=== PATIENT | female | born 1985 | race Caucasian/White ===

== ENCOUNTER 2017-08-20 22:30 | Emergency (ER) | payer OTHER, SELFPAY ==
[2017-08-21] MEDS: diphenhydrAMINE 50 MG CAP PO ×2
[2017-08-21] MEDS: FAMOTIDINE 20 MG TAB PO ×2
[2017-08-21] MEDS: ALBUTEROL 90 MCG/ACT 8GM HFA INHALER INH ×2 (00:32)
[2017-08-21] MEDS: ALBUTEROL SULFATE 2.5 MG/0.5 ML INH NEB SOLN NEB ×2 (00:33)
== END 2017-08-21 00:49 | disposition left against medical advice (07) ==
LOC: M ED 22:30
DX: O99.512 Diseases of the respiratory system complicating pregnancy, second trimester (principal); J45.909 Unspecified asthma, uncomplicated; Z3A.21 21 weeks gestation of pregnancy; Z79.899 Other long term (current) drug therapy
CPT/HCPCS: 99281

== ENCOUNTER → 2017-09-19 | Outpatient (CLI) | payer OTHER ==
[2017-09-19 20:05] LABS: HEMATOCRIT 39.3 % (36.0-47.0); HEMOGLOBIN 12.8 g/dl (12.0-15.5); MEAN CORPUSCULAR HEMOGLOBIN 31.2 pg (27.0-33.0); MEAN CORPUSCULAR HGB CONC 32.6 g/dl (32.0-36.5); MEAN CORPUSCULAR VOLUME 95.9 fl (80.0-96.0); PLATELET COUNT, AUTOMATED 323 10^3/uL (150-450); RED CELL DISTRIBUTION WIDTH 13.2 % (11.5-14.5); WHITE BLOOD COUNT 12.8 10^3/uL (4.0-10.0)
== END ==
LOC: M SMT 13:15
DX: Z34.82 Encounter for supervision of other normal pregnancy, second trimester (principal)

== ENCOUNTER → 2017-09-25 | Outpatient (CLI) | payer OTHER ==
[2017-09-25 19:50] LABS: GLUCOSE CHALLENGE TEST 1 HOUR 135 MG/DL (LESS THAN 140)
== END ==
LOC: M SMT 13:39
DX: Z36.89 Encounter for other specified antenatal screening (principal)
CPT/HCPCS: 82950

== ENCOUNTER → 2017-10-06 | Outpatient (CLI) | payer OTHER ==
[2017-10-07 09:07] LABS: RH ONLY RHOGAM 1 1
== END ==
LOC: M SMT 11:21
DX: Z36.89 Encounter for other specified antenatal screening (principal); Z3A.00 Weeks of gestation of pregnancy not specified
CPT/HCPCS: 36415

== ENCOUNTER → 2017-10-07 | Outpatient (CLI) | payer OTHER ==
[2017-10-07 07:25] LABS: GLUCOSE, FASTING 86 MG/DL (LESS THAN 95)
[2017-10-07 08:47] LABS: 1 HR GLUCOSE 144 MG/DL (LESS THAN 180)
[2017-10-07 09:52] LABS: 2 HR GLUCOSE 107 MG/DL (LESS THAN 155)
[2017-10-07 10:46] LABS: 3 HR GLUCOSE 83 MG/DL (LESS THAN 140)
== END ==
LOC: M LAB 06:55
DX: Z34.82 Encounter for supervision of other normal pregnancy, second trimester (principal); Z36.89 Encounter for other specified antenatal screening

== ENCOUNTER → 2017-11-18 | Outpatient (CLI) | payer OTHER ==
[2017-11-19 11:45] LABS: HEPATITIS C VIRUS ABY INDEX 0.2 INDEX (<0.8)
== END ==
LOC: M SMT 10:39
DX: Z34.83 Encounter for supervision of other normal pregnancy, third trimester (principal)

== ENCOUNTER → 2017-12-03 | Outpatient (REF) | payer OTHER | LOC: M SMT 13:09 | DX: Z34.83 Encounter for supervision of other normal pregnancy, third trimester (principal) ==

== ENCOUNTER 2017-12-13 18:19 | Outpatient (CLI) | payer OTHER ==
[2017-12-13] MEDS: LR 1,000 ML IV (20:24)
[2017-12-13] MEDS: LACTATED RINGER'S 1000 ML IV (20:45)
[2017-12-14] MEDS: LR 1,000 ML IV (01:19)
== END 2017-12-14 07:40 | disposition home or self-care (01) ==
LOC: M LDO 18:19
DX: O47.1 False labor at or after 37 completed weeks of gestation (principal); Z3A.37 37 weeks gestation of pregnancy
CPT/HCPCS: 59025

== ENCOUNTER 2017-12-20 16:15 | Outpatient (CLI) | payer OTHER | END 2017-12-20 20:00 | disposition home or self-care (01) | LOC: M LDO 16:15 | DX: O47.1 False labor at or after 37 completed weeks of gestation (principal); Z3A.38 38 weeks gestation of pregnancy | CPT/HCPCS: 59025 ==

== ENCOUNTER → 2017-12-22 | Outpatient (CLI) | payer OTHER ==
[2017-12-22 13:43] LABS: BASO # 0.1 10^3/uL (0.0-0.2); BASO % 0.4 % (0.0-1.0); EOS # 0.8 10^3/uL (0.0-0.50); EOS % 4.8 % (0.0-3.0); HEMOGLOBIN 12.7 g/dl (12.0-15.5); IMMATURE GRANULOCYTE % 0.4 % (0-3.0); LYMPH # 3.1 10^3/uL (1.5-4.5); LYMPH % 19.5 % (24.0-44.0); MEAN CORPUSCULAR HEMOGLOBIN 30.6 pg (27.0-33.0); MEAN CORPUSCULAR HGB CONC 33.4 g/dl (32.0-36.5); MEAN CORPUSCULAR VOLUME 91.6 fl (80.0-96.0); MONO # 1.1 10^3/uL (0.0-0.8); MONO % 6.8 % (0.0-5.0); NEUTROPHILS # 10.7 10^3/uL (1.8-7.7); NEUTROPHILS % 68.1 % (36.0-66.0); PLATELET COUNT, AUTOMATED 436 10^3/uL (150-450); RED BLOOD COUNT 4.15 10^6/uL (4.00-5.40); WHITE BLOOD COUNT 15.7 10^3/uL (4.0-10.0)
[2017-12-22 13:59] LABS: ALBUMIN 2.7 GM/DL (3.2-5.2); ALBUMIN/GLOBULIN RATIO 0.75 (1.00-1.93); ALKALINE PHOSPHATASE 97 U/L (45-117); ALT/SGPT 14 U/L (12-78); ANION GAP 9 MEQ/L (8-16); AST/SGOT 18 U/L (7-37); BILIRUBIN,DIRECT < 0.1 MG/DL (0.0-0.2); BILIRUBIN,TOTAL 0.3 MG/DL (0.2-1.0); BLOOD UREA NITROGEN 6 MG/DL (7-18); CALCIUM LEVEL 8.4 MG/DL (8.5-10.1); CARBON DIOXIDE LEVEL 23 MEQ/L (21-32); CHLORIDE LEVEL 105 MEQ/L (98-107); CREATININE FOR GFR 0.57 MG/DL (0.55-1.30); GLOMERULAR FILTRATION RATE > 60.0 (>60); GLUCOSE, FASTING 93 MG/DL (70-100); PHOSPHORUS LEVEL 3.6 MG/DL (2.5-4.9); POTASSIUM SERUM 4.1 MEQ/L (3.5-5.1); SODIUM LEVEL 137 MEQ/L (136-145); TOTAL PROTEIN 6.3 GM/DL (6.4-8.2)
== END ==
LOC: M SMT 11:12
DX: Z51.81 Encounter for therapeutic drug level monitoring (principal); Z79.899 Other long term (current) drug therapy; L40.0 Psoriasis vulgaris
CPT/HCPCS: 80076

== ENCOUNTER 2017-12-23 05:56 | Outpatient (CLI) | payer OTHER ==
[2017-12-23 07:43] LABS: HEMATOCRIT 38.1 % (36.0-47.0); HEMOGLOBIN 12.3 g/dl (12.0-15.5); MEAN CORPUSCULAR HEMOGLOBIN 30.1 pg (27.0-33.0); MEAN CORPUSCULAR HGB CONC 32.3 g/dl (32.0-36.5); MEAN CORPUSCULAR VOLUME 93.2 fl (80.0-96.0); PLATELET COUNT, AUTOMATED 417 10^3/uL (150-450); RED BLOOD COUNT 4.09 10^6/uL (4.00-5.40); RED CELL DISTRIBUTION WIDTH 13.1 % (11.5-14.5); WHITE BLOOD COUNT 14.7 10^3/uL (4.0-10.0)
[2017-12-23 08:10] LABS: ALT/SGPT 14 U/L (12-78); AMYLASE 92 U/L (25-115); AST/SGOT 14 U/L (7-37); BILIRUBIN,TOTAL 0.2 MG/DL (0.2-1.0); CREATININE FOR GFR 0.59 MG/DL (0.55-1.30); GLOMERULAR FILTRATION RATE > 60.0 (>60); LDH LACTATE DEHYDROGENASE 149 U/L (84-246); LIPASE 179 U/L (73-393)
[2017-12-23 08:20] LABS: TOTAL PROTEIN,RANDOM URINE 11.4 MG/DL (0.0-12.0)
[2017-12-23 08:20] LABS: CREATININE,RANDOM URINE 43.8 MG/DL
== END 2017-12-23 11:03 | disposition home or self-care (01) ==
LOC: M LDO 05:56
DX: O26.893 Other specified pregnancy related conditions, third trimester (principal); R10.30 Lower abdominal pain, unspecified; O47.1 False labor at or after 37 completed weeks of gestation; Z3A.38 38 weeks gestation of pregnancy
CPT/HCPCS: 76705

== ENCOUNTER → 2017-12-24 | Outpatient (CLI) | payer OTHER | LOC: M LDO 09:53 | DX: O47.1 False labor at or after 37 completed weeks of gestation (principal); Z3A.39 39 weeks gestation of pregnancy | CPT/HCPCS: 59025 ==

== ENCOUNTER 2017-12-26 07:22 | Inpatient (IN) | payer OTHER ==
[2017-12-26 10:08] LABS: HEMATOCRIT 39.4 % (36.0-47.0); MEAN CORPUSCULAR HEMOGLOBIN 30.4 pg (27.0-33.0); MEAN CORPUSCULAR VOLUME 92.3 fl (80.0-96.0); PLATELET COUNT, AUTOMATED 406 10^3/uL (150-450); RED BLOOD COUNT 4.27 10^6/uL (4.00-5.40); RED CELL DISTRIBUTION WIDTH 13.2 % (11.5-14.5); WHITE BLOOD COUNT 15.5 10^3/uL (4.0-10.0)
[2017-12-26] MEDS: PENICILLIN G POTASSIUM IV 5 MU in D5W MINI-BAG PLUS 100 ML IV (10:18)
[2017-12-26] MEDS: miSOPROStol 50 MCG 1/2 TAB (S0191) PO ×3 (10:28→19:44)
[2017-12-26 11:17] LABS: AMPHETAMINES URINE REFLEX NEGATIVE (NEGATIVE); BARBITURATES URINE REFLEX NEGATIVE (NEGATIVE); BENZODIAZEPINES URINE REFLEX NEGATIVE (NEGATIVE); CANNABINOIDS URINE REFLEX NEGATIVE (NEGATIVE); COCAINE METABOLITE URINE REFLE NEGATIVE (NEGATIVE); METHADONE URINE REFLEX NEGATIVE (NEGATIVE); OPIATES URINE REFLEX NEGATIVE (NEGATIVE); PHENCYCLIDINE URINE REFLEX NEGATIVE (NEGATIVE)
[2017-12-26] MEDS: PENICILLIN G POTASSIUM IV 2.5 MU in APPROPRIATE DILUENT 1 EA IV ×2 (14:59→18:58)
[2017-12-27] MEDS ORDERED: OXYTOCIN DRIP 30 UNITS in APPROPRIATE DILUENT 1 EA IV (00:15)
[2017-12-27] MEDS: PENICILLIN G POTASSIUM IV 2.5 MU in APPROPRIATE DILUENT 1 EA IV ×2 (00:32→03:36)
[2017-12-27] MEDS: LR 1,000 ML IV (00:33)
[2017-12-27] MEDS ORDERED: FENTANYL 2MCG/ML ROPIVACAINE 0.2% IN 0.9% NACL 200ML IVBAG As Ordered (03:07)
[2017-12-27 04:31] LABS: HBSAG L&D NEGATIVE (NEGATIVE)
[2017-12-27] MEDS ORDERED: REFRIGERATOR IV KEYS XX (05:15)
[2017-12-27] MEDS ORDERED: EPIDURAL COMMENT XX (05:15)
[2017-12-27] MEDS ORDERED: NALOXONE INJ 0.4 MG/1 ML VIAL (J2310) IV (05:15)
[2017-12-27] MEDS ORDERED: FENTANYL/ROPIVACAINE/NACL BAG 200 ML EPIDURAL (05:15)
[2017-12-27] MEDS ORDERED: ePHEDrine SULFATE 25 MG/5 ML(5MG/ML) SYRINGE IV (05:15)
[2017-12-27] MEDS ORDERED: EPIDURAL/PCA KEYS XX (05:15)
[2017-12-27] MEDS ORDERED: ONDANSETRON 4MG/2ML VIAL (J2405) IV (05:15)
[2017-12-27] MEDS ORDERED: LACTATED RINGER'S 1000 ML IV (05:15)
[2017-12-27] MEDS: OXYTOCIN DRIP 30 UNITS in APPROPRIATE DILUENT 1 EA IV (05:42)
[2017-12-27] MEDS ORDERED: DIBUCAINE 1% OINTMENT 30GM TOP (05:45)
[2017-12-27] MEDS ORDERED: DOCUSATE SODIUM 100 MG CAP PO (05:45)
[2017-12-27] MEDS ORDERED: METHYLERGONOVINE MALEATE 0.2 MG TAB PO (05:45)
[2017-12-27] MEDS ORDERED: MEASLES,MUMPS,RUBELLA VACCINE INJ (MMR-II) (90707) SC (05:45)
[2017-12-27] MEDS: PRENATAL VITAMINS CHEWABLE TABLET PO (09:58)
[2017-12-27] MEDS: ACETAMINOPHEN 500 MG TAB PO ×2 (11:13→17:23)
[2017-12-27 11:35] LABS: FETAL SCREEN PROF. 1 1
[2017-12-27] MEDS: RHOGAM 300 MCG (1500 IU) INJ (J2790) IM (12:17)
[2017-12-27] MEDS: IBUPROFEN 800 MG TAB PO (15:25)
[2017-12-27] MEDS: diphenhydrAMINE INJ 50MG/ML VIAL (J1200) IV (18:59)
[2017-12-27] MEDS: CitaloPRAM (CeleXA) 20 MG TAB PO (22:48)
[2017-12-28] MEDS: ACETAMINOPHEN 500 MG TAB PO (01:37)
[2017-12-28] MEDS: IBUPROFEN 800 MG TAB PO (01:37)
[2017-12-28] MEDS: PRENATAL VITAMINS CHEWABLE TABLET PO (09:04)
== END 2017-12-28 12:00 | disposition home or self-care (01) | DRG 775 ==
LOC: M LDI 07:22 → M OBS 12-27 10:26
PROVIDERS: Advanced Practice Midwife
PROC: 3E0P7GC Introduction of Other Therapeutic Substance into Female Reproductive, Via Natural or Artificial Opening (ICD-10-PCS; 2017-12-26)
PROC: 10E0XZZ Delivery of Products of Conception, External Approach (ICD-10-PCS; principal; 2017-12-27)
DX: O99.344 Other mental disorders complicating childbirth (principal); F33.9 Major depressive disorder, recurrent, unspecified; Z3A.39 39 weeks gestation of pregnancy; F43.10 Post-traumatic stress disorder, unspecified; O99.824 Streptococcus B carrier state complicating childbirth; O99.52 Diseases of the respiratory system complicating childbirth; J45.909 Unspecified asthma, uncomplicated; O69.81X0 Labor and delivery complicated by cord around neck, without compression, not applicable or unspecified; Z37.0 Single live birth

== ENCOUNTER → 2018-01-07 | Outpatient (CLI) | payer OTHER ==
[2018-01-07 17:43] LABS: ALBUMIN 3.7 GM/DL (3.2-5.2); ALBUMIN/GLOBULIN RATIO 1.09 (1.00-1.93); ALKALINE PHOSPHATASE 118 U/L (45-117); ALT/SGPT 26 U/L (12-78); ANION GAP 10 MEQ/L (8-16); AST/SGOT 16 U/L (7-37); BILIRUBIN,DIRECT < 0.1 MG/DL (0.0-0.2); BILIRUBIN,TOTAL 0.5 MG/DL (0.2-1.0); BLOOD UREA NITROGEN 12 MG/DL (7-18); CARBON DIOXIDE LEVEL 25 MEQ/L (21-32); CHLORIDE LEVEL 105 MEQ/L (98-107); CREATININE FOR GFR 0.87 MG/DL (0.55-1.30); GLOMERULAR FILTRATION RATE > 60.0 (>60); GLUCOSE, FASTING 90 MG/DL (70-100); PHOSPHORUS LEVEL 3.8 MG/DL (2.5-4.9); POTASSIUM SERUM 4.5 MEQ/L (3.5-5.1); SODIUM LEVEL 140 MEQ/L (136-145); TOTAL PROTEIN 7.1 GM/DL (6.4-8.2)
== END ==
LOC: M LRY 10:45
DX: Z51.81 Encounter for therapeutic drug level monitoring (principal); Z79.899 Other long term (current) drug therapy; L40.0 Psoriasis vulgaris
CPT/HCPCS: 80076

== ENCOUNTER → 2018-01-19 | Outpatient (CLI) | payer OTHER ==
[2018-01-23 14:35] LABS: QuantiFERON-TB Gold Plus Negative (Negative)
== END ==
LOC: M SMT 15:45
DX: L40.0 Psoriasis vulgaris (principal); Z51.81 Encounter for therapeutic drug level monitoring; Z79.899 Other long term (current) drug therapy
CPT/HCPCS: 36415

== ENCOUNTER → 2018-03-03 | Outpatient (REF) | payer OTHER ==
[~2018-03-03] MED LIST: CELE10TA PO; IBUP-1114 PO; MAPA500T17 PO; OMEP40CA2 PO; PRENTAB16 PO
== END ==
LOC: M LAB REF 12:59
PROVIDERS: ATTEND Advanced Practice Midwife
DX: F32.1 Major depressive disorder, single episode, moderate (principal)

== ENCOUNTER → 2018-04-01 | Outpatient (CLI) | payer OTHER ==
[~2018-04-01] MED LIST changes: -MAPA500T17 PO; +MAPA500T2 PO
[2018-04-01 17:01] LABS: BASO # 0.1 10^3/uL (0.0-0.2); BASO % 0.8 % (0.0-1.0); EOS # 0.6 10^3/uL (0.0-0.50); EOS % 6.1 % (0.0-3.0); HEMATOCRIT 44.7 % (36.0-47.0); HEMOGLOBIN 14.5 g/dl (12.0-15.5); LYMPH # 3.4 10^3/uL (1.5-4.5); LYMPH % 35.3 % (24.0-44.0); MEAN CORPUSCULAR HEMOGLOBIN 29.9 pg (27.0-33.0); MEAN CORPUSCULAR HGB CONC 32.4 g/dl (32.0-36.5); MEAN CORPUSCULAR VOLUME 92.2 fl (80.0-96.0); MONO # 0.7 10^3/uL (0.0-0.8); MONO % 7.4 % (0.0-5.0); NEUTROPHILS # 4.8 10^3/uL (1.8-7.7); NEUTROPHILS % 50.2 % (36.0-66.0); PLATELET COUNT, AUTOMATED 354 10^3/uL (150-450); RED BLOOD COUNT 4.85 10^6/uL (4.00-5.40); WHITE BLOOD COUNT 9.5 10^3/uL (4.0-10.0)
[2018-04-01 17:08] LABS: ALBUMIN 3.8 GM/DL (3.2-5.2); ALT/SGPT 33 U/L (12-78); BILIRUBIN,TOTAL 0.4 MG/DL (0.2-1.0); BLOOD UREA NITROGEN 12 MG/DL (7-18); CALCIUM LEVEL 8.9 MG/DL (8.5-10.1); CARBON DIOXIDE LEVEL 25 MEQ/L (21-32); CHLORIDE LEVEL 106 MEQ/L (98-107); CHOLESTEROL LEVEL 242 MG/DL (<200); CREATININE FOR GFR 0.79 MG/DL (0.55-1.30); ETHYL ALCOHOL (ETHANOL) < 0.003 % (0.000-0.010); FREE T4 0.96 NG/DL (0.76-1.46); GLOMERULAR FILTRATION RATE > 60.0 (>60); GLUCOSE, FASTING 81 MG/DL (70-100); HDL CHOLESTEROL 40 MG/DL (>40); LDL CHOLESTEROL 133 MG/DL (<100); NON-HDL-C 202 MG/DL; POTASSIUM SERUM 4.3 MEQ/L (3.5-5.1); SODIUM LEVEL 140 MEQ/L (136-145); TOTAL PROTEIN 7.3 GM/DL (6.4-8.2); TRIGLYCERIDES LEVEL 343 MG/DL (<150)
[2018-04-01 17:28] LABS: HEMOGLOBIN A1c 5.3 %
== END ==
LOC: M LRY 11:37
PROVIDERS: ATTEND Physician Assistant
DX: Z13.29 Encounter for screening for other suspected endocrine disorder (principal)
CPT/HCPCS: 36415; 80053; 80061; 82652; 83036; 84439; 84443; 85025; G0480

== ENCOUNTER → 2018-07-17 | Outpatient (REF) | payer OTHER | LOC: M LAB REF 13:33 | PROVIDERS: ATTEND Advanced Practice Midwife | DX: Z12.4 Encounter for screening for malignant neoplasm of cervix (principal) | CPT/HCPCS: 87624; G0123 ==

== ENCOUNTER → 2018-08-13 | Outpatient (CLI) | payer OTHER ==
[2018-08-13 20:25] LABS: BASO # 0.1 10^3/uL (0.0-0.2); BASO % 0.7 % (0.0-1.0); EOS # 0.7 10^3/uL (0.0-0.50); EOS % 7.3 % (0.0-3.0); HEMATOCRIT 44.5 % (36.0-47.0); HEMOGLOBIN 14.6 g/dl (12.0-15.5); LYMPH # 2.6 10^3/uL (1.5-4.5); LYMPH % 27.7 % (24.0-44.0); MEAN CORPUSCULAR HEMOGLOBIN 29.9 pg (27.0-33.0); MEAN CORPUSCULAR HGB CONC 32.8 g/dl (32.0-36.5); MEAN CORPUSCULAR VOLUME 91.2 fl (80.0-96.0); MONO # 1.1 10^3/uL (0.0-0.8); MONO % 11.9 % (0.0-5.0); NEUTROPHILS % 52.2 % (36.0-66.0); PLATELET COUNT, AUTOMATED 396 10^3/uL (150-450); RED BLOOD COUNT 4.88 10^6/uL (4.00-5.40); WHITE BLOOD COUNT 9.5 10^3/uL (4.0-10.0)
[2018-08-13 20:34] LABS: ALBUMIN 4.1 GM/DL (3.2-5.2); ALT/SGPT 124 U/L (12-78); BILIRUBIN,DIRECT < 0.1 MG/DL (0.0-0.2); BILIRUBIN,TOTAL 0.2 MG/DL (0.2-1.0); BLOOD UREA NITROGEN 12 MG/DL (7-18); CALCIUM LEVEL 9.3 MG/DL (8.5-10.1); CARBON DIOXIDE LEVEL 27 MEQ/L (21-32); CHLORIDE LEVEL 106 MEQ/L (98-107); CREATININE FOR GFR 0.76 MG/DL (0.55-1.30); GLOMERULAR FILTRATION RATE > 60.0 (>60); GLUCOSE, FASTING 84 MG/DL (70-100); PHOSPHORUS LEVEL 4.9 MG/DL (2.5-4.9); POTASSIUM SERUM 4.4 MEQ/L (3.5-5.1); SODIUM LEVEL 141 MEQ/L (136-145); TOTAL PROTEIN 7.7 GM/DL (6.4-8.2)
[2018-08-14 12:08] LABS: HEPATITIS B SURFACE ANTIGEN NEGATIVE (NEGATIVE)
[2018-08-14 12:35] LABS: HEPATITIS B CORE ANTIBODY IGM NEGATIVE (NEGATIVE)
[2018-08-14 12:37] LABS: HEPATITIS A ANTIBODY IGM NEGATIVE (NEGATIVE)
== END ==
LOC: M LRY 16:36
PROVIDERS: ATTEND Nurse Practitioner Family
DX: Z51.81 Encounter for therapeutic drug level monitoring (principal); Z79.899 Other long term (current) drug therapy; L40.0 Psoriasis vulgaris

== ENCOUNTER → 2019-02-18 | Outpatient (REF) | payer OTHER ==
[~2019-02-18] MED LIST changes: -OMEP40CA2 PO; +OMEP40CA97 PO
== END ==
LOC: M SFHCLERA 16:01
PROVIDERS: ATTEND Nurse Practitioner Family
DX: J02.9 Acute pharyngitis, unspecified (principal)

== ENCOUNTER → 2019-02-18 | Outpatient (CLI) | payer OTHER ==
[~2019-02-18] MED LIST changes: +FLUO40CA; +KEFL500C17 PO
--- NOTE | 2019-02-18 11:16 | REP ---
Clinical: Cough . Comparison: 01/07/2018 . Technique: PA and lateral. Findings: The mediastinum and cardiac silhouette are normal. The lung marion are clear and without acute consolidation, effusion, or pneumothorax. The skeletal structures are intact and normal. Impression: 1. No acute cardiopulmonary process. Electronically Signed by Daniel Santana MD 02/18/2019 11:07 A
== END ==
LOC: M LRY 10:27
PROVIDERS: ATTEND Nurse Practitioner Family
DX: J02.9 Acute pharyngitis, unspecified (principal)
CPT/HCPCS: 71046; 87880; 94640; G0463

== ENCOUNTER 2019-03-03 16:36 | Emergency (ER) | payer OTHER ==
[~2019-03-03] VITALS: Ht 167.6 cm; Wt 72.0 kg
[~2019-03-03 16:36] MED LIST changes: -FLUO40CA; -KEFL500C17 PO
[2019-03-03] MEDS ORDERED: FLUO40CA (16:53)
[2019-03-03 17:41] LABS: BASO # 0.1 10^3/uL (0.0-0.2); BASO % 0.9 % (0.0-1.0); EOS # 0.6 10^3/uL (0.0-0.5); EOS % 5.5 % (0.0-3.0); HEMATOCRIT 42.7 % (36.0-47.0); HEMOGLOBIN 13.8 g/dl (12.0-15.5); LYMPH # 2.6 10^3/uL (1.5-5.0); LYMPH % 24.7 % (24.0-44.0); MEAN CORPUSCULAR HEMOGLOBIN 29.6 pg (27.0-33.0); MEAN CORPUSCULAR HGB CONC 32.3 g/dl (32.0-36.5); MEAN CORPUSCULAR VOLUME 91.4 fl (80.0-96.0); MONO # 0.9 10^3/uL (0.0-0.8); MONO % 8.2 % (0.0-5.0); NEUTROPHILS # 6.2 10^3/uL (1.5-8.5); NEUTROPHILS % 60.4 % (36.0-66.0); PLATELET COUNT, AUTOMATED 401 10^3/uL (150-450); RED BLOOD COUNT 4.67 10^6/uL (4.00-5.40); WHITE BLOOD COUNT 10.3 10^3/uL (4.0-10.0)
--- NOTE | 2019-03-03 19:31 | REPVR ---
PROCEDURE INFORMATION: Exam: US First Trimester, Transabdominal and US , Transvaginal Exam date and time: 03/03/2019 6:39 PM Age: 33 years old Clinical indication: Lmp or gestational age (in weeks): 5wks; Antepartum complications; Bleeding; ; Additional info: Vag bleeding/pos test TECHNIQUE: Imaging protocol: Real-time transabdominal obstetrical ultrasound of the maternal pelvis and a first trimester , less than 14 weeks 0 days, with image documentation. Transvaginal imaging was used for better evaluation of the fetus and adnexa. COMPARISON: Obs. Limited, [facility] US 12/23/2017 8:04 AM FINDINGS: GESTATION: Gestation: Intrauterine gestational sac with yolk sac. Gestational sac measures 7.6 mm. No pole is identified. BIOMETRY: Estimated gestational age: Estimated gestational age is 5 weeks and 4 days. Estimated due date: Estimated date of delivery is 10/30/2019. MATERNAL: Uterus: Uterus measures 9.4 x 4.7 x 5.9 cm. Cervix: Unremarkable. Right adnexa: Right ovary measures 3.1 x 1.7 x 1.7 cm. Right ovary appears within normal limits. Left adnexa: Left ovary measures 3.7 x 1.9 x 2.2 cm. Left ovarian probable corpus acute cyst measures 2.1 cm. Intraperitoneal: No intraperitoneal free fluid. IMPRESSION: Intrauterine gestational sac and yolk sac with estimated gestational age of 5 weeks and 4 days. No pole is identified. Electronically signed by: Shane Mayberry On 03/03/2019 19:30:58 PM
[2019-03-03] MEDS ORDERED: RHOGAM 300 MCG (1500 IU) INJ (J2790) IM ONE (20:00)
[2019-03-03 20:27] VITALS: BP 132/78
[2019-03-03 20:55] LABS: CHLAMYDIA DNA AMPLIFICATION NEGATIVE (NEGATIVE); GC DNA AMPLIFICATION NEGATIVE (NEGATIVE)
== END 2019-03-03 20:29 | disposition home or self-care (01) ==
LOC: M ED 16:36
DX: O20.0 Threatened abortion (principal); Z3A.01 Less than 8 weeks gestation of pregnancy; O99.511 Diseases of the respiratory system complicating pregnancy, first trimester; J45.909 Unspecified asthma, uncomplicated; O99.341 Other mental disorders complicating pregnancy, first trimester; F31.9 Bipolar disorder, unspecified; O99.611 Diseases of the digestive system complicating pregnancy, first trimester; K21.9 Gastro-esophageal reflux disease without esophagitis; Z79.899 Other long term (current) drug therapy
CPT/HCPCS: 36415; 76801; 76817; 81001; 84702; 85025; 86850; 86900; 86901; 87210; 87491; 87591; 93976; 96372; 99283; J2790

== ENCOUNTER → 2019-03-04 | Outpatient (REF) | payer OTHER ==
[~2019-03-04] MED LIST changes: +FLUO40CA; +KEFL500C17 PO
== END ==
LOC: M PLALAB 10:56
PROVIDERS: ATTEND Obstetrics & Gynecology
DX: Z53.9 Procedure and treatment not carried out, unspecified reason (principal)

== ENCOUNTER → 2019-03-05 | Outpatient (CLI) | payer OTHER | LOC: M PLALAB 13:07 | PROVIDERS: ATTEND Obstetrics & Gynecology | DX: O20.0 Threatened abortion (principal); Z3A.00 Weeks of gestation of pregnancy not specified ==

== ENCOUNTER 2019-03-07 10:54 | Emergency (ER) | payer OTHER ==
[~2019-03-07] VITALS: Ht 165.1 cm; Wt 71.6 kg
[~2019-03-07 10:54] MED LIST changes: -KEFL500C17 PO
[2019-03-07 13:25] VITALS: BP 114/73
[2019-03-07] MEDS ORDERED: KEFL500C17 PO (13:32)
--- NOTE | 2019-03-08 07:50 | REP ---
REASON: Pelvic pain and vaginal bleeding. Within the uterus, there is an anechoic structure with increased echoes surrounding it consistent with a decidual reaction. Within the gestational sac, there is echogenic material consistent with a pole with a mean crown-rump length the measurement of which is consistent with a 0-kerc-5-day gestational age. Based on that the estimated date of delivery is 10/31/2019. Doppler interrogation of the heart shows the heart rate of 89 beats per minute. No chorionic or subchorionic abnormality was noted. Evaluation of the maternal adnexal spaces show no gross abnormalities. A well-defined yolk sac was seen within the gestational sac. IMPRESSION: Early OB ultrasound as described above. Electronically Signed by Boby Prieto DO 03/12/2019 04:13 P
== END 2019-03-07 13:51 | disposition home or self-care (01) ==
LOC: M ED 10:54
DX: O20.0 Threatened abortion (principal); O99.511 Diseases of the respiratory system complicating pregnancy, first trimester; J45.909 Unspecified asthma, uncomplicated; O99.611 Diseases of the digestive system complicating pregnancy, first trimester; K21.9 Gastro-esophageal reflux disease without esophagitis; Z3A.01 Less than 8 weeks gestation of pregnancy; Z79.899 Other long term (current) drug therapy

== ENCOUNTER → 2019-03-07 | Outpatient (CLI) | payer OTHER | LOC: M LAB 10:35 | PROVIDERS: ATTEND Advanced Practice Midwife | DX: O20.0 Threatened abortion (principal) ==

== ENCOUNTER → 2019-03-29 | Outpatient (CLI) | payer OTHER ==
[~2019-03-29] MED LIST changes: +KEFL500C17 PO
[2019-03-29 16:23] LABS: BASO # 0.1 10^3/uL (0.0-0.2); BASO % 0.6 % (0.0-1.0); EOS # 0.4 10^3/uL (0.0-0.5); EOS % 4.1 % (0.0-3.0); HEMATOCRIT 44.5 % (36.0-47.0); HEMOGLOBIN 14.1 g/dl (12.0-15.5); LYMPH # 2.1 10^3/uL (1.5-5.0); LYMPH % 20.1 % (24.0-44.0); MEAN CORPUSCULAR HEMOGLOBIN 29.7 pg (27.0-33.0); MEAN CORPUSCULAR HGB CONC 31.7 g/dl (32.0-36.5); MEAN CORPUSCULAR VOLUME 93.7 fl (80.0-96.0); MONO # 0.9 10^3/uL (0.0-0.8); MONO % 8.2 % (0.0-5.0); NEUTROPHILS % 66.5 % (36.0-66.0); PLATELET COUNT, AUTOMATED 406 10^3/uL (150-450); RED BLOOD COUNT 4.75 10^6/uL (4.00-5.40); WHITE BLOOD COUNT 10.5 10^3/uL (4.0-10.0)
[2019-03-29 17:25] LABS: HIV 1&2 SCREEN CENTAUR NEGATIVE (NEGATIVE); RUBELLA IgG QUALITATIVE IMMUNE (IMMUNE)
[2019-03-29 18:11] LABS: CHLAMYDIA DNA AMPLIFICATION NEGATIVE (NEGATIVE); GC DNA AMPLIFICATION NEGATIVE (NEGATIVE)
== END ==
LOC: M PLALAB 13:26
PROVIDERS: ATTEND Specialist
DX: Z34.81 Encounter for supervision of other normal pregnancy, first trimester (principal)

== ENCOUNTER → 2019-04-08 | Outpatient (CLI) | payer OTHER | LOC: M PLALAB 10:46 | PROVIDERS: ATTEND Specialist | DX: Z13.79 Encounter for other screening for genetic and chromosomal anomalies (principal) ==

== ENCOUNTER → 2019-06-14 | Outpatient (CLI) | payer OTHER ==
--- NOTE | 2019-06-14 14:20 | REP ---
REASON FOR EXAM: anatomy. Multiple ultrasonographic images of the gravid uterus show a single living intrauterine gestation in the breech presentation. Doppler interrogation of the heart shows a heart rate of 140 beats per minute. The placenta is anterior and appears to be low lying approximately 2.3 cm away from the internal os. The subjective amniotic fluid volume is within normal limits. The cervix measured 3.2 cm in length and is closed. Evaluation of the maternal adnexal spaces shows no abnormalities. BPD 4.6 cm = 19 weeks 5 days HC 17.2 cm = 19 weeks 5 days AC 13.9 cm = 19 weeks 2 days FL 3.1 cm = 19 weeks 5 days The estimated weight is 296 grams which is at the 40th percentile for a 19 week 5 day gestational age. The structures visualized are unremarkable are as follows: Thalami, cavum septum pellucidum, cerebellum, cisterna magna, cerebral ventricles, spine, kidneys, stomach, cord insertion, three vessel umbilical cord, urinary bladder, upper and lower extremities, facial features, and right and left ventricular outflow tracts. Evaluation of the four chamber heart showed an intracardiac echogenic focus. Four chambers were identified. IMPRESSION: Single living intrauterine gestation as described above with an estimated gestational age of 19 weeks 5 days via a composite criteria and an estimated date of delivery of 11/03/2019 by today's exam. Note is made of an intracardiac echogenic focus suggesting chordae tendineae, however, a 2 week followup examination is recommended.
== END ==
LOC: M WHC 10:47
PROVIDERS: ATTEND Advanced Practice Midwife
DX: Z34.82 Encounter for supervision of other normal pregnancy, second trimester (principal)

== ENCOUNTER → 2019-07-09 | Outpatient (CLI) | payer OTHER ==
--- NOTE | 2019-07-10 09:15 | REP ---
REASON FOR EXAM: Followup. Multiple ultrasonographic images of the gravid uterus show a single living intrauterine gestation in the cephalic presentation. Doppler interrogation of the heart shows a heart rate of 163 beats per minute. Placenta is anterior and not low lying. The subjective amniotic fluid volume is within normal limits. The cervix measures 3.7 cm in length and is closed. Evaluation of the maternal adnexal spaces show no abnormalities. Once again, there is an intracardiac echogenic focus within the left ventricle. IMPRESSION: Persistent echogenic focus in the left ventricle likely cordae tendinea, however, followup is recommended.
== END ==
LOC: M WHC 14:28
PROVIDERS: ATTEND Nurse Practitioner Women's Health
DX: Z3A.23 23 weeks gestation of pregnancy (principal); Z34.92 Encounter for supervision of normal pregnancy, unspecified, second trimester

== ENCOUNTER → 2019-07-27 | Outpatient (REF) | payer OTHER ==
[2019-07-27 12:55] LABS: HEMATOCRIT 38.7 % (36.0-47.0); HEMOGLOBIN 12.8 g/dl (12.0-15.5); MEAN CORPUSCULAR HEMOGLOBIN 31.4 pg (27.0-33.0); MEAN CORPUSCULAR HGB CONC 33.1 g/dl (32.0-36.5); MEAN CORPUSCULAR VOLUME 94.9 fl (80.0-96.0); PLATELET COUNT, AUTOMATED 315 10^3/uL (150-450); RED BLOOD COUNT 4.08 10^6/uL (4.00-5.40)
== END ==
LOC: M PLALAB 09:27
PROVIDERS: ATTEND Nurse Practitioner Women's Health
DX: Z36.89 Encounter for other specified antenatal screening (principal); Z3A.23 23 weeks gestation of pregnancy
CPT/HCPCS: 36415; 82950; 85027; 86850; 86900; 86901; J2790

== ENCOUNTER → 2019-07-30 | Outpatient (CLI) | payer OTHER ==
[2019-07-30 09:14] LABS: BASO # 0.1 10^3/uL (0.0-0.2); BASO % 0.5 % (0.0-1.0); EOS # 0.6 10^3/uL (0.0-0.5); EOS % 6.3 % (0.0-3.0); HEMOGLOBIN 11.9 g/dl (12.0-15.5); LYMPH # 2.1 10^3/uL (1.5-5.0); LYMPH % 20.4 % (24.0-44.0); MEAN CORPUSCULAR HEMOGLOBIN 30.1 pg (27.0-33.0); MEAN CORPUSCULAR HGB CONC 32.2 g/dl (32.0-36.5); MEAN CORPUSCULAR VOLUME 93.4 fl (80.0-96.0); MONO # 0.7 10^3/uL (0.0-0.8); MONO % 7.2 % (0.0-5.0); NEUTROPHILS # 6.6 10^3/uL (1.5-8.5); NEUTROPHILS % 64.9 % (36.0-66.0); PLATELET COUNT, AUTOMATED 301 10^3/uL (150-450); RED BLOOD COUNT 3.96 10^6/uL (4.00-5.40); WHITE BLOOD COUNT 10.2 10^3/uL (4.0-10.0)
[2019-07-30 09:28] LABS: ALBUMIN 2.7 GM/DL (3.2-5.2); ALT/SGPT 13 U/L (12-78); BILIRUBIN,DIRECT < 0.1 MG/DL (0.0-0.2); BILIRUBIN,TOTAL 0.2 MG/DL (0.2-1.0); BLOOD UREA NITROGEN 4 MG/DL (7-18); CARBON DIOXIDE LEVEL 25 MEQ/L (21-32); CHLORIDE LEVEL 107 MEQ/L (98-107); CREATININE FOR GFR 0.51 MG/DL (0.55-1.30); GLOMERULAR FILTRATION RATE > 60.0 (>60); GLUCOSE, FASTING 84 MG/DL (70-100); PHOSPHORUS LEVEL 2.9 MG/DL (2.5-4.9); SODIUM LEVEL 140 MEQ/L (136-145); TOTAL PROTEIN 6.3 GM/DL (6.4-8.2)
== END ==
LOC: M LAB 08:11
PROVIDERS: ATTEND Nurse Practitioner Family
DX: L40.0 Psoriasis vulgaris (principal); Z51.81 Encounter for therapeutic drug level monitoring; Z79.899 Other long term (current) drug therapy; O99.810 Abnormal glucose complicating pregnancy; Z3A.25 25 weeks gestation of pregnancy

== ENCOUNTER → 2019-07-30 | Outpatient (CLI) | payer OTHER | LOC: M LAB 08:08 | PROVIDERS: ATTEND Obstetrics & Gynecology | DX: O99.810 Abnormal glucose complicating pregnancy (principal); Z3A.25 25 weeks gestation of pregnancy ==

== ENCOUNTER 2019-08-12 16:47 | Emergency (ER) | payer OTHER ==
[~2019-08-12] VITALS: Ht 165.1 cm; Wt 77.3 kg
[2019-08-12] MEDS ORDERED: SERT25TA21 (16:54)
[2019-08-12] MEDS ORDERED: MONT10TA4 (16:54)
[2019-08-12] MEDS ORDERED: COSE1INJ (16:54)
[2019-08-12] MEDS ORDERED: PANT40TA3 (16:54)
[2019-08-12] MEDS ORDERED: BUSP5TA (16:54)
[2019-08-12] MEDS ORDERED: HYDR25OI TOP (19:03)
[2019-08-12 19:12] VITALS: BP 130/84
== END 2019-08-12 19:13 | disposition home or self-care (01) ==
LOC: M ED 16:47
DX: L30.9 Dermatitis, unspecified (principal); J45.909 Unspecified asthma, uncomplicated; K21.9 Gastro-esophageal reflux disease without esophagitis; F41.9 Anxiety disorder, unspecified; F32.9 Major depressive disorder, single episode, unspecified; Z3A.29 29 weeks gestation of pregnancy; Z79.899 Other long term (current) drug therapy

== ENCOUNTER 2019-09-25 06:13 | Outpatient (CLI) | payer OTHER ==
[~2019-09-25] VITALS: Ht 167.6 cm; Wt 77.0 kg
[~2019-09-25 06:13] MED LIST changes: +BUSP5TA; +COSE1INJ; +HYDR25OI TOP; +MONT10TA4; +PANT40TA29; +SERT25TA21
[2019-09-25] MEDS ORDERED: PRENTAB9 PO (07:15)
--- NOTE | 2019-09-25 08:03 | IPNPDOC ---
Text Note Date of Service The patient was seen on 09/25/19. NOTE Outpatient 34 yo NIRMALA 10/31/2019. Presents @ 34w5d with complaint of sporadic lower abdominal pain. Denies LOF, bleeding or timeable UC. Home life has been increasingly stressful this week. Partner is deployed and has told her he wants a divorce. Crying. Abdomen soft, gravid, appropriate for gestation. Cat I tracing No UC on monitor Bedside sono confirms vertex presentation, was breech earlier in the week. SVE parous, LTC. Offered pt support measures for coping. Declined at this time Reviewed self care, after hours access, PTL precautions, daily FKC, Discharged home. Keep next appt Angelique Rodriguez CNM Sep 25, 2019 08:03
== END 2019-09-25 07:49 | disposition home or self-care (01) ==
LOC: M LDO 06:13
PROVIDERS: ATTEND Advanced Practice Midwife
DX: O26.893 Other specified pregnancy related conditions, third trimester (principal); Z3A.34 34 weeks gestation of pregnancy
CPT/HCPCS: 59025; G0378; G0463

== ENCOUNTER 2019-10-24 01:18 | Inpatient (IN) | payer OTHER ==
[~2019-10-24 01:18] MED LIST changes: +PRENTAB9 PO
[2019-10-24] MEDS ORDERED: PENICILLIN G POTASSIUM 5 MU VIAL As Ordered ONE (03:24)
[2019-10-24] MEDS ORDERED: miSOPROStol 50 MCG 1/2 TAB (S0191) ONE ×2 (03:24→07:28)
[2019-10-24] MEDS ORDERED: miSOPROStol 50 MCG 1/2 TAB (S0191) As Ordered ONE ×2 (03:24→07:28)
[2019-10-24] MEDS ORDERED: PENICILLIN G POTASSIUM 5 MU VIAL ONE (03:24)
[2019-10-24] MEDS ORDERED: PENICILLIN 100,000 U/ML SYRINGE 2.5MU ONE ×2 (07:28→11:03)
[2019-10-24] MEDS ORDERED: PENICILLIN 100,000 U/ML SYRINGE 2.5MU As Ordered ONE ×2 (07:29→11:07)
[2019-10-24] MEDS ORDERED: ONDANSETRON 4MG/2ML VIAL ONE (11:03)
[2019-10-24] MEDS ORDERED: OXYTOCIN 30 UNITS IN 0.9% NaCl 500ML IV BAG (J2590) ONE (11:03)
[2019-10-24] MEDS ORDERED: FENTANYL 2MCG/ML ROPIVACAINE 0.2% IN 0.9% NACL 100ML IVBAG ONE (11:03)
[2019-10-24] MEDS ORDERED: FENTANYL 2MCG/ML ROPIVACAINE 0.2% IN 0.9% NACL 100ML IVBAG As Ordered ONE (11:03)
[2019-10-24] MEDS ORDERED: ONDANSETRON 4MG/2ML VIAL As Ordered ONE (12:03)
[2019-10-24] MEDS ORDERED: OXYTOCIN 30 UNITS IN 0.9% NaCl 500ML IV BAG (J2590) As Ordered ONE (12:40)
[2019-10-24] MEDS ORDERED: IBUPROFEN 800 MG TAB ONE (17:55)
[2019-10-24] MEDS ORDERED: IBUPROFEN 800 MG TAB As Ordered ONE (17:55)
[2019-10-24] MEDS ORDERED: DOCUSATE SODIUM 100 MG CAP As Ordered ONE (17:55)
[2019-10-24] MEDS ORDERED: DOCUSATE SODIUM 100 MG CAP ONE (17:55)
[2019-10-24] MEDS ORDERED: ACETAMINOPHEN 500 MG TAB As Ordered ONE (19:49)
[2019-10-24] MEDS ORDERED: ACETAMINOPHEN 500 MG TAB ONE (19:49)
[2019-10-24] MEDS ORDERED: PANTOPRAZOLE 40MG TAB (PROTONIX) ONE (19:49)
[2019-10-24] MEDS ORDERED: PANTOPRAZOLE 40MG TAB (PROTONIX) As Ordered ONE (20:53)
[2019-10-25] MEDS ORDERED: IBUPROFEN 800 MG TAB As Ordered ONE ×2 (02:17→12:31)
[2019-10-25] MEDS ORDERED: IBUPROFEN 800 MG TAB ONE ×2 (02:17→12:31)
[2019-10-25] MEDS ORDERED: MONTELUKAST 10 MG TAB ONE (09:00)
[2019-10-25] MEDS ORDERED: SERTRALINE HCL 25 MG TABLET ONE (09:00)
[2019-10-25] MEDS ORDERED: DOCUSATE SODIUM 100 MG CAP ONE (10:10)
[2019-10-25] MEDS ORDERED: DOCUSATE SODIUM 100 MG CAP As Ordered ONE (10:10)
[2019-10-25] MEDS ORDERED: ACETAMINOPHEN 500 MG TAB As Ordered ONE (18:38)
[2019-10-25] MEDS ORDERED: ACETAMINOPHEN 500 MG TAB ONE (18:38)
[2019-10-25] MEDS ORDERED: PANTOPRAZOLE 40MG TAB (PROTONIX) As Ordered ONE (21:03)
[2019-10-25] MEDS ORDERED: PANTOPRAZOLE 40MG TAB (PROTONIX) ONE (21:03)
[2019-10-26] MEDS ORDERED: IBUPROFEN 800 MG TAB As Ordered ONE (05:25)
[2019-10-26] MEDS ORDERED: IBUPROFEN 800 MG TAB ONE (05:25)
[2019-12-10 18:42] LABS: HEMATOCRIT 38.2 % (36.0-47.0); HEMOGLOBIN 12.3 g/dl (12.0-15.5); MEAN CORPUSCULAR HEMOGLOBIN 29.9 pg (27.0-33.0); MEAN CORPUSCULAR HGB CONC 32.2 g/dl (32.0-36.5); MEAN CORPUSCULAR VOLUME 92.9 fl (80.0-96.0); PLATELET COUNT, AUTOMATED 245 10^3/uL (150-450); RED BLOOD COUNT 4.11 10^6/uL (4.00-5.40); WHITE BLOOD COUNT 14.3 10^3/uL (4.0-10.0)
--- NOTE | 2019-12-23 17:31 | DN ---
DATE OF DELIVERY: 10/24/2019 GENDER: Female APGARS: 7 and 9 PREDELIVERY DIAGNOSIS: 39 weeks labor induction. POSTDELIVERY DIAGNOSIS: Delivered. PROCEDURE: Spontaneous vaginal delivery. ASSEMBLER CONVERTIBLE TOP: Prasanna Pierre MD ANESTHESIA: Epidural. ESTIMATED BLOOD LOSS: 300 mL. FINDINGS: A 7 pound 8 ounce female with Apgars 7 and 9. DESCRIPTION OF DELIVERY: After 3-4 minutes second stage of labor, patient had spontaneous delivery of a 7 pound 8 ounce female with Apgars 7 and 9 under epidural anesthesia. Nuchal cord x1 was delivered through. Shoulders delivered with ease. The baby was handed to the mother. The cord was doubly clamped and cut. The placenta delivered spontaneously and appeared to be intact. The patient received intravenous (IV) Pitocin and immediately after delivered the placenta. There were no vaginal lacerations present. Sponge counts were correct. MTDD
== END 2019-10-26 11:19 | disposition home or self-care (01) | DRG 807 ==
LOC: M LDI 01:18
PROVIDERS: ADMIT Specialist; ATTEND Specialist
PROC: 10E0XZZ Delivery of Products of Conception, External Approach (ICD-10-PCS; principal; 2019-10-24)
PROC: 3E0DXGC Introduction of Other Therapeutic Substance into Mouth and Pharynx, External Approach (ICD-10-PCS; 2019-10-24)
DX: O69.81X0 Labor and delivery complicated by cord around neck, without compression, not applicable or unspecified (principal); Z37.0 Single live birth; Z3A.39 39 weeks gestation of pregnancy

== ENCOUNTER → 2020-04-12 | Outpatient (REF) | payer OTHER ==
[~2020-04-12] MED LIST changes: +BACT800T5 PO; +HYDR-3713 PO; -MONT10TA4; +MONT5TAB2
== END ==
LOC: M LAB REF 18:45 → EEVIPCON 18:45
PROVIDERS: ATTEND Physician Assistant
DX: N61.1 Abscess of the breast and nipple (principal)

== ENCOUNTER 2020-04-16 18:58 | Emergency (ER) | payer OTHER ==
[~2020-04-16] VITALS: Ht 167.6 cm; Wt 74.7 kg
[~2020-04-16 18:58] MED LIST changes: -BACT800T5 PO; -HYDR-3713 PO
--- OUTSIDE RECORDS SUMMARY | 2020-04-16 19:04 | CCD | Continuity of Care Document ---
Author Author Staci DAWKINS PA Organization Unknown [place] [address] Phone [phone] Care Team Providers Care Engine Cowling Installer Name Role Phone Annelise Thomas D.O. AUTM Camron Ndiaye M.D. AUTM [phone] Manfred Barrera M.D. AUTM [phone] Austyn Byrne LCSW AUTM [phone] Steph Jordan DO AUTM [phone] Problems Active Problems Provider Date Mild recurrent major depression MICHAEL Rubalcava Onset: 0 03/31/2018 Generalized anxiety disorder MICHAEL Rubalcava Onset: 03/17 Migraine without aura, not refractory MICHAEL Rubalcava On set: 03/31/2018 Psoriasis MICHAEL Rubalcava Onset: 12/30/2019 Gastro-esophageal reflux disease with esophagitis MICHAEL Pino Onset: 12/30/2019 Uncomplicated moderate persistent asthma MICHAEL Rubalcava Onset: 12/30/2019 Attention deficit hyperactivity disorder, predominantl y inattentive type Annelise Thomas D.O. Onset: 10/27/2018 Social History Type Date Description Comments Sex Unknown ETOH Use Currently consumes alcohol Tobacco Use Start: Unknown Patient has never smoked Recreational Drug Use Denies Drug Use Smoking Status Reviewed: 10/27/18 Patient has never smoked Exercise Type/Frequency Does not exercise Sun Exposure Does not use sunscreen Seat Belt/Car Seat Never uses seat belt Allergies, Adverse Reactions, Alerts Description No Known Drug Allergies Medications Active Medications SIG Qnty Indications Ordering Provide r Date Bactrim DS 800-160mg Tablets take one tablet by mouth every 12 hours for ten days 20tabs N61.1 Annelise Thomas D.O. 04/12/[address] 1 by mouth every day on an empty stomach. 90tabs K21.00 Raul TinajeroO. 12/30/2019 Carafate 1GM/10ML Suspension 10 milliliters by mouth every 12 hours 840ml K21.00 Annelise Johnson D.O. 12/30/2019 Adderall XR 20mg Caps ER 24HR 1 by mouth every day istop reference # [id number] 30caps F90.0 Raul Doyle.O. 12/30/2019 Singulair 10mg Tablets 1 by mouth every night 90tabs J45.40 Raul Tinajero.O. 08/31 Proair HFA 108(90Base) mcg/Act Aer osol 2 puffs inhaled every 4 hours as needed 8.500gm Raul Doyle.O. Cosentyx 300 Dose 15 0mg/ml Soln Prefill Syringe Unknown History Medications Bupropion Hydrochloride ER (XL) 150mg Tablets ER 24HR take one tablet by mouth each day. 90tabs F33.0 Raul Tinajero.O. 02/18/2020 - 04/12/2020 Effexor XR 37.5mg Caps ER 24HR 1 by mouth every day 90caps Annelise Thomas D.O. 01/30 - 02/18/2020 Immunizations CPT Code Status Date Vaccine Lot # [id number] Given 01/31/2020 Influenza Virus Vaccine, Quadrivalent, Split, Preservative Free [id number] Vital Signs Date Vital Result Comment 04/12/2020 3:42pm BP Systolic 138 mmHg BP Diastolic 87 mmHg Height 66 inches 5'6" Weight 163.00 lb BMI (Body Mass Index) 26.3 kg/m2 Heart Rate 99 /min Respiratory Rate 18 /min Body Temperature 99.8 F O2 % BldC Oximetry 121 % [place] Body Weight 130 lb 02/18/2020 1:40pm BP Systolic 122 mmHg BP Diastolic 64 mmHg Height 66 inches 5'6" Weight 164.00 lb BMI (Body Mass Index) 26.5 kg/m2 Heart Rate 103 /min Respiratory Rate 18 /min Body Temperature 98.9 F O2 % BldC Oximetry 96 % [place]ach Body Weight 130 lb Results Test Acquired Date Facility Test Result H/L Range Note Laboratory test finding 04/12/[address] [address] [phone] Wound Culture FULL REPORT IN L <SEE NOTE> Normal 1 1 FULL REPORT IN LAB NOTES (eC W and [facility]). ORGANISM 1: STAPH.AUREUS METHICILLIN RESIS QUANTITY OF GROWTH MODERATE ORGANISM 1: STAPH.AUREUS METHICILLIN RESIS STAPH.AUREUS METHICILLIN RESIS: REACTION ICR (INDUCIBLE CC RESISTANCE) IV ICR TEST RESULT TETRACYCLINE PO 250 mg qid <=1 S PENICILLIN G IV 1 mu q6H >=0.5 R PENICILLIN G IV 1 mu q6h >=0.5 R PENICILLIN G PO 250mg q6h fasting >=0.5 R TRIMETHOPRIM/SULFAMETHOXAZOLE IV 160mg TMP & 800mg SMXq6h <=10 S TRIMETHOPRIM/SULFAMETHOXAZOLE PO Bactrim DS Bid <=10 S ERYTHROMYCIN IV 500mg q6h >=8 R ERYTHROMYCIN PO 500mg q6h >=8 R GENTAMICIN IV 80mg q8h <=0.5 S CLINDAMYCIN IV 600mg q6h 0.25 S CLINDAMYCIN PO 150mg q6h 0.25 S OXACILLIN IV 500mg q6h >=4 R VANCOMYCIN IV 500mg q8h 1 S LINEZOLID (ZYVOX) IV 600MG Q12HR 2 S LINEZOLID (ZYVOX) PO 600MG Q12HR 2 S An isolate with a (+) POSITIVE ICR test is considered CLINDAMYCIN RESISTANT; however, clindamycin may still be effective in some patients. An isolate with a (-) NEGATIVE ICR test is considered CLIDAMYCIN SENSITIVE. Procedures Description No Information Available Medical Devices Description No Information Available Encounters Type Date Location Provider Dx Diagnosis Office Visit 04/12/2020 3:30p [facility] MICHAEL Edouard N61.1 Abscess of the breast and ni pple Office Visit 02/18/2020 1:40p [facility] MICHAEL Rubalcava 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, predom inattentive type F41.1 Generalized anxiety disorder F33.0 Major depressive disorder, r ecurrent, mild Office Visit 01/31/2020 1:30p [facility] MICHAEL Rubalcava 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, predom inattentive type K21.00 Gastro-esophageal reflux dis with esophagitis, without bleed J45.40 Moderate persistent asthma, uncomplicated L40.9 Psoriasis, unspecified Z79.899 Other shelter (current) dr eason therapy 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, right ear Z23 Encounter for immunization F41.1 Generalized anxiety disorder Office Visit 12/30/2019 1:00p [facility] MICHAEL Rubalcava 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, predom inattentive type F33.0 Major depressive disorder, r ecurrent, mild K21.00 Gastro-esophageal reflux dis with esophagitis, without bleed J45.40 Moderate persistent asthma, uncomplicated Z79.899 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 (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) dr eason therapy 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, right ear L40.9 Psoriasis, unspecified Assessments Date Code Description Provider 04/12/2020 N61.1 Abscess of the breast and nipple MICHAEL Rubalcava 02/18/2020 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, predominantly inattentive type MICHAEL Rubalcava 02/18/2020 F41.1 Generalized anxiety disorder Babak MICHAEL Hernandez 02/18/2020 F33.0 Major depressive disorder, recur rent, mild MICHAEL Rubalcava 01/31/2020 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, predominantly inattentive type MICHAEL Rubalcava 01/31/2020 K21.00 Gastro-esophageal re flux disease with esophagitis, without bleeding MICHAEL Rubalcava 01/31/2020 J45.40 Moderate persistent asthma, unco mplicated MICHAEL Rubalcava 01/31/2020 L40.9 Psoriasis MICHAEL Rubalcava 01/31/2020 Z79.899 Other shelter (current) drug t herapy MICHAEL Rubalcava 01/31/2020 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, right ear MICHAEL Rubalcava 01/31/2020 Z23 Encounter for immunization Ben MICHAEL Tapia 01/31/2020 F41.1 Generalized anxiety disorder MICHAEL Lira 12/30/2019 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, predominantly inattentive type MICHAEL Rubalcava 12/30/2019 F33.0 Major depressive disorder, recur rent, mild MICHAEL Rubalcava 12/30/2019 K21.00 Gastro-esophageal re flux disease with esophagitis, without bleeding MICHAEL Rubalcava 12/30/2019 J45.40 Moderate persistent asthma, unco mplicated MICHAEL Rubalcava 12/30/2019 Z79.899 Other shelter (current) drug t herapy MICHAEL Rubalcava 12/30/2019 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, right ear MICHAEL Rubalcava 12/30/2019 L40.9 Psoriasis MICHAEL Rubalcava Plan of Treatment 04/12/2020 - MICHAEL Rubalcava* N61.1 Abscess of the breast and nipple* New Medication:* Bactrim DS 800-160 mg - take one tablet by mouth every 12 hours for ten days * Comments:* Continue to apply warm compresses over each breast. We will change antibiotic to Bactrim. We will do an ultrasound to evaluate for abscess. Functional Status Description No Information Available Mental Status Description No Information Available Referrals Refer to Reason for Referral Status Appt Date Steph JordanMesfin Staci had a bilateral emilia st piercing last year and is currently 5 months post . She has been having a discharge from the left nipple piercing for the past several days. She also has a large palpable lump without erythema to the soft tissue of the right breast and clinically suspect abscess without drainage. She has been on Keflex and not switched to Bactrim. Ultrasound of each breast done at [facility] on 04/12/20 and showed a 1 cm x 1 cm superficiale abscess of left nipple and a larger collection of the right breast at the 6 o'clock margin. please evaluate for drainage of suspected abscess. Sent [address] [place] [address] [phone] Austyn Byrne LCSW Staci is a dependen t and having marital issues and problems potentially with custody of her children. She is interested in counseling to help with depression and anxiety Sent [address] [facility] [address] [place] [address] [phone] Camron Ndiaye M.D. Staci has chronic reflux and has required high dose PPI for several years with recently having problems with swallowing with a sensation of food getting stuck in her throat. Closed [address] [facility] [address] [place] [address] [phone] Manfred Barrera M.D. Staci has a right TM perfora tion since child otero and would like to have it repaired Closed 01/18/2020 [facility] [address] [facility] [address], [address] [place] [address] [phone]
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
--- OUTSIDE RECORDS SUMMARY | 2020-04-16 19:04 | CCD | Continuity of Care Document ---
Author Author Staci DAWKINS PA Organization [place] [address] Phone [phone] Care Team Providers Care Internal Security Manager Name Role Phone Annelise Thomas D.O. AUTM [phone] Camron Ndiaye M.D. AUTM [phone] Manfred Barrera M.D. AUTM [phone] Austyn Byrne LCSW AUTM [phone] Problems Active Problems Provider Date Mild recurrent [...] SIG Qnty Indications Ordering Provide r Date Bupropion Hydrochloride ER (XL) 150mg Tablets ER 24HR take one tablet by mouth each day. 90tabs F33.0 Isidro TinajeroOMesfin 02/18/[address] 1 by mouth every day on an empty stomach. 90tabs K21.00 Raul TinajeroOMesfin 12/30/2019 Carafate 1GM/10ML Suspension 10 milliliters by mouth every 12 hours 840ml K21.00 Isidro AlvaradoOMesfin 12/30/2019 Adderall XR 20mg Caps ER 24HR 1 by mouth every day istop reference # [id number] 30caps F90.0 Isidro DoyleOMesfin 12/30/2019 Singulair 10mg Tablets 1 by mouth every night 90tabs J45.40 Isidro TinajeroO. 08/31 Advair HFA 115-21mcg/Act Aerosol 2 puffs inhaled twice a day rinse mouth with water after use 8gm J45.40 Isidro BarakatO. 05/29/2018 Proair HFA 108(90Base) mcg/Act Aer osol 2 puffs inhaled every 4 hours as needed 8.500gm Isidro DoyleO. Cosentyx 300 Dose 15 0mg/ml Soln Prefill Syringe Unknown History Medications Effexor XR 37.5mg Caps ER 24HR 1 by mouth every day 90caps Isidro TinajeroO. 01/30 - 02/18/2020 Immunizations CPT Code Status Date Vaccine Lot # [id number] Given 01/31/2020 Influenza Virus Vaccine, Quadrivalent, Split, Preservative Free [id number] Vital Signs Date Vital Result Comment 02/18/2020 1:40pm BP Systolic 122 mmHg BP Diastolic 64 mmHg Height 66 inches 5'6" Weight 164.00 lb BMI (Body Mass Index) 26.5 kg/m2 Heart Rate 103 /min Respiratory Rate 18 /min Body Temperature 98.9 F O2 % BldC Oximetry 96 % [place] Body Weight 130 lb 01/31/2020 1:30pm BP Systolic 112 mmHg BP Diastolic 70 mmHg Height 66 inches 5'6" Weight 166.38 lb BMI (Body Mass Index) 26.9 kg/m2 Heart Rate 99 /min Respiratory Rate 18 /min Body Temperature 99.0 F O2 % BldC Oximetry 99 % [place] Body Weight 130 lb Results Description No Information Available Procedures Description No Information Available Medical Devices Description No Information Available Encounters Type Date Location Provider Dx Diagnosis Office Visit 02/18/2020 1:40p [facility] MICHAEL Rubalcava 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, predom inattentive type F41.1 Generalized anxiety disorder F33.0 Major depressive disorder, r ecurrent, mild Office Visit 01/31/2020 1:30p [facility] MICHAEL Rubalcava 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, predom inattentive type K21.00 Gastro-esophageal reflux dis with esophagitis, without bleed J45.40 Moderate persistent asthma, uncomplicated L40.9 Psoriasis, unspecified Z79.899 Other half-way (current) dr eason therapy 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, right ear Z23 Encounter for immunization F41.1 Generalized anxiety disorder Office Visit 12/30/2019 1:00p [facility] MICHAEL Rubalcava 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, predom inattentive type F33.0 Major depressive disorder, r ecurrent, mild K21.00 Gastro-esophageal reflux dis with esophagitis, without bleed J45.40 Moderate persistent asthma, uncomplicated Z79.899 Other half-way (current) dr eason therapy 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, right ear L40.9 Psoriasis, unspecified Assessments Date Code Description Provider 02/18/2020 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899 Other half-way (current) drug t herapy MICHAEL Rubalcava 01/31/2020 [...] unco mplicated MICHAEL Rubalcava 12/30/2019 Z79.899 Other half-way (current) drug t herapy MICHAEL Rubalcava 12/30/2019 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 * F41.1 Generalized anxiety disorder* Comments:* Previously tried and failed Prozac, Celexa, Effexor, and Zoloft but not tolerated or effective * F33.0 Major depressive disorder, recurrent, mild* New Medication:* Bupropion Hydrochloride ER (XL) 150 mg - take one tablet by mouth each day. * Comments:* Referral placed for Austyn Byrne to establish a counselor. We will prescribe Wellbutrin to help with your current symptoms and stressors. * Referral:* Austyn Byrne LCSW, Functional Status Description No Information Available Mental Status Description No Information Available Referrals Refer to Reason for Referral Status Appt Date Austyn Byrne LCSW Staci is a dependen t and having marital issues and problems potentially with custody of her children. She is interested in counseling to help with depression and anxiety Sent [address] [place] [address] [phone] Camron Ndiaye M.D. Staci has chronic reflux and has required high dose PPI for several years with recently having problems with swallowing with a sensation of food getting stuck in her throat. Closed [address] [place] [address] [phone] Manfred Barrera M.D. Staci has a right TM perfora tion since child o[age]o and would like to have it repaired Closed 01/18/2020 [facility] [address], [address] [place] [address] [phone]
--- OUTSIDE RECORDS SUMMARY | 2020-04-16 19:04 | CCD | Continuity of Care Document ---
Author Author Staci DAWKINS PA Organization [place] [address] Phone [phone] Care Team Providers Care Java Jsf Developer Name Role Phone Annelise Thomas D.O. AUTM [phone] Camron Ndiaye M.D. AUTM [phone] Manfred Barrera M.D. AUTM [phone] Problems Active Problems Provider Date Mild recurrent [...] SIG Qnty Indications Ordering Provide r Date Effexor XR 37.5mg Caps ER 24HR 1 by mouth every day 90caps Annelise Thomas D.OMesfin 01/[address] 1 by mouth every day on an empty stomach. 90tabs K21.00 Raul Tinajero 12/30/2019 Carafate 1GM/10ML Suspension 10 milliliters by mouth every 12 hours 840ml K21.00 Isidro AlvaradoOMesfin 12/30/2019 Adderall XR 20mg Caps ER 24HR 1 by mouth every day istop reference # [id number] 30caps F90.0 Isidro DoyleOMesfin 12/30/2019 Singulair 10mg Tablets 1 by mouth every night 90tabs J45.40 Isidro TinajeroOMesfin 08/31 Advair HFA 115-21mcg/Act Aerosol 2 puffs inhaled twice a day rinse mouth with water after use 8gm J45.40 Isidro BarakatOMesfin 05/29/2018 Proair HFA 108(90Base) mcg/Act Aer osol 2 puffs inhaled every 4 hours as needed 8.500gm Isidro DoyleOMesfin Cosentyx 300 Dose 15 0mg/ml Soln Prefill Syringe Unknown Immunizations CPT Code Status Date Vaccine Lot # [id number] Given 01/31/2020 Influenza Virus Vaccine, Quadrivalent, Split, Preservative Free [id number] Vital Signs Date Vital Result Comment 01/31/2020 1:30pm BP Systolic 112 mmHg BP Diastolic 70 mmHg Height 66 inches 5'6" Weight 166.38 lb BMI (Body Mass Index) 26.9 kg/m2 Heart Rate 99 /min Respiratory Rate 18 /min Body Temperature 99.0 F O2 % BldC Oximetry 99 % [place] Body Weight 130 lb 12/30/2019 1:00pm BP Systolic 114 mmHg BP Diastolic 68 mmHg Height 66 inches 5'6" Weight 158.38 lb BMI (Body Mass Index) 25.6 kg/m2 Heart Rate 66 /min Respiratory Rate 18 /min Body Temperature 99.1 F O2 % BldC Oximetry 97 % [place] Body Weight 130 lb Results Description No Information Available Procedures Description No Information Available Medical Devices Description No Information Available Encounters Type Date Location Provider Dx Diagnosis Office Visit 12/30/2019 1:00p [facility] MICHAEL Rubalcava 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, predom inattentive type F33.0 Major depressive disorder, r ecurrent, mild K21.00 Gastro-esophageal reflux dis with esophagitis, without bleed J45.40 Moderate persistent asthma, uncomplicated Z79.899 Other intermodal dispatcher (current) dr jenaro ding 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, right ear L40.9 Psoriasis, unspecified Assessments Date Code Description Provider 01/31/2020 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, predominantly inattentive type MICHAEL Rubalcava 01/31/2020 F33.0 Major depressive disorder, recur rent, mild MICHAEL Rubalcava 01/31/2020 K21.00 Gastro-esophageal re flux disease with esophagitis, without bleeding MICHAEL Rubalcava 01/31/2020 J45.40 Moderate persistent asthma, unco mplicated MICHAEL Rubalcava 01/31/2020 L40.9 Psoriasis MICHAEL Rubalcava 01/31/2020 Z79.899 Other intermodal dispatcher (current) drug t herapy MICHAEL Rubalcava 01/31/2020 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, right ear MICHAEL Rubalcava 01/31/2020 Z23 Encounter for immunization MICHAEL Maza 12/30/2019 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, predominantly inattentive type MICHAEL Rubalcava 12/30/2019 F33.0 Major depressive disorder, recur rent, mild MICHAEL Rubalcava 12/30/2019 K21.00 Gastro-esophageal re flux disease with esophagitis, without bleeding MICHAEL Rubalcava 12/30/2019 J45.40 Moderate persistent asthma, unco mplicated MICHAEL Rubalcava 12/30/2019 Z79.899 Other long-term (current) drug t herapy MICHAEL Rubalcava 12/30/2019 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 * J45.40 Moderate persistent asthma, uncomplicated * L40.9 Psoriasis* Comments:* Controlled well with Cosentyx. * Z79.899 Other long-term (current) drug therapy * 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, right ear * Z23 Encounter for immunization Functional Status Description No Information Available Mental Status Description No Information Available Referrals Refer to Reason for Referral Status Appt Date Manfred Barrera M.DMesfin Small has a right TM perfora tion since child otero and would like to have it repaired Patient Notified 01/18/2020 [facility] [address], [address] [place], [place] [address] [phone] Camron Ndiaye M.DMesfin Small has chronic reflux and has required high dose PPI for several years with recently having problems with swallowing with a sensation of food getting stuck in her throat. Closed [address] [place] [address] [phone]
--- OUTSIDE RECORDS SUMMARY | 2020-04-16 19:04 | CCD | Continuity of Care Document ---
Author Author Staci DAWKINS PA Organization [place] [address] Phone [phone] Care Team Providers Care Administration Specialist Name Role Phone Annelise Thomas D.O. AUTM [phone] Camron Ndiaye M.D. AUTM [phone] Manfred Barrera M.D. AUTM [phone] Problems Active Problems Provider Date Mild recurrent major depression MICHAEL Rubalcava Onset: 0 03/31/2018 Generalized anxiety disorder MICHAEL Rubalcava Onset: 03/17 Migraine without aura, not refractory MICHAEL Rubalcaav On set: 03/31/2018 Psoriasis MICHAEL Rubalcava Onset: [...] by mouth each day. 90tabs F33.0 Isidro TinajeroO. 02/18/[address] 1 by mouth every day on an empty stomach. 90tabs K21.00 Raul TinajeroO. 12/30/2019 Carafate 1GM/10ML Suspension 10 milliliters by mouth every 12 hours 840ml K21.00 Isidro AlvaradoOMesfin 12/30/2019 Adderall XR 20mg Caps ER 24HR 1 by mouth every day istop reference # [id number] 30caps F90.0 Raul Doyle.O. 12/30/2019 Singulair 10mg Tablets 1 by mouth every night 90tabs J45.40 Raul Tinajero.O. 08/31 Advair HFA 115-21mcg/Act Aerosol 2 puffs [...] CPT Code Status Date Vaccine Lot # [id number] Given 01/31/2020 Influenza Virus Vaccine, Quadrivalent, Split, Preservative Free [id number] Vital Signs Date Vital Result Comment 02/18/2020 1:40pm BP Systolic 122 mmHg BP Diastolic 64 mmHg Height 66 inches 5'6" Weight 164.00 lb BMI (Body Mass Index) 26.5 kg/m2 Heart Rate 103 /min Respiratory Rate 18 /min Body Temperature 98.9 F O2 % BldC Oximetry 96 % [place] Body Weight 130 lb 01/31/2020 1:30pm BP Systolic 112 mmHg BP Diastolic 70 mmHg Height 66 inches 5'6" Weight 166.38 lb BMI (Body Mass Index) 26.9 kg/m2 Heart Rate 99 /min Respiratory Rate 18 /min Body Temperature 99.0 F O2 % BldC Oximetry 99 % [place] Body Weight 130 lb Results Description No Information Available Procedures Description No Information Available Medical Devices Description No Information Available Encounters Type Date Location Provider Dx Diagnosis Office Visit 01/31/2020 1:30p [facility] MICHAEL Rubalcava 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, predom inattentive type K21.00 Gastro-esophageal reflux dis with esophagitis, without bleed J45.40 Moderate persistent asthma, uncomplicated L40.9 Psoriasis, unspecified Z79.899 Other custodial (current) dr eason therapy 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, right ear Z23 Encounter for immunization F41.1 Generalized anxiety disorder Office Visit 12/30/2019 1:00p [facility] MICHAEL Rubalcava 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, predom inattentive type F33.0 Major depressive disorder, r ecurrent, mild K21.00 Gastro-esophageal reflux dis with esophagitis, without bleed J45.40 Moderate persistent asthma, uncomplicated Z79.899 Other vermin exterminator (current) dr eason therapy H72.01 Central perforation [...] L40.9 Psoriasis MICHAEL Rubalcava 01/31/2020 Z79.899 Other vermin exterminator (current) drug t herapy MICHAEL Rubalcava 01/31/2020 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, right ear MICHAEL Rubalcava 01/31/2020 Z23 Encounter for immunization eBn MICHAEL Tapia 01/31/2020 F41.1 Generalized anxiety disorder [facility] MICHAEL Hernandez 12/30/2019 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, predominantly inattentive type MICHAEL Rubalcava 12/30/2019 F33.0 Major depressive disorder, recur rent, mild MICHAEL Rubalcava 12/30/2019 K21.00 Gastro-esophageal re flux disease with esophagitis, without bleeding MICHAEL Rubalcava 12/30/2019 J45.40 Moderate persistent asthma, unco mplicated MICHAEL Rubalcava 12/30/2019 Z79.899 Other vermin exterminator (current) drug t herapy MICHAEL Rubalcava 12/30/2019 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 Staci has chronic reflux and has required high dose PPI for several years with recently having problems with swallowing with a sensation of food getting stuck in her throat. Closed [address] [facility] [address] [place] [address] [phone] Manfred Barrera M.D. Staci has a right TM perfora tion since child otero and would like to have it repaired Closed 01/18/2020 [facility] [address], [address] [place], [place] [id number] [phone]
--- OUTSIDE RECORDS SUMMARY | 2020-04-16 19:04 | CCD ---
Author Author [facility] Organization [facility] Address Unknown Phone Unavailable Care Team Providers Care Circulation Clerk Name Role Phone DwayneZev andersonlette Unavailable PROBLEMS Type Condition ICD9-CM Code BZA21-MN Code Onset Dates Condition S tatus SNOMED Code Notes Problem Allergic rhinitis J30.9 Active 00600354 Problem Anxiety F41.9 Active 81034488 Problem Exacerbation of asthma, unsp ecified asthma severity, unspecified whether persistent J45.901 Active 820278048 Problem Supervision of other normal Z34.80 Ac tive 226248246 ALLERGIES Allergen (clinical drug ingredient) Drug/Non Drug Allergy do cumented on EMR Reaction Allergy Type Onset Date Status aspirin Aspirin([facility] Code:[address]-05) Unknown Drug Allergy Active ENCOUNTERS from 1987 to 2020-02-26 Encounter Location Date Provider Diagnosis [facility] [address] [place] [id number] Feb, Angelique Rodriguez Encounter for Dep o-Provera contraception Z30.42 IMMUNIZATIONS Vaccine Route Administration Date Status RHo (D) Immune Globulin 300mcg/1.5mL (RhoGAM) IM Intramuscular J 2019 Administered Depo-Provera 150mg/1mL (Medroxy-Progestrone Acetate) IM Intr amuscular Feb 25, 2020 Administered SOCIAL HISTORY Tobacco Use: Social History Observation Description Date Details (start date - stop date) Never Smoker Sex Assigned At : Social History Observation Description Sex Assigned At Unknown Language: Question Answer Notes Languages spoken: Romansh Domestic Violence: Question Answer Notes Status: History [...] for 90 day s Mar, Active PROCEDURES from 1987 to 2020-02-26 Procedure Date Ordered Result Body Site Medication: Depo-Provera 150mg/1mL IM (Medroxyprogesterone A cetate) 2020-02-25 N/A RESULTS No Results REASON FOR VISIT DEPO SHOT MEDICAL (GENERAL) HISTORY Type Description Date Medical History psoriasis Medical History PTSD Medical History manic depression Medical History seasonal allergies Surgical History D&C Surgical History T & A Hospitalization History childbirth Goals Section No Information Health Concerns No Information MEDICAL EQUIPMENT No Information MENTAL STATUS No Information FUNCTIONAL STATUS No Information ASSESSMENTS Encounter Date Diagnosis Assessment Notes Treatment Notes Treatm ent Clinical Notes Feb, Encounter for Depo-Provera contraception (ICD-10 - Z30.42) PLAN OF TREATMENT Next Appt Details Depo Provera 05/12/20-05/26/20 Reason: Provider Name:Angelique Arteaganisa, 2020-05-12 10:00:00 AM, [address] [place], [address], Insurance Providers Payer Name Payer Address Payer Phone Insured Name Patient Relati onship to Insured Coverage Start Date Coverage End Date [facility] [employer] [address] [place] [id number] [employer] [place]
--- OUTSIDE RECORDS SUMMARY | 2020-04-16 19:04 | CCD | Continuity of Care Document ---
Author Author Staci DAWKINS PA Organization [place] [address] Phone [phone] Care Team Providers Care Social Media Job Titles Name Role Phone Annelise Thomsa D.O. AUTM [phone] Camron Ndiaye M.D. AUTM [phone] Manfred Barrera M.D. AUTM [phone] Austyn Byrne LCSW AUTM [phone] Problems Active Problems Provider Date Mild recurrent [...] 12 hours for ten days 20tabs N61.1 Raul Tinajero.O. 04/12/[address] 1 by mouth every day on an empty stomach. 90tabs K21.00 Raul TinajeroO. 12/30/2019 Carafate 1GM/10ML Suspension 10 milliliters by mouth every 12 hours 840ml K21.00 Isdiro AlvaradoOMesfin 12/30/2019 Adderall XR 20mg Caps ER 24HR 1 by mouth every day istop reference # [id number] 30caps F90.0 Isidro DoyleO. 12/30/2019 Singulair 10mg Tablets 1 by mouth [...] CPT Code Status Date Vaccine Lot # [id number] Given 01/31/2020 Influenza Virus Vaccine, Quadrivalent, Split, Preservative Free [id number] Vital Signs Date Vital Result Comment 04/12/2020 3:42pm BP Systolic 138 mmHg BP Diastolic 87 mmHg Height 66 inches 5'6" Weight 163.00 lb BMI (Body Mass Index) 26.3 kg/m2 Heart Rate 99 /min Respiratory Rate 18 /min Body Temperature 99.8 F O2 % BldC Oximetry 121 % [place] Body Weight 130 lb 02/18/2020 1:40pm BP Systolic 122 mmHg BP Diastolic 64 mmHg Height 66 inches 5'6" Weight 164.00 lb BMI (Body Mass Index) 26.5 kg/m2 Heart Rate 103 /min Respiratory Rate 18 /min Body Temperature 98.9 F O2 % BldC Oximetry 96 % [place] Body Weight 130 lb Results Description No Information Available Procedures Description No Information Available Medical Devices Description No Information Available Encounters Type Date Location Provider Dx Diagnosis Office Visit 02/18/2020 1:40p [facility] MICHAEL Rubalcava 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, predom inattentive type F41.1 Generalized anxiety disorder F33.0 Major depressive disorder, r ecurrent, mild Office Visit 01/31/2020 1:30p [facility] MICHAEL Rubalcava 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, predom inattentive type K21.00 Gastro-esophageal reflux dis with esophagitis, without bleed J45.40 Moderate persistent asthma, uncomplicated L40.9 Psoriasis, unspecified 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.899 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, right ear Z23 Encounter for immunization F41.1 Generalized anxiety disorder Office Visit 12/30/2019 1:00p [facility] MICHAEL Rubalcava 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, predom inattentive type F33.0 Major depressive disorder, r ecurrent, mild K21.00 Gastro-esophageal reflux dis with esophagitis, without bleed J45.40 Moderate persistent asthma, uncomplicated Z79.899 Other retirement (current) dr jenaro ding H72.01 Central perforation [...] L40.9 Psoriasis MICHAEL Rubalcava 01/31/2020 Z79.899 Other retirement (current) drug t herapy MICHAEL Rubalcava 01/31/2020 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, right ear MICHAEL Rubalcava 01/31/2020 Z23 Encounter for immunization MICHAEL Maza 01/31/2020 F41.1 Generalized anxiety disorder MICHAEL Lira 12/30/2019 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, predominantly inattentive type MICHAEL Rubalcava 12/30/2019 F33.0 Major depressive disorder, recur rent, mild MICHAEL Rubalcava 12/30/2019 K21.00 Gastro-esophageal re flux disease with esophagitis, without bleeding MICHAEL Rubalcava 12/30/2019 J45.40 Moderate persistent asthma, unco mplicated MICHAEL Rubalcava 12/30/2019 Z79.899 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 MICHAEL Rubalcava 12/30/2019 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, right ear MICHAEL Rubalcava 12/30/2019 L40.9 Psoriasis MICHAEL Rubalcava Plan of Treatment 04/12/2020 - MICHAEL Rubalcava* N61.1 Abscess of the breast and nipple* New Medication:* Bactrim DS 800-160 mg - take one tablet by mouth every 12 hours for ten days * New Xrays:* Ultrasound Breast Bilateral, Ordered: 04/12/20 Functional Status Description No Information Available Mental Status Description No Information Available Referrals Refer to Reason for Referral Status Appt Date Austyn Byrne LCSW Staci is a dependen t and having marital issues and problems potentially with custody of her children. She is interested in counseling to help with depression and anxiety Sent [address] [place] [address] [phone] Camron Ndiaye M.D. Staci has chronic reflux and has required high dose PPI for several years with recently having problems with swallowing with a sensation of food getting stuck in her throat. Closed [address] [place] [address] [phone] Manfred Barrera M.D. Staci has a right TM perfora tion since child o[age]o and would like to have it repaired Closed 01/18/2020 [facility] [address], [address] [place], [place] [address] [phone]
--- OUTSIDE RECORDS SUMMARY | 2020-04-16 19:04 | CCD | Continuity of Care Document ---
Author Author Staci DAWKINS PA Organization Unknown [place] [address] Phone [phone] Care Team Providers Care Research Associate Molecular Biology Name Role Phone Annelise Thomas D.O. AUTM Camron Ndiaye M.D. AUTM [phone] Manfred Barrera M.D. AUTM [phone] Problems Active Problems Provider Date Mild recurrent major depression MICHAEL Ruablcava Onset: 0 03/31/2018 Generalized anxiety disorder MICHAEL [...] by mouth every day istop reference # [id number] 30caps F90.0 Isidro DoyleOMesfin 12/30/2019 Singulair 10mg [...] CPT Code Status Date Vaccine Lot # [id number] Given 01/31/2020 Influenza Virus Vaccine, Quadrivalent, Split, Preservative Free [id number] Vital Signs Date Vital Result Comment 01/31/2020 1:30pm BP Systolic 112 mmHg BP Diastolic 70 mmHg Height 66 inches 5'6" Weight 166.38 lb BMI (Body Mass Index) 26.9 kg/m2 Heart Rate 99 /min Respiratory Rate 18 /min Body Temperature 99.0 F O2 % BldC Oximetry 99 % [place] Body Weight 130 lb 12/30/2019 1:00pm BP Systolic 114 mmHg BP Diastolic 68 mmHg Height 66 inches 5'6" Weight 158.38 lb BMI (Body Mass Index) 25.6 kg/m2 Heart Rate 66 /min Respiratory Rate 18 /min Body Temperature 99.1 F O2 % BldC Oximetry 97 % [place] Body Weight 130 lb Results Description No Information Available Procedures Description No Information Available Medical Devices Description No Information Available Encounters Type Date Location Provider Dx Diagnosis Office Visit 01/31/2020 1:30p [facility] MICHAEL Rubalcava 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, predom inattentive type K21.00 Gastro-esophageal reflux dis with esophagitis, without bleed J45.40 Moderate persistent asthma, uncomplicated L40.9 Psoriasis, unspecified Z79.899 Other watermaster (current) dr eason therapy 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, right ear Z23 Encounter for immunization F41.1 Generalized anxiety disorder Office Visit 12/30/2019 1:00p [facility] MICHAEL Rubalcava 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, predom inattentive type F33.0 Major depressive disorder, r ecurrent, mild K21.00 Gastro-esophageal reflux dis with esophagitis, without bleed J45.40 Moderate persistent asthma, uncomplicated Z79.899 Other watermaster (current) dr eason therapy 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, right ear L40.9 Psoriasis, unspecified Assessments Date Code Description Provider 01/31/2020 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, predominantly inattentive type MICHAEL Rubalcava 01/31/2020 K21.00 Gastro-esophageal re flux disease with esophagitis, without bleeding MICHAEL Rubalcava 01/31/2020 J45.40 Moderate persistent asthma, unco mplicated MICHAEL Rubalcava 01/31/2020 L40.9 Psoriasis MICHAEL Rubalcava 01/31/2020 Z79.899 Other watermaster (current) drug t herapy MICHAEL Rubalcava 01/31/2020 [...] unco mplicated MICHAEL Rubalcava 12/30/2019 Z79.899 [facility] drug [facility] MICHAEL Rubalcava 12/30/2019 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, right ear MICHAEL Rubalcava 12/30/2019 L40.9 Psoriasis MICHAEL Rubalcava Plan of Treatment Future Appointment(s):* 04/03/2020 1:15 pm - MICHAEL Rubalcava at [facility] Functional Status Description No Information Available Mental Status Description No Information Available Referrals Refer to Dr Reason for Referral Status Appt Date Manfred Barrera M.DMesfin Small has a right TM perfora tion since child o[age]o and would like to have it repaired Patient Notified 01/18/2020 [facility] [address], [address] [place], [place] [id number] [phone] Camron Ndiaye M.DMesfin Small has chronic reflux and has required high dose PPI for several years with recently having problems with swallowing with a sensation of food getting stuck in her throat. Closed [address] [place], [place] [id number] [phone]
--- OUTSIDE RECORDS SUMMARY | 2020-04-16 19:05 | CCD ---
Author Author [facility] Organization [facility] Address Unknown Phone Unavailable Care Team Providers Care Charter Driver Name Role Phone NON-STAFF, PHYSICIAN Unavailable Unavailable [place], [place] Unavailable Unavailable O'denice, A [place] PA Unavailable Unavailable O'denice, A [place] PA Unavailable Unavailable O'denice, A [place] PA Unavailable Unavailable O'denice, A [place] PA Unavailable Unavailable O'denice, A [place] PA Unavailable Unavailable O'denice, A [place] PA Unavailable Unavailable O'denice, A [place] PA Unavailable Unavailable O'denice, A [place] PA Unavailable Unavailable O'denice, A [place] PA Unavailable Unavailable O'denice, A [place] PA Unavailable Unavailable O'denice, A [place] PA Unavailable Unavailable O'denice, A [place] PA Unavailable Unavailable O'denice, A [place] PA Unavailable Unavailable O'denice, A [place] PA Unavailable Unavailable O'denice, A [place] PA Unavailable Unavailable O'denice, A [place] PA Unavailable Unavailable O'denice, A [place] PA Unavailable Unavailable O'denice, A [place] PA Unavailable Unavailable O'denice, A [place] PA Unavailable Unavailable O'denice, A [place] PA Unavailable Unavailable O'denice, A [place] PA Unavailable Unavailable O'denice, A [place] PA Unavailable Unavailable O'denice, A [place] PA Unavailable Unavailable O'denice, A [place] PA Unavailable Unavailable O'denice, A [place] PA Unavailable Unavailable O'denice, A [place] PA Unavailable Unavailable O'denice, A [place] PA Unavailable Unavailable O'denice, A [place] PA Unavailable Unavailable O'denice, A Yk PA Unavailable Unavailable O'denice, A [place] PA Unavailable Unavailable O'denice, A [place] PA Unavailable Unavailable O'denice, A [place] PA Unavailable Unavailable Re-disclosure Warning The records that you are about to access may contain information from federally-assisted alcohol or drug abuse programs. If such information is present, then the following federally mandated warning applies: This information has been disclosed to you from records protected by federal confidentiality rules (42 CFR part 2). The federal rules prohibit you from making any further disclosure of this information unless further disclosure is expressly permitted by the written consent of the person to whom it pertains or as otherwise permitted by 42 CFR part 2. A general authorization for the release of medical or other information is NOT sufficient for this purpose. The Federal rules restrict any use of the information to criminally investigate or prosecute any alcohol or drug abuse patient.The records that you are about to access may contain highly sensitive health information, the redisclosure of which is protected by Article 27-F of the [place] Public Health law. If you continue you may have access to information: Regarding HIV / AIDS; Provided by facilities licensed or operated by the [place] Office of Mental Health; or Provided by the [place] Office for People With Developmental Disabilities. If such information is present, then the following [place] mandated warning applies: This information has been disclosed to you from confidential records which are protected by state law. State law prohibits you from making any further disclosure of this information without the specific written consent of the person to whom it pertains, or as otherwise permitted by law. Any unauthorized further disclosure in violation of state law may result in a fine or long-term sentence or both. A general authorization for the release of medical or other information is NOT sufficient authorization for further disc losure. Allergies and Adverse Reactions Type Description Substance Reaction Status Data Source(s ) aspirin Aspirin Aspirin Unknown Active eCW1 ([facility]) Family History Family Member Name Family Member Gender Family Member Status Date o f Status Description Data Source(s) Unknown Female Problem MEDENT ([facility]) Unknown Male Problem MEDENT ([facility]) Unknown Unknown Problem MEDENT [facility] Encounters Encounter Providers Location Date Indications Data Source(s ) Unknown [address] [facility] [address] 04/13/2020 12:00:00 AM EST eCW1 ([facility]) Outpatient Attender: [place] Taylorant: PHYSICIAN NO N-STAFF 04/12/2020 04:52:00 PM EST - 04/12/2020 05:52:00 PM EST [facility] Outpatient Attender: yK RODRIGUEZ [facility] 04/12/2020 02:30:00 PM EST MEDENT ([facility]) ( [place]) [facility] Nurse Visit [address] [place] [address] 02/25/2020 12:00:00 AM EST eCW1 ([facility]) Outpatient Attender: Ky RODRIGUEZ [facility] 02/18/2020 12:40:00 PM EST MEDENT ([facility]) Outpatient Attender: Ky RODRIGUEZ [facility] 01/31/2020 12:30:00 PM EST MEDENT ([facility]) Outpatient Attender: Ky RODRIGUEZ [facility] 12/30/2019 01:00:00 PM EDT MEDENT ([facility]) ( ESTOB) [facility] Est OB [address] [place] [address] 10/01/2019 12:00:00 AM EDT eCW1 ([facility]) Unknown [address] [facility] [address] 09/30/2019 12:00:00 AM EDT eCW1 ([facility]) ( ESTOB) [facility] [address] [place] [address] 09/23/2019 12:00:00 AM EDT eCW1 ([facility]) ( ESTOB) [facility] [address] [place] [address] 09/08/2019 12:00:00 AM EDT eCW1 ([facility]) [facility] [address] [place] [address] 08/26/2019 12:00:00 AM EDT eCW1 ([facility]) (WC ESTOB) [facility] Est OB [address] [place] [address] 08/25/2019 12:00:00 AM EDT eCW1 ([facility]) Outpatient 08/16/2019 10:35:00 AM EDT [facility] [address] [place] [address] 08/11/2019 12:00:00 AM EDT eCW1 ([facility]) (WC ESTOB) [facility] [address] [place] [address] 08/04/2019 12:00:00 AM EDT eCW1 ([facility]) [facility] [address] [place] [address] 07/27/2019 12:00:00 AM EDT eCW1 ([facility]) [facility] [address] [place] [address] 07/27/2019 12:00:00 AM EDT eCW1 ([facility]) [facility] [address] [place] [address] 07/07/2019 12:00:00 AM EDT eCW1 ([facility]) [facility] [address] [place] [address] 07/02/2019 12:00:00 AM EDT eCW1 ([facility]) [facility] [address] [place] [address] 06/29/2019 12:00:00 AM EDT eCW1 ([facility]) [facility] [address] [place] [address] 06/21/2019 12:00:00 AM EDT eCW1 ([facility]) [facility] [address] [place] [address] 06/04/2019 12:00:00 AM EDT eCW1 ([facility]) [facility] [address] [place] [address] 06/04/2019 12:00:00 AM EDT eCW1 ([facility]) Outpatient 05/24/2019 12:17:00 PM EDT [facility]patient 05/19/2019 09:26:00 AM EST [facility] 05/17/2019 04:38:00 PM EST [facility] 05/17/2019 04:37:00 PM EST [facility] [address] [place] [address] 05/10/2019 12:00:00 AM EST eCW1 ([facility]) [facility] [address] [place] [address] 05/07/2019 12:00:00 AM EST eCW1 ([facility]) [facility] [address] [place] [address] 04/12/2019 12:00:00 AM EST eCW1 ([facility]) [facility] [address] [place] [address] 04/08/2019 12:00:00 AM EST eCW1 ([facility]) [facility] [address] [place] [address] 04/04/2019 12:00:00 AM EST eCW1 ([facility]) Outpatient 03/25/2019 02:48:00 PM EST [facility] 03/24/2019 02:48:00 PM EST [facility] [address] [place] [address] 03/22/2019 12:00:00 AM EST eCW1 ([facility]) [facility] [address] [place] [address] 03/15/2019 12:00:00 AM EST eCW1 ([facility]) [facility] [address] [place] [address] 03/15/2019 12:00:00 AM EST eCW1 ([facility]) [facility] [address] [place] [address] 03/05/2019 12:00:00 AM EST eCW1 ([facility]) [facility] [address] [place] [address] 03/05/2019 12:00:00 AM EST eCW1 ([facility]) [facility] [address] [place] [address] 03/04/2019 12:00:00 AM EST eCW1 ([facility]) [facility] [address] [place] [address] 03/03/2019 12:00:00 AM EST eCW1 ([facility]) Outpatient 03/01/2019 08:36:00 PM EST [facility] [address] [place] [address] 02/18/2019 12:00:00 AM EST eCW1 ([facility]) Immunizations Vaccine Date Status Description Data Source(s) Depo-Provera 150mg/1mL (Medroxy-Progestrone Acetate) 10:37:00 AM EST completed eCW1 ([facility]) Depo-Provera 150mg/1mL (Medroxy-Progestrone Acetate) 10:37:00 AM EST completed eCW1 ([facility]) New in 2011. IIV4 01/31/2020 01:00:00 PM EST completed MEDENT ([facility]) RHo (D) Immune Globulin 300mcg/1.5mL (RhoGAM) 08/25/2019 09: 25:00 AM EDT completed eCW1 ([facility]) RHo (D) Immune Globulin 300mcg/1.5mL (RhoGAM) 08/25/2019 09: 25:00 AM EDT completed eCW1 ([facility]) RHo (D) Immune Globulin 300mcg/1.5mL (RhoGAM) 08/25/2019 09: 25:00 AM EDT completed eCW1 ([facility]) RHo (D) Immune Globulin 300mcg/1.5mL (RhoGAM) 08/25/2019 09: 25:00 AM EDT completed eCW1 ([facility]) RHo (D) Immune Globulin 300mcg/1.5mL (RhoGAM) 08/25/2019 09: 25:00 AM EDT completed eCW1 ([facility]) RHo (D) Immune Globulin 300mcg/1.5mL (RhoGAM) 08/25/2019 09: 25:00 AM EDT completed eCW1 ([facility]) Medications Medication Brand Name Start Date Product Form Dose Route Admi nistrative Instructions Pharmacy Instructions Status Indications Reaction Description Data Source(s) Sulfamethoxazole 800 MG / Trimethoprim 160 MG Oral Tablet [B actrim] Bactrim DS 04/12/2020 12:00:00 AM EST ORAL active MEDENT ([facility]) 24 HR Bupropion Hydrochloride 150 MG Extended Release Oral Tablet Bupropion Hydrochloride ER (XL) 02/18/2020 12:00:00 AM EST ORAL c ompleted MEDENT ([facility]) 24 HR venlafaxine 37.5 MG Extended Release Oral Capsule [Eff exor] Effexor XR 01/31/2020 12:00:00 AM EST ORAL completed MEDENT ([facility]) pantoprazole 40 MG Delayed Release Oral Tablet [Protonix] Pr otonix 12/30/2019 12:00:00 AM EDT ORAL active M EDENT ([facility]) Sucralfate 100 MG/ML Oral Suspension [Carafate] Carafate 12/30/2019 12:00:00 AM EDT ORAL active MEDENT ([facility]) 24 HR Amphetamine aspartate 5 MG / Amphe tamine Sulfate 5 MG / Dextroamphetamine saccharate 5 MG / Dextroamphetamine Sulfate 5 MG Extended Release Oral Capsule [Adderall] Adderall XR 12/30/2019 12:00:00 AM EDT ORAL active MEDENT ([facility]) Sertraline 25 MG Oral Tablet [Zoloft] Zoloft 25 MG Zoloft 25 MG 06/29/2019 12:00:00 AM EDT active 1 tablet eCW1 ([facility]) buspirone hydrochloride 5 MG Oral Tablet BusPIRone HCl 5 MG BusPIRone HCl 5 MG 06/29/2019 12:00:00 AM EDT 1.0 {tablet} active BusPIRone HCl 5 MG eCW1 ([facility]) Sertraline 25 MG Oral Tablet [Zoloft] Zoloft 25 MG Zoloft 25 MG 06/29/2019 12:00:00 AM EDT 1.0 {tablet} active Zo loft 25 MG eCW1 ([facility]) Sertraline 25 MG Oral Tablet [Zoloft] Zoloft 25 MG Zoloft 25 MG 06/29/2019 12:00:00 AM EDT 1.0 {tablet} active Zo loft 25 MG eCW1 ([facility]) Sertraline 25 MG Oral Tablet [Zoloft] Zoloft 25 MG Zoloft 25 MG 06/29/2019 12:00:00 AM EDT 1.0 {tablet} active Zo loft 25 MG eCW1 ([facility]) Sertraline 25 MG Oral Tablet [Zoloft] Zoloft 25 MG Zoloft 25 MG 06/29/2019 12:00:00 AM EDT 1.0 {tablet} active Zo loft 25 MG eCW1 ([facility]) buspirone hydrochloride 5 MG Oral Tablet BusPIRone HCl 5 MG BusPIRone HCl 5 MG 06/29/2019 12:00:00 AM EDT 1.0 {tablet} active BusPIRone HCl 5 MG eCW1 ([facility]) buspirone hydrochloride 5 MG Oral Tablet BusPIRone HCl 5 MG BusPIRone HCl 5 MG 06/29/2019 12:00:00 AM EDT 1.0 {tablet} active BusPIRone HCl 5 MG eCW1 ([facility]) buspirone hydrochloride 5 MG Oral Tablet BusPIRone HCl 5 MG BusPIRone HCl 5 MG 06/29/2019 12:00:00 AM EDT 1.0 {tablet} active BusPIRone HCl 5 MG eCW1 ([facility]) Sertraline 25 MG Oral Tablet [Zoloft] Zoloft 25 MG Zoloft 25 MG 06/29/2019 12:00:00 AM EDT 1.0 {tablet} active Zo loft 25 MG eCW1 ([facility]) buspirone hydrochloride 5 MG Oral Tablet BusPIRone HCl 5 MG BusPIRone HCl 5 MG 06/29/2019 12:00:00 AM EDT 1.0 {tablet} active BusPIRone HCl 5 MG eCW1 ([facility]) buspirone hydrochloride 5 MG Oral Tablet BusPIRone HCl 5 MG BusPIRone HCl 5 MG 06/29/2019 12:00:00 AM EDT 1.0 {tablet} active BusPIRone HCl 5 MG eCW1 ([facility]) buspirone hydrochloride 5 MG Oral Tablet BusPIRone HCl 5 MG BusPIRone HCl 5 MG 06/29/2019 12:00:00 AM EDT active 1 tablet eCW1 ([facility]) Sertraline 25 MG Oral Tablet [Zoloft] Zoloft 25 MG Zoloft 25 MG 06/29/2019 12:00:00 AM EDT 1.0 {tablet} active Zo loft 25 MG eCW1 ([facility]) Sertraline 25 MG Oral Tablet [Zoloft] Zoloft 25 MG Zoloft 25 MG 06/29/2019 12:00:00 AM EDT active 1 tablet eCW1 ([facility]) buspirone hydrochloride 5 MG Oral Tablet BusPIRone HCl 5 MG BusPIRone HCl 5 MG 06/29/2019 12:00:00 AM EDT active 1 tablet eCW1 ([facility]) Sertraline 25 MG Oral Tablet [Zoloft] Zoloft 25 MG Zoloft 25 MG 06/29/2019 12:00:00 AM EDT 1.0 {tablet} active Zo loft 25 MG eCW1 ([facility]) buspirone hydrochloride 5 MG Oral Tablet BusPIRone HCl 5 MG BusPIRone HCl 5 MG 06/29/2019 12:00:00 AM EDT 1.0 {tablet} active BusPIRone HCl 5 MG eCW1 ([facility]) Sertraline 25 MG Oral Tablet [Zoloft] Zoloft 25 MG Zoloft 25 MG 06/29/2019 12:00:00 AM EDT active 1 tablet eCW1 ([facility]) Sertraline 25 MG Oral Tablet [Zoloft] Zoloft 25 MG Zoloft 25 MG 06/29/2019 12:00:00 AM EDT 1.0 {tablet} active Zo loft 25 MG eCW1 ([facility]) buspirone hydrochloride 5 MG Oral Tablet BusPIRone HCl 5 MG BusPIRone HCl 5 MG 06/29/2019 12:00:00 AM EDT active 1 tablet eCW1 ([facility]) buspirone hydrochloride 5 MG Oral Tablet BusPIRone HCl 5 MG BusPIRone HCl 5 MG 06/29/2019 12:00:00 AM EDT 1.0 {tablet} active BusPIRone HCl 5 MG eCW1 ([facility]) Amoxicillin 875 MG / Clavulanate 125 MG Oral Tablet Amoxicillin-Pot Clavulanate 875-125 MG Amoxicillin-Pot Clavulanate 875-125 MG 04/12/2019 12:00:00 AM ES T active 1 tablet eCW1 ([facility]) Amoxicillin 875 MG / Clavulanate 125 MG Oral Tablet Amoxicillin-Pot Clavulanate 875-125 MG Amoxicillin-Pot Clavulanate 875-125 MG 04/12/2019 12:00:00 AM ES T suspended 1 tablet eCW1 ([facility]) Amoxicillin 875 MG / Clavulanate 125 MG Oral Tablet Amoxicillin-Pot Clavulanate 875-125 MG Amoxicillin-Pot Clavulanate 875-125 MG 04/12/2019 12:00:00 AM ES T suspended 1 tablet eCW1 ([facility]) Vitamin 27-0.8 MG Vitamin 27-0.8 MG 2019 12:00:00 AM EST 1.0 {tablet} active Vi tamin 27-0.8 MG eCW1 ([facility]) Vitamin 27-0.8 MG Vitamin 27-0.8 MG 2019 12:00:00 AM EST active 1 tablet eCW1 ([facility]) Vitamin 27-0.8 MG Vitamin 27-0.8 MG 2019 12:00:00 AM EST 1.0 {tablet} active Vi tamin 27-0.8 MG eCW1 ([facility]) Vitamin 27-0.8 MG Vitamin 27-0.8 MG 2019 12:00:00 AM EST active 1 tablet eCW1 ([facility]) Vitamin 27-0.8 MG Vitamin 27-0.8 MG 2019 12:00:00 AM EST active 1 tablet eCW1 ([facility]) Fluoxetine 20 MG Oral Capsule [Prozac] PROzac 20 MG PROzac 2 0 MG 03/23/2019 12:00:00 AM EST suspended 1 cap divya eCW1 ([facility]) Vitamin 27-0.8 MG Vitamin 27-0.8 MG 2019 12:00:00 AM EST 1.0 {tablet} active Vi tamin 27-0.8 MG eCW1 ([facility]) Fluoxetine 20 MG Oral Capsule [Prozac] PROzac 20 MG PROzac 2 0 MG 03/23/2019 12:00:00 AM EST active 1 capsul e eCW1 ([facility]) Vitamin 27-0.8 MG Vitamin 27-0.8 MG 2019 12:00:00 AM EST 1.0 {tablet} active Vi tamin 27-0.8 MG eCW1 ([facility]) Vitamin 27-0.8 MG Vitamin 27-0.8 MG 2019 12:00:00 AM EST active 1 tablet eCW1 ([facility]) Fluoxetine 20 MG Oral Capsule [Prozac] PROzac 20 MG PROzac 2 0 MG 03/23/2019 12:00:00 AM EST suspended 1 cap divya eCW1 ([facility]) Vitamin 27-0.8 MG Vitamin 27-0.8 MG 2019 12:00:00 AM EST active 1 tablet eCW1 ([facility]) Fluoxetine 20 MG Oral Capsule [Prozac] PROzac 20 MG PROzac 2 0 MG 03/23/2019 12:00:00 AM EST suspended 1 cap divya eCW1 ([facility]) Vitamin 27-0.8 MG Vitamin 27-0.8 MG 2019 12:00:00 AM EST 1.0 {tablet} active Vi tamin 27-0.8 MG eCW1 ([facility]) Vitamin 27-0.8 MG Vitamin 27-0.8 MG 2019 12:00:00 AM EST active 1 tablet eCW1 ([facility]) Fluoxetine 20 MG Oral Capsule [Prozac] PROzac 20 MG PROzac 2 0 MG 03/23/2019 12:00:00 AM EST active 1 capsul e eCW1 ([facility]) Vitamin 27-0.8 MG Vitamin 27-0.8 MG 2019 12:00:00 AM EST active 1 tablet eCW1 ([facility]) Vitamin 27-0.8 MG Vitamin 27-0.8 MG 2019 12:00:00 AM EST active 1 tablet eCW1 ([facility]) Fluoxetine 20 MG Oral Capsule [Prozac] PROzac 20 MG PROzac 2 0 MG 03/23/2019 12:00:00 AM EST active 1 capsul e eCW1 ([facility]) Vitamin 27-0.8 MG Vitamin 27-0.8 MG 2019 12:00:00 AM EST 1.0 {tablet} active Vi tamin 27-0.8 MG eCW1 ([facility]) Vitamin 27-0.8 MG Vitamin 27-0.8 MG 2019 12:00:00 AM EST 1.0 {tablet} active Vi tamin 27-0.8 MG eCW1 ([facility]) Vitamin 27-0.8 MG Vitamin 27-0.8 MG 2019 12:00:00 AM EST 1.0 {tablet} active Vi tamin 27-0.8 MG eCW1 ([facility]) Vitamin 27-0.8 MG Vitamin 27-0.8 MG 2019 12:00:00 AM EST active 1 tablet eCW1 ([facility]) Albuterol 0.83 MG/ML Inhalant Solution Albuterol Sulfa te (2.5 MG/3ML) 0.083% Albuterol Sulfate (2.5 MG/3ML) 0.083% 02/18/2019 12:00:00 AM EST active 3 ml eCW1 ([facility]) Albuterol Sulfate HFA 108 (90 Base) MCG/ACT Albuterol Sulfate HFA 108 (90 Base) MCG/ACT 02/18/2019 12:00:00 AM EST suspended 2 puffs as needed eCW1 ([facility]) Albuterol 0.83 MG/ML Inhalant Solution Albuterol Sulfa te (2.5 MG/3ML) 0.083% Albuterol Sulfate (2.5 MG/3ML) 0.083% 02/18/2019 12:00:00 AM EST active 3 ml eCW1 ([facility]) Ondansetron 4 MG Disintegrating Oral Tablet Ondansetron 4 MG 02/18/2019 12:00:00 AM EST active 1 tablet (ODT) o n the tongue and allow to dissolve eCW1 ([facility]) Albuterol Sulfate HFA 108 (90 Base) MCG/ACT Albuterol Sulfate HFA 108 (90 Base) MCG/ACT 02/18/2019 12:00:00 AM EST active 2 puffs as needed eCW1 ([facility]) Albuterol Sulfate HFA 108 (90 Base) MCG/ACT Albuterol Sulfate HFA 108 (90 Base) MCG/ACT 02/18/2019 12:00:00 AM EST suspended 2 puffs as needed eCW1 ([facility]) Albuterol 0.83 MG/ML Inhalant Solution Albuterol Sulfa te (2.5 MG/3ML) 0.083% Albuterol Sulfate (2.5 MG/3ML) 0.083% 02/18/2019 12:00:00 AM EST active 3 ml eCW1 ([facility]) Albuterol Sulfate HFA 108 (90 Base) MCG/ACT Albuterol Sulfate HFA 108 (90 Base) MCG/ACT 02/18/2019 12:00:00 AM EST active 2 puffs as needed eCW1 ([facility]) 12 HR dextromethorphan polistirex 6 MG/M L Extended Release Suspension [Delsym] Delsym 30 MG/5ML Delsym 30 MG/5ML 02/18/2019 12:00:00 AM EST active 10 ml as needed eCW1 ([facility]) Ondansetron 4 MG Disintegrating Oral Tablet Ondansetron 4 MG 02/18/2019 12:00:00 AM EST active 1 tablet (ODT) o n the tongue and allow to dissolve eCW1 ([facility]) Prednisone 20 MG Oral Tablet PredniSONE 20 MG PredniSONE 20 MG 02/18/2019 12:00:00 AM EST active 1 tablet eCW1 ([facility]) Albuterol Sulfate HFA 108 (90 Base) MCG/ACT Albuterol Sulfate HFA 108 (90 Base) MCG/ACT 02/18/2019 12:00:00 AM EST suspended 2 puffs as needed eCW1 ([facility]) Albuterol Sulfate HFA 108 (90 Base) MCG/ACT Albuterol Sulfate HFA 108 (90 Base) MCG/ACT 02/18/2019 12:00:00 AM EST suspended 2 puffs as needed eCW1 ([facility]) Ondansetron 4 MG Disintegrating Oral Tablet Ondansetron 4 MG 02/18/2019 12:00:00 AM EST active 1 tablet (ODT) o n the tongue and allow to dissolve eCW1 ([facility]) Sudafed 30 MG Sudafed 30 MG 02/18/2019 12:00:00 AM EST active 1 tablet as needed eCW1 ([facility]) Flonase 50 MCG/ACT Flonase 50 MCG/ACT 02/18/2019 12:00:00 AM EST active 1 spray in each nostril eCW1 ([facility]) Albuterol Sulfate HFA 108 (90 Base) MCG/ACT Albuterol Sulfate HFA 108 (90 Base) MCG/ACT 02/18/2019 12:00:00 AM EST active 2 puffs as needed eCW1 ([facility]) Flonase 50 MCG/ACT Flonase 50 MCG/ACT 02/18/2019 12:00:00 AM EST active 1 spray in each nostril eCW1 ([facility]) Flonase 50 MCG/ACT Flonase 50 MCG/ACT 02/18/2019 12:00:00 AM EST active 1 spray in each nostril eCW1 ([facility]) Albuterol Sulfate HFA 108 (90 Base) MCG/ACT Albuterol Sulfate HFA 108 (90 Base) MCG/ACT 02/18/2019 12:00:00 AM EST suspended 2 puffs as needed eCW1 ([facility]) Insurance Providers Payer name Policy type / Coverage type Policy ID Covered republican ID Covered republican's relationship to kan Policy Kan Plan Information [facility] [id number] [facility] HUMAN - O/P [id number] 01 [id number] O UNAVAILABLE UNAVAILA BLE HUMANA [facility] REG O [id number] S [id number] [place] [address] Commercial [id number] Family Dependent [id number] [place] [address] Commercial [id number] Family Dependent [id number] [facility] [id number] 2 [id number] [facility] (2018) Health Maintenance Organization (HMO) [id number] Family Dependent [id number] [place] [address] Commercial [id number] Family Dependent [id number] [facility] (2018) Health Maintenance Organization (HMO) [id number] Family Dependent [id number] SELF PAY O UNAVAILABLE S UNAVAILA BLE SELF PAY ONLY [id number] SP [id number] [facility] [id number] [id number] [facility] Commercial [id number] Family Dependent [id number] Problems, Conditions, and Diagnoses Code Display Name Description Problem Type Effective Dates Data Source(s) 032991081 Uncomplicated moderate persistent asthma Uncomplicated moderate persistent asthma Problem 12/30/2019 12:00:00 AM EDT MEDENT ([facility]) [id number] Gastro-esophageal reflux disease with es ophagitis Gastro-esophageal reflux disease with esophagitis Problem 12/30/2019 12:00:00 AM EDT M EDENT ([facility]) [id number] Psoriasis Psoriasis Problem 12/30/2019 12:00:00 AM ED T MEDENT ([facility]) F41.9 Anxiety Anxiety Problem 06/29/2019 12:00:00 AM ED T eCW1 ([facility]) F41.9 Anxiety Anxiety Problem 06/29/2019 12:00:00 AM ED T eCW1 ([facility]) J30.9 Allergic rhinitis Allergic rhinitis Problem 05/11/2019 12:00:00 AM EST eCW1 ([facility]) J30.9 Allergic rhinitis Allergic rhinitis Problem 05/11/2019 12:00:00 AM EST eCW1 ([facility]) Z34.80 care Supervision of other normal P roblem 03/15/2019 12:00:00 AM EST eCW1 ([facility]) Z34.80 care Supervision of other normal P roblem 03/15/2019 12:00:00 AM EST eCW1 ([facility]) J45.901 [id number] Exacerbation of asth ma, unspecified asthma severity, unspecified whether persistent Problem 02/18/2019 12:00:00 AM EST eC W1 ([facility]) J45.901 [id number] Exacerbation of asth ma, unspecified asthma severity, unspecified whether persistent Problem 02/18/2019 12:00:00 AM EST eC W1 ([facility]) Surgeries/Procedures Procedure Description Date Indications Data Source(s) Injection, medroxyprogesterone acetate for contraceptive use , 150 mg 02/25/2020 12:00:00 AM EST eCW1 ([facility]) URINE-NO MICRO 10/01/2019 12:00:00 AM EDT eCW1 ([facility]) Immunization: Boostrix 0.5mL IM (TDAP) 09/08/2019 12:0 0:00 AM EDT eCW1 ([facility]) Injection: RhoGAM 300mcg/1.5mL IM (Rho [D] Immune Globulin H uman) 08/25/2019 12:00:00 AM EDT eCW1 ([facility]) OB Visit 07/07/2019 12:00:00 AM EDT e CW1 ([facility]) Office Visit, Est Pt., Level 3 PC 03/23/2019 12:00:00 AM EST eCW1 ([facility]) STREP A ASSAY W/OPTIC 02/18/2019 12:00:00 AM EST eCW1 ([facility]) Albuterol, inhalation solution, fda-appr ronnie final product, non-compounded, administered through dme, unit dose, 1 mg 02/18/2019 12:00:00 AM EST eCW1 ([facility]) NEB/MDI RX INITIAL 02/18/2019 12:00:00 AM EST eCW1 ([facility]) Results ID Date Data Source [id number] 04/14/2020 11:16:00 [place] [address] PHONE: [phone] FAX: [phone] Name .................. : DIMPLE Massey Acct Number.................. : [id number] ROOM. ................. : Number ................... : [id number] Stay type ............. : O/P Discharge Date......... ... : 04/12/20 Admit Date ......... : 04/12/20 Admit Phys .................... : [facility] Date of ....... : 1985 Family Phys ................... : NONSTAFF Phone .................. : [phone] Age ................................ : 34 Film# .................. .:[id number] Sex ................................. : F Unsigned transcriptions are preliminary reports and do not represent a medical or legal document BREAST RIGHT [id number] COMPLETE:04/12/20 20:00 ADB 3090 (TEST REASON: PAIN AT 6 O'CLOCK MARGIN RIGHT BREAST ULTRASOUND: INDICATION: Pain at the 6 o'clock margin. FINDINGS: Focused camejo scale ultrasound of the entire right breast was performed. There is an indistinct heterogeneous appearance of the breast tissue in the 6 o'clock position of the right breast. I see no evidence of cyst, abscess or mass. There appears to be edema in the soft tissues. No other abnormality is visualiz ed in the right breast. IMPRESSION: BI-RADS category 3. Heterogeneous appearance of the area of concern in the right breast at the 6 o'clock position. Recommend short term follow up ultrasound and mammogram after a course of treatment. Electronically Reviewed and Signed By Silver Hawk M.D. , 04/14/20 11:16, [facility] Transcribe Initials: ROSEMARIE , Transcribe Date: 04/12/20 22:13, Dictation Date: Copy for: FAITH MCPHERSON via fax Copy for: [address] [place] [address] Page 1 of 1 Name Value Range Interpretation Code Description Data Agnieszka rce(s) Supporting Document(s) ID Date Data Source [id number] 04/14/2020 11:16:00 AM [facility] [address] [place] [address] PHONE: [phone] FAX: [phone] Name .................. : DIMPLE Massey Acct Number.................. : [id number] ROOM. ................. : MR Number ................... : [id number] Stay type ............. : O/P Discharge Date......... ... : 04/12/20 Admit Date ......... : 04/12/20 Admit Phys .................... : [facility] Date of ....... : 1985 Family Phys ................... : NONSTAFF Phone .................. : [phone] Age ................................ : 34 Film# .................. .:[id number] Sex ................................. : F Unsigned transcriptions are preliminary reports and do not represent a medical or legal document BREAST LEFT [id number] COMPLETE:04/12/20 20:00 ADB 3089 (TEST REASON: DRAINAGE OF PUS FROM LEFT NIPPLE AT PIERCING SITE LEFT BREAST ULTRASOUND: INDICATION: Drainage of pus from piercing site. FINDINGS: There is a 0.9 x 1.1 x 0.4 cm heterogeneous focus adjacent to the nipple with no significant color Doppler flow. The findings could represent phlegmonous change. Other etiology is not excluded. BI-RADS category 3. One centimeter heterogeneous focus near the nipple. Recommend short term follow up ultrasound after a course of treatment. Electronically Reviewed and Signed By Silver Hawk M.D. , 04/14/20 11:16, [facility] Transcribe Initials: Dawit [place] anscribe Date: 04/12/20 22:11, Dictation Date: Copy for: FAITH MCPHERSON via fax Copy for: 710 MED REC Page 1 of 1 Name Value Range Interpretation Code Description Data Agnieszka rce(s) Supporting Document(s) ID Date Data Source [id number] 04/12/2020 04:02:00 PM EST [facility] ([facility]) Name Value Range Interpretation Code Description Data Agnieszka rce(s) Supporting Document(s) Bacteria identified in Wound shallow by Aerobe culture Laborator y test result Normal (applies to non-numeric results) [facility] ([facility]) <content>FULL REPORT IN LAB NOTES (eCW a nd [facility]).</content>
<content></content>
<content>ORGANISM 1: STAPH.AUREUS METHICILLIN RESIS</content>
<content></content>
<content>QUANTITY OF GROWTH MODERATE</content>
<content></content>
<content></content>
<content> </content>
<content>ORGANISM 1: STAPH.AUREUS METHICILLIN RESIS</content>
<content></content>
<content>STAPH.AUREUS METHICILLIN RESIS: REACTION</content>
<content>ICR (INDUCIBLE CC RESISTANCE) IV ICR TEST RESULT</content>
<content>TETRACYCLINE PO 250 mg qid <=1 S</content>
<content>PENICILLIN G IV 1 mu q6H >=0.5 R</content>
<content>PENICILLIN G IV 1 mu q6h >=0.5 R</content>
<content>PENICILLIN G PO 250mg q6h fasting >=0.5 R</content>
<content> TRIMETHOPRIM/SULFAMETHOXAZOLE IV 160mg TMP & 800mg SMXq6h <=10 S</content>
<content>TRIMETHOPRIM/SULFAMETHOXAZOLE PO Bactrim DS Bid <=10 S</content>
<content>ERYTHROMYCIN IV 500mg q6h >=8 R</content>
<content>ERYTHROMYCIN PO 500mg q6h >=8 R</content>
<content>GENTAMICIN IV 80mg q8h <=0.5 S</content>
<content>CLINDAMYCIN IV 600mg q6h 0.25 S</content>
<content>CLINDAMYCIN PO 150mg q6h 0.25 S</content>
<content>OXACILLIN IV 500mg q6h >=4 R</content>
<content>VANCOMYCIN IV 500mg q8h 1 S</content>
<content>LINEZOLID (ZYVOX) IV 600MG Q12HR 2 S</content>
<content> LINEZOLID (ZYVOX) PO 600MG Q12HR 2 S</content>
<content>An isolate with a (+) POSITIVE ICR test is considered</content>
<content>CLINDAMYCIN RESISTANT; however, clindamycin may still</content>
<content>be effective in some patients.</content>
<content>An isolate with a (-) NEGATIVE ICR test is considered</content>
<content>CLIDAMYCIN SENSITIVE.</content>
<content></content> ID Date Data Source GROUP B STREP CULTURE 10/06/2019 05:44:43 AM EDT eCW1 ([facility]) Name Value Range Interpretation Code Description Data Agnieszka rce(s) Supporting Document(s) GROUP B STREP CULTURE eCW1 ([facility]) ID Date Data Source [id number] 07/30/2019 11:28:00 AM EDT [facility] ([facility], ) Name Value Range Interpretation Code Description Data Agnieszka rce(s) Supporting Document(s) Glucose tolerance 3 hours gestational panel - Serum or Plasma Laboratory test result [facility] ([facility]) <content>GTT3 GESTATIONA 3HR GLU 3 HR GL U from 0515:[id number].</content>
<content>note:<nlbl:demographic_changed></content><b GESTATIONA 3HR GLU 3 HR GLU from 0515:[id number].</content>
<content></content> Laboratory test finding (navigational concept) 57 mg/dL Normal (applies to non-numeric results) [facility] ([facility], ) ID Date Data Source [id number] 07/30/2019 11:28:00 AM EDT [facility]) Name Value Range Interpretation Code Description Data Agnieszka rce(s) Supporting Document(s) Laboratory test finding (navigational concept) 57 mg/dL Normal (applies to non-numeric results) [facility] ([facility]) ID Date Data Source [id number] 07/30/2019 10:26:00 AM EDT [facility]) Name Value Range Interpretation Code Description Data Agnieszka rce(s) Supporting Document(s) Glucose [Moles/volume] in Serum or Plasma --[address] XXX challenge Laboratory test result [facility] ([facility]) <content>GTT3 GESTATIONA 2HR GLU 2 HR GL U from 0515:[id number].</content>
<content>note:<nlbl:demographic_changed></content><b GESTATIONA 2HR GLU 2 HR GLU from 0515:[id number].</content>
<content></content> 2 HR Glucose 114 mg/dL Normal (applies to non-numeric res ults) [facility]) ID Date Data Source [id number] 07/30/2019 10:26:00 AM EDT [facility] ([facility]) Name Value Range Interpretation Code Description Data Agnieszka rce(s) Supporting Document(s) Glucose [Moles/volume] in Serum or Plasma --[address] XXX challenge 114 mg/dL Normal (applies to non-numeric results) [facility] ([facility]) <content>GTT3 GESTATIONA 2HR GLU 2 HR GL U from 0515:[id number].</content>
<content>note:<nlbl:demographic_changed></content><b GESTATIONA 2HR GLU 2 HR GLU from 0515:[id number].</content>
<content></content> ID Date Data Source [id number] 07/30/2019 09:27:00 AM EDT [facility] ([facility]) Name Value Range Interpretation Code Description Data Agnieszka rce(s) Supporting Document(s) Glucose [Mass/volume] in Serum or Plasma --1 hour post 50 g glucose PO Laboratory test result [facility] ([facility]) <content>GTT3 GESTATIONA 1HR GLU 1 HR GL UCOSE from 514:[id number].</content>
<content>note:<nlbl:demographic_changed></content><b GESTATIONA 1HR GLU 1 HR GLUCOSE from 514:[id number].</content>
<content></content> 1 HR Glucose 167 mg/dL Normal (applies to non-numeric res ults) [facility] ([facility]) ID Date Data Source [id number] 07/30/2019 09:27:00 AM EDT [facility]) Name Value Range Interpretation Code Description Data Agnieszka rce(s) Supporting Document(s) 1 HR Glucose 167 mg/dL Normal (applies to non-numeric res ults) [facility] ([facility]) ID Date Data Source [id number] 07/30/2019 08:25:00 AM EDT [facility] ([facility]) Name Value Range Interpretation Code Description Data Agnieszka rce(s) Supporting Document(s) Glucose [Mass/volume] in Serum or Plasma --pre 75 g glucose PO 8 5 mg/dL Normal (applies to non-numeric results) [facility] ([facility]) <content>GTT3 GESTATIONA FASTING FAST GL U from 05:[id number].</content>
<content>note:<nlbl:demographic_changed></content><b GESTATIONA FASTING FAST GLU from 514:[id number].</content>
<content></content> ID Date Data Source [id number] 07/30/2019 08:25:00 AM EDT [facility]) Name Value Range Interpretation Code Description Data Agnieszka rce(s) Supporting Document(s) Glucose, Fasting 85 mg/dL Normal (applies to non-numeric results) [facility]) ID Date Data Source [id number] 07/30/2019 08:20:00 AM EDT [facility]) Name Value Range Interpretation Code Description Data Agnieszka rce(s) Supporting Document(s) QuantiFERON TB1 Ag Value 0.02 IU/ml Normal (applies to non -numeric results) [facility] ([facility]) QuantiFERON Criteria Laboratory test result Norm al (applies to non-numeric results) [facility]) . The QuantiFERON-TB Gold Plus result is determined by subtracting the Nil value from either TB antigen (Ag) tube. The mitogen tube serves as a control for the test. QuantiFERON TB2 Ag Value 0.01 IU/ml Normal (applies to non -numeric results) [facility] ([facility]) QuantiFERON-TB Gold Plus Laboratory test result Normal (applies to non-numeric results) [facility]) . The specimen received for QuantiFERON testing was incubated by the ordering institution. Specific procedures outlined in our Directory of Services and in the package insert for the QuantiFERON Gold (In Tube) test must be followed to enable for proper stimulation of cells for the production of interferon gamma. Performed at: RN - [facility] [address] [id number] Multimedia Teacher: Lalitha Almendarez MD, Phone: [phone] QuantiFERON Nil Value 0.02 IU/ml Normal (applies to non-nu meric results) [facility] ([facility]) QuantiFERON Mitogen Value Laboratory test result Normal (applies to non- numeric results) [facility]) ID Date Data Source [id number] 07/30/2019 08:20:00 AM EDT [facility]) Name Value Range Interpretation Code Description Data [facility] rce(s) Supporting Document(s) Creatinine For GFR 0.51 mg/dL 0.55-1.30 Below low normal [facility] ([facility]) Blood Urea Nitrogen 4 mg/dL 7-18 Below low normal [facility] ([facility]) Glucose, Fasting 84 mg/dL 70-100 Normal (applies to non-numeric results) [facility] ([facility]) Sodium Level 140 meq/L 136-145 Normal (applies to non-numeric res ults) [facility]) Glomerular Filtration Rate Laboratory test result Normal (applies to non- numeric results) [facility] ([facility]) <content>Units are mL/min/1.73 m2</content>
<content></content>
<content>Chronic Kidney Disease Staging per NKF:</content>
<content></content>
<content>Stage I & II GFR >=60 Normal to Mildly Decreased</content>
<content>Stage III GFR 30- 59 Moderately Decreased</content>
<content>Stage IV GFR 15-29 Severely Decreased</content>
<content>Stage V GFR <15 Very Little GFR Left</content>
<content>ESRD GFR <15 on PAINTER SPRAY</content>
<content></content> Potassium Serum 4.0 meq/L 3.5-5.1 Normal (applies to non-numeric results) [facility] ([facility]) Anion Gap 8 meq/L 8-16 Normal (applies to non-numeric resul ts) [facility] ([facility]) Carbon Dioxide Level 25 meq/L 21-32 Normal (applies to non-num roxie results) [facility] ([facility]) Chloride Level 107 meq/L 98-107 Normal (applies to non-numeric r esults) [facility] ([facility]) Phosphorus Level 2.9 mg/dL 2.5-4.9 Normal (applies to non-numeric results) [facility] ([facility]) Calcium Level 8.0 mg/dL 8.5-10.1 Below low normal [facility] ([facility]) ID Date Data Source [id number] 07/30/2019 08:20:00 AM EDT [facility] ([facility]) Name Value Range Interpretation Code Description Data Agnieszka rce(s) Supporting Document(s) Alkaline Phosphatase 63 U/L 45-117 Normal (applies to non-num roxie results) [facility] ([facility]) Ast/Sgot 10 U/L 7-37 Normal (applies to non-numeric resul ts) [facility] ([facility]) Alt/SGPT 13 U/L 12-78 Normal (applies to non-numeric resul ts) [facility] ([facility]) Total Protein 6.3 GM/DL 6.4-8.2 Below low normal [facility] ([facility]) Albumin 2.7 GM/DL 3.2-5.2 Below low normal [facility] ( [facility]) Bilirubin,Total 0.2 mg/dL 0.2-1.0 Normal (applies to non-numeric results) [facility] ([facility]) Bilirubin,Direct Laboratory test result 0.0-0.2 Normal ( applies to non-numeric results) [facility] ([facility]) Albumin/Globulin Ratio 0.8 1.2-2.2 Below low normal [facility] ([facility]) ID Date Data Source [id number] 07/30/2019 08:20:00 AM EDT [facility] ([facility]) Name Value Range Interpretation Code Description Data Agnieszka rce(s) Supporting Document(s) Red Blood Count 3.96 10 4.00-5.40 Below low normal [facility] ([facility]) White Blood Count 10.2 10 4.0-10.0 Above high normal [facility] ([facility]) Hemoglobin 11.9 g/dL 12.0-15.5 Below low normal [facility] ( [facility]) Hematocrit 37.0 % 36.0-47.0 Normal (applies to non-numeric resul ts) [facility] ([facility]) Mean Corpuscular Volume 93.4 fl 80.0-96.0 Normal ( applies to non-numeric results) [facility]) Mean Corpuscular Hemoglobin 30.1 pg 27.0-33.0 Norm al (applies to non-numeric results) [facility] ([facility]) Red Cell Distribution Width 13.1 % 11.5-14.5 Norm al (applies to non-numeric results) [facility] ([facility]) Mean Corpuscular HGB Conc 32.2 g/dL 32.0-36.5 Normal (applies to non-numeric results) [facility] ([facility]) Platelet Count, Automated 301 10 150-450 Normal (applies to non-numeric results) [facility] ([facility]) Neutrophils % 64.9 % 36.0-66.0 Normal (applies to non-numeric re sults) [facility] ([facility]) Lymph % 20.4 % 24.0-44.0 Below low normal [facility] ( [facility]) Elbert % 7.2 % 0.0-5.0 Above high normal [facility] ([facility]) Eos % 6.3 % 0.0-3.0 Above high normal [facility] ([facility]) Baso % 0.5 % 0.0-1.0 Normal (applies to non-numeric resul ts) [facility] ([facility]) Immature Granulocyte % 0.7 % 0-3.0 Normal (applies to non-n umeric results) [facility] ([facility]) Neutrophils # 6.6 10 1.5-8.5 Normal (applies to non-numeric re sults) [facility] ([facility]) Elbert # 0.7 10 0.0-0.8 Normal (applies to non-numeric resul ts) [facility] ([facility]) Nucleated Red Blood Cell % 0.0 % 0-0 Normal (applies to n on-numeric results) [facility] ([facility]) Lymph # 2.1 10 1.5-5.0 Normal (applies to non-numeric resul ts) [facility] ([facility]) Baso # 0.1 10 0.0-0.2 Normal (applies to non-numeric resul ts) [facility] ([facility]) Eos # 0.6 10 0.0-0.5 Above high normal [facility] ([facility]) ID Date Data Source [id number] 07/30/2019 08:15:00 AM EDT [facility] ([facility], ) Name Value Range Interpretation Code Description Data Agnieszka rce(s) Supporting Document(s) Glucose, Fasting 85 mg/dL Normal (applies to non-numeric results) [facility] ([facility], ) 1 HR Glucose 167 mg/dL Normal (applies to non-numeric res ults) [facility] ([facility]) Laboratory test finding (navigational concept) 57 mg/dL Normal (applies to non-numeric results) [facility] ([facility]) 2 HR Glucose 114 mg/dL Normal (applies to non-numeric res ults) [facility] ([facility]) ID Date Data Source [id number] 07/30/2019 08:15:00 AM EDT [facility]) Name Value Range Interpretation Code Description Data Agnieszka rce(s) Supporting Document(s) Glucose, Fasting 85 mg/dL Normal (applies to non-numeric results) [facility]) 1 HR Glucose 167 mg/dL Normal (applies to non-numeric res ults) [facility] ([facility]) Laboratory test finding (navigational concept) 57 mg/dL Normal (applies to non-numeric results) [facility]) 2 HR Glucose 114 mg/dL Normal (applies to non-numeric res ults) [facility]) ID Date Data Source RUBELLA IMMUNE STATUS IgG 03/29/2019 12:00:00 AM EST eCW1 ([facility]) Name Value Range Interpretation Code Description Data Agnieszka rce(s) Supporting Document(s) IMMUNE IMMUNE RUBELLA IgG QUALITATIVE eCW1 ( [facility]) ID Date Data Source SYPHILIS ANTIBODY (RPR SCREEN) 03/29/2019 12:00:00 AM EST eC W1 ([facility]) Name Value Range Interpretation Code Description Data Agnieszka rce(s) Supporting Document(s) NONREACTIVE NONREACTIVE SYPHILIS eCW1 ([facility]) ID Date Data Source HEPATITIS C ANTIBODY INDEX 03/29/2019 12:00:00 AM EST eCW1 ( [facility]) Name Value Range Interpretation Code Description Data Agnieszka rce(s) Supporting Document(s) 0.0 <0.8 HEPATITIS C VIRUS PRAVIN INDEX eC W1 ([facility]) ID Date Data Source CHLAMYDIA & GC DNA AMPLIFICAT 03/29/2019 12:00:00 AM EST eCW 1 ([facility]) Name Value Range Interpretation Code Description Data Agnieszka rce(s) Supporting Document(s) Chlamydia trachomatis rRNA [Presence] in Unspecified specimen by Probe and target amplification method NEGATIVE NEGATIVE CHLAMYDIA DNA AMPLIFICATION eCW1 ([facility]) ID Date Data Source Type and Screen Prenatal1 03/29/2019 12:00:00 AM EST eCW1 ([facility]) Name Value Range Interpretation Code Description Data Agnieszka rce(s) Supporting Document(s) POSITIVE AB SCREEN PNP1 GEL (VIS) eCW1 ([facility]) ID Date Data Source [id number] 03/07/2019 11:45:00 AM EST [facility] ([facility]) Name Value Range Interpretation Code Description Data Agnieszka rce(s) Supporting Document(s) Reflex Urine Culture Laboratory test result Norm al (applies to non-numeric results) [facility] ([facility]) FULL REPORT IN LAB NOTES (eCW and [facility] ). NO GROWTH ID Date Data Source [id number] 03/07/2019 11:45:00 AM EST [facility] ([facility]) Name Value Range Interpretation Code Description Data Agnieszka rce(s) Supporting Document(s) Color, Urine RFX Laboratory test result Normal ( applies to non-numeric results) [facility] ([facility]) Appearance, Urine RFX Laboratory test result Nor mal (applies to non-numeric results) [facility] ([facility]) Specific Marshall Ur Auto RFX 1.005 1.002-1.035 Nor mal (applies to non-numeric results) [facility] ([facility]) Protein, Urine Auto RFX Laboratory test result N ormal (applies to non-numeric results) [facility] ([facility]) PH,Urine RFX 7.0 units 5.0-9.0 Normal (applies to non-numeric res ults) [facility] ([facility]) Ketone, Urine Auto RFX Laboratory test result No rmal (applies to non-numeric results) [facility] ([facility]) Glucose, Urine (Ua) Auto RFX Laboratory test result Normal (applies to non- numeric results) [facility] ([facility]) Urobilinogen, Urine Auto RFX 0.2 mg/dL 0.0-2.0 Nor mal (applies to non-numeric results) [facility] ([facility]) Bilirubin, Urine Auto RFX Laboratory test result Normal (applies to non- numeric results) [facility] ([facility]) Nitrite, Urine Auto RFX Laboratory test result N ormal (applies to non-numeric results) [facility] ([facility]) Leukocyte Esterase Ur Auto RFX Laboratory test result Abov e high normal [facility]) Blood, Urine Blood RFX Laboratory test result Above high n ormal [facility] ([facility]) RBC, Urine Auto RFX 34 /HPF 0-3 Above high normal [facility] ([facility]) WBC, Urine Auto RFX 5 /HPF 0-3 Above high normal [facility] ([facility]) Hyaline Cast, Urine Auto RFX 0 /LPF 0-1 Normal (appl ies to non-numeric results) [facility] ([facility]) Squam Epithelial Cell Ur Aurfx 10 /HPF 0-6 N ormal (applies to non-numeric results) [facility] ([facility]) Bacteria, Urine Auto RFX Laboratory test result Above high normal [facility] ([facility]) ID Date Data Source [id number] 03/07/2019 10:51:00 AM EST [facility]) Name Value Range Interpretation Code Description Data Agnieszka rce(s) Supporting Document(s) Choriogonadotropin.beta subunit [Moles/volume] in Serum or P lasma 77342 MIU/ML Normal (applies to non-numeric results) [facility] ([facility]) GESTATIONAL AGE APPROXIMATE HCG RANGE (MIU/ML) - 0.2-1 WEEK 5-50 1-2 WEEKS 50-500 2-3 WEEKS 100-5,000 3-4 WEEKS 500-10,000 4-5 WEEKS 1,000-50,000 5-6 WEEKS 10,000-100,000 6-8 WEEKS 15,000-200,000 2-3 MONTHS 10,000-100,00 0 NON FEMALES LESS THAN 3.0 Patient samples may contain human heterophilic antibodies that could react with immunoassays to give falsely elevated or depressed results. This assay has been designed to minimize interference from heterophilic antibodies. Elevated hCG levels have also been associated with trophoblastic disease and nontrophoblastic neoplasms. The possibility of having these diseases should be considered before a diagnosis of is made. This test is not intended for use as a surrogate marker for aiding in the diagnosis or monitoring the treatment of cancer patients. [employer] [place] methodology. ID Date Data Source [id number] 03/03/2019 07:47:00 PM EST [facility] ([facility]) Name Value Range Interpretation Code Description Data Agnieszka rce(s) Supporting Document(s) Rh immune globulin screen [interpretation] Laboratory test result [facility] ([facility]) TRANSFUSED PRODUCT: RHOGAM COUNT: 1 ID Date Data Source [id number] 03/03/2019 07:15:00 PM EST [facility] ([facility]) Name Value Range Interpretation Code Description Data Agnieszka rce(s) Supporting Document(s) Wet Prep Laboratory test result Normal (applies to non-n umeric results) [facility] ([facility]) FEW EPITHELIAL CELLS PRESENT FEW WBC FEW LONG RODS PRESENT ID Date Data Source [id number] 03/03/2019 06:50:00 PM EST [facility] ([facility]) Name Value Range Interpretation Code Description Data Agnieszka rce(s) Supporting Document(s) Chlamydia Dna Amplification Laboratory test result Normal (applies to non- numeric results) [facility] ([facility]) A negative test result does not exclude the possibility of infection because test results may be affected by improper specimen collection, technical error, specimen mix-up, concurrent antibiotic therapy, or the number of organisms in the specimen which may be below the sensitivity of the test. GC Dna Amplification Laboratory test result Norm al (applies to non-numeric results) [facility] ([facility]) A negative test result does not exclude the possibility of infection because test results may be affected by improper specimen collection, technical error, specimen mix-up, concurrent antibiotic therapy, or the number of organisms in the specimen which may be below the sensitivity of the test. ID Date Data Source [id number] 03/03/2019 05:25:00 PM EST [facility] ([facility]) Name Value Range Interpretation Code Description Data Agnieszka rce(s) Supporting Document(s) Blood Type Laboratory test result Normal (applies to non-n umeric results) [facility] ([facility]) AB Screen (Indirect Mekhi)Vis Laboratory test result Normal (applies to non- numeric results) [facility] ([facility]) ID Date Data Source [id number] 03/03/2019 05:24:00 PM EST [facility] ([facility]) Name Value Range Interpretation Code Description Data Agnieszka rce(s) Supporting Document(s) Choriogonadotropin.beta subunit [Moles/volume] in Serum or Plasm a 4765 MIU/ML Normal (applies to non-numeric results) [facility] ([facility]) GESTATIONAL AGE APPROXIMATE HCG RANGE (MIU/ML) - 0.2-1 WEEK 5-50 1-2 WEEKS 50-500 2-3 WEEKS 100-5,000 3-4 WEEKS 500-10,000 4-5 WEEKS 1,000-50,000 5-6 WEEKS 10,000-100,000 6-8 WEEKS 15,000-200,000 2-3 MONTHS 10,000-100,00 0 NON FEMALES LESS THAN 3.0 Patient samples may contain human heterophilic antibodies that could react with immunoassays to give falsely elevated or depressed results. This assay has been designed to minimize interference from heterophilic antibodies. Elevated hCG levels have also been associated with trophoblastic disease and nontrophoblastic neoplasms. The possibility of having these diseases should be considered before a diagnosis of is made. This test is not intended for use as a surrogate marker for aiding in the diagnosis or monitoring the treatment of cancer patients. [employer] [place] methodology. ID Date Data Source [id number] 03/03/2019 05:24:00 PM EST [facility] ([facility]) Name Value Range Interpretation Code Description Data Agnieszka rce(s) Supporting Document(s) Appearance, Urine RFX Laboratory test result Nor mal (applies to non-numeric results) [facility] ([facility]) Color, Urine RFX Laboratory test result Normal ( applies to non-numeric results) [facility] ([facility]) Protein, Urine Auto RFX Laboratory test result N ormal (applies to non-numeric results) [facility] ([facility]) PH,Urine RFX 6.0 units 5.0-9.0 Normal (applies to non-numeric res ults) [facility] ([facility]) Specific [place] Ur Auto RFX 1.006 1.002-1.035 Nor mal (applies to non-numeric results) [facility] ([facility]) Urobilinogen, Urine Auto RFX 0.2 mg/dL 0.0-2.0 Nor mal (applies to non-numeric results) [facility] ([facility]) Ketone, Urine Auto RFX Laboratory test result No rmal (applies to non-numeric results) [facility] ([facility]) Glucose, Urine (Ua) Auto RFX Laboratory test result Normal (applies to non- numeric results) [facility] ([facility]) Leukocyte Esterase Ur Auto RFX Laboratory test result Normal (applies to non- numeric results) [facility] ([facility]) Nitrite, Urine Auto RFX Laboratory test result N ormal (applies to non-numeric results) [facility] ([facility]) Bilirubin, Urine Auto RFX Laboratory test result Normal (applies to non- numeric results) [facility] ([facility]) WBC, Urine Auto RFX 3 /HPF 0-3 Normal (applies to non-nume hailey results) [facility] ([facility]) RBC, Urine Auto RFX 2 /HPF 0-3 Normal (applies to non-nume hailey results) [facility] ([facility]) Blood, Urine Blood RFX Laboratory test result Above high n ormal [facility] ([facility]) Bacteria, Urine Auto RFX Laboratory test result Above high normal [facility] ([facility]) Transitional Epithelial AU RFX Laboratory test result Normal (applies to non- numeric results) [facility] ([facility]) Squam Epithelial Cell Ur Aurfx 7 /HPF 0-6 N ormal (applies to non-numeric results) [facility] ([facility]) Hyaline Cast, Urine Auto RFX 0 /LPF 0-1 Normal (appl ies to non-numeric results) [facility] ([facility]) ID Date Data Source [id number] 03/03/2019 05:24:00 PM EST [facility] ([facility]) Name Value Range Interpretation Code Description Data Agnieszka rce(s) Supporting Document(s) Hemoglobin 13.8 g/dL 12.0-15.5 Normal (applies to non-numeric resul ts) [facility] ([facility]) Red Blood Count 4.67 10 4.00-5.40 Normal (applies to non-numeric results) [facility] ([facility]) White Blood Count 10.3 10 4.0-10.0 Above high normal [facility] ([facility]) Hematocrit 42.7 % 36.0-47.0 Normal (applies to non-numeric resul ts) [facility] ([facility]) Mean Corpuscular Hemoglobin 29.6 pg 27.0-33.0 Norm al (applies to non-numeric results) [facility] ([facility]) Mean Corpuscular Volume 91.4 fl 80.0-96.0 Normal ( applies to non-numeric results) [facility] ([facility]) Mean Corpuscular HGB Conc 32.3 g/dL 32.0-36.5 Normal (applies to non-numeric results) [facility] ([facility]) Red Cell Distribution Width 12.3 % 11.5-14.5 Norm al (applies to non-numeric results) [facility] ([facility]) Platelet Count, Automated 401 10 150-450 Normal (applies to non-numeric results) [facility] ([facility]) Lymph % 24.7 % 24.0-44.0 Normal (applies to non-numeric resul ts) [facility] ([facility]) Elbert % 8.2 % 0.0-5.0 Above high normal [facility] ([facility]) Neutrophils % 60.4 % 36.0-66.0 Normal (applies to non-numeric re sults) [facility] ([facility]) Baso % 0.9 % 0.0-1.0 Normal (applies to non-numeric resul ts) [facility] ([facility]) Eos % 5.5 % 0.0-3.0 Above high normal [facility] ([facility]) Immature Granulocyte % 0.3 % 0-3.0 Normal (applies to non-n umeric results) [facility] ([facility]) Lymph # 2.6 10 1.5-5.0 Normal (applies to non-numeric resul ts) [facility] ([facility]) Nucleated Red Blood Cell % 0.0 % 0-0 Normal (applies to n on-numeric results) [facility] ([facility]) Neutrophils # 6.2 10 1.5-8.5 Normal (applies to non-numeric re sults) [facility] ([facility]) Baso # 0.1 10 0.0-0.2 Normal (applies to non-numeric resul ts) [facility] ([facility]) Elbert # 0.9 10 0.0-0.8 Above high normal [facility] ([facility]) Eos # 0.6 10 0.0-0.5 Above high normal [facility] ([facility]) ID Date Data Source GATS (NEGATIVE STREP SCREEN) 02/18/2019 12:00:00 AM EST eCW1 ([facility]) Name Value Range Interpretation Code Description Data Agnieszka rce(s) Supporting Document(s) FULL REPORT IN LAB NOTES ([facility] and [facility]). GATS CULTURE (NEG STREP SCR) eCW1 ([facility]) Procedure Social History Code Duration Value Status Description Data Source(s ) Smoking 10/08/2019 12:00:00 AM EDT Never Smoker completed Never S moker eCW1 ([facility]) Smoking 10/08/2019 12:00:00 AM EDT Never Smoker completed Never S moker eCW1 ([facility]) Smoking 10/08/2019 12:00:00 AM EDT Never Smoker completed Never S moker eCW1 ([facility]) Smoking 10/08/2019 12:00:00 AM EDT Never Smoker completed Never S moker eCW1 ([facility]) Smoking 10/08/2019 12:00:00 AM EDT Never Smoker completed Never S moker eCW1 ([facility]) Smoking 10/01/2019 12:00:00 AM EDT Never Smoker completed Never S moker eCW1 ([facility]) Smoking 08/31/2019 12:00:00 AM EDT Never Smoker completed Never S karen eCW1 ([facility]) Smoking 08/11/2019 12:00:00 AM EDT Never Smoker completed Never James jones eCW1 ([facility]) Vital Signs ID Date Data Source UNK Name Value Range Interpretation Code Description Data Source(s) [place] body weight 130 [lb_av] 130 [lb_av] [facility] ([facility]) Oxygen saturation in Arterial blood by Pulse oximetry 121 % 121 % [facility]) Body temperature 99.8 [degF] 99.8 [degF] [facility] ([facility]) Respiratory rate 18 /min 18 /min [facility] ( [facility]) Heart rate 99 /min 99 /min [facility] ([facility]) Body mass index (BMI) [Ratio] 26.3 kg/m2 26.3 k g/m2 [facility] ([facility]) Body weight 163.00 [lb_av] 163.00 [lb_av] [facility] ([facility]) Body height 66 [in_i] 66 [in_i] [facility] ([facility]) 5'6" Diastolic blood pressure 87 mm[Hg] 87 mm[Hg] [facility] ([facility]) Systolic blood pressure 138 mm[Hg] 138 mm[Hg] [facility] [place] body weight 130 [lb_av] 130 [lb_av] [facility] ([facility]) Oxygen saturation in Arterial blood by Pulse oximetry 96 % 96 % [facility]) Body temperature 98.9 [degF] 98.9 [degF] [facility] ([facility]) Respiratory rate 18 /min 18 /min [facility] ( [facility]) Heart rate 103 /min 103 /min [facility] ([facility]) Body mass index (BMI) [Ratio] 26.5 kg/m2 26.5 k g/m2 [facility] ([facility]) Body weight 164.00 [lb_av] 164.00 [lb_av] [facility] ([facility]) Body height 66 [in_i] 66 [in_i] [facility] ([facility]) 5'6" Diastolic blood pressure 64 mm[Hg] 64 mm[Hg] [facility] ([facility]) Systolic blood pressure 122 mm[Hg] 122 mm[Hg] M [facility] ([facility]) [place] body weight 130 [lb_av] 130 [lb_av] [facility] ([facility]) Oxygen saturation in Arterial blood by Pulse oximetry 99 % 99 % [facility] ([facility]) Body temperature 99.0 [degF] 99.0 [degF] [facility] ([facility]) Respiratory rate 18 /min 18 /min [facility] ( [facility]) Heart rate 99 /min 99 /min [facility] ([facility]) Body mass index (BMI) [Ratio] 26.9 kg/m2 26.9 k g/m2 [facility] ([facility]) Body weight 166.38 [lb_av] 166.38 [lb_av] [facility] ([facility]) Body height 66 [in_i] 66 [in_i] [facility] ([facility]) 5'6" Diastolic blood pressure 70 mm[Hg] 70 mm[Hg] [facility] ([facility]) Systolic blood pressure 112 mm[Hg] 112 mm[Hg] [facility] ([facility]) Body weight 73.483 kg 73.483 kg [facility], ) [place] body weight 130 [lb_av] 130 [lb_av] [facility] ([facility], ) Body mass index (BMI) [Ratio] 26.1 kg/m2 26.1 k g/m2 [facility] ([facility], ) Body weight 162.00 [lb_av] 162.00 [lb_av] [facility] ([facility], ) Body height 66 [in_i] 66 [in_i] [facility] ([facility], ) 5'6" Diastolic blood pressure 60 mm[Hg] 60 mm[Hg] [facility] ([facility], ) Systolic blood pressure 120 mm[Hg] 120 mm[Hg] [facility] ([facility], ) [place] body weight 130 [lb_av] 130 [lb_av] [facility] ([facility]) Oxygen saturation in Arterial blood by Pulse oximetry 97 % 97 % [facility] ([facility]) Body temperature 99.1 [degF] 99.1 [degF] [facility] ([facility]) Respiratory rate 18 /min 18 /min [facility] ( [facility]) Heart rate 66 /min 66 /min [facility] ([facility]) Body mass index (BMI) [Ratio] 25.6 kg/m2 25.6 k g/m2 [facility]) Body weight 158.38 [lb_av] 158.38 [lb_av] [facility] ([facility]) Body height 66 [in_i] 66 [in_i] [facility] 5'6" Diastolic blood pressure 68 mm[Hg] 68 mm[Hg] [facility]) Systolic blood pressure 114 mm[Hg] 114 mm[Hg] M [facility] ([facility]) Diastolic blood pressure 70 mm[Hg] 70 mm[Hg] eCW1 ([facility]) Systolic blood pressure 108 mm[Hg] 108 mm[Hg] e CW1 ([facility]) Body mass index (BMI) [Ratio] 28.356 kg/m2 28.3 56 kg/m2 W1 ([facility]) Body height 65 [in_i] 65 [in_i] eCW1 ([facility]) Body weight 170.4 [lb_av] 170.4 [lb_av] eCW1 ([facility]) Diastolic blood pressure 62 mm[Hg] 62 mm[Hg] eCW1 ([facility]) Systolic blood pressure 118 mm[Hg] 118 mm[Hg] e CW1 ([facility]) Body mass index (BMI) [Ratio] 29.122 kg/m2 29.1 22 kg/m2 [facility] ([facility]) Body height 65 [in_i] 65 [in_i] eCW1 ([facility]) Body weight 175 [lb_av] 175 [lb_av] eCW1 ([facility]) Diastolic blood pressure 72 mm[Hg] 72 mm[Hg] eCW1 ([facility]) Systolic blood pressure 110 mm[Hg] 110 mm[Hg] e CW1 ([facility]) Body mass index (BMI) [Ratio] 29.587 kg/m2 29.5 87 kg/m2 eCW1 ([facility]) Body height 65 [in_i] 65 [in_i] eCW1 ([facility]) Body weight 177.8 [lb_av] 177.8 [lb_av] eCW1 ([facility]) Diastolic blood pressure 64 mm[Hg] 64 mm[Hg] eCW1 ([facility]) Systolic blood pressure 116 mm[Hg] 116 mm[Hg] e CW1 ([facility]) Body mass index (BMI) [Ratio] 28.955 kg/m2 28.9 55 kg/m2 eCW1 ([facility]) Body height 65 [in_i] 65 [in_i] eCW1 ([facility]) Body weight 174 [lb_av] 174 [lb_av] eCW1 ([facility]) Diastolic blood pressure 72 mm[Hg] 72 mm[Hg] eCW1 ([facility]) Systolic blood pressure 106 mm[Hg] 106 mm[Hg] e CW1 ([facility]) Body temperature 98.8 [degF] 98.8 [degF] eCW1 ( [facility]) Respiratory rate 18 /min 18 /min eCW1 ([facility]) Heart rate 104 /min 104 /min eCW1 ([facility]) Body mass index (BMI) [Ratio] 28.29 kg/m2 28.29 kg/m2 eCW1 ([facility]) Body height 65 [in_us] 65 [in_us] eCW1 ([facility]) Body weight Measured 170 [lb_av] 170 [lb_av] eC W1 ([facility]) Diastolic blood pressure 78 mm[Hg] 78 mm[Hg] eCW1 ([facility]) Systolic blood pressure 112 mm[Hg] 112 mm[Hg] e CW1 ([facility]) Body mass index (BMI) [Ratio] 28.456 kg/m2 28.4 56 kg/m2 eCW1 ([facility]) Body height 65 [in_i] 65 [in_i] eCW1 ([facility]) Body weight 171 [lb_av] 171 [lb_av] eCW1 ([facility]) Diastolic blood pressure 68 mm[Hg] 68 mm[Hg] eCW1 ([facility]) Systolic blood pressure 118 mm[Hg] 118 mm[Hg] e CW1 ([facility]) Body mass index (BMI) [Ratio] 28.19 kg/m2 28.19 kg/m2 eCW1 ([facility]) Body height 65 [in_us] 65 [in_us] eCW1 ([facility]) Body weight Measured 169.4 [lb_av] 169.4 [lb_av ] eCW1 ([facility]) Diastolic blood pressure 78 mm[Hg] 78 mm[Hg] eCW1 ([facility]) Systolic blood pressure 122 mm[Hg] 122 mm[Hg] e CW1 ([facility]) Body mass index (BMI) [Ratio] 26.759 kg/m2 26.7 59 kg/m2 eCW1 ([facility]) Body height 65 [in_us] 65 [in_us] eCW1 ([facility]) Body weight Measured 160.8 [lb_av] 160.8 [lb_av ] eCW1 ([facility]) Diastolic blood pressure 80 mm[Hg] 80 mm[Hg] eCW1 ([facility]) Systolic blood pressure 119 mm[Hg] 119 mm[Hg] e CW1 ([facility]) Body temperature 97.8 [degF] 97.8 [degF] eCW1 ( [facility]) Respiratory rate 18 /min 18 /min eCW1 ([facility]) Heart rate 103 /min 103 /min eCW1 ([facility]) Body mass index (BMI) [Ratio] 27.45 kg/m2 27.45 kg/m2 eCW1 ([facility]) Body height 65 [in_us] 65 [in_us] eCW1 ([facility]) Body weight Measured 165 [lb_av] 165 [lb_av] eC W1 ([facility]) Body height 65 [in_us] 65 [in_us] eCW1 ([facility]) Body weight Measured 158.4 [lb_av] 158.4 [lb_av ] eCW1 ([facility]) Diastolic blood pressure 74 mm[Hg] 74 mm[Hg] eCW1 ([facility]) Systolic blood pressure 112 mm[Hg] 112 mm[Hg] e CW1 ([facility]) Body mass index (BMI) [Ratio] 26.359 kg/m2 26.3 59 kg/m2 eCW1 ([facility]) Diastolic blood pressure 79 mm[Hg] 79 mm[Hg] eCW1 ([facility]) Systolic blood pressure 113 mm[Hg] 113 mm[Hg] e CW1 ([facility]) Body temperature [degF] eCW1 ([facility]) Respiratory rate 16 /min 16 /min eCW1 ([facility]) Heart rate 99 /min 99 /min eCW1 ([facility]) Body mass index (BMI) [Ratio] 26.46 kg/m2 26.46 kg/m2 eCW1 ([facility]) Body height 65 [in_us] 65 [in_us] eCW1 ([facility]) Body weight Measured 159 [lb_av] 159 [lb_av] eC W1 ([facility]) Diastolic blood pressure 70 mm[Hg] 70 mm[Hg] eCW1 ([facility]) Systolic blood pressure 120 mm[Hg] 120 mm[Hg] e CW1 ([facility]) Body mass index (BMI) [Ratio] 26.22 kg/m2 26.22 kg/m2 eCW1 ([facility]) Body height 65 [in_us] 65 [in_us] eCW1 ([facility]) Body weight Measured 157.6 [lb_av] 157.6 [lb_av ] eCW1 ([facility]) Diastolic blood pressure 76 mm[Hg] 76 mm[Hg] eCW1 ([facility]) Systolic blood pressure 126 mm[Hg] 126 mm[Hg] e CW1 ([facility]) Body mass index (BMI) [Ratio] 26.46 kg/m2 26.46 kg/m2 eCW1 ([facility]) Body height 65 [in_us] 65 [in_us] eCW1 ([facility]) Body weight Measured 159 [lb_av] 159 [lb_av] eC W1 ([facility]) Diastolic blood pressure 85 mm[Hg] 85 mm[Hg] eCW1 ([facility]) Systolic blood pressure 121 mm[Hg] 121 mm[Hg] e CW1 ([facility]) Body temperature 98.7 [degF] 98.7 [degF] eCW1 ( [facility]) Respiratory rate 18 /min 18 /min eCW1 ([facility]) Heart rate 98 /min 98 /min eCW1 ([facility]) Body mass index (BMI) [Ratio] 26.12 kg/m2 26.12 kg/m2 eCW1 ([facility]) Body height 65 [in_us] 65 [in_us] eCW1 ([facility]) Body weight Measured 157 [lb_av] 157 [lb_av] eC W1 ([facility]) Patient Treatment Plan of Care Planned Activity Planned Date Details Description Data Source (s) buspirone hydrochloride 5 MG Oral Tablet 06/29/2019 12:00:00 AM EDT eCW1 ([facility]) Sertraline 25 MG Oral Tablet [Zoloft] 06/29/2019 12:00:00 AM EDT eCW1 ([facility]) Amoxicillin 875 MG / Clavulanate 125 MG Oral Tablet 01/27/20 20 12:00:00 AM EST eCW1 ([facility]) Vitamin 27-0.8 MG 03/23/2019 12:00:00 AM EST eCW1 ([facility]) Vitamin 27-0.8 MG 03/23/2019 12:00:00 AM EST eCW1 ([facility]) Fluoxetine 20 MG Oral Capsule [Prozac] 03/23/2019 12:00:00 AM EST eCW1 ([facility]) Vitamin 27-0.8 MG 03/23/2019 12:00:00 AM EST eCW1 ([facility]) Albuterol Sulfate HFA 108 (90 Base) MCG/ACT 02/18/2019 12:00:00 AM EST eCW1 ([facility]) Ondansetron 4 MG Disintegrating Oral Tablet 02/18/2019 12:00:00 AM EST eCW1 ([facility]) 12 HR dextromethorphan polistirex 6 MG/ML Extended Rel ease Suspension [Delsym] 02/18/2019 12:00:00 AM EST eCW1 ([facility]) Sudafed 30 MG 02/18/2019 12:00:00 AM EST eCW1 ([facility]) Flonase 50 MCG/ACT 02/18/2019 12:00:00 AM EST eCW1 ([facility]) Prednisone 20 MG Oral Tablet 02/18/2019 12:00:00 AM EST eCW1 ([facility]) Albuterol 0.83 MG/ML Inhalant Solution 02/18/2019 12:00:00 AM EST eCW1 ([facility])
[2020-04-16] MEDS ORDERED: BACT800T5 PO (19:07)
--- OUTSIDE RECORDS SUMMARY | 2020-04-16 20:59 | CCD ---
Author Author [facility] Organization [facility] Address Unknown Phone Unavailable Care Team Providers Care Toe Laster Name Role Phone NON-STAFF, PHYSICIAN Unavailable Unavailable [...] is protected by Article 27-F of the [place] [facility] Public Health law. If you continue you may have access to information: Regarding HIV / AIDS; Provided by facilities licensed or operated by the [facility] Office of Mental Health; or Provided by the [facility] Office for People With Developmental Disabilities. If such information is present, then the following [facility] mandated warning applies: This information has been [...] law may result in a fine or senior living sentence or both. A general authorization for the release of medical or other information is NOT sufficient authorization for further disc losure. Allergies and Adverse Reactions Type Description Substance Reaction Status Data Source(s ) aspirin Aspirin Aspirin Unknown Active eCW1 ([facility]) Family History Family Member Name Family Member Gender Family Member Status Date o f Status Description Data Source(s) Unknown Female Problem MEDENT ([facility]) Unknown Male Problem MEDENT ([facility]) Unknown Unknown Problem [facility] Encounters Encounter Providers Location Date Indications Data Source(s ) Unknown [address] [facility] [address] 04/13/2020 12:00:00 AM EST eCW1 ([facility]) Outpatient Attender: [place] Taylorant: PHYSICIAN NO N-STAFF 04/12/2020 04:52:00 PM EST - 04/12/2020 05:52:00 PM EST [facility] Outpatient Attender: Ky RODRIGUEZ [facility] 04/12/2020 02:30:00 PM EST MEDENT ([facility]) ( [place]) [facility] Nurse Visit [address] [place] [address] 02/25/2020 12:00:00 AM EST eCW1 ([facility]) Outpatient Attender: Ky RODRIGUEZ [facility] 02/18/2020 12:40:00 PM EST MEDENT ([facility]) Outpatient Attender: Ky RODRIGUEZ [facility] 01/31/2020 12:30:00 PM EST MEDENT ([facility]) Outpatient Attender: yK RODRIGUEZ [facility] 12/30/2019 01:00:00 PM EDT MEDENT ([facility]) ( ESTOB) WCenter Est OB [address] [place] [address] 10/01/2019 12:00:00 AM EDT eCW1 ([facility]) Unknown [address] [facility] [address] 09/30/2019 12:00:00 AM EDT eCW1 ([facility]) ( ESTOB) [facility] Est OB [address] [place] [address] 09/23/2019 12:00:00 AM EDT eCW1 ([facility]) ( ESTOB) WCenter Est OB [address] [place] [address] 09/08/2019 12:00:00 AM EDT eCW1 ([facility]) [facility] [address] [place] [address] 08/26/2019 12:00:00 AM EDT eCW1 (On license of [facility]) (WC ESTOB) WCenter Est OB [address] [place] [address] 08/25/2019 12:00:00 AM EDT eCW1 ([facility]) Outpatient 08/16/2019 10:35:00 AM EDT [facility] [address] [place] [address] 08/11/2019 12:00:00 AM EDT eCW1 ([facility]) (WC ESTOB) WCenter Est OB [address] [place] [address] 08/04/2019 12:00:00 AM EDT eCW1 ([facility]) [facility] [address] [place] [address] 07/27/2019 12:00:00 AM EDT eCW1 (On license of [facility]) [facility] [address] [place] [address] 07/27/2019 12:00:00 AM EDT eCW1 (On license of [facility]) [facility] [address] [place] [address] 07/07/2019 12:00:00 AM EDT eCW1 (On license of [facility]) [facility] [address] [place] [address] 07/02/2019 12:00:00 AM EDT eCW1 (On license of [facility]) [facility] [address] [place] [address] 06/29/2019 12:00:00 AM EDT eCW1 (On license of [facility]) [facility] [address] [place] [address] 06/21/2019 12:00:00 AM EDT eCW1 (On license of [facility]) [facility] [address] [place] [address] 06/04/2019 12:00:00 AM EDT eCW1 (On license of [facility]) [facility] [address] [place] [address] 06/04/2019 12:00:00 AM EDT eCW1 ([facility]) Outpatient 05/24/2019 12:17:00 PM EDT [facility]patient 05/19/2019 09:26:00 AM EST [facility]patient 05/17/2019 04:38:00 PM EST [facility]patient 05/17/2019 04:37:00 PM EST [facility] [address] [place] [address] 05/10/2019 12:00:00 AM EST eCW1 (On license of [facility]) [facility] [address] [place] [address] 05/07/2019 12:00:00 AM EST eCW1 (On license of [facility]) [facility] [address] [place] [address] 04/12/2019 12:00:00 AM EST eCW1 ([facility]) [facility] [address] [place] [address] 04/08/2019 12:00:00 AM EST eCW1 (On license of [facility]) [facility] [address] [place] [address] 04/04/2019 12:00:00 AM EST eCW1 ([facility]) Outpatient 03/25/2019 02:48:00 PM EST [facility] 03/24/2019 02:48:00 PM EST [facility] [address] [place] [address] 03/22/2019 12:00:00 AM EST eCW1 (On license of [facility]) [facility] [address] [place] [address] 03/15/2019 12:00:00 AM EST eCW1 (On license of [facility]) [facility] [address] [place] [address] 03/15/2019 12:00:00 AM EST eCW1 (On license of [facility]) [facility] [address] [place] [address] 03/05/2019 12:00:00 AM EST eCW1 (On license of [facility]) [facility] [address] [place] [address] 03/05/2019 12:00:00 AM EST eCW1 (On license of [facility]) [facility] [address] [place] [address] 03/04/2019 12:00:00 AM EST eCW1 (On license of [facility]) [facility] [address] [place] [address] 03/03/2019 12:00:00 AM EST eCW1 (On license of [facility]) Outpatient 03/01/2019 08:36:00 PM EST [facility] [address] [place] [address] 02/18/2019 12:00:00 AM EST eCW1 ([facility]) Immunizations Vaccine Date Status Description Data Source(s) Depo-Provera 150mg/1mL (Medroxy-Progestrone Acetate) 10:37:00 AM EST completed eCW1 ([facility]) Depo-Provera 150mg/1mL (Medroxy-Progestrone Acetate) 10:37:00 AM EST completed eCW1 ([facility]) New in 2011. IIV4 01/31/2020 01:00:00 PM EST completed MEDENT ([facility]) RHo (D) Immune Globulin 300mcg/1.5mL (RhoGAM) 08/25/2019 09: 25:00 AM EDT completed eCW1 ([facility]) RHo (D) Immune Globulin 300mcg/1.5mL (RhoGAM) 08/25/2019 09: 25:00 AM EDT completed eCW1 ([facility]) RHo (D) Immune Globulin 300mcg/1.5mL (RhoGAM) 08/25/2019 09: 25:00 AM EDT completed eCW1 ([facility]) RHo (D) Immune Globulin 300mcg/1.5mL (RhoGAM) 08/25/2019 09: 25:00 AM EDT completed eCW1 ([facility]) RHo (D) Immune Globulin 300mcg/1.5mL (RhoGAM) 08/25/2019 09: 25:00 AM EDT completed eCW1 ([facility]) RHo (D) Immune Globulin 300mcg/1.5mL (RhoGAM) 08/25/2019 09: 25:00 AM EDT completed eCW1 ([facility]) Medications Medication Brand Name Start Date Product Form Dose Route Admi nistrative Instructions Pharmacy Instructions Status Indications Reaction Description Data Source(s) Sulfamethoxazole 800 MG / Trimethoprim 160 MG Oral Tablet [B actrim] Bactrim DS 04/12/2020 12:00:00 AM EST ORAL active MEDENT ([facility]) 24 HR Bupropion Hydrochloride 150 MG Extended Release Oral Tablet Bupropion Hydrochloride ER (XL) 02/18/2020 12:00:00 AM EST ORAL c ompleted MEDENT ([facility]) 24 HR venlafaxine 37.5 MG Extended Release Oral Capsule [Eff exor] Effexor XR 01/31/2020 12:00:00 AM EST ORAL completed MEDENT ([facility]) pantoprazole 40 MG Delayed Release Oral Tablet [Protonix] Pr otonix 12/30/2019 12:00:00 AM EDT ORAL active M EDENT ([facility]) Sucralfate 100 MG/ML Oral Suspension [Carafate] Carafate 12/30/2019 12:00:00 AM EDT ORAL active MEDENT ([facility]) 24 HR Amphetamine aspartate 5 MG / Amphe tamine Sulfate 5 MG / Dextroamphetamine saccharate 5 MG / Dextroamphetamine Sulfate 5 MG Extended Release Oral Capsule [Adderall] Adderall XR 12/30/2019 12:00:00 AM EDT ORAL active MEDENT ([facility]) Sertraline 25 MG Oral Tablet [Zoloft] Zoloft 25 MG Zoloft 25 MG 06/29/2019 12:00:00 AM EDT active 1 tablet eCW1 ([facility]) buspirone hydrochloride 5 MG Oral Tablet BusPIRone HCl 5 MG BusPIRone HCl 5 MG 06/29/2019 12:00:00 AM EDT 1.0 {tablet} active BusPIRone HCl 5 MG eCW1 ([facility]) Sertraline 25 MG Oral Tablet [Zoloft] Zoloft 25 MG Zoloft 25 MG 06/29/2019 12:00:00 AM EDT 1.0 {tablet} active Zo loft 25 MG eCW1 ([facility]) Sertraline 25 MG Oral Tablet [Zoloft] Zoloft 25 MG Zoloft 25 MG 06/29/2019 12:00:00 AM EDT 1.0 {tablet} active Zo loft 25 MG eCW1 ([facility]) Sertraline 25 MG Oral Tablet [Zoloft] Zoloft 25 MG Zoloft 25 MG 06/29/2019 12:00:00 AM EDT 1.0 {tablet} active Zo loft 25 MG eCW1 ([facility]) Sertraline 25 MG Oral Tablet [Zoloft] Zoloft 25 MG Zoloft 25 MG 06/29/2019 12:00:00 AM EDT 1.0 {tablet} active Zo loft 25 MG eCW1 ([facility]) buspirone hydrochloride 5 MG Oral Tablet BusPIRone HCl 5 MG BusPIRone HCl 5 MG 06/29/2019 12:00:00 AM EDT 1.0 {tablet} active BusPIRone HCl 5 MG eCW1 ([facility]) buspirone hydrochloride 5 MG Oral Tablet BusPIRone HCl 5 MG BusPIRone HCl 5 MG 06/29/2019 12:00:00 AM EDT 1.0 {tablet} active BusPIRone HCl 5 MG eCW1 ([facility]) buspirone hydrochloride 5 MG Oral Tablet BusPIRone HCl 5 MG BusPIRone HCl 5 MG 06/29/2019 12:00:00 AM EDT 1.0 {tablet} active BusPIRone HCl 5 MG eCW1 ([facility]) Sertraline 25 MG Oral Tablet [Zoloft] Zoloft 25 MG Zoloft 25 MG 06/29/2019 12:00:00 AM EDT 1.0 {tablet} active Zo loft 25 MG eCW1 ([facility]) buspirone hydrochloride 5 MG Oral Tablet BusPIRone HCl 5 MG BusPIRone HCl 5 MG 06/29/2019 12:00:00 AM EDT 1.0 {tablet} active BusPIRone HCl 5 MG eCW1 ([facility]) buspirone hydrochloride 5 MG Oral Tablet BusPIRone HCl 5 MG BusPIRone HCl 5 MG 06/29/2019 12:00:00 AM EDT 1.0 {tablet} active BusPIRone HCl 5 MG eCW1 ([facility]) buspirone hydrochloride 5 MG Oral Tablet BusPIRone HCl 5 MG BusPIRone HCl 5 MG 06/29/2019 12:00:00 AM EDT active 1 tablet eCW1 ([facility]) Sertraline 25 MG Oral Tablet [Zoloft] Zoloft 25 MG Zoloft 25 MG 06/29/2019 12:00:00 AM EDT 1.0 {tablet} active Zo loft 25 MG eCW1 ([facility]) Sertraline 25 MG Oral Tablet [Zoloft] Zoloft 25 MG Zoloft 25 MG 06/29/2019 12:00:00 AM EDT active 1 tablet eCW1 ([facility]) buspirone hydrochloride 5 MG Oral Tablet BusPIRone HCl 5 MG BusPIRone HCl 5 MG 06/29/2019 12:00:00 AM EDT active 1 tablet eCW1 ([facility]) Sertraline 25 MG Oral Tablet [Zoloft] Zoloft 25 MG Zoloft 25 MG 06/29/2019 12:00:00 AM EDT 1.0 {tablet} active Zo loft 25 MG eCW1 ([facility]) buspirone hydrochloride 5 MG Oral Tablet BusPIRone HCl 5 MG BusPIRone HCl 5 MG 06/29/2019 12:00:00 AM EDT 1.0 {tablet} active BusPIRone HCl 5 MG eCW1 ([facility]) Sertraline 25 MG Oral Tablet [Zoloft] Zoloft 25 MG Zoloft 25 MG 06/29/2019 12:00:00 AM EDT active 1 tablet eCW1 ([facility]) Sertraline 25 MG Oral Tablet [Zoloft] Zoloft 25 MG Zoloft 25 MG 06/29/2019 12:00:00 AM EDT 1.0 {tablet} active Zo loft 25 MG eCW1 ([facility]) buspirone hydrochloride 5 MG Oral Tablet BusPIRone HCl 5 MG BusPIRone HCl 5 MG 06/29/2019 12:00:00 AM EDT active 1 tablet eCW1 ([facility]) buspirone hydrochloride 5 MG Oral Tablet BusPIRone HCl 5 MG BusPIRone HCl 5 MG 06/29/2019 12:00:00 AM EDT 1.0 {tablet} active BusPIRone HCl 5 MG eCW1 ([facility]) Amoxicillin 875 MG / Clavulanate 125 MG Oral Tablet Amoxicillin-Pot Clavulanate 875-125 MG Amoxicillin-Pot Clavulanate 875-125 MG 04/12/2019 12:00:00 AM ES T active 1 tablet eCW1 ([facility]) Amoxicillin 875 MG / Clavulanate 125 MG Oral Tablet Amoxicillin-Pot Clavulanate 875-125 MG Amoxicillin-Pot Clavulanate 875-125 MG 04/12/2019 12:00:00 AM ES T suspended 1 tablet eCW1 (On license of [facility]) Amoxicillin 875 MG / Clavulanate 125 MG Oral Tablet Amoxicillin-Pot Clavulanate 875-125 MG Amoxicillin-Pot Clavulanate 875-125 MG 04/12/2019 12:00:00 AM ES T suspended 1 tablet eCW1 (On license of [facility]) Vitamin 27-0.8 MG Vitamin 27-0.8 MG 2019 12:00:00 AM EST 1.0 {tablet} active Vi tamin 27-0.8 MG eCW1 ([facility]) Vitamin 27-0.8 MG Vitamin 27-0.8 MG 2019 12:00:00 AM EST active 1 tablet eCW1 ([facility]) Vitamin 27-0.8 MG Vitamin 27-0.8 MG 2019 12:00:00 AM EST 1.0 {tablet} active Vi tamin 27-0.8 MG eCW1 ([facility]) Vitamin 27-0.8 MG Vitamin 27-0.8 MG 2019 12:00:00 AM EST active 1 tablet eCW1 ([facility]) Vitamin 27-0.8 MG Vitamin 27-0.8 MG 2019 12:00:00 AM EST active 1 tablet eCW1 ([facility]) Fluoxetine 20 MG Oral Capsule [Prozac] PROzac 20 MG PROzac 2 0 MG 03/23/2019 12:00:00 AM EST suspended 1 cap divya eCW1 ([facility]) Vitamin 27-0.8 MG Vitamin 27-0.8 MG 2019 12:00:00 AM EST 1.0 {tablet} active Vi tamin 27-0.8 MG eCW1 ([facility]) Fluoxetine 20 MG Oral Capsule [Prozac] PROzac 20 MG PROzac 2 0 MG 03/23/2019 12:00:00 AM EST active 1 capsul e eCW1 ([facility]) Vitamin 27-0.8 MG Vitamin 27-0.8 MG 2019 12:00:00 AM EST 1.0 {tablet} active Vi tamin 27-0.8 MG eCW1 ([facility]) Vitamin 27-0.8 MG Vitamin 27-0.8 MG 2019 12:00:00 AM EST active 1 tablet eCW1 ([facility]) Fluoxetine 20 MG Oral Capsule [Prozac] PROzac 20 MG PROzac 2 0 MG 03/23/2019 12:00:00 AM EST suspended 1 cap divya eCW1 ([facility]) Vitamin 27-0.8 MG Vitamin 27-0.8 MG 2019 12:00:00 AM EST active 1 tablet eCW1 ([facility]) Fluoxetine 20 MG Oral Capsule [Prozac] PROzac 20 MG PROzac 2 0 MG 03/23/2019 12:00:00 AM EST suspended 1 cap divya eCW1 ([facility]) Vitamin 27-0.8 MG Vitamin 27-0.8 MG 2019 12:00:00 AM EST 1.0 {tablet} active Vi tamin 27-0.8 MG eCW1 ([facility]) Vitamin 27-0.8 MG Vitamin 27-0.8 MG 2019 12:00:00 AM EST active 1 tablet eCW1 ([facility]) Fluoxetine 20 MG Oral Capsule [Prozac] PROzac 20 MG PROzac 2 0 MG 03/23/2019 12:00:00 AM EST active 1 capsul e eCW1 ([facility]) Vitamin 27-0.8 MG Vitamin 27-0.8 MG 2019 12:00:00 AM EST active 1 tablet eCW1 ([facility]) Vitamin 27-0.8 MG Vitamin 27-0.8 MG 2019 12:00:00 AM EST active 1 tablet eCW1 ([facility]) Fluoxetine 20 MG Oral Capsule [Prozac] PROzac 20 MG PROzac 2 0 MG 03/23/2019 12:00:00 AM EST active 1 capsul e eCW1 ([facility]) Vitamin 27-0.8 MG Vitamin 27-0.8 MG 2019 12:00:00 AM EST 1.0 {tablet} active Vi tamin 27-0.8 MG eCW1 ([facility]) Vitamin 27-0.8 MG Vitamin 27-0.8 MG 2019 12:00:00 AM EST 1.0 {tablet} active Vi tamin 27-0.8 MG eCW1 ([facility]) Vitamin 27-0.8 MG Vitamin 27-0.8 MG 2019 12:00:00 AM EST 1.0 {tablet} active Vi tamin 27-0.8 MG eCW1 ([facility]) Vitamin 27-0.8 MG Vitamin 27-0.8 MG 2019 12:00:00 AM EST active 1 tablet eCW1 ([facility]) Albuterol 0.83 MG/ML Inhalant Solution Albuterol Sulfa te (2.5 MG/3ML) 0.083% Albuterol Sulfate (2.5 MG/3ML) 0.083% 02/18/2019 12:00:00 AM EST active 3 ml eCW1 ([facility]) Albuterol Sulfate HFA 108 (90 Base) MCG/ACT Albuterol Sulfate HFA 108 (90 Base) MCG/ACT 02/18/2019 12:00:00 AM EST suspended 2 puffs as needed eCW1 ([facility]) Albuterol 0.83 MG/ML Inhalant Solution Albuterol Sulfa te (2.5 MG/3ML) 0.083% Albuterol Sulfate (2.5 MG/3ML) 0.083% 02/18/2019 12:00:00 AM EST active 3 ml eCW1 ([facility]) Ondansetron 4 MG Disintegrating Oral Tablet Ondansetron 4 MG 02/18/2019 12:00:00 AM EST active 1 tablet (ODT) o n the tongue and allow to dissolve eCW1 ([facility]) Albuterol Sulfate HFA 108 (90 Base) MCG/ACT Albuterol Sulfate HFA 108 (90 Base) MCG/ACT 02/18/2019 12:00:00 AM EST active 2 puffs as needed eCW1 ([facility]) Albuterol Sulfate HFA 108 (90 Base) MCG/ACT Albuterol Sulfate HFA 108 (90 Base) MCG/ACT 02/18/2019 12:00:00 AM EST suspended 2 puffs as needed eCW1 ([facility]) Albuterol 0.83 MG/ML Inhalant Solution Albuterol Sulfa te (2.5 MG/3ML) 0.083% Albuterol Sulfate (2.5 MG/3ML) 0.083% 02/18/2019 12:00:00 AM EST active 3 ml eCW1 ([facility]) Albuterol Sulfate HFA 108 (90 Base) MCG/ACT Albuterol Sulfate HFA 108 (90 Base) MCG/ACT 02/18/2019 12:00:00 AM EST active 2 puffs as needed eCW1 ([facility]) 12 HR dextromethorphan polistirex 6 MG/M L Extended Release Suspension [Delsym] Delsym 30 MG/5ML Delsym 30 MG/5ML 02/18/2019 12:00:00 AM EST active 10 ml as needed eCW1 ([facility]) Ondansetron 4 MG Disintegrating Oral Tablet Ondansetron 4 MG 02/18/2019 12:00:00 AM EST active 1 tablet (ODT) o n the tongue and allow to dissolve eCW1 ([facility]) Prednisone 20 MG Oral Tablet PredniSONE 20 MG PredniSONE 20 MG 02/18/2019 12:00:00 AM EST active 1 tablet eCW1 ([facility]) Albuterol Sulfate HFA 108 (90 Base) MCG/ACT Albuterol Sulfate HFA 108 (90 Base) MCG/ACT 02/18/2019 12:00:00 AM EST suspended 2 puffs as needed eCW1 ([facility]) Albuterol Sulfate HFA 108 (90 Base) MCG/ACT Albuterol Sulfate HFA 108 (90 Base) MCG/ACT 02/18/2019 12:00:00 AM EST suspended 2 puffs as needed eCW1 ([facility]) Ondansetron 4 MG Disintegrating Oral Tablet Ondansetron 4 MG 02/18/2019 12:00:00 AM EST active 1 tablet (ODT) o n the tongue and allow to dissolve eCW1 ([facility]) Sudafed 30 MG Sudafed 30 MG 02/18/2019 12:00:00 AM EST active 1 tablet as needed eCW1 ([facility]) Flonase 50 MCG/ACT Flonase 50 MCG/ACT 02/18/2019 12:00:00 AM EST active 1 spray in each nostril eCW1 ([facility]) Albuterol Sulfate HFA 108 (90 Base) MCG/ACT Albuterol Sulfate HFA 108 (90 Base) MCG/ACT 02/18/2019 12:00:00 AM EST active 2 puffs as needed eCW1 ([facility]) Flonase 50 MCG/ACT Flonase 50 MCG/ACT 02/18/2019 12:00:00 AM EST active 1 spray in each nostril eCW1 ([facility]) Flonase 50 MCG/ACT Flonase 50 MCG/ACT 02/18/2019 12:00:00 AM EST active 1 spray in each nostril eCW1 ([facility]) Albuterol Sulfate HFA 108 (90 Base) MCG/ACT Albuterol Sulfate HFA 108 (90 Base) MCG/ACT 02/18/2019 12:00:00 AM EST suspended 2 puffs as needed eCW1 ([facility]) Insurance Providers Payer name Policy type / Coverage type Policy ID Covered alliance party ID Covered alliance party's relationship to kan Policy Kan Plan Information [facility] [id number] HU2 [id number] [facility] HUMAN - O/P [id number] 01 [id number] O UNAVAILABLE UNAVAILA BLE HUMANA [facility] REG O [id number] S [id number] [place] [id number] Commercial [id number] Family Dependent [id number] [place] [address] Commercial [id number] Family Dependent [id number] [facility] [id number] [facility] (2018) Health Maintenance Organization (HMO) [id number] Family Dependent [id number] [place] [address] Commercial [id number] Family Dependent [id number] [facility] (2018) Health Maintenance Organization (HMO) [id number] Family Dependent [id number] SELF PAY O UNAVAILABLE S UNAVAILA BLE SELF PAY ONLY [id number] SP [id number] [facility] [id number] HU2 [id number] [facility] Commercial [id number] Family Dependent [id number] Problems, Conditions, and Diagnoses Code Display Name Description Problem Type Effective Dates Data Source(s) 848380311 Uncomplicated moderate persistent asthma Uncomplicated moderate persistent asthma Problem 12/30/2019 12:00:00 AM EDT MEDENT ([facility]) [id number] Gastro-esophageal reflux disease with es ophagitis Gastro-esophageal reflux disease with esophagitis Problem 12/30/2019 12:00:00 AM EDT M EDENT ([facility]) [id number] Psoriasis Psoriasis Problem 12/30/2019 12:00:00 AM ED T MEDENT ([facility]) F41.9 Anxiety Anxiety Problem 06/29/2019 12:00:00 AM ED T eCW1 ([facility]) F41.9 Anxiety Anxiety Problem 06/29/2019 12:00:00 AM ED T eCW1 ([facility]) J30.9 Allergic rhinitis Allergic rhinitis Problem 05/11/2019 12:00:00 AM EST eCW1 ([facility]) J30.9 Allergic rhinitis Allergic rhinitis Problem 05/11/2019 12:00:00 AM EST eCW1 ([facility]) Z34.80 care Supervision of other normal P roblem 03/15/2019 12:00:00 AM EST eCW1 ([facility]) Z34.80 care Supervision of other normal P roblem 03/15/2019 12:00:00 AM EST eCW1 ([facility]) J45.901 [id number] Exacerbation of asth ma, unspecified asthma severity, unspecified whether persistent Problem 02/18/2019 12:00:00 AM EST eC W1 ([facility]) J45.901 [id number] Exacerbation of asth ma, unspecified asthma severity, unspecified whether persistent Problem 02/18/2019 12:00:00 AM EST eC W1 ([facility]) Surgeries/Procedures Procedure Description Date Indications Data Source(s) Injection, medroxyprogesterone acetate for contraceptive use , 150 mg 02/25/2020 12:00:00 AM EST eCW1 ([facility]) URINE-NO MICRO 10/01/2019 12:00:00 AM EDT eCW1 ([facility]) Immunization: Boostrix 0.5mL IM (TDAP) 09/08/2019 12:0 0:00 AM EDT eCW1 ([facility]) Injection: RhoGAM 300mcg/1.5mL IM (Rho [D] Immune Globulin H uman) 08/25/2019 12:00:00 AM EDT eCW1 ([facility]) OB Visit 07/07/2019 12:00:00 AM EDT e CW1 ([facility]) Office Visit, Est Pt., Level 3 PC 03/23/2019 12:00:00 AM EST eCW1 ([facility]) STREP A ASSAY W/OPTIC 02/18/2019 12:00:00 AM EST eCW1 ([facility]) Albuterol, inhalation solution, fda-appr ronnie final product, non-compounded, administered through dme, unit dose, 1 mg 02/18/2019 12:00:00 AM EST eCW1 ([facility]) NEB/MDI RX INITIAL 02/18/2019 12:00:00 AM EST eCW1 ([facility]) Results ID Date Data Source [id number] 04/14/2020 11:16:00 [place] [address] PHONE: [phone] FAX: [phone] Name .................. : DIMPLE Massey Acct Number.................. : [id number] ROOM. ................. : Number ................... : [id number] Stay type ............. : O/P Discharge Date......... ... : 04/12/20 Admit Date ......... : 04/12/20 Admit Phys .................... : [facility] Date of ....... : 1985 Family Phys ................... : NONSTAFF Phone .................. : [phone] Age ................................ : 34 Film# .................. .:[id number] Sex ................................. : F Unsigned transcriptions are preliminary reports and do not represent a medical or legal document BREAST RIGHT [id number] COMPLETE:04/12/20 20:00 ADB 3090 (TEST REASON: PAIN [...] By Silver Hawk M.D. , 04/14/20 11:16, [facility] Transcribe Initials: ROSEMARIE , Transcribe Date: 04/12/20 22:13, Dictation Date: Copy for: FAITH MCPHERSON via fax Copy for: [address] [place] [address] Page 1 of 1 Name Value Range Interpretation Code Description Data Agnieszka rce(s) Supporting Document(s) ID Date Data Source [id number] 04/14/2020 11:16:00 AM [facility] [address] [place] [address] PHONE: [phone] FAX: [phone] Name .................. : DIMPLE Massey Acct Number.................. : [id number] ROOM. ................. : MR Number ................... : [id number] Stay type ............. : O/P Discharge Date......... ... : 04/12/20 Admit Date ......... : 04/12/20 Admit Phys .................... : [facility] Date of ....... : 1985 Family Phys ................... : NONSTAFF Phone .................. : [phone] Age ................................ : 34 Film# .................. .:[id number] Sex ................................. : F Unsigned transcriptions are preliminary reports and do not represent a medical or legal document BREAST LEFT [id number] COMPLETE:04/12/20 20:00 ADB 3089 (TEST REASON: DRAINAGE [...] By Silver Hawk M.D. , 04/14/20 11:16, [facility] Transcribe Initials: Dawit [place] anscribe Date: 04/12/20 22:11, Dictation Date: Copy for: FAITH MCPHERSON via fax Copy for: 710 MED REC Page 1 of 1 Name Value Range Interpretation Code Description Data Agnieszka rce(s) Supporting Document(s) ID Date Data Source [id number] 04/12/2020 04:02:00 PM EST [facility] ([facility]) Name Value Range Interpretation Code Description Data Agnieszka rce(s) Supporting Document(s) Bacteria identified in Wound shallow by Aerobe culture Laborator y test result Normal (applies to non-numeric results) [facility] ([facility]) <content>FULL REPORT IN LAB NOTES (eCW a [...] STREP CULTURE 10/06/2019 05:44:43 AM EDT eCW1 ([facility]) Name Value Range Interpretation Code Description Data Agnieszka rce(s) Supporting Document(s) GROUP B STREP CULTURE eCW1 ([facility]) ID Date Data Source [id number] 07/30/2019 11:28:00 AM EDT [facility] ([facility], ) Name Value Range Interpretation Code Description Data Agnieszka rce(s) Supporting Document(s) Glucose tolerance 3 hours gestational panel - Serum or Plasma Laboratory test result [facility] ([facility]) <content>GTT3 GESTATIONA 3HR GLU 3 HR GL U from 0515:[id number].</content>
<content>note:<nlbl:demographic_changed></content><b GESTATIONA 3HR GLU 3 HR GLU from 0515:[id number].</content>
<content></content> Laboratory test finding (navigational concept) 57 mg/dL Normal (applies to non-numeric results) [facility] ([facility], ) ID Date Data Source [id number] 07/30/2019 11:28:00 AM EDT [facility]) Name Value Range Interpretation Code Description Data Agnieszka rce(s) Supporting Document(s) Laboratory test finding (navigational concept) 57 mg/dL Normal (applies to non-numeric results) [facility] ([facility]) ID Date Data Source [id number] 07/30/2019 10:26:00 AM EDT [facility]) Name Value Range Interpretation Code Description Data Agnieszka rce(s) Supporting Document(s) Glucose [Moles/volume] in Serum or Plasma --[address] XXX challenge Laboratory test result [facility] ([facility]) <content>GTT3 GESTATIONA 2HR GLU 2 HR GL U from 0515:[id number].</content>
<content>note:<nlbl:demographic_changed></content><b GESTATIONA 2HR GLU 2 HR GLU from 0515:[id number].</content>
<content></content> 2 HR Glucose 114 mg/dL Normal (applies to non-numeric res ults) [facility]) ID Date Data Source [id number] 07/30/2019 10:26:00 AM EDT [facility] ([facility]) Name Value Range Interpretation Code Description Data Agnieszka rce(s) Supporting Document(s) Glucose [Moles/volume] in Serum or Plasma --[address] XXX challenge 114 mg/dL Normal (applies to non-numeric results) [facility] ([facility]) <content>GTT3 GESTATIONA 2HR GLU 2 HR GL U from 0515:[id number].</content>
<content>note:<nlbl:demographic_changed></content><b GESTATIONA 2HR GLU 2 HR GLU from 0515:[id number].</content>
<content></content> ID Date Data Source [id number] 07/30/2019 09:27:00 AM EDT [facility] ([facility]) Name Value Range Interpretation Code Description Data Agnieszka rce(s) Supporting Document(s) Glucose [Mass/volume] in Serum or Plasma --1 hour post 50 g glucose PO Laboratory test result [facility] ([facility]) <content>GTT3 GESTATIONA 1HR GLU 1 HR GL UCOSE from 514:[id number].</content>
<content>note:<nlbl:demographic_changed></content><b GESTATIONA 1HR GLU 1 HR GLUCOSE from 514:[id number].</content>
<content></content> 1 HR Glucose 167 mg/dL Normal (applies to non-numeric res ults) [facility] ([facility]) ID Date Data Source [id number] 07/30/2019 09:27:00 AM EDT [facility]) Name Value Range Interpretation Code Description Data Agnieszka rce(s) Supporting Document(s) 1 HR Glucose 167 mg/dL Normal (applies to non-numeric res ults) [facility] ([facility]) ID Date Data Source [id number] 07/30/2019 08:25:00 AM EDT [facility] ([facility]) Name Value Range Interpretation Code Description Data Agnieszka rce(s) Supporting Document(s) Glucose [Mass/volume] in Serum or Plasma --pre 75 g glucose PO 8 5 mg/dL Normal (applies to non-numeric results) [facility] ([facility]) <content>GTT3 GESTATIONA FASTING FAST GL U from 05:[id number].</content>
<content>note:<nlbl:demographic_changed></content><b GESTATIONA FASTING FAST GLU from 514:[id number].</content>
<content></content> ID Date Data Source [id number] 07/30/2019 08:25:00 AM EDT [facility]) Name Value Range Interpretation Code Description Data Agnieszka rce(s) Supporting Document(s) Glucose, Fasting 85 mg/dL Normal (applies to non-numeric results) [facility]) ID Date Data Source [id number] 07/30/2019 08:20:00 AM EDT [facility]) Name Value Range Interpretation Code Description Data Agnieszka rce(s) Supporting Document(s) QuantiFERON TB1 Ag Value 0.02 IU/ml Normal (applies to non -numeric results) [facility] ([facility]) QuantiFERON Criteria Laboratory test result Norm al (applies to non-numeric results) [facility]) . The QuantiFERON-TB Gold Plus result is determined by subtracting the Nil value from either TB antigen (Ag) tube. The mitogen tube serves as a control for the test. QuantiFERON TB2 Ag Value 0.01 IU/ml Normal (applies to non -numeric results) [facility] ([facility]) QuantiFERON-TB Gold Plus Laboratory test result Normal (applies to non-numeric results) [facility]) . The specimen received for QuantiFERON testing was incubated by the ordering institution. Specific procedures outlined in our Directory of Services and in the package insert for the QuantiFERON Gold (In Tube) test must be followed to enable for proper stimulation of cells for the production of interferon gamma. Performed at: RN - [facility] [address] [id number] Oil Analyst: Lalitha Almendarez MD, Phone: [phone] QuantiFERON Nil Value 0.02 IU/ml Normal (applies to non-nu meric results) [facility] ([facility]) QuantiFERON Mitogen Value Laboratory test result Normal (applies to non- numeric results) [facility]) ID Date Data Source [id number] 07/30/2019 08:20:00 AM EDT [facility]) Name Value Range Interpretation Code Description Data [facility] rce(s) Supporting Document(s) Creatinine For GFR 0.51 mg/dL 0.55-1.30 Below low normal [facility] ([facility]) Blood Urea Nitrogen 4 mg/dL 7-18 Below low normal [facility] ([facility]) Glucose, Fasting 84 mg/dL 70-100 Normal (applies to non-numeric results) [facility] ([facility]) Sodium Level 140 meq/L 136-145 Normal (applies to non-numeric res ults) [facility] ([facility]) Glomerular Filtration Rate Laboratory test result Normal (applies to non- numeric results) [facility] ([facility]) <content>Units are mL/min/1.73 m2</content>
<content></content>
<content>Chronic Kidney Disease Staging per NKF:</content>
<content></content>
<content>Stage I & II GFR >=60 Normal to Mildly Decreased</content>
<content>Stage III GFR 30- 59 Moderately Decreased</content>
<content>Stage IV GFR 15-29 Severely Decreased</content>
<content>Stage V GFR <15 Very Little GFR Left</content>
<content>ESRD GFR <15 on PUBLICATIONS EDITOR</content>
<content></content> Potassium Serum 4.0 meq/L 3.5-5.1 Normal (applies to non-numeric results) [facility] ([facility]) Anion Gap 8 meq/L 8-16 Normal (applies to non-numeric resul ts) [facility] ([facility]) Carbon Dioxide Level 25 meq/L 21-32 Normal (applies to non-num roxie results) [facility] ([facility]) Chloride Level 107 meq/L 98-107 Normal (applies to non-numeric r esults) [facility] ([facility]) Phosphorus Level 2.9 mg/dL 2.5-4.9 Normal (applies to non-numeric results) [facility] ([facility]) Calcium Level 8.0 mg/dL 8.5-10.1 Below low normal [facility] T ([facility]) ID Date Data Source [id number] 07/30/2019 08:20:00 AM EDT [facility] ([facility]) Name Value Range Interpretation Code Description Data Agnieszka rce(s) Supporting Document(s) Alkaline Phosphatase 63 U/L 45-117 Normal (applies to non-num roxie results) [facility] ([facility]) Ast/Sgot 10 U/L 7-37 Normal (applies to non-numeric resul ts) [facility] ([facility]) Alt/SGPT 13 U/L 12-78 Normal (applies to non-numeric resul ts) [facility] ([facility]) Total Protein 6.3 GM/DL 6.4-8.2 Below low normal [facility] T ([facility]) Albumin 2.7 GM/DL 3.2-5.2 Below low normal [facility] ( [facility]) Bilirubin,Total 0.2 mg/dL 0.2-1.0 Normal (applies to non-numeric results) [facility] ([facility]) Bilirubin,Direct Laboratory test result 0.0-0.2 Normal ( applies to non-numeric results) [facility] ([facility]) Albumin/Globulin Ratio 0.8 1.2-2.2 Below low normal [facility] ([facility]) ID Date Data Source [id number] 07/30/2019 08:20:00 AM EDT [facility] ([facility]) Name Value Range Interpretation Code Description Data Agnieszka rce(s) Supporting Document(s) Red Blood Count 3.96 10 4.00-5.40 Below low normal [facility] ([facility]) White Blood Count 10.2 10 4.0-10.0 Above high normal [facility] ([facility]) Hemoglobin 11.9 g/dL 12.0-15.5 Below low normal [facility] ( [facility]) Hematocrit 37.0 % 36.0-47.0 Normal (applies to non-numeric resul ts) [facility] ([facility]) Mean Corpuscular Volume 93.4 fl 80.0-96.0 Normal ( applies to non-numeric results) [facility] ([facility]) Mean Corpuscular Hemoglobin 30.1 pg 27.0-33.0 Norm al (applies to non-numeric results) [facility] ([facility]) Red Cell Distribution Width 13.1 % 11.5-14.5 Norm al (applies to non-numeric results) [facility] ([facility]) Mean Corpuscular HGB Conc 32.2 g/dL 32.0-36.5 Normal (applies to non-numeric results) [facility] ([facility]) Platelet Count, Automated 301 10 150-450 Normal (applies to non-numeric results) [facility] ([facility]) Neutrophils % 64.9 % 36.0-66.0 Normal (applies to non-numeric re sults) [facility] ([facility]) Lymph % 20.4 % 24.0-44.0 Below low normal [facility] ( [facility]) [place] % 7.2 % 0.0-5.0 Above high normal [facility] ([facility]) Eos % 6.3 % 0.0-3.0 Above high normal [facility] ([facility]) Baso % 0.5 % 0.0-1.0 Normal (applies to non-numeric resul ts) [facility] ([facility]) Immature Granulocyte % 0.7 % 0-3.0 Normal (applies to non-n umeric results) [facility] ([facility]) Neutrophils # 6.6 10 1.5-8.5 Normal (applies to non-numeric re sults) [facility] ([facility]) [place] # 0.7 10 0.0-0.8 Normal (applies to non-numeric resul ts) [facility] ([facility]) Nucleated Red Blood Cell % 0.0 % 0-0 Normal (applies to n on-numeric results) [facility] ([facility]) Lymph # 2.1 10 1.5-5.0 Normal (applies to non-numeric resul ts) [facility] ([facility]) Baso # 0.1 10 0.0-0.2 Normal (applies to non-numeric resul ts) [facility] ([facility]) Eos # 0.6 10 0.0-0.5 Above high normal [facility] ([facility]) ID Date Data Source [id number] 07/30/2019 08:15:00 AM EDT [facility] ([facility] ) Name Value Range Interpretation Code Description Data Agnieszka rce(s) Supporting Document(s) Glucose, Fasting 85 mg/dL Normal (applies to non-numeric results) [facility] ([facility], ) 1 HR Glucose 167 mg/dL Normal (applies to non-numeric res ults) [facility] ([facility]) Laboratory test finding (navigational concept) 57 mg/dL Normal (applies to non-numeric results) [facility] ([facility]) 2 HR Glucose 114 mg/dL Normal (applies to non-numeric res ults) [facility] ([facility]) ID Date Data Source [id number] 07/30/2019 08:15:00 AM EDT [facility]) Name Value Range Interpretation Code Description Data Agnieszka rce(s) Supporting Document(s) Glucose, Fasting 85 mg/dL Normal (applies to non-numeric results) [facility]) 1 HR Glucose 167 mg/dL Normal (applies to non-numeric res ults) [facility] ([facility]) Laboratory test finding (navigational concept) 57 mg/dL Normal (applies to non-numeric results) [facility]) 2 HR Glucose 114 mg/dL Normal (applies to non-numeric res ults) [facility]) ID Date Data Source RUBELLA IMMUNE STATUS IgG 03/29/2019 12:00:00 AM EST eCW1 ([facility]) Name Value Range Interpretation Code Description Data Agnieszka rce(s) Supporting Document(s) IMMUNE IMMUNE RUBELLA IgG QUALITATIVE eCW1 ( [facility]) ID Date Data Source SYPHILIS ANTIBODY (RPR SCREEN) 03/29/2019 12:00:00 AM EST eC W1 ([facility]) Name Value Range Interpretation Code Description Data Agnieszka rce(s) Supporting Document(s) NONREACTIVE NONREACTIVE SYPHILIS eCW1 ([facility]) ID Date Data Source HEPATITIS C ANTIBODY INDEX 03/29/2019 12:00:00 AM EST eCW1 ( [facility]) Name Value Range Interpretation Code Description Data Agnieszka rce(s) Supporting Document(s) 0.0 <0.8 HEPATITIS C VIRUS PRAVIN INDEX eC W1 ([facility]) ID Date Data Source CHLAMYDIA & GC DNA AMPLIFICAT 03/29/2019 12:00:00 AM EST eCW 1 ([facility]) Name Value Range Interpretation Code Description Data Agnieszka rce(s) Supporting Document(s) Chlamydia trachomatis rRNA [Presence] in Unspecified specimen by Probe and target amplification method NEGATIVE NEGATIVE CHLAMYDIA DNA AMPLIFICATION eCW1 ([facility]) ID Date Data Source Type and Screen Prenatal1 03/29/2019 12:00:00 AM EST eCW1 ([facility]) Name Value Range Interpretation Code Description Data Agnieszka rce(s) Supporting Document(s) POSITIVE AB SCREEN PNP1 GEL (VIS) eCW1 ([facility]) ID Date Data Source [id number] 03/07/2019 11:45:00 AM EST [facility] ([facility]) Name Value Range Interpretation Code Description Data Agnieszka rce(s) Supporting Document(s) Reflex Urine Culture Laboratory test result Norm al (applies to non-numeric results) [facility] ([facility]) FULL REPORT IN LAB NOTES (eCW and [facility] ). NO GROWTH ID Date Data Source [id number] 03/07/2019 11:45:00 AM EST [facility] ([facility]) Name Value Range Interpretation Code Description Data Agnieszka rce(s) Supporting Document(s) Color, Urine RFX Laboratory test result Normal ( applies to non-numeric results) [facility] ([facility]) Appearance, Urine RFX Laboratory test result Nor mal (applies to non-numeric results) [facility] ([facility]) Specific [place] Ur Auto RFX 1.005 1.002-1.035 Nor mal (applies to non-numeric results) [facility] ([facility]) Protein, Urine Auto RFX Laboratory test result N ormal (applies to non-numeric results) [facility] ([facility]) PH,Urine RFX 7.0 units 5.0-9.0 Normal (applies to non-numeric res ults) [facility] ([facility]) Ketone, Urine Auto RFX Laboratory test result No rmal (applies to non-numeric results) [facility] ([facility]) Glucose, Urine (Ua) Auto RFX Laboratory test result Normal (applies to non- numeric results) [facility] ([facility]) Urobilinogen, Urine Auto RFX 0.2 mg/dL 0.0-2.0 Nor mal (applies to non-numeric results) [facility] ([facility]) Bilirubin, Urine Auto RFX Laboratory test result Normal (applies to non- numeric results) [facility] ([facility]) Nitrite, Urine Auto RFX Laboratory test result N ormal (applies to non-numeric results) [facility] ([facility]) Leukocyte Esterase Ur Auto RFX Laboratory test result Abov e high normal [facility] ([facility]) Blood, Urine Blood RFX Laboratory test result Above high n ormal [facility] ([facility]) RBC, Urine Auto RFX 34 /HPF 0-3 Above high normal [facility] ([facility]) WBC, Urine Auto RFX 5 /HPF 0-3 Above high normal [facility] ([facility]) Hyaline Cast, Urine Auto RFX 0 /LPF 0-1 Normal (appl ies to non-numeric results) [facility] ([facility]) Squam Epithelial Cell Ur Aurfx 10 /HPF 0-6 N ormal (applies to non-numeric results) [facility] ([facility]) Bacteria, Urine Auto RFX Laboratory test result Above high normal [facility] ([facility]) ID Date Data Source [id number] 03/07/2019 10:51:00 AM EST [facility] ([facility]) Name Value Range Interpretation Code Description Data Agnieszka rce(s) Supporting Document(s) Choriogonadotropin.beta subunit [Moles/volume] in Serum or P lasma 84211 MIU/ML Normal (applies to non-numeric results) [facility] ([facility]) GESTATIONAL AGE APPROXIMATE HCG RANGE (MIU/ML) - [...] monitoring the treatment of cancer patients. [employer] methodology. ID Date Data Source [id number] 03/03/2019 07:47:00 PM EST [facility] ([facility]) Name Value Range Interpretation Code Description Data Agnieszka rce(s) Supporting Document(s) Rh immune globulin screen [interpretation] Laboratory test result [facility] ([facility]) TRANSFUSED PRODUCT: RHOGAM COUNT: 1 ID Date Data Source [id number] 03/03/2019 07:15:00 PM EST [facility] ([facility]) Name Value Range Interpretation Code Description Data Agnieszka rce(s) Supporting Document(s) Wet Prep Laboratory test result Normal (applies to non-n umeric results) [facility] ([facility]) FEW EPITHELIAL CELLS PRESENT FEW WBC FEW LONG RODS PRESENT ID Date Data Source [id number] 03/03/2019 06:50:00 PM EST [facility] ([facility]) Name Value Range Interpretation Code Description Data Agnieszka rce(s) Supporting Document(s) Chlamydia Dna Amplification Laboratory test result Normal (applies to non- numeric results) [facility] ([facility]) A negative test result does not exclude the possibility of infection because test results may be affected by improper specimen collection, technical error, specimen mix-up, concurrent antibiotic therapy, or the number of organisms in the specimen which may be below the sensitivity of the test. GC Dna Amplification Laboratory test result Norm al (applies to non-numeric results) [facility] ([facility]) A negative test result does not exclude the possibility of infection because test results may be affected by improper specimen collection, technical error, specimen mix-up, concurrent antibiotic therapy, or the number of organisms in the specimen which may be below the sensitivity of the test. ID Date Data Source [id number] 03/03/2019 05:25:00 PM EST [facility] ([facility]) Name Value Range Interpretation Code Description Data Agnieszka rce(s) Supporting Document(s) Blood Type Laboratory test result Normal (applies to non-n umeric results) [facility] ([facility]) AB Screen (Indirect Mekhi)Vis Laboratory test result Normal (applies to non- numeric results) [facility] ([facility]) ID Date Data Source [id number] 03/03/2019 05:24:00 PM EST [facility] ([facility]) Name Value Range Interpretation Code Description Data Agnieszka rce(s) Supporting Document(s) Choriogonadotropin.beta subunit [Moles/volume] in Serum or Plasm a 4765 MIU/ML Normal (applies to non-numeric results) [facility] [facility] GESTATIONAL AGE APPROXIMATE HCG RANGE (MIU/ML) - [...] monitoring the treatment of cancer patients. Siemens [employer]onne methodology. ID Date Data Source [id number] 03/03/2019 05:24:00 PM EST [facility] ([facility]) Name Value Range Interpretation Code Description Data Agnieszka rce(s) Supporting Document(s) Appearance, Urine RFX Laboratory test result Nor mal (applies to non-numeric results) [facility] ([facility]) Color, Urine RFX Laboratory test result Normal ( applies to non-numeric results) [facility] ([facility]) Protein, Urine Auto RFX Laboratory test result N ormal (applies to non-numeric results) [facility] ([facility]) PH,Urine RFX 6.0 units 5.0-9.0 Normal (applies to non-numeric res ults) [facility] ([facility]) Specific [place] Ur Auto RFX 1.006 1.002-1.035 Nor mal (applies to non-numeric results) [facility] ([facility]) Urobilinogen, Urine Auto RFX 0.2 mg/dL 0.0-2.0 Nor mal (applies to non-numeric results) [facility] ([facility]) Ketone, Urine Auto RFX Laboratory test result No rmal (applies to non-numeric results) [facility] ([facility]) Glucose, Urine (Ua) Auto RFX Laboratory test result Normal (applies to non- numeric results) [facility] ([facility]) Leukocyte Esterase Ur Auto RFX Laboratory test result Normal (applies to non- numeric results) [facility] ([facility]) Nitrite, Urine Auto RFX Laboratory test result N ormal (applies to non-numeric results) [facility] ([facility]) Bilirubin, Urine Auto RFX Laboratory test result Normal (applies to non- numeric results) [facility] ([facility]) WBC, Urine Auto RFX 3 /HPF 0-3 Normal (applies to non-nume hailey results) [facility] ([facility]) RBC, Urine Auto RFX 2 /HPF 0-3 Normal (applies to non-nume hailey results) [facility] ([facility]) Blood, Urine Blood RFX Laboratory test result Above high n ormal [facility] ([facility]) Bacteria, Urine Auto RFX Laboratory test result Above high normal [facility] ([facility]) Transitional Epithelial AU RFX Laboratory test result Normal (applies to non- numeric results) [facility] ([facility]) Squam Epithelial Cell Ur Aurfx 7 /HPF 0-6 N ormal (applies to non-numeric results) [facility] ([facility]) Hyaline Cast, Urine Auto RFX 0 /LPF 0-1 Normal (appl ies to non-numeric results) [facility] ([facility]) ID Date Data Source [id number] 03/03/2019 05:24:00 PM EST [facility] ([facility]) Name Value Range Interpretation Code Description Data Agnieszka rce(s) Supporting Document(s) Hemoglobin 13.8 g/dL 12.0-15.5 Normal (applies to non-numeric resul ts) [facility] ([facility]) Red Blood Count 4.67 10 4.00-5.40 Normal (applies to non-numeric results) [facility] ([facility]) White Blood Count 10.3 10 4.0-10.0 Above high normal [facility] ([facility]) Hematocrit 42.7 % 36.0-47.0 Normal (applies to non-numeric resul ts) [facility] ([facility]) Mean Corpuscular Hemoglobin 29.6 pg 27.0-33.0 Norm al (applies to non-numeric results) [facility] ([facility]) Mean Corpuscular Volume 91.4 fl 80.0-96.0 Normal ( applies to non-numeric results) [facility] ([facility]) Mean Corpuscular HGB Conc 32.3 g/dL 32.0-36.5 Normal (applies to non-numeric results) [facility] ([facility]) Red Cell Distribution Width 12.3 % 11.5-14.5 Norm al (applies to non-numeric results) [facility] ([facility]) Platelet Count, Automated 401 10 150-450 Normal (applies to non-numeric results) [facility] ([facility]) Lymph % 24.7 % 24.0-44.0 Normal (applies to non-numeric resul ts) [facility] ([facility]) [place] % 8.2 % 0.0-5.0 Above high normal [facility] ([facility]) Neutrophils % 60.4 % 36.0-66.0 Normal (applies to non-numeric re sults) [facility] ([facility]) Baso % 0.9 % 0.0-1.0 Normal (applies to non-numeric resul ts) [facility] ([facility]) Eos % 5.5 % 0.0-3.0 Above high normal [facility] ([facility]) Immature Granulocyte % 0.3 % 0-3.0 Normal (applies to non-n umeric results) [facility] ([facility]) Lymph # 2.6 10 1.5-5.0 Normal (applies to non-numeric resul ts) [facility] ([facility]) Nucleated Red Blood Cell % 0.0 % 0-0 Normal (applies to n on-numeric results) [facility] ([facility]) Neutrophils # 6.2 10 1.5-8.5 Normal (applies to non-numeric re sults) [facility] ([facility]) Baso # 0.1 10 0.0-0.2 Normal (applies to non-numeric resul ts) [facility] ([facility]) [place] # 0.9 10 0.0-0.8 Above high normal [facility] ([facility]) Eos # 0.6 10 0.0-0.5 Above high normal [facility] ([facility]) ID Date Data Source GATS (NEGATIVE STREP SCREEN) 02/18/2019 12:00:00 AM EST eCW1 ([facility]) Name Value Range Interpretation Code Description Data Agnieszka rce(s) Supporting Document(s) FULL REPORT IN LAB NOTES ([facility]CW and [facility]). GATS CULTURE (NEG STREP SCR) eCW1 ([facility]) Procedure Social History Code Duration Value Status Description Data Source(s ) Smoking 10/08/2019 12:00:00 AM EDT Never Smoker completed Never S moker eCW1 ([facility]) Smoking 10/08/2019 12:00:00 AM EDT Never Smoker completed Never S moker eCW1 ([facility]) Smoking 10/08/2019 12:00:00 AM EDT Never Smoker completed Never S moker eCW1 ([facility]) Smoking 10/08/2019 12:00:00 AM EDT Never Smoker completed Never S moker eCW1 ([facility]) Smoking 10/08/2019 12:00:00 AM EDT Never Smoker completed Never S moker eCW1 ([facility]) Smoking 10/01/2019 12:00:00 AM EDT Never Smoker completed Never S moker eCW1 ([facility]) Smoking 08/31/2019 12:00:00 AM EDT Never Smoker completed Never S karen eCW1 ([facility]) Smoking 08/11/2019 12:00:00 AM EDT Never Smoker completed Never James jones eCW1 ([facility]) Vital Signs ID Date Data Source UNK Name Value Range Interpretation Code Description Data Source(s) [place] body weight 130 [lb_av] 130 [lb_av] [facility] ([facility]) Oxygen saturation in Arterial blood by Pulse oximetry 121 % 121 % [facility] ([facility]) Body temperature 99.8 [degF] 99.8 [degF] [facility] ([facility]) Respiratory rate 18 /min 18 /min [facility] ( [facility]) Heart rate 99 /min 99 /min [facility] ([facility]) Body mass index (BMI) [Ratio] 26.3 kg/m2 26.3 k g/m2 [facility] ([facility]) Body weight 163.00 [lb_av] 163.00 [lb_av] [facility] ([facility]) Body height 66 [in_i] 66 [in_i] [facility] ([facility]) 5'6" Diastolic blood pressure 87 mm[Hg] 87 mm[Hg] [facility] ([facility]) Systolic blood pressure 138 mm[Hg] 138 mm[Hg] [facility] [place] body weight 130 [lb_av] 130 [lb_av] [facility] ([facility]) Oxygen saturation in Arterial blood by Pulse oximetry 96 % 96 % [facility] ([facility]) Body temperature 98.9 [degF] 98.9 [degF] [facility] ([facility]) Respiratory rate 18 /min 18 /min [facility] ( [facility]) Heart rate 103 /min 103 /min [facility] ([facility]) Body mass index (BMI) [Ratio] 26.5 kg/m2 26.5 k g/m2 [facility] ([facility]) Body weight 164.00 [lb_av] 164.00 [lb_av] [facility] ([facility]) Body height 66 [in_i] 66 [in_i] [facility] ([facility]) 5'6" Diastolic blood pressure 64 mm[Hg] 64 mm[Hg] [facility] ([facility]) Systolic blood pressure 122 mm[Hg] 122 mm[Hg] M [facility] ([facility]) [place] body weight 130 [lb_av] 130 [lb_av] [facility] ([facility]) Oxygen saturation in Arterial blood by Pulse oximetry 99 % 99 % [facility] ([facility]) Body temperature 99.0 [degF] 99.0 [degF] [facility] ([facility]) Respiratory rate 18 /min 18 /min [facility] ( [facility]) Heart rate 99 /min 99 /min [facility] ([facility]) Body mass index (BMI) [Ratio] 26.9 kg/m2 26.9 k g/m2 [facility] ([facility]) Body weight 166.38 [lb_av] 166.38 [lb_av] [facility] ([facility]) Body height 66 [in_i] 66 [in_i] [facility] ([facility]) 5'6" Diastolic blood pressure 70 mm[Hg] 70 mm[Hg] [facility] ([facility]) Systolic blood pressure 112 mm[Hg] 112 mm[Hg] [facility] ([facility]) Body weight 73.483 kg 73.483 kg [facility] ([facility], ) [place] body weight 130 [lb_av] 130 [lb_av] [facility] ([facility], ) Body mass index (BMI) [Ratio] 26.1 kg/m2 26.1 k g/m2 [facility] ([facility], ) Body weight 162.00 [lb_av] 162.00 [lb_av] [facility] ([facility], ) Body height 66 [in_i] 66 [in_i] [facility] ([facility], ) 5'6" Diastolic blood pressure 60 mm[Hg] 60 mm[Hg] [facility] ([facility], ) Systolic blood pressure 120 mm[Hg] 120 mm[Hg] [facility] ([facility], ) [place] body weight 130 [lb_av] 130 [lb_av] [facility] ([facility]) Oxygen saturation in Arterial blood by Pulse oximetry 97 % 97 % [facility] ([facility]) Body temperature 99.1 [degF] 99.1 [degF] [facility] ([facility]) Respiratory rate 18 /min 18 /min [facility] ( [facility]) Heart rate 66 /min 66 /min [facility] ([facility]) Body mass index (BMI) [Ratio] 25.6 kg/m2 25.6 k g/m2 [facility] ([facility]) Body weight 158.38 [lb_av] 158.38 [lb_av] [facility] ([facility]) Body height 66 [in_i] 66 [in_i] [facility] 5'6" Diastolic blood pressure 68 mm[Hg] 68 mm[Hg] [facility] ([facility]) Systolic blood pressure 114 mm[Hg] 114 mm[Hg] M [facility] ([facility]) Diastolic blood pressure 70 mm[Hg] 70 mm[Hg] eCW1 ([facility]) Systolic blood pressure 108 mm[Hg] 108 mm[Hg] e CW1 ([facility]) Body mass index (BMI) [Ratio] 28.356 kg/m2 28.3 56 kg/m2 W1 ([facility]) Body height 65 [in_i] 65 [in_i] eCW1 (On license of [facility]) Body weight 170.4 [lb_av] 170.4 [lb_av] eCW1 ([facility]) Diastolic blood pressure 62 mm[Hg] 62 mm[Hg] eCW1 ([facility]) Systolic blood pressure 118 mm[Hg] 118 mm[Hg] e CW1 ([facility]) Body mass index (BMI) [Ratio] 29.122 kg/m2 29.1 22 kg/m2 [facility] ([facility]) Body height 65 [in_i] 65 [in_i] eCW1 (On license of [facility]) Body weight 175 [lb_av] 175 [lb_av] eCW1 ([facility]) Diastolic blood pressure 72 mm[Hg] 72 mm[Hg] eCW1 ([facility]) Systolic blood pressure 110 mm[Hg] 110 mm[Hg] e CW1 ([facility]) Body mass index (BMI) [Ratio] 29.587 kg/m2 29.5 87 kg/m2 eCW1 ([facility]) Body height 65 [in_i] 65 [in_i] eCW1 (On license of [facility]) Body weight 177.8 [lb_av] 177.8 [lb_av] eCW1 ([facility]) Diastolic blood pressure 64 mm[Hg] 64 mm[Hg] eCW1 ([facility]) Systolic blood pressure 116 mm[Hg] 116 mm[Hg] e CW1 ([facility]) Body mass index (BMI) [Ratio] 28.955 kg/m2 28.9 55 kg/m2 eCW1 ([facility]) Body height 65 [in_i] 65 [in_i] eCW1 (On license of [facility]) Body weight 174 [lb_av] 174 [lb_av] eCW1 ([facility]) Diastolic blood pressure 72 mm[Hg] 72 mm[Hg] eCW1 ([facility]) Systolic blood pressure 106 mm[Hg] 106 mm[Hg] e CW1 ([facility]) Body temperature 98.8 [degF] 98.8 [degF] eCW1 ( [facility]) Respiratory rate 18 /min 18 /min eCW1 ([facility]) Heart rate 104 /min 104 /min eCW1 ([facility]) Body mass index (BMI) [Ratio] 28.29 kg/m2 28.29 kg/m2 eCW1 ([facility]) Body height 65 [in_us] 65 [in_us] eCW1 (On license of [facility]) Body weight Measured 170 [lb_av] 170 [lb_av] eC W1 ([facility]) Diastolic blood pressure 78 mm[Hg] 78 mm[Hg] eCW1 ([facility]) Systolic blood pressure 112 mm[Hg] 112 mm[Hg] e CW1 ([facility]) Body mass index (BMI) [Ratio] 28.456 kg/m2 28.4 56 kg/m2 eCW1 ([facility]) Body height 65 [in_i] 65 [in_i] eCW1 (On license of [facility]) Body weight 171 [lb_av] 171 [lb_av] eCW1 ([facility]) Diastolic blood pressure 68 mm[Hg] 68 mm[Hg] eCW1 ([facility]) Systolic blood pressure 118 mm[Hg] 118 mm[Hg] e CW1 ([facility]) Body mass index (BMI) [Ratio] 28.19 kg/m2 28.19 kg/m2 eCW1 ([facility]) Body height 65 [in_us] 65 [in_us] eCW1 (On license of [facility]) Body weight Measured 169.4 [lb_av] 169.4 [lb_av ] eCW1 ([facility]) Diastolic blood pressure 78 mm[Hg] 78 mm[Hg] eCW1 ([facility]) Systolic blood pressure 122 mm[Hg] 122 mm[Hg] e CW1 ([facility]) Body mass index (BMI) [Ratio] 26.759 kg/m2 26.7 59 kg/m2 eCW1 ([facility]) Body height 65 [in_us] 65 [in_us] eCW1 (On license of [facility]) Body weight Measured 160.8 [lb_av] 160.8 [lb_av ] eCW1 ([facility]) Diastolic blood pressure 80 mm[Hg] 80 mm[Hg] eCW1 ([facility]) Systolic blood pressure 119 mm[Hg] 119 mm[Hg] e CW1 ([facility]) Body temperature 97.8 [degF] 97.8 [degF] eCW1 ( [facility]) Respiratory rate 18 /min 18 /min eCW1 ([facility]) Heart rate 103 /min 103 /min eCW1 ([facility]) Body mass index (BMI) [Ratio] 27.45 kg/m2 27.45 kg/m2 eCW1 ([facility]) Body height 65 [in_us] 65 [in_us] eCW1 (On license of [facility]) Body weight Measured 165 [lb_av] 165 [lb_av] eC W1 ([facility]) Body height 65 [in_us] 65 [in_us] eCW1 (On license of [facility]) Body weight Measured 158.4 [lb_av] 158.4 [lb_av ] eCW1 ([facility]) Diastolic blood pressure 74 mm[Hg] 74 mm[Hg] eCW1 ([facility]) Systolic blood pressure 112 mm[Hg] 112 mm[Hg] e CW1 ([facility]) Body mass index (BMI) [Ratio] 26.359 kg/m2 26.3 59 kg/m2 eCW1 ([facility]) Diastolic blood pressure 79 mm[Hg] 79 mm[Hg] eCW1 ([facility]) Systolic blood pressure 113 mm[Hg] 113 mm[Hg] e CW1 ([facility]) Body temperature [degF] eCW1 ([facility]) Respiratory rate 16 /min 16 /min eCW1 ([facility]) Heart rate 99 /min 99 /min eCW1 ([facility]) Body mass index (BMI) [Ratio] 26.46 kg/m2 26.46 kg/m2 eCW1 ([facility]) Body height 65 [in_us] 65 [in_us] eCW1 (On license of [facility]) Body weight Measured 159 [lb_av] 159 [lb_av] eC W1 ([facility]) Diastolic blood pressure 70 mm[Hg] 70 mm[Hg] eCW1 ([facility]) Systolic blood pressure 120 mm[Hg] 120 mm[Hg] e CW1 ([facility]) Body mass index (BMI) [Ratio] 26.22 kg/m2 26.22 kg/m2 eCW1 ([facility]) Body height 65 [in_us] 65 [in_us] eCW1 (On license of [facility]) Body weight Measured 157.6 [lb_av] 157.6 [lb_av ] eCW1 ([facility]) Diastolic blood pressure 76 mm[Hg] 76 mm[Hg] eCW1 ([facility]) Systolic blood pressure 126 mm[Hg] 126 mm[Hg] e CW1 ([facility]) Body mass index (BMI) [Ratio] 26.46 kg/m2 26.46 kg/m2 eCW1 ([facility]) Body height 65 [in_us] 65 [in_us] eCW1 (On license of [facility]) Body weight Measured 159 [lb_av] 159 [lb_av] eC W1 ([facility]) Diastolic blood pressure 85 mm[Hg] 85 mm[Hg] eCW1 ([facility]) Systolic blood pressure 121 mm[Hg] 121 mm[Hg] e CW1 ([facility]) Body temperature 98.7 [degF] 98.7 [degF] eCW1 ( [facility]) Respiratory rate 18 /min 18 /min eCW1 ([facility]) Heart rate 98 /min 98 /min eCW1 ([facility]) Body mass index (BMI) [Ratio] 26.12 kg/m2 26.12 kg/m2 eCW1 ([facility]) Body height 65 [in_us] 65 [in_us] eCW1 (On license of [facility]) Body weight Measured 157 [lb_av] 157 [lb_av] eC W1 ([facility]) Patient Treatment Plan of Care Planned Activity Planned Date Details Description Data Source (s) buspirone hydrochloride 5 MG Oral Tablet 06/29/2019 12:00:00 AM EDT eCW1 ([facility]) Sertraline 25 MG Oral Tablet [Zoloft] 06/29/2019 12:00:00 AM EDT eCW1 ([facility]) Amoxicillin 875 MG / Clavulanate 125 MG Oral Tablet 01/27/20 20 12:00:00 AM EST eCW1 ([facility]) Vitamin 27-0.8 MG 03/23/2019 12:00:00 AM EST eCW1 ([facility]) Vitamin 27-0.8 MG 03/23/2019 12:00:00 AM EST eCW1 ([facility]) Fluoxetine 20 MG Oral Capsule [Prozac] 03/23/2019 12:00:00 AM EST eCW1 ([facility]) Vitamin 27-0.8 MG 03/23/2019 12:00:00 AM EST eCW1 ([facility]) Albuterol Sulfate HFA 108 (90 Base) MCG/ACT 02/18/2019 12:00:00 AM EST eCW1 ([facility]) Ondansetron 4 MG Disintegrating Oral Tablet 02/18/2019 12:00:00 AM EST eCW1 ([facility]) 12 HR dextromethorphan polistirex 6 MG/ML Extended Rel ease Suspension [Delsym] 02/18/2019 12:00:00 AM EST eCW1 (On license of [facility]) Sudafed 30 MG 02/18/2019 12:00:00 AM EST eCW1 ([facility]) Flonase 50 MCG/ACT 02/18/2019 12:00:00 AM EST eCW1 ([facility]) Prednisone 20 MG Oral Tablet 02/18/2019 12:00:00 AM EST eCW1 ([facility]) Albuterol 0.83 MG/ML Inhalant Solution 02/18/2019 12:00:00 AM EST eCW1 ([facility])
[2020-04-16] MEDS ORDERED: HYDR-3713 PO (22:00)
[2020-04-16] MEDS ORDERED: NORCO 5/325MG TABLET (BULK FOR ED) PO ONE (22:00)
[2020-04-16 22:13] VITALS: BP 141/71
== END 2020-04-16 22:14 | disposition home or self-care (01) ==
LOC: M ED 18:58
DX: N64.4 Mastodynia (principal); S20.159A Superficial foreign body of breast, unspecified breast, initial encounter; X58.XXXA Exposure to other specified factors, initial encounter; Y92.9 Unspecified place or not applicable; Y93.9 Activity, unspecified; Y99.9 Unspecified external cause status; J45.909 Unspecified asthma, uncomplicated; Z86.14 Personal history of Methicillin resistant Staphylococcus aureus infection; Z79.899 Other long term (current) drug therapy

== ENCOUNTER 2020-04-19 15:28 | Observation (INO) | payer OTHER ==
[~2020-04-19] VITALS: Ht 167.6 cm; Wt 73.2 kg
[~2020-04-19 15:28] MED LIST changes: +BACT800T5 PO; +CLINDAMYCIN 900 MG in IV 1 EA IV ONE; +HEPARIN SOD (PORCINE) 5000UNITS/ML 1ML VIAL/SYRINGE SQ ONE; +HYDR-3713 PO; +LIDOCAINE 1% MDV 20ML VIAL SQ PRN; +MONT10TA10; -MONT5TAB2; +NS 1,000 ML IV SCH; +VANCOMYCIN HCL 1,000 MG, VIAL MATE ADAPTER 1 EACH in D5W 250 ML IV SCH
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
--- OUTSIDE RECORDS SUMMARY | 2020-04-19 15:33 | CCD ---
Demographics Address [address] [place] [address] Preferred Language Cymraes Marital Status Protestant Affiliation NONE Race White Ethnic Group Not or Author Author [facility] Organization [facility] Address Unknown Phone Unavailable Care Team Providers Care [place] Utility Worker Name Role Phone NON-STAFF, PHYSICIAN Unavailable Unavailable [...] is protected by Article 27-F of the [facility] Public Health law. If you continue you may have access to information: Regarding HIV / AIDS; Provided by facilities licensed or operated by the [facility] Office of Mental Health; or Provided by the [facility] Office for People With Developmental Disabilities. If such information is present, then the following [facility] mandated warning applies: This information has been [...] law may result in a fine or group home sentence or both. A general authorization for the release of medical or other information is NOT sufficient authorization for further disc losure. Allergies and Adverse Reactions Type Description Substance Reaction Status Data Source(s ) aspirin Aspirin Aspirin Unknown Active eCW1 ([facility]) Family History Family Member Name Family Member Gender Family Member Status Date o f Status Description Data Source(s) Unknown Female Problem MEDENT ([facility]) Unknown Male Problem MEDENT ([facility]) Unknown Unknown Problem MEDENT ([facility] Encounters Encounter Providers Location Date Indications Data Source(s ) [place] [address] [facility] [address] 04/17/2020 12:00:00 AM EST eCW1 ([facility]) [place] [address] [facility] [address] 04/13/2020 12:00:00 AM EST eCW1 ([facility]) Outpatient Attender: [place] Chavessuant: PHYSICIAN ALEJANDRO N-STAFF 04/12/2020 04:52:00 PM EST - 04/12/2020 05:52:00 PM EST [facility] Outpatient Attender: Ky RODRIGUEZ [facility] 04/12/2020 02:30:00 PM EST MEDENT ([facility]) ( [place]) enter Nurse Visit [address] [place] [address] 02/25/2020 12:00:00 AM EST eCW1 ([facility]) Outpatient Attender: Ky RODRIGUEZ [facility] 02/18/2020 12:40:00 PM EST MEDENT ([facility]) Outpatient Attender: Ky RODRIGUEZ [facility] 01/31/2020 12:30:00 PM EST MEDENT ([facility]) Outpatient Attender: Ky RODRIGUEZ [facility] 12/30/2019 01:00:00 PM EDT MEDENT ([facility]) ( ESTOB) WCenter Est OB [address] [place] [address] 10/01/2019 12:00:00 AM EDT eCW1 ([facility]) Unknown [address] [facility] [address] 09/30/2019 12:00:00 AM EDT eCW1 ([facility]) ( ESTOB) WCenter Est OB [address] [place] [address] 09/23/2019 12:00:00 AM EDT eCW1 ([facility]) (WC ESTOB) WCenter Est OB [address] [place] [address] 09/08/2019 12:00:00 AM EDT eCW1 ([facility]) [facility] [address] [place] [address] 08/26/2019 12:00:00 AM EDT eCW1 ([facility]) (WC ESTOB) WCenter Est OB [address] [place] [address] 08/25/2019 12:00:00 AM EDT eCW1 ([facility]) Outpatient 08/16/2019 10:35:00 AM EDT [facility] [address] [place] [address] 08/11/2019 12:00:00 AM EDT eCW1 ([facility]) (WC ESTOB) WCenter Est OB [address] [place] [address] 08/04/2019 12:00:00 AM EDT eCW1 ([facility]) [facility] [address] [place] [address] 07/27/2019 12:00:00 AM EDT eCW1 ([facility]) [facility] [address] [place] [address] 07/27/2019 12:00:00 AM EDT eCW1 ([facility]) [facility] [address] [place] [address] 07/07/2019 12:00:00 AM EDT eCW1 ([facility]) [facility] [address] [place] [address] 07/02/2019 12:00:00 AM EDT eCW1 ([facility]) [facility] [address] [place] [address] 06/29/2019 12:00:00 AM EDT eCW1 ([facility]) [facility] [address] [place] [address] 06/21/2019 12:00:00 AM EDT eCW1 ([facility]) [facility] [address] [place] [address] 06/04/2019 12:00:00 AM EDT eCW1 ([facility]) [facility] Women Center [address] [place] [address] 06/04/2019 12:00:00 AM EDT eCW1 ([facility]) Outpatient 05/24/2019 12:17:00 PM EDT [facility] Outpatient 05/19/2019 09:26:00 AM EST [facility] Outpatient 05/17/2019 04:38:00 PM EST [facility] Outpatient 05/17/2019 04:37:00 PM EST [facility] [address] [place] [address] 05/10/2019 12:00:00 AM EST eCW1 ([facility]) [facility] [address] [place] [address] 05/07/2019 12:00:00 AM EST eCW1 ([facility]) [facility] [address] [place] [address] 04/12/2019 12:00:00 AM EST eCW1 ([facility]) [facility] [address] [place] [address] 04/08/2019 12:00:00 AM EST eCW1 ([facility]) [facility] [address] [place] [address] 04/04/2019 12:00:00 AM EST eCW1 ([facility]) Outpatient 03/25/2019 02:48:00 PM EST [facility] Outpatient 03/24/2019 02:48:00 PM EST [facility] [address] [place] [address] 03/22/2019 12:00:00 AM EST eCW1 ([facility]) [facility] [address] [place] [address] 03/15/2019 12:00:00 AM EST eCW1 ([facility]) [facility] [address] [place] [address] 03/15/2019 12:00:00 AM EST eCW1 ([facility]) [facility] [address] [place] [address] 03/05/2019 12:00:00 AM EST eCW1 ([facility]) [facility] [address] [place] [address] 03/05/2019 12:00:00 AM EST eCW1 ([facility]) [facility] [address] [place] [address] 03/04/2019 12:00:00 AM EST eCW1 ([facility]) [facility] [address] [place] [address] 03/03/2019 12:00:00 AM EST eCW1 ([facility]) Outpatient 03/01/2019 08:36:00 PM EST [facility] Immunizations Vaccine Date Status Description Data Source(s) Depo-Provera 150mg/1mL (Medroxy-Progestrone Acetate) 10:37:00 AM EST completed eCW1 ([facility]) Depo-Provera 150mg/1mL (Medroxy-Progestrone Acetate) 10:37:00 AM EST completed eCW1 ([facility]) Depo-Provera 150mg/1mL (Medroxy-Progestrone Acetate) 10:37:00 AM EST completed eCW1 ([facility]) New in 2011. IIV4 01/31/2020 01:00:00 PM EST completed MEDENT ([facility]) RHo (D) Immune Globulin 300mcg/1.5mL (RhoGAM) 08/25/2019 09: 25:00 AM EDT completed eCW1 ([facility]) RHo (D) Immune Globulin 300mcg/1.5mL (RhoGAM) 08/25/2019 09: 25:00 AM EDT completed eCW1 ([facility]) RHo (D) Immune Globulin 300mcg/1.5mL (RhoGAM) 08/25/2019 09: 25:00 AM EDT completed eCW1 ([facility]) RHo (D) Immune Globulin 300mcg/1.5mL (RhoGAM) 08/25/2019 09: 25:00 AM EDT completed eCW1 ([facility]) RHo (D) Immune Globulin 300mcg/1.5mL (RhoGAM) 08/25/2019 09: 25:00 AM EDT completed eCW1 ([facility]) RHo (D) Immune Globulin 300mcg/1.5mL (RhoGAM) 08/25/2019 09: 25:00 AM EDT completed eCW1 ([facility]) RHo (D) Immune Globulin 300mcg/1.5mL (RhoGAM) 08/25/2019 09: 25:00 AM EDT completed eCW1 ([facility]) Medications Medication Brand Name Start Date Product Form Dose Route Admi nistrative Instructions Pharmacy Instructions Status Indications Reaction Description Data Source(s) Sulfamethoxazole 800 MG / Trimethoprim 160 MG Oral Tablet [B actrim] Bactrim DS 04/12/2020 12:00:00 AM EST ORAL active MEDENT ([facility]) 24 HR Bupropion Hydrochloride 150 MG Extended Release Oral Tablet Bupropion Hydrochloride ER (XL) 02/18/2020 12:00:00 AM EST ORAL c ompleted MEDENT ([facility]) 24 HR venlafaxine 37.5 MG Extended Release Oral Capsule [Eff exor] Effexor XR 01/31/2020 12:00:00 AM EST ORAL completed MEDENT ([facility]) pantoprazole 40 MG Delayed Release Oral Tablet [Protonix] Pr otonix 12/30/2019 12:00:00 AM EDT ORAL active M EDENT ([facility]) Sucralfate 100 MG/ML Oral Suspension [Carafate] Carafate 12/30/2019 12:00:00 AM EDT ORAL active [facility]) 24 HR Amphetamine aspartate 5 MG / Amphe tamine Sulfate 5 MG / Dextroamphetamine saccharate 5 MG / Dextroamphetamine Sulfate 5 MG Extended Release Oral Capsule [Adderall] Adderall XR 12/30/2019 12:00:00 AM EDT ORAL active MEDENT ([facility]) Sertraline 25 MG Oral Tablet [Zoloft] Zoloft 25 MG Zoloft 25 MG 06/29/2019 12:00:00 AM EDT active 1 tablet eCW1 ([facility]) buspirone hydrochloride 5 MG Oral Tablet BusPIRone HCl 5 MG BusPIRone HCl 5 MG 06/29/2019 12:00:00 AM EDT 1.0 {tablet} active BusPIRone HCl 5 MG eCW1 ([facility]) Sertraline 25 MG Oral Tablet [Zoloft] Zoloft 25 MG Zoloft 25 MG 06/29/2019 12:00:00 AM EDT 1.0 {tablet} active Zo loft 25 MG eCW1 ([facility]) Sertraline 25 MG Oral Tablet [Zoloft] Zoloft 25 MG Zoloft 25 MG 06/29/2019 12:00:00 AM EDT 1.0 {tablet} active Zo loft 25 MG eCW1 ([facility]) Sertraline 25 MG Oral Tablet [Zoloft] Zoloft 25 MG Zoloft 25 MG 06/29/2019 12:00:00 AM EDT 1.0 {tablet} active Zo loft 25 MG eCW1 ([facility]) Sertraline 25 MG Oral Tablet [Zoloft] Zoloft 25 MG Zoloft 25 MG 06/29/2019 12:00:00 AM EDT 1.0 {tablet} active Zo loft 25 MG eCW1 ([facility]) buspirone hydrochloride 5 MG Oral Tablet BusPIRone HCl 5 MG BusPIRone HCl 5 MG 06/29/2019 12:00:00 AM EDT 1.0 {tablet} active BusPIRone HCl 5 MG eCW1 ([facility]) buspirone hydrochloride 5 MG Oral Tablet BusPIRone HCl 5 MG BusPIRone HCl 5 MG 06/29/2019 12:00:00 AM EDT 1.0 {tablet} active BusPIRone HCl 5 MG eCW1 ([facility]) buspirone hydrochloride 5 MG Oral Tablet BusPIRone HCl 5 MG BusPIRone HCl 5 MG 06/29/2019 12:00:00 AM EDT 1.0 {tablet} active BusPIRone HCl 5 MG eCW1 ([facility]) Sertraline 25 MG Oral Tablet [Zoloft] Zoloft 25 MG Zoloft 25 MG 06/29/2019 12:00:00 AM EDT 1.0 {tablet} active Zo loft 25 MG eCW1 ([facility]) buspirone hydrochloride 5 MG Oral Tablet BusPIRone HCl 5 MG BusPIRone HCl 5 MG 06/29/2019 12:00:00 AM EDT 1.0 {tablet} active BusPIRone HCl 5 MG eCW1 ([facility]) buspirone hydrochloride 5 MG Oral Tablet BusPIRone HCl 5 MG BusPIRone HCl 5 MG 06/29/2019 12:00:00 AM EDT 1.0 {tablet} active BusPIRone HCl 5 MG eCW1 ([facility]) Sertraline 25 MG Oral Tablet [Zoloft] Zoloft 25 MG Zoloft 25 MG 06/29/2019 12:00:00 AM EDT 1.0 {tablet} active Zo loft 25 MG eCW1 ([facility]) buspirone hydrochloride 5 MG Oral Tablet BusPIRone HCl 5 MG BusPIRone HCl 5 MG 06/29/2019 12:00:00 AM EDT 1.0 {tablet} active BusPIRone HCl 5 MG eCW1 ([facility]) buspirone hydrochloride 5 MG Oral Tablet BusPIRone HCl 5 MG BusPIRone HCl 5 MG 06/29/2019 12:00:00 AM EDT active 1 tablet eCW1 ([facility]) Sertraline 25 MG Oral Tablet [Zoloft] Zoloft 25 MG Zoloft 25 MG 06/29/2019 12:00:00 AM EDT 1.0 {tablet} active Zo loft 25 MG eCW1 ([facility]) Sertraline 25 MG Oral Tablet [Zoloft] Zoloft 25 MG Zoloft 25 MG 06/29/2019 12:00:00 AM EDT active 1 tablet eCW1 ([facility]) buspirone hydrochloride 5 MG Oral Tablet BusPIRone HCl 5 MG BusPIRone HCl 5 MG 06/29/2019 12:00:00 AM EDT active 1 tablet eCW1 ([facility]) Sertraline 25 MG Oral Tablet [Zoloft] Zoloft 25 MG Zoloft 25 MG 06/29/2019 12:00:00 AM EDT 1.0 {tablet} active Zo loft 25 MG eCW1 ([facility]) buspirone hydrochloride 5 MG Oral Tablet BusPIRone HCl 5 MG BusPIRone HCl 5 MG 06/29/2019 12:00:00 AM EDT 1.0 {tablet} active BusPIRone HCl 5 MG eCW1 ([facility]) Sertraline 25 MG Oral Tablet [Zoloft] Zoloft 25 MG Zoloft 25 MG 06/29/2019 12:00:00 AM EDT active 1 tablet eCW1 ([facility]) Sertraline 25 MG Oral Tablet [Zoloft] Zoloft 25 MG Zoloft 25 MG 06/29/2019 12:00:00 AM EDT 1.0 {tablet} active Zo loft 25 MG eCW1 ([facility]) buspirone hydrochloride 5 MG Oral Tablet BusPIRone HCl 5 MG BusPIRone HCl 5 MG 06/29/2019 12:00:00 AM EDT active 1 tablet eCW1 ([facility]) buspirone hydrochloride 5 MG Oral Tablet BusPIRone HCl 5 MG BusPIRone HCl 5 MG 06/29/2019 12:00:00 AM EDT 1.0 {tablet} active BusPIRone HCl 5 MG eCW1 ([facility]) Amoxicillin 875 MG / Clavulanate 125 MG Oral Tablet Amoxicillin-Pot Clavulanate 875-125 MG Amoxicillin-Pot Clavulanate 875-125 MG 04/12/2019 12:00:00 AM ES T active 1 tablet eCW1 ([facility]) Amoxicillin 875 MG / Clavulanate 125 MG Oral Tablet Amoxicillin-Pot Clavulanate 875-125 MG Amoxicillin-Pot Clavulanate 875-125 MG 04/12/2019 12:00:00 AM ES T suspended 1 tablet eCW1 ([facility]) Amoxicillin 875 MG / Clavulanate 125 MG Oral Tablet Amoxicillin-Pot Clavulanate 875-125 MG Amoxicillin-Pot Clavulanate 875-125 MG 04/12/2019 12:00:00 AM ES T suspended 1 tablet eCW1 ([facility]) Vitamin 27-0.8 MG Vitamin 27-0.8 MG 2019 12:00:00 AM EST 1.0 {tablet} active Vi tamin 27-0.8 MG eCW1 ([facility]) Vitamin 27-0.8 MG Vitamin 27-0.8 MG 2019 12:00:00 AM EST active 1 tablet eCW1 ([facility]) Vitamin 27-0.8 MG Vitamin 27-0.8 MG 2019 12:00:00 AM EST 1.0 {tablet} active Vi tamin 27-0.8 MG eCW1 ([facility]) Vitamin 27-0.8 MG Vitamin 27-0.8 MG 2019 12:00:00 AM EST active 1 tablet eCW1 ([facility]) Vitamin 27-0.8 MG Vitamin 27-0.8 MG 2019 12:00:00 AM EST active 1 tablet eCW1 ([facility]) Fluoxetine 20 MG Oral Capsule [Prozac] PROzac 20 MG PROzac 2 0 MG 03/23/2019 12:00:00 AM EST suspended 1 cap divya eCW1 ([facility]) Vitamin 27-0.8 MG Vitamin 27-0.8 MG 2019 12:00:00 AM EST 1.0 {tablet} active Vi tamin 27-0.8 MG eCW1 ([facility]) Fluoxetine 20 MG Oral Capsule [Prozac] PROzac 20 MG PROzac 2 0 MG 03/23/2019 12:00:00 AM EST active 1 capsul e eCW1 ([facility]) Vitamin 27-0.8 MG Vitamin 27-0.8 MG 2019 12:00:00 AM EST 1.0 {tablet} active Vi tamin 27-0.8 MG eCW1 ([facility]) Vitamin 27-0.8 MG Vitamin 27-0.8 MG 2019 12:00:00 AM EST 1.0 {tablet} active Vi tamin 27-0.8 MG eCW1 ([facility]) Vitamin 27-0.8 MG Vitamin 27-0.8 MG 2019 12:00:00 AM EST active 1 tablet eCW1 ([facility]) Fluoxetine 20 MG Oral Capsule [Prozac] PROzac 20 MG PROzac 2 0 MG 03/23/2019 12:00:00 AM EST suspended 1 cap divya eCW1 ([facility]) Vitamin 27-0.8 MG Vitamin 27-0.8 MG 2019 12:00:00 AM EST active 1 tablet eCW1 ([facility]) Fluoxetine 20 MG Oral Capsule [Prozac] PROzac 20 MG PROzac 2 0 MG 03/23/2019 12:00:00 AM EST suspended 1 cap divya eCW1 ([facility]) Vitamin 27-0.8 MG Vitamin 27-0.8 MG 2019 12:00:00 AM EST 1.0 {tablet} active Vi tamin 27-0.8 MG eCW1 ([facility]) Vitamin 27-0.8 MG Vitamin 27-0.8 MG 2019 12:00:00 AM EST active 1 tablet eCW1 ([facility]) Fluoxetine 20 MG Oral Capsule [Prozac] PROzac 20 MG PROzac 2 0 MG 03/23/2019 12:00:00 AM EST active 1 capsul e eCW1 ([facility]) Vitamin 27-0.8 MG Vitamin 27-0.8 MG 2019 12:00:00 AM EST active 1 tablet eCW1 ([facility]) Vitamin 27-0.8 MG Vitamin 27-0.8 MG 2019 12:00:00 AM EST active 1 tablet eCW1 ([facility]) Fluoxetine 20 MG Oral Capsule [Prozac] PROzac 20 MG PROzac 2 0 MG 03/23/2019 12:00:00 AM EST active 1 capsul e eCW1 ([facility]) Vitamin 27-0.8 MG Vitamin 27-0.8 MG 2019 12:00:00 AM EST 1.0 {tablet} active Vi tamin 27-0.8 MG eCW1 ([facility]) Vitamin 27-0.8 MG Vitamin 27-0.8 MG 2019 12:00:00 AM EST 1.0 {tablet} active Vi tamin 27-0.8 MG eCW1 ([facility]) Vitamin 27-0.8 MG Vitamin 27-0.8 MG 2019 12:00:00 AM EST 1.0 {tablet} active Vi tamin 27-0.8 MG eCW1 ([facility]) Vitamin 27-0.8 MG Vitamin 27-0.8 MG 2019 12:00:00 AM EST active 1 tablet eCW1 ([facility]) Insurance Providers Payer name Policy type / Coverage type Policy ID Covered libertarian ID Covered libertarian's relationship to kan Policy Kan Plan Information [facility] [id number] [facility] [id number] [facility] HUMANA - O/P [id number] 01 [id number] O UNAVAILABLE UNAVAILA BLE HUMANA [facility] [id number] S [id number] [facility] 2017 Commercial [id number] Family Dependent [id number] [facility] 2017 Commercial [id number] Family Dependent [id number] [facility] [id number] [employer] (2018) Health Maintenance Organization (HMO) [id number] Family Dependent [id number] [facility] 2018 Commercial [id number] Family Dependent [id number] [employer] (2018) Health Maintenance Organization (HMO) [id number] Family Dependent [id number] SELF PAY O UNAVAILABLE S UNAVAILA BLE SELF PAY ONLY [id number] SP [id number] [facility] [id number] [facility] [id number] [facility] [id number] Family Dependent [id number] Problems, Conditions, and Diagnoses Code Display Name Description Problem Type Effective Dates Data Source(s) 864349296 Uncomplicated moderate persistent asthma Uncomplicated moderate persistent asthma Problem 12/30/2019 12:00:00 AM EDT MEDENT ([facility]) 517682775 Gastro-esophageal reflux disease with es ophagitis Gastro-esophageal reflux disease with esophagitis Problem 12/30/2019 12:00:00 AM EDT M EDENT ([facility]) 7122237 Psoriasis Psoriasis Problem 12/30/2019 12:00:00 AM ED T MEDENT ([facility]) F41.9 Anxiety Anxiety Problem 06/29/2019 12:00:00 AM ED T eCW1 ([facility]) F41.9 Anxiety Anxiety Problem 06/29/2019 12:00:00 AM ED T eCW1 ([facility]) J30.9 Allergic rhinitis Allergic rhinitis Problem 05/11/2019 12:00:00 AM EST eCW1 ([facility]) J30.9 Allergic rhinitis Allergic rhinitis Problem 05/11/2019 12:00:00 AM EST eCW1 ([facility]) Z34.80 care Supervision of other normal P roblem 03/15/2019 12:00:00 AM EST eCW1 ([facility]) Z34.80 care Supervision of other normal P roblem 03/15/2019 12:00:00 AM EST eCW1 ([facility]) R928 Other abnormal and inconclusive findings on diagnostic imaging of breast Other abnormal and inconclusive findings on diagnostic imaging of breast Diagnosis 04/12/2020 04:52:00 PM [facility] N611 Abscess of the breast and nipple Abscess of the breast and nipple Diagnosis 04/12/2020 04:52:00 PM [facility] Surgeries/Procedures Procedure Description Date Indications Data Source(s) Injection, medroxyprogesterone acetate for contraceptive use , 150 mg 02/25/2020 12:00:00 AM EST eCW1 ([facility]) URINE-NO MICRO 10/01/2019 12:00:00 AM EDT eCW1 ([facility]) Immunization: Boostrix 0.5mL IM (TDAP) 09/08/2019 12:0 0:00 AM EDT eCW1 ([facility]) Injection: RhoGAM 300mcg/1.5mL IM (Rho [D] Immune Globulin H uman) 08/25/2019 12:00:00 AM EDT eCW1 ([facility]) OB Visit 07/07/2019 12:00:00 AM EDT e CW1 ([facility]) Office Visit, Est Pt., Level 3 PC 03/23/2019 12:00:00 AM EST eCW1 ([facility]) Results ID Date Data Source [id number] 04/14/2020 11:16:00 [place] [address] PHONE: [phone] FAX: [phone] Name .................. : DIMPLE Massey Acct Number.................. : [id number] ROOM. ................. : Number ................... : [id number] Stay type ............. : O/P Discharge Date......... ... : 04/12/20 Admit Date ......... : 04/12/20 Admit Phys .................... : [facility] Date of ....... : 1985 Family Phys ................... : NONSTAFF Phone .................. : [phone] Age ................................ : 34 Film# .................. .:[id number] Sex ................................. : F Unsigned transcriptions are preliminary reports and do not represent a medical or legal document BREAST RIGHT [id number] COMPLETE:04/12/20 20:00 ADB 3090 (TEST REASON: PAIN [...] By Silver Hawk M.D. , 04/14/20 11:16, SCY Transcribe Initials: ROSEMARIE , Transcribe Date: 04/12/20 22:13, Dictation Date: Copy for: FAITH MCPHERSON via fax Copy for: [address] [place] [address] Page 1 of 1 Name Value Range Interpretation Code Description Data Agnieszka rce(s) Supporting Document(s) ID Date Data Source [id number] 04/14/2020 11:16:00 AM [facility] [address] [place] [address] PHONE: [phone] FAX: [phone] Name .................. : DIMPLE Massey Acct Number.................. : [id number] ROOM. ................. : MR Number ................... : [id number] Stay type ............. : O/P Discharge Date......... ... : 04/12/20 Admit Date ......... : 04/12/20 Admit Phys .................... : [facility] Date of ....... : 1985 Family Phys ................... : NONSTAFF Phone .................. : [phone] Age ................................ : 34 Film# .................. .:[id number] Sex ................................. : F Unsigned transcriptions are preliminary reports and do not represent a medical or legal document BREAST LEFT [id number] COMPLETE:04/12/20 20:00 ADB 3089 (TEST REASON: DRAINAGE [...] By Silver Hawk M.D. , 04/14/20 11:16, [place] Transcribe Initials: Dawit [place] anscribe Date: 04/12/20 22:11, Dictation Date: Copy for: BELLALUISITO MCPHERSON via fax Copy for: [address] [place] [address] REC Page 1 of 1 Name Value Range Interpretation Code Description Data Agnieszka rce(s) Supporting Document(s) ID Date Data Source [id number] 04/12/2020 04:02:00 PM EST MEDENT ([facility]) Name Value Range Interpretation Code Description Data Agnieszka rce(s) Supporting Document(s) Bacteria identified in Wound shallow by Aerobe culture Laborator y test result Normal (applies to non-numeric results) MEDENT ([facility]) <content>FULL REPORT IN LAB NOTES (eCW [...] STREP CULTURE 10/06/2019 05:44:43 AM EDT eCW1 ([facility]) Name Value Range Interpretation Code Description Data Agnieszka rce(s) Supporting Document(s) GROUP B STREP CULTURE eCW1 ([facility]) ID Date Data Source [id number] 07/30/2019 11:28:00 AM EDT [facility] ([facility], ) Name Value Range Interpretation Code Description Data Agnieszka rce(s) Supporting Document(s) Glucose tolerance 3 hours gestational panel - Serum or Plasma Laboratory test result [facility] ([facility], ) <content>GTT3 GESTATIONA 3HR GLU 3 HR GL U from 0515:[id number].</content>
<content>note:<nlbl:demographic_changed></content><b GESTATIONA 3HR GLU 3 HR GLU from 0515:[id number].</content>
<content></content> Laboratory test finding (navigational concept) 57 mg/dL Normal (applies to non-numeric results) [facility]) ID Date Data Source [id number] 07/30/2019 11:28:00 AM EDT [facility]) Name Value Range Interpretation Code Description Data Agnieszka rce(s) Supporting Document(s) Laboratory test finding (navigational concept) 57 mg/dL Normal (applies to non-numeric results) [facility]) ID Date Data Source [id number] 07/30/2019 10:26:00 AM EDT [facility]) Name Value Range Interpretation Code Description Data Agnieszka rce(s) Supporting Document(s) Glucose [Moles/volume] in Serum or Plasma --[address] XXX challenge Laboratory test result [facility]) <content>GTT3 GESTATIONA 2HR GLU 2 HR GL U from 0515:[id number].</content>
<content>note:<nlbl:demographic_changed></content><b GESTATIONA 2HR GLU 2 HR GLU from 0515:[id number].</content>
<content></content> 2 HR Glucose 114 mg/dL Normal (applies to non-numeric res ults) [facility]) ID Date Data Source [id number] 07/30/2019 10:26:00 AM EDT [facility]) Name Value Range Interpretation Code Description Data Agnieszka rce(s) Supporting Document(s) Glucose [Moles/volume] in Serum or Plasma --[address] XXX challenge 114 mg/dL Normal (applies to non-numeric results) [facility] ([facility]) <content>GTT3 GESTATIONA 2HR GLU 2 HR GL U from 0515:[id number].</content>
<content>note:<nlbl:demographic_changed></content><b GESTATIONA 2HR GLU 2 HR GLU from 0515:[id number].</content>
<content></content> ID Date Data Source [id number] 07/30/2019 09:27:00 AM EDT [facility] ([facility]) Name Value Range Interpretation Code Description Data Agnieszka rce(s) Supporting Document(s) Glucose [Mass/volume] in Serum or Plasma --1 hour post 50 g glucose PO Laboratory test result [facility] ([facility]) <content>GTT3 GESTATIONA 1HR GLU 1 HR GL UCOSE from 514:[id number].</content>
<content>note:<nlbl:demographic_changed></content><b GESTATIONA 1HR GLU 1 HR GLUCOSE from 514:[id number].</content>
<content></content> 1 HR Glucose 167 mg/dL Normal (applies to non-numeric res ults) [facility] ([facility]) ID Date Data Source [id number] 07/30/2019 09:27:00 AM EDT [facility] ([facility]) Name Value Range Interpretation Code Description Data Agnieszka rce(s) Supporting Document(s) 1 HR Glucose 167 mg/dL Normal (applies to non-numeric res ults) [facility] ([facility]) ID Date Data Source [id number] 07/30/2019 08:25:00 AM EDT [facility] ([facility]) Name Value Range Interpretation Code Description Data Agnieszka rce(s) Supporting Document(s) Glucose [Mass/volume] in Serum or Plasma --pre 75 g glucose PO 8 5 mg/dL Normal (applies to non-numeric results) [facility] ([facility]) <content>GTT3 GESTATIONA FASTING FAST GL U from 514:[id number].</content>
<content>note:<nlbl:demographic_changed></content><b GESTATIONA FASTING FAST GLU from 514:[id number].</content>
<content></content> ID Date Data Source [id number] 07/30/2019 08:25:00 AM EDT [facility]) Name Value Range Interpretation Code Description Data Agnieszka rce(s) Supporting Document(s) Glucose, Fasting 85 mg/dL Normal (applies to non-numeric results) [facility]) ID Date Data Source [id number] 07/30/2019 08:20:00 AM EDT [facility]) Name Value Range Interpretation Code Description Data Agnieszka rce(s) Supporting Document(s) QuantiFERON TB1 Ag Value 0.02 IU/ml Normal (applies to non -numeric results) [facility]) QuantiFERON Criteria Laboratory test result Norm al (applies to non-numeric results) [facility]) . The QuantiFERON-TB Gold Plus result is determined by subtracting the Nil value from either TB antigen (Ag) tube. The mitogen tube serves as a control for the test. QuantiFERON TB2 Ag Value 0.01 IU/ml Normal (applies to non -numeric results) [facility] ([facility]) QuantiFERON-TB Gold Plus Laboratory test result Normal (applies to non-numeric results) [facility]) . The specimen received for QuantiFERON testing was incubated by the ordering institution. Specific procedures outlined in our Directory of Services and in the package insert for the QuantiFERON Gold (In Tube) test must be followed to enable for proper stimulation of cells for the production of interferon gamma. Performed at: RN - [facility] [address] [id number] [employer] Emission [employer]er: Lalitha Almendarez MD, Phone: [phone] QuantiFERON Nil Value 0.02 IU/ml Normal (applies to non-nu meric results) [facility] ([facility]) QuantiFERON Mitogen Value Laboratory test result Normal (applies to non- numeric results) [facility]) ID Date Data Source [id number] 07/30/2019 08:20:00 AM EDT [facility]) Name Value Range Interpretation Code Description Data Agnieszka rce(s) Supporting Document(s) Creatinine For GFR 0.51 mg/dL 0.55-1.30 Below low normal [facility] ([facility]) Blood Urea Nitrogen 4 mg/dL 7-18 Below low normal [facility] ([facility]) Glucose, Fasting 84 mg/dL 70-100 Normal (applies to non-numeric results) [facility] ([facility]) Sodium Level 140 meq/L 136-145 Normal (applies to non-numeric res ults) [facility] ([facility]) Glomerular Filtration Rate Laboratory test result Normal (applies to non- numeric results) [facility] ([facility]) <content>Units are mL/min/1.73 m2</content>
<content></content>
<content>Chronic Kidney Disease Staging per NKF:</content>
<content></content>
<content>Stage I & II GFR >=60 Normal to Mildly Decreased</content>
<content>Stage III GFR 30- 59 Moderately Decreased</content>
<content>Stage IV GFR 15-29 Severely Decreased</content>
<content>Stage V GFR <15 Very Little GFR Left</content>
<content>ESRD GFR <15 on HOSPITALIST PROGRAM DIRECTOR</content>
<content></content> Potassium Serum 4.0 meq/L 3.5-5.1 Normal (applies to non-numeric results) [facility] ([facility]) Anion Gap 8 meq/L 8-16 Normal (applies to non-numeric resul ts) [facility] ([facility]) Carbon Dioxide Level 25 meq/L 21-32 Normal (applies to non-num roxie results) [facility] ([facility]) Chloride Level 107 meq/L 98-107 Normal (applies to non-numeric r esults) [facility] ([facility]) Phosphorus Level 2.9 mg/dL 2.5-4.9 Normal (applies to non-numeric results) [facility] ([facility]) Calcium Level 8.0 mg/dL 8.5-10.1 Below low normal [facility] ([facility]) ID Date Data Source [id number] 07/30/2019 08:20:00 AM EDT [facility] ([facility]) Name Value Range Interpretation Code Description Data Agnieszka rce(s) Supporting Document(s) Alkaline Phosphatase 63 U/L 45-117 Normal (applies to non-num roxie results) [facility] ([facility]) Ast/Sgot 10 U/L 7-37 Normal (applies to non-numeric resul ts) [facility] ([facility]) Alt/SGPT 13 U/L 12-78 Normal (applies to non-numeric resul ts) [facility] ([facility]) Total Protein 6.3 GM/DL 6.4-8.2 Below low normal [facility] ([facility]) Albumin 2.7 GM/DL 3.2-5.2 Below low normal [facility] ( [facility]) Bilirubin,Total 0.2 mg/dL 0.2-1.0 Normal (applies to non-numeric results) [facility] ([facility]) Bilirubin,Direct Laboratory test result 0.0-0.2 Normal ( applies to non-numeric results) [facility] ([facility]) Albumin/Globulin Ratio 0.8 1.2-2.2 Below low normal [facility] ([facility]) ID Date Data Source [id number] 07/30/2019 08:20:00 AM EDT [facility] ([facility]) Name Value Range Interpretation Code Description Data Agnieszka rce(s) Supporting Document(s) Red Blood Count 3.96 10 4.00-5.40 Below low normal [facility] ([facility]) White Blood Count 10.2 10 4.0-10.0 Above high normal [facility] ([facility]) Hemoglobin 11.9 g/dL 12.0-15.5 Below low normal [facility] ( [facility]) Hematocrit 37.0 % 36.0-47.0 Normal (applies to non-numeric resul ts) [facility] ([facility]) Mean Corpuscular Volume 93.4 fl 80.0-96.0 Normal ( applies to non-numeric results) [facility] ([facility]) Mean Corpuscular Hemoglobin 30.1 pg 27.0-33.0 Norm al (applies to non-numeric results) [facility] ([facility]) Red Cell Distribution Width 13.1 % 11.5-14.5 Norm al (applies to non-numeric results) [facility] ([facility]) Mean Corpuscular HGB Conc 32.2 g/dL 32.0-36.5 Normal (applies to non-numeric results) [facility] ([facility]) Platelet Count, Automated 301 10 150-450 Normal (applies to non-numeric results) [facility] ([facility]) Neutrophils % 64.9 % 36.0-66.0 Normal (applies to non-numeric re sults) [facility] ([facility]) Lymph % 20.4 % 24.0-44.0 Below low normal [facility] ( [facility]) [place] % 7.2 % 0.0-5.0 Above high normal [facility] ([facility]) Eos % 6.3 % 0.0-3.0 Above high normal [facility] ([facility]) Baso % 0.5 % 0.0-1.0 Normal (applies to non-numeric resul ts) [facility] ([facility]) Immature Granulocyte % 0.7 % 0-3.0 Normal (applies to non-n umeric results) [facility] ([facility]) Neutrophils # 6.6 10 1.5-8.5 Normal (applies to non-numeric re sults) [facility] ([facility]) [place] # 0.7 10 0.0-0.8 Normal (applies to non-numeric resul ts) [facility] ([facility]) Nucleated Red Blood Cell % 0.0 % 0-0 Normal (applies to n on-numeric results) [facility] ([facility]) Lymph # 2.1 10 1.5-5.0 Normal (applies to non-numeric resul ts) [facility] ([facility]) Baso # 0.1 10 0.0-0.2 Normal (applies to non-numeric resul ts) [facility] ([facility]) Eos # 0.6 10 0.0-0.5 Above high normal [facility] ([facility]) ID Date Data Source [id number] 07/30/2019 08:15:00 AM EDT [facility] ([facility], ) Name Value Range Interpretation Code Description Data Agnieszka rce(s) Supporting Document(s) Glucose, Fasting 85 mg/dL Normal (applies to non-numeric results) [facility]) 1 HR Glucose 167 mg/dL Normal (applies to non-numeric res ults) [facility] ([facility]) Laboratory test finding (navigational concept) 57 mg/dL Normal (applies to non-numeric results) [facility]) 2 HR Glucose 114 mg/dL Normal (applies to non-numeric res ults) [facility]) ID Date Data Source [id number] 07/30/2019 08:15:00 AM EDT [facility]) Name Value Range Interpretation Code Description Data Agnieszka rce(s) Supporting Document(s) Glucose, Fasting 85 mg/dL Normal (applies to non-numeric results) [facility]) 1 HR Glucose 167 mg/dL Normal (applies to non-numeric res ults) [facility] ([facility]) Laboratory test finding (navigational concept) 57 mg/dL Normal (applies to non-numeric results) [facility]) 2 HR Glucose 114 mg/dL Normal (applies to non-numeric res ults) [facility]) ID Date Data Source RUBELLA IMMUNE STATUS IgG 03/29/2019 12:00:00 AM EST eCW1 ([facility]) Name Value Range Interpretation Code Description Data Agnieszka rce(s) Supporting Document(s) IMMUNE IMMUNE RUBELLA IgG QUALITATIVE eCW1 ( [facility]) ID Date Data Source SYPHILIS ANTIBODY (RPR SCREEN) 03/29/2019 12:00:00 AM EST eC W1 ([facility]) Name Value Range Interpretation Code Description Data Agnieszka rce(s) Supporting Document(s) NONREACTIVE NONREACTIVE SYPHILIS eCW1 ([facility]) ID Date Data Source HEPATITIS C ANTIBODY INDEX 03/29/2019 12:00:00 AM EST eCW1 ( [facility]) Name Value Range Interpretation Code Description Data Agnieszka rce(s) Supporting Document(s) 0.0 <0.8 HEPATITIS C VIRUS PRAVIN INDEX eC W1 ([facility]) ID Date Data Source CHLAMYDIA & GC DNA AMPLIFICAT 03/29/2019 12:00:00 AM EST eCW 1 ([facility]) Name Value Range Interpretation Code Description Data Agnieszka rce(s) Supporting Document(s) Chlamydia trachomatis rRNA [Presence] in Unspecified specimen by Probe and target amplification method NEGATIVE NEGATIVE CHLAMYDIA DNA AMPLIFICATION eCW1 ([facility]) ID Date Data Source Type and Screen Prenatal1 03/29/2019 12:00:00 AM EST eCW1 ([facility]) Name Value Range Interpretation Code Description Data Agnieszka rce(s) Supporting Document(s) POSITIVE AB SCREEN PNP1 GEL (VIS) eCW1 ([facility]) ID Date Data Source [id number] 03/07/2019 11:45:00 AM EST [facility] ([facility]) Name Value Range Interpretation Code Description Data Agnieszka rce(s) Supporting Document(s) Reflex Urine Culture Laboratory test result Norm al (applies to non-numeric results) [facility] ([facility]) FULL REPORT IN LAB NOTES (eCW and [facility] ). NO GROWTH ID Date Data Source [id number] 03/07/2019 11:45:00 AM EST [facility] ([facility]) Name Value Range Interpretation Code Description Data Agnieszka rce(s) Supporting Document(s) Color, Urine RFX Laboratory test result Normal ( applies to non-numeric results) [facility] ([facility]) Appearance, Urine RFX Laboratory test result Nor mal (applies to non-numeric results) [facility] ([facility]) Specific Zachary Ur Auto RFX 1.005 1.002-1.035 Nor mal (applies to non-numeric results) [facility] ([facility]) Protein, Urine Auto RFX Laboratory test result N ormal (applies to non-numeric results) [facility] ([facility]) PH,Urine RFX 7.0 units 5.0-9.0 Normal (applies to non-numeric res ults) [facility] ([facility]) Ketone, Urine Auto RFX Laboratory test result No rmal (applies to non-numeric results) [facility] ([facility]) Glucose, Urine (Ua) Auto RFX Laboratory test result Normal (applies to non- numeric results) [facility] ([facility]) Urobilinogen, Urine Auto RFX 0.2 mg/dL 0.0-2.0 Nor mal (applies to non-numeric results) [facility] ([facility]) Bilirubin, Urine Auto RFX Laboratory test result Normal (applies to non- numeric results) [facility] ([facility]) Nitrite, Urine Auto RFX Laboratory test result N ormal (applies to non-numeric results) [facility] ([facility]) Leukocyte Esterase Ur Auto RFX Laboratory test result Abov e high normal [facility] ([facility]) Blood, Urine Blood RFX Laboratory test result Above high n ormal [facility] ([facility]) RBC, Urine Auto RFX 34 /HPF 0-3 Above high normal [facility] ([facility]) WBC, Urine Auto RFX 5 /HPF 0-3 Above high normal [facility] ([facility]) Hyaline Cast, Urine Auto RFX 0 /LPF 0-1 Normal (appl ies to non-numeric results) [facility] ([facility]) Squam Epithelial Cell Ur Aurfx 10 /HPF 0-6 N ormal (applies to non-numeric results) [facility] ([facility]) Bacteria, Urine Auto RFX Laboratory test result Above high normal [facility] ([facility]) ID Date Data Source [id number] 03/07/2019 10:51:00 AM EST [facility] ([facility]) Name Value Range Interpretation Code Description Data Agnieszka rce(s) Supporting Document(s) Choriogonadotropin.beta subunit [Moles/volume] in Serum or P lasma 64414 MIU/ML Normal (applies to non-numeric results) [facility] ([facility]) GESTATIONAL AGE APPROXIMATE HCG RANGE (MIU/ML) [...] monitoring the treatment of cancer patients. Siem[employer] methodology. ID Date Data Source [id number] 03/03/2019 07:47:00 PM EST [facility] ([facility]) Name Value Range Interpretation Code Description Data Agnieszka rce(s) Supporting Document(s) Rh immune globulin screen [interpretation] Laboratory test result [facility] ([facility]) TRANSFUSED PRODUCT: RHOGAM COUNT: 1 ID Date Data Source [id number] 03/03/2019 07:15:00 PM EST [facility] ([facility]) Name Value Range Interpretation Code Description Data Agnieszka rce(s) Supporting Document(s) Wet Prep Laboratory test result Normal (applies to non-n umeric results) [facility] ([facility]) FEW EPITHELIAL CELLS PRESENT FEW WBC FEW LONG RODS PRESENT ID Date Data Source [id number] 03/03/2019 06:50:00 PM EST [facility] ([facility]) Name Value Range Interpretation Code Description Data Agnieszka rce(s) Supporting Document(s) Chlamydia Dna Amplification Laboratory test result Normal (applies to non- numeric results) [facility] ([facility]) A negative test result does not exclude the possibility of infection because test results may be affected by improper specimen collection, technical error, specimen mix-up, concurrent antibiotic therapy, or the number of organisms in the specimen which may be below the sensitivity of the test. GC Dna Amplification Laboratory test result Norm al (applies to non-numeric results) [facility] ([facility]) A negative test result does not exclude the possibility of infection because test results may be affected by improper specimen collection, technical error, specimen mix-up, concurrent antibiotic therapy, or the number of organisms in the specimen which may be below the sensitivity of the test. ID Date Data Source [id number] 03/03/2019 05:25:00 PM EST [facility] ([facility]) Name Value Range Interpretation Code Description Data Agnieszka rce(s) Supporting Document(s) Blood Type Laboratory test result Normal (applies to non-n umeric results) [facility] ([facility]) AB Screen (Indirect Mekhi)Vis Laboratory test result Normal (applies to non- numeric results) [facility] ([facility]) ID Date Data Source [id number] 03/03/2019 05:24:00 PM EST [facility] ([facility]) Name Value Range Interpretation Code Description Data Agnieszka rce(s) Supporting Document(s) Choriogonadotropin.beta subunit [Moles/volume] in Serum or Plasm a 4765 MIU/ML Normal (applies to non-numeric results) [facility] ([facility]) GESTATIONAL AGE APPROXIMATE HCG RANGE (MIU/ML) [...] monitoring the treatment of cancer patients. [employer] methodology. ID Date Data Source [id number] 03/03/2019 05:24:00 PM EST [facility] ([facility]) Name Value Range Interpretation Code Description Data Agnieszka rce(s) Supporting Document(s) Appearance, Urine RFX Laboratory test result Nor mal (applies to non-numeric results) [facility] ([facility]) Color, Urine RFX Laboratory test result Normal ( applies to non-numeric results) [facility] ([facility]) Protein, Urine Auto RFX Laboratory test result N ormal (applies to non-numeric results) [facility] ([facility]) PH,Urine RFX 6.0 units 5.0-9.0 Normal (applies to non-numeric res ults) [facility] ([facility]) Specific Zachary Ur Auto RFX 1.006 1.002-1.035 Nor mal (applies to non-numeric results) [facility] ([facility]) Urobilinogen, Urine Auto RFX 0.2 mg/dL 0.0-2.0 Nor mal (applies to non-numeric results) [facility] ([facility]) Ketone, Urine Auto RFX Laboratory test result No rmal (applies to non-numeric results) [facility] ([facility]) Glucose, Urine (Ua) Auto RFX Laboratory test result Normal (applies to non- numeric results) [facility] ([facility]) Leukocyte Esterase Ur Auto RFX Laboratory test result Normal (applies to non- numeric results) [facility] ([facility]) Nitrite, Urine Auto RFX Laboratory test result N ormal (applies to non-numeric results) [facility] ([facility]) Bilirubin, Urine Auto RFX Laboratory test result Normal (applies to non- numeric results) [facility] ([facility]) WBC, Urine Auto RFX 3 /HPF 0-3 Normal (applies to non-nume hailey results) [facility] ([facility]) RBC, Urine Auto RFX 2 /HPF 0-3 Normal (applies to non-nume hailey results) [facility] ([facility]) Blood, Urine Blood RFX Laboratory test result Above high n ormal [facility] ([facility]) Bacteria, Urine Auto RFX Laboratory test result Above high normal [facility] ([facility]) Transitional Epithelial AU RFX Laboratory test result Normal (applies to non- numeric results) [facility] ([facility]) Squam Epithelial Cell Ur Aurfx 7 /HPF 0-6 N ormal (applies to non-numeric results) [facility] ([facility]) Hyaline Cast, Urine Auto RFX 0 /LPF 0-1 Normal (appl ies to non-numeric results) [facility] ([facility]) ID Date Data Source [id number] 03/03/2019 05:24:00 PM EST [facility] ([facility]) Name Value Range Interpretation Code Description Data Agnieszka rce(s) Supporting Document(s) Hemoglobin 13.8 g/dL 12.0-15.5 Normal (applies to non-numeric resul ts) [facility] ([facility]) Red Blood Count 4.67 10 4.00-5.40 Normal (applies to non-numeric results) [facility] ([facility]) White Blood Count 10.3 10 4.0-10.0 Above high normal [facility] ([facility]) Hematocrit 42.7 % 36.0-47.0 Normal (applies to non-numeric resul ts) [facility] ([facility]) Mean Corpuscular Hemoglobin 29.6 pg 27.0-33.0 Norm al (applies to non-numeric results) [facility] ([facility]) Mean Corpuscular Volume 91.4 fl 80.0-96.0 Normal ( applies to non-numeric results) [facility] ([facility]) Mean Corpuscular HGB Conc 32.3 g/dL 32.0-36.5 Normal (applies to non-numeric results) [facility] ([facility]) Red Cell Distribution Width 12.3 % 11.5-14.5 Norm al (applies to non-numeric results) [facility] ([facility]) Platelet Count, Automated 401 10 150-450 Normal (applies to non-numeric results) [facility] ([facility]) Lymph % 24.7 % 24.0-44.0 Normal (applies to non-numeric resul ts) [facility] ([facility]) [place] % 8.2 % 0.0-5.0 Above high normal [facility] ([facility]) Neutrophils % 60.4 % 36.0-66.0 Normal (applies to non-numeric re sults) [facility] ([facility]) Baso % 0.9 % 0.0-1.0 Normal (applies to non-numeric resul ts) [facility] ([facility]) Eos % 5.5 % 0.0-3.0 Above high normal [facility] ([facility]) Immature Granulocyte % 0.3 % 0-3.0 Normal (applies to non-n umeric results) [facility] ([facility]) Lymph # 2.6 10 1.5-5.0 Normal (applies to non-numeric resul ts) [facility] ([facility]) Nucleated Red Blood Cell % 0.0 % 0-0 Normal (applies to n on-numeric results) [facility] ([facility]) Neutrophils # 6.2 10 1.5-8.5 Normal (applies to non-numeric re sults) [facility] ([facility]) Baso # 0.1 10 0.0-0.2 Normal (applies to non-numeric resul ts) [facility] ([facility]) [place] # 0.9 10 0.0-0.8 Above high normal [facility] ([facility]) Eos # 0.6 10 0.0-0.5 Above high normal [facility] ([facility]) Procedure Social History Code Duration Value Status Description Data Source(s ) Smoking 10/08/2019 12:00:00 AM EDT Never Smoker completed Never S moker eCW1 ([facility]) Smoking 10/08/2019 12:00:00 AM EDT Never Smoker completed Never S moker eCW1 ([facility]) Smoking 10/08/2019 12:00:00 AM EDT Never Smoker completed Never S moker eCW1 ([facility]) Smoking 10/08/2019 12:00:00 AM EDT Never Smoker completed Never S moker eCW1 ([facility]) Smoking 10/08/2019 12:00:00 AM EDT Never Smoker completed Never S moker eCW1 ([facility]) Smoking 10/08/2019 12:00:00 AM EDT Never Smoker completed Never S moker eCW1 ([facility]) Smoking 10/01/2019 12:00:00 AM EDT Never Smoker completed Never S moker eCW1 ([facility]) Smoking 08/31/2019 12:00:00 AM EDT Never Smoker completed Never S moker eCW1 ([facility]) Smoking 08/11/2019 12:00:00 AM EDT Never Smoker completed Never S karen eCW1 ([facility]) Vital Signs ID Date Data Source UNK Name Value Range Interpretation Code Description Data Source(s) [place] body weight 130 [lb_av] 130 [lb_av] MEDEN T ([facility]) Oxygen saturation in Arterial blood by Pulse oximetry 121 % 121 % [facility] ([facility]) Body temperature 99.8 [degF] 99.8 [degF] [facility] ([facility]) Respiratory rate 18 /min 18 /min [facility] ( [facility]) Heart rate 99 /min 99 /min [facility] ([facility]) Body mass index (BMI) [Ratio] 26.3 kg/m2 26.3 k g/m2 [facility] ([facility]) Body weight 163.00 [lb_av] 163.00 [lb_av] MEDEN T ([facility]) Body height 66 [in_i] 66 [in_i] [facility] ([facility]) 5'6" Diastolic blood pressure 87 mm[Hg] 87 mm[Hg] [facility] ([facility]) Systolic blood pressure 138 mm[Hg] 138 mm[Hg] M EDENT ([facility]) [place] body weight 130 [lb_av] 130 [lb_av] MEDEN T ([facility]) Oxygen saturation in Arterial blood by Pulse oximetry 96 % 96 % [facility] ([facility]) Body temperature 98.9 [degF] 98.9 [degF] [facility] ([facility]) Respiratory rate 18 /min 18 /min [facility] ( [facility]) Heart rate 103 /min 103 /min [facility] ([facility]) Body mass index (BMI) [Ratio] 26.5 kg/m2 26.5 k g/m2 [facility] ([facility]) Body weight 164.00 [lb_av] 164.00 [lb_av] MEDEN T ([facility]) Body height 66 [in_i] 66 [in_i] [facility] ([facility]) 5'6" Diastolic blood pressure 64 mm[Hg] 64 mm[Hg] [facility] ([facility]) Systolic blood pressure 122 mm[Hg] 122 mm[Hg] [facility]) [place] body weight 130 [lb_av] 130 [lb_av] MEDEN T ([facility]) Oxygen saturation in Arterial blood by Pulse oximetry 99 % 99 % [facility] ([facility]) Body temperature 99.0 [degF] 99.0 [degF] [facility] ([facility]) Respiratory rate 18 /min 18 /min [facility] ( [facility]) Heart rate 99 /min 99 /min [facility] ([facility]) Body mass index (BMI) [Ratio] 26.9 kg/m2 26.9 k g/m2 [facility] ([facility]) Body weight 166.38 [lb_av] 166.38 [lb_av] MED[facility] T ([facility]) Body height 66 [in_i] 66 [in_i] [facility] ([facility]) 5'6" Diastolic blood pressure 70 mm[Hg] 70 mm[Hg] [facility] ([facility]) Systolic blood pressure 112 mm[Hg] 112 mm[Hg] [facility]) Body weight 73.483 kg 73.[address] [facility] ([facility], ) [place] body weight 130 [lb_av] 130 [lb_av] MEDEN T ([facility], ) Body mass index (BMI) [Ratio] 26.1 kg/m2 26.1 k g/m2 [facility] ([facility], ) Body weight 162.00 [lb_av] 162.00 [lb_av] [facility] Body height 66 [in_i] 66 [in_i] [facility] ([facility], ) 5'6" Diastolic blood pressure 60 mm[Hg] 60 mm[Hg] [facility] ([facility], ) Systolic blood pressure 120 mm[Hg] 120 mm[Hg] [facility], ) [place] body weight 130 [lb_av] 130 [lb_av] MED[facility] T ([facility]) Oxygen saturation in Arterial blood by Pulse oximetry 97 % 97 % [facility] ([facility]) Body temperature 99.1 [degF] 99.1 [degF] [facility] ([facility]) Respiratory rate 18 /min 18 /min [facility] ( [facility]) Heart rate 66 /min 66 /min [facility] ([facility]) Body mass index (BMI) [Ratio] 25.6 kg/m2 25.6 k g/m2 [facility] ([facility]) Body weight 158.38 [lb_av] 158.38 [lb_av] MED[facility] T ([facility]) Body height 66 [in_i] 66 [in_i] [facility] ([facility]) 5'6" Diastolic blood pressure 68 mm[Hg] 68 mm[Hg] [facility] ([facility]) Systolic blood pressure 114 mm[Hg] 114 mm[Hg] M EDENT ([facility]) Diastolic blood pressure 70 mm[Hg] 70 mm[Hg] eCW1 ([facility]) Systolic blood pressure 108 mm[Hg] 108 mm[Hg] e CW1 ([facility]) Body mass index (BMI) [Ratio] 28.356 kg/m2 28.3 56 kg/m2 [facility] ([facility]) Body height 65 [in_i] 65 [in_i] eCW1 ([facility]) Body weight 170.4 [lb_av] 170.4 [lb_av] W1 ([facility]) Diastolic blood pressure 62 mm[Hg] 62 mm[Hg] eCW1 ([facility]) Systolic blood pressure 118 mm[Hg] 118 mm[Hg] e CW1 ([facility]) Body mass index (BMI) [Ratio] 29.122 kg/m2 29.1 22 kg/m2 [facility] ([facility]) Body height 65 [in_i] 65 [in_i] eCW1 ([facility]) Body weight 175 [lb_av] 175 [lb_av] eCW1 ([facility]) Diastolic blood pressure 72 mm[Hg] 72 mm[Hg] eCW1 ([facility]) Systolic blood pressure 110 mm[Hg] 110 mm[Hg] e CW1 ([facility]) Body mass index (BMI) [Ratio] 29.587 kg/m2 29.5 87 kg/m2 eCW1 ([facility]) Body height 65 [in_i] 65 [in_i] eCW1 ([facility]) Body weight 177.8 [lb_av] 177.8 [lb_av] eCW1 ([facility]) Diastolic blood pressure 64 mm[Hg] 64 mm[Hg] eCW1 ([facility]) Systolic blood pressure 116 mm[Hg] 116 mm[Hg] e CW1 ([facility]) Body mass index (BMI) [Ratio] 28.955 kg/m2 28.9 55 kg/m2 eCW1 ([facility]) Body height 65 [in_i] 65 [in_i] eCW1 ([facility]) Body weight 174 [lb_av] 174 [lb_av] eCW1 ([facility]) Diastolic blood pressure 72 mm[Hg] 72 mm[Hg] eCW1 ([facility]) Systolic blood pressure 106 mm[Hg] 106 mm[Hg] e CW1 ([facility]) Body temperature 98.8 [degF] 98.8 [degF] eCW1 ( [facility]) Respiratory rate 18 /min 18 /min eCW1 ([facility]) Heart rate 104 /min 104 /min eCW1 ([facility]) Body mass index (BMI) [Ratio] 28.29 kg/m2 28.29 kg/m2 eCW1 ([facility]) Body height 65 [in_us] 65 [in_us] eCW1 ([facility]) Body weight Measured 170 [lb_av] 170 [lb_av] eC W1 ([facility]) Diastolic blood pressure 78 mm[Hg] 78 mm[Hg] eCW1 ([facility]) Systolic blood pressure 112 mm[Hg] 112 mm[Hg] e CW1 ([facility]) Body mass index (BMI) [Ratio] 28.456 kg/m2 28.4 56 kg/m2 eCW1 ([facility]) Body height 65 [in_i] 65 [in_i] eCW1 ([facility]) Body weight 171 [lb_av] 171 [lb_av] eCW1 ([facility]) Diastolic blood pressure 68 mm[Hg] 68 mm[Hg] eCW1 ([facility]) Systolic blood pressure 118 mm[Hg] 118 mm[Hg] e CW1 ([facility]) Body mass index (BMI) [Ratio] 28.19 kg/m2 28.19 kg/m2 eCW1 ([facility]) Body height 65 [in_us] 65 [in_us] eCW1 ([facility]) Body weight Measured 169.4 [lb_av] 169.4 [lb_av ] eCW1 ([facility]) Diastolic blood pressure 78 mm[Hg] 78 mm[Hg] eCW1 ([facility]) Systolic blood pressure 122 mm[Hg] 122 mm[Hg] e CW1 ([facility]) Body mass index (BMI) [Ratio] 26.759 kg/m2 26.7 59 kg/m2 eCW1 ([facility]) Body height 65 [in_us] 65 [in_us] eCW1 ([facility]) Body weight Measured 160.8 [lb_av] 160.8 [lb_av ] eCW1 ([facility]) Diastolic blood pressure 80 mm[Hg] 80 mm[Hg] eCW1 ([facility]) Systolic blood pressure 119 mm[Hg] 119 mm[Hg] e CW1 ([facility]) Body temperature 97.8 [degF] 97.8 [degF] eCW1 ( [facility]) Respiratory rate 18 /min 18 /min eCW1 ([facility]) Heart rate 103 /min 103 /min eCW1 ([facility]) Body mass index (BMI) [Ratio] 27.45 kg/m2 27.45 kg/m2 eCW1 ([facility]) Body height 65 [in_us] 65 [in_us] eCW1 ([facility]) Body weight Measured 165 [lb_av] 165 [lb_av] eC W1 ([facility]) Body height 65 [in_us] 65 [in_us] eCW1 ([facility]) Body weight Measured 158.4 [lb_av] 158.4 [lb_av ] eCW1 ([facility]) Diastolic blood pressure 74 mm[Hg] 74 mm[Hg] eCW1 ([facility]) Systolic blood pressure 112 mm[Hg] 112 mm[Hg] e CW1 ([facility]) Body mass index (BMI) [Ratio] 26.359 kg/m2 26.3 59 kg/m2 eCW1 ([facility]) Diastolic blood pressure 79 mm[Hg] 79 mm[Hg] eCW1 ([facility]) Systolic blood pressure 113 mm[Hg] 113 mm[Hg] e CW1 ([facility]) Body temperature [degF] eCW1 ([facility]) Respiratory rate 16 /min 16 /min eCW1 ([facility]) Heart rate 99 /min 99 /min eCW1 ([facility]) Body mass index (BMI) [Ratio] 26.46 kg/m2 26.46 kg/m2 eCW1 ([facility]) Body height 65 [in_us] 65 [in_us] eCW1 ([facility]) Body weight Measured 159 [lb_av] 159 [lb_av] eC W1 ([facility]) Diastolic blood pressure 70 mm[Hg] 70 mm[Hg] eCW1 ([facility]) Systolic blood pressure 120 mm[Hg] 120 mm[Hg] e CW1 ([facility]) Body mass index (BMI) [Ratio] 26.22 kg/m2 26.22 kg/m2 eCW1 ([facility]) Body height 65 [in_us] 65 [in_us] eCW1 ([facility]) Body weight Measured 157.6 [lb_av] 157.6 [lb_av ] eCW1 ([facility]) Diastolic blood pressure 76 mm[Hg] 76 mm[Hg] eCW1 ([facility]) Systolic blood pressure 126 mm[Hg] 126 mm[Hg] e CW1 ([facility]) Body mass index (BMI) [Ratio] 26.46 kg/m2 26.46 kg/m2 eCW1 ([facility]) Body height 65 [in_us] 65 [in_us] eCW1 ([facility]) Body weight Measured 159 [lb_av] 159 [lb_av] eC W1 ([facility]) Patient Treatment Plan of Care Planned Activity Planned Date Details Description Data Source (s) buspirone hydrochloride 5 MG Oral Tablet 06/29/2019 12:00:00 AM EDT eCW1 ([facility]) Sertraline 25 MG Oral Tablet [Zoloft] 06/29/2019 12:00:00 AM EDT eCW1 ([facility]) Amoxicillin 875 MG / Clavulanate 125 MG Oral Tablet 04/12/19 12:00:00 AM EST eCW1 ([facility]) Vitamin 27-0.8 MG 03/23/2019 12:00:00 AM EST eCW1 ([facility]) Vitamin 27-0.8 MG 03/23/2019 12:00:00 AM EST eCW1 ([facility]) Fluoxetine 20 MG Oral Capsule [Prozac] 03/23/2019 12:00:00 AM EST eCW1 ([facility]) Vitamin 27-0.8 MG 03/23/2019 12:00:00 AM EST eCW1 ([facility])
[2020-04-19] MEDS ORDERED: LR 1,000 ML IV ONE (16:45)
[2020-04-19] MEDS ORDERED: LIDOCAINE 1% SDV 30ML VIAL As Ordered ONE (17:42)
[2020-04-19] MEDS ORDERED: BUPIVACAINE HCL 0.25% 30ML VIAL As Ordered ONE (17:42)
[2020-04-19] MEDS ORDERED: ROCURONIUM BROMIDE 50 MG/5 ML VIAL As Ordered ONE (17:56)
[2020-04-19] MEDS ORDERED: propofoL 200 MG/20 ML VIAL As Ordered ONE (17:56)
[2020-04-19] MEDS ORDERED: LIDOCAINE 2% 100MG/5ML SDV (FOR ANES.) As Ordered ONE (17:56)
[2020-04-19] MEDS ORDERED: MIDAZOLAM INJ 2MG/2ML VIAL (J2250 PER 1MG) As Ordered ONE (17:57)
[2020-04-19] MEDS ORDERED: fentaNYL 100 MCG/2 ML INJECTION (J3010) As Ordered ONE (17:57)
[2020-04-19] MEDS ORDERED: SUGAMMADEX SODIUM 500 MG/5 ML VIAL (BRIDION) As Ordered ONE (18:40)
[2020-04-19] MEDS ORDERED: KETOROLAC 60MG 2ML VIAL As Ordered ONE (18:40)
[2020-04-19] MEDS ORDERED: ONDANSETRON 4MG/2ML VIAL As Ordered ONE (18:54)
[2020-04-19] MEDS ORDERED: dexameTHASONE 4 MG/ML 1ML VIAL (J1100 PER 1MG) As Ordered ONE (18:57)
[2020-04-19] MEDS ORDERED: LR 1,000 ML IV SCH ×2 (19:22→19:30)
[2020-04-19] MEDS ORDERED: oxyCODONE 5MG TAB As Ordered ONE (19:26)
[2020-04-19] MEDS ORDERED: ONDANSETRON 4MG/2ML VIAL IV PRN ×2 (19:30)
[2020-04-19] MEDS ORDERED: CHLORASEPTIC SPRAY MT PRN (19:30)
[2020-04-19] MEDS ORDERED: MORPHINE 2 MG/ML 1ML VIAL (J2270) IV PRN (19:30)
[2020-04-19] MEDS ORDERED: oxyCODONE 5MG TAB PO PRN (19:30)
[2020-04-19] MEDS ORDERED: ACETAMINOPHEN TAB 650MG DOSE (2X325MG) PO PRN (19:30)
[2020-04-19] MEDS ORDERED: traMADol 50 MG TAB PO PRN (19:30)
[2020-04-19] MEDS ORDERED: fentaNYL 100 MCG/2 ML INJECTION (J3010) IV PRN (19:30)
[2020-04-19 20:25] VITALS: BP 123/87
--- OUTSIDE RECORDS SUMMARY | 2020-04-19 20:42 | CCD ---
Author Author [facility] Organization 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 If you continue you may have access to information: Regarding HIV / AIDS; Provided by facilities licensed or operated by the [facility] Office of Mental Health; or Provided by the [facility] Office for People With Developmental Disabilities. If such information is present, then the following [facility] mandated warning applies: This information has [...] law may result in a fine or correction sentence or both. A general authorization for the release of medical or other information is NOT sufficient authorization for further disc losure. Allergies and Adverse Reactions Type Description Substance Reaction Status Data Source(s ) aspirin Aspirin Aspirin Unknown Active eCW1 ([facility]) Family History Family Member Name Family Member Gender Family Member Status Date o f Status Description Data Source(s) Unknown Female Problem MEDENT ([facility]) Unknown Male Problem MEDENT ([facility]) Unknown Unknown Problem MEDENT ([facility] Encounters Encounter Providers Location Date Indications Data Source(s ) [place] [address] [facility] [address] 04/17/2020 12:00:00 AM EST eCW1 ([facility]) [place] [address] [facility] [address] 04/13/2020 12:00:00 AM EST eCW1 ([facility]) Outpatient Attender: [place] Chavessuant: PHYSICIAN ALEJANDRO N-STAFF 04/12/2020 04:52:00 PM EST - 04/12/2020 05:52:00 PM EST [facility] Outpatient Attender: Ky RODRIGUEZ [facility] 04/12/2020 02:30:00 PM EST MEDENT ([facility]) ( [place]) enter Nurse Visit [address] [place] [address] 02/25/2020 12:00:00 AM EST eCW1 ([facility]) Outpatient Attender: Ky RODRIGUEZ [facility] 02/18/2020 12:40:00 PM EST MEDENT ([facility]) Outpatient Attender: Ky RODRIGUEZ [facility] 01/31/2020 12:30:00 PM EST MEDENT ([facility]) Outpatient Attender: Ky RODRIGUEZ [facility] 12/30/2019 01:00:00 PM EDT MEDENT ([facility]) ( ESTOB) WCenter Est OB [address] [place] [address] 10/01/2019 12:00:00 AM EDT eCW1 ([facility]) [place] [address] [facility] [address] 09/30/2019 12:00:00 AM EDT eCW1 ([facility]) ( ESTOB) WCenter Est OB [address] [place] [address] 09/23/2019 12:00:00 AM EDT eCW1 ([facility]) (WC ESTOB) WCenter Est OB [address] [place] [address] 09/08/2019 12:00:00 AM EDT eCW1 ([facility]) [facility] [address] [place] [address] 08/26/2019 12:00:00 AM EDT eCW1 ([facility]) (WC ESTOB) WCenter Est OB [address] [place] [address] 08/25/2019 12:00:00 AM EDT eCW1 ([facility]) Outpatient 08/16/2019 10:35:00 AM EDT [facility] [address] [place] [address] 08/11/2019 12:00:00 AM EDT eCW1 ([facility]) (WC ESTOB) WCenter Est OB [address] [place] [address] 08/04/2019 12:00:00 AM EDT eCW1 ([facility]) [facility] [address] [place] [address] 07/27/2019 12:00:00 AM EDT eCW1 ([facility]) [facility] [address] [place] [address] 07/27/2019 12:00:00 AM EDT eCW1 ([facility]) [facility] [address] [place] [address] 07/07/2019 12:00:00 AM EDT eCW1 ([facility]) [facility] [address] [place] [address] 07/02/2019 12:00:00 AM EDT eCW1 ([facility]) [facility] [address] [place] [address] 06/29/2019 12:00:00 AM EDT eCW1 ([facility]) [facility] [address] [place] [address] 06/21/2019 12:00:00 AM EDT eCW1 ([facility]) [facility] [address] [place] [address] 06/04/2019 12:00:00 AM EDT eCW1 ([facility]) [facility] Women Center [address] [place] [address] 06/04/2019 12:00:00 AM EDT eCW1 ([facility]) Outpatient 05/24/2019 12:17:00 PM EDT [facility] Outpatient 05/19/2019 09:26:00 AM EST [facility] Outpatient 05/17/2019 04:38:00 PM EST [facility] Outpatient 05/17/2019 04:37:00 PM EST [facility] [address] [place] [address] 05/10/2019 12:00:00 AM EST eCW1 ([facility]) [facility] [address] [place] [address] 05/07/2019 12:00:00 AM EST eCW1 ([facility]) [facility] [address] [place] [address] 04/12/2019 12:00:00 AM EST eCW1 ([facility]) [facility] [address] [place] [address] 04/08/2019 12:00:00 AM EST eCW1 ([facility]) [facility] [address] [place] [address] 04/04/2019 12:00:00 AM EST eCW1 ([facility]) Outpatient 03/25/2019 02:48:00 PM EST [facility] Outpatient 03/24/2019 02:48:00 PM EST [facility] [address] [place] [address] 03/22/2019 12:00:00 AM EST eCW1 ([facility]) [facility] [address] [place] [address] 03/15/2019 12:00:00 AM EST eCW1 ([facility]) [facility] [address] [place] [address] 03/15/2019 12:00:00 AM EST eCW1 ([facility]) [facility] [address] [place] [address] 03/05/2019 12:00:00 AM EST eCW1 ([facility]) [facility] [address] [place] [address] 03/05/2019 12:00:00 AM EST eCW1 ([facility]) [facility] [address] [place] [address] 03/04/2019 12:00:00 AM EST eCW1 ([facility]) [facility] [address] [place] [address] 03/03/2019 12:00:00 AM EST eCW1 ([facility]) Outpatient 03/01/2019 08:36:00 PM EST [facility] Immunizations Vaccine Date Status Description Data Source(s) Depo-Provera 150mg/1mL (Medroxy-Progestrone Acetate) 10:37:00 AM EST completed eCW1 ([facility]) Depo-Provera 150mg/1mL (Medroxy-Progestrone Acetate) 10:37:00 AM EST completed eCW1 ([facility]) Depo-Provera 150mg/1mL (Medroxy-Progestrone Acetate) 10:37:00 AM EST completed eCW1 ([facility]) New in 2011. IIV4 01/31/2020 01:00:00 PM EST completed MEDENT ([facility]) RHo (D) Immune Globulin 300mcg/1.5mL (RhoGAM) 08/25/2019 09: 25:00 AM EDT completed eCW1 ([facility]) RHo (D) Immune Globulin 300mcg/1.5mL (RhoGAM) 08/25/2019 09: 25:00 AM EDT completed eCW1 ([facility]) RHo (D) Immune Globulin 300mcg/1.5mL (RhoGAM) 08/25/2019 09: 25:00 AM EDT completed eCW1 ([facility]) RHo (D) Immune Globulin 300mcg/1.5mL (RhoGAM) 08/25/2019 09: 25:00 AM EDT completed eCW1 ([facility]) RHo (D) Immune Globulin 300mcg/1.5mL (RhoGAM) 08/25/2019 09: 25:00 AM EDT completed eCW1 ([facility]) RHo (D) Immune Globulin 300mcg/1.5mL (RhoGAM) 08/25/2019 09: 25:00 AM EDT completed eCW1 ([facility]) RHo (D) Immune Globulin 300mcg/1.5mL (RhoGAM) 08/25/2019 09: 25:00 AM EDT completed eCW1 ([facility]) Medications Medication Brand Name Start Date Product Form Dose Route Admi nistrative Instructions Pharmacy Instructions Status Indications Reaction Description Data Source(s) Sulfamethoxazole 800 MG / Trimethoprim 160 MG Oral Tablet [B actrim] Bactrim DS 04/12/2020 12:00:00 AM EST ORAL active MEDENT ([facility]) 24 HR Bupropion Hydrochloride 150 MG Extended Release Oral Tablet Bupropion Hydrochloride ER (XL) 02/18/2020 12:00:00 AM EST ORAL c ompleted MEDENT ([facility]) 24 HR venlafaxine 37.5 MG Extended Release Oral Capsule [Eff exor] Effexor XR 01/31/2020 12:00:00 AM EST ORAL completed MEDENT ([facility]) pantoprazole 40 MG Delayed Release Oral Tablet [Protonix] Pr otonix 12/30/2019 12:00:00 AM EDT ORAL active M EDENT ([facility]) Sucralfate 100 MG/ML Oral Suspension [Carafate] Carafate 12/30/2019 12:00:00 AM EDT ORAL active MEDENT ([facility]) 24 HR Amphetamine aspartate 5 MG / Amphe tamine Sulfate 5 MG / Dextroamphetamine saccharate 5 MG / Dextroamphetamine Sulfate 5 MG Extended Release Oral Capsule [Adderall] Adderall XR 12/30/2019 12:00:00 AM EDT ORAL active MEDENT ([facility]) Sertraline 25 MG Oral Tablet [Zoloft] Zoloft 25 MG Zoloft 25 MG 06/29/2019 12:00:00 AM EDT active 1 tablet eCW1 ([facility]) buspirone hydrochloride 5 MG Oral Tablet BusPIRone HCl 5 MG BusPIRone HCl 5 MG 06/29/2019 12:00:00 AM EDT 1.0 {tablet} active BusPIRone HCl 5 MG eCW1 ([facility]) Sertraline 25 MG Oral Tablet [Zoloft] Zoloft 25 MG Zoloft 25 MG 06/29/2019 12:00:00 AM EDT 1.0 {tablet} active Zo loft 25 MG eCW1 ([facility]) Sertraline 25 MG Oral Tablet [Zoloft] Zoloft 25 MG Zoloft 25 MG 06/29/2019 12:00:00 AM EDT 1.0 {tablet} active Zo loft 25 MG eCW1 ([facility]) Sertraline 25 MG Oral Tablet [Zoloft] Zoloft 25 MG Zoloft 25 MG 06/29/2019 12:00:00 AM EDT 1.0 {tablet} active Zo loft 25 MG eCW1 ([facility]) Sertraline 25 MG Oral Tablet [Zoloft] Zoloft 25 MG Zoloft 25 MG 06/29/2019 12:00:00 AM EDT 1.0 {tablet} active Zo loft 25 MG eCW1 ([facility]) buspirone hydrochloride 5 MG Oral Tablet BusPIRone HCl 5 MG BusPIRone HCl 5 MG 06/29/2019 12:00:00 AM EDT 1.0 {tablet} active BusPIRone HCl 5 MG eCW1 ([facility]) buspirone hydrochloride 5 MG Oral Tablet BusPIRone HCl 5 MG BusPIRone HCl 5 MG 06/29/2019 12:00:00 AM EDT 1.0 {tablet} active BusPIRone HCl 5 MG eCW1 ([facility]) buspirone hydrochloride 5 MG Oral Tablet BusPIRone HCl 5 MG BusPIRone HCl 5 MG 06/29/2019 12:00:00 AM EDT 1.0 {tablet} active BusPIRone HCl 5 MG eCW1 ([facility]) Sertraline 25 MG Oral Tablet [Zoloft] Zoloft 25 MG Zoloft 25 MG 06/29/2019 12:00:00 AM EDT 1.0 {tablet} active Zo loft 25 MG eCW1 ([facility]) buspirone hydrochloride 5 MG Oral Tablet BusPIRone HCl 5 MG BusPIRone HCl 5 MG 06/29/2019 12:00:00 AM EDT 1.0 {tablet} active BusPIRone HCl 5 MG eCW1 ([facility]) buspirone hydrochloride 5 MG Oral Tablet BusPIRone HCl 5 MG BusPIRone HCl 5 MG 06/29/2019 12:00:00 AM EDT 1.0 {tablet} active BusPIRone HCl 5 MG eCW1 ([facility]) Sertraline 25 MG Oral Tablet [Zoloft] Zoloft 25 MG Zoloft 25 MG 06/29/2019 12:00:00 AM EDT 1.0 {tablet} active Zo loft 25 MG eCW1 ([facility]) buspirone hydrochloride 5 MG Oral Tablet BusPIRone HCl 5 MG BusPIRone HCl 5 MG 06/29/2019 12:00:00 AM EDT 1.0 {tablet} active BusPIRone HCl 5 MG eCW1 ([facility]) buspirone hydrochloride 5 MG Oral Tablet BusPIRone HCl 5 MG BusPIRone HCl 5 MG 06/29/2019 12:00:00 AM EDT active 1 tablet eCW1 ([facility]) Sertraline 25 MG Oral Tablet [Zoloft] Zoloft 25 MG Zoloft 25 MG 06/29/2019 12:00:00 AM EDT 1.0 {tablet} active Zo loft 25 MG eCW1 ([facility]) Sertraline 25 MG Oral Tablet [Zoloft] Zoloft 25 MG Zoloft 25 MG 06/29/2019 12:00:00 AM EDT active 1 tablet eCW1 ([facility]) buspirone hydrochloride 5 MG Oral Tablet BusPIRone HCl 5 MG BusPIRone HCl 5 MG 06/29/2019 12:00:00 AM EDT active 1 tablet eCW1 ([facility]) Sertraline 25 MG Oral Tablet [Zoloft] Zoloft 25 MG Zoloft 25 MG 06/29/2019 12:00:00 AM EDT 1.0 {tablet} active Zo loft 25 MG eCW1 ([facility]) buspirone hydrochloride 5 MG Oral Tablet BusPIRone HCl 5 MG BusPIRone HCl 5 MG 06/29/2019 12:00:00 AM EDT 1.0 {tablet} active BusPIRone HCl 5 MG eCW1 ([facility]) Sertraline 25 MG Oral Tablet [Zoloft] Zoloft 25 MG Zoloft 25 MG 06/29/2019 12:00:00 AM EDT active 1 tablet eCW1 ([facility]) Sertraline 25 MG Oral Tablet [Zoloft] Zoloft 25 MG Zoloft 25 MG 06/29/2019 12:00:00 AM EDT 1.0 {tablet} active Zo loft 25 MG eCW1 ([facility]) buspirone hydrochloride 5 MG Oral Tablet BusPIRone HCl 5 MG BusPIRone HCl 5 MG 06/29/2019 12:00:00 AM EDT active 1 tablet eCW1 ([facility]) buspirone hydrochloride 5 MG Oral Tablet BusPIRone HCl 5 MG BusPIRone HCl 5 MG 06/29/2019 12:00:00 AM EDT 1.0 {tablet} active BusPIRone HCl 5 MG eCW1 ([facility]) Amoxicillin 875 MG / Clavulanate 125 MG Oral Tablet Amoxicillin-Pot Clavulanate 875-125 MG Amoxicillin-Pot Clavulanate 875-125 MG 04/12/2019 12:00:00 AM ES T active 1 tablet eCW1 ([facility]) Amoxicillin 875 MG / Clavulanate 125 MG Oral Tablet Amoxicillin-Pot Clavulanate 875-125 MG Amoxicillin-Pot Clavulanate 875-125 MG 04/12/2019 12:00:00 AM ES T suspended 1 tablet eCW1 ([facility]) Amoxicillin 875 MG / Clavulanate 125 MG Oral Tablet Amoxicillin-Pot Clavulanate 875-125 MG Amoxicillin-Pot Clavulanate 875-125 MG 04/12/2019 12:00:00 AM ES T suspended 1 tablet eCW1 ([facility]) Vitamin 27-0.8 MG Vitamin 27-0.8 MG 2019 12:00:00 AM EST 1.0 {tablet} active Vi tamin 27-0.8 MG eCW1 ([facility]) Vitamin 27-0.8 MG Vitamin 27-0.8 MG 2019 12:00:00 AM EST active 1 tablet eCW1 ([facility]) Vitamin 27-0.8 MG Vitamin 27-0.8 MG 2019 12:00:00 AM EST 1.0 {tablet} active Vi tamin 27-0.8 MG eCW1 ([facility]) Vitamin 27-0.8 MG Vitamin 27-0.8 MG 2019 12:00:00 AM EST active 1 tablet eCW1 ([facility]) Vitamin 27-0.8 MG Vitamin 27-0.8 MG 2019 12:00:00 AM EST active 1 tablet eCW1 ([facility]) Fluoxetine 20 MG Oral Capsule [Prozac] PROzac 20 MG PROzac 2 0 MG 03/23/2019 12:00:00 AM EST suspended 1 cap divya eCW1 ([facility]) Vitamin 27-0.8 MG Vitamin 27-0.8 MG 2019 12:00:00 AM EST 1.0 {tablet} active Vi tamin 27-0.8 MG eCW1 ([facility]) Fluoxetine 20 MG Oral Capsule [Prozac] PROzac 20 MG PROzac 2 0 MG 03/23/2019 12:00:00 AM EST active 1 capsul e eCW1 ([facility]) Vitamin 27-0.8 MG Vitamin 27-0.8 MG 2019 12:00:00 AM EST 1.0 {tablet} active Vi tamin 27-0.8 MG eCW1 ([facility]) Vitamin 27-0.8 MG Vitamin 27-0.8 MG 2019 12:00:00 AM EST 1.0 {tablet} active Vi tamin 27-0.8 MG eCW1 ([facility]) Vitamin 27-0.8 MG Vitamin 27-0.8 MG 2019 12:00:00 AM EST active 1 tablet eCW1 ([facility]) Fluoxetine 20 MG Oral Capsule [Prozac] PROzac 20 MG PROzac 2 0 MG 03/23/2019 12:00:00 AM EST suspended 1 cap divya eCW1 ([facility]) Vitamin 27-0.8 MG Vitamin 27-0.8 MG 2019 12:00:00 AM EST active 1 tablet eCW1 ([facility]) Fluoxetine 20 MG Oral Capsule [Prozac] PROzac 20 MG PROzac 2 0 MG 03/23/2019 12:00:00 AM EST suspended 1 cap divya eCW1 ([facility]) Vitamin 27-0.8 MG Vitamin 27-0.8 MG 2019 12:00:00 AM EST 1.0 {tablet} active Vi tamin 27-0.8 MG eCW1 ([facility]) Vitamin 27-0.8 MG Vitamin 27-0.8 MG 2019 12:00:00 AM EST active 1 tablet eCW1 ([facility]) Fluoxetine 20 MG Oral Capsule [Prozac] PROzac 20 MG PROzac 2 0 MG 03/23/2019 12:00:00 AM EST active 1 capsul e eCW1 ([facility]) Vitamin 27-0.8 MG Vitamin 27-0.8 MG 2019 12:00:00 AM EST active 1 tablet eCW1 ([facility]) Vitamin 27-0.8 MG Vitamin 27-0.8 MG 2019 12:00:00 AM EST active 1 tablet eCW1 ([facility]) Fluoxetine 20 MG Oral Capsule [Prozac] PROzac 20 MG PROzac 2 0 MG 03/23/2019 12:00:00 AM EST active 1 capsul e eCW1 ([facility]) Vitamin 27-0.8 MG Vitamin 27-0.8 MG 2019 12:00:00 AM EST 1.0 {tablet} active Vi tamin 27-0.8 MG eCW1 ([facility]) Vitamin 27-0.8 MG Vitamin 27-0.8 MG 2019 12:00:00 AM EST 1.0 {tablet} active Vi tamin 27-0.8 MG eCW1 ([facility]) Vitamin 27-0.8 MG Vitamin 27-0.8 MG 2019 12:00:00 AM EST 1.0 {tablet} active Vi tamin 27-0.8 MG eCW1 ([facility]) Vitamin 27-0.8 MG Vitamin 27-0.8 MG 2019 12:00:00 AM EST active 1 tablet eCW1 ([facility]) Insurance Providers Payer name Policy type / Coverage type Policy ID Covered constitution party ID Covered constitution party's relationship to kan Policy Kan Plan Information [facility] [id number] [facility] [id number] [facility] HUMANA - O/P [id number] 01 [id number] O UNAVAILABLE UNAVAILA BLE HUMANA [facility] O [id number] S [id number] [facility] 2017 Commercial [id number] Family Dependent [id number] [facility] 2017 Commercial [id number] Family Dependent [id number] [facility] [id number] [employer] (2018) Health Maintenance Organization (HMO) [id number] Family Dependent [id number] [facility] 2018 Commercial [id number] Family Dependent [id number] [employer] (2018) Health Maintenance Organization (HMO) [id number] Family Dependent [id number] SELF PAY O UNAVAILABLE S UNAVAILA BLE SELF PAY ONLY [id number] SP [id number] [facility] [id number] [facility] [id number] [facility] [id number] Family Dependent [id number] Problems, Conditions, and Diagnoses Code Display Name Description Problem Type Effective Dates Data Source(s) 378359086 Uncomplicated moderate persistent asthma Uncomplicated moderate persistent asthma Problem 12/30/2019 12:00:00 AM EDT MEDENT ([facility]) [id number] Gastro-esophageal reflux disease with es ophagitis Gastro-esophageal reflux disease with esophagitis Problem 12/30/2019 12:00:00 AM EDT M EDENT ([facility]) [id number] Psoriasis Psoriasis Problem 12/30/2019 12:00:00 AM ED T MEDENT ([facility]) F41.9 Anxiety Anxiety Problem 06/29/2019 12:00:00 AM ED T eCW1 ([facility]) F41.9 Anxiety Anxiety Problem 06/29/2019 12:00:00 AM ED T eCW1 ([facility]) J30.9 Allergic rhinitis Allergic rhinitis Problem 05/11/2019 12:00:00 AM EST eCW1 ([facility]) J30.9 Allergic rhinitis Allergic rhinitis Problem 05/11/2019 12:00:00 AM EST eCW1 ([facility]) Z34.80 care Supervision of other normal P roblem 03/15/2019 12:00:00 AM EST eCW1 ([facility]) Z34.80 care Supervision of other normal P roblem 03/15/2019 12:00:00 AM EST eCW1 ([facility]) R928 Other abnormal and inconclusive findings on diagnostic imaging of breast Other abnormal and inconclusive findings on diagnostic imaging of breast Diagnosis 04/12/2020 04:52:00 PM [facility] N611 Abscess of the breast and nipple Abscess of the breast and nipple Diagnosis 04/12/2020 04:52:00 PM [facility] Surgeries/Procedures Procedure Description Date Indications Data Source(s) Injection, medroxyprogesterone acetate for contraceptive use , 150 mg 02/25/2020 12:00:00 AM EST eCW1 ([facility]) URINE-NO MICRO 10/01/2019 12:00:00 AM EDT eCW1 ([facility]) Immunization: Boostrix 0.5mL IM (TDAP) 09/08/2019 12:0 0:00 AM EDT eCW1 ([facility]) Injection: RhoGAM 300mcg/1.5mL IM (Rho [D] Immune Globulin H uman) 08/25/2019 12:00:00 AM EDT eCW1 ([facility]) OB Visit 07/07/2019 12:00:00 AM EDT e CW1 ([facility]) Office Visit, Est Pt., Level 3 PC 03/23/2019 12:00:00 AM EST eCW1 ([facility]) Results ID Date Data Source [id number] 04/14/2020 11:16:00 [place] [address] PHONE: [phone] FAX: [phone] Name .................. : DIMPLE Massey Acct Number.................. : [id number] ROOM. ................. : Number ................... : [id number] Stay type ............. : O/P Discharge Date......... ... : 04/12/20 Admit Date ......... : 04/12/20 Admit Phys .................... : [facility] Date of ....... : 1985 Family Phys ................... : NONSTAFF Phone .................. : [phone] Age ................................ : 34 Film# .................. .:[id number] Sex ................................. : F Unsigned transcriptions are preliminary reports and do not represent a medical or legal document BREAST RIGHT [id number] COMPLETE:04/12/20 20:00 ADB 3090 (TEST REASON: PAIN [...] for: FAITH MCPHERSON via fax Copy for: [address] [place] [address] Page 1 of 1 Name Value Range Interpretation Code Description Data Agnieszka rce(s) Supporting Document(s) ID Date Data Source [id number] 04/14/2020 11:16:00 AM [facility] [address] [place] [address] PHONE: [phone] FAX: [phone] Name .................. : DIMPLE Massey Acct Number.................. : [id number] ROOM. ................. : MR Number ................... : [id number] Stay type ............. : O/P Discharge Date......... ... : 04/12/20 Admit Date ......... : 04/12/20 Admit Phys .................... : [facility] Date of ....... : 1985 Family Phys ................... : NONSTAFF Phone .................. : [phone] Age ................................ : 34 Film# .................. .:[id number] Sex ................................. : F Unsigned transcriptions are preliminary reports and do not represent a medical or legal document BREAST LEFT [id number] COMPLETE:04/12/20 20:00 ADB 3089 (TEST REASON: DRAINAGE [...] for: BELLALUISITO MCPHERSON via fax Copy for: [address] [place] [address] REC Page 1 of 1 Name Value Range Interpretation Code Description Data Agnieszka rce(s) Supporting Document(s) ID Date Data Source [id number] 04/12/2020 04:02:00 PM EST [facility] ([facility]) Name Value Range Interpretation Code Description Data Agnieszka rce(s) Supporting Document(s) Bacteria identified in Wound shallow by Aerobe culture Laborator y test result Normal (applies to non-numeric results) [facility] ([facility]) <content>FULL REPORT IN LAB NOTES (eCW [...] STREP CULTURE 10/06/2019 05:44:43 AM EDT eCW1 ([facility]) Name Value Range Interpretation Code Description Data Agnieszka rce(s) Supporting Document(s) GROUP B STREP CULTURE eCW1 ([facility]) ID Date Data Source [id number] 07/30/2019 11:28:00 AM EDT [facility] ([facility], ) Name Value Range Interpretation Code Description Data Agnieszka rce(s) Supporting Document(s) Glucose tolerance 3 hours gestational panel - Serum or Plasma Laboratory test result [facility] ([facility], ) <content>GTT3 GESTATIONA 3HR GLU 3 HR GL U from 0515:[id number].</content>
<content>note:<nlbl:demographic_changed></content><b GESTATIONA 3HR GLU 3 HR GLU from 0515:[id number].</content>
<content></content> Laboratory test finding (navigational concept) 57 mg/dL Normal (applies to non-numeric results) [facility]) ID Date Data Source [id number] 07/30/2019 11:28:00 AM EDT [facility]) Name Value Range Interpretation Code Description Data Agnieszka rce(s) Supporting Document(s) Laboratory test finding (navigational concept) 57 mg/dL Normal (applies to non-numeric results) [facility]) ID Date Data Source [id number] 07/30/2019 10:26:00 AM EDT [facility]) Name Value Range Interpretation Code Description Data Agnieszka rce(s) Supporting Document(s) Glucose [Moles/volume] in Serum or Plasma --[address] XXX challenge Laboratory test result [facility]) <content>GTT3 GESTATIONA 2HR GLU 2 HR GL U from 0515:[id number].</content>
<content>note:<nlbl:demographic_changed></content><b GESTATIONA 2HR GLU 2 HR GLU from 0515:[id number].</content>
<content></content> 2 HR Glucose 114 mg/dL Normal (applies to non-numeric res ults) [facility]) ID Date Data Source [id number] 07/30/2019 10:26:00 AM EDT [facility]) Name Value Range Interpretation Code Description Data Agnieszka rce(s) Supporting Document(s) Glucose [Moles/volume] in Serum or Plasma --[address] XXX challenge 114 mg/dL Normal (applies to non-numeric results) [facility] ([facility]) <content>GTT3 GESTATIONA 2HR GLU 2 HR GL U from 0515:[id number].</content>
<content>note:<nlbl:demographic_changed></content><b GESTATIONA 2HR GLU 2 HR GLU from 0515:[id number].</content>
<content></content> ID Date Data Source [id number] 07/30/2019 09:27:00 AM EDT [facility] ([facility]) Name Value Range Interpretation Code Description Data Agnieszka rce(s) Supporting Document(s) Glucose [Mass/volume] in Serum or Plasma --1 hour post 50 g glucose PO Laboratory test result [facility] ([facility]) <content>GTT3 GESTATIONA 1HR GLU 1 HR GL UCOSE from 514:[id number].</content>
<content>note:<nlbl:demographic_changed></content><b GESTATIONA 1HR GLU 1 HR GLUCOSE from 514:[id number].</content>
<content></content> 1 HR Glucose 167 mg/dL Normal (applies to non-numeric res ults) [facility] ([facility]) ID Date Data Source [id number] 07/30/2019 09:27:00 AM EDT [facility] ([facility]) Name Value Range Interpretation Code Description Data Agnieszka rce(s) Supporting Document(s) 1 HR Glucose 167 mg/dL Normal (applies to non-numeric res ults) [facility] ([facility]) ID Date Data Source [id number] 07/30/2019 08:25:00 AM EDT [facility] ([facility]) Name Value Range Interpretation Code Description Data Agnieszka rce(s) Supporting Document(s) Glucose [Mass/volume] in Serum or Plasma --pre 75 g glucose PO 8 5 mg/dL Normal (applies to non-numeric results) [facility] ([facility]) <content>GTT3 GESTATIONA FASTING FAST GL U from 514:[id number].</content>
<content>note:<nlbl:demographic_changed></content><b GESTATIONA FASTING FAST GLU from 514:[id number].</content>
<content></content> ID Date Data Source [id number] 07/30/2019 08:25:00 AM EDT [facility]) Name Value Range Interpretation Code Description Data Agnieszka rce(s) Supporting Document(s) Glucose, Fasting 85 mg/dL Normal (applies to non-numeric results) [facility]) ID Date Data Source [id number] 07/30/2019 08:20:00 AM EDT [facility]) Name Value Range Interpretation Code Description Data Agnieszka rce(s) Supporting Document(s) QuantiFERON TB1 Ag Value 0.02 IU/ml Normal (applies to non -numeric results) [facility]) QuantiFERON Criteria Laboratory test result Norm al (applies to non-numeric results) [facility]) . The QuantiFERON-TB Gold Plus result is determined by subtracting the Nil value from either TB antigen (Ag) tube. The mitogen tube serves as a control for the test. QuantiFERON TB2 Ag Value 0.01 IU/ml Normal (applies to non -numeric results) [facility] ([facility]) QuantiFERON-TB Gold Plus Laboratory test result Normal (applies to non-numeric results) [facility]) . The specimen received for QuantiFERON testing was incubated by the ordering institution. Specific procedures outlined in our Directory of Services and in the package insert for the QuantiFERON Gold (In Tube) test must be followed to enable for proper stimulation of cells for the production of interferon gamma. Performed at: RN - [facility] [address] [id number] [employer]: Lalitha Almendarez MD, Phone: [phone] QuantiFERON Nil Value 0.02 IU/ml Normal (applies to non-nu meric results) [facility] ([facility]) QuantiFERON Mitogen Value Laboratory test result Normal (applies to non- numeric results) [facility]) ID Date Data Source [id number] 07/30/2019 08:20:00 AM EDT [facility] Name Value Range Interpretation Code Description Data Agnieszka rce(s) Supporting Document(s) Creatinine For GFR 0.51 mg/dL 0.55-1.30 Below low normal [facility] ([facility]) Blood Urea Nitrogen 4 mg/dL 7-18 Below low normal [facility] ([facility]) Glucose, Fasting 84 mg/dL 70-100 Normal (applies to non-numeric results) [facility] ([facility]) Sodium Level 140 meq/L 136-145 Normal (applies to non-numeric res ults) [facility] Glomerular Filtration Rate Laboratory test result Normal (applies to non- numeric results) [facility] ([facility]) <content>Units are mL/min/1.73 m2</content>
<content></content>
<content>Chronic Kidney Disease Staging per NKF:</content>
<content></content>
<content>Stage I & II GFR >=60 Normal to Mildly Decreased</content>
<content>Stage III GFR 30- 59 Moderately Decreased</content>
<content>Stage IV GFR 15-29 Severely Decreased</content>
<content>Stage V GFR <15 Very Little GFR Left</content>
<content>ESRD GFR <15 on VENDOR MANAGER</content>
<content></content> Potassium Serum 4.0 meq/L 3.5-5.1 Normal (applies to non-numeric results) [facility]) Anion Gap 8 meq/L 8-16 Normal (applies to non-numeric resul ts) [facility] ([facility]) Carbon Dioxide Level 25 meq/L 21-32 Normal (applies to non-num roxie results) [facility] ([facility]) Chloride Level 107 meq/L 98-107 Normal (applies to non-numeric r esults) [facility] ([facility]) Phosphorus Level 2.9 mg/dL 2.5-4.9 Normal (applies to non-numeric results) [facility] ([facility]) Calcium Level 8.0 mg/dL 8.5-10.1 Below low normal [facility] T ([facility]) ID Date Data Source [id number] 07/30/2019 08:20:00 AM EDT [facility] ([facility]) Name Value Range Interpretation Code Description Data Agnieszka rce(s) Supporting Document(s) Alkaline Phosphatase 63 U/L 45-117 Normal (applies to non-num roxie results) [facility] ([facility]) Ast/Sgot 10 U/L 7-37 Normal (applies to non-numeric resul ts) [facility] ([facility]) Alt/SGPT 13 U/L 12-78 Normal (applies to non-numeric resul ts) [facility] ([facility]) Total Protein 6.3 GM/DL 6.4-8.2 Below low normal [facility] T ([facility]) Albumin 2.7 GM/DL 3.2-5.2 Below low normal [facility] ( [facility]) Bilirubin,Total 0.2 mg/dL 0.2-1.0 Normal (applies to non-numeric results) [facility]) Bilirubin,Direct Laboratory test result 0.0-0.2 Normal ( applies to non-numeric results) [facility] ([facility]) Albumin/Globulin Ratio 0.8 1.2-2.2 Below low normal [facility] ([facility]) ID Date Data Source [id number] 07/30/2019 08:20:00 AM EDT [facility] ([facility]) Name Value Range Interpretation Code Description Data Agnieszka rce(s) Supporting Document(s) Red Blood Count 3.96 10 4.00-5.40 Below low normal [facility] ([facility]) White Blood Count 10.2 10 4.0-10.0 Above high normal [facility] ([facility]) Hemoglobin 11.9 g/dL 12.0-15.5 Below low normal [facility]) Hematocrit 37.0 % 36.0-47.0 Normal (applies to non-numeric resul ts) [facility] ([facility]) Mean Corpuscular Volume 93.4 fl 80.0-96.0 Normal ( applies to non-numeric results) [facility]) Mean Corpuscular Hemoglobin 30.1 pg 27.0-33.0 Norm al (applies to non-numeric results) [facility]) Red Cell Distribution Width 13.1 % 11.5-14.5 Norm al (applies to non-numeric results) [facility] ([facility]) Mean Corpuscular HGB Conc 32.2 g/dL 32.0-36.5 Normal (applies to non-numeric results) [facility] ([facility]) Platelet Count, Automated 301 10 150-450 Normal (applies to non-numeric results) [facility] ([facility]) Neutrophils % 64.9 % 36.0-66.0 Normal (applies to non-numeric re sults) [facility] ([facility]) Lymph % 20.4 % 24.0-44.0 Below low normal [facility] ( [facility]) Pine % 7.2 % 0.0-5.0 Above high normal [facility] ([facility]) Eos % 6.3 % 0.0-3.0 Above high normal [facility] ([facility]) Baso % 0.5 % 0.0-1.0 Normal (applies to non-numeric resul ts) [facility] ([facility]) Immature Granulocyte % 0.7 % 0-3.0 Normal (applies to non-n umeric results) [facility] ([facility]) Neutrophils # 6.6 10 1.5-8.5 Normal (applies to non-numeric re sults) [facility] ([facility]) Pine # 0.7 10 0.0-0.8 Normal (applies to non-numeric resul ts) [facility] ([facility]) Nucleated Red Blood Cell % 0.0 % 0-0 Normal (applies to n on-numeric results) [facility] ([facility]) Lymph # 2.1 10 1.5-5.0 Normal (applies to non-numeric resul ts) [facility] ([facility]) Baso # 0.1 10 0.0-0.2 Normal (applies to non-numeric resul ts) [facility] ([facility]) Eos # 0.6 10 0.0-0.5 Above high normal [facility] ([facility]) ID Date Data Source [id number] 07/30/2019 08:15:00 AM EDT [facility] ([facility], ) Name Value Range Interpretation Code Description Data Agnieszka rce(s) Supporting Document(s) Glucose, Fasting 85 mg/dL Normal (applies to non-numeric results) [facility]) 1 HR Glucose 167 mg/dL Normal (applies to non-numeric res ults) [facility] ([facility]) Laboratory test finding (navigational concept) 57 mg/dL Normal (applies to non-numeric results) [facility]) 2 HR Glucose 114 mg/dL Normal (applies to non-numeric res ults) [facility]) ID Date Data Source [id number] 07/30/2019 08:15:00 AM EDT [facility] Name Value Range Interpretation Code Description Data Agnieszka rce(s) Supporting Document(s) Glucose, Fasting 85 mg/dL Normal (applies to non-numeric results) [facility]) 1 HR Glucose 167 mg/dL Normal (applies to non-numeric res ults) [facility] ([facility]) Laboratory test finding (navigational concept) 57 mg/dL Normal (applies to non-numeric results) [facility]) 2 HR Glucose 114 mg/dL Normal (applies to non-numeric res ults) [facility]) ID Date Data Source RUBELLA IMMUNE STATUS IgG 03/29/2019 12:00:00 AM EST eCW1 ([facility]) Name Value Range Interpretation Code Description Data Agnieszka rce(s) Supporting Document(s) IMMUNE IMMUNE RUBELLA IgG QUALITATIVE eCW1 ( [facility]) ID Date Data Source SYPHILIS ANTIBODY (RPR SCREEN) 03/29/2019 12:00:00 AM EST eC W1 ([facility]) Name Value Range Interpretation Code Description Data Agnieszka rce(s) Supporting Document(s) NONREACTIVE NONREACTIVE SYPHILIS eCW1 ([facility]) ID Date Data Source HEPATITIS C ANTIBODY INDEX 03/29/2019 12:00:00 AM EST eCW1 ( [facility]) Name Value Range Interpretation Code Description Data Agnieszka rce(s) Supporting Document(s) 0.0 <0.8 HEPATITIS C VIRUS PRAVIN INDEX eC W1 ([facility]) ID Date Data Source CHLAMYDIA & GC DNA AMPLIFICAT 03/29/2019 12:00:00 AM EST eCW 1 ([facility]) Name Value Range Interpretation Code Description Data Agnieszka rce(s) Supporting Document(s) Chlamydia trachomatis rRNA [Presence] in Unspecified specimen by Probe and target amplification method NEGATIVE NEGATIVE CHLAMYDIA DNA AMPLIFICATION eCW1 ([facility]) ID Date Data Source Type and Screen Prenatal1 03/29/2019 12:00:00 AM EST eCW1 ([facility]) Name Value Range Interpretation Code Description Data Agnieszka rce(s) Supporting Document(s) POSITIVE AB SCREEN PNP1 GEL (VIS) eCW1 ([facility]) ID Date Data Source [id number] 03/07/2019 11:45:00 AM EST [facility] ([facility]) Name Value Range Interpretation Code Description Data Agnieszka rce(s) Supporting Document(s) Reflex Urine Culture Laboratory test result Norm al (applies to non-numeric results) [facility] ([facility]) FULL REPORT IN LAB NOTES (eCW and [facility] ). NO GROWTH ID Date Data Source [id number] 03/07/2019 11:45:00 AM EST [facility] ([facility]) Name Value Range Interpretation Code Description Data Agnieszka rce(s) Supporting Document(s) Color, Urine RFX Laboratory test result Normal ( applies to non-numeric results) [facility] ([facility]) Appearance, Urine RFX Laboratory test result Nor mal (applies to non-numeric results) [facility] ([facility]) Specific [place] Ur Auto RFX 1.005 1.002-1.035 Nor mal (applies to non-numeric results) [facility] ([facility]) Protein, Urine Auto RFX Laboratory test result N ormal (applies to non-numeric results) [facility] ([facility]) PH,Urine RFX 7.0 units 5.0-9.0 Normal (applies to non-numeric res ults) [facility] ([facility]) Ketone, Urine Auto RFX Laboratory test result No rmal (applies to non-numeric results) [facility] ([facility]) Glucose, Urine (Ua) Auto RFX Laboratory test result Normal (applies to non- numeric results) [facility] ([facility]) Urobilinogen, Urine Auto RFX 0.2 mg/dL 0.0-2.0 Nor mal (applies to non-numeric results) [facility] ([facility]) Bilirubin, Urine Auto RFX Laboratory test result Normal (applies to non- numeric results) [facility] ([facility]) Nitrite, Urine Auto RFX Laboratory test result N ormal (applies to non-numeric results) [facility] ([facility]) Leukocyte Esterase Ur Auto RFX Laboratory test result Abov e high normal [facility] ([facility]) Blood, Urine Blood RFX Laboratory test result Above high n ormal [facility] ([facility]) RBC, Urine Auto RFX 34 /HPF 0-3 Above high normal [facility] ([facility]) WBC, Urine Auto RFX 5 /HPF 0-3 Above high normal [facility] Hyaline Cast, Urine Auto RFX 0 /LPF 0-1 Normal (appl ies to non-numeric results) [facility] Squam Epithelial Cell Ur Aurfx 10 /HPF 0-6 N ormal (applies to non-numeric results) [facility] ([facility]) Bacteria, Urine Auto RFX Laboratory test result Above high normal [facility] ([facility]) ID Date Data Source [id number] 03/07/2019 10:51:00 AM EST [facility]) Name Value Range Interpretation Code Description Data Agnieszka rce(s) Supporting Document(s) Choriogonadotropin.beta subunit [Moles/volume] in Serum or P lasma 07882 MIU/ML Normal (applies to non-numeric results) [facility]) GESTATIONAL AGE APPROXIMATE HCG RANGE (MIU/ML) [...] monitoring the treatment of cancer patients. Siemens Ashby methodology. ID Date Data Source [id number] 03/03/2019 07:47:00 PM EST [facility] ([facility]) Name Value Range Interpretation Code Description Data Agnieszka rce(s) Supporting Document(s) Rh immune globulin screen [interpretation] Laboratory test result [facility] ([facility]) TRANSFUSED PRODUCT: RHOGAM COUNT: 1 ID Date Data Source [id number] 03/03/2019 07:15:00 PM EST [facility] ([facility]) Name Value Range Interpretation Code Description Data Agnieszka rce(s) Supporting Document(s) Wet Prep Laboratory test result Normal (applies to non-n umeric results) [facility] ([facility]) FEW EPITHELIAL CELLS PRESENT FEW WBC FEW LONG RODS PRESENT ID Date Data Source [id number] 03/03/2019 06:50:00 PM EST [facility] ([facility]) Name Value Range Interpretation Code Description Data Agnieszka rce(s) Supporting Document(s) Chlamydia Dna Amplification Laboratory test result Normal (applies to non- numeric results) [facility] ([facility]) A negative test result does not exclude the possibility of infection because test results may be affected by improper specimen collection, technical error, specimen mix-up, concurrent antibiotic therapy, or the number of organisms in the specimen which may be below the sensitivity of the test. GC Dna Amplification Laboratory test result Norm al (applies to non-numeric results) [facility] ([facility]) A negative test result does not exclude the possibility of infection because test results may be affected by improper specimen collection, technical error, specimen mix-up, concurrent antibiotic therapy, or the number of organisms in the specimen which may be below the sensitivity of the test. ID Date Data Source [id number] 03/03/2019 05:25:00 PM EST [facility] ([facility]) Name Value Range Interpretation Code Description Data Agnieszka rce(s) Supporting Document(s) Blood Type Laboratory test result Normal (applies to non-n umeric results) [facility] ([facility]) AB Screen (Indirect Mekhi)Vis Laboratory test result Normal (applies to non- numeric results) [facility] ([facility]) ID Date Data Source [id number] 03/03/2019 05:24:00 PM EST [facility] ([facility]) Name Value Range Interpretation Code Description Data Agnieszka rce(s) Supporting Document(s) Choriogonadotropin.beta subunit [Moles/volume] in Serum or Plasm a 4765 MIU/ML Normal (applies to non-numeric results) [facility] ([facility]) GESTATIONAL AGE APPROXIMATE HCG RANGE (MIU/ML) [...] monitoring the treatment of cancer patients. Siemens Ashby methodology. ID Date Data Source [id number] 03/03/2019 05:24:00 PM EST [facility] ([facility]) Name Value Range Interpretation Code Description Data Agnieszka rce(s) Supporting Document(s) Appearance, Urine RFX Laboratory test result Nor mal (applies to non-numeric results) [facility]) Color, Urine RFX Laboratory test result Normal ( applies to non-numeric results) [facility] ([facility]) Protein, Urine Auto RFX Laboratory test result N ormal (applies to non-numeric results) [facility] ([facility]) PH,Urine RFX 6.0 units 5.0-9.0 Normal (applies to non-numeric res ults) [facility] ([facility]) Specific [place] Ur Auto RFX 1.006 1.002-1.035 Nor mal (applies to non-numeric results) [facility] Urobilinogen, Urine Auto RFX 0.2 mg/dL 0.0-2.0 Nor mal (applies to non-numeric results) [facility]) Ketone, Urine Auto RFX Laboratory test result No rmal (applies to non-numeric results) [facility] ([facility]) Glucose, Urine (Ua) Auto RFX Laboratory test result Normal (applies to non- numeric results) [facility] ([facility]) Leukocyte Esterase Ur Auto RFX Laboratory test result Normal (applies to non- numeric results) [facility] ([facility]) Nitrite, Urine Auto RFX Laboratory test result N ormal (applies to non-numeric results) [facility] ([facility]) Bilirubin, Urine Auto RFX Laboratory test result Normal (applies to non- numeric results) [facility] ([facility]) WBC, Urine Auto RFX 3 /HPF 0-3 Normal (applies to non-nume hailey results) [facility] ([facility]) RBC, Urine Auto RFX 2 /HPF 0-3 Normal (applies to non-nume hailey results) [facility]) Blood, Urine Blood RFX Laboratory test result Above high n ormal [facility] ([facility]) Bacteria, Urine Auto RFX Laboratory test result Above high normal [facility] ([facility]) Transitional Epithelial AU RFX Laboratory test result Normal (applies to non- numeric results) [facility] ([facility]) Squam Epithelial Cell Ur Aurfx 7 /HPF 0-6 N ormal (applies to non-numeric results) [facility]) Hyaline Cast, Urine Auto RFX 0 /LPF 0-1 Normal (appl ies to non-numeric results) [facility] ([facility]) ID Date Data Source [id number] 03/03/2019 05:24:00 PM EST [facility] ([facility]) Name Value Range Interpretation Code Description Data Agnieszka rce(s) Supporting Document(s) Hemoglobin 13.8 g/dL 12.0-15.5 Normal (applies to non-numeric resul ts) [facility] ([facility]) Red Blood Count 4.67 10 4.00-5.40 Normal (applies to non-numeric results) [facility] ([facility]) White Blood Count 10.3 10 4.0-10.0 Above high normal [facility] ([facility]) Hematocrit 42.7 % 36.0-47.0 Normal (applies to non-numeric resul ts) [facility] ([facility]) Mean Corpuscular Hemoglobin 29.6 pg 27.0-33.0 Norm al (applies to non-numeric results) [facility] ([facility]) Mean Corpuscular Volume 91.4 fl 80.0-96.0 Normal ( applies to non-numeric results) [facility] ([facility]) Mean Corpuscular HGB Conc 32.3 g/dL 32.0-36.5 Normal (applies to non-numeric results) [facility] ([facility]) Red Cell Distribution Width 12.3 % 11.5-14.5 Norm al (applies to non-numeric results) [facility] ([facility]) Platelet Count, Automated 401 10 150-450 Normal (applies to non-numeric results) [facility] ([facility]) Lymph % 24.7 % 24.0-44.0 Normal (applies to non-numeric resul ts) [facility] ([facility]) Pine % 8.2 % 0.0-5.0 Above high normal [facility] ([facility]) Neutrophils % 60.4 % 36.0-66.0 Normal (applies to non-numeric re sults) [facility] ([facility]) Baso % 0.9 % 0.0-1.0 Normal (applies to non-numeric resul ts) [facility] ([facility]) Eos % 5.5 % 0.0-3.0 Above high normal [facility] ([facility]) Immature Granulocyte % 0.3 % 0-3.0 Normal (applies to non-n umeric results) [facility] ([facility]) Lymph # 2.6 10 1.5-5.0 Normal (applies to non-numeric resul ts) [facility] ([facility]) Nucleated Red Blood Cell % 0.0 % 0-0 Normal (applies to n on-numeric results) [facility] ([facility]) Neutrophils # 6.2 10 1.5-8.5 Normal (applies to non-numeric re sults) [facility] ([facility]) Baso # 0.1 10 0.0-0.2 Normal (applies to non-numeric resul ts) [facility] ([facility]) Pine # 0.9 10 0.0-0.8 Above high normal [facility] ([facility]) Eos # 0.6 10 0.0-0.5 Above high normal [facility] ([facility]) Procedure Social History Code Duration Value Status Description Data Source(s ) Smoking 10/08/2019 12:00:00 AM EDT Never Smoker completed Never S moker eCW1 ([facility]) Smoking 10/08/2019 12:00:00 AM EDT Never Smoker completed Never S moker eCW1 ([facility]) Smoking 10/08/2019 12:00:00 AM EDT Never Smoker completed Never S moker eCW1 ([facility]) Smoking 10/08/2019 12:00:00 AM EDT Never Smoker completed Never S moker eCW1 ([facility]) Smoking 10/08/2019 12:00:00 AM EDT Never Smoker completed Never S moker eCW1 ([facility]) Smoking 10/08/2019 12:00:00 AM EDT Never Smoker completed Never S moker eCW1 ([facility]) Smoking 10/01/2019 12:00:00 AM EDT Never Smoker completed Never S moker eCW1 ([facility]) Smoking 08/31/2019 12:00:00 AM EDT Never Smoker completed Never S moker eCW1 ([facility]) Smoking 08/11/2019 12:00:00 AM EDT Never Smoker completed Never S karen eCW1 ([facility]) Vital Signs ID Date Data Source UNK Name Value Range Interpretation Code Description Data Source(s) [place] body weight 130 [lb_av] 130 [lb_av] [facility] T ([facility]) Oxygen saturation in Arterial blood by Pulse oximetry 121 % 121 % [facility] ([facility]) Body temperature 99.8 [degF] 99.8 [degF] [facility] ([facility]) Respiratory rate 18 /min 18 /min [facility] ( [facility]) Heart rate 99 /min 99 /min [facility] ([facility]) Body mass index (BMI) [Ratio] 26.3 kg/m2 26.3 k g/m2 [facility] ([facility]) Body weight 163.00 [lb_av] 163.00 [lb_av] [facility] T ([facility]) Body height 66 [in_i] 66 [in_i] [facility] ([facility]) 5'6" Diastolic blood pressure 87 mm[Hg] 87 mm[Hg] [facility] ([facility]) Systolic blood pressure 138 mm[Hg] 138 mm[Hg] M EDENT ([facility]) [place] body weight 130 [lb_av] 130 [lb_av] [facility] T ([facility]) Oxygen saturation in Arterial blood by Pulse oximetry 96 % 96 % [facility] ([facility]) Body temperature 98.9 [degF] 98.9 [degF] [facility] ([facility]) Respiratory rate 18 /min 18 /min [facility] ( [facility]) Heart rate 103 /min 103 /min [facility] ([facility]) Body mass index (BMI) [Ratio] 26.5 kg/m2 26.5 k g/m2 [facility] ([facility]) Body weight 164.00 [lb_av] 164.00 [lb_av] [facility] T ([facility]) Body height 66 [in_i] 66 [in_i] [facility] ([facility]) 5'6" Diastolic blood pressure 64 mm[Hg] 64 mm[Hg] [facility] ([facility]) Systolic blood pressure 122 mm[Hg] 122 mm[Hg] [facility] ([facility]) [place] body weight 130 [lb_av] 130 [lb_av] [facility] T ([facility]) Oxygen saturation in Arterial blood by Pulse oximetry 99 % 99 % [facility] ([facility]) Body temperature 99.0 [degF] 99.0 [degF] [facility] ([facility]) Respiratory rate 18 /min 18 /min [facility] ( [facility]) Heart rate 99 /min 99 /min [facility] ([facility]) Body mass index (BMI) [Ratio] 26.9 kg/m2 26.9 k g/m2 [facility] ([facility]) Body weight 166.38 [lb_av] 166.38 [lb_av] [facility] T ([facility]) Body height 66 [in_i] 66 [in_i] [facility] ([facility]) 5'6" Diastolic blood pressure 70 mm[Hg] 70 mm[Hg] [facility] ([facility]) Systolic blood pressure 112 mm[Hg] 112 mm[Hg] [facility] ([facility]) Body weight 73.483 kg 73.483 kg [facility] ([facility], ) [place] body weight 130 [lb_av] 130 [lb_av] MED[facility] T ([facility], ) Body mass index (BMI) [Ratio] 26.1 kg/m2 26.1 k g/m2 [facility] ([facility], ) Body weight 162.00 [lb_av] 162.00 [lb_av] [facility], [facility] Body height 66 [in_i] 66 [in_i] [facility] ([facility], ) 5'6" Diastolic blood pressure 60 mm[Hg] 60 mm[Hg] [facility] ([facility], ) Systolic blood pressure 120 mm[Hg] 120 mm[Hg] [facility] ([facility], ) [place] body weight 130 [lb_av] 130 [lb_av] [facility] T ([facility]) Oxygen saturation in Arterial blood by Pulse oximetry 97 % 97 % [facility] ([facility]) Body temperature 99.1 [degF] 99.1 [degF] [facility] Respiratory rate 18 /min 18 /min [facility] ( [facility]) Heart rate 66 /min 66 /min [facility] ([facility]) Body mass index (BMI) [Ratio] 25.6 kg/m2 25.6 k g/m2 [facility] ([facility]) Body weight 158.38 [lb_av] 158.38 [lb_av] [facility] T ([facility]) Body height 66 [in_i] 66 [in_i] [facility] ([facility]) 5'6" Diastolic blood pressure 68 mm[Hg] 68 mm[Hg] [facility] ([facility]) Systolic blood pressure 114 mm[Hg] 114 mm[Hg] M EDENT ([facility]) Diastolic blood pressure 70 mm[Hg] 70 mm[Hg] eCW1 ([facility]) Systolic blood pressure 108 mm[Hg] 108 mm[Hg] e CW1 ([facility]) Body mass index (BMI) [Ratio] 28.356 kg/m2 28.3 56 kg/m2 [facility] ([facility]) Body height 65 [in_i] 65 [in_i] eCW1 ([facility]) Body weight 170.4 [lb_av] 170.4 [lb_av] W1 ([facility]) Diastolic blood pressure 62 mm[Hg] 62 mm[Hg] eCW1 ([facility]) Systolic blood pressure 118 mm[Hg] 118 mm[Hg] e CW1 ([facility]) Body mass index (BMI) [Ratio] 29.122 kg/m2 29.1 22 kg/m2 [facility] ([facility]) Body height 65 [in_i] 65 [in_i] eCW1 ([facility]) Body weight 175 [lb_av] 175 [lb_av] eCW1 ([facility]) Diastolic blood pressure 72 mm[Hg] 72 mm[Hg] eCW1 ([facility]) Systolic blood pressure 110 mm[Hg] 110 mm[Hg] e CW1 ([facility]) Body mass index (BMI) [Ratio] 29.587 kg/m2 29.5 87 kg/m2 eCW1 ([facility]) Body height 65 [in_i] 65 [in_i] eCW1 ([facility]) Body weight 177.8 [lb_av] 177.8 [lb_av] eCW1 ([facility]) Diastolic blood pressure 64 mm[Hg] 64 mm[Hg] eCW1 ([facility]) Systolic blood pressure 116 mm[Hg] 116 mm[Hg] e CW1 ([facility]) Body mass index (BMI) [Ratio] 28.955 kg/m2 28.9 55 kg/m2 eCW1 ([facility]) Body height 65 [in_i] 65 [in_i] eCW1 ([facility]) Body weight 174 [lb_av] 174 [lb_av] eCW1 ([facility]) Diastolic blood pressure 72 mm[Hg] 72 mm[Hg] eCW1 ([facility]) Systolic blood pressure 106 mm[Hg] 106 mm[Hg] e CW1 ([facility]) Body temperature 98.8 [degF] 98.8 [degF] eCW1 ( [facility]) Respiratory rate 18 /min 18 /min eCW1 ([facility]) Heart rate 104 /min 104 /min eCW1 ([facility]) Body mass index (BMI) [Ratio] 28.29 kg/m2 28.29 kg/m2 eCW1 ([facility]) Body height 65 [in_us] 65 [in_us] eCW1 ([facility]) Body weight Measured 170 [lb_av] 170 [lb_av] eC W1 ([facility]) Diastolic blood pressure 78 mm[Hg] 78 mm[Hg] eCW1 ([facility]) Systolic blood pressure 112 mm[Hg] 112 mm[Hg] e CW1 ([facility]) Body mass index (BMI) [Ratio] 28.456 kg/m2 28.4 56 kg/m2 eCW1 ([facility]) Body height 65 [in_i] 65 [in_i] eCW1 ([facility]) Body weight 171 [lb_av] 171 [lb_av] eCW1 ([facility]) Diastolic blood pressure 68 mm[Hg] 68 mm[Hg] eCW1 ([facility]) Systolic blood pressure 118 mm[Hg] 118 mm[Hg] e CW1 ([facility]) Body mass index (BMI) [Ratio] 28.19 kg/m2 28.19 kg/m2 eCW1 ([facility]) Body height 65 [in_us] 65 [in_us] eCW1 ([facility]) Body weight Measured 169.4 [lb_av] 169.4 [lb_av ] eCW1 ([facility]) Diastolic blood pressure 78 mm[Hg] 78 mm[Hg] eCW1 ([facility]) Systolic blood pressure 122 mm[Hg] 122 mm[Hg] e CW1 ([facility]) Body mass index (BMI) [Ratio] 26.759 kg/m2 26.7 59 kg/m2 eCW1 ([facility]) Body height 65 [in_us] 65 [in_us] eCW1 ([facility]) Body weight Measured 160.8 [lb_av] 160.8 [lb_av ] eCW1 ([facility]) Diastolic blood pressure 80 mm[Hg] 80 mm[Hg] eCW1 ([facility]) Systolic blood pressure 119 mm[Hg] 119 mm[Hg] e CW1 ([facility]) Body temperature 97.8 [degF] 97.8 [degF] eCW1 ( [facility]) Respiratory rate 18 /min 18 /min eCW1 ([facility]) Heart rate 103 /min 103 /min eCW1 ([facility]) Body mass index (BMI) [Ratio] 27.45 kg/m2 27.45 kg/m2 eCW1 ([facility]) Body height 65 [in_us] 65 [in_us] eCW1 ([facility]) Body weight Measured 165 [lb_av] 165 [lb_av] eC W1 ([facility]) Body height 65 [in_us] 65 [in_us] eCW1 ([facility]) Body weight Measured 158.4 [lb_av] 158.4 [lb_av ] eCW1 ([facility]) Diastolic blood pressure 74 mm[Hg] 74 mm[Hg] eCW1 ([facility]) Systolic blood pressure 112 mm[Hg] 112 mm[Hg] e CW1 ([facility]) Body mass index (BMI) [Ratio] 26.359 kg/m2 26.3 59 kg/m2 eCW1 ([facility]) Diastolic blood pressure 79 mm[Hg] 79 mm[Hg] eCW1 ([facility]) Systolic blood pressure 113 mm[Hg] 113 mm[Hg] e CW1 ([facility]) Body temperature [degF] eCW1 ([facility]) Respiratory rate 16 /min 16 /min eCW1 ([facility]) Heart rate 99 /min 99 /min eCW1 ([facility]) Body mass index (BMI) [Ratio] 26.46 kg/m2 26.46 kg/m2 eCW1 ([facility]) Body height 65 [in_us] 65 [in_us] eCW1 ([facility]) Body weight Measured 159 [lb_av] 159 [lb_av] eC W1 ([facility]) Diastolic blood pressure 70 mm[Hg] 70 mm[Hg] eCW1 ([facility]) Systolic blood pressure 120 mm[Hg] 120 mm[Hg] e CW1 ([facility]) Body mass index (BMI) [Ratio] 26.22 kg/m2 26.22 kg/m2 eCW1 ([facility]) Body height 65 [in_us] 65 [in_us] eCW1 ([facility]) Body weight Measured 157.6 [lb_av] 157.6 [lb_av ] eCW1 ([facility]) Diastolic blood pressure 76 mm[Hg] 76 mm[Hg] eCW1 ([facility]) Systolic blood pressure 126 mm[Hg] 126 mm[Hg] e CW1 ([facility]) Body mass index (BMI) [Ratio] 26.46 kg/m2 26.46 kg/m2 eCW1 ([facility]) Body height 65 [in_us] 65 [in_us] eCW1 ([facility]) Body weight Measured 159 [lb_av] 159 [lb_av] eC W1 ([facility]) Patient Treatment Plan of Care Planned Activity Planned Date Details Description Data Source (s) buspirone hydrochloride 5 MG Oral Tablet 06/29/2019 12:00:00 AM EDT eCW1 ([facility]) Sertraline 25 MG Oral Tablet [Zoloft] 06/29/2019 12:00:00 AM EDT eCW1 ([facility]) Amoxicillin 875 MG / Clavulanate 125 MG Oral Tablet 04/12/19 12:00:00 AM EST eCW1 ([facility]) Vitamin 27-0.8 MG 03/23/2019 12:00:00 AM EST eCW1 ([facility]) Vitamin 27-0.8 MG 03/23/2019 12:00:00 AM EST eCW1 ([facility]) Fluoxetine 20 MG Oral Capsule [Prozac] 03/23/2019 12:00:00 AM EST eCW1 ([facility]) Vitamin 27-0.8 MG 03/23/2019 12:00:00 AM EST eCW1 ([facility])
[2020-04-19] MEDS ORDERED: VANCOMYCIN HCL 750 MG, VIAL MATE ADAPTER 1 EACH in D5W 250 ML IV ONE ×2 (21:00→22:00)
--- NOTE | 2020-04-19 23:24 | HPEPDOC ---
[facility] Medical History & Physical Date of Admission Apr 19, 2020 Date of Service: Apr 19, 2020 History and Physical CHIEF COMPLAINT: R. breast pain HISTORY OF PRESENT ILLNESS: Patient is 34 year old female with PMH psoriasis is being admitted post R. breast abscess drainage with plastic surgery. Patient reported b/l breast pain for about 2 weeks and had her L. breast drained/treated with Bactrim last through her PCP. Culture reportedly +MRSA but did not improve with Bactrim. She saw Dr. Jordan today and underwent drainage of her R. breast. Hospitalist is ask to keep patient overnight and manage her antibiotics. Patient report soreness of the breast but otherwise no other acute physical complaints. PAST MEDICAL HISTORY: Refer to [facility] PAST SURGICAL HISTORY: Tonsillectomy and adenoidectomies R. breast abscess drainage SOCIAL HISTORY: Social alcohol use. Denies tobacco or illicit drug use. FAMILY HISTORY: Patient is a foster child and does not know ALLERGIES: Please see below. REVIEW OF SYSTEMS: 10 point review of system negative except as stated in HPI HOME MEDICATIONS: Please see below. PHYSICAL EXAMINATION: General: Alert, mild discomfort from surgical pain Eyes: Normal sclera, EOMI HENT: Atraumatic Cardiovascular: Normal rate, normal rhythm. Pulmonary: Clear to auscultation b/l, no wheezing GI: Soft, nontender, nondistended Skin: Warm and dry. Small suture site inferior to R. breast, no active discharge nor surrounding erythema. Site covered with dressing c/d/i. Neuro: CN grossly intact. No focal deficits. Strengths equal b/l. Psych: oriented x 3 LABORATORY DATA: See below. MICROBIOLOGY: Please see below. ASSESSMENT AND PLAN: 1. B/l breast abscess s/p R. breast drainage today - MRSA of L. breast last week, failed Bactrim outpatient therapy. - Culture pending for R. breast abscess. Will cover with IV Vancomycin for now. - If improve, transition to PO abx tomorrow and discharge to follow up with culture results. - Contact Dr. Jordan with there are questions about surgical site or management plans. - c/w pain control overnight. 2. Psoriasis - follow up with PCP outpatient. DVT ppx: HSQ and SCD Code status: Full code Vital Signs Vital Signs Date Time Temp Pulse Resp B/P (MAP) Pulse Ox O2 Delivery O2 Flow Rate FiO2 2/3/21 20:00 94 18 124/76 (92) 99 Room Air 04/19/20 19:50 97.5 Laboratory Data Labs 24H Laboratory Tests 2 04/19/20 10:15: Coronavirus (COVID-19)(PCR) NEGATIVE Microbiology Microbiology 04/19/20 Gram Stain, Received Pending 04/19/20 Wound Culture, Received Pending 04/19/20 Anaerobic Culture, Received Pending Home Medications Scheduled No.137/Iron/Folic Acd ( Vitamin Tablet) 1 Each Tablet, 1 TAB PO DAILY Sulfamethoxazole/Trimethoprim (Bactrim Ds Tablet) 1 Each Tablet, 1 TAB PO BID Scheduled PRN Hydrocodone/Acetaminophen (Hydrocodone-Acetamin 5-325 mg) 1 Each Tablet, 1 TAB PO Q6H PRN for PAIN Miscellaneous Medications Buspirone HCl (Buspirone HCl) 5 Mg Tablet Montelukast Sodium (Montelukast Sodium) 10 Mg Tablet Pantoprazole Sodium (Pantoprazole Sodium) 40 Mg Tablet. Secukiangelaumab (Cosentyx Pen (2 Pens)) 150 Mg/1 Ml Pen.injctr Allergies Coded Allergies: aspirin (Verified Allergy, Unknown, 04/19/20) A-FIB/CHADSVASC A-FIB History Current/History of A-Fib/PAF?: No BIANCA GALLO MD Apr 19, 2020 23:24
[2020-04-20] MEDS: VANCOMYCIN HCL 1,000 MG, VIAL MATE ADAPTER 1 EACH in D5W 250 ML IV SCH ×2 (05:02→12:27)
[2020-04-20 06:00] VITALS: BP 110/69
[2020-04-20] MEDS ORDERED: HEPARIN SOD (PORCINE) 5000UNITS/ML 1ML VIAL/SYRINGE SC SCH (06:00)
[2020-04-20 06:26] LABS: BASO % 0.1 % (0.0-1.0); HEMATOCRIT 39.7 % (36.0-47.0); HEMOGLOBIN 12.7 g/dl (12.0-15.5); LYMPH # 1.1 10^3/uL (1.5-5.0); LYMPH % 9.3 % (24.0-44.0); MEAN CORPUSCULAR HEMOGLOBIN 28.2 pg (27.0-33.0); MEAN CORPUSCULAR VOLUME 88.2 fl (80.0-96.0); MONO # 0.4 10^3/uL (0.0-0.8); NEUTROPHILS # 10.7 10^3/uL (1.5-8.5); PLATELET COUNT, AUTOMATED 386 10^3/uL (150-450); WHITE BLOOD COUNT 12.3 10^3/uL (4.0-10.0)
[2020-04-20 06:43] LABS: BLOOD UREA NITROGEN 15 MG/DL (7-18); CALCIUM LEVEL 9.1 MG/DL (8.5-10.1); CARBON DIOXIDE LEVEL 24 MEQ/L (21-32); CHLORIDE LEVEL 105 MEQ/L (98-107); CREATININE FOR GFR 1.01 MG/DL (0.55-1.30); GLOMERULAR FILTRATION RATE > 60.0 (>60); GLUCOSE, FASTING 227 MG/DL (70-100); SODIUM LEVEL 136 MEQ/L (136-145)
[2020-04-20] MEDS ORDERED: DOXY-350 PO (12:02)
--- NOTE | 2020-04-20 14:07 | IPNPDOC ---
Subjective Date Seen The patient was seen on 04/20/20. Subjective Chief Complaint/HPI 34-year-old lady with past medical history of GERD admitted yesterday for observation after right breast incision and drainage. Patient is doing well postop. Her pain markedly improved. Wound cultures and abscess cavity specimen were sent for evaluation. Patient has mild leukocytosis which is expected. She is on broad-spectrum antibiotics at this time for treatment of presumed MRSA. She was able to tolerate food yesterday. Other systems Alert and oriented 3 Breathing comfortably on room air Right breast is much softer comparing to yesterday. There is small incision at the right infra-areolar area with a Roxanna drain sticking out. There is very minimal serosanguineous drainage from the area. The left breast is unremarkable Abdomen is nondistended. Assessment /Plan Assessment 34 years old female admitted post R breast I&D done on 04/19/[address] or right breast deep abscess - IV abx per Med Team, transition to oral abx outpatient covering MRSA - please give 1 pm dose prior to discharge - please keep the roxanna drain in place - Clean gauze to the wound, keep the surgical bra on - f/u in clinic with me on Friday04/24/20 at 1 pm - plan discussed with Nursing staff Plan/VTE VTE Prophylaxis Ordered?: Yes VS, I&O, 24H, Fishbone Vital Signs/I&O Vital Signs Date Time Temp Pulse Resp B/P (MAP) Pulse Ox O2 Delivery O2 Flow Rate FiO2 04/20/20 06:00 97.9 75 17 110/69 (83) 96 Room Air I&O- Last 24 Hours up to 6 AM 04/20/20 06:00 Intake Total 2210 ml Output Total 5 ml Balance 2205 ml Laboratory Data 24H LABS Laboratory Tests 2 04/20/20 05:31: Immature Granulocyte % (Auto) 0.6, Neutrophils (%) (Auto) 87.0H, Lymphocytes (%) (Auto) 9.3L, Monocytes (%) (Auto) 3.0, Eosinophils (%) (Auto) 0.0, Basophils (%) (Auto) 0.1, Neutrophils # (Auto) 10.7H, Lymphocytes # (Auto) 1.1L, Monocytes # (Auto) 0.4, Eosinophils # (Auto) 0.0, Basophils # (Auto) 0.0, Nucleated Red Blood Cells % (auto) 0.0, Anion Gap 7L, Glomerular Filtration Rate > 60.0, Calcium Level 9.1 CBC/BMP Laboratory Tests 04/20/20 05:31 Microbiology Microbiology 04/19/20 Gram Stain - Final, Resulted 04/19/20 Wound Culture, Resulted Pending 04/19/20 Anaerobic Culture, Resulted Pending ADELAIDA HIGUERA DO Apr 20, 2020 14:07
--- NOTE | 2020-04-20 17:55 | DS.PDOC ---
Discharge Summary General Date of Admission Apr 19, 2020 at 15:29 Date of Discharge 04/20/20 Discharge Summary PROCEDURES PERFORMED DURING STAY: [None]. ADMITTING DIAGNOSES: B/l breast abscess s/p R. breast drainage DISCHARGE DIAGNOSES: B/l breast abscess s/p R. breast drainage COMPLICATIONS/CHIEF COMPLAINT: Right Breast Abscess. HISTORY OF PRESENT ILLNESS:Patient is 34 year old female with PMH psoriasis is being admitted post R. breast abscess drainage with plastic surgery. Patient reported b/l breast pain for about 2 weeks and had her L. breast drained/treated with Bactrim last through her PCP. Culture reportedly +MRSA but did not improve with Bactrim. She saw Dr. Jordan today and underwent drainage of her R. breast. Hospitalist is ask to keep patient overnight and manage her antibiotics. HOSPITAL COURSE: During hospital stay of the patient received treatment with vancomycin IV DISCHARGE MEDICATIONS: Please see below. ALLERGIES: Please see below. PHYSICAL EXAMINATION ON DISCHARGE: VITAL SIGNS: Please see below. General: Alert, mild discomfort from surgical pain Eyes: Normal sclera, EOMI HENT: Atraumatic Cardiovascular: Normal rate, normal rhythm. Pulmonary: Clear to auscultation b/l, no wheezing GI: Soft, nontender, nondistended Skin: Warm and dry. Small suture site inferior to R. breast, no active discharge nor surrounding erythema. Site covered with dressing c/d/i. Neuro: CN grossly intact. No focal deficits. Strengths equal b/l. Psych: oriented x 3 LABORATORY DATA: Please see below. PROGNOSIS: Fair ACTIVITY: [As tolerated]. DIET: Regular DISPOSITION: 01 Home, Self-Care. DISCHARGE INSTRUCTIONS: Follow surgical instruction ITEMS TO FOLLOWUP ON ON OUTPATIENT: Follow-up with PCP and surgical team DISCHARGE CONDITION: [Stable]. TIME SPENT ON DISCHARGE: Greater than 20minutes. Vital Signs/I&Os Vital Signs Date Time Temp Pulse Resp B/P (MAP) Pulse Ox O2 Delivery O2 Flow Rate FiO2 04/20/20 06:00 97.9 75 17 110/69 (83) 96 Room Air I&O- Last 24 Hours up to 6 AM 04/20/20 06:00 Intake Total 2210 ml Output Total 5 ml Balance 2205 ml Laboratory Data Labs 24H Laboratory Tests 2 04/20/20 05:31: Immature Granulocyte % (Auto) 0.6, Neutrophils (%) (Auto) 87.0H, Lymphocytes (%) (Auto) 9.3L, Monocytes (%) (Auto) 3.0, Eosinophils (%) (Auto) 0.0, Basophils (%) (Auto) 0.1, Neutrophils # (Auto) 10.7H, Lymphocytes # (Auto) 1.1L, Monocytes # (Auto) 0.4, Eosinophils # (Auto) 0.0, Basophils # (Auto) 0.0, Nucleated Red Blood Cells % (auto) 0.0, Anion Gap 7L, Glomerular Filtration Rate > 60.0, Calcium Level 9.1 CBC/BMP Laboratory Tests 04/20/20 05:31 Microbiology Microbiology 04/19/20 Gram Stain - Final, Resulted 04/19/20 Wound Culture, Resulted Pending 04/19/20 Anaerobic Culture, Resulted Pending Discharge Medications Scheduled Doxycycline Monohydrate (Doxycycline) 100 Mg Capsule, 100 MG PO BID No.137/Iron/Folic Acd ( Vitamin Tablet) 1 Each Tablet, 1 TAB PO DAILY, (Reported) Scheduled PRN Hydrocodone/Acetaminophen (Hydrocodone-Acetamin 5-325 mg) 1 Each Tablet, 1 TAB PO Q6H PRN for PAIN Miscellaneous Medications Buspirone HCl (Buspirone HCl) 5 Mg Tablet, (Reported) Montelukast Sodium (Montelukast Sodium) 10 Mg Tablet, (Reported) Pantoprazole Sodium (Pantoprazole Sodium) 40 Mg Tablet., (Reported) Secukinumab (Cosentyx Pen (2 Pens)) 150 Mg/1 Ml Pen.injctr, (Reported) Allergies Coded Allergies: aspirin (Verified Allergy, Unknown, 04/19/20) ELOINA STRICKLAND DO Apr 20, 2020 17:54
--- NOTE | 2020-04-21 20:30 | ROOPDOC ---
[facility] Report Of Operation Report of Operation DATE OF PROCEDURE: 04/19/20 PREPROCEDURE DIAGNOSES: Right breast abscess POSTPROCEDURE DIAGNOSES: Right breast abscess PROCEDURE: Incision and drainage of right breast abscess with intraop sonographic examination SURGEON: Adelaida Higuera ANESTHESIA: general ESTIMATED BLOOD LOSS: Approximately 5 mL. COMPLICATIONS: none REMARKS: moderate amount of purulent drainage, cultures x2 collected, abscess wall specimen collected DESCRIPTION OF PROCEDURE: INDICATIONS: Ms. Calero is a 34 -year-old woman who presented to the clinic on 04/19/19 with right breast deep abscess. She was offered surgical drainage of the abscess due to severe pain in the right breast and inability to tolerate in office drainage of the abscess. Risks and possible complications of surgical procedure including bleeding, infection and injury to surrounding structures were explained to the patient and she wished to proceed. Consent was signed. My initials were placed on the operative site. Subcutaneous injection of 5000 units of heparin was done in Preop. DETAILS: Patient was taken to the operating room and placed on the operating room table. A sign in was called stating patients name, date of and the procedure to be done. Preoperative antibiotics were infused. Smooth induction of general anesthesia was done. Patients hands were extended on arm rests. Care was taken not to over extend the arms. Sequential compression devices were placed and assured to function correctly. After induction of anesthesia, intraop sonographic examination was done and deep pocket of fluid was identified in the central breast with some extension toward the nipple. Patients right breast and axilla were prepped and draped in the usual fashion. Appropriate time out was done again prior second part of the procedure. Patients name, date of , and the procedure to be done were confirmed. Next, local anesthetic using 1% lidocaine and 0.25 % Marcaine 50/50 mix was injected at the site of planned lower periareolar incision which was at the site of breast fullness and toward the previously identified fluid pocket. The incision was made with the scalpel. Dissection was carrier down toward the chest wall until abscess cavity was reached. Moderate amount of purulent drainage was noted. Two sets of wound cultures were collected and sent to the lab. Abscess cavity was evacuated and irrigated with copious amount of fluid. A part of abscess was cut out and sent to pathology as a specimen. At this point a 0.25 inch Lorna drain was placed deep into abscess cavity and secured in place with 3-0 Nylon stitch at the incision site. Additional local anesthetic was injected into surrounding tissues. Incision was left open to allow drainage. Patient emerged from the anesthesia without any problems. Kerlix and ABD pads were placed over the incision and held in place with surgical bra. Sponge and instrument counts were done and were correct. Patient tolerated procedure well and was taken to recovery unit in stable condition. ADELAIDA HIGUERA DO Apr 21, 2020 20:30
== END 2020-04-20 14:10 | disposition home or self-care (01) ==
LOC: M SDC 15:28 → M MSPAV 15:29
PROVIDERS: ADMIT Student in an Organized Health Care Education/Training Program; ATTEND Internal Medicine
DX: N61.1 Abscess of the breast and nipple (principal); K21.9 Gastro-esophageal reflux disease without esophagitis; L40.9 Psoriasis, unspecified; Z79.899 Other long term (current) drug therapy; J45.909 Unspecified asthma, uncomplicated; F41.9 Anxiety disorder, unspecified; Z88.8 Allergy status to other drugs, medicaments and biological substances
CPT/HCPCS: 19020; 36415; 80048; 81025; 85025; 86850; 86900; 86901; 87070; 87075; 87077; 87186; 87205; 88304; 96365; 96366; J1100; J1644; J1885; J2250; J2405; J3010; J3370; U0002

== ENCOUNTER 2020-05-25 20:59 | Day surgery (SDC) | payer OTHER ==
[~2020-05-25] VITALS: Ht 167.6 cm; Wt 75.9 kg
[~2020-05-25 20:59] MED LIST changes: -CLINDAMYCIN 900 MG in IV 1 EA IV ONE; +DOXY-350 PO; -HEPARIN SOD (PORCINE) 5000UNITS/ML 1ML VIAL/SYRINGE SQ ONE; -LIDOCAINE 1% MDV 20ML VIAL SQ PRN; -NS 1,000 ML IV SCH; -VANCOMYCIN HCL 1,000 MG, VIAL MATE ADAPTER 1 EACH in D5W 250 ML IV SCH
[2020-05-25] MEDS ORDERED: GLUCAGON INJ 1MG VIAL IV STA (21:34)
[2020-05-25] MEDS ORDERED: ONDANSETRON 4MG/2ML VIAL IV ONE (21:35)
[2020-05-25 22:06] LABS: BASO # 0.1 10^3/uL (0.0-0.2); BASO % 0.7 % (0.0-1.0); EOS # 0.6 10^3/uL (0.0-0.5); EOS % 6.5 % (0.0-3.0); HEMATOCRIT 44.6 % (36.0-47.0); HEMOGLOBIN 14.3 g/dl (12.0-15.5); LYMPH % 33.4 % (24.0-44.0); MEAN CORPUSCULAR HEMOGLOBIN 28.8 pg (27.0-33.0); MEAN CORPUSCULAR HGB CONC 32.1 g/dl (32.0-36.5); MEAN CORPUSCULAR VOLUME 89.7 fl (80.0-96.0); MONO # 0.7 10^3/uL (0.0-0.8); MONO % 7.8 % (2.0-8.0); NEUTROPHILS # 4.6 10^3/uL (1.5-8.5); NEUTROPHILS % 51.3 % (36.0-66.0); PLATELET COUNT, AUTOMATED 358 10^3/uL (150-450); RED BLOOD COUNT 4.97 10^6/uL (4.00-5.40); WHITE BLOOD COUNT 8.9 10^3/uL (4.0-10.0)
[2020-05-25 23:03] LABS: BLOOD UREA NITROGEN 13 MG/DL (7-18); CALCIUM LEVEL 9.3 MG/DL (8.5-10.1); CARBON DIOXIDE LEVEL 27 MEQ/L (21-32); CHLORIDE LEVEL 110 MEQ/L (98-107); CREATININE FOR GFR 0.83 MG/DL (0.55-1.30); GLOMERULAR FILTRATION RATE > 60.0 (>60); GLUCOSE, FASTING 97 MG/DL (70-100); POTASSIUM SERUM 4.2 MEQ/L (3.5-5.1); SODIUM LEVEL 142 MEQ/L (136-145)
[2020-05-25] MEDS ORDERED: NS 1,000 ML IV SCH ×2 (23:12→23:15)
[2020-05-25] MEDS ORDERED: COSE1INJ SC (23:23)
[2020-05-26 00:03] LABS: RSV AMPLIFICATION NEGATIVE (NEGATIVE)
[2020-05-26] MEDS ORDERED: propofoL 200 MG/20 ML VIAL As Ordered ONE (00:47)
[2020-05-26] MEDS ORDERED: MIDAZOLAM INJ 2MG/2ML VIAL (J2250 PER 1MG) As Ordered ONE (00:47)
[2020-05-26] MEDS ORDERED: dexameTHASONE 4 MG/ML 1ML VIAL (J1100 PER 1MG) As Ordered ONE (00:57)
[2020-05-26] MEDS ORDERED: fentaNYL 100 MCG/2 ML INJECTION (J3010) As Ordered ONE (00:57)
[2020-05-26] MEDS ORDERED: ONDANSETRON 4MG/2ML VIAL As Ordered ONE (00:57)
[2020-05-26] MEDS ORDERED: LR 1,000 ML IV SCH (01:15)
[2020-05-26] MEDS ORDERED: ONDANSETRON 4MG/2ML VIAL IV PRN (01:15)
[2020-05-26] MEDS ORDERED: fentaNYL 100 MCG/2 ML INJECTION (J3010) IV PRN (01:15)
[2020-05-26] MEDS ORDERED: METOCLOPRAMIDE INJ 10MG/2ML VIAL (J2765 PER 1) IV PRN (01:15)
[2020-05-26 01:30] VITALS: BP 117/81
--- NOTE | 2020-05-26 09:22 | ROOR ---
Patient Name: Staci Calero Procedure Date: 05/25/2020 11:54 PM Date of : 1985 Age: 34 Room: Main OR Gender: Female Note Status: Certified Nuclear Medicine Technologist Override Procedure: Upper GI endoscopy Indications: Dysphagia, Foreign body in the esophagus Providers: Manpreet Bustos MD Referring MD: Benny Mccloud MD Requesting Provider: Medicines: Monitored Anesthesia Care Complications: No immediate complications. Procedure: Pre-Anesthesia Assessment: - Prior to the procedure, a History and Physical was performed, and patient medications and allergies were reviewed. The patient is competent. The risks and benefits of the procedure and the sedation options and risks were discussed with the patient. All questions were answered and informed consent was obtained. Patient identification and proposed procedure were verified by the physician, the nurse and the anesthesiologist in the procedure room. Mental Status Examination: alert and oriented. Airway Examination: normal oropharyngeal airway and neck mobility. Respiratory Examination: clear to auscultation. CV Examination: normal. Prophylactic Antibiotics: The patient does not require prophylactic antibiotics. Prior Anticoagulants: The patient has taken no previous anticoagulant or antiplatelet agents. ASA Grade Assessment: II - A patient with mild systemic disease. After reviewing the risks and benefits, the patient was deemed in satisfactory condition to undergo the procedure. The anesthesia plan was to use monitored anesthesia care (MAC). Immediately prior to administration of medications, the patient was re-assessed for adequacy to receive sedatives. The heart rate, respiratory rate, oxygen saturations, blood pressure, adequacy of pulmonary ventilation, and response to care were monitored throughout the procedure. The physical status of the patient was re-assessed after the procedure. The Endoscope was introduced through the mouth, and advanced to the second part of duodenum. The upper GI endoscopy was accomplished without difficulty. The patient tolerated the procedure well. Findings: Mucosal changes including longitudinal furrows, white plaques and crepe paper esophagus were found in the middle third of the esophagus and in the lower third of the esophagus. Biopsies were taken with a cold forceps for histology. Verification of patient identification for the specimen was done by the physician and nurse using the patient's name, date and medical record number. Estimated blood loss was minimal. Food was found in the distal esophagus. Removal was accomplished with a rat-toothed forceps and Manrique net. A large amount of food (residue) was found in the gastric fundus. The duodenal bulb and second portion of the duodenum were normal. Impression: - Esophageal mucosal changes suggestive of eosinophilic esophagitis. Biopsied. - Food was found in the esophagus. Removal was successful. - A large amount of food (residue) in the stomach. - Normal duodenal bulb and second portion of the duodenum. Recommendation: - Patient has a contact number available for emergencies. The signs and symptoms of potential delayed complications were discussed with the patient. Return to normal activities tomorrow. Written discharge instructions were provided to the patient. - Clear liquid diet for 1 day, then advance as tolerated to soft diet. - Avoid the food allergens. Follow Six Food Elimination Diet ( Avoid -- milk, soy, eggs, wheat, peanuts/tree nuts, and seafood), until allergy testing is done. - Use Prilosec (omeprazole) 20 mg PO twice daily - to be taken [facility] 1/2 hour before breakfast(on empty stomach) and again at bedtime ( atleast 3 hours after last meal) for 3 months. - Await pathology results. - Telephone GI clinic for pathology results in 2 weeks. - Return to GI clinic in [facility] (address [address], [address], [facility] [address]) in 4 -- 6 weeks. Please call GI clinic @ [phone] for apppointment date and time. - Return to primary care physician. Procedure Code(s): --- Professional --- 82984, Esophagogastroduodenoscopy, flexible, transoral; with removal of foreign body(s) 14056, Esophagogastroduodenoscopy, flexible, transoral; with biopsy, single or multiple Diagnosis Code(s): --- Professional --- K22.8, Other specified diseases of esophagus T18.128A, Food in esophagus causing other injury, initial encounter T18.2XXA, Foreign body in stomach, initial encounter R13.10, Dysphagia, unspecified T18.108A, Unspecified foreign body in esophagus causing other injury, initial encounter CPT copyright 2019 [employer]. All rights reserved. The codes documented in this report are preliminary and upon animal caregiver review may be revised to meet current compliance requirements. Attending Participation: I personally performed the entire procedure. Manpreet Bustos MD Manpreet Bustos MD 05/26/2020 1:12:28 AM Electronically signed by Manpreet Bustos MD Number of Addenda: 0 Note Initiated On: 05/25/2020 11:54 PM Estimated Blood Loss: Estimated blood loss: none.
== END 2020-05-26 01:50 | disposition home or self-care (01) ==
LOC: M ED 20:59 → M SDC 23:16
PROVIDERS: ATTEND Internal Medicine Gastroenterology
DX: T18.128A Food in esophagus causing other injury, initial encounter (principal); R13.10 Dysphagia, unspecified; Z88.8 Allergy status to other drugs, medicaments and biological substances; Y92.89 Other specified places as the place of occurrence of the external cause
CPT/HCPCS: 43239; 43247; 80047; 80048; 85025; 87631; 88305; 96374; 96375; 99284; J1100; J1610; J2250; J2405; J3010

== ENCOUNTER 2020-06-28 21:37 | Emergency (ER) | payer OTHER ==
[~2020-06-28] VITALS: Ht 167.6 cm; Wt 75.9 kg
[~2020-06-28 21:37] MED LIST changes: +COSE1INJ SC
[2020-06-28 21:38] VITALS: BP 132/75
[2020-06-28] MEDS ORDERED: PANT40TA29 PO (22:00)
[2020-06-28] MEDS ORDERED: SULF1TAB93 PO (22:00)
[2020-06-28] MEDS ORDERED: LIDOCAINE 1% MDV 20ML VIAL SC ONE (22:20)
[2020-06-28] MEDS ORDERED: CEPHALEXIN 500 MG CAP PO ONE (22:40)
[2020-06-28] MEDS ORDERED: CEPH500C PO (22:51)
== END 2020-06-28 23:04 | disposition home or self-care (01) ==
LOC: M ED 21:37
DX: L02.415 Cutaneous abscess of right lower limb (principal); J45.909 Unspecified asthma, uncomplicated; F33.9 Major depressive disorder, recurrent, unspecified; F41.9 Anxiety disorder, unspecified; F43.10 Post-traumatic stress disorder, unspecified; Z79.899 Other long term (current) drug therapy; Z88.8 Allergy status to other drugs, medicaments and biological substances

== ENCOUNTER → 2020-07-06 | Outpatient (CLI) | payer OTHER ==
[~2020-07-06] MED LIST changes: +CEPH500C PO; +PANT40TA29 PO; +SULF1TAB93 PO
--- NOTE | 2020-07-06 16:18 | REPMRS ---
Patient History Family history of unknown cancer at age 46 in mother. Took hormonal contraceptives for 14 years 6 months. Right breast Abcess drainage surgery April 19, 2020 Diagnostic Bilateral Mammo: July 06, 2020 - Exam #: [id number] Bilateral CC and MLO view(s) were taken. Technologist: Robyn Smith, RT No prior studies available for comparison. FINDINGS: The breast tissue is almost entirely fat. The Volpara volumetric breast density category is: A. There is no evidence of dominant mass, architectural distortion, or grouped microcalcification typical of malignancy. 3-D tomosynthesis shows no additional findings. Assessment: BI-RADS/ACR category 1 mammogram. Negative Mammogram. Recommendation Routine screening mammogram of both breasts in 1 year (for women over age 40). This patient's [facility] Lifetime Breast Cancer Risk is estimated at 11.8 %. This mammogram was interpreted with the aid of an FDA-approved computer-aided dectection system. Electronically Signed By: Martínez Echeverria MD 07/06/20 1585
--- NOTE | 2020-07-06 16:31 | REP ---
INDICATION: F/U CAT 3 MAMMO FROM [facility]. COMPARISON: Comparison bilateral sonography [facility] 12 April 2020.. Comparison sonography was performed because of a history of preliminary a draining from the left nipple at a nipple piercing site. TECHNIQUE: Bilateral whole breast sonography. FINDINGS: In the right breast there are mildly heterogeneous fibroglandular elements. No cyst, mass, acoustic shadowing or architectural distortion is seen. No significant abnormality is noted in the right breast on ultrasound. In the left breast there is mildly high heterogeneous fibroglandular background echotexture pattern. No cyst is seen. In the retroareolar region of the left breast, today's sonography demonstrates a hypoechoic retro areolar region measuring 0.8 x 0.4 x 0.9 cm in diameter. This is felt to be unchanged from the 12 April 2020 study. It is immediately beneath the dermis. No other sonographic finding on the left. IMPRESSION: BI-RADS category 1 findings and on the right. BI-RADS category 3 probably benign findings on the left. Stable 0.8 x 0.9 x 0.4 cm nodule just beneath the dermis in the subareolar region of the left breast. This is felt to correspond to a 1.1 cm nodule projecting in the infero medial retroareolar region on today's mammography. Sebaceous cyst versus inflammatory changes related to the recent piercing. Recommend follow-up sonography and left breast mammography in 6 months <Electronically signed by Martínez Echeverria > 07/06/20 1370
== END ==
LOC: M WHC 13:38
PROVIDERS: ATTEND Surgery
DX: Z12.31 Encounter for screening mammogram for malignant neoplasm of breast (principal)

== ENCOUNTER 2021-01-13 12:00 | Emergency (ER) | payer OTHER ==
[~2021-01-13] VITALS: Ht 167.6 cm; Wt 74.5 kg
[~2021-01-13 12:00] MED LIST changes: +BACTDSTA PO; +OMEP40CA4 PO; -OMEP40CA97 PO; -SULF1TAB93 PO
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
--- OUTSIDE RECORDS SUMMARY | 2021-01-13 12:06 | CCD | Continuity of Care Document ---
Author Author [facility] Organization Unknown Address [address], [address] [place] [address] Phone [phone] Care Team Providers Care Approver Name Role Phone No PCP (Not For Referring DR) Annelise Santana DO AUTM [phone] Problems Description No Information Available Social History Type Date Description Comments Sex Unknown ETOH Use Social Drinker Tobacco Use Start: Unknown Patient has never smoked Sun Exposure moderate amount of sun exposure Sun Exposure Tanning bed - Has used in past. No longer using. Sun Exposure Has never experienced blistering from sunburns Sun Exposure Use < 15 SPF Allergies, Adverse Reactions, Alerts Description No Known Drug Allergies Medications Active Medications SIG Qnty Indications Ordering Provide r Date Bactrim DS 800-160mg Tablets take 1 by mouth bid. 28tabs Julianna Ellis, F.N.P. 2020 Tretinoin 0.025% Cream apply topically to face at hour of sleep daily 45gm Julianna Ellis, F .N.P. 04/29/2020 Cosentyx Sensoready Pen 150mg/ml Solution Auto-Inject inject two auto-inject pens under the skin every 4 weeks 2units MATILDE Stroud 11/02/2019 Clobetasol Propionate 0.05% Cream apply to affected area sparingly twice a day x 2 weeks 30gm R21 Ph yl MATILDE Briggs 08/16/2019 Zoloft 25mg Tablets 1tabs MATILDE Stroud 07/20/2019 Cosentyx Sensoready (300 MG) 150mg/ml Solution Auto-Inject inject 300 mg (2 pens) every 4 weeks (maintenance) 2ml Phyl ALE Briggs-JADEN 07/20/2019 Unknown Protonix Unknown Singulair Unknown Immunizations Description No Information Available Vital Signs Date Vital Result Comment 10/09/2020 11:47am BP Systolic 122 mmHg BP Diastolic 72 mmHg Respiratory Rate 18 /min 08/23/2019 5:02pm BP Systolic 130 mmHg BP Diastolic 70 mmHg Results Test Acquired Date Facility Test Result H/L Range Note CBC With Differential/Platelet 10/09/2020 [facility] WBC 8.7 x10E3/uL 3.4-10.8 RBC 4.89 x10E6/uL 3.77-5.28 Hemoglobin 14.3 g/dL 11.1-15.9 Hematocrit 43.6 % 34.0-46.6 MCV 89 fL 79-97 MCH 29.2 pg 26.6-33.0 MCHC 32.8 g/dL 31.5-35.7 RDW 12.8 % 11.7-15.4 Platelets 416 x10E3/uL 150-450 Neutrophils 59 % Not Estab. Lymphs 28 % Not Estab. Monocytes 8 % Not Estab. Eos 4 % Not Estab. Basos 1 % Not Estab. Immature Cells TNP Neutrophils (Absolute) 5.2 x10E3/uL 1.4-7.0 Lymphs (Absolute) 2.4 x10E3/uL 0.7-3.1 Monocytes(Absolute) 0.7 x10E3/uL 0.1-0.9 Eos (Absolute) 0.3 x10E3/uL 0.0-0.4 Baso (Absolute) 0.1 x10E3/uL 0.0-0.2 Immature Granulocytes 0 % Not Estab. Immature Grans (Abs) 0.0 x10E3/uL 0.0-0.1 NRBC TNP Hematology Comments: TNP HAV/HBV Immune Status (Pro IV) 10/09/2020 [facility] Hep A Ab, IgM Negative Negative Hep A Ab, Total Positive Abnormal Negative Hep B Core Ab, Tot Negative Negative Hep B Surface Ab, Qual Non Reactive 1 Hepatic Function Panel (7) 10/09/2020 [facility] Protein, Total 7.4 g/dL 6.0-8.5 Bilirubin, Total 0.2 mg/dL 0.0-1.2 Bilirubin, Direct 0.08 mg/dL 0.00-0.40 Alkaline Phosphatase 82 IU/L 48-121 Ast (Sgot) 34 IU/L 0-40 Alt (SGPT) 57 IU/L High 0-32 Quantiferon-TB Gold Plus (Client Incub) 10/09/2020 [facility] QuantiFERON Criteria See Comment: 2 QuantiFERON TB1 Ag Value 0.00 IU/mL QuantiFERON TB2 Ag Value 0.00 IU/mL QuantiFERON Nil Value 0.00 IU/mL QuantiFERON Mitogen Value >10.00 IU/mL QuantiFERON-TB Gold Plus Negative Negative 3 HIV Antigen/Antibody Combo W/RFX Confirm 10/09/2020 [facility] HIV Screen 4th Generation wRfx Non Reactive Non React emily Renal Panel (10) 10/09/2020 [facility] Glucose 124 mg/dL High 65-99 BUN 10 mg/dL 6-20 Creatinine 0.63 mg/dL 0.57-1.00 eGFR If NonAfricn Am 118 mL/min/1.73 >59 eGFR If Africn Am 136 mL/min/1.73 >59 4 BUN/Creatinine Ratio 16 9-23 Sodium 139 mmol/L 134-144 Potassium 4.2 mmol/L 3.5-5.2 Chloride 105 mmol/L 96-106 Carbon Dioxide, Total 23 mmol/L 20-29 Calcium 9.6 mg/dL 8.7-10.2 Phosphorus 3.3 mg/dL 3.0-4.3 Albumin 4.9 g/dL High 3.8-4.8 Laboratory test finding 10/09/2020 [facility] PDF [id number] SEE IMAGE Aerobic Bacterial Culture 09/21/2020 [facility] Aerobic Bacterial Culture Final report Abnormal 5 Result 1 Klebsiella aerog <SEE NOTE> Abnormal 6 Result 2 Diphtheroids 7 Antimicrobial Susceptibility See Comment: 8 Laboratory test finding 09/21/2020 [facility] PDF [id number] SEE IMAGE Laboratory test finding 09/20/2020 [facility] Aerobic Bacterial Culture <pending> 1 Non Reactive: Inconsistent w ith immunity, less than 10 mIU/mL Reactive: Consistent with immunity, greater than 9.9 mIU/mL 2 The QuantiFERON-TB Gold Plus result is determined by subtracting the Nil value from either TB antigen (Ag) tube. The mitogen tube serves as a control for the test. 3 The specimen received for Qu antiFERON testing was incubated by the ordering institution. Specific procedures outlined in our Directory of Services and in the package insert for the QuantiFERON Gold (In Tube) test must be followed to enabl e for proper stimulation of cells for the production of interferon gamma. Chemiluminescence immunoassay methodology 4 [facility] currently reports eGFR in compliance with the current recommendations of the National Kidney Foundation. [facility] will update reporting as new guidelines are published from the NKF-ASN Task force. 5 Will treat for 14 days with Bactrim DS 6 Klebsiella aerogenes Heavy growth 7 Heavy growth Susceptibility not normally performed on this organism. 8 S = Susceptible; I = Inte rmediate; R = Resistant P = Positive; N = Negative MICS are expressed in micrograms per mL Antibiotic RSLT#1 RSLT#2 RSLT#3 RSLT#4 Amoxicillin/Clavulanic Acid R Cefazolin R Cefepime S Ceftriaxone S Cefuroxime R Ciprofloxacin S Ertapenem S Gentamicin S Imipenem S Levofloxacin S Meropenem S Tetracycline S Tobramycin S Trimethoprim/Sulfa S Procedures Date Code Description Status 10/09/2020 87690 Office/Outpatient Established Mo d MDM 30-39 Min Completed Medical Devices Description No Information Available Encounters Type Date Location Provider Dx Diagnosis Office Visit 10/09/2020 11:30a Main Office MATILDE Stroud D22. 5 Melanocytic nevi of trunk D22.71 Melanocytic nevi of right lo wer limb, including hip D22.72 Melanocytic nevi of left low er limb, including hip D22.62 Melanocytic nevi of left upp er limb, including shoulder D22.61 Melanocytic nevi of right up per limb, including shoulder L81.4 Other melanin hyperpigmentat ion L40.0 Psoriasis vulgaris Z51.[address] eason level monitoring Z79.899 Other jail (current) dr eason therapy Z12.83 Encounter for screening for malignant neoplasm of skin Assessments Date Code Description Provider 11/07/2020 L98.8 Other specified disorders of the skin and subcutaneous tissue Nichol 10/09/2020 D22.5 Melanocytic nevi of trunk MATILDE Waddell 10/09/2020 D22.71 Melanocytic nevi of right lower limb, including hip [facility]/09/2020 D22.72 Melanocytic nevi of left lower l imb, including hip ANNA MARIE StroudJADEN 10/09/2020 D22.62 Melanocytic nevi of left upper l imb, including shoulder ALE StroudJADEN 10/09/2020 D22.61 Melanocytic nevi of right upper limb, including shoulder ANNA MARIE StroudJADEN 10/09/2020 L81.4 Other melanin hyperpigmentation Radha Briggs [facility] 10/09/2020 L40.0 Psoriasis vulgaris Radha Briggs [facility] 10/09/2020 Z51.81 Encounter for therapeutic drug l evel monitoring Radha Briggs, [facility] 10/09/2020 Z79.899 Other technician terminal and repeater (current) drug t herapy Radha Briggs [facility] 10/09/2020 Z12.83 Encounter for screening for veena gnant neoplasm of skin Radha Briggs [facility] 09/25/2020 L98.8 Other specified disorders of the skin and subcutaneous tissue Chris Gutierrez 09/25/2020 L98.8 Other specified disorders of the skin and subcutaneous tissue Cosmetic Consultation Plan of Treatment Future Appointment(s):* 10/10/2021 8:00 am - TANA Nava at Main Office * 04/12/2021 8:00 am - TANA Nava at Main Office 10/09/2020 - Radha Ibrahimeryn [facility]* D22.5 Melanocytic nevi of trunk* Comments:* Nevi on trunk appear healthy. Monitor for changes. Sun protection and sunscreen use discussed. Discussed if any moles change in shape or color, itch, bleed or burn to contact the office for evaluation sooner than their interval appointment. * D22.71 Melanocytic nevi of right lower limb, including hip* Comments:* Nevi located on R leg appear healthy. Monitor for changes. * D22.72 Melanocytic nevi of left lower limb, including hip* Comments:* Nevi L leg appear healthy. Monitor for changes. * D22.62 Melanocytic nevi of left upper limb, including shoulder* Comments:* Nevi located on L arm appears healthy. Monitor for changes. * D22.61 Melanocytic nevi of right upper limb, including shoulder* Comments:* Nevi located on R arm appears healthy. Monitor for changes. * L81.4 Other melanin hyperpigmentation* Comments:* Solar lentigines - ReassuranceDiscussed that solar lentignes appear from the sun that was received years agoSunscreen use and sun protection discussed. * L40.0 Psoriasis vulgaris* Comments:* Stable. Continue Cosentyx Sensoready (300 mg dose) 150 mg 2 pens every 4 weeks. Continue Clobetasol 0.05% cream PRN for flares. Knows topical steroid safety. Knows not to over use. Labs drawn today for CBC w/ Diff, Liver Panel, Renal Panel, Hepatitis A,B,C Panel, HIV, and TB Gold. Staci tolerated procedure well. Chest x-ray not required due to Staci never having smoked. Call with problems. * Z51.81 Encounter for therapeutic drug level monitoring* Comments:* See above. * Z79.899 Other technician terminal and repeater (current) drug therapy* Comments:* See above. * Z12.83 Encounter for screening for malignant neoplasm of skin* Comments:* See above. * Follow up:* Yearly/PRN - FSC w/ET 6 month - psoriasis fu w/ ET Functional Status Description No Information Available Mental Status Description No Information Available Referrals Description No Information Available
--- OUTSIDE RECORDS SUMMARY | 2021-01-13 12:07 | CCD | Continuity of Care Document ---
Author Author Staci DAWKINS PA Organization Unknown [place] [address] Phone [phone] Care Team Providers Care Funeral Director And Embalmer Name Role Phone Annelise Thomas D.O. AUTM Camron Ndiaye M.D. AUTM [phone] Manfred Barrera M.D. AUTM [phone] Austyn Byrne LCSW AUTM [phone] Steph Jordan DO AUTM Usha Martinez DO AUTM [phone] Problems Active Problems Provider Date Mild recurrent [...] smoked Recreational Drug Use Denies Drug Use Exercise Type/Frequency Does not exercise Sun Exposure Does not use sunscreen Seat Belt/Car Seat Never uses seat belt Allergies, Adverse Reactions, Alerts Description No Known Drug Allergies Medications Active Medications SIG Qnty Indications Ordering Provide r Date Ibuprofen 800mg Tablets one tablet by mouth every 6 hours 360tabs Isidro TinajeroO. 0 04/21/[address] 1 by mouth every day on an empty stomach. 90tabs K21.00 Raul Tinajero .OMesfin 12/30/2019 Proair HFA 108(90Base) mcg/Act Aer osol 2 puffs inhaled every 4 hours as needed 8.500gm Isidro DoyleO. Cosentyx 300 Dose 15 0mg/ml Soln Prefill Syringe Unknown History Medications Bactrim DS 800-160mg Tablets take one tablet by mouth every 12 hours for seven days 20tabs L02.415 Isidro BarakatOMesfin 06/26/2020 - 10/31/2020 Immunizations CPT Code Status Date Vaccine Lot # [id number] Given 01/31/2020 Influenza Virus Vaccine, Quadrivalent, Split, Preservative Free [id number] Vital Signs Date Vital Result Comment 10/31/2020 1:09pm BP Systolic 128 mmHg BP Diastolic 72 mmHg Height 66 inches 5'6" Weight 166.38 lb BMI (Body Mass Index) 26.9 kg/m2 Heart Rate 97 /min Respiratory Rate 14 /min Body Temperature 98.5 F O2 % BldC Oximetry 99 % [place] Body Weight 130 lb 06/30/2020 1:14pm BP Systolic 130 mmHg BP Diastolic 80 mmHg Height 66 inches 5'6" Weight 168.00 lb BMI (Body Mass Index) 27.1 kg/m2 Heart Rate 87 /min Respiratory Rate 20 /min Body Temperature 99.9 F O2 % BldC Oximetry 98 % [place] Body Weight 130 lb Results Test Acquired Date Facility Test Result H/L Range Note Culture Wound And Gram Stain 06/28/2020 [facility] Outpati ent Testing (Registration) [address] [place], [place] [id number] [phone] Gram Stain (SEE NOTE) Normal 1 Wound Culture FULL REPORT IN L <SEE NOTE> Normal 2 Sars Flu A+B 05/25/2020 [facility] Outpatient Testi ng (Registration) [address] [place] [address] [phone] Influenza A Amplification NEGATIVE Normal Negati ve 3 Influenza B Amplification NEGATIVE Normal Negative 4 RSV Amplification NEGATIVE Normal Negative 5 Sars Covid-19 Amplification NEGATIVE Normal Negative 6 Istat Chem8+ Panel 05/25/2020 [facility] Outpatient Testi ng (Registration) [address] [place] [address] [phone] iSTAT HCT 45.0 % Normal 38.0-51.0 iSTAT Glucose 98 mg/dL Normal 70-105 iSTAT Sodium 143 mEq/L Normal 136-145 iSTAT Potassium 4.1 mEq/L Normal 3.5-5.1 iSTAT CA++ 5.0 mg/dL Normal 4.5-5.3 iSTAT Chloride 106 mEq/L Normal 98-109 iSTAT Co2 27.0 MM/L Normal 23.0-27.0 iSTAT BUN 13 mg/dL Normal 8-26 iSTAT Creatinine 0.7 mg/dL Normal 0.6-1.3 CBC With Differential 05/25/2020 [facility] Outpatient Anne ting (Registration) [address] [place] [address] [phone] White Blood Count 8.9 10 Normal 4.0-10.0 Red Blood Count 4.97 10 Normal 4.00-5.40 Hemoglobin 14.3 g/dL Normal 12.0-15.5 Hematocrit 44.6 % Normal 36.0-47.0 Mean Corpuscular Volume 89.7 fl Normal 80.0-96.0 Mean Corpuscular Hemoglobin 28.8 pg Normal 27.0-33.0 Mean Corpuscular HGB Conc 32.1 g/dL Normal 32.0-36.5 Red Cell Distribution Width 13.0 % Normal 11.5-14.5 Platelet Count, Automated 358 10 Normal 150-450 Neutrophils % 51.3 % Normal 36.0-66.0 Lymph % 33.4 % Normal 24.0-44.0 [place] % 7.8 % Normal 2.0-8.0 Eos % 6.5 % High 0.0-3.0 Baso % 0.7 % Normal 0.0-1.0 Immature Granulocyte % 0.3 % Normal 0-3.0 Nucleated Red Blood Cell % 0.0 % Normal 0-0 Neutrophils # 4.6 10 Normal 1.5-8.5 Lymph # 3.0 10 Normal 1.5-5.0 [place] # 0.7 10 Normal 0.0-0.8 Eos # 0.6 10 High 0.0-0.5 Baso # 0.1 10 Normal 0.0-0.2 Basic Metabolic Profile 05/25/2020 [facility] Outpatient T alexa (Registration) [address] [place] [address] [phone] Glucose, Fasting 97 mg/dL Normal 70-100 Blood Urea Nitrogen 13 mg/dL Normal 7-18 Creatinine For GFR 0.83 mg/dL Normal 0.55-1.30 Glomerular Filtration Rate > 60.0 Normal >60 7 Sodium Level 142 mEq/L Normal 136-145 Potassium Serum 4.2 mEq/L Normal 3.5-5.1 Chloride Level 110 mEq/L High 98-107 Carbon Dioxide Level 27 mEq/L Normal 21-32 Anion Gap 5 mEq/L Low 8-16 Calcium Level 9.3 mg/dL Normal 8.5-10.1 1 FEW WBCS MODERATE RBCS FEW GRAM POSITIVE COCCI IN CLUSTERS 2 FULL REPORT IN LAB NOTES (eC W and [facility]). ORGANISM 1: STAPH.AUREUS METHICILLIN RESIS QUANTITY OF GROWTH HEAVY ORGANISM 1: STAPH.AUREUS METHICILLIN RESIS STAPH.AUREUS METHICILLIN [...] S CLINDAMYCIN PO 150mg q6h 0.25 S NITROFURANTOIN PO 100mg BID 32 S OXACILLIN IV 500mg q6h >=4 R VANCOMYCIN IV 500mg q8h 1 S LINEZOLID (ZYVOX) IV 600MG Q12HR 2 S LINEZOLID (ZYVOX) PO 600MG Q12HR 2 S An isolate with a (+) POSITIVE ICR test is considered CLINDAMYCIN RESISTANT; however, clindamycin may still be effective in some patients. An isolate with a (-) NEGATIVE ICR test is considered CLIDAMYCIN SENSITIVE. 3 Negative results do not prec lude influenza or RSV virus infection and should not be used as the sole basis for treatment or other patient management decisions. 4 Negative results do not prec lude influenza or RSV virus infection and should not be used as the sole basis for treatment or other patient management decisions. 5 Negative results do not prec lude influenza or RSV virus infection and should not be used as the sole basis for treatment or other patient management decisions. 6 A false negative result may occur if a specimen is improperly collected, transported or handled. False negative results may also occur if inadequate numbers of organisms are present in the specimen. As with any molecular test, mutations within the target regions of Xpert Xpress SARS-CoV-2 could affect primer and/or probe binding resulting in failure to detect the presence of virus. This test cannot rule out diseases caused by other bacterial or viral pathogens. DISCLAIMER: Testing was performed using the [employer] SARS-CoV-2 test. This test was developed and its performance characteristics determined by [employer]. This test has not been FDA cleared or approved. This test has been authorized by FDA under an Emergency Use Authorization (EUA). This test is only authorized for the duration of time the declaration that circumstances exist justifying the authorization of the emergency use of in vitro diagnostic tests for detection of SARS-CoV-2 virus and/or diagnosis of COVID-19 infection under section 564(b)(1) of the Act, 21 U.S.C. 360bbb-3(b)(1), unless the authorization is terminated or revoked sooner. 7 Units are mL/min/1.73 m2 Chronic Kidney Disease Staging per NKF: Stage I & II GFR >=60 Normal to Mildly Decreased Stage III GFR 30-59 Moderately Decreased Stage IV GFR 15-29 Severely Decreased Stage V GFR <15 Very Little GFR Left ESRD GFR <15 on EMPLOYMENT [employer]STRU[employer] Procedures Date Code Description Status 10/31/2020 61993 Office/Outpatient Established [facility] 20-29 Min Completed 06/30/2020 20050 Office/Outpatient Established Lo w MDM 20-29 Min Completed 06/26/2020 96360 Office/Outpatient Established Lo w MDM 20-29 Min Completed 05/25/2020 68931 Office/Outpatient Established Lo w MDM 20-29 Min Completed Medical Devices Description No Information Available Encounters Type Date Location Provider Dx Diagnosis Office Visit 10/31/2020 1:00p [facility] MICHAEL Rubalcava L40.9 Psoriasis, unspecified 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, predom inattentive type F41.1 Generalized anxiety disorder Z71.89 Other specified counseling Office Visit 06/30/2020 1:10p [facility] MICHAEL Rubalcava L02.415 Cutaneous abscess of right l ower limb Office Visit 06/26/2020 11:00a [facility] MICHAEL Rubalcava L02.415 Cutaneous abscess of right l ower limb L03.115 Cellulitis of right lower li mb Office Visit 05/25/2020 2:40p [facility] MICHAEL Rubalcava F43.11 Post-traumatic stress disord er, acute Assessments Date Code Description Provider 10/31/2020 L40.9 Psoriasis MICHAEL Rubalcava 10/31/2020 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, predominantly inattentive type MICHAEL Rubalcava 10/31/2020 F41.1 Generalized anxiety disorder MICHAEL Lira 10/31/2020 Z71.89 Other specified counseling MICHAEL Maza 06/30/2020 L02.415 Cutaneous abscess of right lower limb MICHAEL Rubalcava 06/26/2020 L02.415 Cutaneous abscess of right lower limb MICHAEL Rubalcava 06/26/2020 L03.115 Cellulitis of right lower limb M MICHAEL Maya 05/25/2020 F43.11 Post-traumatic stress disorder, acute MICHAEL Rubalcava Plan of Treatment 10/31/2020 - MICHAEL Rubalcava* L40.9 Psoriasis* Comments:* Controlled well with Cosentyx which is controlling rash well. * 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 hyperactivity disorder, predominantly inattentive type * Comments:* Currently controlling symptoms without the use of medication. Continue with learned behavioral techniques. * F41.1 Generalized anxiety disorder* Comments:* Previously tried and failed Prozac, Celexa, Effexor, and Zoloft but not tolerated or effective. Consider re establishing with a counselor. * Z71.89 Other specified counseling* Comments:* Unfortunately you do not have a medical reason to be except from the COVID vaccine. 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 Functional Status Description No Information Available Mental Status Description No Information Available Referrals Description No Information Available
--- OUTSIDE RECORDS SUMMARY | 2021-01-13 12:07 | CCD | Continuity of Care Document ---
Author Author Staci DAWKINS PA Organization Unknown Address [place] [address] Phone [phone] Care Team Providers Care Principal Programmer Name Role Phone Annelise Thomas D.O. AUTM [phone] Camron Ndiaye M.D. AUTM [phone] Manfred Barrera M.D. AUTM [phone] Austyn Byrne LCSW AUTM [phone] Steph Jordan DO AUTM [phone] Usha Martinez DO AUTM [phone] Problems Active Problems Provider Date Mild recurrent [...] CPT Code Status Date Vaccine Lot # [id number] Given 01/31/2020 Influenza Virus Vaccine, Quadrivalent, Split, Preservative Free [id number] Vital Signs Date Vital Result Comment 10/31/2020 1:09pm BP Systolic 128 mmHg BP Diastolic 72 mmHg Height 66 inches 5'6" Weight 166.38 lb BMI (Body Mass Index) 26.9 kg/m2 Heart Rate 97 /min Respiratory Rate 14 /min Body Temperature 98.5 F O2 % BldC Oximetry 99 % [place] Body Weight 130 lb 06/30/2020 1:14pm BP Systolic 130 mmHg BP Diastolic 80 mmHg Height 66 inches 5'6" Weight 168.00 lb BMI (Body Mass Index) 27.1 kg/m2 Heart Rate 87 /min Respiratory Rate 20 /min Body Temperature 99.9 F O2 % BldC Oximetry 98 % [place] Body Weight 130 lb Results Test Acquired Date Facility Test Result H/L Range Note Culture Wound And Gram Stain 06/28/2020 [facility] Outpati ent Testing (Registration) [address] [place], [place] [id number] [phone] Gram Stain (SEE NOTE) Normal 1 Wound Culture FULL REPORT IN L <SEE NOTE> Normal 2 Sars Flu A+B 05/25/2020 [facility] Outpatient Testi ng (Registration) [address] [place] [address] [phone] Influenza A Amplification NEGATIVE Normal Negati ve 3 Influenza B Amplification NEGATIVE Normal Negative 4 RSV Amplification NEGATIVE Normal Negative 5 Sars Covid-19 Amplification NEGATIVE Normal Negative 6 Istat Chem8+ Panel 05/25/2020 [facility] Outpatient Testi ng (Registration) [address] [place] [address] [phone] iSTAT HCT 45.0 % Normal 38.0-51.0 iSTAT Glucose 98 mg/dL Normal 70-105 iSTAT Sodium 143 mEq/L Normal 136-145 iSTAT Potassium 4.1 mEq/L Normal 3.5-5.1 iSTAT CA++ 5.0 mg/dL Normal 4.5-5.3 iSTAT Chloride 106 mEq/L Normal 98-109 iSTAT Co2 27.0 MM/L Normal 23.0-27.0 iSTAT BUN 13 mg/dL Normal 8-26 iSTAT Creatinine 0.7 mg/dL Normal 0.6-1.3 CBC With Differential 05/25/2020 [facility] Outpatient Anne ting (Registration) [address] [place] [address] [phone] White Blood Count 8.9 10 Normal 4.0-10.0 [...] 36.0-66.0 Lymph % 33.4 % Normal 24.0-44.0 [place] % 7.8 % Normal 2.0-8.0 Eos % 6.5 % High 0.0-3.0 Baso % 0.7 % Normal 0.0-1.0 Immature Granulocyte % 0.3 % Normal 0-3.0 Nucleated Red Blood Cell % 0.0 % Normal 0-0 Neutrophils # 4.6 10 Normal 1.5-8.5 Lymph # 3.0 10 Normal 1.5-5.0 [place] # 0.7 10 Normal 0.0-0.8 Eos # 0.6 10 High 0.0-0.5 Baso # 0.1 10 Normal 0.0-0.2 Basic Metabolic Profile 05/25/2020 [facility] Outpatient T alexa (Registration) [address] [place] [address] [phone] Glucose, Fasting 97 mg/dL Normal 70-100 Blood [...] pathogens. DISCLAIMER: Testing was performed using the [employer] SARS-CoV-2 test. This test was developed and its performance characteristics determined by [employer]. 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 Procedures Date Code Description Status 10/31/2020 69253 Office/Outpatient Established [facility] 20-29 Min Completed 06/30/2020 50286 Office/Outpatient Established Lo w MDM 20-29 Min Completed 06/26/2020 23932 Office/Outpatient Established Lo w MDM 20-29 Min Completed 05/25/2020 29436 Office/Outpatient Established Lo w MDM 20-29 Min Completed Medical Devices Description No Information Available Encounters Type Date Location Provider Dx Diagnosis Office Visit 10/31/2020 1:00p [facility] MICHAEL Rubalcava L40.9 Psoriasis, unspecified 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, predom inattentive type F41.1 Generalized anxiety disorder Z71.89 Other specified counseling Office Visit 06/30/2020 1:10p [facility] MICHAEL Rubalcava L02.415 Cutaneous abscess of right l ower limb Office Visit 06/26/2020 11:00a [facility] MICHAEL Rubalcava L02.415 Cutaneous abscess of right l ower limb L03.115 Cellulitis of right lower li mb Office Visit 05/25/2020 2:40p [facility] MICHAEL Rubalcava F43.11 Post-traumatic stress disord er, [...]
--- OUTSIDE RECORDS SUMMARY | 2021-01-13 12:07 | CCD | Continuity of Care Document ---
Author Author Staci DAWKINS PA Organization Unknown Address [place] [address] Phone [phone] Care Team Providers Care Mononitrotoluene Operator Name Role Phone Annelise Thomas D.O. AUTM Camron Ndiaye M.D. AUTM [phone] Manfred Barrera M.D. AUTM [phone] Austyn Byrne LCSW AUTM [phone] Steph Jordan DO AUTM [phone] Usha Martinez DO AUTM [phone] Problems Active Problems Provider Date Mild recurrent [...] CPT Code Status Date Vaccine Lot # [id number] Given 01/31/2020 Influenza Virus Vaccine, Quadrivalent, Split, Preservative Free [id number] Vital Signs Date Vital Result Comment 10/31/2020 1:09pm BP Systolic 128 mmHg BP Diastolic 72 mmHg Height 66 inches 5'6" Weight 166.38 lb BMI (Body Mass Index) 26.9 kg/m2 Heart Rate 97 /min Respiratory Rate 14 /min Body Temperature 98.5 F O2 % BldC Oximetry 99 % [place] Body Weight 130 lb 06/30/2020 1:14pm BP Systolic 130 mmHg BP Diastolic 80 mmHg Height 66 inches 5'6" Weight 168.00 lb BMI (Body Mass Index) 27.1 kg/m2 Heart Rate 87 /min Respiratory Rate 20 /min Body Temperature 99.9 F O2 % BldC Oximetry 98 % [place] Body Weight 130 lb Results Test Acquired Date Facility Test Result H/L Range Note Culture Wound And Gram Stain 06/28/2020 [facility] Outpati ent Testing (Registration) 0 [place], [place] [id number] [phone] Gram Stain (SEE NOTE) Normal 1 Wound Culture FULL REPORT IN L <SEE NOTE> Normal 2 Sars Flu A+B 05/25/2020 [facility] Outpatient Testi ng (Registration) [address] [place] [address] [phone] Influenza A Amplification NEGATIVE Normal Negati ve 3 Influenza B Amplification NEGATIVE Normal Negative 4 RSV Amplification NEGATIVE Normal Negative 5 Sars Covid-19 Amplification NEGATIVE Normal Negative 6 Istat Chem8+ Panel 05/25/2020 [facility] Outpatient Testi ng (Registration) [address] [place] [address] [phone] iSTAT HCT 45.0 % Normal 38.0-51.0 iSTAT Glucose 98 mg/dL Normal 70-105 iSTAT Sodium 143 mEq/L Normal 136-145 iSTAT Potassium 4.1 mEq/L Normal 3.5-5.1 iSTAT CA++ 5.0 mg/dL Normal 4.5-5.3 iSTAT Chloride 106 mEq/L Normal 98-109 iSTAT Co2 27.0 MM/L Normal 23.0-27.0 iSTAT BUN 13 mg/dL Normal 8-26 iSTAT Creatinine 0.7 mg/dL Normal 0.6-1.3 CBC With Differential 05/25/2020 [facility] Outpatient Anne ting (Registration) [address] [place] [address] [phone] White Blood Count 8.9 10 Normal 4.0-10.0 [...] 36.0-66.0 Lymph % 33.4 % Normal 24.0-44.0 [place] % 7.8 % Normal 2.0-8.0 Eos % 6.5 % High 0.0-3.0 Baso % 0.7 % Normal 0.0-1.0 Immature Granulocyte % 0.3 % Normal 0-3.0 Nucleated Red Blood Cell % 0.0 % Normal 0-0 Neutrophils # 4.6 10 Normal 1.5-8.5 Lymph # 3.0 10 Normal 1.5-5.0 [place] # 0.7 10 Normal 0.0-0.8 Eos # 0.6 10 High 0.0-0.5 Baso # 0.1 10 Normal 0.0-0.2 Basic Metabolic Profile 05/25/2020 [facility] Outpatient T alexa (Registration) [address] [place] [address] [phone] Glucose, Fasting 97 mg/dL Normal 70-100 Blood [...] pathogens. DISCLAIMER: Testing was performed using the [employer] SARS-CoV-2 test. This test was developed and its performance characteristics determined by [employer]. This test has not been FDA cleared [...] Little GFR Left ESRD GFR <15 on [employer] Procedures Date Code Description Status 10/31/2020 96153 Office/Outpatient Established [facility] 20-29 Min Completed 06/30/2020 33202 Office/Outpatient Established Lo w MDM 20-29 Min Completed 06/26/2020 93645 Office/Outpatient Established Lo w MDM 20-29 Min Completed 05/25/2020 51464 Office/Outpatient Established Lo w MDM 20-29 Min Completed Medical Devices Description No Information Available Encounters Type Date Location Provider Dx Diagnosis Office Visit 10/31/2020 1:00p [facility] MICHAEL Rubalcava L40.9 Psoriasis, unspecified 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, predom inattentive type F41.1 Generalized anxiety disorder Z71.89 Other specified counseling Office Visit 06/30/2020 1:10p [facility] MICHAEL Rubalcava L02.415 Cutaneous abscess of right l ower limb Office Visit 06/26/2020 11:00a [facility] MICHAEL Rubalcava L02.415 Cutaneous abscess of right l ower limb L03.115 Cellulitis of right lower li mb Office Visit 05/25/2020 2:40p [facility] MICHAEL Rubalcava F43.11 Post-traumatic stress disord er, [...]
--- OUTSIDE RECORDS SUMMARY | 2021-01-13 12:07 | CCD | Continuity of Care Document ---
Author Author Staci BRIGGS [facility] Organization Unknown Address [address], [address] [place] [address] Phone [phone] Care Team Providers Care Information Management Manager Name Role Phone No PCP (Not For Referring DR) Joe Enriquez AUTAnnemarie [phone] Problems Description No Information Available Social History [...] under the skin every 4 weeks 2units Phyl Chester [facility] 11/02/2019 Clobetasol Propionate 0.05% Cream apply to affected area sparingly twice a day x 2 weeks 30gm R21 Ph yl [facility]2019 Zoloft 25mg Tablets 1tabs Radha Briggs [facility] 07/20/2019 Cosentyx Sensoready (300 MG) 150mg/ml Solution Auto-Inject inject 300 mg (2 pens) every 4 weeks (maintenance) 2ml ALE Stroud-JADEN 07/20/2019 Unknown Protonix Unknown Singulair Unknown Immunizations [...] 3.8-4.8 Laboratory test finding 10/09/2020 [facility] PDF [id number] SEE IMAGE Aerobic Bacterial Culture 09/21/2020 [facility] Aerobic Bacterial Culture Final report Abnormal 5 Result 1 Klebsiella aerog <SEE NOTE> Abnormal 6 Result 2 Diphtheroids 7 Antimicrobial Susceptibility See Comment: 8 Laboratory test finding 09/21/2020 [facility] PDF [id number] SEE IMAGE Laboratory test finding 09/20/2020 [facility] [...] S Procedures Date Code Description Status 10/09/2020 06974 Office/Outpatient Established Mo d MDM 30-39 Min [...] therapeutic dr eason level monitoring 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4 Other melanin hyperpigmentation Radha Briggs [facility] 10/09/2020 L40.0 Psoriasis vulgaris Radha Briggs [facility] 10/09/2020 Z51.81 Encounter for therapeutic drug l evel monitoring Radha Briggs [facility] 10/09/2020 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 * Z79.899 Other [facility] (current) drug therapy* Comments:* See above. * Z12.83 Encounter for screening for malignant neoplasm of skin* Comments:* See above. * Follow up:* Yearly/PRN - [facility] w/ET 6 month - psoriasis fu w/ ET Functional Status Description No Information Available Mental Status Description No Information Available Referrals Description No Information Available
--- OUTSIDE RECORDS SUMMARY | 2021-01-13 12:08 | CCD ---
Author Author [facility] Organization [facility] Address Unknown Phone Unavailable Care Team Providers Care Network Relay Tester Name Role Phone NON-STAFF, PHYSICIAN Unavailable Unavailable SonjaPamella ASSISTANT INVENTORY MANAGER Unavailable Unavailable Sonja, Pamella Ken ASSISTANT INVENTORY MANAGER Unavailable Unavailable Sonja, Pamella Jesus Manuel ASSISTANT INVENTORY MANAGER Unavailable Unavailable [place], Pamella Jesus Manuel ASSISTANT INVENTORY MANAGER Unavailable Unavailable Sonja, Pamella Jesus Manuel ASSISTANT INVENTORY MANAGER Unavailable Unavailable Sonja, Pamella Jesus Manuel ASSISTANT INVENTORY MANAGER Unavailable Unavailable Sonja, Pamella Jesus Manuel ASSISTANT INVENTORY MANAGER Unavailable Unavailable [place], Pamella Jesus Manuel ASSISTANT INVENTORY MANAGER Unavailable Unavailable Sonja, Pamella Jesus Manuel ASSISTANT INVENTORY MANAGER Unavailable Unavailable Sonja, Pamella Jesus Manuel ASSISTANT INVENTORY MANAGER Unavailable Unavailable [place], Pamella Jesus Manuel ASSISTANT INVENTORY MANAGER Unavailable Unavailable Sonja, Pamella Jesus Manuel ASSISTANT INVENTORY MANAGER Unavailable Unavailable [place], Pamella Jesus Manuel ASSISTANT INVENTORY MANAGER Unavailable Unavailable Sonja, Pamella Jesus Manuel ASSISTANT INVENTORY MANAGER Unavailable Unavailable Delaney LILLY Unavailable Unavailable Juju Lilly Unavailable Juju Lilly Unavailable Wilfred'denice, A [place] PA Unavailable Unavailable O'denice, A [...] Unavailable O'denice, A [place] PA Unavailable Unavailable [place], [place] Unavailable Unavailable ANN, E CHELSEA DO Unavailable Unavailable ANN, E CHELSEA DO Unavailable Unavailable ANN, E CHELSEA DO Unavailable Unavailable ANN, E CHELSEA DO Unavailable Unavailable ANN, E CHELSEA DO Unavailable Unavailable ANN, E CHELSEA DO Unavailable Unavailable ANN, E CHELSEA DO Unavailable Unavailable ANN, E CHELSEA DO Unavailable Unavailable ANN, E CHELSEA DO Unavailable Unavailable ANN, E CHELSEA DO Unavailable Unavailable ANN, E CHELSEA DO Unavailable Unavailable ANN, E CHELSEA DO Unavailable Unavailable ANN, E CHELSEA DO Unavailable Unavailable ANN, E CHELSEA DO Unavailable Unavailable ANN, E CHELSEA DO Unavailable Unavailable ANN, E CHELSEA DO Unavailable Unavailable ANN, E CHELSEA DO Unavailable Unavailable ANN, E CHELSEA DO Unavailable Unavailable ANN, E CHELSEA DO Unavailable Unavailable ANN, E CHELSEA DO Unavailable Unavailable ANN, E CHELSEA DO Unavailable Unavailable ANN, E CHELSEA DO Unavailable Unavailable Duvall, A Phyl ASSISTANT INVENTORY MANAGER-BC Unavailable Unavailable Duvall, A Phyl ASSISTANT INVENTORY MANAGER-BC Unavailable Unavailable Duvall, A Phyl ASSISTANT INVENTORY MANAGER-BC Unavailable Unavailable Duvall, A Phyl ASSISTANT INVENTORY MANAGER-BC Unavailable Unavailable Duvall, A Phyl ASSISTANT INVENTORY MANAGER-BC Unavailable Unavailable Duvall, A Phyl ASSISTANT INVENTORY MANAGER-BC Unavailable Unavailable Duvall, A Phyl ASSISTANT INVENTORY MANAGER-BC Unavailable Unavailable Duvall, A Phyl ASSISTANT INVENTORY MANAGER-BC Unavailable Unavailable Duvall, A Phyl ASSISTANT INVENTORY MANAGER-BC Unavailable Unavailable Duvall, A Phyl ASSISTANT INVENTORY MANAGER-BC Unavailable Unavailable Duvall, A Phyl ASSISTANT INVENTORY MANAGER-BC Unavailable Unavailable Duvall, A Phyl ASSISTANT INVENTORY MANAGER-BC Unavailable Unavailable Duvall, A Phyl ASSISTANT INVENTORY MANAGER-BC Unavailable Unavailable Duvall, A Phyl ASSISTANT INVENTORY MANAGER-BC Unavailable Unavailable Duvall, A Phyl ASSISTANT INVENTORY MANAGER-BC Unavailable Unavailable Duvall, A Phyl ASSISTANT INVENTORY MANAGER-BC Unavailable Unavailable Duvall, A Phyl ASSISTANT INVENTORY MANAGER-BC Unavailable Unavailable Duvall, A Phyl ASSISTANT INVENTORY MANAGER-BC Unavailable Unavailable Duvall, A Phyl ASSISTANT INVENTORY MANAGER-BC Unavailable Unavailable Duvall, A Phyl ASSISTANT INVENTORY MANAGER-BC Unavailable Unavailable Duvall, A Phyl ASSISTANT INVENTORY MANAGER-BC Unavailable Unavailable Duvall, A Phyl ASSISTANT INVENTORY MANAGER-BC Unavailable Unavailable Duvall, A Phyl ASSISTANT INVENTORY MANAGER-BC Unavailable Unavailable Duvall, A Phyl ASSISTANT INVENTORY MANAGER-BC Unavailable Unavailable Duvall, A Phyl ASSISTANT INVENTORY MANAGER-BC Unavailable Unavailable Duvall, A Phyl ASSISTANT INVENTORY MANAGER-BC Unavailable Unavailable Duvall, A Phyl ASSISTANT INVENTORY MANAGER-BC Unavailable Unavailable Duvall, A Phyl ASSISTANT INVENTORY MANAGER-BC Unavailable Unavailable Duvall, A Phyl ASSISTANT INVENTORY MANAGER-BC Unavailable Unavailable Duvall, A Phyl ASSISTANT INVENTORY MANAGER-BC Unavailable Unavailable Duvall, A Phyl ASSISTANT INVENTORY MANAGER-BC Unavailable Unavailable Duvall, A Phyl ASSISTANT INVENTORY MANAGER-BC Unavailable Unavailable Aminata, Savana Unavailable Unavailable Aminata, Savana Unavailable Unavailable Aminata, Savana Unavailable Unavailable PAULO, MICHELLE NERI PA-C Unavailable Unavailable PAULO, MICHELLE NERI PA-C Unavailable Unavailable PAULO, MICHELLE NERI PA-C Unavailable Unavailable PAULO, MICHELLE NERI PA-C Unavailable Unavailable PAULO, MICHELLE NERI PA-C Unavailable Unavailable PAULO, MICHELLE NERI PA-C Unavailable Unavailable PAULO, MICHELLE NERI PA-C Unavailable Unavailable PAULO, MICHELLE NERI PA-C Unavailable Unavailable PAULO, MICHELLE NERI PA-C Unavailable Unavailable PAULO, MICHELLE NERI PA-C Unavailable Unavailable EGORHO, F NAUN FPMHNP Unavailable Unavailable EGORHO, F NAUN FPMHNP Unavailable Unavailable EGORHO, F NAUN FPMHNP Unavailable Unavailable EGORHO, F NAUN FPMHNP Unavailable Unavailable EGORHO, F NAUN FPMHNP Unavailable Unavailable EGORHO, F NAUN FPMHNP Unavailable Unavailable EGORHO, F NAUN FPMHNP Unavailable Unavailable EGORHO, F NAUN FPMHNP Unavailable Unavailable Re-disclosure Warning The records that [...] is protected by Article 27-F of the [place] Public Health law. If you continue you may have access to information: Regarding HIV / AIDS; Provided by facilities licensed or operated by the [place] Office of Mental Health; or Provided by the [place] Office for People With Developmental Disabilities. If such information is present, then the following [place] mandated warning applies: This information has [...] law may result in a fine or assisted sentence or both. A general authorization for the release of medical or other information is NOT sufficient authorization for further disc losure. Family History Family Member Name Family Member Gender Family Member Status Date o f Status Description Data Source(s) Unknown Female Problem MEDENT ([facility]) Unknown Male Problem [facility] Unknown Unknown Problem [facility] ([facility] Encounters Encounter Providers Location Date Indications Data Source(s ) [place] [address] [address] 01/03/2021 12:00:00 AM EDT [facility] [place] [address] [address] 01/01/2021 12:00:00 AM EDT [facility]) Outpatient Attender: Ky RODRIGUEZ [facility] 10/31/2020 01:00:00 PM EDT MEDENT ([facility]) Outpatient Attender: Radha Duvall ASSISTANT INVENTORY MANAGER-BC Main Office 0 10/09/2020 11:30:00 AM EDT MEDENT ([facility]) Outpatient Attender: NERI BATES PA-C 08/30/2020 05:00:00 PM [facility] Outpatient Attender: NAUN ROLDAN 08/24/2020 01:00: 00 PM [facility] Outpatient Attender: Juju Lilly 08/24/2020 10:30:00 AM [facility] Outpatient Attender: Juju Lilly 08/16/2020 04:30:00 PM E [facility] Outpatient Attender: Juju Lilly 08/09/2020 04:29:00 PM E [facility] Admission cancelled. Disregard status an d admitted date. Outpatient Attender: NAUN ROLDAN 08/09/2020 03:30: 00 PM [facility] Outpatient Attender: Juju Lilly 08/07/2020 02:00:00 PM E [facility] Outpatient Attender: Juju Lilly 08/02/2020 04:00:00 PM E [facility] Outpatient Attender: Juju Lilly 07/31/2020 06:00:00 PM E [facility] Outpatient [address] [facility] [address] 07/31/2020 12:00:00 AM EDT [facility]) Outpatient Attender: NAUN ROLDAN 07/27/2020 03:00: 00 PM [facility] Outpatient Attender: Juju Lilly 07/26/2020 05:00:00 PM E [facility] Outpatient Attender: Juju Lilly 07/17/2020 09:59:00 AM E [facility] Outpatient Attender: NAUN ROLDAN 07/13/2020 04:47: 00 PM [facility] Outpatient Attender: Juju LillyAttender: JUJU LILLY 07/10/2020 10:49:00 AM [facility] Outpatient Attender: Ky RODRIGUEZ [facility] 06/30/2020 01:10:00 PM EDT MEDENT ([facility] Outpatient Attender: Savana Coates 06/27/2020 09:28:00 AM [facility] Outpatient Attender: Ky RODRIGUEZ [facility] 06/26/2020 11:00:00 AM EDT MEDENT ([facility]) Outpatient Attender: CHELSEA Kidd/Appling/Paulo/Reind l 06/12/2020 01:00:00 PM EDT MED[facility] ([facility] Unknown [address] [facility], [facility] [address] 06/09/2020 12:00:00 AM EDT [facility]) Outpatient Attender: Ky RODRIGUEZ [facility] 05/25/2020 01:40:00 PM EST MEDENT ([facility]) Outpatient Attender: CHELSEA Kidd/Appling/Paulo/Reind l 05/15/2020 01:15:00 PM EST MED[facility] ([facility]) ( [place]) [facility] Nurse Visit [address] [place] [address] 05/12/2020 12:00:00 AM EST eCW1 ([facility]) Outpatient [address] [facility], [facility] [address] 05/01/2020 12:00:00 AM EST [facility]1 ([facility]) Outpatient Attender: Ky RODRIGUEZ [facility] 04/27/2020 01:30:00 PM EST MEDENT (Family [facility]) ( [place]) [facility] Post Op [address] [place] [address] 04/24/2020 12:00:00 AM EST eCW1 ([facility]) [place] [address] [facility] [address] 04/19/2020 12:00:00 AM EST [facility] [place] [address] [facility] [address] 04/19/2020 12:00:00 AM EST [facility]) [place] [address] [address] 04/17/2020 12:00:00 AM EST [facility]) [place] [address] [facility] [address] 04/13/2020 12:00:00 AM EST [facility]) Outpatient Attender: [place] Chavessultant: PHYSICIAN NO N-STAFF 04/12/2020 04:52:00 PM EST - 04/12/2020 05:52:00 PM EST [facility] Outpatient Attender: Ky RODRIGUEZ [facility] 04/12/2020 02:30:00 PM EST MEDENT ([facility] ([facility] [address] [place] [address] 02/25/2020 12:00:00 AM EST eCW1 ([facility]) Outpatient Attender: Ky RODRIGUEZ [facility] 02/18/2020 12:40:00 PM EST MEDENT ([facility]) Outpatient Attender: Ky RODRIGUEZ [facility] 01/31/2020 12:30:00 PM EST MEDENT ([facility]) Outpatient Attender: Jesus Manuel Barrera/Ivette/Paulo/Daniel nddelaney 01/04/2020 03:30:00 PM EDT MEDENT ([facility]) Outpatient Attender: Ky RODRIGUEZ [facility] 12/30/2019 01:00:00 PM EDT MEDENT ([facility]) Immunizations Vaccine Date Status Description Data Source(s) COVID-19 VACCINE Moderna 11/16/2020 12:00:00 AM EDT completed [facility] Vaccine Series Complete: NOThis Data was Submitted to [facility] [employer]. 05/12/2020 10:27:00 AM EST completed e CW1 ([facility]) 05/12/2020 10:27:00 AM EST completed e CW1 ([facility]) 05/12/2020 10:27:00 AM EST completed e CW1 ([facility]) 05/12/2020 10:27:00 AM EST completed e CW1 ([facility]) 05/12/2020 10:27:00 AM EST completed e CW1 ([facility]) 05/12/2020 10:27:00 AM EST completed e CW1 ([facility]) 05/12/2020 10:27:00 AM EST completed e CW1 ([facility]) 02/25/2020 10:37:00 AM EST completed e CW1 ([facility]) 02/25/2020 10:37:00 AM EST completed e CW1 ([facility]) 02/25/2020 10:37:00 AM EST completed e CW1 ([facility]) 02/25/2020 10:37:00 AM EST completed e CW1 ([facility]) 02/25/2020 10:37:00 AM EST completed e CW1 ([facility]) 02/25/2020 10:37:00 AM EST completed e CW1 ([facility]) 02/25/2020 10:37:00 AM EST completed e CW1 ([facility]) 02/25/2020 10:37:00 AM EST completed e CW1 ([facility]) 02/25/2020 10:37:00 AM EST completed e CW1 ([facility]) 02/25/2020 10:37:00 AM EST completed e CW1 ([facility]) 02/25/2020 10:37:00 AM EST completed e CW1 ([facility]) 02/25/2020 10:37:00 AM EST completed e CW1 ([facility]) 02/25/2020 10:37:00 AM EST completed e CW1 ([facility]) New in 2011. IIV4 01/31/2020 01:00:00 PM EST completed MEDENT ([facility]) Medications Medication Brand Name Start Date Product Form Dose Route Admi nistrative Instructions Pharmacy Instructions Status Indications Reaction Description Data Source(s) Sulfamethoxazole 800 MG / Trimethoprim 160 MG Oral Tablet [B actrim] Bactrim DS 09/27/2020 12:00:00 AM EDT ORAL active MEDENT ([facility]) Sulfamethoxazole 800 MG / Trimethoprim 160 MG Oral Tablet [B actrim] Bactrim DS 06/26/2020 12:00:00 AM EDT ORAL completed MEDENT ([facility]) pantoprazole 40 MG Delayed Release Oral Tablet Pantoprazole Sodium 06/16/2020 12:00:00 AM EDT active M EDENT ([facility], ) Tretinoin 0.25 MG/ML Topical Cream Tretinoin 04/29/2020 12:00:00 AM EST active MED[facility] ([facility]) Ibuprofen 800 MG Oral Tablet Ibuprofen 04/21/2020 12:00:00 AM EST ORAL active MEDENT ([facility]) Sulfamethoxazole 800 MG / Trimethoprim 160 MG Oral Tablet [B actrim] Bactrim DS 04/12/2020 12:00:00 AM EST ORAL completed MEDENT ([facility]) 24 HR Bupropion Hydrochloride 150 MG Extended Release Oral Tablet Bupropion Hydrochloride ER (XL) 02/18/2020 12:00:00 AM EST ORAL c ompleted MEDENT ([facility]) 24 HR venlafaxine 37.5 MG Extended Release Oral Capsule [Eff exor] Effexor XR 01/31/2020 12:00:00 AM EST ORAL completed MED[facility] ([facility]) Sucralfate 100 MG/ML Oral Suspension [Carafate] Carafate 12/30/2019 12:00:00 AM EDT ORAL completed MEDENT ([facility]) 24 HR Amphetamine aspartate 5 MG / Amphe tamine Sulfate 5 MG / Dextroamphetamine saccharate 5 MG / Dextroamphetamine Sulfate 5 MG Extended Release Oral Capsule [Adderall] Adderall XR 12/30/2019 12:00:00 AM EDT ORAL active MEDENT ([facility]) pantoprazole 40 MG Delayed Release Oral Tablet [Protonix] Pr otonix 12/30/2019 12:00:00 AM EDT ORAL active M EDENT ([facility]) Insurance Providers Payer name Policy type / Coverage type Policy ID Covered democrat ID Covered democrat's relationship to raango Policy Arango Plan Information [facility] [id number] [facility] [id number] [facility] [id number] [id number] [facility]/P [id number] 01 [id number] O UNAVAILABLE UNAVAILA BLE [facility] O [id number] S [id number] [place] [address] Commercial [id number] Family Dependent [id number] [place] [address] Commercial [id number] Family Dependent [id number] [facility] (2017) Health Maintenance Organization (HMO) [id number] Family Dependent [id number] [place] [address] Commercial [id number] Family Dependent [id number] [facility] (2017) Health Maintenance Organization (HMO) [id number] Family Dependent [id number] SELF PAY O UNAVAILABLE S UNAVAILA BLE SELF PAY ONLY [id number] SP [id number] [facility] [id number] [facility] [id number] [facility] [id number] [facility] [id number] [facility] [id number] Family Dependent [id number] Problems, Conditions, and Diagnoses Code Display Name Description Problem Type Effective Dates Data Source(s) F43.20 Adjustment disorder, unspecified ADJUSTMENT DISO RDER, UNSPECIFIED Diagnosis 08/30/2020 05:00:00 PM [facility] F41.9 Anxiety disorder, unspecified ANXIETY DISORDER, UNSPEC IFIED Diagnosis 08/30/2020 05:00:00 PM [facility] F31.9 Bipolar disorder, unspecified BIPOLAR DISORDER, UNSPEC IFIED Diagnosis 08/30/2020 05:00:00 PM [facility] F43.10 Post-traumatic stress disorder, unspecif ied POST-TRAUMATIC STRESS DISORDER, UNSPECIFIED Diagnosis 08/30/2020 05:00:00 PM [facility] G43.009 Migraine without aura, not intractable, without status migrainosus MIGRAINE W/O AURA, NOT INTRACTABLE, W/O STATUS AISHA Diagnosis 03:00:00 PM [facility] F32.9 Major depressive disorder, single episod e, unspecified MAJOR DEPRESSIVE DISORDER, SINGLE EPISODE, UNSPECI Diagnosis 07/26/2020 05:00:00 PM [facility] F41.1 Generalized anxiety disorder GENERALIZED ANXIETY DISOR LULU Diagnosis 07/26/2020 05:00:00 PM [facility] F39 Unspecified mood [affective] disorder UNSPECIFIE D MOOD [AFFECTIVE] DISORDER Diagnosis 07/13/2020 04:47:00 PM [facility] F31.30 Bipolar disorder, current ep isode depressed, mild or moderate severity, unspecified BIPOLAR DISORD, CRNT EPSD DEPRESS, MILD OR MOD SEV Diagnosis 06/27/2020 09:28:00 AM [facility] R928 Other abnormal and inconclusive findings on diagnostic imaging of breast Other abnormal and inconclusive findings on diagnostic imaging of breast Diagnosis 04/12/2020 04:52:00 PM [facility] N611 Abscess of the breast and nipple Abscess of the breast and nipple Diagnosis 04/12/2020 04:52:00 PM [facility] Z90.11 [id number] Absence of right breast Problem 04/19/2020 1 2:00:00 AM EST eCW1 ([facility]) J45.40 Uncomplicated moderate persistent asthma Uncomplicated moderate persistent asthma Problem 12/30/2019 12:00:00 AM [facility] K21.00 Gastro-esophageal reflux disease with es ophagitis Gastro-esophageal reflux disease with esophagitis Problem 12/30/2019 12:00:00 AM EDT M EDENT ([facility]) L40.9 Psoriasis Psoriasis Problem 12/30/2019 12:00:00 AM ED T MEDENT ([facility]) Surgeries/Procedures Procedure Description Date Indications Data Source(s) OFFICE OUTPATIENT VISIT 15 MINUTES 10/31/2020 12:00:00 AM EDT MEDENT ([facility]) OFFICE OUTPATIENT VISIT 25 MINUTES 10/09/2020 12:00:00 AM EDT MEDENT ([facility]) OFFICE OUTPATIENT VISIT 15 MINUTES 06/30/2020 12:00:00 AM EDT MEDENT ([facility]) OFFICE OUTPATIENT VISIT 15 MINUTES 06/26/2020 12:00:00 AM EDT MEDENT ([facility]) OFFICE OUTPATIENT VISIT 15 MINUTES 05/25/2020 12:00:00 AM EST MEDENT ([facility]) Injection, medroxyprogesterone acetate for contraceptive use , 150 mg 05/12/2020 12:00:00 AM EST eCW1 ([facility]) Injection, medroxyprogesterone acetate for contraceptive use , 150 mg 02/25/2020 12:00:00 AM EST eCW1 ([facility]) Results ID Date Data Source [id number] 10/09/2020 11:53:00 AM EDT MEDENT ([facility]) Name Value Range Interpretation Code Description Data Agnieszka rce(s) Supporting Document(s) Laboratory test finding (navigational concept) Laboratory test result MEDENT ([facility]) ID Date Data Source [id number] 10/09/2020 11:53:00 AM EDT MEDENT ([facility]) Name Value Range Interpretation Code Description Data Agnieszka rce(s) Supporting Document(s) Glucose [Mass/volume] in Serum or Plasma 124 mg/dL 65-99 Above high normal MEDENT ([facility]) Urea nitrogen [Mass/volume] in Serum or Plasma 10 mg/dL 6-20 [facility] ([facility]) Creatinine [Mass/volume] in Serum or Plasma 0.63 mg/dL 0.57-1.00 MED[facility] ([facility]) eGFR If NonAfricn Am 118 mL/min/1.73 [facility] ([facility]) Urea nitrogen/Creatinine [Mass Ratio] in Serum or Plasma 16 9 -23 MED[facility] ([facility]) eGFR If Africn Am 136 mL/min/1.73 [facility] ([facility]) [facility] currently reports eGFR in comp liance with the current recommendations of the National Kidney Foundation. [facility] will update reporting as new guidelines are published from the NKF-ASN Task force. Potassium [Moles/volume] in Serum or Plasma 4.2 mmol/L 3.5-5.2 MED[facility] ([facility]) Sodium [Moles/volume] in Serum or Plasma 139 mmol/L 134-144 MED[facility] ([facility]) Calcium [Mass/volume] in Serum or Plasma 9.6 mg/dL 8.7-10.2 MEDENT ([facility] Nurse [facility]) Carbon dioxide, total [Moles/volume] in Serum or Plasma 23 mmol/L 20 -29 MED[facility] ([facility]) Chloride [Moles/volume] in Serum or Plasma 105 mmol/L 96-106 MED[facility] ([facility] Nurse [facility]) Albumin [Mass/volume] in Serum or Plasma 4.9 g/dL 3.8-4.8 Above high normal MEDENT ([facility] Nurse [facility]) Phosphate [Moles/volume] in Serum or Plasma 3.3 mg/dL 3.0-4.3 [facility] ([facility]) ID Date Data Source [id number] 10/09/2020 11:53:00 AM EDT [facility] ([facility]) Name Value Range Interpretation Code Description Data Agnieszka rce(s) Supporting Document(s) Laboratory test finding (navigational concept) Laboratory test result [facility] ([facility]) ID Date Data Source [id number] 10/09/2020 11:53:00 AM EDT [facility] ([facility]) Name Value Range Interpretation Code Description Data Agnieszka rce(s) Supporting Document(s) Laboratory test finding (navigational concept) Laboratory test result [facility] ([facility]) The QuantiFERON-TB Gold Plus result is d etermined by subtracting the Nil value from either TB antigen (Ag) tube. The mitogen tube serves as a control for the test. Mycobacterium tuberculosis stimulated ga mma interferon [Units/volume] corrected for background in Blood 0.00 IU/ml [facility] ([facility]) Laboratory test finding (navigational concept) Laboratory test result [facility] ([facility]) QuantiFERON TB2 Ag Value 0.00 IU/ml [facility] NT ([facility]) Laboratory test finding (navigational concept) 0.00 IU/ml [facility] ([facility]) Laboratory test finding (navigational concept) Laboratory test result [facility] ([facility]) The specimen received for QuantiFERON te sting was incubated by the ordering institution. Specific procedures outlined in our Directory of Services and in the package insert for the QuantiFERON Gold (In Tube) test must be followed to enabl e for proper stimulation of cells for the production of interferon gamma. Chemiluminescence immunoassay methodology ID Date Data Source [id number] 10/09/2020 11:53:00 AM EDT [facility] ([facility]) Name Value Range Interpretation Code Description Data Agnieszka rce(s) Supporting Document(s) Protein [Mass/volume] in Serum or Plasma 7.4 g/dL 6.0-8.5 [facility] ([facility]) Bilirubin.total [Mass/volume] in Serum or Plasma 0.2 mg/dL 0.0-1.2 [facility] ([facility]) Bilirubin.conjugated [Mass/volume] in Serum or Plasma 0.08 mg/dL 0.00 -0.40 [facility] ([facility]) Alkaline phosphatase [Enzymatic activity/volume] in Serum or Plasma 82 IU/L 48-121 [facility] ([facility]) Alanine aminotransferase [Enzymatic activity/volume] in Seru m or Plasma 57 IU/L 0-32 Above high normal [facility] ([facility]) Aspartate aminotransferase [Enzymatic activity/volume] in Serum or Plasma 34 IU/L 0-40 [facility] ([facility]) ID Date Data Source [id number] 10/09/2020 11:53:00 AM EDT [facility] ([facility]) Name Value Range Interpretation Code Description Data Agnieszka rce(s) Supporting Document(s) Hepatitis A virus IgM Ab [Units/volume] in Serum by Im munoassay Laboratory test result [facility] ([facility]) Hepatitis B virus core Ab [Presence] in Serum or Plasm a by Immunoassay Laboratory test result [facility] ([facility] urse Practitioners) Hepatitis A virus Ab [Presence] in Serum by Immunoassay Labo ratory test result Abnormal (applies to non-numeric results) [facility] ([facility]) Hepatitis B virus core Ab [Presence] in Serum or Plasm a by Immunoassay Laboratory test result [facility] ([facility] Shilpa hayse Practition[facility]) Non Reactive: Inconsistent with immunity , less than 10 mIU/mL Reactive: Consistent with immunity, greater than 9.9 mIU/mL ID Date Data Source [id number] 10/09/2020 11:53:00 AM EDT [facility] ([facility]) Name Value Range Interpretation Code Description Data Agnieszka rce(s) Supporting Document(s) Leukocytes [#/volume] in Blood by Automated count 8.7 x10E3/uL 3.4-10 .8 [facility] ([facility]) Erythrocytes [#/volume] in Blood by Automated count 4.89 x10E6/uL 3.7 7-5.28 [facility] ([facility]) Hemoglobin [Mass/volume] in Blood 14.3 g/dL 11.1-15.9 [facility] ([facility]) Hematocrit [Volume Fraction] of Blood by Automated count 43.6 % 3 4.0-46.6 [facility] ([facility]) Erythrocyte mean corpuscular volume [Entitic volume] by Auto mated count 89 fL 79-97 [facility] ([facility] n[facility]) Erythrocyte distribution width [Ratio] by Automated count 12.8 % 11.7-15.4 [facility] ([facility]) Erythrocyte mean corpuscular hemoglobin [Entitic mass] by Automated count 29.2 pg 26.6-33.0 [facility] ([facility]) Erythrocyte mean corpuscular hemoglobin concentration [Mass/volume] by Automated count 32.8 g/dL 31.5-35.7 [facility] ([facility] act[facility]) Neutrophils/100 leukocytes in Blood by Automated count 59 % [facility] ([facility]) Platelets [#/volume] in Blood by Automated count 416 x10E3/uL 150-450 [facility] ([facility]) Lymphocytes/100 leukocytes in Blood by Automated count 28 % [facility] ([facility]) Eosinophils/100 leukocytes in Blood by Automated count 4 % [facility] ([facility]) Monocytes/100 leukocytes in Blood by Automated count 8 % [facility] ([facility]) Immature cells [#/volume] in Blood Laboratory test result [facility] ([facility]) Basophils/100 leukocytes in Blood by Automated count 1 % [facility] ([facility]) Neutrophils [#/volume] in Blood by Automated count 5.2 x10E3/uL 1.4-7 .0 [facility] ([facility]) Monocytes [#/volume] in Blood 0.7 x10E3/uL 0.1-0.9 [facility] ([facility]) Lymphocytes [#/volume] in Blood 2.4 x10E3/uL 0.7-3.1 [facility] ([facility]) Basophils [#/volume] in Blood by Automated count 0.1 x10E3/uL 0.0-0.2 [facility] ([facility]) Eosinophils [#/volume] in Blood by Automated count 0.3 x10E3/uL 0.0-0 .4 [facility] ([facility]) Immature granulocytes [#/volume] in Blood by Automated count 0.0 x10E3/uL 0.0-0.1 [facility] ([facility] Practitromelia robertson) Immature granulocytes/100 leukocytes in Blood by Automated count 0 % [facility] ([facility]) Nucleated erythrocytes/100 leukocytes [Ratio] in Blood by Automated count Laboratory test result [facility] ([facility]) Morphology [Interpretation] in Blood Narrative Laboratory test result [facility] ([facility]) ID Date Data Source [id number] 09/21/2020 07:12:00 AM EDT [facility] ([facility]) Name Value Range Interpretation Code Description Data Agnieszka rce(s) Supporting Document(s) Laboratory test finding (navigational concept) Laboratory test result [facility] ([facility]) Will treat for 14 days with Bactrim DS ID Date Data Source [id number] 09/21/2020 07:12:00 AM EDT [facility] ([facility]) Name Value Range Interpretation Code Description Data Agnieszka rce(s) Supporting Document(s) Bacteria identified in Unspecified specimen by Culture Laborator y test result Abnormal (applies to non-numeric results) [facility] ([facility]) Will treat for 14 days with Bactrim DS Bacteria identified in Unspecified specimen by Aerobe culture Laboratory test result Abnormal (applies to non-numeric results) [facility] ([facility]) Will treat for 14 days with Bactrim DS Bacteria identified in Unspecified specimen by Culture Laborator y test result [facility] ([facility]) Will treat for 14 days with Bactrim DS Other Antibiotic [Susceptibility] Laboratory test result [facility] ([facility]) Will treat for 14 days with Bactrim DS ID Date Data Source [id number] 09/20/2020 05:33:00 PM EDT [facility] ([facility]) Name Value Range Interpretation Code Description Data Agnieszka rce(s) Supporting Document(s) Bacteria identified in Unspecified specimen by Aerobe culture Laboratory test result [facility] ([facility]) ID Date Data Source [id number] 06/28/2020 10:43:00 PM EDT [facility] ([facility]) Name Value Range Interpretation Code Description Data Agnieszka rce(s) Supporting Document(s) Gram Stain Laboratory test result Normal (applies to non-n umeric results) [facility] ([facility]) FEW WBCS MODERATE RBCS FEW GRAM POSITIVE COCCI IN CLUSTERS Wound Culture Laboratory test result Normal (applies t o non-numeric results) [facility] ([facility]) <content>FULL REPORT IN LAB NOTES (e[facility] a nd [facility]).</content>
<content></content>
<content>ORGANISM 1: STAPH.AUREUS METHICILLIN RESIS</content>
<content></content>
<content>QUANTITY OF GROWTH HEAVY</content>
<content></content>
<content></content>
<content>ORG ANISM 1: STAPH.AUREUS METHICILLIN RESIS</content>
<content></content>
<content>STAPH.AUREUS METHICILLIN [...] S</content>
<content>CLINDAMYCIN PO 150mg q6h 0.25 S</content>
<content>NITROFURANTOIN PO 100mg BID 32 S</content>
<content>OXACILLIN IV 500mg q6h >=4 R</content>
<content>VANCOMYCIN IV 500mg q8h 1 S</content>
<content> LINEZOLID (ZYVOX) IV 600MG Q12HR 2 S</content>
<content>LINEZOLID (ZYVOX) PO 600MG Q12HR 2 S</content>
<content>An isolate with a (+) POSITIVE ICR test is considered</content>
<content>CLINDAMYCIN RESISTANT; however, clindamycin may still</content>
<content>be effective in some patients.</content>
< content>An isolate with a (-) NEGATIVE ICR test is considered</content>
<content>CLIDAMYCIN SENSITIVE.</content>
<content></content> ID Date Data Source [id number] 05/26/2020 02:53:00 AM EST [facility] ([facility], ) Name Value Range Interpretation Code Description Data Agnieszka rce(s) Supporting Document(s) Surgical pathology study Laboratory test result [facility] ([facility]) FINAL DIAGNOSIS Esophagus, biopsy: Squamous mucosa showing stroma fibrosis, reactive/reparative changes and infiltrate of eosinophils, in some area 10 eosinophils per high power field. 05/29/2020 - 112 CLINICAL DIAGNOSIS Food impaction 05/26/2020 - 1256 GROSS DIAGNOSIS Received in formalin labeled "biopsy of esophagus" and consists of a fragment of tissue 0.1 x 0.1 x 0.1 cm. All in one. -OA 05/26/2020 - 1256 Signed TEMO MOON MD 05/29/2020 1124 ID Date Data Source [id number] 05/25/2020 11:13:00 PM EST [facility] ([facility]) Name Value Range Interpretation Code Description Data Agnieszka rce(s) Supporting Document(s) Influenza A Amplification Laboratory test result Normal (applies to non- numeric results) [facility] ([facility]) Negative results do not preclude influen za or RSV virus infection and should not be used as the sole basis for treatment or other patient management decisions. Influenza B Amplification Laboratory test result Normal (applies to non- numeric results) [facility] ([facility]) Negative results do not preclude influen za or RSV virus infection and should not be used as the sole basis for treatment or other patient management decisions. RSV Amplification Laboratory test result Normal (applies to non-numeric results) [facility] ([facility]) Negative results do not preclude influen za or RSV virus infection and should not be used as the sole basis for treatment or other patient management decisions. Laboratory test finding (navigational concept) Laboratory test r esult Normal (applies to non-numeric results) [facility] ([facility]) A false negative result may occur if a s pecimen is improperly collected, transported or handled. False [...] pathogens. DISCLAIMER: Testing was performed using the [employer] SARS-CoV-2 test. This test was developed and its performance characteristics determined by [employer]. This test has not been FDA cleared [...] the authorization is terminated or revoked sooner. ID Date Data Source [id number] 05/25/2020 11:13:00 PM EST [facility] ([facility], ) Name Value Range Interpretation Code Description Data Agnieszka rce(s) Supporting Document(s) Influenza B Amplification Laboratory test result Normal (applies to non- numeric results) [facility] ([facility], ) Negative results do not preclude influen za or RSV virus infection and should not be used as the sole basis for treatment or other patient management decisions. Influenza A Amplification Laboratory test result Normal (applies to non- numeric results) [facility] ([facility], ) Negative results do not preclude influen za or RSV virus infection and should not be used as the sole basis for treatment or other patient management decisions. Laboratory test finding (navigational concept) Laboratory test r esult Normal (applies to non-numeric results) [facility] ([facility], ) A false negative result may occur if a s pecimen is improperly collected, transported or handled. False [...] pathogens. DISCLAIMER: Testing was performed using the [employer] SARS-CoV-2 test. This test was developed and its performance characteristics determined by [employer]. This test has not been FDA cleared [...] the authorization is terminated or revoked sooner. RSV Amplification Laboratory test result Normal (applies to non-numeric results) [facility] ([facility], ) Negative results do not preclude influen za or RSV virus infection and should not be used as the sole basis for treatment or other patient management decisions. ID Date Data Source [id number] 05/25/2020 11:13:00 PM EST [facility] Name Value Range Interpretation Code Description Data Agnieszka rce(s) Supporting Document(s) SARS coronavirus 2 RNA [Presence] in Res piratory specimen by ISSA with probe detection NEGATIVE [facility] This lab was ordered by [facility] a nd reported by [facility]. ID Date Data Source [id number] 05/25/2020 10:19:00 PM EST [facility] ([facility]) Name Value Range Interpretation Code Description Data Agnieszka rce(s) Supporting Document(s) Laboratory test finding (navigational concept) 45.0 % 3 8.0-51.0 Normal (applies to non-numeric results) [facility] ([facility]) Laboratory test finding (navigational concept) 98 mg/dL 7 0-105 Normal (applies to non-numeric results) [facility] ([facility]) Laboratory test finding (navigational concept) 143 meq/L 1 36-145 Normal (applies to non-numeric results) [facility] ([facility]) Laboratory test finding (navigational concept) 4.1 meq/L 3 .5-5.1 Normal (applies to non-numeric results) [facility] ([facility]) Laboratory test finding (navigational concept) 5.0 mg/dL 4 .5-5.3 Normal (applies to non-numeric results) [facility] ([facility]) Laboratory test finding (navigational concept) 106 meq/L 9 8-109 Normal (applies to non-numeric results) [facility] ([facility]) Laboratory test finding (navigational concept) 27.0 MM/L 2 3.0-27.0 Normal (applies to non-numeric results) [facility] ([facility]) Laboratory test finding (navigational concept) 13 mg/dL 8 -26 Normal (applies to non-numeric results) [facility] ([facility]) Laboratory test finding (navigational concept) 0.7 mg/dL 0 .6-1.3 Normal (applies to non-numeric results) [facility] ([facility]) ID Date Data Source [id number] 05/25/2020 09:57:00 PM EST [facility] ([facility]) Name Value Range Interpretation Code Description Data Agnieszka rce(s) Supporting Document(s) Glucose, Fasting 97 mg/dL 70-100 Normal (applies to non-numeric results) [facility] ([facility]) Blood Urea Nitrogen 13 mg/dL 7-18 Normal (applies to non-nume hailey results) [facility] ([facility]) Creatinine For GFR 0.83 mg/dL 0.55-1.30 Normal (applies to non -numeric results) [facility] ([facility]) Glomerular Filtration Rate Laboratory test result Normal (applies to non- numeric results) [facility] ([facility]) <content>Units are mL/min/1.73 m2</content>
<content></content>
<content>Chronic Kidney Disease Staging per NKF:</content>
<content></content>
<content>Stage I & II GFR >=60 Normal to Mildly Decreased</content>
<content>Stage III GFR 30- 59 Moderately Decreased</content>
<content>Stage IV GFR 15-29 Severely Decreased</content>
<content>Stage V GFR <15 Very Little GFR Left</content>
<content>ESRD GFR <15 on [employer]</content>
<content></content> Sodium Level 142 meq/L 136-145 Normal (applies to non-numeric res ults) [facility] ([facility]) Potassium Serum 4.2 meq/L 3.5-5.1 Normal (applies to non-numeric results) [facility] ([facility]) Chloride Level 110 meq/L 98-107 Above high normal [facility] ([facility]) Carbon Dioxide Level 27 meq/L 21-32 Normal (applies to non-num roxie results) [facility] ([facility]) Anion Gap 5 meq/L 8-16 Below low normal [facility] ( [facility] Calcium Level 9.3 mg/dL 8.5-10.1 Normal (applies to non-numeric re sults) [facility] ([facility]) ID Date Data Source [id number] 05/25/2020 09:57:00 PM EST [facility] ([facility]) Name Value Range Interpretation Code Description Data Agnieszka rce(s) Supporting Document(s) Red Blood Count 4.97 10 4.00-5.40 Normal (applies to non-numeric results) [facility] ([facility]) White Blood Count 8.9 10 4.0-10.0 Normal (applies to non-numeri c results) [facility] ([facility]) Hemoglobin 14.3 g/dL 12.0-15.5 Normal (applies to non-numeric resul ts) [facility] ([facility]) Hematocrit 44.6 % 36.0-47.0 Normal (applies to non-numeric resul ts) [facility] ([facility]) Mean Corpuscular Volume 89.7 fl 80.0-96.0 Normal ( applies to non-numeric results) [facility] ([facility]) Mean Corpuscular Hemoglobin 28.8 pg 27.0-33.0 Norm al (applies to non-numeric results) [facility] ([facility]) Mean Corpuscular HGB Conc 32.1 g/dL 32.0-36.5 Normal (applies to non-numeric results) [facility] ([facility]) Red Cell Distribution Width 13.0 % 11.5-14.5 Norm al (applies to non-numeric results) [facility] ([facility]) Platelet Count, Automated 358 10 150-450 Normal (applies to non-numeric results) [facility] ([facility]) Neutrophils % 51.3 % 36.0-66.0 Normal (applies to non-numeric re sults) [facility] ([facility]) Lymph % 33.4 % 24.0-44.0 Normal (applies to non-numeric resul ts) [facility] ([facility]) Eos % 6.5 % 0.0-3.0 Above high normal [facility] ([facility]) Moody % 7.8 % 2.0-8.0 Normal (applies to non-numeric resul ts) [facility] ([facility]) Immature Granulocyte % 0.3 % 0-3.0 Normal (applies to non-n umeric results) [facility] ([facility]) Baso % 0.7 % 0.0-1.0 Normal (applies to non-numeric resul ts) [facility] ([facility]) Nucleated Red Blood Cell % 0.0 % 0-0 Normal (applies to n on-numeric results) [facility] ([facility]) Neutrophils # 4.6 10 1.5-8.5 Normal (applies to non-numeric re sults) [facility] ([facility]) Lymph # 3.0 10 1.5-5.0 Normal (applies to non-numeric resul ts) [facility] ([facility]) Eos # 0.6 10 0.0-0.5 Above high normal [facility] ([facility]) Moody # 0.7 10 0.0-0.8 Normal (applies to non-numeric resul ts) [facility] ([facility]) Baso # 0.1 10 0.0-0.2 Normal (applies to non-numeric resul ts) [facility] ([facility]) ID Date Data Source [id number] 04/19/2020 04:17:00 PM EST [facility] ([facility], ) Name Value Range Interpretation Code Description Data Agnieszka rce(s) Supporting Document(s) Blood group antibody screen [Presence] in Serum or Alyssa sma Laboratory test result Normal (applies to non-numeric results) [facility] ([facility], ) Blood Type Laboratory test result Normal (applies to non-n umeric results) [facility] ([facility], ) ID Date Data Source [id number] 04/19/2020 04:17:00 PM EST [facility] ([facility]) Name Value Range Interpretation Code Description Data Agnieszka rce(s) Supporting Document(s) Blood Type Laboratory test result Normal (applies to non-n umeric results) [facility] ([facility]) AB Screen (Indirect Mekhi)Vis Laboratory test result Normal (applies to non- numeric results) [facility] ([facility]) ID Date Data Source [id number] 04/19/2020 10:15:00 AM EST [facility] ([facility], ) Name Value Range Interpretation Code Description Data Agnieszka rce(s) Supporting Document(s) Laboratory test finding (navigational concept) Laboratory test r esult Normal (applies to non-numeric results) [facility] A false negative result may occur if a s pecimen is improperly collected, transported or handled. False [...] pathogens. DISCLAIMER: Testing was performed using the [employer] SARS-CoV-2 test. This test was developed and its performance characteristics determined by [employer]. This test has not been FDA cleared [...] the authorization is terminated or revoked sooner. ID Date Data Source [id number] 04/19/2020 10:15:00 AM EST [facility] ([facility], ) Name Value Range Interpretation Code Description Data Agnieszka rce(s) Supporting Document(s) Coronavirus 2019 Nasopharygeal Laboratory test result [facility] ([facility], ) By: CHACHA Time: 1014 Laboratory test finding (navigational concept) Laboratory test r esult Normal (applies to non-numeric results) [facility] A false negative result may occur if a s pecimen is improperly collected, transported or handled. False [...] pathogens. DISCLAIMER: Testing was performed using the [employer] SARS-CoV-2 test. This test was developed and its performance characteristics determined by [employer]. This test has not been FDA cleared [...] the authorization is terminated or revoked sooner. ID Date Data Source [id number] 04/19/2020 10:15:00 AM EST MED[facility] ([facility]) Name Value Range Interpretation Code Description Data Agnieszka rce(s) Supporting Document(s) Laboratory test finding (navigational concept) Laboratory test r esult Normal (applies to non-numeric results) [facility] A false negative result may occur if a s pecimen is improperly collected, transported or handled. False [...] pathogens. DISCLAIMER: Testing was performed using the [employer] SARS-CoV-2 test. This test was developed and its performance characteristics determined by [facility]. This test has not been FDA cleared [...] the authorization is terminated or revoked sooner. ID Date Data Source [id number] 04/19/2020 10:15:00 AM EST JEAN Name Value Range Interpretation Code Description Data Agnieszka rce(s) Supporting Document(s) SARS coronavirus 2 RNA [Presence] in Res piratory specimen by ISSA with probe detection NEGATIVE [facility] This lab was ordered by [facility] a nd reported by [facility]. ID Date Data Source [id number] 04/14/2020 11:16:00 AM EST [facility] [address] [place] [address] PHONE: [phone] FAX: [phone] Name .................. : DIMPLE Massey Acct Number.................. : [id number] ROOM. ................. : Number ................... : [id number] Stay type ............. : O/P Discharge Date......... ... : 04/12/20 Admit Date ......... : 04/12/20 Admit Phys .................... : [facility] Date of ....... : 1985 Family Phys ................... : NONSTAFF Phone .................. : [phone] Age ................................ : 34 Film# .................. .:[id number] Sex ................................. : F Unsigned transcriptions are preliminary reports and do not represent a medical or legal document US BREAST RIGHT [id number] COMPLETE:04/12/20 20:00 ADB 3090 (TEST REASON: PAIN [...] By [place] M.D. , 04/14/20 11:16, [facility] Transcribe Initials: ROSEMARIE , Transcribe Date: 04/12/20 22:13, Dictation Date: Copy for: FAITH MCPHERSON via fax Copy for: [address] [place] [address] Page 1 of 1 Name Value Range Interpretation Code Description Data Agnieszka rce(s) Supporting Document(s) ID Date Data Source [id number] 04/14/2020 11:16:00 [place] [address] PHONE: [phone] FAX: [phone] Name .................. : DIMPLE Massey Acct Number.................. : [id number] ROOM. ................. : Number ................... : [id number] Stay type ............. : O/P Discharge Date......... ... : 04/12/20 Admit Date ......... : 04/12/20 Admit Phys .................... : FAITH SEGUNDO Date of ....... : 1985 Family Phys ................... : NONSTAFF Phone .................. : [phone] Age ................................ : 34 Film# .................. .:[id number] Sex ................................. : F Unsigned transcriptions are preliminary reports and do not represent a medical or legal document BREAST LEFT [id number] COMPLETE:04/12/20 20:00 ADB 3089 (TEST REASON: DRAINAGE [...] for: FAITH MCPHERSON via fax Copy for: [address] [place] [address] REC Page 1 of 1 Name Value Range Interpretation Code Description Data Agnieszka rce(s) Supporting Document(s) ID Date Data Source [id number] 04/12/2020 04:02:00 PM EST [facility] ([facility]) Name Value Range Interpretation Code Description Data Agnieszka rce(s) Supporting Document(s) Bacteria identified in Wound shallow by Aerobe culture Laborator y test result Normal (applies to non-numeric results) [facility] ([facility]) <content>FULL REPORT IN LAB NOTES (eCW a [...] ICR test is considered</content>
<content>CLIDAMYCIN SENSITIVE.</content>
<content></content> Procedure Social History Code Duration Value Status Description Data Source(s ) Smoking 07/31/2020 12:00:00 AM EDT Never Smoker completed Never S moker eCW1 ([facility]) Smoking 07/31/2020 12:00:00 AM EDT Never Smoker completed Never S moker eCW1 ([facility]) Smoking 07/31/2020 12:00:00 AM EDT Never Smoker completed Never S moker eCW1 ([facility]) Smoking 05/01/2020 12:00:00 AM EST Never Smoker completed Never S moker eCW1 ([facility]) Smoking 05/01/2020 12:00:00 AM EST Never Smoker completed Never S moker eCW1 ([facility]) Smoking 05/01/2020 12:00:00 AM EST Never Smoker completed Never S moker eCW1 ([facility]) Smoking 05/01/2020 12:00:00 AM EST Never Smoker completed Never S moker eCW1 ([facility]) Smoking 05/01/2020 12:00:00 AM EST Never Smoker completed Never S moker eCW1 ([facility]) Smoking 04/24/2020 12:00:00 AM EST Never Smoker completed Never S moker eCW1 ([facility]) Smoking 04/19/2020 12:00:00 AM EST Never Smoker completed Never S moker eCW1 ([facility]) Vital Signs ID Date Data Source UNK Name Value Range Interpretation Code Description Data Source(s) Body temperature 98.5 [degF] 98.5 [degF] [facility] ([facility]) Body height 66 [in_i] 66 [in_i] [facility] ([facility]) 5'6" Body weight 166.38 [lb_av] 166.38 [lb_av] MEDEN T ([facility]) Oxygen saturation in Arterial blood by Pulse oximetry 99 % 99 % [facility] ([facility]) [place] body weight 130 [lb_av] 130 [lb_av] MEDEN T ([facility]) Systolic blood pressure 128 mm[Hg] 128 mm[Hg] M EDENT ([facility]) Diastolic blood pressure 72 mm[Hg] 72 mm[Hg] [facility] ([facility]) Body mass index (BMI) [Ratio] 26.9 kg/m2 26.9 k g/m2 [facility] ([facility]) Heart rate 97 /min 97 /min [facility] ([facility]) Respiratory rate 14 /min 14 /min [facility] ( [facility] Respiratory rate 18 /min 18 /min [facility] ( [facility]) Systolic blood pressure 122 mm[Hg] 122 mm[Hg] M EDENT ([facility]) Diastolic blood pressure 72 mm[Hg] 72 mm[Hg] [facility] ([facility]) Respiratory rate 18 /min 18 /min [facility] ( [facility]) Body weight 167 [lb_av] 167 [lb_av] eCW1 ([facility]) Body weight 75.75 kg 75.75 kg eCW1 ([facility]) Body height 65 [in_i] 65 [in_i] eCW1 ([facility]) Body mass index (BMI) [Ratio] 27.79 kg/m2 27.79 kg/m2 eCW1 ([facility]) Heart rate 87 /min 87 /min eCW1 ([facility]) Body temperature 97.4 [degF] 97.4 [degF] eCW1 ( [facility]) Systolic blood pressure 130 mm[Hg] 130 mm[Hg] e CW1 ([facility]) Diastolic blood pressure 82 mm[Hg] 82 mm[Hg] eCW1 ([facility]) Systolic blood pressure 130 mm[Hg] 130 mm[Hg] M EDENT ([facility]) Diastolic blood pressure 80 mm[Hg] 80 mm[Hg] [facility] ([facility]) Body weight 168.00 [lb_av] 168.00 [lb_av] MEDEN T ([facility]) Body mass index (BMI) [Ratio] 27.1 kg/m2 27.1 k g/m2 [facility] ([facility]) Heart rate 87 /min 87 /min [facility] ([facility]) Respiratory rate 20 /min 20 /min [facility] ( [facility] Body temperature 99.9 [degF] 99.9 [degF] [facility] ([facility]) Oxygen saturation in Arterial blood by Pulse oximetry 98 % 98 % [facility] ([facility] [place] body weight 130 [lb_av] 130 [lb_av] MEDEN T ([facility]) Body height 66 [in_i] 66 [in_i] [facility] ([facility]) 5'6" Body weight 169.38 [lb_av] 169.38 [lb_av] MEDEN T ([facility]) Body mass index (BMI) [Ratio] 27.3 kg/m2 27.3 k g/m2 [facility] ([facility]) Heart rate 96 /min 96 /min [facility] ([facility] [place] body weight 130 [lb_av] 130 [lb_av] MEDEN T ([facility]) Systolic blood pressure 122 mm[Hg] 122 mm[Hg] M EDENT ([facility]) Respiratory rate 18 /min 18 /min [facility] ( [facility]) Diastolic blood pressure 72 mm[Hg] 72 mm[Hg] [facility] ([facility]) Body height 66 [in_i] 66 [in_i] [facility] ([facility]) 5'6" Body temperature 98.9 [degF] 98.9 [degF] [facility] ([facility]) Oxygen saturation in Arterial blood by Pulse oximetry 97 % 97 % [facility] ([facility] [place] body weight 130 [lb_av] 130 [lb_av] MEDEN T ([facility], ) Systolic blood pressure 128 mm[Hg] 128 mm[Hg] [facility] Diastolic blood pressure 68 mm[Hg] 68 mm[Hg] [facility] ([facility], ) Heart rate 84 /min 84 /min [facility] ([facility], ) Respiratory rate 16 /min 16 /min [facility] ( [facility], ) Body temperature 97.8 [degF] 97.8 [degF] [facility] ([facility], ) Body height 66 [in_i] 66 [in_i] [facility] ([facility], ) 5'6" Oxygen saturation in Arterial blood by Pulse oximetry 99 % 99 % [facility] ([facility]) Systolic blood pressure 114 mm[Hg] 114 mm[Hg] [facility] Diastolic blood pressure 72 mm[Hg] 72 mm[Hg] [facility] ([facility]) Body height 66 [in_i] 66 [in_i] [facility] ([facility]) 5'6" Body weight 166.38 [lb_av] 166.38 [lb_av] MEDEN T ([facility]) Body mass index (BMI) [Ratio] 26.9 kg/m2 26.9 k g/m2 [facility] ([facility]) Heart rate 104 /min 104 /min [facility] ([facility] [place] body weight 130 [lb_av] 130 [lb_av] MEDEN T ([facility]) Respiratory rate 18 /min 18 /min [facility] ( [facility]) Body temperature 99.2 [degF] 99.2 [degF] [facility] ([facility]) [place] body weight 130 [lb_av] 130 [lb_av] MEDEN T ([facility]) Systolic blood pressure 126 mm[Hg] 126 mm[Hg] M EDENT ([facility]) Diastolic blood pressure 74 mm[Hg] 74 mm[Hg] [facility] ([facility]) Heart rate 88 /min 88 /min [facility] ([facility]) Respiratory rate 16 /min 16 /min [facility] ( [facility]) Body height 66 [in_i] 66 [in_i] [facility] ([facility]) 5'6" Body weight 164.00 [lb_av] 164.00 [lb_av] [facility] Body mass index (BMI) [Ratio] 26.5 kg/m2 26.5 k g/m2 [facility] ([facility]) Body weight 74.390 kg 74.390 kg [facility] ([facility]) Body surface area Derived from formula 1.84 m2 1.84 m2 [facility] ([facility]) Respiratory rate 20 /min 20 /min eCW1 ([facility]) Body temperature 97.9 [degF] 97.9 [degF] eCW1 ( [facility]) Systolic blood pressure 120 mm[Hg] 120 mm[Hg] e CW1 ([facility]) Diastolic blood pressure 84 mm[Hg] 84 mm[Hg] eCW1 ([facility]) Body weight 163 [lb_av] 163 [lb_av] eCW1 ([facility]) Body weight 73.94 kg 73.94 kg eCW1 ([facility]) Body height 65 [in_i] 65 [in_i] W1 ([facility]) Body mass index (BMI) [Ratio] 27.12 kg/m2 27.12 kg/m2 [facility] ([facility]) Heart rate 97 /min 97 /min eCW1 ([facility]) Systolic blood pressure 124 mm[Hg] 124 mm[Hg] M EDENT ([facility]) Diastolic blood pressure 74 mm[Hg] 74 mm[Hg] [facility] ([facility]) Body weight 165.00 [lb_av] 165.00 [lb_av] MEDEN T ([facility]) Heart rate 106 /min 106 /min [facility] ([facility]) Oxygen saturation in Arterial blood by Pulse oximetry 98 % 98 % [facility] ([facility]) Body height 66 [in_i] 66 [in_i] [facility] ([facility]) 5'6" Body mass index (BMI) [Ratio] 26.6 kg/m2 26.6 k g/m2 [facility] ([facility]) Respiratory rate 18 /min 18 /min [facility] ( [facility]) Body temperature 99.3 [degF] 99.3 [degF] [facility] ([facility] [place] body weight 130 [lb_av] 130 [lb_av] MEDEN T ([facility]) Body weight 163 [lb_av] 163 [lb_av] eCW1 ([facility]) Body temperature 98.1 [degF] 98.1 [degF] eCW1 ( [facility]) Body weight 73.94 kg 73.94 kg eCW1 ([facility]) Systolic blood pressure 106 mm[Hg] 106 mm[Hg] e CW1 ([facility]) Diastolic blood pressure 78 mm[Hg] 78 mm[Hg] eCW1 ([facility]) Body height 65 [in_i] 65 [in_i] eCW1 ([facility]) Body mass index (BMI) [Ratio] 27.12 kg/m2 27.12 kg/m2 [facility] ([facility]) Heart rate 83 /min 83 /min eCW1 ([facility]) Respiratory rate 18 /min 18 /min eCW1 ([facility]) Body weight 166 [lb_av] 166 [lb_av] eCW1 ([facility]) Body weight 75.3 kg 75.3 kg eCW1 ([facility]) Body height 65 [in_i] 65 [in_i] eCW1 ([facility]) Body mass index (BMI) [Ratio] 27.62 kg/m2 27.62 kg/m2 eCW1 ([facility]) Heart rate 102 /min 102 /min eCW1 ([facility]) Respiratory rate 18 /min 18 /min eCW1 ([facility]) Body temperature 98.4 [degF] 98.4 [degF] eCW1 ( [facility]) Systolic blood pressure 108 mm[Hg] 108 mm[Hg] e CW1 ([facility]) Diastolic blood pressure 68 mm[Hg] 68 mm[Hg] eCW1 ([facility]) Body weight 166 [lb_av] 166 [lb_av] eCW1 ([facility]) Body weight 75.3 kg 75.3 kg eCW1 ([facility]) Body height 65 [in_i] 65 [in_i] eCW1 ([facility]) Body mass index (BMI) [Ratio] 27.62 kg/m2 27.62 kg/m2 eCW1 ([facility]) Heart rate 102 /min 102 /min eCW1 ([facility]) Respiratory rate 18 /min 18 /min eCW1 ([facility]) Body temperature 98.4 [degF] 98.4 [degF] eCW1 ( [facility]) Systolic blood pressure 108 mm[Hg] 108 mm[Hg] e CW1 ([facility]) Diastolic blood pressure 68 mm[Hg] 68 mm[Hg] eCW1 ([facility]) Body mass index (BMI) [Ratio] 26.3 kg/m2 26.3 k g/m2 [facility] ([facility]) Respiratory rate 18 /min 18 /min [facility] ( [facility]) Body temperature 99.8 [degF] 99.8 [degF] [facility] ([facility]) Oxygen saturation in Arterial blood by Pulse oximetry 121 % 121 % [facility] ([facility]) Heart rate 99 /min 99 /min [facility] ([facility]) Systolic blood pressure 138 mm[Hg] 138 mm[Hg] M EDENT ([facility]) Diastolic blood pressure 87 mm[Hg] 87 mm[Hg] [facility] ([facility]) Body height 66 [in_i] 66 [in_i] MEDENT ([facility]) 5'6" Body weight 163.00 [lb_av] 163.00 [lb_av] MEDEN T ([facility] [place] body weight 130 [lb_av] 130 [lb_av] MEDEN T ([facility]) Diastolic blood pressure 64 mm[Hg] 64 mm[Hg] [facility] ([facility]) Systolic blood pressure 122 mm[Hg] 122 mm[Hg] M EDENT ([facility]) Body weight 164.00 [lb_av] 164.00 [lb_av] MEDEN T ([facility] [place] body weight 130 [lb_av] 130 [lb_av] MEDEN T ([facility]) Body height 66 [in_i] 66 [in_i] MEDENT ([facility]) 5'6" Body mass index (BMI) [Ratio] 26.5 kg/m2 26.5 k g/m2 [facility] ([facility]) Heart rate 103 /min 103 /min [facility] ([facility]) Respiratory rate 18 /min 18 /min MED[facility] ( [facility] Body temperature 98.9 [degF] 98.9 [degF] [facility] ([facility]) Oxygen saturation in Arterial blood by Pulse oximetry 96 % 96 % [facility] ([facility]) Systolic blood pressure 112 mm[Hg] 112 mm[Hg] M EDENT ([facility]) Diastolic blood pressure 70 mm[Hg] 70 mm[Hg] [facility] ([facility]) Body height 66 [in_i] 66 [in_i] MEDENT ([facility]) 5'6" Body weight 166.38 [lb_av] 166.38 [lb_av] MEDEN T ([facility]) Body mass index (BMI) [Ratio] 26.9 kg/m2 26.9 k g/m2 [facility] ([facility]) Heart rate 99 /min 99 /min [facility] ([facility]) Respiratory rate 18 /min 18 /min MED[facility] ( [facility] Body temperature 99.0 [degF] 99.0 [degF] [facility] ([facility]) Oxygen saturation in Arterial blood by Pulse oximetry 99 % 99 % [facility] ([facility] [place] body weight 130 [lb_av] 130 [lb_av] MEDEN T ([facility]) Diastolic blood pressure 60 mm[Hg] 60 mm[Hg] [facility] ([facility], ) Body height 66 [in_i] 66 [in_i] [facility] ([facility]) 5'6" Body weight 162.00 [lb_av] 162.00 [lb_av] MEDEN T ([facility]) Systolic blood pressure 120 mm[Hg] 120 mm[Hg] M EDENT ([facility]) Body mass index (BMI) [Ratio] 26.1 kg/m2 26.1 k g/m2 [facility] ([facility]) [place] body weight 130 [lb_av] 130 [lb_av] MEDEN T ([facility]) Body weight 73.483 kg 73.483 kg [facility] ([facility]) Body surface area Derived from formula 1.83 m2 1.83 m2 [facility] ([facility]) Body weight 158.38 [lb_av] 158.38 [lb_av] MEDEN T ([facility]) Body height 66 [in_i] 66 [in_i] MEDENT ([facility]) 5'6" Heart rate 66 /min 66 /min [facility] ([facility]) Body temperature 99.1 [degF] 99.1 [degF] [facility] ([facility]) Oxygen saturation in Arterial blood by Pulse oximetry 97 % 97 % [facility] ([facility] [place] body weight 130 [lb_av] 130 [lb_av] ANJALI Smith ([facility]) Systolic blood pressure 114 mm[Hg] 114 mm[Hg] M DAPHNE ([facility]) Diastolic blood pressure 68 mm[Hg] 68 mm[Hg] [facility] ([facility]) Respiratory rate 18 /min 18 /min [facility] ( [facility] Body mass index (BMI) [Ratio] 25.6 kg/m2 25.6 k g/m2 [facility] ([facility])
--- OUTSIDE RECORDS SUMMARY | 2021-01-13 12:44 | CCD ---
Author Author [facility] Organization [facility] Address Unknown Phone Unavailable Care Team Providers Care Relay Checker Name Role Phone NON-STAFF, PHYSICIAN Unavailable Unavailable SonjaPamella ACCOUNTS SUPERVISOR Unavailable Unavailable Sonja, Pamella Ken ACCOUNTS SUPERVISOR Unavailable Unavailable Sonja, Pamella Jesus Manuel ACCOUNTS SUPERVISOR Unavailable Unavailable Gorin, Pamella Jesus Manuel ACCOUNTS SUPERVISOR Unavailable Unavailable Sonja, Pamella Jesus Manuel ACCOUNTS SUPERVISOR Unavailable Unavailable Sonja, Pamella Jesus Manuel ACCOUNTS SUPERVISOR Unavailable Unavailable Sonja, Pamella Jesus Manuel ACCOUNTS SUPERVISOR Unavailable Unavailable Gorin, Pamella Jesus Manuel ACCOUNTS SUPERVISOR Unavailable Unavailable Sonja, Pamella Jesus Manuel ACCOUNTS SUPERVISOR Unavailable Unavailable Sonja, Pamella Jesus Manuel ACCOUNTS SUPERVISOR Unavailable Unavailable Gorin, Pamella Jesus Manuel ACCOUNTS SUPERVISOR Unavailable Unavailable Sonja, Pamella Jesus Manuel ACCOUNTS SUPERVISOR Unavailable Unavailable Gorin, Pamella Jesus Manuel ACCOUNTS SUPERVISOR Unavailable Unavailable Sonja, Pamella Jesus Manuel ACCOUNTS SUPERVISOR Unavailable Unavailable Delaney LILLY Unavailable Unavailable Juju Lilly Unavailable Juuj Lilly Unavailable Wilfred'denice, A Ky PA Unavailable [...] CHELSEA DO Unavailable Unavailable Duvall, A Phyl ACCOUNTS SUPERVISOR-BC Unavailable Unavailable Duvall, A Phyl ACCOUNTS SUPERVISOR-BC Unavailable Unavailable Duvall, A Phyl ACCOUNTS SUPERVISOR-BC Unavailable Unavailable Duvall, A Phyl ACCOUNTS SUPERVISOR-BC Unavailable Unavailable Duvall, A Phyl ACCOUNTS SUPERVISOR-BC Unavailable Unavailable Duvall, A Phyl ACCOUNTS SUPERVISOR-BC Unavailable Unavailable Duvall, A Phyl ACCOUNTS SUPERVISOR-BC Unavailable Unavailable Duvall, A Phyl ACCOUNTS SUPERVISOR-BC Unavailable Unavailable Duvall, A Phyl ACCOUNTS SUPERVISOR-BC Unavailable Unavailable Duvall, A Phyl ACCOUNTS SUPERVISOR-BC Unavailable Unavailable Duvall, A Phyl ACCOUNTS SUPERVISOR-BC Unavailable Unavailable Duvall, A Phyl ACCOUNTS SUPERVISOR-BC Unavailable Unavailable Duvall, A Phyl ACCOUNTS SUPERVISOR-BC Unavailable Unavailable Duvall, A Phyl ACCOUNTS SUPERVISOR-BC Unavailable Unavailable Duvall, A Phyl ACCOUNTS SUPERVISOR-BC Unavailable Unavailable Duvall, A Phyl ACCOUNTS SUPERVISOR-BC Unavailable Unavailable Duvall, A Phyl ACCOUNTS SUPERVISOR-BC Unavailable Unavailable Duvall, A Phyl ACCOUNTS SUPERVISOR-BC Unavailable Unavailable Duvall, A Phyl ACCOUNTS SUPERVISOR-BC Unavailable Unavailable Duvall, A Phyl ACCOUNTS SUPERVISOR-BC Unavailable Unavailable Duvall, A Phyl ACCOUNTS SUPERVISOR-BC Unavailable Unavailable Duvall, A Phyl ACCOUNTS SUPERVISOR-BC Unavailable Unavailable Duvall, A Phyl ACCOUNTS SUPERVISOR-BC Unavailable Unavailable Duvall, A Phyl ACCOUNTS SUPERVISOR-BC Unavailable Unavailable Duvall, A Phyl ACCOUNTS SUPERVISOR-BC Unavailable Unavailable Duvall, A Phyl ACCOUNTS SUPERVISOR-BC Unavailable Unavailable Duvall, A Phyl ACCOUNTS SUPERVISOR-BC Unavailable Unavailable Dvuall, A Phyl ACCOUNTS SUPERVISOR-BC Unavailable Unavailable Duvall, A Phyl ACCOUNTS SUPERVISOR-BC Unavailable Unavailable Duvall, A Phyl ACCOUNTS SUPERVISOR-BC Unavailable Unavailable Duvall, A Phyl ACCOUNTS SUPERVISOR-BC Unavailable Unavailable Duvall, A Phyl ACCOUNTS SUPERVISOR-BC Unavailable Unavailable Aminata, Savana Unavailable Unavailable Aminata, [...] is protected by Article 27-F of the [facility] Public Health law. If you continue you may have access to information: Regarding HIV / AIDS; Provided by facilities licensed or operated by the [facility] Office of Mental Health; or Provided by the [facility] Office for People With Developmental Disabilities. If such information is present, then the following [facility] mandated warning applies: This information has [...] law may result in a fine or usp sentence or both. A general authorization for the release of medical or other information is NOT sufficient authorization for further disc losure. Family History Family Member Name Family Member Gender Family Member Status Date o f Status Description Data Source(s) Unknown Female Problem [facility] ([facility]) Unknown Male Problem [facility] Unknown Unknown Problem MED[facility] ([facility]) Encounters Encounter Providers Location Date Indications Data Source(s ) Unknown [address] [facility] [address] 01/03/2021 12:00:00 AM EDT eCW1 ([facility]) Unknown [address] [facility] [place] [address] 01/01/2021 12:00:00 AM EDT eCW1 ([facility]) Outpatient Attender: Ky RODRIGUEZ [facility] 10/31/2020 01:00:00 PM EDT MEDENT ([facility]) Outpatient Attender: Radha Duvall ACCOUNTS SUPERVISOR-BC Main Office 0 10/09/2020 11:30:00 AM EDT MEDENT ([facility]) Outpatient Attender: NERI BATES PA-C 08/30/2020 05:00:00 PM [facility] Outpatient Attender: NAUN ROLDAN 08/24/2020 01:00: 00 PM [facility] Outpatient Attender: Juju Lilly 08/24/2020 10:30:00 AM E [facility] Outpatient Attender: Juju Lilly 08/16/2020 04:30:00 PM E [facility] Outpatient Attender: Juju Lilly 08/09/2020 04:29:00 PM E [facility] Admission cancelled. Disregard status an d admitted date. Outpatient Attender: NAUN ROLDAN 08/09/2020 03:30: 00 PM [facility] Outpatient Attender: Juju Lilly 08/07/2020 02:00:00 PM E [facility] Outpatient Attender: Juju Lilly 08/02/2020 04:00:00 PM E [facility] Outpatient Attender: Juju Lilly 07/31/2020 06:00:00 PM E [facility] Outpatient [address] [facility] [address] 07/31/2020 12:00:00 AM EDT eCW1 ([facility]) Outpatient Attender: NAUN ROLDAN 07/27/2020 03:00: 00 PM [facility] Outpatient Attender: Juju Lilly 07/26/2020 05:00:00 PM E [facility] Outpatient Attender: Juju Lilly 07/17/2020 09:59:00 AM E [facility] Outpatient Attender: NAUN ROLDAN 07/13/2020 04:47: 00 PM [facility] Outpatient Attender: Juju LillyAttender: JUJU LILLY 07/10/2020 10:49:00 AM [facility] Outpatient Attender: Ky RODRIGUEZ [facility] 06/30/2020 01:10:00 PM EDT MEDENT ([facility]) Outpatient Attender: Savana Coates 06/27/2020 09:28:00 AM [facility] Outpatient Attender: Ky RODRIGUEZ [facility] 06/26/2020 11:00:00 AM EDT MEDENT ([facility]) Outpatient Attender: CHELSEA Kidd/[place]/Paulo/Reind l 06/12/2020 01:00:00 PM EDT MEDENT ([facility] Unknown [address] [facility], [facility] [address] 06/09/2020 12:00:00 AM EDT eCW1 ([facility]) Outpatient Attender: Ky RODRIGUEZ [facility] 05/25/2020 01:40:00 PM EST MEDENT ([facility]) Outpatient Attender: CHELSEA Kidd/[place]/Paulo/Reind l 05/15/2020 01:15:00 PM EST MEDENT ([facility]) ( [place]) [facility] Nurse Visit [address] [place] [address] 05/12/2020 12:00:00 AM EST eCW1 ([facility]) Outpatient [address] [facility], [facility] [address] 05/01/2020 12:00:00 AM EST eCW1 ([facility]) Outpatient Attender: Ky RODRIGUEZ [facility] 04/27/2020 01:30:00 PM EST MEDENT ([facility]) ( PO) [facility] Post Op [address] [place] [address] 04/24/2020 12:00:00 AM EST eCW1 ([facility]) Outpatient [address] [facility] [place] [address] 04/19/2020 12:00:00 AM EST eCW1 ([facility]) Unknown [address] [facility] [place] [address] 04/19/2020 12:00:00 AM EST eCW1 ([facility]) Unknown [address] [facility] [place] [address] 04/17/2020 12:00:00 AM EST eCW1 ([facility]) Unknown [address] [facility] [address] 04/13/2020 12:00:00 AM EST eCW1 ([facility]) Outpatient Attender: YK Chavessultant: PHYSICIAN NO N-STAFF 04/12/2020 04:52:00 PM EST - 04/12/2020 05:52:00 PM EST [facility] Outpatient Attender: Ky RODRIGUEZ [facility] 04/12/2020 02:30:00 PM EST MEDENT ([facility]) ([facility] [address] [place] [address] 02/25/2020 12:00:00 AM EST eCW1 ([facility]) Outpatient Attender: Ky RODRIGUEZ [facility] 02/18/2020 12:40:00 PM EST MEDENT ([facility]) Outpatient Attender: Ky RODRIGUEZ [facility] 01/31/2020 12:30:00 PM EST MEDENT ([facility]) Outpatient Attender: Jesus Manuel Barrera/Ivette/Paulo/Daniel nddelaney 01/04/2020 03:30:00 PM EDT MEDENT ([facility]) Outpatient Attender: Ky RODRIGUEZ [facility] 12/30/2019 01:00:00 PM EDT MEDENT ([facility]) Immunizations Vaccine Date Status Description Data Source(s) COVID-19 VACCINE Moderna 11/16/2020 12:00:00 AM EDT completed [place] Vaccine Series Complete: NOThis Data was Submitted to [facility] [employer]. 05/12/2020 10:27:00 AM EST completed e CW1 ([facility]) 05/12/2020 10:27:00 AM EST completed e CW1 ([facility]) 05/12/2020 10:27:00 AM EST completed e CW1 ([facility]) 05/12/2020 10:27:00 AM EST completed e CW1 ([facility]) 05/12/2020 10:27:00 AM EST completed e CW1 ([facility]) 05/12/2020 10:27:00 AM EST completed e CW1 ([facility]) 05/12/2020 10:27:00 AM EST completed e CW1 ([facility]) 02/25/2020 10:37:00 AM EST completed e CW1 ([facility]) 02/25/2020 10:37:00 AM EST completed e CW1 ([facility]) 02/25/2020 10:37:00 AM EST completed e CW1 ([facility]) 02/25/2020 10:37:00 AM EST completed e CW1 ([facility]) 02/25/2020 10:37:00 AM EST completed e CW1 ([facility]) 02/25/2020 10:37:00 AM EST completed e CW1 ([facility]) 02/25/2020 10:37:00 AM EST completed e CW1 ([facility]) 02/25/2020 10:37:00 AM EST completed e CW1 ([facility]) 02/25/2020 10:37:00 AM EST completed e CW1 ([facility]) 02/25/2020 10:37:00 AM EST completed e CW1 ([facility]) 02/25/2020 10:37:00 AM EST completed e CW1 ([facility]) 02/25/2020 10:37:00 AM EST completed e CW1 ([facility]) 02/25/2020 10:37:00 AM EST completed e CW1 ([facility]) New in 2011. IIV4 01/31/2020 01:00:00 PM EST completed MEDENT ([facility]) Medications Medication Brand Name Start Date Product Form Dose Route Admi nistrative Instructions Pharmacy Instructions Status Indications Reaction Description Data Source(s) Sulfamethoxazole 800 MG / Trimethoprim 160 MG Oral Tablet [B actrim] Bactrim DS 09/27/2020 12:00:00 AM EDT ORAL active MEDENT ([facility]) Sulfamethoxazole 800 MG / Trimethoprim 160 MG Oral Tablet [B actrim] Bactrim DS 06/26/2020 12:00:00 AM EDT ORAL completed MEDENT ([facility]) pantoprazole 40 MG Delayed Release Oral Tablet Pantoprazole Sodium 06/16/2020 12:00:00 AM EDT active M EDENT ([facility] ) Tretinoin 0.25 MG/ML Topical Cream Tretinoin 04/29/2020 12:00:00 AM EST active MEDENT ([facility]) Ibuprofen 800 MG Oral Tablet Ibuprofen 04/21/2020 12:00:00 AM EST ORAL active MEDENT ([facility]) Sulfamethoxazole 800 MG / Trimethoprim 160 MG Oral Tablet [B actrim] Bactrim DS 04/12/2020 12:00:00 AM EST ORAL completed MEDENT ([facility]) 24 HR Bupropion Hydrochloride 150 MG Extended Release Oral Tablet Bupropion Hydrochloride ER (XL) 02/18/2020 12:00:00 AM EST ORAL c ompleted MEDENT ([facility]) 24 HR venlafaxine 37.5 MG Extended Release Oral Capsule [Eff exor] Effexor XR 01/31/2020 12:00:00 AM EST ORAL completed MEDENT ([facility]) Sucralfate 100 MG/ML Oral Suspension [Carafate] Carafate 12/30/2019 12:00:00 AM EDT ORAL completed MEDENT ([facility]) 24 HR Amphetamine aspartate 5 MG / Amphe tamine Sulfate 5 MG / Dextroamphetamine saccharate 5 MG / Dextroamphetamine Sulfate 5 MG Extended Release Oral Capsule [Adderall] Adderall XR 12/30/2019 12:00:00 AM EDT ORAL active MEDENT ([facility]) pantoprazole 40 MG Delayed Release Oral Tablet [Protonix] Pr otonix 12/30/2019 12:00:00 AM EDT ORAL active M EDENT ([facility]) Insurance Providers Payer name Policy type / Coverage type Policy ID Covered libertarian ID Covered libertarian's relationship to arango Policy Arango Plan Information [facility] [id number] [facility] [id number] [facility] [id number] [place] [id number] [facility]/P [id number] 01 [id number] O UNAVAILABLE UNAVAILA BLE [facility] [id number] S [id number] [place] [id number] Commercial [id number] Family Dependent [id number] [place] [address] Commercial [id number] Family Dependent [id number] [facility] (2017) Health Maintenance Organization (HMO) [id number] Family Dependent [id number] [place] [address] Commercial [id number] Family Dependent [id number] [facility] (2017) Health Maintenance Organization (HMO) [id number] Family Dependent [id number] SELF PAY O UNAVAILABLE S UNAVAILA BLE SELF PAY ONLY [id number] SP [id number] [facility] [id number] [facility] [id number] [facility] [id number] [facility] [id number] [facility] [id number] Family Dependent [id number] Problems, Conditions, and Diagnoses Code Display Name Description Problem Type Effective Dates Data Source(s) F43.20 Adjustment disorder, unspecified ADJUSTMENT DISO RDER, UNSPECIFIED Diagnosis 08/30/2020 05:00:00 PM [facility] F41.9 Anxiety disorder, unspecified ANXIETY DISORDER, UNSPEC IFIED Diagnosis 08/30/2020 05:00:00 PM [facility] F31.9 Bipolar disorder, unspecified BIPOLAR DISORDER, UNSPEC IFIED Diagnosis 08/30/2020 05:00:00 PM [facility] F43.10 Post-traumatic stress disorder, unspecif ied POST-TRAUMATIC STRESS DISORDER, UNSPECIFIED Diagnosis 08/30/2020 05:00:00 PM [facility] G43.009 Migraine without aura, not intractable, without status migrainosus MIGRAINE W/O AURA, NOT INTRACTABLE, W/O STATUS AISHA Diagnosis 03:00:00 PM [facility] F32.9 Major depressive disorder, single episod e, unspecified MAJOR DEPRESSIVE DISORDER, SINGLE EPISODE, UNSPECI Diagnosis 07/26/2020 05:00:00 PM [facility] F41.1 Generalized anxiety disorder GENERALIZED ANXIETY DISOR LULU Diagnosis 07/26/2020 05:00:00 PM [facility] F39 Unspecified mood [affective] disorder UNSPECIFIE D MOOD [AFFECTIVE] DISORDER Diagnosis 07/13/2020 04:47:00 PM [facility] F31.30 Bipolar disorder, current ep isode depressed, mild or moderate severity, unspecified BIPOLAR DISORD, CRNT EPSD DEPRESS, MILD OR MOD SEV Diagnosis 06/27/2020 09:28:00 AM [facility] R928 Other abnormal and inconclusive findings on diagnostic imaging of breast Other abnormal and inconclusive findings on diagnostic imaging of breast Diagnosis 04/12/2020 04:52:00 PM [facility] N611 Abscess of the breast and nipple Abscess of the breast and nipple Diagnosis 04/12/2020 04:52:00 PM [facility] Z90.11 [id number] Absence of right breast Problem 04/19/2020 1 2:00:00 AM EST eCW1 ([facility]) J45.40 Uncomplicated moderate persistent asthma Uncomplicated moderate persistent asthma Problem 12/30/2019 12:00:00 AM [facility] ([facility]) K21.00 Gastro-esophageal reflux disease with es ophagitis Gastro-esophageal reflux disease with esophagitis Problem 12/30/2019 12:00:00 AM EDT M EDENT ([facility]) L40.9 Psoriasis Psoriasis Problem 12/30/2019 12:00:00 AM ED T MEDENT ([facility]) Surgeries/Procedures Procedure Description Date Indications Data Source(s) OFFICE OUTPATIENT VISIT 15 MINUTES 10/31/2020 12:00:00 AM EDT MEDENT ([facility]) OFFICE OUTPATIENT VISIT 25 MINUTES 10/09/2020 12:00:00 AM EDT MEDENT ([facility]) OFFICE OUTPATIENT VISIT 15 MINUTES 06/30/2020 12:00:00 AM EDT MEDENT ([facility]) OFFICE OUTPATIENT VISIT 15 MINUTES 06/26/2020 12:00:00 AM EDT MEDENT ([facility]) OFFICE OUTPATIENT VISIT 15 MINUTES 05/25/2020 12:00:00 AM EST MEDENT ([facility]) Injection, medroxyprogesterone acetate for contraceptive use , 150 mg 05/12/2020 12:00:00 AM EST eCW1 ([facility]) Injection, medroxyprogesterone acetate for contraceptive use , 150 mg 02/25/2020 12:00:00 AM EST eCW1 ([facility]) Results ID Date Data Source [id number] 10/09/2020 11:53:00 AM EDT MEDENT ([facility]) Name Value Range Interpretation Code Description Data Agnieszka rce(s) Supporting Document(s) Laboratory test finding (navigational concept) Laboratory test result MEDENT ([facility]) ID Date Data Source [id number] 10/09/2020 11:53:00 AM EDT MEDENT ([facility]) Name Value Range Interpretation Code Description Data Agnieszka rce(s) Supporting Document(s) Glucose [Mass/volume] in Serum or Plasma 124 mg/dL 65-99 Above high normal MEDENT ([facility]) Urea nitrogen [Mass/volume] in Serum or Plasma 10 mg/dL 6-20 MED[facility] ([facility]) Creatinine [Mass/volume] in Serum or Plasma 0.63 mg/dL 0.57-1.00 MED[facility] ([facility]) eGFR If NonAfricn Am 118 mL/min/1.73 [facility] ([facility]) Urea nitrogen/Creatinine [Mass Ratio] in Serum or Plasma 16 9 -23 MED[facility] ([facility]) eGFR If Africn Am 136 mL/min/1.73 [facility] ([facility]) [facility] currently reports eGFR in comp liance with the current recommendations of the National Kidney Foundation. [facility] will update reporting as new guidelines are published from the NKF-ASN Task force. Potassium [Moles/volume] in Serum or Plasma 4.2 mmol/L 3.5-5.2 MEDENT ([facility]) Sodium [Moles/volume] in Serum or Plasma 139 mmol/L 134-144 MED[facility] ([facility]) Calcium [Mass/volume] in Serum or Plasma 9.6 mg/dL 8.7-10.2 MEDENT ([facility]) Carbon dioxide, total [Moles/volume] in Serum or Plasma 23 mmol/L 20 -29 MED[facility] ([facility]) Chloride [Moles/volume] in Serum or Plasma 105 mmol/L 96-106 MED[facility] ([facility]) Albumin [Mass/volume] in Serum or Plasma 4.9 g/dL 3.8-4.8 Above high normal MEDENT ([facility]) Phosphate [Moles/volume] in Serum or Plasma 3.3 mg/dL 3.0-4.3 [facility] ([facility]) ID Date Data Source [id number] 10/09/2020 11:53:00 AM EDT [facility] ([facility]) Name Value Range Interpretation Code Description Data Agnieszka rce(s) Supporting Document(s) Laboratory test finding (navigational concept) Laboratory test result [facility] ([facility]) ID Date Data Source [id number] 10/09/2020 11:53:00 AM EDT [facility] ([facility]) Name Value Range Interpretation Code Description Data Agnieszka rce(s) Supporting Document(s) Laboratory test finding (navigational concept) Laboratory test result [facility] ([facility]) The QuantiFERON-TB Gold Plus result is d etermined by subtracting the Nil value from either TB antigen (Ag) tube. The mitogen tube serves as a control for the test. Mycobacterium tuberculosis stimulated ga mma interferon [Units/volume] corrected for background in Blood 0.00 IU/ml MED[facility] ([facility]) Laboratory test finding (navigational concept) Laboratory test result MEDENT ([facility]) QuantiFERON TB2 Ag Value 0.00 IU/ml MEDE NT ([facility]) Laboratory test finding (navigational concept) 0.00 IU/ml MEDENT ([facility]) Laboratory test finding (navigational concept) Laboratory test result MEDENT ([facility]) The specimen received for QuantiFERON te sting was incubated by the ordering institution. Specific procedures outlined in our Directory of Services and in the package insert for the QuantiFERON Gold (In Tube) test must be followed to enabl e for proper stimulation of cells for the production of interferon gamma. Chemiluminescence immunoassay methodology ID Date Data Source [id number] 10/09/2020 11:53:00 AM EDT [facility] ([facility]) Name Value Range Interpretation Code Description Data Agnieszka rce(s) Supporting Document(s) Protein [Mass/volume] in Serum or Plasma 7.4 g/dL 6.0-8.5 MED[facility] ([facility]) Bilirubin.total [Mass/volume] in Serum or Plasma 0.2 mg/dL 0.0-1.2 [facility] ([facility]) Bilirubin.conjugated [Mass/volume] in Serum or Plasma 0.08 mg/dL 0.00 -0.40 MED[facility] ([facility]) Alkaline phosphatase [Enzymatic activity/volume] in Serum or Plasma 82 IU/L 48-121 [facility] ([facility]) Alanine aminotransferase [Enzymatic activity/volume] in Seru m or Plasma 57 IU/L 0-32 Above high normal [facility] ([facility]) Aspartate aminotransferase [Enzymatic activity/volume] in Serum or Plasma 34 IU/L 0-40 [facility] ([facility]) ID Date Data Source [id number] 10/09/2020 11:53:00 AM EDT [facility] ([facility]) Name Value Range Interpretation Code Description Data Agnieszka rce(s) Supporting Document(s) Hepatitis A virus IgM Ab [Units/volume] in Serum by Im munoassay Laboratory test result [facility] ([facility]) Hepatitis B virus core Ab [Presence] in Serum or Plasm a by Immunoassay Laboratory test result [facility] ([facility] Practitioners) Hepatitis A virus Ab [Presence] in Serum by Immunoassay Labo ratory test result Abnormal (applies to non-numeric results) [facility] ([facility]) Hepatitis B virus core Ab [Presence] in Serum or Plasm a by Immunoassay Laboratory test result [facility] ([facility]) Non Reactive: Inconsistent with immunity , less than 10 mIU/mL Reactive: Consistent with immunity, greater than 9.9 mIU/mL ID Date Data Source [id number] 10/09/2020 11:53:00 AM EDT [facility] ([facility]) Name Value Range Interpretation Code Description Data Agnieszka rce(s) Supporting Document(s) Leukocytes [#/volume] in Blood by Automated count 8.7 x10E3/uL 3.4-10 .8 [facility] ([facility]) Erythrocytes [#/volume] in Blood by Automated count 4.89 x10E6/uL 3.7 7-5.28 [facility] ([facility]) Hemoglobin [Mass/volume] in Blood 14.3 g/dL 11.1-15.9 [facility] ([facility]) Hematocrit [Volume Fraction] of Blood by Automated count 43.6 % 3 4.0-46.6 [facility] ([facility]) Erythrocyte mean corpuscular volume [Entitic volume] by Auto mated count 89 fL 79-97 [facility] ([facility]) Erythrocyte distribution width [Ratio] by Automated count 12.8 % 11.7-15.4 [facility] ([facility]) Erythrocyte mean corpuscular hemoglobin [Entitic mass] by Automated count 29.2 pg 26.6-33.0 [facility] ([facility]) Erythrocyte mean corpuscular hemoglobin concentration [Mass/volume] by Automated count 32.8 g/dL 31.5-35.7 [facility] ([facility]) Neutrophils/100 leukocytes in Blood by Automated count 59 % [facility] ([facility]) Platelets [#/volume] in Blood by Automated count 416 x10E3/uL 150-450 [facility] ([facility]) Lymphocytes/100 leukocytes in Blood by Automated count 28 % [facility] ([facility] Eosinophils/100 leukocytes in Blood by Automated count 4 % [facility] ([facility]) Monocytes/100 leukocytes in Blood by Automated count 8 % [facility] ([facility]) Immature cells [#/volume] in Blood Laboratory test result [facility] ([facility]) Basophils/100 leukocytes in Blood by Automated count 1 % [facility] ([facility]) Neutrophils [#/volume] in Blood by Automated count 5.2 x10E3/uL 1.4-7 .0 [facility] ([facility]) Monocytes [#/volume] in Blood 0.7 x10E3/uL 0.1-0.9 [facility] ([facility]) Lymphocytes [#/volume] in Blood 2.4 x10E3/uL 0.7-3.1 [facility] ([facility]) Basophils [#/volume] in Blood by Automated count 0.1 x10E3/uL 0.0-0.2 [facility] ([facility]) Eosinophils [#/volume] in Blood by Automated count 0.3 x10E3/uL 0.0-0 .4 [facility] ([facility]) Immature granulocytes [#/volume] in Blood by Automated count 0.0 x10E3/uL 0.0-0.1 [facility] ([facility]) Immature granulocytes/100 leukocytes in Blood by Automated count 0 % [facility] ([facility]) Nucleated erythrocytes/100 leukocytes [Ratio] in Blood by Automated count Laboratory test result [facility] ([facility]) Morphology [Interpretation] in Blood Narrative Laboratory test result [facility] ([facility]) ID Date Data Source [id number] 09/21/2020 07:12:00 AM EDT [facility] ([facility]) Name Value Range Interpretation Code Description Data Agnieszka rce(s) Supporting Document(s) Laboratory test finding (navigational concept) Laboratory test result [facility] ([facility]) Will treat for 14 days with Bactrim DS ID Date Data Source [id number] 09/21/2020 07:12:00 AM EDT [facility] ([facility]) Name Value Range Interpretation Code Description Data Agnieszka rce(s) Supporting Document(s) Bacteria identified in Unspecified specimen by Culture Laborator y test result Abnormal (applies to non-numeric results) [facility] ([facility]) Will treat for 14 days with Bactrim DS Bacteria identified in Unspecified specimen by Aerobe culture Laboratory test result Abnormal (applies to non-numeric results) [facility] ([facility]) Will treat for 14 days with Bactrim DS Bacteria identified in Unspecified specimen by Culture Laborator y test result [facility] ([facility]) Will treat for 14 days with Bactrim DS Other Antibiotic [Susceptibility] Laboratory test result [facility] ([facility]) Will treat for 14 days with Bactrim DS ID Date Data Source [id number] 09/20/2020 05:33:00 PM EDT [facility] ([facility]) Name Value Range Interpretation Code Description Data Agnieszka rce(s) Supporting Document(s) Bacteria identified in Unspecified specimen by Aerobe culture Laboratory test result [facility] ([facility]) ID Date Data Source [id number] 06/28/2020 10:43:00 PM EDT [facility] ([facility]) Name Value Range Interpretation Code Description Data Agnieszka rce(s) Supporting Document(s) Gram Stain Laboratory test result Normal (applies to non-n umeric results) [facility] ([facility]) FEW WBCS MODERATE RBCS FEW GRAM POSITIVE COCCI IN CLUSTERS Wound Culture Laboratory test result Normal (applies t o non-numeric results) [facility] ([facility]) <content>FULL REPORT IN LAB NOTES (eCW [...]
<content>CLIDAMYCIN SENSITIVE.</content>
<content></content> ID Date Data Source [id number] 05/26/2020 02:53:00 AM EST [facility] ([facility], ) Name Value Range Interpretation Code Description Data Agnieszka rce(s) Supporting Document(s) Surgical pathology study Laboratory [facility]) FINAL DIAGNOSIS Esophagus, biopsy: Squamous mucosa showing [...] MD 05/29/2020 1124 ID Date Data Source [id number] 05/25/2020 11:13:00 PM EST [facility] ([facility]) Name Value Range Interpretation Code Description Data Agnieszka rce(s) Supporting Document(s) Influenza A Amplification Laboratory test result Normal (applies to non- numeric results) [facility] ([facility]) Negative results do not preclude influen za or RSV virus infection and should not be used as the sole basis for treatment or other patient management decisions. Influenza B Amplification Laboratory test result Normal (applies to non- numeric results) [facility] ([facility]) Negative results do not preclude influen za or RSV virus infection and should not be used as the sole basis for treatment or other patient management decisions. RSV Amplification Laboratory test result Normal (applies to non-numeric results) [facility] ([facility]) Negative results do not preclude influen za or RSV virus infection and should not be used as the sole basis for treatment or other patient management decisions. Laboratory test finding (navigational concept) Laboratory test r esult Normal (applies to non-numeric results) [facility] ([facility]) A false negative result may occur if [...] pathogens. DISCLAIMER: Testing was performed using the [employer] SARS-CoV-2 test. This test was developed and its performance characteristics determined by [employer]. This test has not been FDA cleared [...] or revoked sooner. ID Date Data Source [id number] 05/25/2020 11:13:00 PM EST [facility] ([facility], ) Name Value Range Interpretation Code Description Data Agnieszka rce(s) Supporting Document(s) Influenza B Amplification Laboratory test result Normal (applies to non- numeric results) [facility] ([facility], ) Negative results do not preclude influen za or RSV virus infection and should not be used as the sole basis for treatment or other patient management decisions. Influenza A Amplification Laboratory test result Normal (applies to non- numeric results) [facility] ([facility], ) Negative results do not preclude influen za or RSV virus infection and should not be used as the sole basis for treatment or other patient management decisions. Laboratory test finding (navigational concept) Laboratory test r esult Normal (applies to non-numeric results) [facility] ([facility], ) A false negative result may [...] pathogens. DISCLAIMER: Testing was performed using the [employer] SARS-CoV-2 test. This test was developed and its performance characteristics determined by [employer]. This test has not been FDA cleared [...] test result Normal (applies to non-numeric results) [facility] ([facility], ) Negative results do not preclude influen za or RSV virus infection and should not be used as the sole basis for treatment or other patient management decisions. ID Date Data Source [id number] 05/25/2020 11:13:00 PM EST [facility] Name Value Range Interpretation Code Description Data Agnieszka rce(s) Supporting Document(s) SARS coronavirus 2 RNA [Presence] in Res piratory specimen by ISSA with probe detection NEGATIVE [facility] This lab was ordered by [facility] a nd reported by [facility]. ID Date Data Source [id number] 05/25/2020 10:19:00 PM EST [facility] ([facility]) Name Value Range Interpretation Code Description Data Agnieszka rce(s) Supporting Document(s) Laboratory test finding (navigational concept) 45.0 % 3 8.0-51.0 Normal (applies to non-numeric results) [facility] ([facility]) Laboratory test finding (navigational concept) 98 mg/dL 7 0-105 Normal (applies to non-numeric results) [facility] ([facility]) Laboratory test finding (navigational concept) 143 meq/L 1 36-145 Normal (applies to non-numeric results) [facility] ([facility]) Laboratory test finding (navigational concept) 4.1 meq/L 3 .5-5.1 Normal (applies to non-numeric results) [facility] ([facility]) Laboratory test finding (navigational concept) 5.0 mg/dL 4 .5-5.3 Normal (applies to non-numeric results) [facility] ([facility]) Laboratory test finding (navigational concept) 106 meq/L 9 8-109 Normal (applies to non-numeric results) [facility] ([facility]) Laboratory test finding (navigational concept) 27.0 MM/L 2 3.0-27.0 Normal (applies to non-numeric results) [facility] ([facility]) Laboratory test finding (navigational concept) 13 mg/dL 8 -26 Normal (applies to non-numeric results) [facility] ([facility]) Laboratory test finding (navigational concept) 0.7 mg/dL 0 .6-1.3 Normal (applies to non-numeric results) [facility] ([facility]) ID Date Data Source [id number] 05/25/2020 09:57:00 PM EST [facility] ([facility]) Name Value Range Interpretation Code Description Data Agnieszka rce(s) Supporting Document(s) Glucose, Fasting 97 mg/dL 70-100 Normal (applies to non-numeric results) [facility] ([facility]) Blood Urea Nitrogen 13 mg/dL 7-18 Normal (applies to non-nume hailey results) [facility] ([facility]) Creatinine For GFR 0.83 mg/dL 0.55-1.30 Normal (applies to non -numeric results) [facility] ([facility]) Glomerular Filtration Rate Laboratory test result Normal (applies to non- numeric results) [facility] ([facility]) <content>Units are mL/min/1.73 m2</content>
<content></content>
<content>Chronic Kidney Disease Staging per NKF:</content>
<content></content>
<content>Stage I & II GFR >=60 Normal to Mildly Decreased</content>
<content>Stage III GFR 30- 59 Moderately Decreased</content>
<content>Stage IV GFR 15-29 Severely Decreased</content>
<content>Stage V GFR <15 Very Little GFR Left</content>
<content>ESRD GFR <15 on DIKE SUPERVISOR</content>
<content></content> Sodium Level 142 meq/L 136-145 Normal (applies to non-numeric res ults) [facility] ([facility]) Potassium Serum 4.2 meq/L 3.5-5.1 Normal (applies to non-numeric results) [facility] ([facility]) Chloride Level 110 meq/L 98-107 Above high normal [facility] ([facility]) Carbon Dioxide Level 27 meq/L 21-32 Normal (applies to non-num roxie results) [facility] ([facility]) Anion Gap 5 meq/L 8-16 Below low normal [facility] ( [facility]) Calcium Level 9.3 mg/dL 8.5-10.1 Normal (applies to non-numeric re sults) [facility] ([facility]) ID Date Data Source [id number] 05/25/2020 09:57:00 PM EST [facility] ([facility]) Name Value Range Interpretation Code Description Data Agnieszka rce(s) Supporting Document(s) Red Blood Count 4.97 10 4.00-5.40 Normal (applies to non-numeric results) [facility] ([facility]) White Blood Count 8.9 10 4.0-10.0 Normal (applies to non-numeri c results) [facility] ([facility]) Hemoglobin 14.3 g/dL 12.0-15.5 Normal (applies to non-numeric resul ts) [facility] ([facility]) Hematocrit 44.6 % 36.0-47.0 Normal (applies to non-numeric resul ts) [facility] ([facility]) Mean Corpuscular Volume 89.7 fl 80.0-96.0 Normal ( applies to non-numeric results) [facility] ([facility]) Mean Corpuscular Hemoglobin 28.8 pg 27.0-33.0 Norm al (applies to non-numeric results) [facility] ([facility]) Mean Corpuscular HGB Conc 32.1 g/dL 32.0-36.5 Normal (applies to non-numeric results) [facility] ([facility]) Red Cell Distribution Width 13.0 % 11.5-14.5 Norm al (applies to non-numeric results) [facility] ([facility]) Platelet Count, Automated 358 10 150-450 Normal (applies to non-numeric results) [facility] ([facility]) Neutrophils % 51.3 % 36.0-66.0 Normal (applies to non-numeric re sults) [facility] ([facility]) Lymph % 33.4 % 24.0-44.0 Normal (applies to non-numeric resul ts) [facility] ([facility]) Eos % 6.5 % 0.0-3.0 Above high normal [facility] ([facility]) Calloway % 7.8 % 2.0-8.0 Normal (applies to non-numeric resul ts) [facility] ([facility]) Immature Granulocyte % 0.3 % 0-3.0 Normal (applies to non-n umeric results) [facility] ([facility]) Baso % 0.7 % 0.0-1.0 Normal (applies to non-numeric resul ts) [facility] ([facility]) Nucleated Red Blood Cell % 0.0 % 0-0 Normal (applies to n on-numeric results) [facility] ([facility]) Neutrophils # 4.6 10 1.5-8.5 Normal (applies to non-numeric re sults) [facility] ([facility]) Lymph # 3.0 10 1.5-5.0 Normal (applies to non-numeric resul ts) [facility] ([facility]) Eos # 0.6 10 0.0-0.5 Above high normal [facility] ([facility]) Calloway # 0.7 10 0.0-0.8 Normal (applies to non-numeric resul ts) [facility] ([facility]) Baso # 0.1 10 0.0-0.2 Normal (applies to non-numeric resul ts) [facility] ([facility]) ID Date Data Source [id number] 04/19/2020 04:17:00 PM EST [facility] ([facility], ) Name Value Range Interpretation Code Description Data Agnieszka rce(s) Supporting Document(s) Blood group antibody screen [Presence] in Serum or Alyssa sma Laboratory test result Normal (applies to non-numeric results) [facility] ([facility], ) Blood Type Laboratory test result Normal (applies to non-n umeric results) [facility] ([facility], ) ID Date Data Source [id number] 04/19/2020 04:17:00 PM EST [facility] ([facility]) Name Value Range Interpretation Code Description Data Agnieszka rce(s) Supporting Document(s) Blood Type Laboratory test result Normal (applies to non-n umeric results) [facility] ([facility]) AB Screen (Indirect Mekhi)Vis Laboratory test result Normal (applies to non- numeric results) [facility] ([facility]) ID Date Data Source [id number] 04/19/2020 10:15:00 AM EST [facility] ([facility], ) Name Value Range Interpretation Code Description Data Agnieszka rce(s) Supporting Document(s) Laboratory test finding (navigational concept) Laboratory test r esult Normal (applies to non-numeric results) [facility] A false negative result may occur [...] pathogens. DISCLAIMER: Testing was performed using the [employer] SARS-CoV-2 test. This test was developed and its performance characteristics determined by [employer]. This test has not been FDA cleared [...] or revoked sooner. ID Date Data Source [id number] 04/19/2020 10:15:00 AM EST [facility] ([facility], ) Name Value Range Interpretation Code Description Data Agnieszka rce(s) Supporting Document(s) Coronavirus 2019 Nasopharygeal Laboratory test result [facility] ([facility], ) By: CHACHA Time: 1014 Laboratory test finding (navigational concept) Laboratory test r esult Normal (applies to non-numeric results) [facility] A false negative result may occur [...] pathogens. DISCLAIMER: Testing was performed using the [employer] SARS-CoV-2 test. This test was developed and its performance characteristics determined by [employer]. This test has not been FDA cleared [...] or revoked sooner. ID Date Data Source [id number] 04/19/2020 10:15:00 AM EST [facility] ([facility]) Name Value Range Interpretation Code Description Data Agnieszka rce(s) Supporting Document(s) Laboratory test finding (navigational concept) Laboratory test r esult Normal (applies to non-numeric results) [facility] A false negative result may occur [...] pathogens. DISCLAIMER: Testing was performed using the [employer] SARS-CoV-2 test. This test was developed and its performance characteristics determined by [employer]. This test has not been FDA cleared [...] or revoked sooner. ID Date Data Source [id number] 04/19/2020 10:15:00 AM EST [facility] Name Value Range Interpretation Code Description Data Agnieszka rce(s) Supporting Document(s) SARS coronavirus 2 RNA [Presence] in Res piratory specimen by ISSA with probe detection NEGATIVE [facility] This lab was ordered by [facility] a nd reported by [facility]. ID Date Data Source [id number] 04/14/2020 11:16:00 AM EST [facility] [address] [place] [address] PHONE: [phone] FAX: [phone] Name .................. : DIMPLE Massey Acct Number.................. : [id number] ROOM. ................. : Number ................... : [id number] Stay type ............. : O/P Discharge Date......... ... : 04/12/20 Admit Date ......... : 04/12/20 Admit Phys .................... : [facility] Date of ....... : 1985 Family Phys ................... : NONSTAFF Phone .................. : [phone] Age ................................ : 34 Film# .................. .:[id number] Sex ................................. : F Unsigned transcriptions are preliminary reports and do not represent a medical or legal document US BREAST RIGHT [id number] COMPLETE:04/12/20 20:00 ADB 3090 (TEST REASON: PAIN [...] By Silver Hawk M.D. , 04/14/20 11:16, [facility] Transcribe Initials: ROSEMARIE , Transcribe Date: 04/12/20 22:13, Dictation Date: Copy for: FAITH MCPHERSON via fax Copy for: [address] [place] [address] Page 1 of 1 Name Value Range Interpretation Code Description Data Agnieszka rce(s) Supporting Document(s) ID Date Data Source [id number] 04/14/2020 11:16:00 [place] [address] PHONE: [phone] FAX: [phone] Name .................. : DIMPLE Massey Acct Number.................. : [id number] ROOM. ................. : Number ................... : [id number] Stay type ............. : O/P Discharge Date......... ... : 04/12/20 Admit Date ......... : 04/12/20 Admit Phys .................... : FAITH SEGUNDO Date of ....... : 1985 Family Phys ................... : NONSTAFF Phone .................. : [phone] Age ................................ : 34 Film# .................. .:[id number] Sex ................................. : F Unsigned transcriptions are preliminary reports and do not represent a medical or legal document BREAST LEFT [id number] COMPLETE:04/12/20 20:00 ADB 3089 (TEST REASON: DRAINAGE [...] for: FAITH MCPHERSON via fax Copy for: [address] [place] [address] REC Page 1 of 1 Name Value Range Interpretation Code Description Data Agnieszka rce(s) Supporting Document(s) ID Date Data Source [id number] 04/12/2020 04:02:00 PM EST [facility] ([facility]) Name Value Range Interpretation Code Description Data Agnieszka rce(s) Supporting Document(s) Bacteria identified in Wound shallow by Aerobe culture Laborator y test result Normal (applies to non-numeric results) [facility] ([facility]) <content>FULL REPORT IN LAB NOTES (eCW [...] Never Smoker completed Never S moker [facility] ([facility]) Smoking 07/31/2020 12:00:00 AM EDT Never Smoker completed Never S moker [facility] ([facility]) Smoking 07/31/2020 12:00:00 AM EDT Never Smoker completed Never S moker [facility] ([facility]) Smoking 05/01/2020 12:00:00 AM EST Never Smoker completed Never S moker [facility]1 ([facility]) Smoking 05/01/2020 12:00:00 AM EST Never Smoker completed Never S moker [facility] ([facility]) Smoking 05/01/2020 12:00:00 AM EST Never Smoker completed Never S moker [facility]1 ([facility]) Smoking 05/01/2020 12:00:00 AM EST Never Smoker completed Never S moker [facility]1 ([facility]) Smoking 05/01/2020 12:00:00 AM EST Never Smoker completed Never S moker [facility]1 ([facility]) Smoking 04/24/2020 12:00:00 AM EST Never Smoker completed Never S moker [facility]1 ([facility]) Smoking 04/19/2020 12:00:00 AM EST Never Smoker completed Never S moker [facility]CW1 ([facility]) Vital Signs ID Date Data Source [id number] Name Value Range Interpretation Code Description Data Source(s) Body height 66 [in_i] 66 [in_i] MEDENT ([facility]) 5'6" Body weight 166.38 [lb_av] 166.38 [lb_av] MEDEN T ([facility]) Body temperature 98.5 [degF] 98.5 [degF] [facility] Oxygen saturation in Arterial blood by Pulse oximetry 99 % 99 % [facility] ([facility]) [facility] body weight 130 [lb_av] 130 [lb_av] MEDEN T ([facility]) Systolic blood pressure 128 mm[Hg] 128 mm[Hg] M EDENT ([facility]) Diastolic blood pressure 72 mm[Hg] 72 mm[Hg] [facility] ([facility]) Body mass index (BMI) [Ratio] 26.9 kg/m2 26.9 k g/m2 [facility] ([facility]) Heart rate 97 /min 97 /min [facility] ([facility]) Respiratory rate 14 /min 14 /min [facility] ( [facility]) Respiratory rate 18 /min 18 /min MEDENT ( [facility]) Systolic blood pressure 122 mm[Hg] 122 mm[Hg] M EDENT ([facility]) Diastolic blood pressure 72 mm[Hg] 72 mm[Hg] MEDENT ([facility]) Respiratory rate 18 /min 18 /min MEDENT ( [facility]) Body weight 167 [lb_av] 167 [lb_av] eCW1 ([facility]) Body weight 75.75 kg 75.75 kg eCW1 ([facility], [facility]) Body height 65 [in_i] 65 [in_i] eCW1 ([facility], [facility]) Body mass index (BMI) [Ratio] 27.79 kg/m2 27.79 kg/m2 eCW1 ([facility]) Heart rate 87 /min 87 /min eCW1 ([facility]) Body temperature 97.4 [degF] 97.4 [degF] eCW1 ( [facility]) Systolic blood pressure 130 mm[Hg] 130 mm[Hg] e CW1 ([facility]) Diastolic blood pressure 82 mm[Hg] 82 mm[Hg] eCW1 ([facility]) Body temperature 99.9 [degF] 99.9 [degF] MEDENT ([facility]) Body weight 168.00 [lb_av] 168.00 [lb_av] MEDEN T ([facility]) Body mass index (BMI) [Ratio] 27.1 kg/m2 27.1 k g/m2 [facility] ([facility]) Heart rate 87 /min 87 /min [facility] ([facility]) Respiratory rate 20 /min 20 /min [facility] ( [facility]) Systolic blood pressure 130 mm[Hg] 130 mm[Hg] M EDENT ([facility]) Oxygen saturation in Arterial blood by Pulse oximetry 98 % 98 % [facility] ([facility]) [facility] body weight 130 [lb_av] 130 [lb_av] MEDEN T ([facility]) Diastolic blood pressure 80 mm[Hg] 80 mm[Hg] [facility] ([facility]) Body height 66 [in_i] 66 [in_i] MEDENT ([facility]) 5'6" Systolic blood pressure 122 mm[Hg] 122 mm[Hg] M EDENT ([facility]) Body weight 169.38 [lb_av] 169.38 [lb_av] MEDEN T ([facility]) Body mass index (BMI) [Ratio] 27.3 kg/m2 27.3 k g/m2 [facility] ([facility]) Respiratory rate 18 /min 18 /min [facility] ( [facility]) [facility] body weight 130 [lb_av] 130 [lb_av] MEDEN T ([facility]) Diastolic blood pressure 72 mm[Hg] 72 mm[Hg] [facility] ([facility]) Body height 66 [in_i] 66 [in_i] MEDENT ([facility]) 5'6" Heart rate 96 /min 96 /min [facility] ([facility]) Body temperature 98.9 [degF] 98.9 [degF] [facility] ([facility]) Oxygen saturation in Arterial blood by Pulse oximetry 97 % 97 % [facility] ([facility]) [facility] body weight 130 [lb_av] 130 [lb_av] MEDEN T ([facility], ) Systolic blood pressure 128 mm[Hg] 128 mm[facility]Hg] [facility] Diastolic blood pressure 68 mm[Hg] 68 mm[Hg] MEDENT ([facility], ) Heart rate 84 /min 84 /min [facility], ) Respiratory rate 16 /min 16 /min [facility] ( [facility] ) Body temperature 97.8 [degF] 97.8 [degF] [facility] Body height 66 [in_i] 66 [in_i] [facility] ([facility], ) 5'6" Oxygen saturation in Arterial blood by Pulse oximetry 99 % 99 % [facility]) Systolic blood pressure 114 mm[Hg] 114 mm[Hg] [facility] Diastolic blood pressure 72 mm[Hg] 72 mm[Hg] [facility] ([facility]) Body height 66 [in_i] 66 [in_i] MEDENT ([facility]) 5'6" Body weight 166.38 [lb_av] 166.38 [lb_av] MEDEN T ([facility]) Body mass index (BMI) [Ratio] 26.9 kg/m2 26.9 k g/m2 [facility] ([facility]) Heart rate 104 /min 104 /min [facility] ([facility]) [facility] body weight 130 [lb_av] 130 [lb_av] MEDEN T ([facility]) Respiratory rate 18 /min 18 /min [facility] ( [facility]) Body temperature 99.2 [degF] 99.2 [degF] [facility] body weight 130 [lb_av] 130 [lb_av] MEDEN T ([facility]) Systolic blood pressure 126 mm[Hg] 126 mm[Hg] M EDENT ([facility]) Diastolic blood pressure 74 mm[Hg] 74 mm[Hg] [facility]) Heart rate 88 /min 88 /min [facility] ([facility]) Respiratory rate 16 /min 16 /min [facility] ( [facility]) Body height 66 [in_i] 66 [in_i] [facility] ([facility]) 5'6" Body weight 164.00 [lb_av] 164.00 [lb_av] [facility] Body mass index (BMI) [Ratio] 26.5 kg/m2 26.5 k g/m2 [facility] ([facility]) Body weight 74.390 kg 74.390 kg [facility] ([facility]) Body surface area Derived from formula 1.84 m2 1.84 m2 [facility] ([facility]) Body weight 163 [lb_av] 163 [lb_av] eCW1 ([facility]) Respiratory rate 20 /min 20 /min eCW1 ([facility]) Body temperature 97.9 [degF] 97.9 [degF] eCW1 ( [facility]) Systolic blood pressure 120 mm[Hg] 120 mm[Hg] e CW1 ([facility]) Diastolic blood pressure 84 mm[Hg] 84 mm[Hg] eCW1 ([facility]) Body weight 73.94 kg 73.94 kg W1 ([facility], [facility]) Body height 65 [in_i] 65 [in_i] W1 ([facility], [facility]) Body mass index (BMI) [Ratio] 27.12 kg/m2 27.12 kg/m2 [facility] ([facility]) Heart rate 97 /min 97 /min eCW1 ([facility]) Systolic blood pressure 124 mm[Hg] 124 mm[Hg] M EDENT ([facility]) Diastolic blood pressure 74 mm[Hg] 74 mm[Hg] [facility] ([facility]) Body weight 165.00 [lb_av] 165.00 [lb_av] MEDEN T ([facility]) Heart rate 106 /min 106 /min [facility]) Oxygen saturation in Arterial blood by Pulse oximetry 98 % 98 % [facility] ([facility]) Body height 66 [in_i] 66 [in_i] [facility] ([facility]) 5'6" Body mass index (BMI) [Ratio] 26.6 kg/m2 26.6 k g/m2 [facility] ([facility]) Respiratory rate 18 /min 18 /min [facility] ( [facility]) Body temperature 99.3 [degF] 99.3 [degF] [facility] body weight 130 [lb_av] 130 [lb_av] MEDEN T ([facility]) Body weight 163 [lb_av] 163 [lb_av] eCW1 ([facility]) Body weight 73.94 kg 73.94 kg eCW1 ([facility], [facility]) Body height 65 [in_i] 65 [in_i] eCW1 ([facility], [facility]) Body mass index (BMI) [Ratio] 27.12 kg/m2 27.12 kg/m2 eCW1 ([facility]) Heart rate 83 /min 83 /min eCW1 ([facility]) Respiratory rate 18 /min 18 /min eCW1 ([facility]) Body temperature 98.1 [degF] 98.1 [degF] eCW1 ( [facility]) Systolic blood pressure 106 mm[Hg] 106 mm[Hg] e CW1 ([facility]) Diastolic blood pressure 78 mm[Hg] 78 mm[Hg] eCW1 ([facility]) Body weight 166 [lb_av] 166 [lb_av] eCW1 ([facility]) Body weight 75.3 kg 75.3 kg eCW1 ([facility], [facility]) Body height 65 [in_i] 65 [in_i] eCW1 ([facility], [facility]) Body mass index (BMI) [Ratio] 27.62 kg/m2 27.62 kg/m2 eCW1 ([facility]) Heart rate 102 /min 102 /min eCW1 ([facility]) Respiratory rate 18 /min 18 /min eCW1 ([facility]) Body temperature 98.4 [degF] 98.4 [degF] eCW1 ( [facility]) Systolic blood pressure 108 mm[Hg] 108 mm[Hg] e CW1 ([facility]) Diastolic blood pressure 68 mm[Hg] 68 mm[Hg] eCW1 ([facility]) Body weight 166 [lb_av] 166 [lb_av] eCW1 ([facility]) Body weight 75.3 kg 75.3 kg eCW1 ([facility], [facility]) Body height 65 [in_i] 65 [in_i] eCW1 ([facility], [facility]) Body mass index (BMI) [Ratio] 27.62 kg/m2 27.62 kg/m2 eCW1 ([facility]) Heart rate 102 /min 102 /min eCW1 ([facility]) Respiratory rate 18 /min 18 /min eCW1 ([facility]) Body temperature 98.4 [degF] 98.4 [degF] eCW1 ( [facility]) Systolic blood pressure 108 mm[Hg] 108 mm[Hg] e CW1 ([facility]) Diastolic blood pressure 68 mm[Hg] 68 mm[Hg] eCW1 ([facility]) Heart rate 99 /min 99 /min MEDENT ([facility]) Body mass index (BMI) [Ratio] 26.3 kg/m2 26.3 k g/m2 [facility] ([facility]) Respiratory rate 18 /min 18 /min [facility] ( [facility]) Body temperature 99.8 [degF] 99.8 [degF] [facility] ([facility]) Oxygen saturation in Arterial blood by Pulse oximetry 121 % 121 % [facility] ([facility]) Systolic blood pressure 138 mm[Hg] 138 mm[Hg] M EDENT ([facility]) Diastolic blood pressure 87 mm[Hg] 87 mm[Hg] [facility] ([facility]) Body height 66 [in_i] 66 [in_i] MEDENT ([facility]) 5'6" Body weight 163.00 [lb_av] 163.00 [lb_av] MEDEN T ([facility]) [facility] body weight 130 [lb_av] 130 [lb_av] MEDEN T ([facility]) Systolic blood pressure 122 mm[Hg] 122 mm[Hg] M EDENT ([facility]) Diastolic blood pressure 64 mm[Hg] 64 mm[Hg] [facility] ([facility]) Body weight 164.00 [lb_av] 164.00 [lb_av] MEDEN T ([facility]) Body height 66 [in_i] 66 [in_i] MEDENT ([facility]) 5'6" [facility] body weight 130 [lb_av] 130 [lb_av] MEDEN T ([facility]) Body mass index (BMI) [Ratio] 26.5 kg/m2 26.5 k g/m2 [facility] ([facility]) Heart rate 103 /min 103 /min [facility] ([facility]) Respiratory rate 18 /min 18 /min [facility] ( [facility]) Body temperature 98.9 [degF] 98.9 [degF] [facility] ([facility]) Oxygen saturation in Arterial blood by Pulse oximetry 96 % 96 % [facility] ([facility]) Systolic blood pressure 112 mm[Hg] 112 mm[Hg] M EDENT ([facility]) Diastolic blood pressure 70 mm[Hg] 70 mm[Hg] [facility] ([facility]) Body height 66 [in_i] 66 [in_i] MEDENT ([facility]) 5'6" Body weight 166.38 [lb_av] 166.38 [lb_av] MEDEN T ([facility]) Body mass index (BMI) [Ratio] 26.9 kg/m2 26.9 k g/m2 [facility]) Heart rate 99 /min 99 /min [facility] ([facility]) Respiratory rate 18 /min 18 /min [facility] ( [facility]) Body temperature 99.0 [degF] 99.0 [degF] [facility] ([facility]) Oxygen saturation in Arterial blood by Pulse oximetry 99 % 99 % [facility] ([facility]) [facility] body weight 130 [lb_av] 130 [lb_av] MEDEN T ([facility]) Diastolic blood pressure 60 mm[Hg] 60 mm[Hg] [facility] ([facility], ) Body height 66 [in_i] 66 [in_i] [facility] ([facility]) 5'6" Body weight 162.00 [lb_av] 162.00 [lb_av] MEDEN T ([facility]) Systolic blood pressure 120 mm[Hg] 120 mm[Hg] M [facility] ([facility]) Body mass index (BMI) [Ratio] 26.1 kg/m2 26.1 k g/m2 [facility] ([facility]) [facility] body weight 130 [lb_av] 130 [lb_av] MEDEN T ([facility]) Body weight 73.483 kg 73.483 kg [facility] ([facility]) Body surface area Derived from formula 1.83 m2 1.83 m2 [facility] ([facility]) Systolic blood pressure 114 mm[Hg] 114 mm[Hg] M EDENT ([facility]) Body weight 158.38 [lb_av] 158.38 [lb_av] MEDEN T ([facility]) Body height 66 [in_i] 66 [in_i] MEDENT ([facility]) 5'6" Heart rate 66 /min 66 /min [facility] ([facility]) Body temperature 99.1 [degF] 99.1 [degF] [facility] ([facility]) Oxygen saturation in Arterial blood by Pulse oximetry 97 % 97 % [facility] ([facility]) [facility] body weight 130 [lb_av] 130 [lb_av] [facility] ([facility]) Body mass index (BMI) [Ratio] 25.6 kg/m2 25.6 k g/m2 [facility] ([facility]) Diastolic blood pressure 68 mm[Hg] 68 mm[Hg] [facility] ([facility]) Respiratory rate 18 /min 18 /min [facility] ( [facility])
[2021-01-13 13:00] LABS: BASO # 0.1 10^3/uL (0.0-0.2); BASO % 0.7 % (0.0-1.0); EOS # 0.4 10^3/uL (0.0-0.5); HEMATOCRIT 43.5 % (36.0-47.0); HEMOGLOBIN 14.4 g/dl (12.0-15.5); LYMPH # 2.1 10^3/uL (1.5-5.0); LYMPH % 22.9 % (24.0-44.0); MEAN CORPUSCULAR HGB CONC 33.1 g/dl (32.0-36.5); MEAN CORPUSCULAR VOLUME 90.6 fl (80.0-96.0); MONO # 0.6 10^3/uL (0.0-0.8); NEUTROPHILS # 5.9 10^3/uL (1.5-8.5); NEUTROPHILS % 65.2 % (36.0-66.0); PLATELET COUNT, AUTOMATED 361 10^3/uL (150-450)
[2021-01-13 13:30] LABS: APPEARANCE, URINE CLEAR (CLEAR); BACTERIA, URINE AUTO NEGATIVE (NEGATIVE); BILIRUBIN, URINE AUTO NEGATIVE (NEGATIVE); BLOOD, URINE BLOOD 1+ (NEGATIVE); COLOR, URINE STRAW (YELLOW); GLUCOSE, URINE (UA) AUTO NEGATIVE (NEGATIVE); KETONE, URINE AUTO NEGATIVE (NEGATIVE); LEUKOCYTE ESTERASE, URINE AUTO NEGATIVE (NEGATIVE); MUCUS, URINE SMALL (NEGATIVE); NITRITE, URINE AUTO NEGATIVE (NEGATIVE); PROTEIN, URINE AUTO NEGATIVE (NEGATIVE); RBC, URINE AUTO 2 /HPF (0-3); SPECIFIC GRAVITY URINE AUTO 1.008 (1.002-1.035); SQUAMOUS EPITHELIAL CELL UR AU 1 /HPF (0-6); UROBILINOGEN, URINE AUTO 0.2 mg/dL (0.0-2.0); WBC, URINE AUTO 0 /HPF (0-3)
[2021-01-13] MEDS ORDERED: RHOGAM 300 MCG (1500 IU) INJ (J2790) IM ONE (14:30)
--- NOTE | 2021-01-13 14:40 | REP ---
INDICATION: VAGINAL BLEEDING. COMPARISON: None. TECHNIQUE: Transabdominal and transvaginal ultrasound evaluation of the gravid uterus was performed. FINDINGS: 5, Para 3 LMP unknown Today's sono findings, crown lump length of 6 mm = 6 weeks 3 days, NIRMALA (today's sono) = 09/05/2021 Number: 1 Heart Rate: 124 BPM To the left of the gestational sac there is a subchorionic hemorrhage measuring 10 x 4 x 4 mm. IMPRESSION: 1. Single living intrauterine of 6 weeks 3 days, mean gestational age. The estimated date of delivery is 09/05/2021. 2. Subchorionic hemorrhage as described. <Electronically signed by Maico Hui > 01/13/21 2225
[2021-01-13 14:47] LABS: GC DNA AMPLIFICATION NEGATIVE (NEGATIVE)
[2021-01-13] MEDS ORDERED: metroNIDAZOLE (FLAGYL) 500MG TABLET PO ONE (14:50)
[2021-01-13] MEDS ORDERED: METR-265 PO (14:50)
[2021-01-13 15:03] VITALS: BP 127/78
== END 2021-01-13 15:33 | disposition home or self-care (01) ==
LOC: M ED 12:00
DX: O03.9 Complete or unspecified spontaneous abortion without complication (principal); K21.9 Gastro-esophageal reflux disease without esophagitis; F33.9 Major depressive disorder, recurrent, unspecified; F43.10 Post-traumatic stress disorder, unspecified; Z88.8 Allergy status to other drugs, medicaments and biological substances; Z3A.01 Less than 8 weeks gestation of pregnancy
CPT/HCPCS: 36415; 76801; 81001; 84702; 85025; 86850; 86900; 86901; 87086; 87210; 87491; 87591; 93976; 96372; 99283; J2790

== ENCOUNTER → 2021-01-31 | Outpatient (CLI) | payer OTHER ==
[~2021-01-31] MED LIST changes: +METR-265 PO
[2021-01-31 10:50] LABS: HEMATOCRIT 42.5 % (36.0-47.0); HEMOGLOBIN 13.6 g/dl (12.0-15.5); MEAN CORPUSCULAR HEMOGLOBIN 29.2 pg (27.0-33.0); MEAN CORPUSCULAR VOLUME 91.2 fl (80.0-96.0); PLATELET COUNT, AUTOMATED 337 10^3/uL (150-450); RED BLOOD COUNT 4.66 10^6/uL (4.00-5.40); WHITE BLOOD COUNT 9.8 10^3/uL (4.0-10.0)
[2021-01-31 12:02] LABS: HEPATITIS C VIRUS ABY INDEX 0.1 INDEX (<0.8); HIV 1&2 SCREEN CENTAUR NEGATIVE (NEGATIVE)
[2021-01-31 13:49] LABS: GC DNA AMPLIFICATION NEGATIVE (NEGATIVE)
== END ==
LOC: M PLALAB 07:28
PROVIDERS: ATTEND Specialist
DX: Z34.81 Encounter for supervision of other normal pregnancy, first trimester (principal)

== ENCOUNTER 2021-02-16 15:19 | Emergency (ER) | payer OTHER ==
[~2021-02-16] VITALS: Ht 167.6 cm; Wt 75.0 kg
[2021-02-16 15:20] VITALS: BP 115/67
--- OUTSIDE RECORDS SUMMARY | 2021-02-16 15:25 | CCD | Continuity of Care Document ---
Author Organization Unknown Address Unknown Phone Unavailable Care Team Providers Care Trouble Clerk Name Role Phone Annelise Thomas D.O. [facility] [phone] Camron Ndiaye M.D. [facility] [phone] Manfred Barrera M.D. [facility] [phone] Austyn Byrne LCSW [facility] [phone] Steph Jordan DO [facility] Usha Martinez DO [facility] [phone] Problems Active Problems Provider Date Mild recurrent [...] Seat Belt/Car Seat Never uses seat belt Allergies and adverse reactions Description No Known Drug Allergies Medications Active Medications SIG Qnty Indications Ordering Provide r Date Ibuprofen 800mg Tablets one tablet by mouth every 6 hours 360tabs Isidro TinajeroO. 0 04/21/[address] 1 by mouth every day on an empty stomach. 90tabs K21.00 Raul TinajeroOMesfin 12/30/2019 Proair HFA 108(90Base) mcg/Act Aer osol 2 puffs inhaled every 4 hours as needed 8.500gm Isidro DoyleOMesfin Cosentyx 300 Dose 15 0mg/ml Soln Prefill Syringe Unknown Immunizations CPT Code Status Date Vaccine Lot # [id number] Given 01/31/2020 Influenza Virus Vaccine, Quadrivalent, Split, Preservative Free [id number] Vital Signs Date Vital Result Comment 10/31/2020 1:09pm BP Systolic 128 mmHg BP Diastolic 72 mmHg Height 66 inches 5'6" Weight 166.38 lb BMI (Body Mass Index) 26.9 kg/m2 Heart Rate 97 /min Respiratory Rate 14 /min Body Temperature 98.5 F O2 % BldC Oximetry 99 % [place] Body Weight 130 lb 06/30/2020 1:14pm BP Systolic 130 mmHg BP Diastolic 80 mmHg Height 66 inches 5'6" Weight 168.00 lb BMI (Body Mass Index) 27.1 kg/m2 Heart Rate 87 /min Respiratory Rate 20 /min Body Temperature 99.9 F O2 % BldC Oximetry 98 % [place] Body Weight 130 lb Results Test Acquired Date Facility Test Result H/L Range Note Complete Blood Count 01/31/2021 [facility] Outpatient Test ing (Registration) [address] [place] [address] [phone] White Blood Count 9.8 10 Normal 4.0-10.0 Red Blood Count 4.66 10 Normal 4.00-5.40 Hemoglobin 13.6 g/dL Normal 12.0-15.5 Hematocrit 42.5 % Normal 36.0-47.0 Mean Corpuscular Volume 91.2 fl Normal 80.0-96.0 Mean Corpuscular Hemoglobin 29.2 pg Normal 27.0-33.0 Mean Corpuscular HGB Conc 32.0 g/dL Normal 32.0-36.5 Red Cell Distribution Width 12.1 % Normal 11.5-14.5 Platelet Count, Automated 337 10 Normal 150-450 Nucleated Red Blood Cell % 0.0 % Normal 0-0 Laboratory test finding 01/31/2021 [facility] Outpatient T esting (Registration) [address] [place] [address] [phone] Hepatitis C Virus Melita Index 0.1 INDEX Normal <0.8 1 HBsAg NEGATIVE Normal Negative 2 Syphilis NONREACTIVE Normal Nonreactive 3 Rubella Immune Status IMMUNE Normal Immune 4 HIV 1&2 Screen [facility] NEGATIVE Normal Negative 5 Type & Screen 1 - Includes Blo 01/31/2021 [facility] Outpatient Testing (Registration) [address] [place] [address] [phone] Blood Type O NEGATIVE Normal AB Screen PNP1 Gel (Vis) POSITIVE Normal Laboratory test finding 01/31/2021 [facility] Outpatient T esting (Registration) [address] [place] [address] [phone] Antibody Identification Anti-D Normal GC & Chlamydia By Amp 01/31/2021 [facility] Outpatient Anne ting (Registration) [address] [place] [address] [phone] Chlamydia Dna Amplification NEGATIVE Normal Nega tive 6 GC Dna Amplification NEGATIVE Normal Negative 7 Laboratory test finding 01/13/2021 [facility] Outpatient T esting (Registration) [address] [place] [address] [phone] [employer] TRANSFUSED PRODU <SEE NOTE> 8 1 Negative Not infected with HCV, unless recent infection is suspected or other evidence exists to indicate HCV infection. 2 note:<nlbl:demographic_chang ed> 3 note:<nlbl:demographic_chang ed> 4 THE RUBELLA RESULT WAS OBTAI SUKUMAR WITH THE CENTAUR RUBELLA IGG ASSAY. IgG VALUES FROM ANOTHER MANUFACTURERS' METHOD MAY NOT BE USED INTERCHANGEABLY. MAGNITUDE OF LEVEL CANNOT BE CORRELATED TO AN ENDPOINT TITER. SUSCEPTIBLE 0.00-5.00 IU/ML EQUIVOCAL 5.01-9.99 IU/ML IMMUNE > 10.00 IU/ML 5 This assay was performed uti lizing a chemiluminescent principle technique for the simultaneous qualitative detection of HIV-1 p24 antigen & antibodies to HIV-1 (including group O) & HIV-2 using the TabTaler XP system. The estimated 95% confidence interval for sensitivity of this antigen/antibody combination assay for HIV-1&2 antibodies is 99.7-100% and HIV p24 antigen is 89.4-99.9%. The estimated 95% confidence interval for specificity of this antigen/antibody combination in low risk populations is 99.6-99.8%. 6 A negative test result does not exclude the possibility of infection because test results may be affected by improper specimen collection, technical error, specimen mix-up, concurrent antibiotic therapy, or the number of organisms in the specimen which may be below the sensitivity of the test. 7 A negative test result does not exclude the possibility of infection because test results may be affected by improper specimen collection, technical error, specimen mix-up, concurrent antibiotic therapy, or the number of organisms in the specimen which may be below the sensitivity of the test. 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
--- OUTSIDE RECORDS SUMMARY | 2021-02-16 15:25 | CCD | Continuity of Care Document ---
Author Organization Unknown Address Unknown Phone Unavailable Care Team Providers Care Athletic Equipment Manager Name Role Phone Annelise Thomas D.O. AUTM Camron Ndiaye M.D. AUTM [phone] Manfred Barrera M.D. AUTM [phone] Austyn Byrne LCSW AUTM [phone] Steph Jordan DO AUTM Usha Martinez DO AUTM [phone] Problems Active Problems Provider Date Mild recurrent [...] CPT Code Status Date Vaccine Lot # [id number] Given 01/31/2020 Influenza Virus Vaccine, Quadrivalent, Split, Preservative Free [id number] Vital Signs Date Vital Result Comment 10/31/2020 1:09pm BP Systolic 128 mmHg BP Diastolic 72 mmHg Height 66 inches 5'6" Weight 166.38 lb BMI (Body Mass Index) 26.9 kg/m2 Heart Rate 97 /min Respiratory Rate 14 /min Body Temperature 98.5 F O2 % BldC Oximetry 99 % [place] Body Weight 130 lb 06/30/2020 1:14pm BP Systolic 130 mmHg BP Diastolic 80 mmHg Height 66 inches 5'6" Weight 168.00 lb BMI (Body Mass Index) 27.1 kg/m2 Heart Rate 87 /min Respiratory Rate 20 /min Body Temperature 99.9 F O2 % BldC Oximetry 98 % [place] Body Weight 130 lb Results Test Acquired Date Facility Test Result H/L Range Note Complete Blood Count 01/31/2021 [facility] Outpatient Test ing (Registration) [address] [place] [address] [phone] White Blood Count 9.8 10 Normal 4.0-10.0 [...] % Normal 0-0 Laboratory test finding 01/31/2021 [facility] Outpatient T esting (Registration) [address] [place] [address] [phone] Hepatitis C Virus Melita Index 0.1 INDEX Normal <0.8 1 HBsAg NEGATIVE Normal Negative 2 Syphilis NONREACTIVE Normal Nonreactive 3 Rubella Immune Status IMMUNE Normal Immune 4 HIV 1&2 Screen Centaur NEGATIVE Normal Negative 5 Type & Screen 1 - Includes Blo 01/31/2021 [facility] Outpatient Testing (Registration) [address] [place] [address] [phone] Blood Type O NEGATIVE Normal AB Screen PNP1 Gel (Vis) POSITIVE Normal Laboratory test finding 01/31/2021 [facility] Outpatient T esting (Registration) [address] [place] [address] [phone] Antibody Identification Anti-D Normal GC & Chlamydia By Amp 01/31/2021 [facility] Outpatient Anne ting (Registration) [address] [place] [address] [phone] Chlamydia Dna Amplification NEGATIVE Normal Nega tive 6 GC Dna Amplification NEGATIVE Normal Negative 7 Laboratory test finding 01/13/2021 [facility] Outpatient T esting (Registration) [address] [place] [address] [phone] Rhogam TRANSFUSED PRODU <SEE NOTE> 8 1 [...] (including group O) & HIV-2 using the Casetext[employer] XP system. 

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
--- OUTSIDE RECORDS SUMMARY | 2021-02-16 15:25 | CCD | Continuity of Care Document ---
Author Organization Unknown Address Unknown Phone Unavailable Care Team Providers Care Surgical Endoscopist Name Role Phone Annelise Thomas D.O. AUTM Camron Ndiaye M.D. AUTM [phone] Manfred Barrera M.D. AUTM [phone] Austyn Byrne LCSW AUTM [phone] Steph Jordan DO AUTM [phone] Usha Martinez DO AUTM [phone] Problems Active Problems Provider Date Mild recurrent [...] CPT Code Status Date Vaccine Lot # [id number] Given 01/31/2020 Influenza Virus Vaccine, Quadrivalent, Split, Preservative Free [id number] Vital Signs Date Vital Result Comment 10/31/2020 1:09pm BP Systolic 128 mmHg BP Diastolic 72 mmHg Height 66 inches 5'6" Weight 166.38 lb BMI (Body Mass Index) 26.9 kg/m2 Heart Rate 97 /min Respiratory Rate 14 /min Body Temperature 98.5 F O2 % BldC Oximetry 99 % [place] Body Weight 130 lb 06/30/2020 1:14pm BP Systolic 130 mmHg BP Diastolic 80 mmHg Height 66 inches 5'6" Weight 168.00 lb BMI (Body Mass Index) 27.1 kg/m2 Heart Rate 87 /min Respiratory Rate 20 /min Body Temperature 99.9 F O2 % BldC Oximetry 98 % [place] Body Weight 130 lb Results Test Acquired Date Facility Test Result H/L Range Note Laboratory test finding 01/13/2021 [facility] Outpatient T esting (Registration) [address] [place] [address] [phone] Rhogam TRANSFUSED PRODU <SEE NOTE> 1 1 TRANSFUSED PRODUCT: RHOGAM COUNT: 1 Procedures Date Code Description Status 10/31/2020 42511 Office/Outpatient Established Lo w MDM 20-29 Min Completed Medical Devices Description No Information Available Encounters Type Date Location Provider Dx Diagnosis Office Visit 10/31/2020 1:00p Family Medicine [facility] MICHAEL Edouard L40.9 Psoriasis, unspecified 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
--- OUTSIDE RECORDS SUMMARY | 2021-02-16 15:25 | CCD | Continuity of Care Document ---
Author Organization Unknown Address Unknown Phone Unavailable Care Team Providers Care Managing Broker Name Role Phone Annelise Thomas D.O. AUTM Camron Ndiaye M.D. AUTM [phone] Manfred Barrera M.D. AUTM [phone] Austyn Byrne LCSW AUTM [phone] Steph Jordan DO AUTM [phone] Usha Martinez DO AUTM [phone] Problems Active Problems Provider Date Mild recurrent major depression MICHAEL uRbalcava Onset: 0 03/31/2018 Generalized anxiety disorder MICHAEL [...] CPT Code Status Date Vaccine Lot # [id number] Given 01/31/2020 Influenza Virus Vaccine, Quadrivalent, Split, Preservative Free [id number] Vital Signs Date Vital Result Comment 10/31/2020 1:09pm BP Systolic 128 mmHg BP Diastolic 72 mmHg Height 66 inches 5'6" Weight 166.38 lb BMI (Body Mass Index) 26.9 kg/m2 Heart Rate 97 /min Respiratory Rate 14 /min Body Temperature 98.5 F O2 % BldC Oximetry 99 % [place] Body Weight 130 lb 06/30/2020 1:14pm BP Systolic 130 mmHg BP Diastolic 80 mmHg Height 66 inches 5'6" Weight 168.00 lb BMI (Body Mass Index) 27.1 kg/m2 Heart Rate 87 /min Respiratory Rate 20 /min Body Temperature 99.9 F O2 % BldC Oximetry 98 % [place] Body Weight 130 lb Results Test Acquired Date Facility Test Result H/L Range Note Complete Blood Count 01/31/2021 [facility] Outpatient Test ing (Registration) 0 [place] [address] [phone] White Blood Count 9.8 10 Normal 4.0-10.0 [...] % Normal 0-0 Laboratory test finding 01/31/2021 [facility] Outpatient T esting (Registration) [address] [place] [address] [phone] Hepatitis C Virus Melita Index 0.1 INDEX Normal <0.8 1 HBsAg NEGATIVE Normal Negative 2 Syphilis NONREACTIVE Normal Nonreactive 3 Rubella Immune Status IMMUNE Normal Immune 4 HIV 1&2 Screen Centaur NEGATIVE Normal Negative 5 Type & Screen 1 - Includes Blo 01/31/2021 [facility] Outpatient Testing (Registration) [address] [place] [address] [phone] Blood Type O NEGATIVE Normal AB Screen PNP1 Gel (Vis) POSITIVE Normal Laboratory test finding 01/31/2021 [facility] Outpatient T esting (Registration) [address] [place] [address] [phone] Antibody Identification Anti-D Normal GC & Chlamydia By Amp 01/31/2021 [facility] Outpatient Anne ting (Registration) [address] [place] [address] [phone] Chlamydia Dna Amplification NEGATIVE Normal Nega tive 6 GC Dna Amplification NEGATIVE Normal Negative 7 Laboratory test finding 01/13/2021 [facility] Outpatient T esting (Registration) [address] [place] [address] [phone] Rhogam TRANSFUSED PRODU <SEE NOTE> 8 1 [...] (including group O) & HIV-2 using the AltheaDxr XP system. The estimated 95% confidence interval [...] 1 Procedures Date Code Description Status 10/31/2020 59349 Office/Outpatient Established w MDM 20-29 Min Completed [...] MICHAEL Rubalcava 10/31/2020 F41.1 Generalized anxiety disorder [facility] MICHAEL Hernandez 10/31/2020 Z71.89 Other specified counseling [...]
--- OUTSIDE RECORDS SUMMARY | 2021-02-16 15:25 | CCD | Continuity of Care Document ---
Author Organization Unknown Address Unknown Phone Unavailable Care Team Providers Care Automotive Fleet Supervisor Name Role Phone Annelise Thomas D.O. AUTM Camron Ndiaye M.D. AUTM [phone] Manfred Barrera M.D. AUTM [phone] Austyn Byrne LCSW AUTM [phone] Steph Jordan DO AUTM Usha Martinez DO AUTM [phone] Problems Active Problems Provider Date Mild recurrent [...] CPT Code Status Date Vaccine Lot # [id number] Given 01/31/2020 Influenza Virus Vaccine, Quadrivalent, Split, Preservative Free [id number] Vital Signs Date Vital Result Comment 10/31/2020 1:09pm BP Systolic 128 mmHg BP Diastolic 72 mmHg Height 66 inches 5'6" Weight 166.38 lb BMI (Body Mass Index) 26.9 kg/m2 Heart Rate 97 /min Respiratory Rate 14 /min Body Temperature 98.5 F O2 % BldC Oximetry 99 % [place] Body Weight 130 lb 06/30/2020 1:14pm BP Systolic 130 mmHg BP Diastolic 80 mmHg Height 66 inches 5'6" Weight 168.00 lb BMI (Body Mass Index) 27.1 kg/m2 Heart Rate 87 /min Respiratory Rate 20 /min Body Temperature 99.9 F O2 % BldC Oximetry 98 % [place] Body Weight 130 lb Results Test Acquired Date Facility Test Result H/L Range Note Complete Blood Count 01/31/2021 [facility] Outpatient Test ing (Registration) 0 [place] [address] [phone] White Blood Count 9.8 10 Normal 4.0-10.0 [...] % Normal 0-0 Laboratory test finding 01/31/2021 [facility] Outpatient T esting (Registration) [address] [place] [address] [phone] Hepatitis C Virus Melita Index 0.1 INDEX Normal <0.8 1 HBsAg NEGATIVE Normal Negative 2 Syphilis NONREACTIVE Normal Nonreactive 3 Rubella Immune Status IMMUNE Normal Immune 4 HIV 1&2 Screen Centaur NEGATIVE Normal Negative 5 Type & Screen 1 - Includes Blo 01/31/2021 [facility] Outpatient Testing (Registration) [address] [place] [address] [phone] Blood Type O NEGATIVE Normal AB Screen PNP1 Gel (Vis) POSITIVE Normal Laboratory test finding 01/31/2021 [facility] Outpatient T esting (Registration) [address] [place] [address] [phone] Antibody Identification Anti-D Normal GC & Chlamydia By Amp 01/31/2021 [facility] Outpatient Anne ting (Registration) [address] [place] [address] [phone] Chlamydia Dna Amplification NEGATIVE Normal Nega tive 6 GC Dna Amplification NEGATIVE Normal Negative 7 Laboratory test finding 01/31/2021 [facility] Outpatient T esting (Registration) [address] [place] [address] [phone] Urine Culture FULL REPORT IN L <SEE NOTE> Normal 8 Laboratory test finding 01/13/2021 [facility] Outpatient T esting (Registration) [address] [place] [address] [phone] Rhogam TRANSFUSED PRODU <SEE NOTE> 9 1 Negative Not infected with HCV, unless [...] (including group O) & HIV-2 using the A[employer]G Pharmaceuticalr XP system. The estimated 95% confidence interval [...] below the sensitivity of the test. 8 FULL REPORT IN LAB NOTES ( W and [facility]). NO GROWTH CLINICAL SIGNIFICANCE 2 OR MORE ORGANISMS 9 TRANSFUSED PRODUCT: RHOGAM COUNT: 1 Procedures Date Code Description Status 10/31/2020 49428 Office/Outpatient Established w [facility] 20-29 Min Completed Medical Devices Description No Information Available Encounters Type Date Location Provider Dx Diagnosis Office Visit 10/31/2020 1:00p Family Medicine [facility] MICHAEL Rubalcava L40.9 Psoriasis, unspecified 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, predom inattentive type F41.1 Generalized anxiety disorder Z71.89 Other specified counseling Assessments Date Code Description Provider 10/31/2020 L40.9 Psoriasis MICHAEL Rubalcava 10/31/2020 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
--- OUTSIDE RECORDS SUMMARY | 2021-02-16 15:25 | CCD ---
Demographics Address [address] [place] [address] Preferred Language Unknown Marital Status Unknown Advent Affiliation Unknown Race White Ethnic Group Not or Author Author [facility] Organization [facility] Address Unknown Phone Unavailable Care Team Providers Care Wire Inserter Name Role Phone Angelique Rodriguez Unavailable PROBLEMS Type Condition ICD9-CM Code JSM00-LA Code Onset Dates Condition S tatus W/U Status Risk SNOMED Code Notes Problem Anxiety F41.9 Active confirmed 03415319 Problem Absence of right breast Z90.11 Active confirmed 445254106 Problem Irregular bleeding N92.6 Active confirmed 8 1817504 Problem Exacerbation of asthma, unsp ecified asthma severity, unspecified whether persistent J45.901 Active confirmed 517112139 Problem Supervision of other normal Z34.80 Ac tive confirm 045742528 Problem Allergic rhinitis J30.9 Active confirmed 61 587458 ALLERGIES Allergen (clinical drug ingredient) Drug/Non Drug Allergy do cumented on EMR Reaction Allergy Type Onset Date Status aspirin Aspirin([facility] Code:[address]-46) Unknown Drug Allergy Active ENCOUNTERS from 1987 to 2021-01-13 Encounter Location Date Provider Diagnosis [facility] [address] [facility] [phone] [place] [address] Dec, Angelique Rodriguez Spotting affectin g in first trimester O26.851 IMMUNIZATIONS Vaccine Route Administration Date Status RHo [...] Unknown Language: Question Answer Notes Languages spoken: Urdu Domestic Violence: Question Answer Notes Status: History [...] Information RESULTS No Results REASON FOR VISIT No Information MEDICAL (GENERAL) HISTORY Type Description Date Medical [...] Notes Treatment Notes Treatm ent Clinical Notes Dec, Spotting affecting in first tr imester (ICD-10 - O26.851) PLAN OF TREATMENT Treatment Notes Test Name Order Date US OB <14WKS EA ADD GESTATION 2021-01-12 Next Appt Details Provider Name:Prasanna Pierre, 2021-01-23 08:30:00 AM, [address] [facility], , [place], [address], Insurance Providers Payer Name Payer Address Payer Phone Insured Name Patient Relati onship to Insured Coverage Start Date Coverage End Date [facility] [employer] [address] [place] [id number] TOMÁS MUSA
--- OUTSIDE RECORDS SUMMARY | 2021-02-16 15:25 | CCD ---
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 Active confirmed 072653093 Problem Supervision of other normal Z34.80 Ac tive confirm 542241242 Problem Irregular bleeding N92.6 Active confirmed 8 5050452 Problem Exacerbation of asthma, unsp ecified asthma severity, unspecified whether persistent J45.901 Active confirmed 060443953 Problem Allergic rhinitis J30.9 Active confirmed 61 635915 Problem Anxiety F41.9 Active confirmed 43295059 ALLERGIES Allergen (clinical drug ingredient) Drug/Non Drug Allergy do cumented on EMR Reaction Allergy Type Onset Date Status aspirin Aspirin([facility] Code:[address]-23) Unknown Drug Allergy Active ENCOUNTERS from 1987 to 2021-02-12 Encounter Location Date Provider Diagnosis [facility] [phone] [place] [address] Jan, Malgorzata Maya IMMUNIZATIONS No Information SOCIAL HISTORY Tobacco Use: Social History Observation Description Date Details (start date - stop date) Never Smoker Sex Assigned At : Social History Observation Description Sex Assigned At Unknown Language: Question Answer Notes Languages spoken: Tajik Domestic Violence: Question Answer Notes Status: History [...] Notes Start Da te End Date Status Protonix 40 MG 1 tablet Orally Once a day for 90 days Active Vitamin 27-0.8 MG 1 tablet Orally Once a day for 90 day s Mar, Active PROCEDURES No Information RESULTS No Results REASON FOR VISIT bleeding MEDICAL (GENERAL) HISTORY Type Description Date Medical [...] Information ASSESSMENTS No Information PLAN OF TREATMENT Medication Medication Name Sig Start Date Stop Date Protonix 40 MG 1 tablet Orally Once a day for 90 days Next Appt Details Provider Name:Prasanna Pierre, 2021-02-21 01:15:00 PM, [address] [facility], , [place], [address], Insurance Providers Payer Name Payer Address Payer Phone Insured Name Patient Relati onship to Insured Coverage Start Date Coverage End Date [facility] [employer] [id number] [place] [id number] TOM[place]S M[place]
--- OUTSIDE RECORDS SUMMARY | 2021-02-16 15:25 | CCD ---
Author Author [facility] Organization [facility] Address Unknown Phone Unavailable Care Team Providers Care Motorcycle Riding Instructor Name Role Phone Prasanna Pierre Unavailable PROBLEMS ALLERGIES ENCOUNTERS from 1987 to 2021-01-23 IMMUNIZATIONS No Information SOCIAL HISTORY REASON FOR REFERRAL No Information VITAL SIGNS MEDICATIONS PROCEDURES No Information RESULTS No Results REASON FOR VISIT MEDICAL (GENERAL) HISTORY Goals Section Health Concerns MEDICAL EQUIPMENT No Information MENTAL STATUS FUNCTIONAL STATUS ASSESSMENTS No Information PLAN OF TREATMENT Insurance Providers
--- OUTSIDE RECORDS SUMMARY | 2021-02-16 15:25 | CCD | Continuity of Care Document ---
Author Organization Unknown Address Unknown Phone Unavailable Care Team Providers Care Planning Specialist Name Role Phone Annelise Thomas D.O. AUTM [phone] Camron Ndiaye M.D. [facility] [phone] Manfred Barrera M.D. [facility] [phone] Austyn Byrne LCSW AUTM [phone] Steph Jordan DO AUTM [phone] Usha Martinez DO AUTM [phone] Problems Active Problems Provider Date Mild recurrent major depression MICHAEL Rubalcava Onset: 0 03/31/2018 Generalized anxiety disorder MICHAEL Rubalcava Onset: 03/17 Migraine without aura, not refractory MICHAEL Rubalcava On set: 03/31/2018 Psoriasis MICHAEL Rubalcava Onset: 12/30/2019 Gastro-esophageal reflux disease with esophagitis MICHAEL Pino Onset: 12/30/2019 Uncomplicated moderate persistent asthma MICHAEL Rbualcava Onset: 12/30/2019 Attention deficit hyperactivity disorder, predominantl [...] CPT Code Status Date Vaccine Lot # [id number] Given 01/31/2020 Influenza Virus Vaccine, Quadrivalent, Split, Preservative Free [id number] Vital Signs Date Vital Result Comment 10/31/2020 1:09pm BP Systolic 128 mmHg BP Diastolic 72 mmHg Height 66 inches 5'6" Weight 166.38 lb BMI (Body Mass Index) 26.9 kg/m2 Heart Rate 97 /min Respiratory Rate 14 /min Body Temperature 98.5 F O2 % BldC Oximetry 99 % [place] Body Weight 130 lb 06/30/2020 1:14pm BP Systolic 130 mmHg BP Diastolic 80 mmHg Height 66 inches 5'6" Weight 168.00 lb BMI (Body Mass Index) 27.1 kg/m2 Heart Rate 87 /min Respiratory Rate 20 /min Body Temperature 99.9 F O2 % BldC Oximetry 98 % [place] Body Weight 130 lb Results Test Acquired Date Facility Test Result H/L Range Note Complete Blood Count 01/31/2021 [facility] Outpatient Test ing (Registration) [address] [place] [address] [phone] White Blood Count 9.8 10 Normal 4.0-10.0 [...] % Normal 0-0 Laboratory test finding 01/31/2021 [facility] Outpatient T esting (Registration) [address] [place] [address] [phone] Hepatitis C Virus Melita Index 0.1 INDEX Normal <0.8 1 HBsAg NEGATIVE Normal Negative 2 Syphilis NONREACTIVE Normal Nonreactive 3 Rubella Immune Status IMMUNE Normal Immune 4 HIV 1&2 Screen [place] NEGATIVE Normal Negative 5 Type & Screen 1 - Includes Blo 01/31/2021 [facility] Outpatient Testing (Registration) [address] [place] [address] [phone] Blood Type O NEGATIVE Normal AB Screen PNP1 Gel (Vis) POSITIVE Normal Laboratory test finding 01/31/2021 [facility] Outpatient T esting (Registration) [address] [place] [address] [phone] Antibody Identification Anti-D Normal GC & Chlamydia By Amp 01/31/2021 [facility] Outpatient Anne ting (Registration) [address] [place] [address] [phone] Chlamydia Dna Amplification NEGATIVE Normal Nega tive 6 GC Dna Amplification NEGATIVE Normal Negative 7 Laboratory test finding 01/13/2021 [facility] Outpatient T esting (Registration) [address] [place] [address] [phone] [employer] TRANSFUSED PRODU <SEE NOTE> 8 1 [...] (including group O) & HIV-2 using the [employer] XP system. The estimated 95% confidence interval [...] 1 Procedures Date Code Description Status 10/31/2020 62400 Office/Outpatient Established w MDM 20-29 Min Completed Medical Devices Description No Information Available Encounters Type Date Location Provider Dx Diagnosis Office Visit 10/31/2020 1:00p 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
--- OUTSIDE RECORDS SUMMARY | 2021-02-16 15:26 | CCD ---
Author Author [facility] Organization [facility] Address Unknown Phone Unavailable Care Team Providers Care Hot Pipe Gauger Name Role Phone NON-STAFF, PHYSICIAN Unavailable Unavailable SonjaPamella chino COMMERCIAL INTERIOR DESIGNER Unavailable Unavailable Sonja, Pamella Ken COMMERCIAL INTERIOR DESIGNER Unavailable Unavailable Sonja, Pamella Ken COMMERCIAL INTERIOR DESIGNER Unavailable Unavailable Sonja, Pamella Ken COMMERCIAL INTERIOR DESIGNER Unavailable Unavailable [place], Pamella Ken COMMERCIAL INTERIOR DESIGNER Unavailable Unavailable [place], Pamella Ken COMMERCIAL INTERIOR DESIGNER Unavailable Unavailable Sonja, Pamella Ken COMMERCIAL INTERIOR DESIGNER Unavailable Unavailable Sonja, Pamella Ken COMMERCIAL INTERIOR DESIGNER Unavailable Unavailable [place], Pamella Ken COMMERCIAL INTERIOR DESIGNER Unavailable Unavailable [place], Pamella Ken COMMERCIAL INTERIOR DESIGNER Unavailable Unavailable [place], Pamella Jesus Manuel COMMERCIAL INTERIOR DESIGNER Unavailable Unavailable [place], Pamella Ken COMMERCIAL INTERIOR DESIGNER Unavailable Unavailable [place], Pamella Jesus Manuel COMMERCIAL INTERIOR DESIGNER Unavailable Unavailable [place], Pamella Jesus Manuel COMMERCIAL INTERIOR DESIGNER Unavailable Unavailable Jean Claude LILLY Unavailable Unavailable Juju Lilly Unavailable Jessica Lillysie Unavailable O'denice, A Ky PA Unavailable Unavailable [...] Unavailable ANN, E CHELSEA DO Unavailable Unavailable NAN, E CHELSEA DO Unavailable Unavailable ANN, E [...] CHELSEA DO Unavailable Unavailable Duvall, A Phyl COMMERCIAL INTERIOR DESIGNER-BC Unavailable Unavailable Duvall, A Phyl COMMERCIAL INTERIOR DESIGNER-BC Unavailable Unavailable Duvall, A Phyl COMMERCIAL INTERIOR DESIGNER-BC Unavailable Unavailable Duvall, A Phyl COMMERCIAL INTERIOR DESIGNER-BC Unavailable Unavailable Duvall, A Phyl COMMERCIAL INTERIOR DESIGNER-BC Unavailable Unavailable Duvall, A Phyl COMMERCIAL INTERIOR DESIGNER-BC Unavailable Unavailable Duvall, A Phyl COMMERCIAL INTERIOR DESIGNER-BC Unavailable Unavailable Duvall, A Phyl COMMERCIAL INTERIOR DESIGNER-BC Unavailable Unavailable Duvall, A Phyl COMMERCIAL INTERIOR DESIGNER-BC Unavailable Unavailable Duvall, A Phyl COMMERCIAL INTERIOR DESIGNER-BC Unavailable Unavailable Duvall, A Phyl COMMERCIAL INTERIOR DESIGNER-BC Unavailable Unavailable Duvall, A Phyl COMMERCIAL INTERIOR DESIGNER-BC Unavailable Unavailable Duvall, A Phyl COMMERCIAL INTERIOR DESIGNER-BC Unavailable Unavailable Duvall, A Phyl COMMERCIAL INTERIOR DESIGNER-BC Unavailable Unavailable Duvall, A Phyl COMMERCIAL INTERIOR DESIGNER-BC Unavailable Unavailable Duvall, A Phyl COMMERCIAL INTERIOR DESIGNER-BC Unavailable Unavailable Duvall, A Phyl COMMERCIAL INTERIOR DESIGNER-BC Unavailable Unavailable Duvall, A Phyl COMMERCIAL INTERIOR DESIGNER-BC Unavailable Unavailable Duvall, A Phyl COMMERCIAL INTERIOR DESIGNER-BC Unavailable Unavailable Duvall, A Phyl COMMERCIAL INTERIOR DESIGNER-BC Unavailable Unavailable Duvall, A Phyl COMMERCIAL INTERIOR DESIGNER-BC Unavailable Unavailable Duvall, A Phyl COMMERCIAL INTERIOR DESIGNER-BC Unavailable Unavailable Duvall, A Phyl COMMERCIAL INTERIOR DESIGNER-BC Unavailable Unavailable Duvall, A Phyl COMMERCIAL INTERIOR DESIGNER-BC Unavailable Unavailable Duvall, A Phyl COMMERCIAL INTERIOR DESIGNER-BC Unavailable Unavailable Duvall, A Phyl COMMERCIAL INTERIOR DESIGNER-BC Unavailable Unavailable Duvall, A Phyl COMMERCIAL INTERIOR DESIGNER-BC Unavailable Unavailable Duvall, A Phyl COMMERCIAL INTERIOR DESIGNER-BC Unavailable Unavailable Duvall, A Phyl COMMERCIAL INTERIOR DESIGNER-BC Unavailable Unavailable Duvall, A Phyl COMMERCIAL INTERIOR DESIGNER-BC Unavailable Unavailable Duvall, A Phyl COMMERCIAL INTERIOR DESIGNER-BC Unavailable Unavailable Duvall, A Phyl COMMERCIAL INTERIOR DESIGNER-BC Unavailable Unavailable Aminata, Savana Unavailable Unavailable Aminata, [...] is protected by Article 27-F of the [facility] Public Health law. If you continue you may have access to information: Regarding HIV / AIDS; Provided by facilities licensed or operated by the [facility] Office of Mental Health; or Provided by the [facility] Office for People With Developmental Disabilities. If such information is present, then the following [facility] mandated warning applies: This information [...] law may result in a fine or halfway sentence or both. A general authorization for the release of medical or other information is NOT sufficient authorization for further disc losure. Family History Family Member Name Family Member Gender Family Member Status Date o f Status Description Data Source(s) Unknown Female Problem MEDENT ([facility]) Unknown Male Problem [facility] Unknown Unknown Problem MEDENT ([facility]) Encounters Encounter Providers Location Date Indications Data Source(s ) Unknown [address] [facility] [address] 02/05/2021 12:00:00 AM EST eCW1 ([facility]) (WC 1PN) W[facility] [address]st [address] [place] [address] 01/23/2021 12:00:00 AM EST eCW1 ([facility]) Unknown [address] [facility] [place] [address] 01/12/2021 12:00:00 AM EDT eCW1 ([facility]) Unknown [address] [facility] [place] [address] 01/04/2021 12:00:00 AM EDT eCW1 ([facility]) Unknown [address] [facility] [place] [address] 01/03/2021 12:00:00 AM EDT [facility]CW[facility] Unknown [address] [facility] [address] 01/01/2021 12:00:00 AM EDT eCW1 [facility] Outpatient Attender: Ky RODRIGUEZ [facility] 10/31/2020 01:00:00 PM EDT [facility] Outpatient Attender: Radha Duvall [facility]- Main Office 0 10/09/2020 11:30:00 AM EDT MEDALYSIA ([facility]) Outpatient Attender: NERI BATES PA-C 08/30/2020 05:00:00 PM [facility] Outpatient Attender: NAUN CARRINGTON FPMHNP 08/24/2020 01:00: 00 PM [facility] Outpatient Attender: Juju Lilly 08/24/2020 10:30:00 AM [facility] Outpatient Attender: Juju Lilly 08/16/2020 04:30:00 PM [facility] Outpatient Attender: Juju Lilly 08/09/2020 04:29:00 PM [facility] Admission cancelled. Disregard status an d admitted date. Outpatient Attender: NAUN ROLDAN 08/09/2020 03:30: 00 PM [facility] Outpatient Attender: Juju Lilly 08/07/2020 02:00:00 PM [facility] Outpatient Attender: Juju Lilly 08/02/2020 04:00:00 PM [facility] Outpatient Attender: Juju Lilly 07/31/2020 06:00:00 PM [facility] Outpatient [address] [facility] [address] 07/31/2020 12:00:00 AM EDT eCW1 ([facility]) Outpatient Attender: NAUN ROLDAN 07/27/2020 03:00: 00 PM [facility] Outpatient Attender: Juju Lilly 07/26/2020 05:00:00 PM [facility] Outpatient Attender: Juju Lilly 07/17/2020 09:59:00 AM [facility] Outpatient Attender: NAUN ROLDAN 07/13/2020 04:47: 00 PM [facility] Outpatient Attender: Juju LillyAttender: JUJU LILLY 07/10/2020 10:49:00 AM [facility] Outpatient Attender: Ky RODRIGUEZ [facility] 06/30/2020 01:10:00 PM EDT MEDENT ([facility]) Outpatient Attender: Savana Coates 06/27/2020 09:28:00 AM [facility] Outpatient Attender: Ky RODRIGUEZ [facility] 06/26/2020 11:00:00 AM EDT MEDENT ([facility]) Outpatient Attender: CHELSEA Kidd/Ivette/Paulo/Cheryl baltazar 06/12/2020 01:00:00 PM EDT MEDENT ([facility]) [place] [address] [facility] [address] 06/09/2020 12:00:00 AM EDT eCW1 ([facility]) Outpatient Attender: Ky RODRIGUEZ [facility] 05/25/2020 01:40:00 PM EST MEDENT ([facility]) Outpatient Attender: CHELSEA Kidd/Ivette/Paulo/Cheryl baltazar 05/15/2020 01:15:00 PM EST MEDENT ([facility]) ( [place]) [facility] Nurse Visit [address] [place] [address] 05/12/2020 12:00:00 AM EST eCW1 ([facility]) Outpatient [address] [facility] [address] 05/01/2020 12:00:00 AM EST [facility]CW1 [facility] Outpatient Attender: Ky RODRIGUEZ [facility] 04/27/2020 01:30:00 PM EST MEDENT ([facility]) ( [place]) [facility] Post Op [address] [place] [address] 04/24/2020 12:00:00 AM EST eCW1 ([facility]) Outpatient [address] [facility] [address] 04/19/2020 12:00:00 AM EST eCW1 ([facility]) Unknown [address] [facility] [place] [address] 04/19/2020 12:00:00 AM EST eCW1 ([facility]) Unknown [address] [facility] [place] [address] 04/17/2020 12:00:00 AM EST eCW1 ([facility]) Unknown [address] [facility] [place] [address] 04/13/2020 12:00:00 AM EST eCW1 [facility]) Outpatient Attender: [place] Chavessuant: PHYSICIAN NO N-STAFF 04/12/2020 04:52:00 PM EST - 04/12/2020 05:52:00 PM EST [facility] Outpatient Attender: Ky RODRIGUEZ [facility] 04/12/2020 02:30:00 PM EST MEDENT ([facility]) ([facility]) [facility] Nurse Visit [address] [place] [address] 02/25/2020 12:00:00 AM EST eCW1 ([facility]) Outpatient Attender: Ky RODRIGUEZ [facility] 02/18/2020 12:40:00 PM EST MEDENT ([facility]) Outpatient Attender: Ky RODRIGUEZ [facility] 01/31/2020 12:30:00 PM EST MEDENT ([facility]) Outpatient Attender: Jesus Manuel Barrera/Ivette/Paulo/Daniel ndl 01/04/2020 03:30:00 PM EDT MEDENT ([facility]) Outpatient Attender: Ky RODRIGUEZ [facility] 12/30/2019 01:00:00 PM EDT MEDENT ([facility]) Immunizations Vaccine Date Status Description Data Source(s) COVID-19 VACCINE Moderna 01/23/2021 12:00:00 AM EST completed [place] Vaccine Series Complete: YESThis Data wa s Submitted to [facility] Via [employer]. COVID-19 VACCINE Moderna 11/16/2020 12:00:00 AM EDT completed [place] Vaccine Series Complete: NOThis Data was Submitted to [facility] Via [employer]. 05/12/2020 10:27:00 AM EST completed e CW1 ([facility]) 05/12/2020 10:27:00 AM EST completed e CW1 ([facility]) 05/12/2020 10:27:00 AM EST completed e CW1 ([facility]) 05/12/2020 10:27:00 AM EST completed e CW1 ([facility]) 05/12/2020 10:27:00 AM EST completed e CW1 ([facility]) 05/12/2020 10:27:00 AM EST completed e CW1 ([facility]) 05/12/2020 10:27:00 AM EST completed e CW1 ([facility]) 05/12/2020 10:27:00 AM EST completed e CW1 ([facility]) 05/12/2020 10:27:00 AM EST completed e CW1 ([facility]) 02/25/2020 10:37:00 AM EST completed e CW1 ([facility]) 02/25/2020 10:37:00 AM EST completed e CW1 ([facility]) 02/25/2020 10:37:00 AM EST completed e CW1 ([facility]) 02/25/2020 10:37:00 AM EST completed e CW1 ([facility]) 02/25/2020 10:37:00 AM EST completed e CW1 ([facility]) 02/25/2020 10:37:00 AM EST completed e CW1 ([facility]) 02/25/2020 10:37:00 AM EST completed e CW1 ([facility]) 02/25/2020 10:37:00 AM EST completed e CW1 ([facility]) 02/25/2020 10:37:00 AM EST completed e CW1 ([facility]) 02/25/2020 10:37:00 AM EST completed e CW1 ([facility]) 02/25/2020 10:37:00 AM EST completed e CW1 ([facility]) 02/25/2020 10:37:00 AM EST completed e CW1 ([facility]) 02/25/2020 10:37:00 AM EST completed e CW1 ([facility]) 02/25/2020 10:37:00 AM EST completed e CW1 ([facility]) 02/25/2020 10:37:00 AM EST completed e CW1 ([facility]) New in 2011. IIV4 01/31/2020 01:00:00 PM EST completed MEDENT ([facility]) Medications Medication Brand Name Start Date Product Form Dose Route Admi nistrative Instructions Pharmacy Instructions Status Indications Reaction Description Data Source(s) Sulfamethoxazole 800 MG / Trimethoprim 160 MG Oral Tablet [B actrim] Bactrim DS 09/27/2020 12:00:00 AM EDT ORAL active MEDENT ([facility]) Sulfamethoxazole 800 MG / Trimethoprim 160 MG Oral Tablet [B actrim] Bactrim DS 06/26/2020 12:00:00 AM EDT ORAL completed MEDENT ([facility]) pantoprazole 40 MG Delayed Release Oral Tablet Pantoprazole Sodium 06/16/2020 12:00:00 AM EDT active M EDENT ([facility], ) Tretinoin 0.25 MG/ML Topical Cream Tretinoin 04/29/2020 12:00:00 AM EST active MEDENT ([facility]) Ibuprofen 800 MG Oral Tablet Ibuprofen 04/21/2020 12:00:00 AM EST ORAL active MEDENT ([facility]) Sulfamethoxazole 800 MG / Trimethoprim 160 MG Oral Tablet [B actrim] Bactrim DS 04/12/2020 12:00:00 AM EST ORAL completed MEDENT ([facility]) 24 HR Bupropion Hydrochloride 150 MG Extended Release Oral Tablet Bupropion Hydrochloride ER (XL) 02/18/2020 12:00:00 AM EST ORAL c ompleted MEDENT ([facility]) 24 HR venlafaxine 37.5 MG Extended Release Oral Capsule [Eff exor] Effexor XR 01/31/2020 12:00:00 AM EST ORAL completed MEDENT ([facility]) Sucralfate 100 MG/ML Oral Suspension [Carafate] Carafate 12/30/2019 12:00:00 AM EDT ORAL completed MEDENT ([facility]) 24 HR Amphetamine aspartate 5 MG / Amphe tamine Sulfate 5 MG / Dextroamphetamine saccharate 5 MG / Dextroamphetamine Sulfate 5 MG Extended Release Oral Capsule [Adderall] Adderall XR 12/30/2019 12:00:00 AM EDT ORAL active MEDENT ([facility]) pantoprazole 40 MG Delayed Release Oral Tablet [Protonix] Pr otonix 12/30/2019 12:00:00 AM EDT ORAL active M EDENT ([facility]) Insurance Providers Payer name Policy type / Coverage type Policy ID Covered green party ID Covered green party's relationship to arango Policy Arango Plan Information [facility] [id number] [facility] [id number] [facility] [id number] [facility] [id number] [facility] [id number] 01 [id number] O UNAVAILABLE UNAVAILA BLE [facility] O [id number] S [id number] [facility] 2017 Commercial [id number] Family Dependent [id number] [facility] 2017 Commercial [id number] Family Dependent [id number] [facility] (2017) Health Maintenance Organization (HMO) [id number] Family Dependent [id number] [place] [address] Commercial [id number] Family Dependent [id number] [facility] (2017) Health Maintenance Organization (HMO) [id number] Family Dependent [id number] SELF PAY O UNAVAILABLE S UNAVAILA BLE SELF PAY ONLY [id number] SP [id number] [facility] [id number] [facility] [id number] [facility] [id number] [facility] [id number] [facility] [id number] Family Dependent [id number] Problems, Conditions, and Diagnoses Code Display Name Description Problem Type Effective Dates Data Source(s) F43.20 Adjustment disorder, unspecified ADJUSTMENT DISO RDER, UNSPECIFIED Diagnosis 08/30/2020 05:00:00 PM [facility] F41.9 Anxiety disorder, unspecified ANXIETY DISORDER, UNSPEC IFIED Diagnosis 08/30/2020 05:00:00 PM [facility] F31.9 Bipolar disorder, unspecified BIPOLAR DISORDER, UNSPEC IFIED Diagnosis 08/30/2020 05:00:00 PM [facility] F43.10 Post-traumatic stress disorder, unspecif ied POST-TRAUMATIC STRESS DISORDER, UNSPECIFIED Diagnosis 08/30/2020 05:00:00 PM [facility] Dodie livingston G43.009 Migraine without aura, not intractable, without status migrainosus MIGRAINE W/O AURA, NOT INTRACTABLE, W/O STATUS AISHA Diagnosis 03:00:00 PM [facility] F32.9 Major depressive disorder, single episod e, unspecified MAJOR DEPRESSIVE DISORDER, SINGLE EPISODE, UNSPECI Diagnosis 07/26/2020 05:00:00 PM [facility] F41.1 Generalized anxiety disorder GENERALIZED ANXIETY DISOR LULU Diagnosis 07/26/2020 05:00:00 PM [facility] F39 Unspecified mood [affective] disorder UNSPECIFIE D MOOD [AFFECTIVE] DISORDER Diagnosis 07/13/2020 04:47:00 PM [facility] F31.30 Bipolar disorder, current ep isode depressed, mild or moderate severity, unspecified BIPOLAR DISORD, CRNT EPSD DEPRESS, MILD OR MOD SEV Diagnosis 06/27/2020 09:28:00 AM [facility] R928 Other abnormal and inconclusive findings on diagnostic imaging of breast Other abnormal and inconclusive findings on diagnostic imaging of breast Diagnosis 04/12/2020 04:52:00 PM [facility] N611 Abscess of the breast and nipple Abscess of the breast and nipple Diagnosis 04/12/2020 04:52:00 PM [facility] Z34.80 care Supervision of other normal P vladimir 01/19/2021 12:00:00 AM EDT eC1 ([facility]) N92.6 Irregular periods Irregular bleeding Problem 01/11/2021 12:00:00 AM EDT eCW1 ([facility]) Z90.11 [id number] Absence of right breast Problem 04/19/2020 1 2:00:00 AM EST [facility] ([facility]) J45.40 Uncomplicated moderate persistent asthma Uncomplicated moderate persistent asthma Problem 12/30/2019 12:00:00 AM EDT CLIFF ([facility]) K21.00 Gastro-esophageal reflux disease with es ophagitis Gastro-esophageal reflux disease with esophagitis Problem 12/30/2019 12:00:00 AM EDT Annemarie SERNA ([facility]) L40.9 Psoriasis Psoriasis Problem 12/30/2019 12:00:00 AM ED T MEDENT ([facility]) Surgeries/Procedures Procedure Description Date Indications Data Source(s) OFFICE OUTPATIENT VISIT 15 MINUTES 10/31/2020 12:00:00 AM EDT MEDENT ([facility]) OFFICE OUTPATIENT VISIT 25 MINUTES 10/09/2020 12:00:00 AM EDT MEDENT ([facility]) OFFICE OUTPATIENT VISIT 15 MINUTES 06/30/2020 12:00:00 AM EDT MEDENT ([facility]) OFFICE OUTPATIENT VISIT 15 MINUTES 06/26/2020 12:00:00 AM EDT MEDENT ([facility]) OFFICE OUTPATIENT VISIT 15 MINUTES 05/25/2020 12:00:00 AM EST MEDENT ([facility]) Injection, medroxyprogesterone acetate for contraceptive use , 150 mg 05/12/2020 12:00:00 AM EST eCW1 ([facility]) Injection, medroxyprogesterone acetate for contraceptive use , 150 mg 02/25/2020 12:00:00 AM EST eCW1 ([facility]) Results ID Date Data Source [id number] 01/31/2021 07:34:00 AM EST MEDENT ([facility]) Name Value Range Interpretation Code Description Data Agnieszka rce(s) Supporting Document(s) Bacteria identified in Urine by Culture Laboratory test result Normal (applies to non-numeric results) [facility] ([facility]) FULL REPORT IN LAB NOTES (eCW and Medent ). NO GROWTH CLINICAL SIGNIFICANCE 2 OR MORE ORGANISMS ID Date Data Source [id number] 01/31/2021 07:34:00 AM EST MEDENT ([facility]) Name Value Range Interpretation Code Description Data Agnieszka rce(s) Supporting Document(s) Chlamydia Dna Amplification Laboratory test result Normal (applies to non- numeric results) [facility] ([facility]) A negative test result does not exclude the possibility of infection because test results may be affected by improper specimen collection, technical error, specimen mix-up, concurrent antibiotic therapy, or the number of organisms in the specimen which may be below the sensitivity of the test. GC Dna Amplification Laboratory test result Norm al (applies to non-numeric results) [facility]) A negative test result does not exclude the possibility of infection because test results may be affected by improper specimen collection, technical error, specimen mix-up, concurrent antibiotic therapy, or the number of organisms in the specimen which may be below the sensitivity of the test. ID Date Data Source [id number] 01/31/2021 07:34:00 AM EST [facility]) Name Value Range Interpretation Code Description Data Agnieszka rce(s) Supporting Document(s) Blood group antibodies identified in Serum or Plasma Laboratory test result Normal (applies to non-numeric results) [facility]) ID Date Data Source [id number] 01/31/2021 07:34:00 AM EST [facility]) Name Value Range Interpretation Code Description Data Agnieszka rce(s) Supporting Document(s) Blood Type Laboratory test result Normal (applies to non-n umeric results) [facility]) AB Screen PNP1 Gel (Vis) Laboratory test result Normal (applies to non- numeric results) [facility]) ID Date Data Source [id number] 01/31/2021 07:34:00 AM EST [facility]) Name Value Range Interpretation Code Description Data Agnieszka rce(s) Supporting Document(s) Hepatitis B virus surface Ag [Presence] in Serum or Pl asma by Immunoassay Laboratory test result Normal (applies to non-numeric results) [facility]) <content>note:<nlbl:demographic_changed> </content>
<content></content> Hepatitis C virus Ab [Units/volume] in Serum by Immunoassay 0.1 INDEX Normal (applies to non-numeric results) [facility]) Negative Not infected with HCV, unless recent infection is suspected or other evidence exists to indicate HCV infection. Reagin Ab [Presence] in Serum by RPR Laboratory test result Normal (applies to non-numeric results) [facility]) <content>note:<nlbl:demographic_changed> </content>
<content></content> Rubella virus IgG Ab [Units/volume] in Serum or Plasma by Immunoassay Laboratory test result Normal (applies to non-numeric results) [facility] ([facility]) THE RUBELLA RESULT WAS OBTAINED WITH THE CENTAUR RUBELLA IGG ASSAY. IgG VALUES FROM ANOTHER MANUFACTURERS' METHOD MAY NOT BE USED INTERCHANGEABLY. MAGNITUDE OF LEVEL CANNOT BE CORRELATED TO AN ENDPOINT TITER. SUSCEPTIBLE 0.00-5.00 IU/ML EQUIVOCAL 5.01-9.99 IU/ML IMMUNE > 10.00 IU/ML HIV 1+2 Ab [Presence] in Serum Laboratory test result Normal (applies to non- numeric results) [facility] ([facility]) <content>This assay was performed utiliz ing a chemiluminescent</content>
<content>principle technique for the simultaneous qualitative</content>
<content>detection of HIV-1 p24 antigen & antibodies to HIV-1</content>
<content>(including group O) & HIV-2 using the Siemens Centaur XP</content>
<content>system.</content>
<content>The estimated 95% confidence interval for sensitivity of</content>
<content>this antigen/antibody combination assay for HIV-1&2</content>
<content>antibodies is 99.7-100% and HIV p24 antigen is 89.4-99.9%.</content>
<content>The estimated 95% confidence interval for specificity of</content>
<content>this antigen/antibody combination in low risk populations is</content>
<content>99.6-99.8%.</content>
<content></content> ID Date Data Source [id number] 01/31/2021 07:34:00 AM EST [facility] ([facility]) Name Value Range Interpretation Code Description Data Agnieszka rce(s) Supporting Document(s) White Blood Count 9.8 10 4.0-10.0 Normal (applies to non-numeri c results) [facility] ([facility]) Red Blood Count 4.66 10 4.00-5.40 Normal (applies to non-numeric results) [facility] ([facility]) Hematocrit 42.5 % 36.0-47.0 Normal (applies to non-numeric resul ts) [facility] ([facility]) Hemoglobin 13.6 g/dL 12.0-15.5 Normal (applies to non-numeric resul ts) [facility]) Mean Corpuscular Volume 91.2 fl 80.0-96.0 Normal ( applies to non-numeric results) [facility] ([facility]) Mean Corpuscular Hemoglobin 29.2 pg 27.0-33.0 Norm al (applies to non-numeric results) [facility] ([facility]) Red Cell Distribution Width 12.1 % 11.5-14.5 Norm al (applies to non-numeric results) [facility] ([facility]) Mean Corpuscular HGB Conc 32.0 g/dL 32.0-36.5 Normal (applies to non-numeric results) [facility] ([facility]) Platelet Count, Automated 337 10 150-450 Normal (applies to non-numeric results) [facility] ([facility]) Nucleated Red Blood Cell % 0.0 % 0-0 Normal (applies to n on-numeric results) [facility] ([facility]) ID Date Data Source SYPHILIS (RPR SCREEN) 01/31/2021 12:00:00 AM EST W1 ([facility]) Name Value Range Interpretation Code Description Data Agnieszka rce(s) Supporting Document(s) NONREACTIVE NONREACTIVE SYPHILIS W1 ([facility]) ID Date Data Source [id number] 01/31/2021 12:00:00 AM EST eCW1 ([facility]) Name Value Range Interpretation Code Description Data Agniezska rce(s) Supporting Document(s) HIV 1+2 Ab+HIV1 p24 Ag [Presence] in Serum or Plasma by Immu noassay NEGATIVE NEGATIVE HIV 1&2 SCREEN [facility] eCW1 ([facility]) ID Date Data Source HEPATITIS C ANTIBODY INDEX 01/31/2021 12:00:00 AM EST eCW1 ( [facility]) Name Value Range Interpretation Code Description Data Agnieszka rce(s) Supporting Document(s) 0.1 <0.8 HEPATITIS C VIRUS PRAVIN INDEX eC W1 ([facility]) ID Date Data Source CBC - Complete Blood Count 01/31/2021 12:00:00 AM EST eCW1 ( [facility]) Name Value Range Interpretation Code Description Data Agnieszka rce(s) Supporting Document(s) 9.8 4.0-10.0 WHITE BLOOD COUNT eCW1 ([facility]) 42.5 36.0-47.0 HEMATOCRIT eCW1 ([facility]) 4.66 4.00-5.40 RED BLOOD COUNT eCW1 (Critical access hospital) 13.6 12.0-15.5 HEMOGLOBIN eCW1 ([facility]) 91.2 80.0-96.0 MEAN CORPUSCULAR VOLUME e CW1 ([facility]) 29.2 27.0-33.0 MEAN CORPUSCULAR HEMOGLOB IN eCW1 ([facility]) 32.0 32.0-36.5 MEAN CORPUSCULAR HGB CONC eCW1 ([facility]) 337 150-450 PLATELET COUNT, AUTOMATED eCW1 ([facility]) 12.1 11.5-14.5 RED CELL DISTRIBUTION WID TH eCW1 ([facility]) ID Date Data Source [id number] 01/31/2021 12:00:00 AM EST eCW1 ([facility]) Name Value Range Interpretation Code Description Data Agnieszka rce(s) Supporting Document(s) NEGATIVE NEGATIVE HBsAg eCW1 ([facility]) ID Date Data Source RUBELLA IMMUNE STATUS IgG 01/31/2021 12:00:00 AM EST eCW1 ([facility]) Name Value Range Interpretation Code Description Data Agnieszka rce(s) Supporting Document(s) IMMUNE IMMUNE RUBELLA IgG QUALITATIVE eCW1 ( [facility]) ID Date Data Source [id number] 01/13/2021 02:29:00 PM EDT [facility] ([facility]) Name Value Range Interpretation Code Description Data Agnieszka rce(s) Supporting Document(s) Rh immune globulin screen [interpretation] Laboratory test result [facility] ([facility]) TRANSFUSED PRODUCT: RHOGAM COUNT: 1 ID Date Data Source [id number] 10/09/2020 11:53:00 AM EDT [facility] ([facility]) Name Value Range Interpretation Code Description Data Agnieszka rce(s) Supporting Document(s) Laboratory test finding (navigational concept) Laboratory test result [facility] ([facility]) ID Date Data Source [id number] 10/09/2020 11:53:00 AM EDT [facility] ([facility]) Name Value Range Interpretation Code Description Data Agnieszka rce(s) Supporting Document(s) Glucose [Mass/volume] in Serum or Plasma 124 mg/dL 65-99 Above high normal [facility] ([facility]) Urea nitrogen [Mass/volume] in Serum or Plasma 10 mg/dL 6-20 [facility] ([facility]) Creatinine [Mass/volume] in Serum or Plasma 0.63 mg/dL 0.57-1.00 [facility] ([facility]) eGFR If NonAfricn Am 118 mL/min/1.73 [facility] ([facility]) Urea nitrogen/Creatinine [Mass Ratio] in Serum or Plasma 16 9 -23 [facility] ([facility]) eGFR If Africn Am 136 mL/min/1.73 [facility] ([facility]) [facility] currently reports eGFR in comp liance with the current recommendations of the [employer] Kid[employer]. [facility] will update reporting as new guidelines are published from the NKF-ASN Task force. Potassium [Moles/volume] in Serum or Plasma 4.2 mmol/L 3.5-5.2 [facility] ([facility]) Sodium [Moles/volume] in Serum or Plasma 139 mmol/L 134-144 [facility] ([facility]) Calcium [Mass/volume] in Serum or Plasma 9.6 mg/dL 8.7-10.2 [facility] ([facility]) Carbon dioxide, total [Moles/volume] in Serum or Plasma 23 mmol/L 20 -29 [facility] ([facility]) Chloride [Moles/volume] in Serum or Plasma 105 mmol/L 96-106 [facility] ([facility]) Albumin [Mass/volume] in Serum or Plasma 4.9 g/dL 3.8-4.8 Above high normal [facility] ([facility]) Phosphate [Moles/volume] in Serum or Plasma 3.3 mg/dL 3.0-4.3 [facility] ([facility]) ID Date Data Source [id number] 10/09/2020 11:53:00 AM EDT [facility] ([facility]) Name Value Range Interpretation Code Description Data Agnieszka rce(s) Supporting Document(s) Laboratory test finding (navigational concept) Laboratory test result [facility] ([facility]) ID Date Data Source [id number] 10/09/2020 11:53:00 AM EDT [facility] ([facility]) Name Value Range Interpretation Code Description Data Agnieszka rce(s) Supporting Document(s) Laboratory test finding (navigational concept) Laboratory test result [facility] ([facility]) The QuantiFERON-TB Gold Plus result is d etermined by subtracting the Nil value from either TB antigen (Ag) tube. The mitogen tube serves as a control for the test. Mycobacterium tuberculosis stimulated ga mma interferon [Units/volume] corrected for background in Blood 0.00 IU/ml [facility] ([facility]) Laboratory test finding (navigational concept) Laboratory test result [facility] ([facility]) QuantiFERON TB2 Ag Value 0.00 IU/ml [facility] NT ([facility]) Laboratory test finding (navigational concept) 0.00 IU/ml [facility] ([facility]) Laboratory test finding (navigational concept) Laboratory test result [facility] ([facility]) The specimen received for QuantiFERON te sting was incubated by the ordering institution. Specific procedures outlined in our Directory of Services and in the package insert for the QuantiFERON Gold (In Tube) test must be followed to enabl e for proper stimulation of cells for the production of interferon gamma. Chemiluminescence immunoassay methodology ID Date Data Source [id number] 10/09/2020 11:53:00 AM EDT [facility] ([facility]) Name Value Range Interpretation Code Description Data Agnieszka rce(s) Supporting Document(s) Protein [Mass/volume] in Serum or Plasma 7.4 g/dL 6.0-8.5 [facility] ([facility]) Bilirubin.total [Mass/volume] in Serum or Plasma 0.2 mg/dL 0.0-1.2 [facility] ([facility]) Bilirubin.conjugated [Mass/volume] in Serum or Plasma 0.08 mg/dL 0.00 -0.40 [facility] ([facility]) Alkaline phosphatase [Enzymatic activity/volume] in Serum or Plasma 82 IU/L 48-121 [facility] ([facility]) Alanine aminotransferase [Enzymatic activity/volume] in Seru m or Plasma 57 IU/L 0-32 Above high normal [facility] ([facility] Aspartate aminotransferase [Enzymatic activity/volume] in Serum or Plasma 34 IU/L 0-40 [facility] ID Date Data Source [id number] 10/09/2020 11:53:00 AM EDT [facility] ([facility]) Name Value Range Interpretation Code Description Data Agnieszka rce(s) Supporting Document(s) Hepatitis A virus IgM Ab [Units/volume] in Serum by Im munoassay Laboratory test result [facility] ([facility]) Hepatitis B virus core Ab [Presence] in Serum or Plasm a by Immunoassay Laboratory test result [facility]) Hepatitis A virus Ab [Presence] in Serum by Immunoassay Labo ratory test result Abnormal (applies to non-numeric results) [facility] ([facility]) Hepatitis B virus core Ab [Presence] in Serum or Plasm a by Immunoassay Laboratory test result [facility] ([facility]) Non Reactive: Inconsistent with immunity , less than 10 mIU/mL Reactive: Consistent with immunity, greater than 9.9 mIU/mL ID Date Data Source [id number] 10/09/2020 11:53:00 AM EDT [facility] ([facility]) Name Value Range Interpretation Code Description Data Agnieszka rce(s) Supporting Document(s) Leukocytes [#/volume] in Blood by Automated count 8.7 x10E3/uL 3.4-10 .8 [facility] ([facility]) Erythrocytes [#/volume] in Blood by Automated count 4.89 x10E6/uL 3.7 7-5.28 [facility] ([facility]) Hemoglobin [Mass/volume] in Blood 14.3 g/dL 11.1-15.9 [facility] ([facility]) Hematocrit [Volume Fraction] of Blood by Automated count 43.6 % 3 4.0-46.6 [facility] ([facility]) Erythrocyte mean corpuscular volume [Entitic volume] by Auto mated count 89 fL 79-97 [facility] ([facility]) Erythrocyte distribution width [Ratio] by Automated count 12.8 % 11.7-15.4 [facility] ([facility]) Erythrocyte mean corpuscular hemoglobin [Entitic mass] by Automated count 29.2 pg 26.6-33.0 [facility] ([facility]) Erythrocyte mean corpuscular hemoglobin concentration [Mass/volume] by Automated count 32.8 g/dL 31.5-35.7 [facility] ([facility]) Neutrophils/100 leukocytes in Blood by Automated count 59 % [facility] ([facility]) Platelets [#/volume] in Blood by Automated count 416 x10E3/uL 150-450 [facility] ([facility]) Lymphocytes/100 leukocytes in Blood by Automated count 28 % [facility] ([facility]) Eosinophils/100 leukocytes in Blood by Automated count 4 % [facility] ([facility]) Monocytes/100 leukocytes in Blood by Automated count 8 % [facility] ([facility]) Immature cells [#/volume] in Blood Laboratory test result [facility] ([facility]) Basophils/100 leukocytes in Blood by Automated count 1 % [facility] ([facility]) Neutrophils [#/volume] in Blood by Automated count 5.2 x10E3/uL 1.4-7 .0 [facility] ([facility]) Monocytes [#/volume] in Blood 0.7 x10E3/uL 0.1-0.9 [facility] ([facility]) Lymphocytes [#/volume] in Blood 2.4 x10E3/uL 0.7-3.1 [facility] ([facility]) Basophils [#/volume] in Blood by Automated count 0.1 x10E3/uL 0.0-0.2 [facility] ([facility]) Eosinophils [#/volume] in Blood by Automated count 0.3 x10E3/uL 0.0-0 .4 [facility] ([facility]) Immature granulocytes [#/volume] in Blood by Automated count 0.0 x10E3/uL 0.0-0.1 [facility] ([facility]) Immature granulocytes/100 leukocytes in Blood by Automated count 0 % [facility] ([facility]) Nucleated erythrocytes/100 leukocytes [Ratio] in Blood by Automated count Laboratory test result [facility] ([facility]) Morphology [Interpretation] in Blood Narrative Laboratory test result [facility] ([facility]) ID Date Data Source [id number] 09/21/2020 07:12:00 AM EDT [facility] ([facility]) Name Value Range Interpretation Code Description Data Agnieszka rce(s) Supporting Document(s) Laboratory test finding (navigational concept) Laboratory test result [facility] ([facility]) Will treat for 14 days with Bactrim DS ID Date Data Source [id number] 09/21/2020 07:12:00 AM EDT [facility] ([facility]) Name Value Range Interpretation Code Description Data Agnieszka rce(s) Supporting Document(s) Bacteria identified in Unspecified specimen by Culture Laborator y test result Abnormal (applies to non-numeric results) [facility] ([facility]) Will treat for 14 days with Bactrim DS Bacteria identified in Unspecified specimen by Aerobe culture Laboratory test result Abnormal (applies to non-numeric results) [facility] ([facility]) Will treat for 14 days with Bactrim DS Bacteria identified in Unspecified specimen by Culture Laborator y test result [facility] ([facility]) Will treat for 14 days with Bactrim DS Other Antibiotic [Susceptibility] Laboratory test result [facility] ([facility]) Will treat for 14 days with Bactrim DS ID Date Data Source [id number] 09/20/2020 05:33:00 PM EDT [facility] ([facility]) Name Value Range Interpretation Code Description Data Agnieszka rce(s) Supporting Document(s) Bacteria identified in Unspecified specimen by Aerobe culture Laboratory test result [facility] ([facility]) ID Date Data Source [id number] 06/28/2020 10:43:00 PM EDT [facility] ([facility]) Name Value Range Interpretation Code Description Data Agnieszka rce(s) Supporting Document(s) Gram Stain Laboratory test result Normal (applies to non-n umeric results) [facility] ([facility]) FEW WBCS MODERATE RBCS FEW GRAM POSITIVE COCCI IN CLUSTERS Wound Culture Laboratory test result Normal (applies t o non-numeric results) [facility] ([facility]) <content>FULL REPORT IN LAB NOTES (eCW [...]
<content>CLIDAMYCIN SENSITIVE.</content>
<content></content> ID Date Data Source [id number] 05/26/2020 02:53:00 AM EST [facility] ([facility], ) Name Value Range Interpretation Code Description Data [facility] rce(s) Supporting Document(s) Surgical pathology study Laboratory test result [facility] ([facility], ) FINAL DIAGNOSIS Esophagus, biopsy: Squamous mucosa showing stroma fibrosis, reactive/reparative changes and infiltrate of eosinophils, in some area 10 eosinophils per high power field. 05/29/20201123 CLINICAL DIAGNOSIS Food impaction 05/26/20201256 GROSS DIAGNOSIS Received in formalin labeled "biopsy of esophagus" and consists of a fragment of tissue 0.1 x 0.1 x 0.1 cm. All in one. -OA 05/26/20201256 Signed TEMO MOON MD 05/29/2020 1124 ID Date Data Source [id number] 05/25/2020 11:13:00 PM EST [facility] ([facility]) Name Value Range Interpretation Code Description Data Agnieszka [facility](s) Supporting Document(s) Influenza A Amplification Laboratory test result Normal (applies to non- numeric results) [facility] ([facility]) Negative results do not preclude influen za or RSV virus infection and should not be used as the sole basis for treatment or other patient management decisions. Influenza B Amplification Laboratory test result Normal (applies to non- numeric results) [facility] ([facility]) Negative results do not preclude influen za or RSV virus infection and should not be used as the sole basis for treatment or other patient management decisions. RSV Amplification Laboratory test result Normal (applies to non-numeric results) [facility] ([facility]) Negative results do not preclude influen za or RSV virus infection and should not be used as the sole basis for treatment or other patient management decisions. Laboratory test finding (navigational concept) Laboratory test r esult Normal (applies to non-numeric results) [facility] ([facility]) A false negative result [...] pathogens. DISCLAIMER: Testing was performed using the [email or web address] SARS-CoV-2 test. This test was developed and its performance characteristics determined by [email or web address]. This test has not been FDA cleared [...] or revoked sooner. ID Date Data Source [id number] 05/25/2020 11:13:00 PM EST [facility] ([facility], ) Name Value Range Interpretation Code Description Data Agnieszka rce(s) Supporting Document(s) Influenza B Amplification Laboratory test result Normal (applies to non- numeric results) [facility] ([facility], ) Negative results do not preclude influen za or RSV virus infection and should not be used as the sole basis for treatment or other patient management decisions. Influenza A Amplification Laboratory test result Normal (applies to non- numeric results) [facility] ([facility], ) Negative results do not preclude influen za or RSV virus infection and should not be used as the sole basis for treatment or other patient management decisions. Laboratory test finding (navigational concept) Laboratory test r esult Normal (applies to non-numeric results) [facility] ([facility], [facility] A false negative result may occur [...] pathogens. DISCLAIMER: Testing was performed using the [email or web address] SARS-CoV-2 test. This test was developed and its performance characteristics determined by [email or web address]. This test has not been FDA cleared [...] test result Normal (applies to non-numeric results) [facility] ([facility], ) Negative results do not preclude influen za or RSV virus infection and should not be used as the sole basis for treatment or other patient management decisions. ID Date Data Source [id number] 05/25/2020 11:13:00 PM EST [facility] Name Value Range Interpretation Code Description Data Agnieszka rce(s) Supporting Document(s) SARS coronavirus 2 RNA [Presence] in Res piratory specimen by ISSA with probe detection NEGATIVE [facility] This lab was ordered by [facility] a nd reported by [facility]. ID Date Data Source [id number] 05/25/2020 10:19:00 PM EST [facility] ([facility]) Name Value Range Interpretation Code Description Data Agnieszka rce(s) Supporting Document(s) Laboratory test finding (navigational concept) 45.0 % 3 8.0-51.0 Normal (applies to non-numeric results) [facility] ([facility]) Laboratory test finding (navigational concept) 98 mg/dL 7 0-105 Normal (applies to non-numeric results) [facility] ([facility]) Laboratory test finding (navigational concept) 143 meq/L 1 36-145 Normal (applies to non-numeric results) [facility] ([facility]) Laboratory test finding (navigational concept) 4.1 meq/L 3 .5-5.1 Normal (applies to non-numeric results) [facility] ([facility]) Laboratory test finding (navigational concept) 5.0 mg/dL 4 .5-5.3 Normal (applies to non-numeric results) [facility] ([facility]) Laboratory test finding (navigational concept) 106 meq/L 9 8-109 Normal (applies to non-numeric results) [facility] ([facility]) Laboratory test finding (navigational concept) 27.0 MM/L 2 3.0-27.0 Normal (applies to non-numeric results) [facility] ([facility]) Laboratory test finding (navigational concept) 13 mg/dL 8 -26 Normal (applies to non-numeric results) [facility] ([facility]) Laboratory test finding (navigational concept) 0.7 mg/dL 0 .6-1.3 Normal (applies to non-numeric results) [facility] ([facility]) ID Date Data Source [id number] 05/25/2020 09:57:00 PM EST [facility] ([facility]) Name Value Range Interpretation Code Description Data Agnieszka rce(s) Supporting Document(s) Glucose, Fasting 97 mg/dL 70-100 Normal (applies to non-numeric results) [facility] ([facility]) Blood Urea Nitrogen 13 mg/dL 7-18 Normal (applies to non-nume hailey results) [facility] ([facility]) Creatinine For GFR 0.83 mg/dL 0.55-1.30 Normal (applies to non -numeric results) [facility] ([facility]) Glomerular Filtration Rate Laboratory test result Normal (applies to non- numeric results) [facility] ([facility]) <content>Units are mL/min/1.73 m2</content>
<content></content>
<content>Chronic Kidney Disease Staging per NKF:</content>
<content></content>
<content>Stage I & II GFR >=60 Normal to Mildly Decreased</content>
<content>Stage III GFR 30- 59 Moderately Decreased</content>
<content>Stage IV GFR 15-29 Severely Decreased</content>
<content>Stage V GFR <15 Very Little GFR Left</content>
<content>ESRD GFR <15 on [employer]</content>
<content></content> Sodium Level 142 meq/L 136-145 Normal (applies to non-numeric res ults) [facility] ([facility]) Potassium Serum 4.2 meq/L 3.5-5.1 Normal (applies to non-numeric results) [facility]) Chloride Level 110 meq/L 98-107 Above high normal [facility] ([facility]) Carbon Dioxide Level 27 meq/L 21-32 Normal (applies to non-num roxie results) [facility] ([facility]) Anion Gap 5 meq/L 8-16 Below low normal [facility] ( [facility]) Calcium Level 9.3 mg/dL 8.5-10.1 Normal (applies to non-numeric re sults) [facility] ([facility]) ID Date Data Source [id number] 05/25/2020 09:57:00 PM EST [facility] ([facility]) Name Value Range Interpretation Code Description Data Agnieszka rce(s) Supporting Document(s) Red Blood Count 4.97 10 4.00-5.40 Normal (applies to non-numeric results) [facility] ([facility]) White Blood Count 8.9 10 4.0-10.0 Normal (applies to non-numeri c results) [facility] ([facility]) Hemoglobin 14.3 g/dL 12.0-15.5 Normal (applies to non-numeric resul ts) [facility] ([facility]) Hematocrit 44.6 % 36.0-47.0 Normal (applies to non-numeric resul ts) [facility] ([facility]) Mean Corpuscular Volume 89.7 fl 80.0-96.0 Normal ( applies to non-numeric results) [facility] ([facility]) Mean Corpuscular Hemoglobin 28.8 pg 27.0-33.0 Norm al (applies to non-numeric results) [facility] ([facility]) Mean Corpuscular HGB Conc 32.1 g/dL 32.0-36.5 Normal (applies to non-numeric results) [facility] ([facility]) Red Cell Distribution Width 13.0 % 11.5-14.5 Norm al (applies to non-numeric results) [facility] ([facility]) Platelet Count, Automated 358 10 150-450 Normal (applies to non-numeric results) [facility] ([facility]) Neutrophils % 51.3 % 36.0-66.0 Normal (applies to non-numeric re sults) [facility] ([facility]) Lymph % 33.4 % 24.0-44.0 Normal (applies to non-numeric resul ts) [facility] ([facility]) Eos % 6.5 % 0.0-3.0 Above high normal [facility] ([facility]) [place] % 7.8 % 2.0-8.0 Normal (applies to non-numeric resul ts) [facility] ([facility]) Immature Granulocyte % 0.3 % 0-3.0 Normal (applies to non-n umeric results) [facility] ([facility]) Baso % 0.7 % 0.0-1.0 Normal (applies to non-numeric resul ts) [facility] ([facility]) Nucleated Red Blood Cell % 0.0 % 0-0 Normal (applies to n on-numeric results) [facility] ([facility]) Neutrophils # 4.6 10 1.5-8.5 Normal (applies to non-numeric re sults) [facility] ([facility]) Lymph # 3.0 10 1.5-5.0 Normal (applies to non-numeric resul ts) [facility] ([facility]) Eos # 0.6 10 0.0-0.5 Above high normal [facility] ([facility]) [place] # 0.7 10 0.0-0.8 Normal (applies to non-numeric resul ts) [facility] ([facility]) Baso # 0.1 10 0.0-0.2 Normal (applies to non-numeric resul ts) [facility] ([facility]) ID Date Data Source [id number] 04/19/2020 04:17:00 PM EST [facility] ([facility], ) Name Value Range Interpretation Code Description Data Agnieszka rce(s) Supporting Document(s) Blood group antibody screen [Presence] in Serum or Alyssa sma Laboratory test result Normal (applies to non-numeric results) [facility] ([facility], ) Blood Type Laboratory test result Normal (applies to non-n umeric results) [facility] ([facility]) ID Date Data Source [id number] 04/19/2020 04:17:00 PM EST [facility] ([facility]) Name Value Range Interpretation Code Description Data Agnieszka rce(s) Supporting Document(s) Blood Type Laboratory test result Normal (applies to non-n umeric results) [facility] ([facility]) AB Screen (Indirect Mekhi)Vis Laboratory test result Normal (applies to non- numeric results) [facility]) ID Date Data Source [id number] 04/19/2020 10:15:00 AM EST [facility] ([facility]) Name Value Range Interpretation Code Description Data Agnieszka rce(s) Supporting Document(s) Laboratory test finding (navigational concept) Laboratory test r esult Normal (applies to non-numeric results) [facility] ([facility], ) A false negative result may [...] pathogens. DISCLAIMER: Testing was performed using the [email or web address] SARS-CoV-2 test. This test was developed and its performance characteristics determined by [email or web address]. This test has not been FDA cleared [...] or revoked sooner. ID Date Data Source [id number] 04/19/2020 10:15:00 AM EST [facility] ([facility], ) Name Value Range Interpretation Code Description Data Agnieszka rce(s) Supporting Document(s) Coronavirus 2019 Nasopharygeal Laboratory test result [facility] ([facility], ) By: SANSHAYAN Time: 1014 Laboratory test finding (navigational concept) Laboratory test r esult Normal (applies to non-numeric results) [facility] ([facility]) A false negative result may [...] pathogens. DISCLAIMER: Testing was performed using the [email or web address] SARS-CoV-2 test. This test was developed and its performance characteristics determined by [email or web address]. This test has not been FDA cleared [...] or revoked sooner. ID Date Data Source [id number] 04/19/2020 10:15:00 AM EST [facility] ([facility]) Name Value Range Interpretation Code Description Data Agnieszka rce(s) Supporting Document(s) Laboratory test finding (navigational concept) Laboratory test r esult Normal (applies to non-numeric results) [facility] ([facility]) A false negative result [...] pathogens. DISCLAIMER: Testing was performed using the [email or web address] SARS-CoV-2 test. This test was developed and its performance characteristics determined by [email or web address]. This test has not been FDA cleared [...] or revoked sooner. ID Date Data Source [id number] 04/19/2020 10:15:00 AM [facility] Name Value Range Interpretation Code Description Data Agnieszka rce(s) Supporting Document(s) SARS coronavirus 2 RNA [Presence] in Res piratory specimen by ISSA with probe detection NEGATIVE [facility] This lab was ordered by [facility] a nd reported by [facility]. ID Date Data Source [id number] 04/14/2020 11:16:00 AM [facility] [address] [place] [address] PHONE: [phone] FAX: [phone] Name .................. : DIMPLE Massey Acct Number.................. : [id number] ROOM. ................. : MR Number ................... : [id number] Stay type ............. : O/P Discharge Date......... ... : 04/12/20 Admit Date ......... : 04/12/20 Admit Phys .................... : FAITH SEGUNDO Date of ....... : 1985 Family Phys ................... : NONSTAFF Phone .................. : [phone] Age ................................ : 34 Film# .................. .:[id number] Sex ................................. : F Unsigned transcriptions are preliminary reports and do not represent a medical or legal document BREAST RIGHT [id number] COMPLETE:04/12/20 20:00 ADB 3090 (TEST REASON: PAIN [...] By Silver Hawk M.D. , 04/14/20 11:16, DAGOBERTO Transcribe Initials: ROSEMARIE , Transcribe Date: 04/12/20 22:13, Dictation Date: Copy for: FAITH MCPHERSON via fax Copy for: [address] [place] [address] REC Page 1 of 1 Name Value Range Interpretation Code Description Data Agnieszka rce(s) Supporting Document(s) ID Date Data Source [id number] 04/14/2020 11:16:00 AM EST [facility] [address] [place] [address] PHONE: [phone] FAX: [phone] Name .................. : DIMPLE Massey Acct Number.................. : [id number] ROOM. ................. : MR Number ................... : [id number] Stay type ............. : O/P Discharge Date......... ... : 04/12/20 Admit Date ......... : 04/12/20 Admit Phys .................... : [facility] Date of ....... : 1985 Family Phys ................... : NONSTAFF Phone .................. : [phone] Age ................................ : 34 Film# .................. .:[id number] Sex ................................. : F Unsigned transcriptions are preliminary reports and do not represent a medical or legal document US BREAST LEFT [id number] COMPLETE:04/12/20 20:00 ADB 5705 (TEST REASON: DRAINAGE OF PUS FROM LEFT [...] By Silver Hawk M.D. , 04/14/20 11:16, [facility] Transcribe Initials: Dawit [place] anscribe Date: 04/12/20 22:11, Dictation Date: Copy for: FAITH MCPHERSON via fax Copy for: [facility] MED REC Page 1 of 1 Name Value Range Interpretation Code Description Data Agnieszka rce(s) Supporting Document(s) ID Date Data Source [id number] 04/12/2020 04:02:00 PM EST [facility] ([facility]) Name Value Range Interpretation Code Description Data Agnieszka rce(s) Supporting Document(s) Bacteria identified in Wound shallow by Aerobe culture Laborator y test result Normal (applies to non-numeric results) [facility] ([facility]) <content>FULL REPORT IN LAB NOTES (eCW [...] Value Status Description Data Source(s ) Smoking 01/23/2021 12:00:00 AM EST Never Smoker completed Never S moker eCW1 ([facility]) Smoking 01/23/2021 12:00:00 AM EST Never Smoker completed Never S moker eCW1 ([facility]) Smoking 07/31/2020 12:00:00 AM EDT Never Smoker completed Never S moker eCW1 ([facility]) Smoking 07/31/2020 12:00:00 AM EDT Never Smoker completed Never S moker eCW1 ([facility]) Smoking 07/31/2020 12:00:00 AM EDT Never Smoker completed Never S moker eCW1 ([facility]) Smoking 07/31/2020 12:00:00 AM EDT Never Smoker completed Never S moker eCW1 ([facility]) Smoking 07/31/2020 12:00:00 AM EDT Never Smoker completed Never S moker eCW1 ([facility]) Smoking 05/01/2020 12:00:00 AM EST Never Smoker completed Never S moker eCW1 ([facility]) Smoking 05/01/2020 12:00:00 AM EST Never Smoker completed Never S moker eCW1 ([facility]) Smoking 05/01/2020 12:00:00 AM EST Never Smoker completed Never S moker eCW1 ([facility]) Smoking 05/01/2020 12:00:00 AM EST Never Smoker completed Never S moker eCW1 ([facility]) Smoking 05/01/2020 12:00:00 AM EST Never Smoker completed Never S moker eCW1 ([facility]) Smoking 04/24/2020 12:00:00 AM EST Never Smoker completed Never S moker eCW1 ([facility]) Smoking 04/19/2020 12:00:00 AM EST Never Smoker completed Never S moker eCW1 ([facility]) Vital Signs ID Date Data Source [id number] Name Value Range Interpretation Code Description Data Source(s) Body weight 162.6 [lb_av] 162.6 [lb_av] eCW1 ([facility]) Body height 65 [in_i] 65 [in_i] eCW1 ([facility]) Body mass index (BMI) [Ratio] 27.058 kg/m2 27.0 58 kg/m2 eCW1 ([facility]) Systolic blood pressure 122 mm[Hg] 122 mm[Hg] e CW1 ([facility]) Diastolic blood pressure 74 mm[Hg] 74 mm[Hg] eCW1 ([facility]) Systolic blood pressure 128 mm[Hg] 128 mm[Hg] M EDENT ([facility]) Diastolic blood pressure 72 mm[Hg] 72 mm[Hg] [facility] ([facility]) Body height 66 [in_i] 66 [in_i] [facility] ([facility]) 5'6" Body weight 166.38 [lb_av] 166.38 [lb_av] [facility] T ([facility]) Body mass index (BMI) [Ratio] 26.9 kg/m2 26.9 k g/m2 [facility] ([facility]) Heart rate 97 /min 97 /min [facility] ([facility]) Respiratory rate 14 /min 14 /min [facility]) Body temperature 98.5 [degF] 98.5 [degF] [facility] Oxygen saturation in Arterial blood by Pulse oximetry 99 % 99 % [facility] ([facility]) [place] body weight 130 [lb_av] 130 [lb_av] [facility] T ([facility]) Respiratory rate 18 /min 18 /min [facility] ( [facility]) Systolic blood pressure 122 mm[Hg] 122 mm[Hg] M EDENT ([facility]) Diastolic blood pressure 72 mm[Hg] 72 mm[Hg] [facility] ([facility]) Respiratory rate 18 /min 18 /min [facility] ( [facility]) Body weight 167 [lb_av] 167 [lb_av] eCW1 ([facility]) Body weight 75.75 kg 75.75 kg eCW1 ([facility]) Body height 65 [in_i] 65 [in_i] eCW1 ([facility]) Body mass index (BMI) [Ratio] 27.79 kg/m2 27.79 kg/m2 [facility] ([facility]) Heart rate 87 /min 87 /min eCW1 ([facility]) Body temperature 97.4 [degF] 97.4 [degF] eCW1 ( [facility]) Systolic blood pressure 130 mm[Hg] 130 mm[Hg] e CW1 ([facility]) Diastolic blood pressure 82 mm[Hg] 82 mm[Hg] eCW1 ([facility]) Body weight 168.00 [lb_av] 168.00 [lb_av] [facility] T ([facility]) Body mass index (BMI) [Ratio] 27.1 kg/m2 27.1 k g/m2 [facility] ([facility]) Heart rate 87 /min 87 /min [facility] ([facility]) Respiratory rate 20 /min 20 /min [facility] ( [facility]) Systolic blood pressure 130 mm[Hg] 130 mm[Hg] M EDENT ([facility]) Diastolic blood pressure 80 mm[Hg] 80 mm[Hg] [facility] ([facility]) Body height 66 [in_i] 66 [in_i] [facility] ([facility]) 5'6" Body temperature 99.9 [degF] 99.9 [degF] [facility] ([facility]) Oxygen saturation in Arterial blood by Pulse oximetry 98 % 98 % [facility] ([facility]) [place] body weight 130 [lb_av] 130 [lb_av] [facility] T ([facility]) Systolic blood pressure 122 mm[Hg] 122 mm[Hg] M EDENT ([facility]) [place] body weight 130 [lb_av] 130 [lb_av] [facility] T ([facility]) Respiratory rate 18 /min 18 /min [facility] ( [facility]) Diastolic blood pressure 72 mm[Hg] 72 mm[Hg] [facility] ([facility]) Body height 66 [in_i] 66 [in_i] [facility] ([facility]) 5'6" Body temperature 98.9 [degF] 98.9 [degF] [facility] ([facility]) Oxygen saturation in Arterial blood by Pulse oximetry 97 % 97 % [facility] ([facility]) Body weight 169.38 [lb_av] 169.38 [lb_av] [facility] T ([facility]) Body mass index (BMI) [Ratio] 27.3 kg/m2 27.3 k g/m2 [facility] ([facility]) Heart rate 96 /min 96 /min [facility] ([facility]) [place] body weight 130 [lb_av] 130 [lb_av] MED[facility] T ([facility], ) Systolic blood pressure 128 mm[Hg] 128 mm[Hg] M EDENT ([facility], ) Diastolic blood pressure 68 mm[Hg] 68 mm[Hg] [facility] ([facility], ) Heart rate 84 /min 84 /min [facility] ([facility], ) Respiratory rate 16 /min 16 /min [facility] ( [facility], ) Body temperature 97.8 [degF] 97.8 [degF] [facility] ([facility], ) Body height 66 [in_i] 66 [in_i] [facility] ([facility] ) 5'6" Oxygen saturation in Arterial blood by Pulse oximetry 99 % 99 % [facility] ([facility]) Systolic blood pressure 114 mm[Hg] 114 mm[Hg] M EDENT ([facility]) Diastolic blood pressure 72 mm[Hg] 72 mm[Hg] [facility] ([facility]) Body height 66 [in_i] 66 [in_i] [facility] ([facility]) 5'6" Body weight 166.38 [lb_av] 166.38 [lb_av] MED[facility] T ([facility]) Body mass index (BMI) [Ratio] 26.9 kg/m2 26.9 k g/m2 [facility] ([facility]) Heart rate 104 /min 104 /min [facility] ([facility]) [place] body weight 130 [lb_av] 130 [lb_av] [facility] T ([facility]) Respiratory rate 18 /min 18 /min [facility] ( [facility]) Body temperature 99.2 [degF] 99.2 [degF] [facility] ([facility]) [place] body weight 130 [lb_av] 130 [lb_av] MEDEN T ([facility]) Systolic blood pressure 126 mm[Hg] 126 mm[Hg] M EDENT ([facility]) Diastolic blood pressure 74 mm[Hg] 74 mm[Hg] [facility] ([facility]) Heart rate 88 /min 88 /min [facility] ([facility]) Respiratory rate 16 /min 16 /min [facility] ( [facility]) Body height 66 [in_i] 66 [in_i] [facility] ([facility]) 5'6" Body weight 164.00 [lb_av] 164.00 [lb_av] MED[facility] T ([facility]) Body mass index (BMI) [Ratio] 26.5 kg/m2 26.5 k g/m2 [facility] ([facility]) Body weight 74.390 kg 74.390 kg [facility] ([facility]) Body surface area Derived from formula 1.84 m2 1.84 m2 [facility] ([facility]) Body weight 163 [lb_av] 163 [lb_av] eCW1 ([facility]) Body weight 73.94 kg 73.94 kg eCW1 ([facility]) Body height 65 [in_i] 65 [in_i] eCW1 ([facility]) Body mass index (BMI) [Ratio] 27.12 kg/m2 27.12 kg/m2 eCW1 ([facility]) Heart rate 97 /min 97 /min eCW1 ([facility]) Respiratory rate 20 /min 20 /min eCW1 ([facility]) Body temperature 97.9 [degF] 97.9 [degF] eCW1 ( [facility]) Systolic blood pressure 120 mm[Hg] 120 mm[Hg] e CW1 ([facility]) Diastolic blood pressure 84 mm[Hg] 84 mm[Hg] eCW1 ([facility]) Systolic blood pressure 124 mm[Hg] 124 mm[Hg] M EDENT ([facility]) Diastolic blood pressure 74 mm[Hg] 74 mm[Hg] [facility] ([facility]) Body weight 165.00 [lb_av] 165.00 [lb_av] MED[facility] T ([facility]) Heart rate 106 /min 106 /min [facility] ([facility]) Oxygen saturation in Arterial blood by Pulse oximetry 98 % 98 % [facility]) Body height 66 [in_i] 66 [in_i] [facility] ([facility]) 5'6" Body mass index (BMI) [Ratio] 26.6 kg/m2 26.6 k g/m2 [facility] ([facility]) Respiratory rate 18 /min 18 /min [facility] ( [facility]) Body temperature 99.3 [degF] 99.3 [degF] [facility]) [place] body weight 130 [lb_av] 130 [lb_av] [facility] T ([facility]) Body temperature 98.1 [degF] 98.1 [degF] eCW1 ( [facility]) Body weight 163 [lb_av] 163 [lb_av] eCW1 ([facility]) Body weight 73.94 kg 73.94 kg eCW1 ([facility]) Body height 65 [in_i] 65 [in_i] eCW1 ([facility]) Body mass index (BMI) [Ratio] 27.12 kg/m2 27.12 kg/m2 eCW1 ([facility]) Heart rate 83 /min 83 /min eCW1 ([facility]) Respiratory rate 18 /min 18 /min eCW1 ([facility]) Systolic blood pressure 106 mm[Hg] 106 mm[Hg] e CW1 ([facility]) Diastolic blood pressure 78 mm[Hg] 78 mm[Hg] eCW1 ([facility]) Body weight 166 [lb_av] 166 [lb_av] eCW1 ([facility]) Body weight 75.3 kg 75.3 kg eCW1 ([facility]) Body height 65 [in_i] 65 [in_i] eCW1 ([facility]) Body mass index (BMI) [Ratio] 27.62 kg/m2 27.62 kg/m2 eCW1 ([facility]) Heart rate 102 /min 102 /min eCW1 ([facility]) Respiratory rate 18 /min 18 /min eCW1 ([facility]) Body temperature 98.4 [degF] 98.4 [degF] eCW1 ( [facility]) Systolic blood pressure 108 mm[Hg] 108 mm[Hg] e CW1 ([facility]) Diastolic blood pressure 68 mm[Hg] 68 mm[Hg] eCW1 ([facility]) Body weight 166 [lb_av] 166 [lb_av] eCW1 ([facility]) Body weight 75.3 kg 75.3 kg W1 ([facility]) Body height 65 [in_i] 65 [in_i] eCW1 ([facility]) Body mass index (BMI) [Ratio] 27.62 kg/m2 27.62 kg/m2 eCW1 ([facility]) Heart rate 102 /min 102 /min eCW1 ([facility]) Respiratory rate 18 /min 18 /min eCW1 ([facility]) Body temperature 98.4 [degF] 98.4 [degF] eCW1 ( [facility]) Systolic blood pressure 108 mm[Hg] 108 mm[Hg] e CW1 ([facility]) Diastolic blood pressure 68 mm[Hg] 68 mm[Hg] eCW1 ([facility]) Body mass index (BMI) [Ratio] 26.3 kg/m2 26.3 k g/m2 [facility] ([facility]) Respiratory rate 18 /min 18 /min [facility] ( [facility]) Body temperature 99.8 [degF] 99.8 [degF] [facility] ([facility]) Oxygen saturation in Arterial blood by Pulse oximetry 121 % 121 % [facility] ([facility]) Heart rate 99 /min 99 /min [facility] ([facility]) Systolic blood pressure 138 mm[Hg] 138 mm[Hg] M EDENT ([facility]) Diastolic blood pressure 87 mm[Hg] 87 mm[Hg] [facility] ([facility]) Body height 66 [in_i] 66 [in_i] [facility] ([facility]) 5'6" Body weight 163.00 [lb_av] 163.00 [lb_av] MEDEN T ([facility]) [place] body weight 130 [lb_av] 130 [lb_av] MEDEN T ([facility]) Diastolic blood pressure 64 mm[Hg] 64 mm[Hg] [facility] ([facility]) Systolic blood pressure 122 mm[Hg] 122 mm[Hg] [facility] Body height 66 [in_i] 66 [in_i] [facility] ([facility]) 5'6" Body weight 164.00 [lb_av] 164.00 [lb_av] MEDEN T ([facility]) [place] body weight 130 [lb_av] 130 [lb_av] MEDEN T ([facility]) Body mass index (BMI) [Ratio] 26.5 kg/m2 26.5 k g/m2 [facility] ([facility]) Heart rate 103 /min 103 /min [facility] ([facility]) Respiratory rate 18 /min 18 /min [facility] ( [facility]) Body temperature 98.9 [degF] 98.9 [degF] [facility] ([facility]) Oxygen saturation in Arterial blood by Pulse oximetry 96 % 96 % [facility]) Systolic blood pressure 112 mm[Hg] 112 mm[Hg] M EDENT ([facility]) Diastolic blood pressure 70 mm[Hg] 70 mm[Hg] [facility] ([facility]) Body height 66 [in_i] 66 [in_i] [facility] ([facility]) 5'6" Body weight 166.38 [lb_av] 166.38 [lb_av] MEDEN T ([facility]) Body mass index (BMI) [Ratio] 26.9 kg/m2 26.9 k g/m2 [facility] ([facility]) Heart rate 99 /min 99 /min [facility] ([facility]) Respiratory rate 18 /min 18 /min [facility] ( [facility]) Body temperature 99.0 [degF] 99.0 [degF] [facility] ([facility]) Oxygen saturation in Arterial blood by Pulse oximetry 99 % 99 % [facility] ([facility]) [place] body weight 130 [lb_av] 130 [lb_av] MEDEN T ([facility]) Diastolic blood pressure 60 mm[Hg] 60 mm[Hg] [facility] ([facility]) Body height 66 [in_i] 66 [in_i] [facility] ([facility]) 5'6" Body weight 162.00 [lb_av] 162.00 [lb_av] [facility] ([facility]) Systolic blood pressure 120 mm[Hg] 120 mm[Hg] [facility] ([facility]) Body mass index (BMI) [Ratio] 26.1 kg/m2 26.1 k g/m2 [facility] ([facility]) [place] body weight 130 [lb_av] 130 [lb_av] [facility] ([facility]) Body weight 73.483 kg 73.483 kg [facility] ([facility]) Body surface area Derived from formula 1.83 m2 1.83 m2 [facility] ([facility]) Body weight 158.38 [lb_av] 158.38 [lb_av] [facility] ([facility]) Systolic blood pressure 114 mm[Hg] 114 mm[Hg] [facility] ([facility]) Heart rate 66 /min 66 /min [facility] ([facility]) Body temperature 99.1 [degF] 99.1 [degF] [facility] ([facility]) Oxygen saturation in Arterial blood by Pulse oximetry 97 % 97 % [facility] ([facility]) [place] body weight 130 [lb_av] 130 [lb_av] [facility] ([facility]) Body height 66 [in_i] 66 [in_i] [facility] ([facility]) 5'6" Diastolic blood pressure 68 mm[Hg] 68 mm[Hg] [facility] ([facility]) Body mass index (BMI) [Ratio] 25.6 kg/m2 25.6 k g/m2 [facility] ([facility]) Respiratory rate 18 /min 18 /min [facility] ( [facility])
--- OUTSIDE RECORDS SUMMARY | 2021-02-16 17:03 | CCD ---
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 Name Role Phone NON-STAFF, PHYSICIAN Unavailable Unavailable SonjaPamella chino FITTING ROOM OPERATOR Unavailable Unavailable Sonja, Pamella Ken FITTING ROOM OPERATOR Unavailable Unavailable Sonja, Pamella Ken FITTING ROOM OPERATOR Unavailable Unavailable Sonja, Pamella Ken FITTING ROOM OPERATOR Unavailable Unavailable [place], Paemlla Ken FITTING ROOM OPERATOR Unavailable Unavailable [place], Pamella Ken FITTING ROOM OPERATOR Unavailable Unavailable Sonja, Pamella Ken FITTING ROOM OPERATOR Unavailable Unavailable Sonja, Pamella Ken FITTING ROOM OPERATOR Unavailable Unavailable [place], Pamella Ken FITTING ROOM OPERATOR Unavailable Unavailable [place], Pamella Ken FITTING ROOM OPERATOR Unavailable Unavailable [place], Pamella Jesus Manuel FITTING ROOM OPERATOR Unavailable Unavailable [place], Pamella Ken FITTING ROOM OPERATOR Unavailable Unavailable [place], Pamella Jesus Manuel FITTING ROOM OPERATOR Unavailable Unavailable [place], Pamella Jesus Manuel FITTING ROOM OPERATOR Unavailable Unavailable Jean Claude LILLY Unavailable Unavailable [...] CHELSEA DO Unavailable Unavailable Duvall, A Phyl FITTING ROOM OPERATOR-BC Unavailable Unavailable Duvall, A Phyl FITTING ROOM OPERATOR-BC Unavailable Unavailable Duvall, A Phyl FITTING ROOM OPERATOR-BC Unavailable Unavailable Duvall, A Phyl FITTING ROOM OPERATOR-BC Unavailable Unavailable Duvall, A Phyl FITTING ROOM OPERATOR-BC Unavailable Unavailable Duvall, A Phyl FITTING ROOM OPERATOR-BC Unavailable Unavailable Duvall, A Phyl FITTING ROOM OPERATOR-BC Unavailable Unavailable Duvall, A Phyl FITTING ROOM OPERATOR-BC Unavailable Unavailable Duvall, A Phyl FITTING ROOM OPERATOR-BC Unavailable Unavailable Duvall, A Phyl FITTING ROOM OPERATOR-BC Unavailable Unavailable Duvall, A Phyl FITTING ROOM OPERATOR-BC Unavailable Unavailable Duvall, A Phyl FITTING ROOM OPERATOR-BC Unavailable Unavailable Duvall, A Phyl FITTING ROOM OPERATOR-BC Unavailable Unavailable Duvall, A Phyl FITTING ROOM OPERATOR-BC Unavailable Unavailable Duvall, A Phyl FITTING ROOM OPERATOR-BC Unavailable Unavailable Duvall, A Phyl FITTING ROOM OPERATOR-BC Unavailable Unavailable Duvall, A Phyl FITTING ROOM OPERATOR-BC Unavailable Unavailable Duvall, A Phyl FITTING ROOM OPERATOR-BC Unavailable Unavailable Duvall, A Phyl FITTING ROOM OPERATOR-BC Unavailable Unavailable Duvall, A Phyl FITTING ROOM OPERATOR-BC Unavailable Unavailable Duvall, A Phyl FITTING ROOM OPERATOR-BC Unavailable Unavailable Duvall, A Phyl FITTING ROOM OPERATOR-BC Unavailable Unavailable Duvall, A Phyl FITTING ROOM OPERATOR-BC Unavailable Unavailable Duvall, A Phyl FITTING ROOM OPERATOR-BC Unavailable Unavailable Duvall, A Phyl FITTING ROOM OPERATOR-BC Unavailable Unavailable Duvall, A Phyl FITTING ROOM OPERATOR-BC Unavailable Unavailable Duvall, A Phyl FITTING ROOM OPERATOR-BC Unavailable Unavailable Duvall, A Phyl FITTING ROOM OPERATOR-BC Unavailable Unavailable Duvall, A Phyl FITTING ROOM OPERATOR-BC Unavailable Unavailable Duvall, A Phyl FITTING ROOM OPERATOR-BC Unavailable Unavailable Duvall, A Phyl FITTING ROOM OPERATOR-BC Unavailable Unavailable Duvall, A Phyl FITTING ROOM OPERATOR-BC Unavailable Unavailable Aminata, Savana Unavailable Unavailable Aminata, [...] F NAUN FPMHNP Unavailable Unavailable EGORHO, F NANU FPMHNP Unavailable Unavailable EGORHO, F NAUN FPMHNP [...] Source(s) Unknown Female Problem MEDENT (Family [facility]) Unknown Male Problem [facility] Unknown Unknown Problem MEDENT ([facility]) Encounters Encounter Providers Location Date Indications Data Source(s ) Unknown [address] [facility] [address] 02/05/2021 12:00:00 AM EST eCW1 ([facility]) (WC 1PN) WCenter 1st [address] [place] [address] 01/23/2021 12:00:00 AM EST eCW1 ([facility]) Unknown [address] [facility] [place] [address] 01/12/2021 12:00:00 AM EDT eCW1 ([facility]) Unknown [address] [facility] [place] [address] 01/04/2021 12:00:00 AM EDT eCW1 ([facility]) Unknown [address] [facility] [place] [address] 01/03/2021 12:00:00 AM EDT [facility]CW1 [facility] Unknown [address] [facility] [address] 01/01/2021 12:00:00 AM EDT eCW1 [facility] [place]) Outpatient Attender: Ky RODRIGUEZ [facility] 10/31/2020 01:00:00 PM EDT [facility] Outpatient Attender: Radha Duvall [facility]- Main Office 0 10/09/2020 11:30:00 AM EDT MEDALYSIA ([facility]) Outpatient Attender: NERI BATES PA-C 08/30/2020 05:00:00 PM [facility] Outpatient Attender: NAUN CARRINGTON FPMHNP 08/24/2020 01:00: 00 PM [facility] Outpatient Attender: Juju Lilly 08/24/2020 10:30:00 AM [facility] Outpatient Attender: Juju Lilly 08/16/2020 04:30:00 PM [facility] Outpatient Attender: Juju Lilly 08/09/2020 04:29:00 PM [facility] Admission cancelled. Disregard status an d admitted date. Outpatient Attender: NAUN ROLDAN 08/09/2020 03:30: 00 PM [facility] Outpatient Attender: Juju Lilly 08/07/2020 02:00:00 PM [facility] Outpatient Attender: Juju Lilly 08/02/2020 04:00:00 PM [facility] Outpatient Attender: Juju Lilly 07/31/2020 06:00:00 PM [facility] Outpatient [address] [facility] [address] 07/31/2020 12:00:00 AM EDT eCW1 ([facility]) Outpatient Attender: NAUN ROLDAN 07/27/2020 03:00: 00 PM [facility] Outpatient Attender: Juju Lilly 07/26/2020 05:00:00 PM [facility] Outpatient Attender: Juju Lilly 07/17/2020 09:59:00 AM [facility] Outpatient Attender: NAUN ROLDAN 07/13/2020 04:47: 00 PM [facility] Outpatient Attender: Juju LillyAttender: JUJU LILLY 07/10/2020 10:49:00 AM [facility] Outpatient Attender: Ky RODRIGUEZ Family [facility] 06/30/2020 01:10:00 PM EDT MEDENT ([facility]) Outpatient Attender: Savana Coates 06/27/2020 09:28:00 AM [facility] Outpatient Attender: Ky RODRIGUEZ [facility] 06/26/2020 11:00:00 AM EDT MEDENT (Family [facility]) Outpatient Attender: CHELSEA Kidd/Ivette/Paulo/Cheryl baltazar 06/12/2020 01:00:00 PM EDT MEDENT ([facility] Unknown [address] [facility] [address] 06/09/2020 12:00:00 AM EDT eCW1 ([facility]) Outpatient Attender: Ky RODRIGUEZ Family [facility] 05/25/2020 01:40:00 PM EST MEDENT ([facility]) Outpatient Attender: CHELSEA Kidd/Ivette/Paulo/Cheryl baltazar 05/15/2020 01:15:00 PM EST MEDENT ([facility]) ( [place]) [facility] Nurse Visit [address] [place] [address] 05/12/2020 12:00:00 AM EST eCW1 ([facility]) Outpatient [address] [facility] [address] 05/01/2020 12:00:00 AM EST [facility]CW1 [facility] Outpatient Attender: Ky RODRIGUEZ [facility] 04/27/2020 01:30:00 PM EST MEDENT ([facility]) ( [place]) [facility] Post Op [address] [place] [address] 04/24/2020 12:00:00 AM EST eCW1 ([facility]) Outpatient [address] [facility] [address] 04/19/2020 12:00:00 AM EST eCW1 ([facility]) Unknown [address] [facility] [place] [address] 04/19/2020 12:00:00 AM EST [facility]CW1 [facility]) Unknown [address] [facility] [place] [address] 04/17/2020 12:00:00 AM EST [facility]CW1 [facility]) Unknown [address] [facility] [place] [address] 04/13/2020 12:00:00 AM EST eCW1 [facility]) Outpatient Attender: [place] Chavessuant: PHYSICIAN NO N-STAFF 04/12/2020 04:52:00 PM EST - 04/12/2020 05:52:00 PM EST [facility] Outpatient Attender: Ky RODRIGUEZ [facility] 04/12/2020 02:30:00 PM EST MEDENT ([facility]) ([facility]) [facility] Nurse Visit [address] [place] [address] 02/25/2020 12:00:00 AM EST eCW1 ([facility]) Outpatient Attender: Ky RODRIGUEZ [facility] 02/18/2020 12:40:00 PM EST MEDENT ([facility]) Outpatient Attender: Ky RODRIGUEZ [facility] 01/31/2020 12:30:00 PM EST MEDENT ([facility]) Outpatient Attender: Jesus Manuel Barrera/Ivette/Paulo/Daniel ndl 01/04/2020 03:30:00 PM EDT MEDENT ([facility]) Outpatient Attender: Ky RODRIGUEZ [facility] 12/30/2019 01:00:00 PM EDT MEDENT ([facility]) Immunizations Vaccine Date Status Description Data Source(s) COVID-19 VACCINE Moderna 01/23/2021 12:00:00 AM EST completed [place] Vaccine Series Complete: YESThis Data wa s Submitted to [facility] Via [employer]. COVID-19 VACCINE Moderna 11/16/2020 12:00:00 AM EDT completed [place] Vaccine Series Complete: NOThis Data was Submitted to [facility] Via [employer]. 05/12/2020 10:27:00 AM EST completed e CW1 ([facility]) 05/12/2020 10:27:00 AM EST completed e CW1 ([facility]) 05/12/2020 10:27:00 AM EST completed e CW1 ([facility]) 05/12/2020 10:27:00 AM EST completed e CW1 ([facility]) 05/12/2020 10:27:00 AM EST completed e CW1 ([facility]) 05/12/2020 10:27:00 AM EST completed e CW1 ([facility]) 05/12/2020 10:27:00 AM EST completed e CW1 ([facility]) 05/12/2020 10:27:00 AM EST completed e CW1 ([facility]) 05/12/2020 10:27:00 AM EST completed e CW1 ([facility]) 02/25/2020 10:37:00 AM EST completed e CW1 ([facility]) 02/25/2020 10:37:00 AM EST completed e CW1 ([facility]) 02/25/2020 10:37:00 AM EST completed e CW1 ([facility]) 02/25/2020 10:37:00 AM EST completed e CW1 ([facility]) 02/25/2020 10:37:00 AM EST completed e CW1 ([facility]) 02/25/2020 10:37:00 AM EST completed e CW1 ([facility]) 02/25/2020 10:37:00 AM EST completed e CW1 ([facility]) 02/25/2020 10:37:00 AM EST completed e CW1 ([facility]) 02/25/2020 10:37:00 AM EST completed e CW1 ([facility]) 02/25/2020 10:37:00 AM EST completed e CW1 ([facility]) 02/25/2020 10:37:00 AM EST completed e CW1 ([facility]) 02/25/2020 10:37:00 AM EST completed e CW1 ([facility]) 02/25/2020 10:37:00 AM EST completed e CW1 ([facility]) 02/25/2020 10:37:00 AM EST completed e CW1 ([facility]) 02/25/2020 10:37:00 AM EST completed e CW1 ([facility]) New in 2011. IIV4 01/31/2020 01:00:00 PM EST completed MEDENT ([facility]) Medications Medication Brand Name Start Date Product Form Dose Route Admi nistrative Instructions Pharmacy Instructions Status Indications Reaction Description Data Source(s) Sulfamethoxazole 800 MG / Trimethoprim 160 MG Oral Tablet [B actrim] Bactrim DS 09/27/2020 12:00:00 AM EDT ORAL active MEDENT ([facility]) Sulfamethoxazole 800 MG / Trimethoprim 160 MG Oral Tablet [B actrim] Bactrim DS 06/26/2020 12:00:00 AM EDT ORAL completed MEDENT ([facility]) pantoprazole 40 MG Delayed Release Oral Tablet Pantoprazole Sodium 06/16/2020 12:00:00 AM EDT active M EDENT ([facility], ) Tretinoin 0.25 MG/ML Topical Cream Tretinoin 04/29/2020 12:00:00 AM EST active MEDENT ([facility]) Ibuprofen 800 MG Oral Tablet Ibuprofen 04/21/2020 12:00:00 AM EST ORAL active MEDENT ([facility]) Sulfamethoxazole 800 MG / Trimethoprim 160 MG Oral Tablet [B actrim] Bactrim DS 04/12/2020 12:00:00 AM EST ORAL completed MEDENT ([facility]) 24 HR Bupropion Hydrochloride 150 MG Extended Release Oral Tablet Bupropion Hydrochloride ER (XL) 02/18/2020 12:00:00 AM EST ORAL c ompleted MEDENT ([facility]) 24 HR venlafaxine 37.5 MG Extended Release Oral Capsule [Eff exor] Effexor XR 01/31/2020 12:00:00 AM EST ORAL completed MEDENT ([facility]) Sucralfate 100 MG/ML Oral Suspension [Carafate] Carafate 12/30/2019 12:00:00 AM EDT ORAL completed MEDENT ([facility]) 24 HR Amphetamine aspartate 5 MG / Amphe tamine Sulfate 5 MG / Dextroamphetamine saccharate 5 MG / Dextroamphetamine Sulfate 5 MG Extended Release Oral Capsule [Adderall] Adderall XR 12/30/2019 12:00:00 AM EDT ORAL active MEDENT ([facility]) pantoprazole 40 MG Delayed Release Oral Tablet [Protonix] Pr otonix 12/30/2019 12:00:00 AM EDT ORAL active M EDENT ([facility]) Insurance Providers Payer name Policy type / Coverage type Policy ID Covered republican ID Covered republican's relationship to arango Policy Arango Plan Information [facility] [id number] [facility] [id number] [facility] [id number] [facility] [id number] [facility] - [facility]/P [id number] 01 [id number] O UNAVAILABLE UNAVAILA BLE [facility] [facility] O [id number] S [id number] [facility] 2017 Commercial [id number] Family Dependent [id number] [facility] 2017 Commercial [id number] Family Dependent [id number] [facility] (2017) Health Maintenance Organization (HMO) [id number] Family Dependent [id number] [place] [id number] Commercial [id number] Family Dependent [id number] [facility] (2017) Health Maintenance Organization (HMO) [id number] Family Dependent [id number] SELF PAY O UNAVAILABLE S UNAVAILA BLE SELF PAY ONLY [id number] SP [id number] [facility] [id number] [facility] [id number] [facility] [id number] [facility] [id number] [facility] [id number] Family Dependent [id number] Problems, Conditions, and Diagnoses Code Display Name Description Problem Type Effective Dates Data Source(s) F43.20 Adjustment disorder, unspecified ADJUSTMENT DISO RDER, UNSPECIFIED Diagnosis 08/30/2020 05:00:00 PM [facility] F41.9 Anxiety disorder, unspecified ANXIETY DISORDER, UNSPEC IFIED Diagnosis 08/30/2020 05:00:00 PM [facility] F31.9 Bipolar disorder, unspecified BIPOLAR DISORDER, UNSPEC IFIED Diagnosis 08/30/2020 05:00:00 PM [facility] F43.10 Post-traumatic stress disorder, unspecif ied POST-TRAUMATIC STRESS DISORDER, UNSPECIFIED Diagnosis 08/30/2020 05:00:00 PM [facility] Dodie livingston G43.009 Migraine without aura, not intractable, without status migrainosus MIGRAINE W/O AURA, NOT INTRACTABLE, W/O STATUS AISHA Diagnosis 03:00:00 PM [facility] F32.9 Major depressive disorder, single episod e, unspecified MAJOR DEPRESSIVE DISORDER, SINGLE EPISODE, UNSPECI Diagnosis 07/26/2020 05:00:00 PM [facility] F41.1 Generalized anxiety disorder GENERALIZED ANXIETY DISOR LULU Diagnosis 07/26/2020 05:00:00 PM [facility] F39 Unspecified mood [affective] disorder UNSPECIFIE D MOOD [AFFECTIVE] DISORDER Diagnosis 07/13/2020 04:47:00 PM [facility] F31.30 Bipolar disorder, current ep isode depressed, mild or moderate severity, unspecified BIPOLAR DISORD, CRNT EPSD DEPRESS, MILD OR MOD SEV Diagnosis 06/27/2020 09:28:00 AM [facility] R928 Other abnormal and inconclusive findings on diagnostic imaging of breast Other abnormal and inconclusive findings on diagnostic imaging of breast Diagnosis 04/12/2020 04:52:00 PM [facility] N611 Abscess of the breast and nipple Abscess of the breast and nipple Diagnosis 04/12/2020 04:52:00 PM [facility] Z34.80 care Supervision of other normal P vladimir 01/19/2021 12:00:00 AM EDT eC1 ([facility]) N92.6 Irregular periods Irregular bleeding Problem 01/11/2021 12:00:00 AM EDT eCW1 ([facility]) Z90.11 [id number] Absence of right breast Problem 04/19/2020 1 2:00:00 AM EST [facility] ([facility]) J45.40 Uncomplicated moderate persistent asthma Uncomplicated moderate persistent asthma Problem 12/30/2019 12:00:00 AM EDT CLIFF ([facility]) K21.00 Gastro-esophageal reflux disease with es ophagitis Gastro-esophageal reflux disease with esophagitis Problem 12/30/2019 12:00:00 AM EDT Annemarie SERNA ([facility]) L40.9 Psoriasis Psoriasis Problem 12/30/2019 12:00:00 AM ED T MEDENT ([facility]) Surgeries/Procedures Procedure Description Date Indications Data Source(s) OFFICE OUTPATIENT VISIT 15 MINUTES 10/31/2020 12:00:00 AM EDT MEDENT ([facility]) OFFICE OUTPATIENT VISIT 25 MINUTES 10/09/2020 12:00:00 AM EDT MEDENT ([facility]) OFFICE OUTPATIENT VISIT 15 MINUTES 06/30/2020 12:00:00 AM EDT MEDENT ([facility]) OFFICE OUTPATIENT VISIT 15 MINUTES 06/26/2020 12:00:00 AM EDT MEDENT ([facility]) OFFICE OUTPATIENT VISIT 15 MINUTES 05/25/2020 12:00:00 AM EST MEDENT ([facility]) Injection, medroxyprogesterone acetate for contraceptive use , 150 mg 05/12/2020 12:00:00 AM EST eCW1 ([facility]) Injection, medroxyprogesterone acetate for contraceptive use , 150 mg 02/25/2020 12:00:00 AM EST eCW1 ([facility]) Results ID Date Data Source [id number] 01/31/2021 07:34:00 AM EST MEDENT ([facility]) Name Value Range Interpretation Code Description Data Agnieszka rce(s) Supporting Document(s) Bacteria identified in Urine by Culture Laboratory test result Normal (applies to non-numeric results) [facility] ([facility]) FULL REPORT IN LAB NOTES (eCW and Medent ). NO GROWTH CLINICAL SIGNIFICANCE 2 OR MORE ORGANISMS ID Date Data Source [id number] 01/31/2021 07:34:00 AM EST MEDENT ([facility]) Name Value Range Interpretation Code Description Data Agnieszka rce(s) Supporting Document(s) Chlamydia Dna Amplification Laboratory test result Normal (applies to non- numeric results) [facility] ([facility]) A negative test result does not exclude the possibility of infection because test results may be affected by improper specimen collection, technical error, specimen mix-up, concurrent antibiotic therapy, or the number of organisms in the specimen which may be below the sensitivity of the test. GC Dna Amplification Laboratory test result Norm al (applies to non-numeric results) [facility]) A negative test result does not exclude the possibility of infection because test results may be affected by improper specimen collection, technical error, specimen mix-up, concurrent antibiotic therapy, or the number of organisms in the specimen which may be below the sensitivity of the test. ID Date Data Source [id number] 01/31/2021 07:34:00 AM EST [facility]) Name Value Range Interpretation Code Description Data Agnieszka rce(s) Supporting Document(s) Blood group antibodies identified in Serum or Plasma Laboratory test result Normal (applies to non-numeric results) [facility]) ID Date Data Source [id number] 01/31/2021 07:34:00 AM EST [facility]) Name Value Range Interpretation Code Description Data Agnieszka rce(s) Supporting Document(s) Blood Type Laboratory test result Normal (applies to non-n umeric results) [facility]) AB Screen PNP1 Gel (Vis) Laboratory test result Normal (applies to non- numeric results) [facility]) ID Date Data Source [id number] 01/31/2021 07:34:00 AM EST [facility]) Name Value Range Interpretation Code Description Data Agnieszka rce(s) Supporting Document(s) Hepatitis B virus surface Ag [Presence] in Serum or Pl asma by Immunoassay Laboratory test result Normal (applies to non-numeric results) [facility]) <content>note:<nlbl:demographic_changed> </content>
<content></content> Hepatitis C virus Ab [Units/volume] in Serum by Immunoassay 0.1 INDEX Normal (applies to non-numeric results) [facility]) Negative Not infected with HCV, unless recent infection is suspected or other evidence exists to indicate HCV infection. Reagin Ab [Presence] in Serum by RPR Laboratory test result Normal (applies to non-numeric results) [facility]) <content>note:<nlbl:demographic_changed> </content>
<content></content> Rubella virus IgG Ab [Units/volume] in Serum or Plasma by Immunoassay Laboratory test result Normal (applies to non-numeric results) [facility] ([facility]) THE RUBELLA RESULT WAS OBTAINED WITH THE CENTAUR RUBELLA IGG ASSAY. IgG VALUES FROM ANOTHER MANUFACTURERS' METHOD MAY NOT BE USED INTERCHANGEABLY. MAGNITUDE OF LEVEL CANNOT BE CORRELATED TO AN ENDPOINT TITER. SUSCEPTIBLE 0.00-5.00 IU/ML EQUIVOCAL 5.01-9.99 IU/ML IMMUNE > 10.00 IU/ML HIV 1+2 Ab [Presence] in Serum Laboratory test result Normal (applies to non- numeric results) [facility] ([facility]) <content>This assay was performed utiliz ing a [...] is</content>
<content>99.6-99.8%.</content>
<content></content> ID Date Data Source [id number] 01/31/2021 07:34:00 AM EST [facility] ([facility]) Name Value Range Interpretation Code Description Data Agnieszka rce(s) Supporting Document(s) White Blood Count 9.8 10 4.0-10.0 Normal (applies to non-numeri c results) [facility] ([facility] [facility]) Red Blood Count 4.66 10 4.00-5.40 Normal (applies to non-numeric results) [facility] ([facility]) Hematocrit 42.5 % 36.0-47.0 Normal (applies to non-numeric resul ts) [facility] ([facility]) Hemoglobin 13.6 g/dL 12.0-15.5 Normal (applies to non-numeric resul ts) [facility] Mean Corpuscular Volume 91.2 fl 80.0-96.0 Normal ( applies to non-numeric results) [facility]) Mean Corpuscular Hemoglobin 29.2 pg 27.0-33.0 Norm al (applies to non-numeric results) [facility]) Red Cell Distribution Width 12.1 % 11.5-14.5 Norm al (applies to non-numeric results) [facility] ([facility]) Mean Corpuscular HGB Conc 32.0 g/dL 32.0-36.5 Normal (applies to non-numeric results) [facility] ([facility]) Platelet Count, Automated 337 10 150-450 Normal (applies to non-numeric results) [facility] ([facility]) Nucleated Red Blood Cell % 0.0 % 0-0 Normal (applies to n on-numeric results) [facility] ([facility]) ID Date Data Source SYPHILIS (RPR SCREEN) 01/31/2021 12:00:00 AM EST W1 ([facility]) Name Value Range Interpretation Code Description Data Agnieszka rce(s) Supporting Document(s) NONREACTIVE NONREACTIVE SYPHILIS W1 ([facility]) ID Date Data Source [id number] 01/31/2021 12:00:00 AM EST eCW1 ([facility]) Name Value Range Interpretation Code Description Data Agnieszka rce(s) Supporting Document(s) HIV 1+2 Ab+HIV1 p24 Ag [Presence] in Serum or Plasma by Immu noassay NEGATIVE NEGATIVE HIV 1&2 SCREEN CENTAUR eCW1 ([facility]) ID Date Data Source HEPATITIS C ANTIBODY INDEX 01/31/2021 12:00:00 AM EST eCW1 ( [facility]) Name Value Range Interpretation Code Description Data Agnieszka rce(s) Supporting Document(s) 0.1 <0.8 HEPATITIS C VIRUS PRAVIN INDEX eC W1 ([facility]) ID Date Data Source CBC - Complete Blood Count 01/31/2021 12:00:00 AM EST eCW1 ( [facility]) Name Value Range Interpretation Code Description Data Agnieszka rce(s) Supporting Document(s) 9.8 4.0-10.0 WHITE BLOOD COUNT eCW1 ([facility]) 42.5 36.0-47.0 HEMATOCRIT eCW1 ([facility]) 4.66 4.00-5.40 RED BLOOD COUNT eCW1 ([facility]) 13.6 12.0-15.5 HEMOGLOBIN eCW1 ([facility]) 91.2 80.0-96.0 MEAN CORPUSCULAR VOLUME e CW1 ([facility]) 29.2 27.0-33.0 MEAN CORPUSCULAR HEMOGLOB IN eCW1 ([facility]) 32.0 32.0-36.5 MEAN CORPUSCULAR HGB CONC eCW1 ([facility]) 337 150-450 PLATELET COUNT, AUTOMATED eCW1 ([facility]) 12.1 11.5-14.5 RED CELL DISTRIBUTION WID TH eCW1 ([facility]) ID Date Data Source [id number] 01/31/2021 12:00:00 AM EST eCW1 ([facility]) Name Value Range Interpretation Code Description Data Agnieszka rce(s) Supporting Document(s) NEGATIVE NEGATIVE HBsAg eCW1 ([facility]) ID Date Data Source RUBELLA IMMUNE STATUS IgG 01/31/2021 12:00:00 AM EST eCW1 ([facility]) Name Value Range Interpretation Code Description Data Agnieszka rce(s) Supporting Document(s) IMMUNE IMMUNE RUBELLA IgG QUALITATIVE eCW1 ( [facility]) ID Date Data Source [id number] 01/13/2021 02:29:00 PM EDT [facility] ([facility]) Name Value Range Interpretation Code Description Data Agnieszka rce(s) Supporting Document(s) Rh immune globulin screen [interpretation] Laboratory test result [facility] ([facility]) TRANSFUSED PRODUCT: RHOGAM COUNT: 1 ID Date Data Source [id number] 10/09/2020 11:53:00 AM EDT [facility] ([facility]) Name Value Range Interpretation Code Description Data Agnieszka rce(s) Supporting Document(s) Laboratory test finding (navigational concept) Laboratory test result [facility] ([facility]) ID Date Data Source [id number] 10/09/2020 11:53:00 AM EDT [facility] ([facility]) Name Value Range Interpretation Code Description Data Agnieszka rce(s) Supporting Document(s) Glucose [Mass/volume] in Serum or Plasma 124 mg/dL 65-99 Above high normal [facility] ([facility]) Urea nitrogen [Mass/volume] in Serum or Plasma 10 mg/dL 6-20 [facility] ([facility]) Creatinine [Mass/volume] in Serum or Plasma 0.63 mg/dL 0.57-1.00 [facility] ([facility]) eGFR If NonAfricn Am 118 mL/min/1.73 [facility] ([facility]) Urea nitrogen/Creatinine [Mass Ratio] in Serum or Plasma 16 9 -23 [facility] ([facility]) eGFR If Africn Am 136 mL/min/1.73 [facility] ([facility]) [facility] currently reports eGFR in comp liance with the current recommendations of the National Kidney [employer]. [facility] will update reporting as new guidelines are published from the NKF-ASN Task force. Potassium [Moles/volume] in Serum or Plasma 4.2 mmol/L 3.5-5.2 [facility] ([facility]) Sodium [Moles/volume] in Serum or Plasma 139 mmol/L 134-144 [facility] ([facility]) Calcium [Mass/volume] in Serum or Plasma 9.6 mg/dL 8.7-10.2 [facility] ([facility]) Carbon dioxide, total [Moles/volume] in Serum or Plasma 23 mmol/L 20 -29 [facility] ([facility]) Chloride [Moles/volume] in Serum or Plasma 105 mmol/L 96-106 [facility] ([facility]) Albumin [Mass/volume] in Serum or Plasma 4.9 g/dL 3.8-4.8 Above high normal [facility] ([facility]) Phosphate [Moles/volume] in Serum or Plasma 3.3 mg/dL 3.0-4.3 [facility] ([facility]) ID Date Data Source [id number] 10/09/2020 11:53:00 AM EDT [facility] ([facility]) Name Value Range Interpretation Code Description Data Agnieszka rce(s) Supporting Document(s) Laboratory test finding (navigational concept) Laboratory test result [facility] ([facility]) ID Date Data Source [id number] 10/09/2020 11:53:00 AM EDT [facility] ([facility]) Name Value Range Interpretation Code Description Data Agnieszka rce(s) Supporting Document(s) Laboratory test finding (navigational concept) Laboratory test result [facility] ([facility]) The QuantiFERON-TB Gold Plus result is d etermined by subtracting the Nil value from either TB antigen (Ag) tube. The mitogen tube serves as a control for the test. Mycobacterium tuberculosis stimulated ga mma interferon [Units/volume] corrected for background in Blood 0.00 IU/ml [facility] ([facility]) Laboratory test finding (navigational concept) Laboratory test result [facility] ([facility]) QuantiFERON TB2 Ag Value 0.00 IU/ml [facility] ([facility]) Laboratory test finding (navigational concept) 0.00 IU/ml [facility] ([facility]) Laboratory test finding (navigational concept) Laboratory test result [facility] ([facility]) The specimen received for QuantiFERON te sting was incubated by the ordering institution. Specific procedures outlined in our Directory of Services and in the package insert for the QuantiFERON Gold (In Tube) test must be followed to enabl e for proper stimulation of cells for the production of interferon gamma. Chemiluminescence immunoassay methodology ID Date Data Source [id number] 10/09/2020 11:53:00 AM EDT [facility] ([facility]) Name Value Range Interpretation Code Description Data Agnieszka rce(s) Supporting Document(s) Protein [Mass/volume] in Serum or Plasma 7.4 g/dL 6.0-8.5 [facility] ([facility]) Bilirubin.total [Mass/volume] in Serum or Plasma 0.2 mg/dL 0.0-1.2 [facility] ([facility]) Bilirubin.conjugated [Mass/volume] in Serum or Plasma 0.08 mg/dL 0.00 -0.40 [facility] ([facility]) Alkaline phosphatase [Enzymatic activity/volume] in Serum or Plasma 82 IU/L 48-121 [facility] ([facility]) Alanine aminotransferase [Enzymatic activity/volume] in Seru m or Plasma 57 IU/L 0-32 Above high normal [facility] ([facility]) Aspartate aminotransferase [Enzymatic activity/volume] in Serum or Plasma 34 IU/L 0-40 [facility] ID Date Data Source [id number] 10/09/2020 11:53:00 AM EDT [facility] ([facility]) Name Value Range Interpretation Code Description Data Agnieszka rce(s) Supporting Document(s) Hepatitis A virus IgM Ab [Units/volume] in Serum by Im munoassay Laboratory test result [facility] Hepatitis B virus core Ab [Presence] in Serum or Plasm a by Immunoassay Laboratory test result [facility] Hepatitis A virus Ab [Presence] in Serum by Immunoassay Labo ratory test result Abnormal (applies to non-numeric results) [facility] ([facility]) Hepatitis B virus core Ab [Presence] in Serum or Plasm a by Immunoassay Laboratory test result [facility]) Non Reactive: Inconsistent with immunity , less than 10 mIU/mL Reactive: Consistent with immunity, greater than 9.9 mIU/mL ID Date Data Source [id number] 10/09/2020 11:53:00 AM EDT [facility] ([facility]) Name Value Range Interpretation Code Description Data Agnieszka rce(s) Supporting Document(s) Leukocytes [#/volume] in Blood by Automated count 8.7 x10E3/uL 3.4-10 .8 [facility] ([facility]) Erythrocytes [#/volume] in Blood by Automated count 4.89 x10E6/uL 3.7 7-5.28 [facility] ([facility]) Hemoglobin [Mass/volume] in Blood 14.3 g/dL 11.1-15.9 [facility] ([facility]) Hematocrit [Volume Fraction] of Blood by Automated count 43.6 % 3 4.0-46.6 [facility] ([facility]) Erythrocyte mean corpuscular volume [Entitic volume] by Auto mated count 89 fL 79-97 [facility] ([facility]) Erythrocyte distribution width [Ratio] by Automated count 12.8 % 11.7-15.4 [facility] ([facility]) Erythrocyte mean corpuscular hemoglobin [Entitic mass] by Automated count 29.2 pg 26.6-33.0 [facility] ([facility]) Erythrocyte mean corpuscular hemoglobin concentration [Mass/volume] by Automated count 32.8 g/dL 31.5-35.7 [facility] ([facility]) Neutrophils/100 leukocytes in Blood by Automated count 59 % [facility] ([facility]) Platelets [#/volume] in Blood by Automated count 416 x10E3/uL 150-450 [facility] ([facility]) Lymphocytes/100 leukocytes in Blood by Automated count 28 % [facility] ([facility]) Eosinophils/100 leukocytes in Blood by Automated count 4 % [facility] ([facility]) Monocytes/100 leukocytes in Blood by Automated count 8 % [facility] ([facility]) Immature cells [#/volume] in Blood Laboratory test result [facility] ([facility]) Basophils/100 leukocytes in Blood by Automated count 1 % [facility] ([facility]) Neutrophils [#/volume] in Blood by Automated count 5.2 x10E3/uL 1.4-7 .0 [facility] ([facility]) Monocytes [#/volume] in Blood 0.7 x10E3/uL 0.1-0.9 [facility] ([facility]) Lymphocytes [#/volume] in Blood 2.4 x10E3/uL 0.7-3.1 [facility] ([facility]) Basophils [#/volume] in Blood by Automated count 0.1 x10E3/uL 0.0-0.2 [facility] ([facility]) Eosinophils [#/volume] in Blood by Automated count 0.3 x10E3/uL 0.0-0 .4 [facility] ([facility]) Immature granulocytes [#/volume] in Blood by Automated count 0.0 x10E3/uL 0.0-0.1 [facility] ([facility]) Immature granulocytes/100 leukocytes in Blood by Automated count 0 % [facility] ([facility]) Nucleated erythrocytes/100 leukocytes [Ratio] in Blood by Automated count Laboratory test result [facility] ([facility]) Morphology [Interpretation] in Blood Narrative Laboratory test result [facility] ([facility]) ID Date Data Source [id number] 09/21/2020 07:12:00 AM EDT [facility] ([facility]) Name Value Range Interpretation Code Description Data Agnieszka rce(s) Supporting Document(s) Laboratory test finding (navigational concept) Laboratory test result [facility] ([facility]) Will treat for 14 days with Bactrim DS ID Date Data Source [id number] 09/21/2020 07:12:00 AM EDT [facility] ([facility]) Name Value Range Interpretation Code Description Data Agnieszka rce(s) Supporting Document(s) Bacteria identified in Unspecified specimen by Culture Laborator y test result Abnormal (applies to non-numeric results) [facility] ([facility]) Will treat for 14 days with Bactrim DS Bacteria identified in Unspecified specimen by Aerobe culture Laboratory test result Abnormal (applies to non-numeric results) [facility] ([facility]) Will treat for 14 days with Bactrim DS Bacteria identified in Unspecified specimen by Culture Laborator y test result [facility] ([facility]) Will treat for 14 days with Bactrim DS Other Antibiotic [Susceptibility] Laboratory test result [facility] ([facility]) Will treat for 14 days with Bactrim DS ID Date Data Source [id number] 09/20/2020 05:33:00 PM EDT [facility] ([facility]) Name Value Range Interpretation Code Description Data Agnieszka rce(s) Supporting Document(s) Bacteria identified in Unspecified specimen by Aerobe culture Laboratory test result [facility] ([facility]) ID Date Data Source [id number] 06/28/2020 10:43:00 PM EDT [facility] ([facility]) Name Value Range Interpretation Code Description Data Agnieszka rce(s) Supporting Document(s) Gram Stain Laboratory test result Normal (applies to non-n umeric results) [facility] ([facility]) FEW WBCS MODERATE RBCS FEW GRAM POSITIVE COCCI IN CLUSTERS Wound Culture Laboratory test result Normal (applies t o non-numeric results) [facility] ([facility]) <content>FULL REPORT IN LAB NOTES (eCW a [...]
<content>CLIDAMYCIN SENSITIVE.</content>
<content></content> ID Date Data Source [id number] 05/26/2020 02:53:00 AM EST [facility] ([facility], ) Name Value Range Interpretation Code Description Data [facility] rce(s) Supporting Document(s) Surgical pathology study Laboratory test result [facility] ([facility], ) FINAL DIAGNOSIS Esophagus, biopsy: Squamous mucosa [...] MD 05/29/2020 [id number] ID Date Data Source [id number] 05/25/2020 11:13:00 PM EST [facility] ([facility]) Name Value Range Interpretation Code Description Data Agnieszka [facility](s) Supporting Document(s) Influenza A Amplification Laboratory test result Normal (applies to non- numeric results) [facility] ([facility]) Negative results do not preclude influen za or RSV virus infection and should not be used as the sole basis for treatment or other patient management decisions. Influenza B Amplification Laboratory test result Normal (applies to non- numeric results) [facility] ([facility]) Negative results do not preclude influen za or RSV virus infection and should not be used as the sole basis for treatment or other patient management decisions. RSV Amplification Laboratory test result Normal (applies to non-numeric results) [facility] ([facility]) Negative results do not preclude influen za or RSV virus infection and should not be used as the sole basis for treatment or other patient management decisions. Laboratory test finding (navigational concept) Laboratory test r esult Normal (applies to non-numeric results) [facility] ([facility]) A false negative result may occur [...] pathogens. DISCLAIMER: Testing was performed using the [employer] SARS-CoV-2 test. This test was developed and its performance characteristics determined by [employer]. This test has not been FDA cleared [...] or revoked sooner. ID Date Data Source [id number] 05/25/2020 11:13:00 PM EST [facility], ) Name Value Range Interpretation Code Description Data Agnieszka rce(s) Supporting Document(s) Influenza B Amplification Laboratory test result Normal (applies to non- numeric results) [facility] ([facility], ) Negative results do not preclude influen za or RSV virus infection and should not be used as the sole basis for treatment or other patient management decisions. Influenza A Amplification Laboratory test result Normal (applies to non- numeric results) [facility] ([facility], ) Negative results do not preclude influen za or RSV virus infection and should not be used as the sole basis for treatment or other patient management decisions. Laboratory test finding (navigational concept) Laboratory test r esult Normal (applies to non-numeric results) [facility] A false negative result may occur [...] pathogens. DISCLAIMER: Testing was performed using the [employer] SARS-CoV-2 test. This test was developed and its performance characteristics determined by [employer]. This test has not been FDA cleared [...] test result Normal (applies to non-numeric results) [facility] ([facility], ) Negative results do not preclude influen za or RSV virus infection and should not be used as the sole basis for treatment or other patient management decisions. ID Date Data Source [id number] 05/25/2020 11:13:00 PM EST [facility] Name Value Range Interpretation Code Description Data Agnieszka rce(s) Supporting Document(s) SARS coronavirus 2 RNA [Presence] in Res piratory specimen by ISSA with probe detection NEGATIVE [facility] This lab was ordered by [facility] a nd reported by [facility]. ID Date Data Source [id number] 05/25/2020 10:19:00 PM EST [facility] ([facility]) Name Value Range Interpretation Code Description Data Agnieszka rce(s) Supporting Document(s) Laboratory test finding (navigational concept) 45.0 % 3 8.0-51.0 Normal (applies to non-numeric results) [facility] ([facility]) Laboratory test finding (navigational concept) 98 mg/dL 7 0-105 Normal (applies to non-numeric results) [facility] ([facility]) Laboratory test finding (navigational concept) 143 meq/L 1 36-145 Normal (applies to non-numeric results) [facility] ([facility]) Laboratory test finding (navigational concept) 4.1 meq/L 3 .5-5.1 Normal (applies to non-numeric results) [facility] ([facility]) Laboratory test finding (navigational concept) 5.0 mg/dL 4 .5-5.3 Normal (applies to non-numeric results) [facility] ([facility]) Laboratory test finding (navigational concept) 106 meq/L 9 8-109 Normal (applies to non-numeric results) [facility] ([facility]) Laboratory test finding (navigational concept) 27.0 MM/L 2 3.0-27.0 Normal (applies to non-numeric results) [facility] ([facility]) Laboratory test finding (navigational concept) 13 mg/dL 8 -26 Normal (applies to non-numeric results) [facility] ([facility]) Laboratory test finding (navigational concept) 0.7 mg/dL 0 .6-1.3 Normal (applies to non-numeric results) [facility] ([facility]) ID Date Data Source [id number] 05/25/2020 09:57:00 PM EST [facility] ([facility]) Name Value Range Interpretation Code Description Data Agnieszka rce(s) Supporting Document(s) Glucose, Fasting 97 mg/dL 70-100 Normal (applies to non-numeric results) [facility] ([facility]) Blood Urea Nitrogen 13 mg/dL 7-18 Normal (applies to non-nume hailey results) [facility] ([facility]) Creatinine For GFR 0.83 mg/dL 0.55-1.30 Normal (applies to non -numeric results) [facility] ([facility]) Glomerular Filtration Rate Laboratory test result Normal (applies to non- numeric results) [facility] ([facility]) <content>Units are mL/min/1.73 m2</content>
<content></content>
<content>Chronic Kidney Disease Staging per NKF:</content>
<content></content>
<content>Stage I & II GFR >=60 Normal to Mildly Decreased</content>
<content>Stage III GFR 30- 59 Moderately Decreased</content>
<content>Stage IV GFR 15-29 Severely Decreased</content>
<content>Stage V GFR <15 Very Little GFR Left</content>
<content>ESRD GFR <15 on GLUE REEL OPERATOR</content>
<content></content> Sodium Level 142 meq/L 136-145 Normal (applies to non-numeric res ults) [facility] ([facility]) Potassium Serum 4.2 meq/L 3.5-5.1 Normal (applies to non-numeric results) [facility] ([facility]) Chloride Level 110 meq/L 98-107 Above high normal [facility] ([facility]) Carbon Dioxide Level 27 meq/L 21-32 Normal (applies to non-num roxie results) [facility] ([facility]) Anion Gap 5 meq/L 8-16 Below low normal [facility] ( [facility]) Calcium Level 9.3 mg/dL 8.5-10.1 Normal (applies to non-numeric re sults) [facility] ([facility]) ID Date Data Source [id number] 05/25/2020 09:57:00 PM EST MED[facility] ([facility]) Name Value Range Interpretation Code Description Data Agnieszka rce(s) Supporting Document(s) Red Blood Count 4.97 10 4.00-5.40 Normal (applies to non-numeric results) [facility] ([facility]) White Blood Count 8.9 10 4.0-10.0 Normal (applies to non-numeri c results) [facility]) Hemoglobin 14.3 g/dL 12.0-15.5 Normal (applies to non-numeric resul ts) [facility]) Hematocrit 44.6 % 36.0-47.0 Normal (applies to non-numeric resul ts) [facility]) Mean Corpuscular Volume 89.7 fl 80.0-96.0 Normal ( applies to non-numeric results) [facility] ([facility]) Mean Corpuscular Hemoglobin 28.8 pg 27.0-33.0 Norm al (applies to non-numeric results) [facility]) Mean Corpuscular HGB Conc 32.1 g/dL 32.0-36.5 Normal (applies to non-numeric results) [facility] ([facility]) Red Cell Distribution Width 13.0 % 11.5-14.5 Norm al (applies to non-numeric results) [facility] ([facility]) Platelet Count, Automated 358 10 150-450 Normal (applies to non-numeric results) [facility] ([facility]) Neutrophils % 51.3 % 36.0-66.0 Normal (applies to non-numeric re sults) [facility] ([facility]) Lymph % 33.4 % 24.0-44.0 Normal (applies to non-numeric resul ts) [facility] ([facility]) Eos % 6.5 % 0.0-3.0 Above high normal [facility] ([facility]) Wilcox % 7.8 % 2.0-8.0 Normal (applies to non-numeric resul ts) [facility] ([facility]) Immature Granulocyte % 0.3 % 0-3.0 Normal (applies to non-n umeric results) [facility] ([facility]) Baso % 0.7 % 0.0-1.0 Normal (applies to non-numeric resul ts) [facility] ([facility]) Nucleated Red Blood Cell % 0.0 % 0-0 Normal (applies to n on-numeric results) [facility] ([facility]) Neutrophils # 4.6 10 1.5-8.5 Normal (applies to non-numeric re sults) [facility] ([facility]) Lymph # 3.0 10 1.5-5.0 Normal (applies to non-numeric resul ts) [facility] ([facility]) Eos # 0.6 10 0.0-0.5 Above high normal [facility] ([facility]) Wilcox # 0.7 10 0.0-0.8 Normal (applies to non-numeric resul ts) [facility] ([facility]) Baso # 0.1 10 0.0-0.2 Normal (applies to non-numeric resul ts) [facility] ([facility]) ID Date Data Source [id number] 04/19/2020 04:17:00 PM EST [facility] ([facility], ) Name Value Range Interpretation Code Description Data Agnieszka rce(s) Supporting Document(s) Blood group antibody screen [Presence] in Serum or Alyssa sma Laboratory test result Normal (applies to non-numeric results) [facility], ) Blood Type Laboratory test result Normal (applies to non-n umeric results) [facility] ([facility]) ID Date Data Source [id number] 04/19/2020 04:17:00 PM EST [facility]) Name Value Range Interpretation Code Description Data Agnieszka rce(s) Supporting Document(s) Blood Type Laboratory test result Normal (applies to non-n umeric results) [facility] ([facility]) AB Screen (Indirect Mekhi)Vis Laboratory test result Normal (applies to non- numeric results) [facility]) ID Date Data Source [id number] 04/19/2020 10:15:00 AM EST [facility] ([facility]) Name Value Range Interpretation Code Description Data Agnieszka rce(s) Supporting Document(s) Laboratory test finding (navigational concept) Laboratory test r esult Normal (applies to non-numeric results) [facility] ([facility], ) A false negative result may occur [...] pathogens. DISCLAIMER: Testing was performed using the [employer] SARS-CoV-2 test. This test was developed and its performance characteristics determined by [employer]. This test has not been FDA cleared [...] or revoked sooner. ID Date Data Source [id number] 04/19/2020 10:15:00 AM EST [facility] ([facility], ) Name Value Range Interpretation Code Description Data Agnieszka rce(s) Supporting Document(s) Coronavirus 2019 Nasopharygeal Laboratory test result [facility] ([facility], ) By: SANSHAYAN Time: 1014 Laboratory test finding (navigational concept) Laboratory test r esult Normal (applies to non-numeric results) [facility] ([facility]) A false negative result may occur [...] pathogens. DISCLAIMER: Testing was performed using the [employer] SARS-CoV-2 test. This test was developed and its performance characteristics determined by [employer]. This test has not been FDA cleared [...] or revoked sooner. ID Date Data Source [id number] 04/19/2020 10:15:00 AM EST [facility] ([facility]) Name Value Range Interpretation Code Description Data Agnieszka rce(s) Supporting Document(s) Laboratory test finding (navigational concept) Laboratory test r esult Normal (applies to non-numeric results) [facility] ([facility]) A false negative result may occur [...] pathogens. DISCLAIMER: Testing was performed using the [employer] SARS-CoV-2 test. This test was developed and its performance characteristics determined by [employer]. This test has not been FDA cleared [...] or revoked sooner. ID Date Data Source [id number] 04/19/2020 10:15:00 AM [facility] Name Value Range Interpretation Code Description Data Agnieszka rce(s) Supporting Document(s) SARS coronavirus 2 RNA [Presence] in Res piratory specimen by ISSA with probe detection NEGATIVE [facility] This lab was ordered by [facility] a nd reported by [facility]. ID Date Data Source [id number] 04/14/2020 11:16:00 AM [facility] [address] [place] [address] PHONE: [phone] FAX: [phone] Name .................. : DIMPLE Massey Acct Number.................. : [id number] ROOM. ................. : MR Number ................... : [id number] Stay type ............. : O/P Discharge Date......... ... : 04/12/20 Admit Date ......... : 04/12/20 Admit Phys .................... : FAITH SEGUNDO Date of ....... : 1985 Family Phys ................... : NONSTAFF Phone .................. : [phone] Age ................................ : 34 Film# .................. .[id number] Sex ................................. : F Unsigned transcriptions are preliminary reports and do not represent a medical or legal document BREAST RIGHT [id number] COMPLETE:04/12/20 20:00 ADB 3090 (TEST REASON: PAIN [...] for: FAITH MCPHERSON via fax Copy for: [address] [place] [address] REC Page 1 of 1 Name Value Range Interpretation Code Description Data Agnieszka rce(s) Supporting Document(s) ID Date Data Source [id number] 04/14/2020 11:16:00 AM EST [facility] [address] [place] [address] PHONE: [phone] FAX: [phone] Name .................. : DIMPLE Massey Acct Number.................. : [id number] ROOM. ................. : MR Number ................... : [id number] Stay type ............. : O/P Discharge Date......... ... : 04/12/20 Admit Date ......... : 04/12/20 [facility].... [facility] Date of ....... : 1985 Family Phys ................... : NONSTAFF Phone .................. : [phone] Age ................................ : 34 Film# .................. .[id number] Sex ................................. : F Unsigned transcriptions are preliminary reports and do not represent a medical or legal document US BREAST LEFT [id number] COMPLETE:04/12/20 20:00 ADB 2027 (TEST REASON: DRAINAGE OF PUS FROM LEFT [...] for: FAITH MCPHERSON via fax Copy for: [facility] MED REC Page 1 of 1 Name Value Range Interpretation Code Description Data Agnieszka rce(s) Supporting Document(s) ID Date Data Source [id number] 04/12/2020 04:02:00 PM EST [facility] ([facility]) Name Value Range Interpretation Code Description Data Agnieszka rce(s) Supporting Document(s) Bacteria identified in Wound shallow by Aerobe culture Laborator y test result Normal (applies to non-numeric results) [facility] ([facility]) <content>FULL REPORT IN LAB NOTES (eCW a [...] completed Never S moker eCW1 ([facility]) Smoking 01/23/2021 12:00:00 AM EST Never Smoker completed Never S moker eCW1 ([facility]) Smoking 07/31/2020 12:00:00 AM EDT Never Smoker completed Never S moker eCW1 ([facility]) Smoking 07/31/2020 12:00:00 AM EDT Never Smoker completed Never S moker eCW1 ([facility]) Smoking 07/31/2020 12:00:00 AM EDT Never Smoker completed Never S moker eCW1 ([facility]) Smoking 07/31/2020 12:00:00 AM EDT Never Smoker completed Never S moker eCW1 ([facility]) Smoking 07/31/2020 12:00:00 AM EDT Never Smoker completed Never S moker eCW1 ([facility]) Smoking 05/01/2020 12:00:00 AM EST Never Smoker completed Never S moker eCW1 ([facility]) Smoking 05/01/2020 12:00:00 AM EST Never Smoker completed Never S moker eCW1 ([facility]) Smoking 05/01/2020 12:00:00 AM EST Never Smoker completed Never S moker eCW1 ([facility]) Smoking 05/01/2020 12:00:00 AM EST Never Smoker completed Never S moker eCW1 ([facility]) Smoking 05/01/2020 12:00:00 AM EST Never Smoker completed Never S moker eCW1 ([facility]) Smoking 04/24/2020 12:00:00 AM EST Never Smoker completed Never S moker eCW1 ([facility]) Smoking 04/19/2020 12:00:00 AM EST Never Smoker completed Never S moker eCW1 ([facility]) Vital Signs ID Date Data Source [id number] Name Value Range Interpretation Code Description Data Source(s) Body weight 162.6 [lb_av] 162.6 [lb_av] eCW1 ([facility]) Body height 65 [in_i] 65 [in_i] eCW1 ([facility]) Body mass index (BMI) [Ratio] 27.058 kg/m2 27.0 58 kg/m2 eCW1 ([facility]) Systolic blood pressure 122 mm[Hg] 122 mm[Hg] e CW1 ([facility]) Diastolic blood pressure 74 mm[Hg] 74 mm[Hg] eCW1 ([facility]) Systolic blood pressure 128 mm[Hg] 128 mm[Hg] M EDENT ([facility]) Diastolic blood pressure 72 mm[Hg] 72 mm[Hg] [facility] ([facility]) Body height 66 [in_i] 66 [in_i] [facility] ([facility]) 5'6" Body weight 166.38 [lb_av] 166.38 [lb_av] MEDEN T ([facility]) Body mass index (BMI) [Ratio] 26.9 kg/m2 26.9 k g/m2 [facility] ([facility]) Heart rate 97 /min 97 /min [facility] ([facility]) Respiratory rate 14 /min 14 /min [facility]) Body temperature 98.5 [degF] 98.5 [degF] [facility] Oxygen saturation in Arterial blood by Pulse oximetry 99 % 99 % [facility] ([facility]) [place] body weight 130 [lb_av] 130 [lb_av] MEDEN T ([facility]) Respiratory rate 18 /min 18 /min [facility] ( [facility]) Systolic blood pressure 122 mm[Hg] 122 mm[Hg] M EDENT ([facility]) Diastolic blood pressure 72 mm[Hg] 72 mm[Hg] [facility] ([facility]) Respiratory rate 18 /min 18 /min [facility] ( [facility]) Body weight 167 [lb_av] 167 [lb_av] eCW1 ([facility]) Body weight 75.75 kg 75.75 kg eCW1 ([facility]) Body height 65 [in_i] 65 [in_i] eCW1 ([facility]) Body mass index (BMI) [Ratio] 27.79 kg/m2 27.79 kg/m2 [facility] ([facility]) Heart rate 87 /min 87 /min eCW1 ([facility]) Body temperature 97.4 [degF] 97.4 [degF] eCW1 ( [facility]) Systolic blood pressure 130 mm[Hg] 130 mm[Hg] e CW1 ([facility]) Diastolic blood pressure 82 mm[Hg] 82 mm[Hg] eCW1 ([facility]) Body weight 168.00 [lb_av] 168.00 [lb_av] MEDEN T ([facility]) Body mass index (BMI) [Ratio] 27.1 kg/m2 27.1 k g/m2 [facility] ([facility]) Heart rate 87 /min 87 /min [facility] ([facility]) Respiratory rate 20 /min 20 /min [facility] ( [facility]) Systolic blood pressure 130 mm[Hg] 130 mm[Hg] M EDENT ([facility]) Diastolic blood pressure 80 mm[Hg] 80 mm[Hg] [facility] ([facility]) Body height 66 [in_i] 66 [in_i] [facility] ([facility]) 5'6" Body temperature 99.9 [degF] 99.9 [degF] [facility] ([facility]) Oxygen saturation in Arterial blood by Pulse oximetry 98 % 98 % [facility] ([facility]) [place] body weight 130 [lb_av] 130 [lb_av] MEDEN T ([facility]) Body weight 169.38 [lb_av] 169.38 [lb_av] MED[facility] T ([facility]) Body mass index (BMI) [Ratio] 27.3 kg/m2 27.3 k g/m2 [facility] ([facility]) Systolic blood pressure 122 mm[Hg] 122 mm[Hg] M EDENT ([facility]) Respiratory rate 18 /min 18 /min [facility] ( [facility]) [place] body weight 130 [lb_av] 130 [lb_av] MEDEN T ([facility]) Diastolic blood pressure 72 mm[Hg] 72 mm[Hg] [facility] ([facility]) Body height 66 [in_i] 66 [in_i] [facility] ([facility]) 5'6" Heart rate 96 /min 96 /min [facility]) Body temperature 98.9 [degF] 98.9 [degF] [facility] ([facility]) Oxygen saturation in Arterial blood by Pulse oximetry 97 % 97 % [facility] ([facility]) [place] body weight 130 [lb_av] 130 [lb_av] MEDEN T ([facility], ) Systolic blood pressure 128 mm[Hg] 128 mm[Hg] M EDENT ([facility], ) Diastolic blood pressure 68 mm[Hg] 68 mm[Hg] [facility] ([facility], ) Heart rate 84 /min 84 /min [facility] ) Respiratory rate 16 /min 16 /min [facility] ( [facility], ) Body temperature 97.8 [degF] 97.8 [degF] [facility] ([facility], ) Body height 66 [in_i] 66 [in_i] [facility] ([facility], ) 5'6" Oxygen saturation in Arterial blood by Pulse oximetry 99 % 99 % [facility]) Systolic blood pressure 114 mm[Hg] 114 mm[Hg] M EDENT ([facility]) Diastolic blood pressure 72 mm[Hg] 72 mm[Hg] [facility] ([facility]) Body height 66 [in_i] 66 [in_i] [facility] ([facility]) 5'6" Body weight 166.38 [lb_av] 166.38 [lb_av] MEDEN T ([facility]) Body mass index (BMI) [Ratio] 26.9 kg/m2 26.9 k g/m2 [facility] ([facility]) Heart rate 104 /min 104 /min [facility] ([facility]) [place] body weight 130 [lb_av] 130 [lb_av] MEDEN T ([facility]) Respiratory rate 18 /min 18 /min [facility] ( [facility]) Body temperature 99.2 [degF] 99.2 [degF] [facility] ([facility]) [place] body weight 130 [lb_av] 130 [lb_av] MEDEN T ([facility]) Systolic blood pressure 126 mm[Hg] 126 mm[Hg] M EDENT ([facility]) Diastolic blood pressure 74 mm[Hg] 74 mm[Hg] [facility] ([facility]) Heart rate 88 /min 88 /min [facility]) Respiratory rate 16 /min 16 /min [facility] ( [facility]) Body height 66 [in_i] 66 [in_i] [facility]) 5'6" Body weight 164.00 [lb_av] 164.00 [lb_av] MEDEN T ([facility]) Body mass index (BMI) [Ratio] 26.5 kg/m2 26.5 k g/m2 [facility] ([facility]) Body weight 74.390 kg 74.390 kg [facility] ([facility]) Body surface area Derived from formula 1.84 m2 1.84 m2 [facility] ([facility]) Respiratory rate 20 /min 20 /min eCW1 ([facility]) Body temperature 97.9 [degF] 97.9 [degF] eCW1 ( [facility]) Systolic blood pressure 120 mm[Hg] 120 mm[Hg] e CW1 ([facility]) Diastolic blood pressure 84 mm[Hg] 84 mm[Hg] eCW1 ([facility]) Body weight 163 [lb_av] 163 [lb_av] eCW1 ([facility]) Body weight 73.94 kg 73.94 kg eCW1 ([facility]) Body height 65 [in_i] 65 [in_i] eCW1 ([facility]) Body mass index (BMI) [Ratio] 27.12 kg/m2 27.12 kg/m2 [facility] ([facility]) Heart rate 97 /min 97 /min eCW1 ([facility]) Systolic blood pressure 124 mm[Hg] 124 mm[Hg] M EDENT ([facility]) Diastolic blood pressure 74 mm[Hg] 74 mm[Hg] [facility] ([facility]) Body weight 165.00 [lb_av] 165.00 [lb_av] MEDEN T ([facility]) Heart rate 106 /min 106 /min [facility] ([facility]) Oxygen saturation in Arterial blood by Pulse oximetry 98 % 98 % [facility]) Body height 66 [in_i] 66 [in_i] [facility] ([facility]) 5'6" Body mass index (BMI) [Ratio] 26.6 kg/m2 26.6 k g/m2 [facility] ([facility]) Respiratory rate 18 /min 18 /min [facility] ( [facility]) Body temperature 99.3 [degF] 99.3 [degF] [facility] ([facility]) [place] body weight 130 [lb_av] 130 [lb_av] MEDEN T ([facility]) Body weight 163 [lb_av] 163 [lb_av] eCW1 ([facility]) Body temperature 98.1 [degF] 98.1 [degF] eCW1 ( [facility]) Body weight 73.94 kg 73.94 kg eCW1 ([facility]) Systolic blood pressure 106 mm[Hg] 106 mm[Hg] e CW1 ([facility]) Diastolic blood pressure 78 mm[Hg] 78 mm[Hg] eCW1 ([facility]) Body height 65 [in_i] 65 [in_i] eCW1 ([facility]) Body mass index (BMI) [Ratio] 27.12 kg/m2 27.12 kg/m2 eCW1 ([facility]) Heart rate 83 /min 83 /min eCW1 ([facility]) Respiratory rate 18 /min 18 /min eCW1 ([facility]) Body weight 166 [lb_av] 166 [lb_av] eCW1 ([facility]) Body weight 75.3 kg 75.3 kg eCW1 ([facility]) Body height 65 [in_i] 65 [in_i] eCW1 ([facility]) Body mass index (BMI) [Ratio] 27.62 kg/m2 27.62 kg/m2 eCW1 ([facility]) Heart rate 102 /min 102 /min eCW1 ([facility]) Respiratory rate 18 /min 18 /min eCW1 ([facility]) Body temperature 98.4 [degF] 98.4 [degF] eCW1 ( [facility]) Systolic blood pressure 108 mm[Hg] 108 mm[Hg] e CW1 ([facility]) Diastolic blood pressure 68 mm[Hg] 68 mm[Hg] eCW1 ([facility]) Body weight 166 [lb_av] 166 [lb_av] eCW1 ([facility]) Body weight 75.3 kg 75.3 kg eCW1 ([facility]) Body height 65 [in_i] 65 [in_i] eCW1 ([facility]) Body mass index (BMI) [Ratio] 27.62 kg/m2 27.62 kg/m2 eCW1 ([facility]) Heart rate 102 /min 102 /min eCW1 ([facility]) Respiratory rate 18 /min 18 /min eCW1 ([facility]) Body temperature 98.4 [degF] 98.4 [degF] eCW1 ( [facility]) Systolic blood pressure 108 mm[Hg] 108 mm[Hg] e CW1 ([facility]) Diastolic blood pressure 68 mm[Hg] 68 mm[Hg] eCW1 ([facility]) Heart rate 99 /min 99 /min [facility] ([facility]) Body mass index (BMI) [Ratio] 26.3 kg/m2 26.3 k g/m2 [facility] ([facility]) Respiratory rate 18 /min 18 /min [facility] ( [facility]) Body temperature 99.8 [degF] 99.8 [degF] [facility] ([facility]) Oxygen saturation in Arterial blood by Pulse oximetry 121 % 121 % [facility]) Systolic blood pressure 138 mm[Hg] 138 mm[Hg] M EDENT ([facility]) Diastolic blood pressure 87 mm[Hg] 87 mm[Hg] [facility] ([facility]) Body height 66 [in_i] 66 [in_i] MEDENT ([facility]) 5'6" Body weight 163.00 [lb_av] 163.00 [lb_av] MEDEN T ([facility]) [place] body weight 130 [lb_av] 130 [lb_av] MEDEN T ([facility]) Diastolic blood pressure 64 mm[Hg] 64 mm[Hg] MED[facility] ([facility]) Systolic blood pressure 122 mm[Hg] 122 mm[Hg] [facility] Body height 66 [in_i] 66 [in_i] MEDENT ([facility]) 5'6" Body weight 164.00 [lb_av] 164.00 [lb_av] MEDEN T ([facility]) [place] body weight 130 [lb_av] 130 [lb_av] MEDEN T ([facility]) Body mass index (BMI) [Ratio] 26.5 kg/m2 26.5 k g/m2 [facility] ([facility]) Heart rate 103 /min 103 /min [facility] ([facility]) Respiratory rate 18 /min 18 /min [facility] ( [facility]) Body temperature 98.9 [degF] 98.9 [degF] [facility] ([facility]) Oxygen saturation in Arterial blood by Pulse oximetry 96 % 96 % [facility] Systolic blood pressure 112 mm[Hg] 112 mm[Hg] M [facility]ENT ([facility]) Diastolic blood pressure 70 mm[Hg] 70 mm[Hg] [facility] ([facility]) Body height 66 [in_i] 66 [in_i] [facility] ([facility]) 5'6" Body weight 166.38 [lb_av] 166.38 [lb_av] [facility] T ([facility]) Body mass index (BMI) [Ratio] 26.9 kg/m2 26.9 k g/m2 [facility] ([facility]) Heart rate 99 /min 99 /min [facility] Respiratory rate 18 /min 18 /min [facility] ( [facility]) Body temperature 99.0 [degF] 99.0 [degF] [facility] ([facility]) Oxygen saturation in Arterial blood by Pulse oximetry 99 % 99 % [facility] ([facility]) [place] body weight 130 [lb_av] 130 [lb_av] [facility] T ([facility]) Diastolic blood pressure 60 mm[Hg] 60 mm[Hg] [facility] ([facility]) Body height 66 [in_i] 66 [in_i] [facility] ([facility]) 5'6" Body weight 162.00 [lb_av] 162.00 [lb_av] [facility] ([facility]) Systolic blood pressure 120 mm[Hg] 120 mm[Hg] [facility] ([facility]) Body mass index (BMI) [Ratio] 26.1 kg/m2 26.1 k g/m2 [facility] ([facility]) [place] body weight 130 [lb_av] 130 [lb_av] [facility] Body weight 73.483 kg 73.483 kg [facility] ([facility]) Body surface area Derived from formula 1.83 m2 1.83 m2 [facility] ([facility]) Body weight 158.38 [lb_av] 158.38 [lb_av] [facility] T ([facility]) Body height 66 [in_i] 66 [in_i] [facility] ([facility]) 5'6" Heart rate 66 /min 66 /min [facility] ([facility]) Body temperature 99.1 [degF] 99.1 [degF] [facility] Oxygen saturation in Arterial blood by Pulse oximetry 97 % 97 % [facility] ([facility]) [place] body weight 130 [lb_av] 130 [lb_av] [facility] T ([facility]) Systolic blood pressure 114 mm[Hg] 114 mm[Hg] M DAPHNE ([facility]) Diastolic blood pressure 68 mm[Hg] 68 mm[Hg] [facility] ([facility]) Body mass index (BMI) [Ratio] 25.6 kg/m2 25.6 k g/m2 [facility] ([facility]) Respiratory rate 18 /min 18 /min [facility] ( [facility])
== END 2021-02-16 16:04 | disposition left against medical advice (07) ==
LOC: M ED 15:19
DX: Z53.29 Procedure and treatment not carried out because of patient's decision for other reasons (principal)

== ENCOUNTER 2021-02-17 00:49 | Emergency (ER) | payer OTHER ==
[~2021-02-17] VITALS: Ht 167.6 cm; Wt 75.0 kg
[2021-02-17 00:49] VITALS: BP 130/62
--- OUTSIDE RECORDS SUMMARY | 2021-02-17 00:57 | CCD ---
Author Author [facility] Organization [facility] Address Unknown Phone Unavailable Care Team Providers Care Sap Senior Developer Name Role Phone NON-STAFF, PHYSICIAN Unavailable Unavailable SonjaPamella chino OCCUPATIONAL SAFETY AND HEALTH MANAGER Unavailable Unavailable Sonja, Pamella Ken OCCUPATIONAL SAFETY AND HEALTH MANAGER Unavailable Unavailable Sonja, Pamella Ken OCCUPATIONAL SAFETY AND HEALTH MANAGER Unavailable Unavailable Sonja, Pamella Ken OCCUPATIONAL SAFETY AND HEALTH MANAGER Unavailable Unavailable Marbury, Pamella Ken OCCUPATIONAL SAFETY AND HEALTH MANAGER Unavailable Unavailable [place], Pamella Ken OCCUPATIONAL SAFETY AND HEALTH MANAGER Unavailable Unavailable Sonja, Pamella Ken OCCUPATIONAL SAFETY AND HEALTH MANAGER Unavailable Unavailable Sonja, Pamella Ken OCCUPATIONAL SAFETY AND HEALTH MANAGER Unavailable Unavailable [place], Pamella Ken OCCUPATIONAL SAFETY AND HEALTH MANAGER Unavailable Unavailable [place], Pamella Ken OCCUPATIONAL SAFETY AND HEALTH MANAGER Unavailable Unavailable [place], Pamella Jesus Manuel OCCUPATIONAL SAFETY AND HEALTH MANAGER Unavailable Unavailable [place], Pamella Ken OCCUPATIONAL SAFETY AND HEALTH MANAGER Unavailable Unavailable [place], Pamella Jesus Manuel OCCUPATIONAL SAFETY AND HEALTH MANAGER Unavailable Unavailable [place], Pamella Jesus Manuel OCCUPATIONAL SAFETY AND HEALTH MANAGER Unavailable Unavailable Jean Claude LILLY Unavailable Unavailable [...] CHELSEA DO Unavailable Unavailable Duvall, A Phyl OCCUPATIONAL SAFETY AND HEALTH MANAGER-BC Unavailable Unavailable Duvall, A Phyl OCCUPATIONAL SAFETY AND HEALTH MANAGER-BC Unavailable Unavailable Duvall, A Phyl OCCUPATIONAL SAFETY AND HEALTH MANAGER-BC Unavailable Unavailable Duvall, A Phyl OCCUPATIONAL SAFETY AND HEALTH MANAGER-BC Unavailable Unavailable Duvall, A Phyl OCCUPATIONAL SAFETY AND HEALTH MANAGER-BC Unavailable Unavailable Duvall, A Phyl OCCUPATIONAL SAFETY AND HEALTH MANAGER-BC Unavailable Unavailable Duvall, A Phyl OCCUPATIONAL SAFETY AND HEALTH MANAGER-BC Unavailable Unavailable Duvall, A Phyl OCCUPATIONAL SAFETY AND HEALTH MANAGER-BC Unavailable Unavailable Duvall, A Phyl OCCUPATIONAL SAFETY AND HEALTH MANAGER-BC Unavailable Unavailable Duvall, A Phyl OCCUPATIONAL SAFETY AND HEALTH MANAGER-BC Unavailable Unavailable Duvall, A Phyl OCCUPATIONAL SAFETY AND HEALTH MANAGER-BC Unavailable Unavailable Duvall, A Phyl OCCUPATIONAL SAFETY AND HEALTH MANAGER-BC Unavailable Unavailable Duvall, A Phyl OCCUPATIONAL SAFETY AND HEALTH MANAGER-BC Unavailable Unavailable Duvall, A Phyl OCCUPATIONAL SAFETY AND HEALTH MANAGER-BC Unavailable Unavailable Duvall, A Phyl OCCUPATIONAL SAFETY AND HEALTH MANAGER-BC Unavailable Unavailable Duvall, A Phyl OCCUPATIONAL SAFETY AND HEALTH MANAGER-BC Unavailable Unavailable Duvall, A Phyl OCCUPATIONAL SAFETY AND HEALTH MANAGER-BC Unavailable Unavailable Duvall, A Phyl OCCUPATIONAL SAFETY AND HEALTH MANAGER-BC Unavailable Unavailable Duvall, A Phyl OCCUPATIONAL SAFETY AND HEALTH MANAGER-BC Unavailable Unavailable Duvall, A Phyl OCCUPATIONAL SAFETY AND HEALTH MANAGER-BC Unavailable Unavailable Duvall, A Phyl OCCUPATIONAL SAFETY AND HEALTH MANAGER-BC Unavailable Unavailable Duvall, A Phyl OCCUPATIONAL SAFETY AND HEALTH MANAGER-BC Unavailable Unavailable Duvall, A Phyl OCCUPATIONAL SAFETY AND HEALTH MANAGER-BC Unavailable Unavailable Duvall, A Phyl OCCUPATIONAL SAFETY AND HEALTH MANAGER-BC Unavailable Unavailable Duvall, A Phyl OCCUPATIONAL SAFETY AND HEALTH MANAGER-BC Unavailable Unavailable Duvall, A Phyl OCCUPATIONAL SAFETY AND HEALTH MANAGER-BC Unavailable Unavailable Duvall, A Phyl OCCUPATIONAL SAFETY AND HEALTH MANAGER-BC Unavailable Unavailable Duvall, A Phyl OCCUPATIONAL SAFETY AND HEALTH MANAGER-BC Unavailable Unavailable Duvall, A Phyl OCCUPATIONAL SAFETY AND HEALTH MANAGER-BC Unavailable Unavailable Duvall, A Phyl OCCUPATIONAL SAFETY AND HEALTH MANAGER-BC Unavailable Unavailable Duvall, A Phyl OCCUPATIONAL SAFETY AND HEALTH MANAGER-BC Unavailable Unavailable Duvall, A Phyl OCCUPATIONAL SAFETY AND HEALTH MANAGER-BC Unavailable Unavailable Aminata, Savana Unavailable Unavailable [...] is protected by Article 27-F of the [facility] Public Health law. If you continue you may have access to information: Regarding HIV / AIDS; Provided by facilities licensed or operated by the [facility] Office of Mental Health; or Provided by the [facility] Office for People With Developmental Disabilities. If such information is present, then the following [facility] mandated warning applies: This information has [...] law may result in a fine or chcf sentence or both. A general authorization for the release of medical or other information is NOT sufficient authorization for further disc losure. Family History Family Member Name Family Member Gender Family Member Status Date o f Status Description Data Source(s) Unknown Female Problem MEDENT ([facility][1]) Unknown Male Problem [facility] Unknown Unknown Problem MEDENT ([facility]) Encounters Encounter Providers Location Date Indications Data Source(s ) Unknown [address] [facility] [address] 02/05/2021 12:00:00 AM EST eCW1 ([facility]) (WC 1PN) WCenter 1st [address] [place] [address] 01/23/2021 12:00:00 AM EST eCW1 ([facility]) Unknown [address] [facility] [place] [address] 01/12/2021 12:00:00 AM EDT eCW1 ([facility]) Unknown [address] [facility] [place] [address] 01/04/2021 12:00:00 AM EDT eCW1 ([facility]) Unknown [address] [facility] [place] [address] 01/03/2021 12:00:00 AM EDT [facility] [address] [facility] [address] 01/01/2021 12:00:00 AM EDT [facility]CW[facility] Outpatient Attender: Ky RODRIGUEZ [facility][1] 10/31/2020 01:00:00 PM EDT [facility] Outpatient Attender: Radha Duvall [facility]- Main Office 0 10/09/2020 11:30:00 AM EDT MEDALYSIA ([facility]) Outpatient Attender: NERI BATES PA-C 08/30/2020 05:00:00 PM [facility] Outpatient Attender: NAUN CARRINGTON FPMHNP 08/24/2020 01:00: 00 PM [facility] Outpatient Attender: Juju Lilly 08/24/2020 10:30:00 AM [facility] Outpatient Attender: Juju Lilly 08/16/2020 04:30:00 PM [facility] Outpatient Attender: Juju Lilly 08/09/2020 04:29:00 PM [facility] Admission cancelled. Disregard status an d admitted date. Outpatient Attender: NAUN ROLDAN 08/09/2020 03:30: 00 PM [facility] Outpatient Attender: Juju Lilly 08/07/2020 02:00:00 PM [facility] Outpatient Attender: Juju Lilly 08/02/2020 04:00:00 PM [facility] Outpatient Attender: Juju Lilly 07/31/2020 06:00:00 PM [facility] Outpatient [address] [facility] [address] 07/31/2020 12:00:00 AM EDT eCW1 ([facility]) Outpatient Attender: NAUN ROLDAN 07/27/2020 03:00: 00 PM [facility] Outpatient Attender: Jjuu Lilly 07/26/2020 05:00:00 PM [facility] Outpatient Attender: Juju Lilly 07/17/2020 09:59:00 AM [facility] Outpatient Attender: NAUN ROLDAN 07/13/2020 04:47: 00 PM [facility] Outpatient Attender: Juju LillyAttender: JUJU LILLY 07/10/2020 10:49:00 AM [facility] Outpatient Attender: Ky RODRIGUEZ [facility] 06/30/2020 01:10:00 PM EDT MEDENT ([facility][1]) Outpatient Attender: Savana Coates 06/27/2020 09:28:00 AM [facility] Outpatient Attender: Ky RODRIGUEZ [facility][1] 06/26/2020 11:00:00 AM EDT MEDENT ([facility]) Outpatient Attender: CHELSEA Kidd/Ivette/Paulo/Cheryl baltazar 06/12/2020 01:00:00 PM EDT MEDENT ([facility]) [place] [address] [facility] [address] 06/09/2020 12:00:00 AM EDT eCW1 ([facility]) Outpatient Attender: Ky RODRIGUEZ [facility] 05/25/2020 01:40:00 PM EST MEDENT ([facility]) Outpatient Attender: CHELSEA Kidd/Ivette/Paulo/Cheryl baltazar 05/15/2020 01:15:00 PM EST MEDENT ([facility]) ( [place]) [facility] Nurse Visit [address] [place] [address] 05/12/2020 12:00:00 AM EST eCW1 ([facility]) Outpatient [address] [facility] [address] 05/01/2020 12:00:00 AM EST [facility] Outpatient Attender: Ky RODRIGUEZ [facility] 04/27/2020 01:30:00 PM EST MEDENT ([facility]) ( PO) [facility] Post Op [address] [place] [address] 04/24/2020 12:00:00 AM EST eCW1 ([facility]) Outpatient [address] [facility] [address] 04/19/2020 12:00:00 AM EST eCW1 ([facility]) Unknown [address] [facility] [place] [address] 04/19/2020 12:00:00 AM EST [facility]CW1 [facility]) Unknown [address] [facility] [place] [address] 04/17/2020 12:00:00 AM EST eCW1 [facility]) Unknown [address] [facility] [place] [address] 04/13/2020 12:00:00 AM EST [facility]CW1 [facility]) Outpatient Attender: [place] Chavessuant: PHYSICIAN NO N-STAFF 04/12/2020 04:52:00 PM EST - 04/12/2020 05:52:[address] [facility] Outpatient Attender: Ky RODRIGUEZ [facility] 04/12/2020 02:30:00 PM EST MEDENT ([facility]) ([facility]) [facility] Nurse Visit [address] [place] [address] 02/25/2020 12:00:00 AM EST eCW1 ([facility]) Outpatient Attender: Ky RODRIGUEZ [facility] 02/18/2020 12:40:00 PM EST MEDENT ([facility]) Outpatient Attender: Ky RODRIGUEZ [facility] 01/31/2020 12:30:00 PM EST MEDENT ([facility]) Outpatient Attender: Jesus Manuel Barrera/Ivette/Paulo/Daniel ndl 01/04/2020 03:30:00 PM EDT MEDENT ([facility]) Outpatient Attender: Ky RODRIGUEZ [facility] 12/30/2019 01:00:00 PM EDT MEDENT ([facility]) Immunizations Vaccine Date Status Description Data Source(s) COVID-19 VACCINE Moderna 01/23/2021 12:00:00 AM EST completed [facility] Vaccine Series Complete: YESThis Data wa s Submitted to [facility]. COVID-19 VACCINE Moderna 11/16/2020 12:00:00 AM EDT completed [place] Vaccine Series Complete: NOThis Data was Submitted to [facility]. 05/12/2020 10:27:00 AM EST completed e CW1 ([facility]) 05/12/2020 10:27:00 AM EST completed e CW1 ([facility]) 05/12/2020 10:27:00 AM EST completed e CW1 ([facility]) 05/12/2020 10:27:00 AM EST completed e CW1 ([facility]) 05/12/2020 10:27:00 AM EST completed e CW1 ([facility]) 05/12/2020 10:27:00 AM EST completed e CW1 ([facility]) 05/12/2020 10:27:00 AM EST completed e CW1 ([facility]) 05/12/2020 10:27:00 AM EST completed e CW1 ([facility]) 05/12/2020 10:27:00 AM EST completed e CW1 ([facility]) 02/25/2020 10:37:00 AM EST completed e CW1 ([facility]) 02/25/2020 10:37:00 AM EST completed e CW1 ([facility]) 02/25/2020 10:37:00 AM EST completed e CW1 ([facility]) 02/25/2020 10:37:00 AM EST completed e CW1 ([facility]) 02/25/2020 10:37:00 AM EST completed e CW1 ([facility]) 02/25/2020 10:37:00 AM EST completed e CW1 ([facility]) 02/25/2020 10:37:00 AM EST completed e CW1 ([facility]) 02/25/2020 10:37:00 AM EST completed e CW1 ([facility]) 02/25/2020 10:37:00 AM EST completed e CW1 ([facility]) 02/25/2020 10:37:00 AM EST completed e CW1 ([facility]) 02/25/2020 10:37:00 AM EST completed e CW1 ([facility]) 02/25/2020 10:37:00 AM EST completed e CW1 ([facility]) 02/25/2020 10:37:00 AM EST completed e CW1 ([facility]) 02/25/2020 10:37:00 AM EST completed e CW1 ([facility]) 02/25/2020 10:37:00 AM EST completed e CW1 ([facility]) New in 2011. IIV4 01/31/2020 01:00:00 PM EST completed MEDENT ([facility][1]) Medications Medication Brand Name Start Date Product Form Dose Route Admi nistrative Instructions Pharmacy Instructions Status Indications Reaction Description Data Source(s) Sulfamethoxazole 800 MG / Trimethoprim 160 MG Oral Tablet [B actrim] Bactrim DS 09/27/2020 12:00:00 AM EDT ORAL active MEDENT ([facility]) Sulfamethoxazole 800 MG / Trimethoprim 160 MG Oral Tablet [B actrim] Bactrim DS 06/26/2020 12:00:00 AM EDT ORAL completed MEDENT ([facility]) pantoprazole 40 MG Delayed Release Oral Tablet Pantoprazole Sodium 06/16/2020 12:00:00 AM EDT active M EDENT ([facility], ) Tretinoin 0.25 MG/ML Topical Cream Tretinoin 04/29/2020 12:00:00 AM EST active MEDENT ([facility]) Ibuprofen 800 MG Oral Tablet Ibuprofen 04/21/2020 12:00:00 AM EST ORAL active MEDENT ([facility]) Sulfamethoxazole 800 MG / Trimethoprim 160 MG Oral Tablet [B actrim] Bactrim DS 04/12/2020 12:00:00 AM EST ORAL completed MEDENT ([facility]) 24 HR Bupropion Hydrochloride 150 MG Extended Release Oral Tablet Bupropion Hydrochloride ER (XL) 02/18/2020 12:00:00 AM EST ORAL c ompleted MEDENT ([facility]) 24 HR venlafaxine 37.5 MG Extended Release Oral Capsule [Eff exor] Effexor XR 01/31/2020 12:00:00 AM EST ORAL completed MEDENT ([facility]) Sucralfate 100 MG/ML Oral Suspension [Carafate] Carafate 12/30/2019 12:00:00 AM EDT ORAL completed MEDENT ([facility]) 24 HR Amphetamine aspartate 5 MG / Amphe tamine Sulfate 5 MG / Dextroamphetamine saccharate 5 MG / Dextroamphetamine Sulfate 5 MG Extended Release Oral Capsule [Adderall] Adderall XR 12/30/2019 12:00:00 AM EDT ORAL active MEDENT ([facility]) pantoprazole 40 MG Delayed Release Oral Tablet [Protonix] Pr otonix 12/30/2019 12:00:00 AM EDT ORAL active M EDENT ([facility]) Insurance Providers Payer name Policy type / Coverage type Policy ID Covered democrat ID Covered democrat's relationship to arango Policy Arango Plan Information [facility] [id number] [facility] [id number] [facility] [id number] [facility] [id number] [facility] - O/P [id number] 01 [id number] O UNAVAILABLE UNAVAILA BLE HUMANA [facility] O [id number] S [id number] [facility] 2017 Commercial [id number] Family Dependent [id number] [facility] 2017 Commercial [id number] Family Dependent [id number] [facility] (2017) Health Maintenance Organization (HMO) [id number] Family Dependent [id number] [place] [address] Commercial [id number] Family Dependent [id number] [facility] (2017) Health Maintenance Organization (HMO) [id number] Family Dependent [id number] SELF PAY O UNAVAILABLE S UNAVAILA BLE SELF PAY ONLY [id number] SP [id number] [facility] [id number] [facility] [id number] [facility] [id number] [facility] [id number] [facility] [id number] Family Dependent [id number] Problems, Conditions, and Diagnoses Code Display Name Description Problem Type Effective Dates Data Source(s) F43.20 Adjustment disorder, unspecified ADJUSTMENT DISO RDER, UNSPECIFIED Diagnosis 08/30/2020 05:00:00 PM [facility] F41.9 Anxiety disorder, unspecified ANXIETY DISORDER, UNSPEC IFIED Diagnosis 08/30/2020 05:00:00 PM [facility] F31.9 Bipolar disorder, unspecified BIPOLAR DISORDER, UNSPEC IFIED Diagnosis 08/30/2020 05:00:00 PM [facility] F43.10 Post-traumatic stress disorder, unspecif ied POST-TRAUMATIC STRESS DISORDER, UNSPECIFIED Diagnosis 08/30/2020 05:00:00 PM [facility] Dodie livingston G43.009 Migraine without aura, not intractable, without status migrainosus MIGRAINE W/O AURA, NOT INTRACTABLE, W/O STATUS AISHA Diagnosis 03:00:00 PM [facility] F32.9 Major depressive disorder, single episod e, unspecified MAJOR DEPRESSIVE DISORDER, SINGLE EPISODE, UNSPECI Diagnosis 07/26/2020 05:00:00 PM [facility] F41.1 Generalized anxiety disorder GENERALIZED ANXIETY DISOR LULU Diagnosis 07/26/2020 05:00:00 PM [facility] F39 Unspecified mood [affective] disorder UNSPECIFIE D MOOD [AFFECTIVE] DISORDER Diagnosis 07/13/2020 04:47:00 PM [facility] F31.30 Bipolar disorder, current ep isode depressed, mild or moderate severity, unspecified BIPOLAR DISORD, CRNT EPSD DEPRESS, MILD OR MOD SEV Diagnosis 06/27/2020 09:28:00 AM [facility] R928 Other abnormal and inconclusive findings on diagnostic imaging of breast Other abnormal and inconclusive findings on diagnostic imaging of breast Diagnosis 04/12/2020 04:52:00 PM [facility] N611 Abscess of the breast and nipple Abscess of the breast and nipple Diagnosis 04/12/2020 04:52:00 PM [facility] Z34.80 care Supervision of other normal P vladimir 01/19/2021 12:00:00 AM EDT eC1 ([facility]) N92.6 Irregular periods Irregular bleeding Problem 01/11/2021 12:00:00 AM EDT eCW1 ([facility]) Z90.11 [id number] Absence of right breast Problem 04/19/2020 1 2:00:[address] [facility] ([facility]) J45.40 Uncomplicated moderate persistent asthma Uncomplicated moderate persistent asthma Problem 12/30/2019 12:00:00 AM EDT CLIFF ([facility]) K21.00 Gastro-esophageal reflux disease with es ophagitis Gastro-esophageal reflux disease with esophagitis Problem 12/30/2019 12:00:00 AM EDT Annemarie SERNA ([facility]) L40.9 Psoriasis Psoriasis Problem 12/30/2019 12:00:00 AM ED T MEDENT ([facility]) Surgeries/Procedures Procedure Description Date Indications Data Source(s) OFFICE OUTPATIENT VISIT 15 MINUTES 10/31/2020 12:00:00 AM EDT MEDENT ([facility]) OFFICE OUTPATIENT VISIT 25 MINUTES 10/09/2020 12:00:00 AM EDT MEDENT ([facility]) OFFICE OUTPATIENT VISIT 15 MINUTES 06/30/2020 12:00:00 AM EDT MEDENT ([facility]) OFFICE OUTPATIENT VISIT 15 MINUTES 06/26/2020 12:00:00 AM EDT MEDENT ([facility]) OFFICE OUTPATIENT VISIT 15 MINUTES 05/25/2020 12:00:00 AM EST MEDENT ([facility]) Injection, medroxyprogesterone acetate for contraceptive use , 150 mg 05/12/2020 12:00:00 AM EST eCW1 ([facility]) Injection, medroxyprogesterone acetate for contraceptive use , 150 mg 02/25/2020 12:00:00 AM EST eCW1 ([facility]) Results ID Date Data Source [id number] 01/31/2021 07:34:00 AM EST MEDENT ([facility]) Name Value Range Interpretation Code Description Data Agnieszka rce(s) Supporting Document(s) Bacteria identified in Urine by Culture Laboratory test result Normal (applies to non-numeric results) [facility] ([facility]) FULL REPORT IN LAB NOTES (eCW and Medent ). NO GROWTH CLINICAL SIGNIFICANCE 2 OR MORE ORGANISMS ID Date Data Source [id number] 01/31/2021 07:34:00 AM EST MEDENT ([facility]) Name Value Range Interpretation Code Description Data Agnieszka rce(s) Supporting Document(s) Chlamydia Dna Amplification Laboratory test result Normal (applies to non- numeric results) [facility] ([facility]) A negative test result does not exclude the possibility of infection because test results may be affected by improper specimen collection, technical error, specimen mix-up, concurrent antibiotic therapy, or the number of organisms in the specimen which may be below the sensitivity of the test. GC Dna Amplification Laboratory test result Norm al (applies to non-numeric results) [facility]) A negative test result does not exclude the possibility of infection because test results may be affected by improper specimen collection, technical error, specimen mix-up, concurrent antibiotic therapy, or the number of organisms in the specimen which may be below the sensitivity of the test. ID Date Data Source [id number] 01/31/2021 07:34:00 AM EST [facility]) Name Value Range Interpretation Code Description Data Agnieszka rce(s) Supporting Document(s) Blood group antibodies identified in Serum or Plasma Laboratory test result Normal (applies to non-numeric results) [facility]) ID Date Data Source [id number] 01/31/2021 07:34:00 AM EST [facility]) Name Value Range Interpretation Code Description Data Agnieszka rce(s) Supporting Document(s) Blood Type Laboratory test result Normal (applies to non-n umeric results) [facility]) AB Screen PNP1 Gel (Vis) Laboratory test result Normal (applies to non- numeric results) [facility]) ID Date Data Source [id number] 01/31/2021 07:34:00 AM EST [facility]) Name Value Range Interpretation Code Description Data Agnieszka rce(s) Supporting Document(s) Hepatitis B virus surface Ag [Presence] in Serum or Pl asma by Immunoassay Laboratory test result Normal (applies to non-numeric results) [facility]) <content>note:<nlbl:demographic_changed> </content>
<content></content> Hepatitis C virus Ab [Units/volume] in Serum by Immunoassay 0.1 INDEX Normal (applies to non-numeric results) [facility]) Negative Not infected with HCV, unless recent infection is suspected or other evidence exists to indicate HCV infection. Reagin Ab [Presence] in Serum by RPR Laboratory test result Normal (applies to non-numeric results) [facility]) <content>note:<nlbl:demographic_changed> </content>
<content></content> Rubella virus IgG Ab [Units/volume] in Serum or Plasma by Immunoassay Laboratory test result Normal (applies to non-numeric results) [facility] ([facility]) THE RUBELLA RESULT WAS OBTAINED WITH THE CENTAUR RUBELLA IGG ASSAY. IgG VALUES FROM ANOTHER MANUFACTURERS' METHOD MAY NOT BE USED INTERCHANGEABLY. MAGNITUDE OF LEVEL CANNOT BE CORRELATED TO AN ENDPOINT TITER. SUSCEPTIBLE 0.00-5.00 IU/ML EQUIVOCAL 5.01-9.99 IU/ML IMMUNE > 10.00 IU/ML HIV 1+2 Ab [Presence] in Serum Laboratory test result Normal (applies to non- numeric results) [facility] ([facility]) <content>This assay was performed utiliz ing a [...] is</content>
<content>99.6-99.8%.</content>
<content></content> ID Date Data Source [id number] 01/31/2021 07:34:00 AM EST [facility] ([facility]) Name Value Range Interpretation Code Description Data Agnieszka rce(s) Supporting Document(s) White Blood Count 9.8 10 4.0-10.0 Normal (applies to non-numeri c results) [facility] ([facility]) Red Blood Count 4.66 10 4.00-5.40 Normal (applies to non-numeric results) [facility] ([facility]) Hematocrit 42.5 % 36.0-47.0 Normal (applies to non-numeric resul ts) [facility] ([facility]) Hemoglobin 13.6 g/dL 12.0-15.5 Normal (applies to non-numeric resul ts) [facility] ([facility]) Mean Corpuscular Volume 91.2 fl 80.0-96.0 Normal ( applies to non-numeric results) [facility] ([facility]) Mean Corpuscular Hemoglobin 29.2 pg 27.0-33.0 Norm al (applies to non-numeric results) [facility] ([facility]) Red Cell Distribution Width 12.1 % 11.5-14.5 Norm al (applies to non-numeric results) [facility] ([facility]) Mean Corpuscular HGB Conc 32.0 g/dL 32.0-36.5 Normal (applies to non-numeric results) [facility] ([facility]) Platelet Count, Automated 337 10 150-450 Normal (applies to non-numeric results) [facility] ([facility]) Nucleated Red Blood Cell % 0.0 % 0-0 Normal (applies to n on-numeric results) [facility] ([facility]) ID Date Data Source SYPHILIS (RPR SCREEN) 01/31/2021 12:00:00 AM EST W1 ([facility]) Name Value Range Interpretation Code Description Data Agnieszka rce(s) Supporting Document(s) NONREACTIVE NONREACTIVE SYPHILIS W1 (Formerly [facility]) ID Date Data Source [id number] 01/31/2021 12:00:00 AM EST eCW1 ([facility]) Name Value Range Interpretation Code Description Data Agnieszka rce(s) Supporting Document(s) HIV 1+2 Ab+HIV1 p24 Ag [Presence] in Serum or Plasma by Immu noassay NEGATIVE NEGATIVE HIV 1&2 SCREEN CENTAUR eCW1 (Formerly [facility]) ID Date Data Source HEPATITIS C ANTIBODY INDEX 01/31/2021 12:00:00 AM EST eCW1 ( [facility]) Name Value Range Interpretation Code Description Data Agnieszka rce(s) Supporting Document(s) 0.1 <0.8 HEPATITIS C VIRUS PRAVIN INDEX eC W1 ([facility]) ID Date Data Source CBC - Complete Blood Count 01/31/2021 12:00:00 AM EST eCW1 ( [facility]) Name Value Range Interpretation Code Description Data Agnieszka rce(s) Supporting Document(s) 9.8 4.0-10.0 WHITE BLOOD COUNT eCW1 ([facility]) 42.5 36.0-47.0 HEMATOCRIT eCW1 ([facility]) 4.66 4.00-5.40 RED BLOOD COUNT eCW1 ([facility]) 13.6 12.0-15.5 HEMOGLOBIN eCW1 ([facility]) 91.2 80.0-96.0 MEAN CORPUSCULAR VOLUME e CW1 ([facility]) 29.2 27.0-33.0 MEAN CORPUSCULAR HEMOGLOB IN eCW1 ([facility]) 32.0 32.0-36.5 MEAN CORPUSCULAR HGB CONC eCW1 ([facility]) 337 150-450 PLATELET COUNT, AUTOMATED eCW1 ([facility]) 12.1 11.5-14.5 RED CELL DISTRIBUTION WID TH eCW1 ([facility]) ID Date Data Source [id number] 01/31/2021 12:00:00 AM EST eCW1 ([facility]) Name Value Range Interpretation Code Description Data Agnieszka rce(s) Supporting Document(s) NEGATIVE NEGATIVE HBsAg eCW1 ([facility]) ID Date Data Source RUBELLA IMMUNE STATUS IgG 01/31/2021 12:00:00 AM EST eCW1 ([facility]) Name Value Range Interpretation Code Description Data Agnieszka rce(s) Supporting Document(s) IMMUNE IMMUNE RUBELLA IgG QUALITATIVE eCW1 ( [facility]) ID Date Data Source [id number] 01/13/2021 02:29:00 PM EDT [facility] ([facility]) Name Value Range Interpretation Code Description Data Agnieszka rce(s) Supporting Document(s) Rh immune globulin screen [interpretation] Laboratory test result [facility] ([facility]) TRANSFUSED PRODUCT: RHOGAM COUNT: 1 ID Date Data Source [id number] 10/09/2020 11:53:00 AM EDT [facility] ([facility]) Name Value Range Interpretation Code Description Data Agnieszka rce(s) Supporting Document(s) Laboratory test finding (navigational concept) Laboratory test result [facility] ([facility]) ID Date Data Source [id number] 10/09/2020 11:53:00 AM EDT [facility] ([facility]) Name Value Range Interpretation Code Description Data Agnieszka rce(s) Supporting Document(s) Glucose [Mass/volume] in Serum or Plasma 124 mg/dL 65-99 Above high normal [facility] ([facility]) Urea nitrogen [Mass/volume] in Serum or Plasma 10 mg/dL 6-20 [facility] ([facility]) Creatinine [Mass/volume] in Serum or Plasma 0.63 mg/dL 0.57-1.00 [facility] ([facility]) eGFR If NonAfricn Am 118 mL/min/1.73 [facility] ([facility]) Urea nitrogen/Creatinine [Mass Ratio] in Serum or Plasma 16 9 -23 [facility] ([facility]) eGFR If Africn Am 136 mL/min/1.73 [facility] ([facility]) [facility] currently reports eGFR in comp liance with the current recommendations of the National Kidney Foundation. [facility] will update reporting as new guidelines are published from the NKF-ASN Task force. Potassium [Moles/volume] in Serum or Plasma 4.2 mmol/L 3.5-5.2 [facility] ([facility]) Sodium [Moles/volume] in Serum or Plasma 139 mmol/L 134-144 [facility] ([facility]) Calcium [Mass/volume] in Serum or Plasma 9.6 mg/dL 8.7-10.2 [facility] ([facility]) Carbon dioxide, total [Moles/volume] in Serum or Plasma 23 mmol/L 20 -29 [facility] ([facility]) Chloride [Moles/volume] in Serum or Plasma 105 mmol/L 96-106 [facility] ([facility]) Albumin [Mass/volume] in Serum or Plasma 4.9 g/dL 3.8-4.8 Above high normal [facility] ([facility]) Phosphate [Moles/volume] in Serum or Plasma 3.3 mg/dL 3.0-4.3 [facility] ([facility]) ID Date Data Source [id number] 10/09/2020 11:53:00 AM EDT [facility] ([facility]) Name Value Range Interpretation Code Description Data Agnieszka rce(s) Supporting Document(s) Laboratory test finding (navigational concept) Laboratory test result [facility] ([facility]) ID Date Data Source [id number] 10/09/2020 11:53:00 AM EDT [facility] ([facility]) Name Value Range Interpretation Code Description Data Agnieszka rce(s) Supporting Document(s) Laboratory test finding (navigational concept) Laboratory test result [facility] ([facility]) The QuantiFERON-TB Gold Plus result is d etermined by subtracting the Nil value from either TB antigen (Ag) tube. The mitogen tube serves as a control for the test. Mycobacterium tuberculosis stimulated ga mma interferon [Units/volume] corrected for background in Blood 0.00 IU/ml [facility] ([facility]) Laboratory test finding (navigational concept) Laboratory test result [facility] ([facility]) QuantiFERON TB2 Ag Value 0.00 IU/ml [facility] NT ([facility]) Laboratory test finding (navigational concept) 0.00 IU/ml [facility] ([facility]) Laboratory test finding (navigational concept) Laboratory test result [facility] ([facility]) The specimen received for QuantiFERON te sting was incubated by the ordering institution. Specific procedures outlined in our Directory of Services and in the package insert for the QuantiFERON Gold (In Tube) test must be followed to enabl e for proper stimulation of cells for the production of interferon gamma. Chemiluminescence immunoassay methodology ID Date Data Source [id number] 10/09/2020 11:53:00 AM EDT [facility] ([facility]) Name Value Range Interpretation Code Description Data Agnieszka rce(s) Supporting Document(s) Protein [Mass/volume] in Serum or Plasma 7.4 g/dL 6.0-8.5 [facility] ([facility]) Bilirubin.total [Mass/volume] in Serum or Plasma 0.2 mg/dL 0.0-1.2 [facility] ([facility]) Bilirubin.conjugated [Mass/volume] in Serum or Plasma 0.08 mg/dL 0.00 -0.40 [facility] ([facility]) Alkaline phosphatase [Enzymatic activity/volume] in Serum or Plasma 82 IU/L 48-121 [facility] ([facility]) Alanine aminotransferase [Enzymatic activity/volume] in Seru m or Plasma 57 IU/L 0-32 Above high normal [facility] ([facility]) Aspartate aminotransferase [Enzymatic activity/volume] in Serum or Plasma 34 IU/L 0-40 [facility] ID Date Data Source [id number] 10/09/2020 11:53:00 AM EDT [facility] ([facility]) Name Value Range Interpretation Code Description Data Agnieszka rce(s) Supporting Document(s) Hepatitis A virus IgM Ab [Units/volume] in Serum by Im munoassay Laboratory [facility] Hepatitis B virus core Ab [Presence] in Serum or Plasm a by Immunoassay [facility] Hepatitis A virus Ab [Presence] in Serum by Immunoassay Labo ratory test result Abnormal (applies to non-numeric results) [facility] ([facility]) Hepatitis B virus core Ab [Presence] in Serum or Plasm a by Immunoassay Laboratory test result [facility]) Non Reactive: Inconsistent with immunity , less than 10 mIU/mL Reactive: Consistent with immunity, greater than 9.9 mIU/mL ID Date Data Source [id number] 10/09/2020 11:53:00 AM EDT [facility] ([facility]) Name Value Range Interpretation Code Description Data Agnieszka rce(s) Supporting Document(s) Leukocytes [#/volume] in Blood by Automated count 8.7 x10E3/uL 3.4-10 .8 [facility] ([facility]) Erythrocytes [#/volume] in Blood by Automated count 4.89 x10E6/uL 3.7 7-5.28 [facility] ([facility]) Hemoglobin [Mass/volume] in Blood 14.3 g/dL 11.1-15.9 [facility] ([facility]) Hematocrit [Volume Fraction] of Blood by Automated count 43.6 % 3 4.0-46.6 [facility] ([facility]) Erythrocyte mean corpuscular volume [Entitic volume] by Auto mated count 89 fL 79-97 [facility] ([facility]) Erythrocyte distribution width [Ratio] by Automated count 12.8 % 11.7-15.4 [facility] ([facility]) Erythrocyte mean corpuscular hemoglobin [Entitic mass] by Automated count 29.2 pg 26.6-33.0 [facility] ([facility]) Erythrocyte mean corpuscular hemoglobin concentration [Mass/volume] by Automated count 32.8 g/dL 31.5-35.7 [facility] ([facility]) Neutrophils/100 leukocytes in Blood by Automated count 59 % [facility] ([facility]) Platelets [#/volume] in Blood by Automated count 416 x10E3/uL 150-450 [facility] ([facility]) Lymphocytes/100 leukocytes in Blood by Automated count 28 % [facility] ([facility]) Eosinophils/100 leukocytes in Blood by Automated count 4 % [facility] ([facility]) Monocytes/100 leukocytes in Blood by Automated count 8 % [facility] ([facility]) Immature cells [#/volume] in Blood Laboratory test result [facility] ([facility]) Basophils/100 leukocytes in Blood by Automated count 1 % [facility] ([facility]) Neutrophils [#/volume] in Blood by Automated count 5.2 x10E3/uL 1.4-7 .0 [facility] ([facility]) Monocytes [#/volume] in Blood 0.7 x10E3/uL 0.1-0.9 [facility] ([facility]) Lymphocytes [#/volume] in Blood 2.4 x10E3/uL 0.7-3.1 [facility] ([facility]) Basophils [#/volume] in Blood by Automated count 0.1 x10E3/uL 0.0-0.2 [facility] ([facility]) Eosinophils [#/volume] in Blood by Automated count 0.3 x10E3/uL 0.0-0 .4 [facility] ([facility]) Immature granulocytes [#/volume] in Blood by Automated count 0.0 x10E3/uL 0.0-0.1 [facility] ([facility]) Immature granulocytes/100 leukocytes in Blood by Automated count 0 % [facility] ([facility]) Nucleated erythrocytes/100 leukocytes [Ratio] in Blood by Automated count Laboratory test result [facility] ([facility]) Morphology [Interpretation] in Blood Narrative Laboratory test result [facility] ([facility]) ID Date Data Source [id number] 09/21/2020 07:12:00 AM EDT [facility] ([facility]) Name Value Range Interpretation Code Description Data Agnieszka rce(s) Supporting Document(s) Laboratory test finding (navigational concept) Laboratory test result [facility] ([facility]) Will treat for 14 days with Bactrim DS ID Date Data Source [id number] 09/21/2020 07:12:00 AM EDT [facility] ([facility]) Name Value Range Interpretation Code Description Data Agnieszka rce(s) Supporting Document(s) Bacteria identified in Unspecified specimen by Culture Laborator y test result Abnormal (applies to non-numeric results) [facility] ([facility]) Will treat for 14 days with Bactrim DS Bacteria identified in Unspecified specimen by Aerobe culture Laboratory test result Abnormal (applies to non-numeric results) [facility] ([facility]) Will treat for 14 days with Bactrim DS Bacteria identified in Unspecified specimen by Culture Laborator y test result [facility] ([facility]) Will treat for 14 days with Bactrim DS Other Antibiotic [Susceptibility] Laboratory test result [facility] ([facility]) Will treat for 14 days with Bactrim DS ID Date Data Source [id number] 09/20/2020 05:33:00 PM EDT [facility] ([facility]) Name Value Range Interpretation Code Description Data Agnieszka rce(s) Supporting Document(s) Bacteria identified in Unspecified specimen by Aerobe culture Laboratory test result [facility] ([facility]) ID Date Data Source [id number] 06/28/2020 10:43:00 PM EDT [facility] ([facility]) Name Value Range Interpretation Code Description Data Agnieszka rce(s) Supporting Document(s) Gram Stain Laboratory test result Normal (applies to non-n umeric results) [facility] ([facility]) FEW WBCS MODERATE RBCS FEW GRAM POSITIVE COCCI IN CLUSTERS Wound Culture Laboratory test result Normal (applies t o non-numeric results) [facility] ([facility]) <content>FULL REPORT IN LAB NOTES (eCW [...]
<content>CLIDAMYCIN SENSITIVE.</content>
<content></content> ID Date Data Source [id number] 05/26/2020 02:53:00 AM EST [facility] ([facility], ) Name Value Range Interpretation Code Description Data [facility] rce(s) Supporting Document(s) Surgical pathology study Laboratory test result [facility] ([facility], ) FINAL DIAGNOSIS Esophagus, biopsy: Squamous mucosa [...] MD 05/29/2020 [id number] ID Date Data Source [id number] 05/25/2020 11:13:00 PM EST [facility] ([facility]) Name Value Range Interpretation Code Description Data Agnieszka [facility](s) Supporting Document(s) Influenza A Amplification Laboratory test result Normal (applies to non- numeric results) [facility] ([facility]) Negative results do not preclude influen za or RSV virus infection and should not be used as the sole basis for treatment or other patient management decisions. Influenza B Amplification Laboratory test result Normal (applies to non- numeric results) [facility] ([facility]) Negative results do not preclude influen za or RSV virus infection and should not be used as the sole basis for treatment or other patient management decisions. RSV Amplification Laboratory test result Normal (applies to non-numeric results) [facility] ([facility]) Negative results do not preclude influen za or RSV virus infection and should not be used as the sole basis for treatment or other patient management decisions. Laboratory test finding (navigational concept) Laboratory test r esult Normal (applies to non-numeric results) [facility] ([facility]) A false negative result may [...] pathogens. DISCLAIMER: Testing was performed using the [employer] SARS-CoV-2 test. This test was developed and its performance characteristics determined by [employer]. This test has not been FDA cleared [...] or revoked sooner. ID Date Data Source [id number] 05/25/2020 11:13:00 PM EST [facility] ([facility], ) Name Value Range Interpretation Code Description Data Agnieszka rce(s) Supporting Document(s) Influenza B Amplification Laboratory test result Normal (applies to non- numeric results) [facility] ([facility], ) Negative results do not preclude influen za or RSV virus infection and should not be used as the sole basis for treatment or other patient management decisions. Influenza A Amplification Laboratory test result Normal (applies to non- numeric results) [facility] ([facility], ) Negative results do not preclude influen za or RSV virus infection and should not be used as the sole basis for treatment or other patient management decisions. Laboratory test finding (navigational concept) Laboratory test r esult Normal (applies to non-numeric results) [facility] ([facility] ) A false negative result may [...] pathogens. DISCLAIMER: Testing was performed using the [employer] SARS-CoV-2 test. This test was developed and its performance characteristics determined by [employer]. This test has not been FDA cleared [...] test result Normal (applies to non-numeric results) [facility] ([facility], ) Negative results do not preclude influen za or RSV virus infection and should not be used as the sole basis for treatment or other patient management decisions. ID Date Data Source [id number] 05/25/2020 11:13:00 PM EST [facility] Name Value Range Interpretation Code Description Data Agnieszka rce(s) Supporting Document(s) SARS coronavirus 2 RNA [Presence] in Res piratory specimen by ISSA with probe detection NEGATIVE [facility] This lab was ordered by [facility] a nd reported by [facility]. ID Date Data Source [id number] 05/25/2020 10:19:00 PM EST [facility] ([facility]) Name Value Range Interpretation Code Description Data Agnieszka rce(s) Supporting Document(s) Laboratory test finding (navigational concept) 45.0 % 3 8.0-51.0 Normal (applies to non-numeric results) [facility] ([facility]) Laboratory test finding (navigational concept) 98 mg/dL 7 0-105 Normal (applies to non-numeric results) [facility] ([facility]) Laboratory test finding (navigational concept) 143 meq/L 1 36-145 Normal (applies to non-numeric results) [facility] ([facility]) Laboratory test finding (navigational concept) 4.1 meq/L 3 .5-5.1 Normal (applies to non-numeric results) [facility] ([facility]) Laboratory test finding (navigational concept) 5.0 mg/dL 4 .5-5.3 Normal (applies to non-numeric results) [facility] ([facility]) Laboratory test finding (navigational concept) 106 meq/L 9 8-109 Normal (applies to non-numeric results) [facility] ([facility]) Laboratory test finding (navigational concept) 27.0 MM/L 2 3.0-27.0 Normal (applies to non-numeric results) [facility] ([facility]) Laboratory test finding (navigational concept) 13 mg/dL 8 -26 Normal (applies to non-numeric results) [facility] ([facility]) Laboratory test finding (navigational concept) 0.7 mg/dL 0 .6-1.3 Normal (applies to non-numeric results) [facility] ([facility]) ID Date Data Source [id number] 05/25/2020 09:57:00 PM EST [facility] ([facility]) Name Value Range Interpretation Code Description Data Agnieszka rce(s) Supporting Document(s) Glucose, Fasting 97 mg/dL 70-100 Normal (applies to non-numeric results) [facility] ([facility]) Blood Urea Nitrogen 13 mg/dL 7-18 Normal (applies to non-nume hailey results) [facility] ([facility]) Creatinine For GFR 0.83 mg/dL 0.55-1.30 Normal (applies to non -numeric results) [facility] ([facility]) Glomerular Filtration Rate Laboratory test result Normal (applies to non- numeric results) [facility] ([facility]) <content>Units are mL/min/1.73 m2</content>
<content></content>
<content>Chronic Kidney Disease Staging per NKF:</content>
<content></content>
<content>Stage I & II GFR >=60 Normal to Mildly Decreased</content>
<content>Stage III GFR 30- 59 Moderately Decreased</content>
<content>Stage IV GFR 15-29 Severely Decreased</content>
<content>Stage V GFR <15 Very Little GFR Left</content>
<content>ESRD GFR <15 on [employer]</content>
<content></content> Sodium Level 142 meq/L 136-145 Normal (applies to non-numeric res ults) [facility] ([facility]) Potassium Serum 4.2 meq/L 3.5-5.1 Normal (applies to non-numeric results) [facility]) Chloride Level 110 meq/L 98-107 Above high normal [facility] ([facility]) Carbon Dioxide Level 27 meq/L 21-32 Normal (applies to non-num roxie results) [facility] ([facility]) Anion Gap 5 meq/L 8-16 Below low normal [facility] ( [facility]) Calcium Level 9.3 mg/dL 8.5-10.1 Normal (applies to non-numeric re sults) [facility] ([facility]) ID Date Data Source [id number] 05/25/2020 09:57:00 PM EST [facility] ([facility]) Name Value Range Interpretation Code Description Data Agnieszka rce(s) Supporting Document(s) Red Blood Count 4.97 10 4.00-5.40 Normal (applies to non-numeric results) [facility] ([facility]) White Blood Count 8.9 10 4.0-10.0 Normal (applies to non-numeri c results) [facility] ([facility]) Hemoglobin 14.3 g/dL 12.0-15.5 Normal (applies to non-numeric resul ts) [facility] ([facility]) Hematocrit 44.6 % 36.0-47.0 Normal (applies to non-numeric resul ts) [facility] ([facility]) Mean Corpuscular Volume 89.7 fl 80.0-96.0 Normal ( applies to non-numeric results) [facility] ([facility]) Mean Corpuscular Hemoglobin 28.8 pg 27.0-33.0 Norm al (applies to non-numeric results) [facility] ([facility]) Mean Corpuscular HGB Conc 32.1 g/dL 32.0-36.5 Normal (applies to non-numeric results) [facility] ([facility]) Red Cell Distribution Width 13.0 % 11.5-14.5 Norm al (applies to non-numeric results) [facility] ([facility]) Platelet Count, Automated 358 10 150-450 Normal (applies to non-numeric results) [facility] ([facility]) Neutrophils % 51.3 % 36.0-66.0 Normal (applies to non-numeric re sults) [facility] ([facility]) Lymph % 33.4 % 24.0-44.0 Normal (applies to non-numeric resul ts) [facility] ([facility]) Eos % 6.5 % 0.0-3.0 Above high normal [facility] ([facility]) [place] % 7.8 % 2.0-8.0 Normal (applies to non-numeric resul ts) [facility] ([facility]) Immature Granulocyte % 0.3 % 0-3.0 Normal (applies to non-n umeric results) [facility] ([facility]) Baso % 0.7 % 0.0-1.0 Normal (applies to non-numeric resul ts) [facility] ([facility]) Nucleated Red Blood Cell % 0.0 % 0-0 Normal (applies to n on-numeric results) [facility] ([facility]) Neutrophils # 4.6 10 1.5-8.5 Normal (applies to non-numeric re sults) [facility] ([facility]) Lymph # 3.0 10 1.5-5.0 Normal (applies to non-numeric resul ts) [facility] ([facility]) Eos # 0.6 10 0.0-0.5 Above high normal [facility] ([facility]) [place] # 0.7 10 0.0-0.8 Normal (applies to non-numeric resul ts) [facility] ([facility]) Baso # 0.1 10 0.0-0.2 Normal (applies to non-numeric resul ts) [facility] ([facility]) ID Date Data Source [id number] 04/19/2020 04:17:00 PM EST [facility] ([facility], ) Name Value Range Interpretation Code Description Data Agnieszka rce(s) Supporting Document(s) Blood group antibody screen [Presence] in Serum or Alyssa sma Laboratory test result Normal (applies to non-numeric results) [facility] ([facility], ) Blood Type Laboratory test result Normal (applies to non-n umeric results) [facility] ([facility]) ID Date Data Source [id number] 04/19/2020 04:17:00 PM EST [facility] ([facility]) Name Value Range Interpretation Code Description Data Agnieszka rce(s) Supporting Document(s) Blood Type Laboratory test result Normal (applies to non-n umeric results) [facility] ([facility]) AB Screen (Indirect Mekhi)Vis Laboratory test result Normal (applies to non- numeric results) [facility]) ID Date Data Source [id number] 04/19/2020 10:15:00 AM EST [facility] ([facility]) Name Value Range Interpretation Code Description Data Agnieszka rce(s) Supporting Document(s) Laboratory test finding (navigational concept) Laboratory test r esult Normal (applies to non-numeric results) [facility] ([facility], ) A false negative result may occur [...] pathogens. DISCLAIMER: Testing was performed using the [employer] SARS-CoV-2 test. This test was developed and its performance characteristics determined by [employer]. This test has not been FDA cleared [...] or revoked sooner. ID Date Data Source [id number] 04/19/2020 10:15:00 AM EST [facility] ([facility], ) Name Value Range Interpretation Code Description Data Agnieszka rce(s) Supporting Document(s) Coronavirus 2019 Nasopharygeal Laboratory test result [facility] ([facility], ) By: SANSHAYAN Time: 1014 Laboratory test finding (navigational concept) Laboratory test r esult Normal (applies to non-numeric results) [facility] ([facility]) A false negative result may occur [...] pathogens. DISCLAIMER: Testing was performed using the [employer] SARS-CoV-2 test. This test was developed and its performance characteristics determined by [employer]. This test has not been FDA cleared [...] or revoked sooner. ID Date Data Source [id number] 04/19/2020 10:15:00 AM EST [facility] ([facility]) Name Value Range Interpretation Code Description Data Agnieszka rce(s) Supporting Document(s) Laboratory test finding (navigational concept) Laboratory test r esult Normal (applies to non-numeric results) [facility] ([facility]) A false negative result may [...] pathogens. DISCLAIMER: Testing was performed using the [employer] SARS-CoV-2 test. This test was developed and its performance characteristics determined by [employer]. This test has not been FDA cleared [...] or revoked sooner. ID Date Data Source [id number] 04/19/2020 10:15:00 AM [facility] Name Value Range Interpretation Code Description Data Agnieszka rce(s) Supporting Document(s) SARS coronavirus 2 RNA [Presence] in Res piratory specimen by ISSA with probe detection NEGATIVE [facility] This lab was ordered by [facility] a nd reported by [facility]. ID Date Data Source [id number] 04/14/2020 11:16:00 AM [facility] [address] [place] [address] PHONE: [phone] FAX: [phone] Name .................. : DIMPLE Massey Acct Number.................. : [id number] ROOM. ................. : MR Number ................... : [id number] Stay type ............. : O/P Discharge Date......... ... : 04/12/20 Admit Date ......... : 04/12/20 Admit Phys .................... : FAITH SEGUNDO Date of ....... : 1985 Family Phys ................... : NONSTAFF Phone .................. : [phone] Age ................................ : 34 Film# .................. .:[id number] Sex ................................. : F Unsigned transcriptions are preliminary reports and do not represent a medical or legal document BREAST RIGHT [id number] COMPLETE:04/12/20 20:00 ADB 3090 (TEST REASON: PAIN [...] for: FAITH MCPHERSON via fax Copy for: [address] [place] [address] REC Page 1 of 1 Name Value Range Interpretation Code Description Data Agnieszka rce(s) Supporting Document(s) ID Date Data Source [id number] 04/14/2020 11:16:00 AM EST [facility] [address] [place] [address] PHONE: [phone] FAX: [phone] Name .................. : DIMPLE Massey Acct Number.................. : [id number] ROOM. ................. : MR Number ................... : [id number] Stay type ............. : O/P Discharge Date......... ... : 04/12/20 Admit Date ......... : 04/12/20 Admit Phys .................... : [facility] Date of ....... : 1985 Family Phys ................... : NONSTAFF Phone .................. : [phone] Age ................................ : 34 Film# .................. .:[id number] Sex ................................. : F Unsigned transcriptions are preliminary reports and do not represent a medical or legal document US BREAST LEFT [id number] COMPLETE:04/12/20 20:00 ADB 9248 (TEST REASON: DRAINAGE OF PUS FROM LEFT [...] By [place] Hawk M.D. , 04/14/20 11:16, [facility] Transcribe Initials: Dawit [place] anscribe Date: 04/12/20 22:11, Dictation Date: Copy for: FAITH MCPHERSON via fax Copy for: [facility] MED REC Page 1 of 1 Name Value Range Interpretation Code Description Data Agnieszka rce(s) Supporting Document(s) ID Date Data Source [id number] 04/12/2020 04:02:00 PM EST [facility] ([facility]) Name Value Range Interpretation Code Description Data Agnieszka rce(s) Supporting Document(s) Bacteria identified in Wound shallow by Aerobe culture Laborator y test result Normal (applies to non-numeric results) [facility] ([facility]) <content>FULL REPORT IN LAB NOTES (eCW [...] Never Smoker completed Never S moker eCW1 ([facility]) Smoking 01/23/2021 12:00:00 AM EST Never Smoker completed Never S moker eCW1 ([facility]) Smoking 07/31/2020 12:00:00 AM EDT Never Smoker completed Never S moker eCW1 ([facility]) Smoking 07/31/2020 12:00:00 AM EDT Never Smoker completed Never S moker eCW1 ([facility]) Smoking 07/31/2020 12:00:00 AM EDT Never Smoker completed Never S moker eCW1 ([facility]) Smoking 07/31/2020 12:00:00 AM EDT Never Smoker completed Never S moker eCW1 ([facility]) Smoking 07/31/2020 12:00:00 AM EDT Never Smoker completed Never S moker eCW1 ([facility]) Smoking 05/01/2020 12:00:00 AM EST Never Smoker completed Never S moker eCW1 ([facility]) Smoking 05/01/2020 12:00:00 AM EST Never Smoker completed Never S moker eCW1 ([facility]) Smoking 05/01/2020 12:00:00 AM EST Never Smoker completed Never S moker eCW1 ([facility]) Smoking 05/01/2020 12:00:00 AM EST Never Smoker completed Never S moker eCW1 ([facility]) Smoking 05/01/2020 12:00:00 AM EST Never Smoker completed Never S moker eCW1 ([facility]) Smoking 04/24/2020 12:00:00 AM EST Never Smoker completed Never S moker eCW1 ([facility]) Smoking 04/19/2020 12:00:00 AM EST Never Smoker completed Never S moker eCW1 ([facility]) Vital Signs ID Date Data Source [id number] Name Value Range Interpretation Code Description Data Source(s) Body weight 162.6 [lb_av] 162.6 [lb_av] eCW1 ([facility]) Body height 65 [in_i] 65 [in_i] eCW1 ([facility]) Body mass index (BMI) [Ratio] 27.058 kg/m2 27.0 58 kg/m2 eCW1 ([facility]) Systolic blood pressure 122 mm[Hg] 122 mm[Hg] e CW1 ([facility]) Diastolic blood pressure 74 mm[Hg] 74 mm[Hg] eCW1 ([facility]) Systolic blood pressure 128 mm[Hg] 128 mm[Hg] M EDENT ([facility]) Diastolic blood pressure 72 mm[Hg] 72 mm[Hg] [facility] ([facility]) Body height 66 [in_i] 66 [in_i] [facility] ([facility]) 5'6" Body weight 166.38 [lb_av] 166.38 [lb_av] [facility] T ([facility]) Body mass index (BMI) [Ratio] 26.9 kg/m2 26.9 k g/m2 [facility] ([facility]) Heart rate 97 /min 97 /min [facility] ([facility]) Respiratory rate 14 /min 14 /min [facility] ( [facility]) Body temperature 98.5 [degF] 98.5 [degF] [facility] Oxygen saturation in Arterial blood by Pulse oximetry 99 % 99 % [facility] ([facility]) [place] body weight 130 [lb_av] 130 [lb_av] [facility] T ([facility]) Respiratory rate 18 /min 18 /min [facility] ( [facility]) Systolic blood pressure 122 mm[Hg] 122 mm[Hg] M EDENT ([facility]) Diastolic blood pressure 72 mm[Hg] 72 mm[Hg] [facility] ([facility]) Respiratory rate 18 /min 18 /min [facility] ( [facility]) Body weight 167 [lb_av] 167 [lb_av] eCW1 ([facility]) Body weight 75.75 kg 75.75 kg eCW1 ([facility]) Body height 65 [in_i] 65 [in_i] eCW1 ([facility]) Body mass index (BMI) [Ratio] 27.79 kg/m2 27.79 kg/m2 [facility] ([facility]) Heart rate 87 /min 87 /min eCW1 ([facility]) Body temperature 97.4 [degF] 97.4 [degF] eCW1 ( [facility]) Systolic blood pressure 130 mm[Hg] 130 mm[Hg] e CW1 ([facility]) Diastolic blood pressure 82 mm[Hg] 82 mm[Hg] eCW1 ([facility]) Body weight 168.00 [lb_av] 168.00 [lb_av] [facility] T ([facility]) Body mass index (BMI) [Ratio] 27.1 kg/m2 27.1 k g/m2 [facility] ([facility]) Heart rate 87 /min 87 /min [facility] ([facility]) Respiratory rate 20 /min 20 /min [facility] ( [facility]) Systolic blood pressure 130 mm[Hg] 130 mm[Hg] M [facility] ([facility]) Diastolic blood pressure 80 mm[Hg] 80 mm[Hg] [facility] ([facility]) Body height 66 [in_i] 66 [in_i] [facility] ([facility]) 5'6" Body temperature 99.9 [degF] 99.9 [degF] [facility] ([facility]) Oxygen saturation in Arterial blood by Pulse oximetry 98 % 98 % [facility] ([facility]) [place] body weight 130 [lb_av] 130 [lb_av] [facility] T ([facility]) Body weight 169.38 [lb_av] 169.38 [lb_av] [facility] T ([facility]) Body mass index (BMI) [Ratio] 27.3 kg/m2 27.3 k g/m2 [facility] ([facility]) Systolic blood pressure 122 mm[Hg] 122 mm[Hg] M [facility] ([facility]) Respiratory rate 18 /min 18 /min [facility] ( [facility]) [place] body weight 130 [lb_av] 130 [lb_av] [facility] T ([facility]) Heart rate 96 /min 96 /min [facility] ([facility]) Diastolic blood pressure 72 mm[Hg] 72 mm[Hg] [facility] ([facility]) Body height 66 [in_i] 66 [in_i] [facility] ([facility]) 5'6" Body temperature 98.9 [degF] 98.9 [degF] [facility] ([facility]) Oxygen saturation in Arterial blood by Pulse oximetry 97 % 97 % [facility] ([facility]) [place] body weight 130 [lb_av] 130 [lb_av] [facility] T ([facility], ) Systolic blood pressure 128 mm[Hg] 128 mm[Hg] M EDENT ([facility], ) Diastolic blood pressure 68 mm[Hg] 68 mm[Hg] [facility] ([facility], ) Heart rate 84 /min 84 /min [facility] ([facility] ) Respiratory rate 16 /min 16 /min [facility] ( [facility], ) Body temperature 97.8 [degF] 97.8 [degF] [facility] ([facility], ) Body height 66 [in_i] 66 [in_i] [facility] ([facility], ) 5'6" Oxygen saturation in Arterial blood by Pulse oximetry 99 % 99 % [facility] ([facility]) Systolic blood pressure 114 mm[Hg] 114 mm[Hg] [facility] Diastolic blood pressure 72 mm[Hg] 72 mm[Hg] [facility] ([facility]) Body height 66 [in_i] 66 [in_i] [facility] ([facility]) 5'6" Body weight 166.38 [lb_av] 166.38 [lb_av] [facility] T ([facility]) Body mass index (BMI) [Ratio] 26.9 kg/m2 26.9 k g/m2 [facility] ([facility]) Heart rate 104 /min 104 /min [facility] ([facility]) [place] body weight 130 [lb_av] 130 [lb_av] [facility] T ([facility]) Respiratory rate 18 /min 18 /min [facility] ( [facility]) Body temperature 99.2 [degF] 99.2 [degF] [facility] ([facility]) [place] body weight 130 [lb_av] 130 [lb_av] MED[facility] T ([facility]) Systolic blood pressure 126 mm[Hg] 126 mm[Hg] M EDENT ([facility]) Diastolic blood pressure 74 mm[Hg] 74 mm[Hg] [facility] ([facility]) Heart rate 88 /min 88 /min [facility] ([facility]) Respiratory rate 16 /min 16 /min [facility] ( [facility]) Body height 66 [in_i] 66 [in_i] [facility] ([facility]) 5'6" Body weight 164.00 [lb_av] 164.00 [lb_av] MED[facility] T ([facility]) Body mass index (BMI) [Ratio] 26.5 kg/m2 26.5 k g/m2 [facility] ([facility]) Body weight 74.390 kg 74.390 kg [facility] ([facility]) Body surface area Derived from formula 1.84 m2 1.84 m2 [facility] ([facility]) Body weight 163 [lb_av] 163 [lb_av] eCW1 ([facility]) Body weight 73.94 kg 73.94 kg eCW1 ([facility]) Body height 65 [in_i] 65 [in_i] eCW1 ([facility]) Body mass index (BMI) [Ratio] 27.12 kg/m2 27.12 kg/m2 eCW1 ([facility]) Heart rate 97 /min 97 /min eCW1 ([facility]) Respiratory rate 20 /min 20 /min eCW1 ([facility]) Body temperature 97.9 [degF] 97.9 [degF] eCW1 ( [facility]) Systolic blood pressure 120 mm[Hg] 120 mm[Hg] e CW1 ([facility]) Diastolic blood pressure 84 mm[Hg] 84 mm[Hg] eCW1 ([facility]) Systolic blood pressure 124 mm[Hg] 124 mm[Hg] M EDENT ([facility]) Diastolic blood pressure 74 mm[Hg] 74 mm[Hg] [facility] ([facility]) Body weight 165.00 [lb_av] 165.00 [lb_av] MED[facility] T ([facility]) Heart rate 106 /min 106 /min [facility] ([facility]) Oxygen saturation in Arterial blood by Pulse oximetry 98 % 98 % [facility] ([facility]) Body height 66 [in_i] 66 [in_i] [facility] ([facility]) 5'6" Body mass index (BMI) [Ratio] 26.6 kg/m2 26.6 k g/m2 [facility] ([facility]) Respiratory rate 18 /min 18 /min [facility] ( [facility]) Body temperature 99.3 [degF] 99.3 [degF] [facility] ([facility]) [place] body weight 130 [lb_av] 130 [lb_av] MED[facility] T ([facility]) Body temperature 98.1 [degF] 98.1 [degF] eCW1 ( [facility]) Systolic blood pressure 106 mm[Hg] 106 mm[Hg] e CW1 ([facility]) Diastolic blood pressure 78 mm[Hg] 78 mm[Hg] eCW1 ([facility]) Body weight 163 [lb_av] 163 [lb_av] eCW1 ([facility]) Body weight 73.94 kg 73.94 kg eCW1 ([facility]) Body height 65 [in_i] 65 [in_i] eCW1 ([facility]) Body mass index (BMI) [Ratio] 27.12 kg/m2 27.12 kg/m2 eCW1 ([facility]) Heart rate 83 /min 83 /min eCW1 ([facility]) Respiratory rate 18 /min 18 /min eCW1 ([facility]) Body weight 166 [lb_av] 166 [lb_av] eCW1 ([facility]) Body weight 75.3 kg 75.3 kg eCW1 ([facility]) Body height 65 [in_i] 65 [in_i] eCW1 ([facility]) Body mass index (BMI) [Ratio] 27.62 kg/m2 27.62 kg/m2 eCW1 ([facility]) Heart rate 102 /min 102 /min eCW1 ([facility]) Respiratory rate 18 /min 18 /min eCW1 ([facility]) Body temperature 98.4 [degF] 98.4 [degF] eCW1 ( [facility]) Systolic blood pressure 108 mm[Hg] 108 mm[Hg] e CW1 ([facility]) Diastolic blood pressure 68 mm[Hg] 68 mm[Hg] eCW1 ([facility]) Body weight 166 [lb_av] 166 [lb_av] eCW1 ([facility]) Body weight 75.3 kg 75.3 kg eCW1 ([facility]) Body height 65 [in_i] 65 [in_i] eCW1 ([facility]) Body mass index (BMI) [Ratio] 27.62 kg/m2 27.62 kg/m2 eCW1 ([facility]) Heart rate 102 /min 102 /min eCW1 ([facility]) Respiratory rate 18 /min 18 /min eCW1 ([facility]) Body temperature 98.4 [degF] 98.4 [degF] eCW1 ( [facility]) Systolic blood pressure 108 mm[Hg] 108 mm[Hg] e CW1 ([facility]) Diastolic blood pressure 68 mm[Hg] 68 mm[Hg] eCW1 ([facility]) Body mass index (BMI) [Ratio] 26.3 kg/m2 26.3 k g/m2 [facility] ([facility]) Heart rate 99 /min 99 /min [facility] ([facility]) Respiratory rate 18 /min 18 /min [facility] ( [facility]) Body temperature 99.8 [degF] 99.8 [degF] [facility] ([facility]) Oxygen saturation in Arterial blood by Pulse oximetry 121 % 121 % [facility] ([facility]) Systolic blood pressure 138 mm[Hg] 138 mm[Hg] M EDENT ([facility]) Diastolic blood pressure 87 mm[Hg] 87 mm[Hg] [facility] ([facility]) Body height 66 [in_i] 66 [in_i] [facility] ([facility]) 5'6" Body weight 163.00 [lb_av] 163.00 [lb_av] MEDEN T ([facility]) [place] body weight 130 [lb_av] 130 [lb_av] MEDEN T ([facility]) Diastolic blood pressure 64 mm[Hg] 64 mm[Hg] [facility] ([facility]) Body weight 164.00 [lb_av] 164.00 [lb_av] MEDEN T ([facility]) [place] body weight 130 [lb_av] 130 [lb_av] MEDEN T ([facility]) Systolic blood pressure 122 mm[Hg] 122 mm[Hg] [facility] Body height 66 [in_i] 66 [in_i] [facility] ([facility]) 5'6" Body mass index (BMI) [Ratio] 26.5 kg/m2 26.5 k g/m2 [facility] ([facility]) Heart rate 103 /min 103 /min [facility] ([facility]) Respiratory rate 18 /min 18 /min [facility] ( [facility]) Body temperature 98.9 [degF] 98.9 [degF] [facility] ([facility]) Oxygen saturation in Arterial blood by Pulse oximetry 96 % 96 % [facility] ([facility]) Systolic blood pressure 112 mm[Hg] 112 mm[Hg] M EDENT ([facility]) Diastolic blood pressure 70 mm[Hg] 70 mm[Hg] [facility] ([facility]) Body height 66 [in_i] 66 [in_i] [facility] ([facility]) 5'6" Body weight 166.38 [lb_av] 166.38 [lb_av] MEDEN T ([facility]) Body mass index (BMI) [Ratio] 26.9 kg/m2 26.9 k g/m2 [facility] ([facility]) Heart rate 99 /min 99 /min [facility] ([facility]) Respiratory rate 18 /min 18 /min [facility] ( [facility]) Body temperature 99.0 [degF] 99.0 [degF] [facility] ([facility]) Oxygen saturation in Arterial blood by Pulse oximetry 99 % 99 % [facility] ([facility]) [place] body weight 130 [lb_av] 130 [lb_av] [facility] ([facility]) Diastolic blood pressure 60 mm[Hg] 60 mm[Hg] [facility] ([facility]) Body height 66 [in_i] 66 [in_i] [facility] ([facility]) 5'6" Body weight 162.00 [lb_av] 162.00 [lb_av] [facility] ([facility]) Systolic blood pressure 120 mm[Hg] 120 mm[Hg] M [facility] ([facility]) Body mass index (BMI) [Ratio] 26.1 kg/m2 26.1 k g/m2 [facility] ([facility]) [place] body weight 130 [lb_av] 130 [lb_av] [facility] Body weight 73.483 kg 73.483 kg [facility] ([facility]) Body surface area Derived from formula 1.83 m2 1.83 m2 [facility] ([facility]) Body weight 158.38 [lb_av] 158.38 [lb_av] [facility] ([facility]) Systolic blood pressure 114 mm[Hg] 114 mm[Hg] M [facility] ([facility]) Body temperature 99.1 [degF] 99.1 [degF] [facility] ([facility]) Heart rate 66 /min 66 /min [facility] ([facility]) [place] body weight 130 [lb_av] 130 [lb_av] [facility] ([facility]) Oxygen saturation in Arterial blood by Pulse oximetry 97 % 97 % [facility] ([facility]) Body height 66 [in_i] 66 [in_i] [facility] ([facility]) 5'6" Diastolic blood pressure 68 mm[Hg] 68 mm[Hg] [facility] ([facility]) Respiratory rate 18 /min 18 /min [facility] ( [facility]) Body mass index (BMI) [Ratio] 25.6 kg/m2 25.6 k g/m2 [facility] ([facility])
--- OUTSIDE RECORDS SUMMARY | 2021-02-17 02:01 | CCD ---
Author Author [facility] Organization [facility] Address Unknown Phone Unavailable Support Name Relationship Address Phone [facility]ITION[facility] Next Of Kin [id number] [place] [address] TOMÁS MUSA Next Of [place] [id number] [place] [address] UE Next Of Kin Unknown Unavailable TOMÁS MUSA ECON [id number] [place] [address] Unavailable GIOVANNY MUSA ECON [address] [place] [address] Unavailable Care Team Providers Care [place] Buyer Name Role Phone NON-STAFF, PHYSICIAN Unavailable Unavailable SonjaPamella chino CELL TECHNICIAN Unavailable Unavailable Sonja, Pamella Ken CELL TECHNICIAN Unavailable Unavailable Sonja, Pamella Ken CELL TECHNICIAN Unavailable Unavailable Sonja, Pamella Ken CELL TECHNICIAN Unavailable Unavailable [place], Pamella Ken CELL TECHNICIAN Unavailable Unavailable [place], Pamella Ken CELL TECHNICIAN Unavailable Unavailable Sonja, Pamella Ken CELL TECHNICIAN Unavailable Unavailable Sonja, Pamella Ken CELL TECHNICIAN Unavailable Unavailable [place], Pamella Ken CELL TECHNICIAN Unavailable Unavailable [place], Pamella Ken CELL TECHNICIAN Unavailable Unavailable [place], Pamella Jesus Manuel CELL TECHNICIAN Unavailable Unavailable [place], Pamella Ken CELL TECHNICIAN Unavailable Unavailable [place], Pamella Jesus Manuel CELL TECHNICIAN Unavailable Unavailable [place], Pamella Jesus Manuel CELL TECHNICIAN Unavailable Unavailable Jean Claude LILLY Unavailable Unavailable [...] CHELSEA DO Unavailable Unavailable Duvall, A Phyl CELL TECHNICIAN-BC Unavailable Unavailable Duvall, A Phyl CELL TECHNICIAN-BC Unavailable Unavailable Duvall, A Phyl CELL TECHNICIAN-BC Unavailable Unavailable Duvall, A Phyl CELL TECHNICIAN-BC Unavailable Unavailable Duvall, A Phyl CELL TECHNICIAN-BC Unavailable Unavailable Duvall, A Phyl CELL TECHNICIAN-BC Unavailable Unavailable Duvall, A Phyl CELL TECHNICIAN-BC Unavailable Unavailable Duvall, A Phyl CELL TECHNICIAN-BC Unavailable Unavailable Duvall, A Phyl CELL TECHNICIAN-BC Unavailable Unavailable Duvall, A Phyl CELL TECHNICIAN-BC Unavailable Unavailable Duvall, A Phyl CELL TECHNICIAN-BC Unavailable Unavailable Duvall, A Phyl CELL TECHNICIAN-BC Unavailable Unavailable Duvall, A Phyl CELL TECHNICIAN-BC Unavailable Unavailable Duvall, A Phyl CELL TECHNICIAN-BC Unavailable Unavailable Duvall, A Phyl CELL TECHNICIAN-BC Unavailable Unavailable Duvall, A Phyl CELL TECHNICIAN-BC Unavailable Unavailable Duvall, A Phyl CELL TECHNICIAN-BC Unavailable Unavailable Duvall, A Phyl CELL TECHNICIAN-BC Unavailable Unavailable Duvall, A Phyl CELL TECHNICIAN-BC Unavailable Unavailable Duvall, A Phyl CELL TECHNICIAN-BC Unavailable Unavailable Duvall, A Phyl CELL TECHNICIAN-BC Unavailable Unavailable Duvall, A Phyl CELL TECHNICIAN-BC Unavailable Unavailable Duvall, A Phyl CELL TECHNICIAN-BC Unavailable Unavailable Duvall, A Phyl CELL TECHNICIAN-BC Unavailable Unavailable Duvall, A Phyl CELL TECHNICIAN-BC Unavailable Unavailable Duvall, A Phyl CELL TECHNICIAN-BC Unavailable Unavailable Duvall, A Phyl CELL TECHNICIAN-BC Unavailable Unavailable Duvall, A Phyl CELL TECHNICIAN-BC Unavailable Unavailable Duvall, A Phyl CELL TECHNICIAN-BC Unavailable Unavailable Duvall, A Phyl CELL TECHNICIAN-BC Unavailable Unavailable Duvall, A Phyl CELL TECHNICIAN-BC Unavailable Unavailable Duvall, A Phyl CELL TECHNICIAN-BC Unavailable Unavailable Aminata, Savana Unavailable Unavailable Aminata, [...] is protected by Article 27-F of the [facility] Public Health law. If you continue you may have access to information: Regarding HIV / AIDS; Provided by facilities licensed or operated by the [facility] Office of Mental Health; or Provided by the [facility] Office for People With Developmental Disabilities. If such information is present, then the following [facility] mandated warning applies: This information has [...] law may result in a fine or shelter sentence or both. A general authorization for the release of medical or other information is NOT sufficient authorization for further disc losure. Family History Family Member Name Family Member Gender Family Member Status Date o f Status Description Data Source(s) Unknown Female Problem MEDENT (Family [facility]) Unknown Male Problem MEDENT ([facility] Unknown Unknown Problem MEDENT ([facility]) Encounters Encounter Providers Location Date Indications Data Source(s ) Unknown [address] [facility] [address] 02/05/2021 12:00:00 AM EST eCW1 ([facility]) (WC 1PN) WCenter 1st [address] [place] [address] 01/23/2021 12:00:00 AM EST eCW1 ([facility]) Unknown [address] [facility] [place] [address] 01/12/2021 12:00:00 AM EDT eCW1 ([facility]) Unknown [address] [facility] [place] [address] 01/04/2021 12:00:00 AM EDT eCW1 ([facility]) Unknown [address] [facility] [place] [address] 01/03/2021 12:00:00 AM EDT [facility]CW1 [facility] Unknown [address] [facility] [address] 01/01/2021 12:00:00 AM EDT eCW1 [facility] [place]) Outpatient Attender: Ky RODRIGUEZ [facility] 10/31/2020 01:00:00 PM EDT [facility] Outpatient Attender: Radha Duvall [facility]- Main Office 0 10/09/2020 11:30:00 AM EDT MEDALYSIA ([facility]) Outpatient Attender: NERI BATES PA-C 08/30/2020 05:00:00 PM [facility] Outpatient Attender: NAUN CARRINGTON FPMHNP 08/24/2020 01:00: 00 PM [facility] Outpatient Attender: Juju Lilly 08/24/2020 10:30:00 AM [facility] Outpatient Attender: Juju Lilly 08/16/2020 04:30:00 PM [facility] Outpatient Attender: Juju Lilly 08/09/2020 04:29:00 PM [facility] Admission cancelled. Disregard status an d admitted date. Outpatient Attender: NAUN ROLDAN 08/09/2020 03:30: 00 PM [facility] Outpatient Attender: Juju Lilly 08/07/2020 02:00:00 PM [facility] Outpatient Attender: Juju Lilly 08/02/2020 04:00:00 PM [facility] Outpatient Attender: Juju Lilly 07/31/2020 06:00:00 PM [facility] Outpatient [address] [facility] [address] 07/31/2020 12:00:00 AM EDT eCW1 ([facility]) Outpatient Attender: NAUN ROLDAN 07/27/2020 03:00: 00 PM [facility] Outpatient Attender: Juju Lilly 07/26/2020 05:00:00 PM [facility] Outpatient Attender: Juju Lilly 07/17/2020 09:59:00 AM [facility] Outpatient Attender: NAUN ROLDAN 07/13/2020 04:47: 00 PM [facility] Outpatient Attender: Juju LillyAttender: JUJU LILLY 07/10/2020 10:49:00 AM [facility] Outpatient Attender: Ky RODRIGUEZ [facility] 06/30/2020 01:10:00 PM EDT MEDENT ([facility]) Outpatient Attender: Savana Coates 06/27/2020 09:28:00 AM [facility] Outpatient Attender: Ky RODRIGUEZ [facility] 06/26/2020 11:00:00 AM EDT MEDENT ([facility]) Outpatient Attender: CHELSEA Kidd/Ivtete/Paulo/Cheryl baltazar 06/12/2020 01:00:00 PM EDT MEDENT ([facility]) [place] [address] [facility] [address] 06/09/2020 12:00:00 AM EDT eCW1 ([facility]) Outpatient Attender: Ky RODRIGUEZ [facility] 05/25/2020 01:40:00 PM EST MEDENT ([facility]) Outpatient Attender: CHELSEA Kidd/Ivette/Paulo/Cheryl baltazar 05/15/2020 01:15:00 PM EST MEDENT ([facility]) ( [place]) [facility] Nurse Visit [address] [place] [address] 05/12/2020 12:00:00 AM EST eCW1 ([facility]) [place]patient [address] [facility] [address] 05/01/2020 12:00:00 AM EST [facility]CW1 [facility] Outpatient Attender: Ky RODRIGUEZ [facility] 04/27/2020 01:30:00 PM EST MEDENT ([facility]) ( [place]) [facility] Post Op [address] [place] [address] 04/24/2020 12:00:00 AM EST eCW1 ([facility]) [place]patient [address] [facility] [address] 04/19/2020 12:00:00 AM EST eCW1 ([facility]) Unknown [address] [facility] [place] [address] 04/19/2020 12:00:00 AM EST eCW1 [facility]) Unknown [address] [facility] [place] [address] 04/17/2020 12:00:00 AM EST eCW1 [facility]) Unknown [address] [facility] [place] [address] 04/13/2020 12:00:00 AM EST eCW1 [facility]) Outpatient Attender: [place] Chavessuant: PHYSICIAN NO N-STAFF 04/12/2020 04:52:00 PM EST - 04/12/2020 05:52:00 PM EST [facility] Outpatient Attender: Ky RODRIGUEZ [facility] 04/12/2020 02:30:00 PM EST MEDENT ([facility]) ([facility]) [facility] Nurse Visit [address] [place] [address] 02/25/2020 12:00:00 AM EST eCW1 ([facility]) Outpatient Attender: Ky RODRIGUEZ [facility] 02/18/2020 12:40:00 PM EST MEDENT ([facility]) Outpatient Attender: Ky RODRIGUEZ [facility] 01/31/2020 12:30:00 PM EST MEDENT ([facility]) Outpatient Attender: Jesus Manuel Barrera/Ivette/Paulo/Daniel ndl 01/04/2020 03:30:00 PM EDT MEDENT ([facility]) Outpatient Attender: Ky RODRIGUEZ [facility] 12/30/2019 01:00:00 PM EDT MEDENT ([facility]) Immunizations Vaccine Date Status Description Data Source(s) COVID-19 VACCINE Moderna 01/23/2021 12:00:00 AM EST completed [facility] Vaccine Series Complete: YESThis Data wa s Submitted to [facility] [employer]. COVID-19 VACCINE Moderna 11/16/2020 12:00:00 AM EDT completed [facility] Vaccine Series Complete: NOThis Data was Submitted to [facility] [employer]. 05/12/2020 10:27:00 AM EST completed e CW1 ([facility]) 05/12/2020 10:27:00 AM EST completed e CW1 ([facility]) 05/12/2020 10:27:00 AM EST completed e CW1 ([facility]) 05/12/2020 10:27:00 AM EST completed e CW1 ([facility]) 05/12/2020 10:27:00 AM EST completed e CW1 ([facility]) 05/12/2020 10:27:00 AM EST completed e CW1 ([facility]) 05/12/2020 10:27:00 AM EST completed e CW1 ([facility]) 05/12/2020 10:27:00 AM EST completed e CW1 ([facility]) 05/12/2020 10:27:00 AM EST completed e CW1 ([facility]) 02/25/2020 10:37:00 AM EST completed e CW1 ([facility]) 02/25/2020 10:37:00 AM EST completed e CW1 ([facility]) 02/25/2020 10:37:00 AM EST completed e CW1 ([facility]) 02/25/2020 10:37:00 AM EST completed e CW1 ([facility]) 02/25/2020 10:37:00 AM EST completed e CW1 ([facility]) 02/25/2020 10:37:00 AM EST completed e CW1 ([facility]) 02/25/2020 10:37:00 AM EST completed e CW1 ([facility]) 02/25/2020 10:37:00 AM EST completed e CW1 ([facility]) 02/25/2020 10:37:00 AM EST completed e CW1 ([facility]) 02/25/2020 10:37:00 AM EST completed e CW1 ([facility]) 02/25/2020 10:37:00 AM EST completed e CW1 ([facility]) 02/25/2020 10:37:00 AM EST completed e CW1 ([facility]) 02/25/2020 10:37:00 AM EST completed e CW1 ([facility]) 02/25/2020 10:37:00 AM EST completed e CW1 ([facility]) 02/25/2020 10:37:00 AM EST completed e CW1 ([facility]) New in 2011. IIV4 01/31/2020 01:00:00 PM EST completed MEDENT ([facility]) Medications Medication Brand Name Start Date Product Form Dose Route Admi nistrative Instructions Pharmacy Instructions Status Indications Reaction Description Data Source(s) Sulfamethoxazole 800 MG / Trimethoprim 160 MG Oral Tablet [B actrim] Bactrim DS 09/27/2020 12:00:00 AM EDT ORAL active MEDENT ([facility]) Sulfamethoxazole 800 MG / Trimethoprim 160 MG Oral Tablet [B actrim] Bactrim DS 06/26/2020 12:00:00 AM EDT ORAL completed MEDENT ([facility]) pantoprazole 40 MG Delayed Release Oral Tablet Pantoprazole Sodium 06/16/2020 12:00:00 AM EDT active M EDENT ([facility] ) Tretinoin 0.25 MG/ML Topical Cream Tretinoin 04/29/2020 12:00:00 AM EST active MEDENT ([facility]) Ibuprofen 800 MG Oral Tablet Ibuprofen 04/21/2020 12:00:00 AM EST ORAL active MEDENT ([facility]) Sulfamethoxazole 800 MG / Trimethoprim 160 MG Oral Tablet [B actrim] Bactrim DS 04/12/2020 12:00:00 AM EST ORAL completed MEDENT ([facility]) 24 HR Bupropion Hydrochloride 150 MG Extended Release Oral Tablet Bupropion Hydrochloride ER (XL) 02/18/2020 12:00:00 AM EST ORAL c ompleted MEDENT ([facility]) 24 HR venlafaxine 37.5 MG Extended Release Oral Capsule [Eff exor] Effexor XR 01/31/2020 12:00:00 AM EST ORAL completed MEDENT ([facility]) Sucralfate 100 MG/ML Oral Suspension [Carafate] Carafate 12/30/2019 12:00:00 AM EDT ORAL completed MEDENT ([facility]) 24 HR Amphetamine aspartate 5 MG / Amphe tamine Sulfate 5 MG / Dextroamphetamine saccharate 5 MG / Dextroamphetamine Sulfate 5 MG Extended Release Oral Capsule [Adderall] Adderall XR 12/30/2019 12:00:00 AM EDT ORAL active MEDENT ([facility]) pantoprazole 40 MG Delayed Release Oral Tablet [Protonix] Pr otonix 12/30/2019 12:00:00 AM EDT ORAL active M EDENT ([facility]) Insurance Providers Payer name Policy type / Coverage type Policy ID Covered republican ID Covered republican's relationship to arango Policy Arango Plan Information [facility] [id number] [facility] [id number] [facility] [id number] [facility] [id number] [facility] - [facility]/P [id number] 01 [id number] O UNAVAILABLE UNAVAILA BLE [facility] O [id number] S [id number] [facility] 2017 Commercial [id number] Family Dependent [id number] [facility] 2017 Commercial [id number] Family Dependent [id number] [facility] (2017) Health Maintenance Organization (HMO) [id number] Family Dependent [id number] [place] [address] Commercial [id number] Family Dependent [id number] [facility] (2017) Health Maintenance Organization (HMO) [id number] Family Dependent [id number] SELF PAY O UNAVAILABLE S UNAVAILA BLE SELF PAY ONLY [id number] SP [id number] [facility] [id number] [facility] [id number] [facility] [id number] [facility] [id number] [facility] [id number] Family Dependent [id number] Problems, Conditions, and Diagnoses Code Display Name Description Problem Type Effective Dates Data Source(s) F43.20 Adjustment disorder, unspecified ADJUSTMENT DISO RDER, UNSPECIFIED Diagnosis 08/30/2020 05:00:00 PM [facility] F41.9 Anxiety disorder, unspecified ANXIETY DISORDER, UNSPEC IFIED Diagnosis 08/30/2020 05:00:00 PM [facility] F31.9 Bipolar disorder, unspecified BIPOLAR DISORDER, UNSPEC IFIED Diagnosis 08/30/2020 05:00:00 PM [facility] F43.10 Post-traumatic stress disorder, unspecif ied POST-TRAUMATIC STRESS DISORDER, UNSPECIFIED Diagnosis 08/30/2020 05:00:00 PM [facility] Dodie livingston G43.009 Migraine without aura, not intractable, without status migrainosus MIGRAINE W/O AURA, NOT INTRACTABLE, W/O STATUS AISHA Diagnosis 03:00:00 PM [facility] F32.9 Major depressive disorder, single episod e, unspecified MAJOR DEPRESSIVE DISORDER, SINGLE EPISODE, UNSPECI Diagnosis 07/26/2020 05:00:00 PM [facility] F41.1 Generalized anxiety disorder GENERALIZED ANXIETY DISOR LULU Diagnosis 07/26/2020 05:00:00 PM [facility] F39 Unspecified mood [affective] disorder UNSPECIFIE D MOOD [AFFECTIVE] DISORDER Diagnosis 07/13/2020 04:47:00 PM [facility] F31.30 Bipolar disorder, current ep isode depressed, mild or moderate severity, unspecified BIPOLAR DISORD, CRNT EPSD DEPRESS, MILD OR MOD SEV Diagnosis 06/27/2020 09:28:00 AM [facility] R928 Other abnormal and inconclusive findings on diagnostic imaging of breast Other abnormal and inconclusive findings on diagnostic imaging of breast Diagnosis 04/12/2020 04:52:00 PM [facility] N611 Abscess of the breast and nipple Abscess of the breast and nipple Diagnosis 04/12/2020 04:52:00 PM [facility] Z34.80 care Supervision of other normal P vladimir 01/19/2021 12:00:00 AM EDT eC1 ([facility]) N92.6 Irregular periods Irregular bleeding Problem 01/11/2021 12:00:00 AM EDT eCW1 ([facility]) Z90.11 [id number] Absence of right breast Problem 04/19/2020 1 2:00:00 AM EST [facility] ([facility]) J45.40 Uncomplicated moderate persistent asthma Uncomplicated moderate persistent asthma Problem 12/30/2019 12:00:00 AM EDT CLIFF ([facility]) K21.00 Gastro-esophageal reflux disease with es ophagitis Gastro-esophageal reflux disease with esophagitis Problem 12/30/2019 12:00:00 AM EDT Annemarie SERNA ([facility]) L40.9 Psoriasis Psoriasis Problem 12/30/2019 12:00:00 AM ED T MEDENT ([facility]) Surgeries/Procedures Procedure Description Date Indications Data Source(s) OFFICE OUTPATIENT VISIT 15 MINUTES 10/31/2020 12:00:00 AM EDT MEDENT ([facility]) OFFICE OUTPATIENT VISIT 25 MINUTES 10/09/2020 12:00:00 AM EDT MEDENT ([facility]) OFFICE OUTPATIENT VISIT 15 MINUTES 06/30/2020 12:00:00 AM EDT MEDENT ([facility]) OFFICE OUTPATIENT VISIT 15 MINUTES 06/26/2020 12:00:00 AM EDT MEDENT ([facility]) OFFICE OUTPATIENT VISIT 15 MINUTES 05/25/2020 12:00:00 AM EST MEDENT ([facility]) Injection, medroxyprogesterone acetate for contraceptive use , 150 mg 05/12/2020 12:00:00 AM EST eCW1 ([facility]) Injection, medroxyprogesterone acetate for contraceptive use , 150 mg 02/25/2020 12:00:00 AM EST eCW1 ([facility]) Results ID Date Data Source [id number] 01/31/2021 07:34:00 AM EST MEDENT ([facility]) Name Value Range Interpretation Code Description Data Agnieszka rce(s) Supporting Document(s) Bacteria identified in Urine by Culture Laboratory test result Normal (applies to non-numeric results) [facility] ([facility]) FULL REPORT IN LAB NOTES (eCW and Medent ). NO GROWTH CLINICAL SIGNIFICANCE 2 OR MORE ORGANISMS ID Date Data Source [id number] 01/31/2021 07:34:00 AM EST MEDENT ([facility]) Name Value Range Interpretation Code Description Data Agnieszka rce(s) Supporting Document(s) Chlamydia Dna Amplification Laboratory test result Normal (applies to non- numeric results) [facility] ([facility]) A negative test result does not exclude the possibility of infection because test results may be affected by improper specimen collection, technical error, specimen mix-up, concurrent antibiotic therapy, or the number of organisms in the specimen which may be below the sensitivity of the test. GC Dna Amplification Laboratory test result Norm al (applies to non-numeric results) [facility]) A negative test result does not exclude the possibility of infection because test results may be affected by improper specimen collection, technical error, specimen mix-up, concurrent antibiotic therapy, or the number of organisms in the specimen which may be below the sensitivity of the test. ID Date Data Source [id number] 01/31/2021 07:34:00 AM EST [facility]) Name Value Range Interpretation Code Description Data Agnieszka rce(s) Supporting Document(s) Blood group antibodies identified in Serum or Plasma Laboratory test result Normal (applies to non-numeric results) [facility]) ID Date Data Source [id number] 01/31/2021 07:34:00 AM EST [facility]) Name Value Range Interpretation Code Description Data Agnieszka rce(s) Supporting Document(s) Blood Type Laboratory test result Normal (applies to non-n umeric results) [facility]) AB Screen PNP1 Gel (Vis) Laboratory test result Normal (applies to non- numeric results) [facility]) ID Date Data Source [id number] 01/31/2021 07:34:00 AM EST [facility]) Name Value Range Interpretation Code Description Data Agnieszka rce(s) Supporting Document(s) Hepatitis B virus surface Ag [Presence] in Serum or Pl asma by Immunoassay Laboratory test result Normal (applies to non-numeric results) [facility]) <content>note:<nlbl:demographic_changed> </content>
<content></content> Hepatitis C virus Ab [Units/volume] in Serum by Immunoassay 0.1 INDEX Normal (applies to non-numeric results) [facility]) Negative Not infected with HCV, unless recent infection is suspected or other evidence exists to indicate HCV infection. Reagin Ab [Presence] in Serum by RPR Laboratory test result Normal (applies to non-numeric results) [facility]) <content>note:<nlbl:demographic_changed> </content>
<content></content> Rubella virus IgG Ab [Units/volume] in Serum or Plasma by Immunoassay Laboratory test result Normal (applies to non-numeric results) [facility] ([facility]) THE RUBELLA RESULT WAS OBTAINED WITH THE CENTAUR RUBELLA IGG ASSAY. IgG VALUES FROM ANOTHER MANUFACTURERS' METHOD MAY NOT BE USED INTERCHANGEABLY. MAGNITUDE OF LEVEL CANNOT BE CORRELATED TO AN ENDPOINT TITER. SUSCEPTIBLE 0.00-5.00 IU/ML EQUIVOCAL 5.01-9.99 IU/ML IMMUNE > 10.00 IU/ML HIV 1+2 Ab [Presence] in Serum Laboratory test result Normal (applies to non- numeric results) [facility] ([facility]) <content>This assay was performed utiliz ing a [...] is</content>
<content>99.6-99.8%.</content>
<content></content> ID Date Data Source [id number] 01/31/2021 07:34:00 AM EST [facility] ([facility]) Name Value Range Interpretation Code Description Data Agnieszka rce(s) Supporting Document(s) White Blood Count 9.8 10 4.0-10.0 Normal (applies to non-numeri c results) [facility] ([facility]) Red Blood Count 4.66 10 4.00-5.40 Normal (applies to non-numeric results) [facility] ([facility]) Hematocrit 42.5 % 36.0-47.0 Normal (applies to non-numeric resul ts) [facility] ([facility]) Hemoglobin 13.6 g/dL 12.0-15.5 Normal (applies to non-numeric resul ts) [facility] ([facility]) Mean Corpuscular Volume 91.2 fl 80.0-96.0 Normal ( applies to non-numeric results) [facility] ([facility]) Mean Corpuscular Hemoglobin 29.2 pg 27.0-33.0 Norm al (applies to non-numeric results) [facility] ([facility]) Red Cell Distribution Width 12.1 % 11.5-14.5 Norm al (applies to non-numeric results) [facility] ([facility]) Mean Corpuscular HGB Conc 32.0 g/dL 32.0-36.5 Normal (applies to non-numeric results) [facility] ([facility]) Platelet Count, Automated 337 10 150-450 Normal (applies to non-numeric results) [facility] ([facility]) Nucleated Red Blood Cell % 0.0 % 0-0 Normal (applies to n on-numeric results) [facility] ([facility]) ID Date Data Source SYPHILIS (RPR SCREEN) 01/31/2021 12:00:00 AM EST W1 ([facility]) Name Value Range Interpretation Code Description Data Agnieszka rce(s) Supporting Document(s) NONREACTIVE NONREACTIVE SYPHILIS W1 ([facility]) ID Date Data Source [id number] 01/31/2021 12:00:00 AM EST eCW1 ([facility]) Name Value Range Interpretation Code Description Data Agnieszka rce(s) Supporting Document(s) HIV 1+2 Ab+HIV1 p24 Ag [Presence] in Serum or Plasma by Immu noassay NEGATIVE NEGATIVE HIV 1&2 SCREEN CENTAUR eCW1 ([facility]) ID Date Data Source HEPATITIS C ANTIBODY INDEX 01/31/2021 12:00:00 AM EST eCW1 ( [facility]) Name Value Range Interpretation Code Description Data Agnieszka rce(s) Supporting Document(s) 0.1 <0.8 HEPATITIS C VIRUS PRAVIN INDEX eC W1 ([facility]) ID Date Data Source CBC - Complete Blood Count 01/31/2021 12:00:00 AM EST eCW1 ( [facility]) Name Value Range Interpretation Code Description Data Agnieszka rce(s) Supporting Document(s) 9.8 4.0-10.0 WHITE BLOOD COUNT eCW1 ([facility]) 42.5 36.0-47.0 HEMATOCRIT eCW1 ([facility]) 4.66 4.00-5.40 RED BLOOD COUNT eCW1 ([facility]) 13.6 12.0-15.5 HEMOGLOBIN eCW1 ([facility]) 91.2 80.0-96.0 MEAN CORPUSCULAR VOLUME e CW1 ([facility]) 29.2 27.0-33.0 MEAN CORPUSCULAR HEMOGLOB IN eCW1 ([facility]) 32.0 32.0-36.5 MEAN CORPUSCULAR HGB CONC eCW1 ([facility]) 337 150-450 PLATELET COUNT, AUTOMATED eCW1 ([facility]) 12.1 11.5-14.5 RED CELL DISTRIBUTION WID TH eCW1 ([facility]) ID Date Data Source [id number] 01/31/2021 12:00:00 AM EST eCW1 ([facility]) Name Value Range Interpretation Code Description Data Agnieszka rce(s) Supporting Document(s) NEGATIVE NEGATIVE HBsAg eCW1 ([facility]) ID Date Data Source RUBELLA IMMUNE STATUS IgG 01/31/2021 12:00:00 AM EST eCW1 ([facility]) Name Value Range Interpretation Code Description Data Agnieszka rce(s) Supporting Document(s) IMMUNE IMMUNE RUBELLA IgG QUALITATIVE eCW1 ( [facility]) ID Date Data Source [id number] 01/13/2021 02:29:00 PM EDT [facility] ([facility]) Name Value Range Interpretation Code Description Data Agnieszka rce(s) Supporting Document(s) Rh immune globulin screen [interpretation] Laboratory test result [facility] ([facility]) TRANSFUSED PRODUCT: RHOGAM COUNT: 1 ID Date Data Source [id number] 10/09/2020 11:53:00 AM EDT [facility] ([facility]) Name Value Range Interpretation Code Description Data Agnieszka rce(s) Supporting Document(s) Laboratory test finding (navigational concept) Laboratory test result [facility] ([facility]) ID Date Data Source [id number] 10/09/2020 11:53:00 AM EDT [facility] ([facility]) Name Value Range Interpretation Code Description Data Agnieszka rce(s) Supporting Document(s) Glucose [Mass/volume] in Serum or Plasma 124 mg/dL 65-99 Above high normal [facility] ([facility]) Urea nitrogen [Mass/volume] in Serum or Plasma 10 mg/dL 6-20 [facility] ([facility]) Creatinine [Mass/volume] in Serum or Plasma 0.63 mg/dL 0.57-1.00 [facility] ([facility]) eGFR If NonAfricn Am 118 mL/min/1.73 [facility] ([facility]) Urea nitrogen/Creatinine [Mass Ratio] in Serum or Plasma 16 9 -23 [facility] ([facility]) eGFR If Africn Am 136 mL/min/1.73 [facility] ([facility]) [facility] currently reports eGFR in comp liance with the current recommendations of the National Kidney Foundation. [facility] will update reporting as new guidelines are published from the NKF-ASN Task force. Potassium [Moles/volume] in Serum or Plasma 4.2 mmol/L 3.5-5.2 [facility] ([facility]) Sodium [Moles/volume] in Serum or Plasma 139 mmol/L 134-144 [facility] ([facility]) Calcium [Mass/volume] in Serum or Plasma 9.6 mg/dL 8.7-10.2 [facility] ([facility]) Carbon dioxide, total [Moles/volume] in Serum or Plasma 23 mmol/L 20 -29 [facility] ([facility]) Chloride [Moles/volume] in Serum or Plasma 105 mmol/L 96-106 [facility] ([facility]) Albumin [Mass/volume] in Serum or Plasma 4.9 g/dL 3.8-4.8 Above high normal [facility] ([facility]) Phosphate [Moles/volume] in Serum or Plasma 3.3 mg/dL 3.0-4.3 [facility] ([facility]) ID Date Data Source [id number] 10/09/2020 11:53:00 AM EDT [facility] ([facility]) Name Value Range Interpretation Code Description Data Agnieszka rce(s) Supporting Document(s) Laboratory test finding (navigational concept) Laboratory test result [facility] ([facility]) ID Date Data Source [id number] 10/09/2020 11:53:00 AM EDT [facility] ([facility]) Name Value Range Interpretation Code Description Data Agnieszka rce(s) Supporting Document(s) Laboratory test finding (navigational concept) Laboratory test result [facility] ([facility]) The QuantiFERON-TB Gold Plus result is d etermined by subtracting the Nil value from either TB antigen (Ag) tube. The mitogen tube serves as a control for the test. Mycobacterium tuberculosis stimulated ga mma interferon [Units/volume] corrected for background in Blood 0.00 IU/ml [facility] ([facility]) Laboratory test finding (navigational concept) Laboratory test result [facility] ([facility]) QuantiFERON TB2 Ag Value 0.00 IU/ml [facility] NT ([facility]) Laboratory test finding (navigational concept) 0.00 IU/ml [facility] ([facility]) Laboratory test finding (navigational concept) Laboratory test result [facility] ([facility]) The specimen received for QuantiFERON te sting was incubated by the ordering institution. Specific procedures outlined in our Directory of Services and in the package insert for the QuantiFERON Gold (In Tube) test must be followed to enabl e for proper stimulation of cells for the production of interferon gamma. Chemiluminescence immunoassay methodology ID Date Data Source [id number] 10/09/2020 11:53:00 AM EDT [facility] ([facility]) Name Value Range Interpretation Code Description Data Agnieszka rce(s) Supporting Document(s) Protein [Mass/volume] in Serum or Plasma 7.4 g/dL 6.0-8.5 [facility] ([facility]) Bilirubin.total [Mass/volume] in Serum or Plasma 0.2 mg/dL 0.0-1.2 [facility] ([facility]) Bilirubin.conjugated [Mass/volume] in Serum or Plasma 0.08 mg/dL 0.00 -0.40 [facility] ([facility]) Alkaline phosphatase [Enzymatic activity/volume] in Serum or Plasma 82 IU/L 48-121 [facility] ([facility]) Alanine aminotransferase [Enzymatic activity/volume] in Seru m or Plasma 57 IU/L 0-32 Above high normal [facility] ([facility] Aspartate aminotransferase [Enzymatic activity/volume] in Serum or Plasma 34 IU/L 0-40 [facility] ([facility] ID Date Data Source [id number] 10/09/2020 11:53:00 AM EDT [facility] ([facility]) Name Value Range Interpretation Code Description Data Agnieszka rce(s) Supporting Document(s) Hepatitis A virus IgM Ab [Units/volume] in Serum by Im munoassay Laboratory test result [facility] Hepatitis B virus core Ab [Presence] in Serum or Plasm a by Immunoassay Laboratory [facility] Hepatitis A virus Ab [Presence] in Serum by Immunoassay Labo ratory test result Abnormal (applies to non-numeric results) [facility] ([facility]) Hepatitis B virus core Ab [Presence] in Serum or Plasm a by Immunoassay Laboratory test result [facility]) Non Reactive: Inconsistent with immunity , less than 10 mIU/mL Reactive: Consistent with immunity, greater than 9.9 mIU/mL ID Date Data Source [id number] 10/09/2020 11:53:00 AM EDT [facility] ([facility]) Name Value Range Interpretation Code Description Data Agnieszka rce(s) Supporting Document(s) Leukocytes [#/volume] in Blood by Automated count 8.7 x10E3/uL 3.4-10 .8 [facility] ([facility]) Erythrocytes [#/volume] in Blood by Automated count 4.89 x10E6/uL 3.7 7-5.28 [facility] ([facility]) Hemoglobin [Mass/volume] in Blood 14.3 g/dL 11.1-15.9 [facility] ([facility]) Hematocrit [Volume Fraction] of Blood by Automated count 43.6 % 3 4.0-46.6 [facility] ([facility]) Erythrocyte mean corpuscular volume [Entitic volume] by Auto mated count 89 fL 79-97 [facility] ([facility]) Erythrocyte distribution width [Ratio] by Automated count 12.8 % 11.7-15.4 [facility] ([facility]) Erythrocyte mean corpuscular hemoglobin [Entitic mass] by Automated count 29.2 pg 26.6-33.0 [facility] ([facility]) Erythrocyte mean corpuscular hemoglobin concentration [Mass/volume] by Automated count 32.8 g/dL 31.5-35.7 [facility] ([facility]) Neutrophils/100 leukocytes in Blood by Automated count 59 % [facility] ([facility]) Platelets [#/volume] in Blood by Automated count 416 x10E3/uL 150-450 [facility] ([facility]) Lymphocytes/100 leukocytes in Blood by Automated count 28 % [facility] ([facility]) Eosinophils/100 leukocytes in Blood by Automated count 4 % [facility] ([facility]) Monocytes/100 leukocytes in Blood by Automated count 8 % [facility] ([facility]) Immature cells [#/volume] in Blood Laboratory test result [facility] ([facility]) Basophils/100 leukocytes in Blood by Automated count 1 % [facility] ([facility]) Neutrophils [#/volume] in Blood by Automated count 5.2 x10E3/uL 1.4-7 .0 [facility] ([facility]) Monocytes [#/volume] in Blood 0.7 x10E3/uL 0.1-0.9 [facility] ([facility]) Lymphocytes [#/volume] in Blood 2.4 x10E3/uL 0.7-3.1 [facility] ([facility]) Basophils [#/volume] in Blood by Automated count 0.1 x10E3/uL 0.0-0.2 [facility] ([facility]) Eosinophils [#/volume] in Blood by Automated count 0.3 x10E3/uL 0.0-0 .4 [facility] ([facility]) Immature granulocytes [#/volume] in Blood by Automated count 0.0 x10E3/uL 0.0-0.1 [facility] ([facility]) Immature granulocytes/100 leukocytes in Blood by Automated count 0 % [facility] ([facility]) Nucleated erythrocytes/100 leukocytes [Ratio] in Blood by Automated count Laboratory test result [facility] ([facility]) Morphology [Interpretation] in Blood Narrative Laboratory test result [facility] ([facility]) ID Date Data Source [id number] 09/21/2020 07:12:00 AM EDT [facility] ([facility]) Name Value Range Interpretation Code Description Data Agnieszka rce(s) Supporting Document(s) Laboratory test finding (navigational concept) Laboratory test result [facility] ([facility]) Will treat for 14 days with Bactrim DS ID Date Data Source [id number] 09/21/2020 07:12:00 AM EDT [facility] ([facility]) Name Value Range Interpretation Code Description Data Agnieszka rce(s) Supporting Document(s) Bacteria identified in Unspecified specimen by Culture Laborator y test result Abnormal (applies to non-numeric results) [facility] ([facility]) Will treat for 14 days with Bactrim DS Bacteria identified in Unspecified specimen by Aerobe culture Laboratory test result Abnormal (applies to non-numeric results) [facility] ([facility]) Will treat for 14 days with Bactrim DS Bacteria identified in Unspecified specimen by Culture Laborator y test result [facility] ([facility]) Will treat for 14 days with Bactrim DS Other Antibiotic [Susceptibility] Laboratory test result [facility] ([facility]) Will treat for 14 days with Bactrim DS ID Date Data Source [id number] 09/20/2020 05:33:00 PM EDT [facility] ([facility]) Name Value Range Interpretation Code Description Data Agnieszka rce(s) Supporting Document(s) Bacteria identified in Unspecified specimen by Aerobe culture Laboratory test result [facility] ([facility]) ID Date Data Source [id number] 06/28/2020 10:43:00 PM EDT [facility] ([facility]) Name Value Range Interpretation Code Description Data Agnieszka rce(s) Supporting Document(s) Gram Stain Laboratory test result Normal (applies to non-n umeric results) [facility] ([facility]) FEW WBCS MODERATE RBCS FEW GRAM POSITIVE COCCI IN CLUSTERS Wound Culture Laboratory test result Normal (applies t o non-numeric results) [facility] ([facility]) <content>FULL REPORT IN LAB NOTES (eCW a [...]
<content>CLIDAMYCIN SENSITIVE.</content>
<content></content> ID Date Data Source [id number] 05/26/2020 02:53:00 AM EST [facility] ([facility], ) Name Value Range Interpretation Code Description Data [facility] rce(s) Supporting Document(s) Surgical pathology study Laboratory test result [facility] ([facility], ) FINAL DIAGNOSIS Esophagus, biopsy: Squamous mucosa [...] MD 05/29/2020 1124 ID Date Data Source [id number] 05/25/2020 11:13:00 PM EST [facility] ([facility]) Name Value Range Interpretation Code Description Data Agnieszka [facility](s) Supporting Document(s) Influenza A Amplification Laboratory test result Normal (applies to non- numeric results) [facility] ([facility]) Negative results do not preclude influen za or RSV virus infection and should not be used as the sole basis for treatment or other patient management decisions. Influenza B Amplification Laboratory test result Normal (applies to non- numeric results) [facility] ([facility]) Negative results do not preclude influen za or RSV virus infection and should not be used as the sole basis for treatment or other patient management decisions. RSV Amplification Laboratory test result Normal (applies to non-numeric results) [facility] ([facility]) Negative results do not preclude influen za or RSV virus infection and should not be used as the sole basis for treatment or other patient management decisions. Laboratory test finding (navigational concept) Laboratory test r esult Normal (applies to non-numeric results) [facility] ([facility]) A false negative result may occur [...] pathogens. DISCLAIMER: Testing was performed using the [employer] SARS-CoV-2 test. This test was developed and its performance characteristics determined by [employer]. This test has not been FDA cleared [...] or revoked sooner. ID Date Data Source [id number] 05/25/2020 11:13:00 PM EST [facility] ([facility], ) Name Value Range Interpretation Code Description Data Agnieszka rce(s) Supporting Document(s) Influenza B Amplification Laboratory test result Normal (applies to non- numeric results) [facility] ([facility], ) Negative results do not preclude influen za or RSV virus infection and should not be used as the sole basis for treatment or other patient management decisions. Influenza A Amplification Laboratory test result Normal (applies to non- numeric results) [facility] ([facility], ) Negative results do not preclude influen za or RSV virus infection and should not be used as the sole basis for treatment or other patient management decisions. Laboratory test finding (navigational concept) Laboratory test r esult Normal (applies to non-numeric results) [facility] ([facility] A false negative result may [...] pathogens. DISCLAIMER: Testing was performed using the [employer] SARS-CoV-2 test. This test was developed and its performance characteristics determined by [employer]. This test has not been FDA cleared [...] test result Normal (applies to non-numeric results) [facility] ([facility], ) Negative results do not preclude influen za or RSV virus infection and should not be used as the sole basis for treatment or other patient management decisions. ID Date Data Source [id number] 05/25/2020 11:13:00 PM EST [facility] Name Value Range Interpretation Code Description Data Agnieszka rce(s) Supporting Document(s) SARS coronavirus 2 RNA [Presence] in Res piratory specimen by ISSA with probe detection NEGATIVE [place] This lab was ordered by [facility] a nd reported by [facility]. ID Date Data Source [id number] 05/25/2020 10:19:00 PM EST [facility] ([facility]) Name Value Range Interpretation Code Description Data Agnieszka rce(s) Supporting Document(s) Laboratory test finding (navigational concept) 45.0 % 3 8.0-51.0 Normal (applies to non-numeric results) [facility] ([facility]) Laboratory test finding (navigational concept) 98 mg/dL 7 0-105 Normal (applies to non-numeric results) [facility] ([facility]) Laboratory test finding (navigational concept) 143 meq/L 1 36-145 Normal (applies to non-numeric results) [facility] ([facility]) Laboratory test finding (navigational concept) 4.1 meq/L 3 .5-5.1 Normal (applies to non-numeric results) [facility] ([facility]) Laboratory test finding (navigational concept) 5.0 mg/dL 4 .5-5.3 Normal (applies to non-numeric results) [facility] ([facility]) Laboratory test finding (navigational concept) 106 meq/L 9 8-109 Normal (applies to non-numeric results) [facility] ([facility]) Laboratory test finding (navigational concept) 27.0 MM/L 2 3.0-27.0 Normal (applies to non-numeric results) [facility] ([facility]) Laboratory test finding (navigational concept) 13 mg/dL 8 -26 Normal (applies to non-numeric results) [facility] ([facility]) Laboratory test finding (navigational concept) 0.7 mg/dL 0 .6-1.3 Normal (applies to non-numeric results) [facility] [place]) ID Date Data Source [id number] 05/25/2020 09:57:00 PM EST [facility] ([facility]) Name Value Range Interpretation Code Description Data Agnieszka rce(s) Supporting Document(s) Glucose, Fasting 97 mg/dL 70-100 Normal (applies to non-numeric results) [facility] ([facility]) Blood Urea Nitrogen 13 mg/dL 7-18 Normal (applies to non-nume hailey results) [facility] ([facility]) Creatinine For GFR 0.83 mg/dL 0.55-1.30 Normal (applies to non -numeric results) [facility] ([facility]) Glomerular Filtration Rate Laboratory test result Normal (applies to non- numeric results) [facility] ([facility]) <content>Units are mL/min/1.73 m2</content>
<content></content>
<content>Chronic Kidney Disease Staging per NKF:</content>
<content></content>
<content>Stage I & II GFR >=60 Normal to Mildly Decreased</content>
<content>Stage III GFR 30- 59 Moderately Decreased</content>
<content>Stage IV GFR 15-29 Severely Decreased</content>
<content>Stage V GFR <15 Very Little GFR Left</content>
<content>ESRD GFR <15 on TRAFFIC DIRECTOR</content>
<content></content> Sodium Level 142 meq/L 136-145 Normal (applies to non-numeric res ults) [facility] ([facility]) Potassium Serum 4.2 meq/L 3.5-5.1 Normal (applies to non-numeric results) [facility]) Chloride Level 110 meq/L 98-107 Above high normal [facility] ([facility]) Carbon Dioxide Level 27 meq/L 21-32 Normal (applies to non-num roxie results) [facility] ([facility]) Anion Gap 5 meq/L 8-16 Below low normal [facility] ( [facility]) Calcium Level 9.3 mg/dL 8.5-10.1 Normal (applies to non-numeric re sults) [facility] ([facility]) ID Date Data Source [id number] 05/25/2020 09:57:00 PM EST [facility] ([facility]) Name Value Range Interpretation Code Description Data Agnieszka rce(s) Supporting Document(s) Red Blood Count 4.97 10 4.00-5.40 Normal (applies to non-numeric results) [facility] ([facility]) White Blood Count 8.9 10 4.0-10.0 Normal (applies to non-numeri c results) [facility] ([facility]) Hemoglobin 14.3 g/dL 12.0-15.5 Normal (applies to non-numeric resul ts) [facility] ([facility]) Hematocrit 44.6 % 36.0-47.0 Normal (applies to non-numeric resul ts) [facility] ([facility]) Mean Corpuscular Volume 89.7 fl 80.0-96.0 Normal ( applies to non-numeric results) [facility] ([facility]) Mean Corpuscular Hemoglobin 28.8 pg 27.0-33.0 Norm al (applies to non-numeric results) [facility] ([facility]) Mean Corpuscular HGB Conc 32.1 g/dL 32.0-36.5 Normal (applies to non-numeric results) [facility] ([facility]) Red Cell Distribution Width 13.0 % 11.5-14.5 Norm al (applies to non-numeric results) [facility] ([facility]) Platelet Count, Automated 358 10 150-450 Normal (applies to non-numeric results) [facility] ([facility]) Neutrophils % 51.3 % 36.0-66.0 Normal (applies to non-numeric re sults) [facility] ([facility]) Lymph % 33.4 % 24.0-44.0 Normal (applies to non-numeric resul ts) [facility] ([facility]) Eos % 6.5 % 0.0-3.0 Above high normal [facility] ([facility]) [place] % 7.8 % 2.0-8.0 Normal (applies to non-numeric resul ts) [facility] ([facility]) Immature Granulocyte % 0.3 % 0-3.0 Normal (applies to non-n umeric results) [facility] ([facility]) Baso % 0.7 % 0.0-1.0 Normal (applies to non-numeric resul ts) [facility] ([facility]) Nucleated Red Blood Cell % 0.0 % 0-0 Normal (applies to n on-numeric results) [facility] ([facility]) Neutrophils # 4.6 10 1.5-8.5 Normal (applies to non-numeric re sults) [facility] ([facility]) Lymph # 3.0 10 1.5-5.0 Normal (applies to non-numeric resul ts) [facility] ([facility]) Eos # 0.6 10 0.0-0.5 Above high normal [facility] ([facility]) [place] # 0.7 10 0.0-0.8 Normal (applies to non-numeric resul ts) [facility] ([facility]) Baso # 0.1 10 0.0-0.2 Normal (applies to non-numeric resul ts) [facility] ([facility]) ID Date Data Source [id number] 04/19/2020 04:17:00 PM EST [facility] ([facility], ) Name Value Range Interpretation Code Description Data Agnieszka rce(s) Supporting Document(s) Blood group antibody screen [Presence] in Serum or Alyssa sma Laboratory test result Normal (applies to non-numeric results) [facility] ([facility], ) Blood Type Laboratory test result Normal (applies to non-n umeric results) [facility] ([facility]) ID Date Data Source [id number] 04/19/2020 04:17:00 PM EST [facility] ([facility]) Name Value Range Interpretation Code Description Data Agnieszka rce(s) Supporting Document(s) Blood Type Laboratory test result Normal (applies to non-n umeric results) [facility] ([facility]) AB Screen (Indirect Mekhi)Vis Laboratory test result Normal (applies to non- numeric results) [facility]) ID Date Data Source [id number] 04/19/2020 10:15:00 AM EST [facility] ([facility]) Name Value Range Interpretation Code Description Data Agnieszka rce(s) Supporting Document(s) Laboratory test finding (navigational concept) Laboratory test r esult Normal (applies to non-numeric results) [facility] ([facility], ) A false negative result may occur [...] pathogens. DISCLAIMER: Testing was performed using the [employer] SARS-CoV-2 test. This test was developed and its performance characteristics determined by [employer]. This test has not been FDA cleared [...] or revoked sooner. ID Date Data Source [id number] 04/19/2020 10:15:00 AM EST [facility] ([facility], ) Name Value Range Interpretation Code Description Data Agnieszka rce(s) Supporting Document(s) Coronavirus 2019 Nasopharygeal Laboratory test result [facility] ([facility], ) By: SANSHAYAN Time: 1014 Laboratory test finding (navigational concept) Laboratory test r esult Normal (applies to non-numeric results) [facility] ([facility]) A false negative result may occur if [...] pathogens. DISCLAIMER: Testing was performed using the [employer] SARS-CoV-2 test. This test was developed and its performance characteristics determined by [employer]. This test has not been FDA cleared [...] or revoked sooner. ID Date Data Source [id number] 04/19/2020 10:15:00 AM EST [facility] ([facility]) Name Value Range Interpretation Code Description Data Agnieszka rce(s) Supporting Document(s) Laboratory test finding (navigational concept) Laboratory test r esult Normal (applies to non-numeric results) [facility] ([facility]) A false negative result may occur [...] pathogens. DISCLAIMER: Testing was performed using the [employer] SARS-CoV-2 test. This test was developed and its performance characteristics determined by [employer]. This test has not been FDA cleared [...] or revoked sooner. ID Date Data Source [id number] 04/19/2020 10:15:00 AM [facility] Name Value Range Interpretation Code Description Data Agnieszka rce(s) Supporting Document(s) SARS coronavirus 2 RNA [Presence] in Res piratory specimen by ISSA with probe detection NEGATIVE [facility] This lab was ordered by [facility] a nd reported by [facility]. ID Date Data Source [id number] 04/14/2020 11:16:00 AM [facility] [address] [place] [address] PHONE: [phone] FAX: [phone] Name .................. : DIMPLE Massey Acct Number.................. : [id number] ROOM. ................. : MR Number ................... : [id number] Stay type ............. : O/P Discharge Date......... ... : 04/12/20 Admit Date ......... : 04/12/20 Admit Phys .................... : FAITH SEGUNDO Date of ....... : 1985 Family Phys ................... : NONSTAFF Phone .................. : [phone] Age ................................ : 34 Film# .................. .:[id number] Sex ................................. : F Unsigned transcriptions are preliminary reports and do not represent a medical or legal document BREAST RIGHT [id number] COMPLETE:04/12/20 20:00 ADB 3090 (TEST REASON: PAIN [...] for: FAITH MCPHERSON via fax Copy for: [address] [place] [address] REC Page 1 of 1 Name Value Range Interpretation Code Description Data Agnieszka rce(s) Supporting Document(s) ID Date Data Source [id number] 04/14/2020 11:16:00 AM EST [facility] [address] [place] [address] PHONE: [phone] FAX: [phone] Name .................. : DIMPLE Massey Acct Number.................. : [id number] ROOM. ................. : MR Number ................... : [id number] Stay type ............. : O/P Discharge Date......... ... : 04/12/20 Admit Date ......... : 04/12/20 Admit Phys .................... : [facility] Date of ....... : 1985 Family Phys ................... : NONSTAFF Phone .................. : [phone] Age ................................ : 34 Film# .................. .:[id number] Sex ................................. : F Unsigned transcriptions are preliminary reports and do not represent a medical or legal document US BREAST LEFT [id number] COMPLETE:04/12/20 20:00 ADB 4645 (TEST REASON: DRAINAGE OF PUS FROM LEFT [...] By [place] M.D. , 04/14/20 11:16, [facility] Transcribe Initials: Dawit [place] anscribe Date: 04/12/20 22:11, Dictation Date: Copy for: FAITH MCPHERSON via fax Copy for: [facility] MED REC Page 1 of 1 Name Value Range Interpretation Code Description Data Agnieszka rce(s) Supporting Document(s) ID Date Data Source [id number] 04/12/2020 04:02:00 PM EST [facility] ([facility]) Name Value Range Interpretation Code Description Data Agnieszka rce(s) Supporting Document(s) Bacteria identified in Wound shallow by Aerobe culture Laborator y test result Normal (applies to non-numeric results) [facility] ([facility]) <content>FULL REPORT IN LAB NOTES (eCW a [...] Smoker completed Never S moker eCW1 ([facility]) Smoking 01/23/2021 12:00:00 AM EST Never Smoker completed Never S moker eCW1 ([facility]) Smoking 07/31/2020 12:00:00 AM EDT Never Smoker completed Never S moker eCW1 ([facility]) Smoking 07/31/2020 12:00:00 AM EDT Never Smoker completed Never S moker eCW1 ([facility]) Smoking 07/31/2020 12:00:00 AM EDT Never Smoker completed Never S moker eCW1 ([facility]) Smoking 07/31/2020 12:00:00 AM EDT Never Smoker completed Never S moker eCW1 ([facility]) Smoking 07/31/2020 12:00:00 AM EDT Never Smoker completed Never S moker eCW1 ([facility]) Smoking 05/01/2020 12:00:00 AM EST Never Smoker completed Never S moker eCW1 ([facility]) Smoking 05/01/2020 12:00:00 AM EST Never Smoker completed Never S moker eCW1 ([facility]) Smoking 05/01/2020 12:00:00 AM EST Never Smoker completed Never S moker eCW1 ([facility]) Smoking 05/01/2020 12:00:00 AM EST Never Smoker completed Never S moker eCW1 ([facility]) Smoking 05/01/2020 12:00:00 AM EST Never Smoker completed Never S moker eCW1 ([facility]) Smoking 04/24/2020 12:00:00 AM EST Never Smoker completed Never S moker eCW1 ([facility]) Smoking 04/19/2020 12:00:00 AM EST Never Smoker completed Never S moker eCW1 ([facility]) Vital Signs ID Date Data Source [id number] Name Value Range Interpretation Code Description Data Source(s) Body weight 162.6 [lb_av] 162.6 [lb_av] eCW1 ([facility]) Body height 65 [in_i] 65 [in_i] eCW1 ([facility]) Body mass index (BMI) [Ratio] 27.058 kg/m2 27.0 58 kg/m2 eCW1 ([facility]) Systolic blood pressure 122 mm[Hg] 122 mm[Hg] e CW1 ([facility]) Diastolic blood pressure 74 mm[Hg] 74 mm[Hg] eCW1 ([facility]) Systolic blood pressure 128 mm[Hg] 128 mm[Hg] M EDENT ([facility]) Diastolic blood pressure 72 mm[Hg] 72 mm[Hg] [facility] ([facility]) Body height 66 [in_i] 66 [in_i] [facility] ([facility]) 5'6" Body weight 166.38 [lb_av] 166.38 [lb_av] [facility] T ([facility]) Body mass index (BMI) [Ratio] 26.9 kg/m2 26.9 k g/m2 [facility] ([facility]) Heart rate 97 /min 97 /min [facility] ([facility]) Respiratory rate 14 /min 14 /min [facility] ( [facility]) Body temperature 98.5 [degF] 98.5 [degF] [facility] ([facility]) Oxygen saturation in Arterial blood by Pulse oximetry 99 % 99 % [facility] ([facility]) [place] body weight 130 [lb_av] 130 [lb_av] [facility] T ([facility]) Respiratory rate 18 /min 18 /min [facility] ( [facility]) Systolic blood pressure 122 mm[Hg] 122 mm[Hg] M EDENT ([facility]) Diastolic blood pressure 72 mm[Hg] 72 mm[Hg] [facility] ([facility]) Respiratory rate 18 /min 18 /min [facility] ( [facility]) Body weight 167 [lb_av] 167 [lb_av] eCW1 ([facility]) Body weight 75.75 kg 75.75 kg eCW1 ([facility]) Body height 65 [in_i] 65 [in_i] eCW1 ([facility]) Body mass index (BMI) [Ratio] 27.79 kg/m2 27.79 kg/m2 [facility] ([facility]) Heart rate 87 /min 87 /min eCW1 ([facility]) Body temperature 97.4 [degF] 97.4 [degF] eCW1 ( [facility]) Systolic blood pressure 130 mm[Hg] 130 mm[Hg] e CW1 ([facility]) Diastolic blood pressure 82 mm[Hg] 82 mm[Hg] eCW1 ([facility]) Body weight 168.00 [lb_av] 168.00 [lb_av] [facility] T ([facility]) Body mass index (BMI) [Ratio] 27.1 kg/m2 27.1 k g/m2 [facility] ([facility]) Heart rate 87 /min 87 /min [facility] ([facility]) Respiratory rate 20 /min 20 /min [facility] ( [facility]) Systolic blood pressure 130 mm[Hg] 130 mm[Hg] M [facility]ENT ([facility]) Diastolic blood pressure 80 mm[Hg] 80 mm[Hg] [facility] ([facility]) Body height 66 [in_i] 66 [in_i] [facility] ([facility]) 5'6" Body temperature 99.9 [degF] 99.9 [degF] [facility] ([facility]) Oxygen saturation in Arterial blood by Pulse oximetry 98 % 98 % [facility] ([facility]) [place] body weight 130 [lb_av] 130 [lb_av] [facility] T ([facility]) [place] body weight 130 [lb_av] 130 [lb_av] [facility] ([facility]) Body weight 169.38 [lb_av] 169.38 [lb_av] [facility] T ([facility]) Body mass index (BMI) [Ratio] 27.3 kg/m2 27.3 k g/m2 [facility] ([facility]) Systolic blood pressure 122 mm[Hg] 122 mm[Hg] M [facility] ([facility]) Respiratory rate 18 /min 18 /min [facility] ( [facility]) Diastolic blood pressure 72 mm[Hg] 72 mm[Hg] [facility] ([facility]) Body height 66 [in_i] 66 [in_i] [facility] ([facility]) 5'6" Heart rate 96 /min 96 /min [facility] ([facility]) Body temperature 98.9 [degF] 98.9 [degF] [facility] ([facility]) Oxygen saturation in Arterial blood by Pulse oximetry 97 % 97 % [facility] ([facility]) [place] body weight 130 [lb_av] 130 [lb_av] [facility] T ([facility], ) Systolic blood pressure 128 mm[Hg] 128 mm[Hg] M EDENT ([facility], ) Diastolic blood pressure 68 mm[Hg] 68 mm[Hg] [facility] ([facility], ) Heart rate 84 /min 84 /min [facility] ([facility], ) Respiratory rate 16 /min 16 /min [facility] ( [facility], ) Body temperature 97.8 [degF] 97.8 [degF] [facility] ([facility], ) Body height 66 [in_i] 66 [in_i] [facility] ([facility], ) 5'6" Oxygen saturation in Arterial blood by Pulse oximetry 99 % 99 % [facility] ([facility]) Systolic blood pressure 114 mm[Hg] 114 mm[Hg] M [facility] ([facility]) Diastolic blood pressure 72 mm[Hg] 72 mm[Hg] [facility] ([facility]) Body height 66 [in_i] 66 [in_i] [facility] ([facility]) 5'6" Body weight 166.38 [lb_av] 166.38 [lb_av] [facility] T ([facility]) Body mass index (BMI) [Ratio] 26.9 kg/m2 26.9 k g/m2 [facility] ([facility]) Heart rate 104 /min 104 /min [facility] ([facility]) [place] body weight 130 [lb_av] 130 [lb_av] [facility] T ([facility]) Respiratory rate 18 /min 18 /min [facility] ( [facility]) Body temperature 99.2 [degF] 99.2 [degF] [facility] ([facility]) [place] body weight 130 [lb_av] 130 [lb_av] [facility] T ([facility]) Systolic blood pressure 126 mm[Hg] 126 mm[Hg] M EDENT ([facility]) Diastolic blood pressure 74 mm[Hg] 74 mm[Hg] [facility] ([facility]) Heart rate 88 /min 88 /min [facility] ([facility]) Respiratory rate 16 /min 16 /min [facility] ( [facility]) Body height 66 [in_i] 66 [in_i] [facility] ([facility]) 5'6" Body weight 164.00 [lb_av] 164.00 [lb_av] [facility] T ([facility]) Body mass index (BMI) [Ratio] 26.5 kg/m2 26.5 k g/m2 [facility] ([facility]) Body weight 74.390 kg 74.390 kg [facility] ([facility]) Body surface area Derived from formula 1.84 m2 1.84 m2 [facility] ([facility]) Body weight 163 [lb_av] 163 [lb_av] eCW1 ([facility]) Respiratory rate 20 /min 20 /min eCW1 ([facility]) Body temperature 97.9 [degF] 97.9 [degF] eCW1 ( [facility]) Systolic blood pressure 120 mm[Hg] 120 mm[Hg] e CW1 ([facility]) Diastolic blood pressure 84 mm[Hg] 84 mm[Hg] eCW1 ([facility]) Body weight 73.94 kg 73.94 kg eCW1 ([facility]) Body height 65 [in_i] 65 [in_i] eCW1 ([facility]) Body mass index (BMI) [Ratio] 27.12 kg/m2 27.12 kg/m2 [facility] ([facility]) Heart rate 97 /min 97 /min eCW1 ([facility]) Systolic blood pressure 124 mm[Hg] 124 mm[Hg] M EDENT ([facility]) Diastolic blood pressure 74 mm[Hg] 74 mm[Hg] [facility] ([facility]) Body weight 165.00 [lb_av] 165.00 [lb_av] [facility] T ([facility]) Heart rate 106 /min 106 /min [facility] ([facility]) Oxygen saturation in Arterial blood by Pulse oximetry 98 % 98 % [facility] ([facility]) Body height 66 [in_i] 66 [in_i] [facility] ([facility]) 5'6" Body mass index (BMI) [Ratio] 26.6 kg/m2 26.6 k g/m2 [facility] ([facility]) Respiratory rate 18 /min 18 /min [facility] ( [facility]) Body temperature 99.3 [degF] 99.3 [degF] [facility] ([facility]) [place] body weight 130 [lb_av] 130 [lb_av] [facility] T ([facility]) Body temperature 98.1 [degF] 98.1 [degF] eCW1 ( [facility]) Systolic blood pressure 106 mm[Hg] 106 mm[Hg] e CW1 ([facility]) Diastolic blood pressure 78 mm[Hg] 78 mm[Hg] eCW1 ([facility]) Body weight 163 [lb_av] 163 [lb_av] eCW1 ([facility]) Body weight 73.94 kg 73.94 kg eCW1 ([facility]) Body height 65 [in_i] 65 [in_i] eCW1 ([facility]) Body mass index (BMI) [Ratio] 27.12 kg/m2 27.12 kg/m2 eCW1 ([facility]) Heart rate 83 /min 83 /min eCW1 ([facility]) Respiratory rate 18 /min 18 /min eCW1 ([facility]) Body weight 166 [lb_av] 166 [lb_av] eCW1 ([facility]) Body weight 75.3 kg 75.3 kg eCW1 ([facility]) Body height 65 [in_i] 65 [in_i] eCW1 ([facility]) Body mass index (BMI) [Ratio] 27.62 kg/m2 27.62 kg/m2 eCW1 ([facility]) Heart rate 102 /min 102 /min eCW1 ([facility]) Respiratory rate 18 /min 18 /min eCW1 ([facility]) Body temperature 98.4 [degF] 98.4 [degF] eCW1 ( [facility]) Systolic blood pressure 108 mm[Hg] 108 mm[Hg] e CW1 ([facility]) Diastolic blood pressure 68 mm[Hg] 68 mm[Hg] eCW1 ([facility]) Body weight 166 [lb_av] 166 [lb_av] eCW1 ([facility]) Body weight 75.3 kg 75.3 kg W1 ([facility]) Body height 65 [in_i] 65 [in_i] eCW1 ([facility]) Body mass index (BMI) [Ratio] 27.62 kg/m2 27.62 kg/m2 [facility]CW1 ([facility] [facility]) Heart rate 102 /min 102 /min eCW1 ([facility]) Respiratory rate 18 /min 18 /min eCW1 ([facility]) Body temperature 98.4 [degF] 98.4 [degF] eCW1 ( [facility], [facility]) Systolic blood pressure 108 mm[Hg] 108 mm[Hg] e CW1 ([facility], [facility]) Diastolic blood pressure 68 mm[Hg] 68 mm[Hg] eCW1 ([facility]) Body mass index (BMI) [Ratio] 26.3 kg/m2 26.3 k g/m2 MEDENT ([facility]) Respiratory rate 18 /min 18 /min MEDENT ( [facility]) Body temperature 99.8 [degF] 99.8 [degF] [facility] Oxygen saturation in Arterial blood by Pulse oximetry 121 % 121 % MED[facility] ([facility]) Heart rate 99 /min 99 /min MED[facility] ([facility]) Systolic blood pressure 138 mm[Hg] 138 mm[Hg] M EDENT ([facility]) Diastolic blood pressure 87 mm[Hg] 87 mm[Hg] [facility] ([facility]) Body height 66 [in_i] 66 [in_i] MEDENT ([facility]) 5'6" Body weight 163.00 [lb_av] 163.00 [lb_av] MEDEN T ([facility]) [place] body weight 130 [lb_av] 130 [lb_av] MEDEN T ([facility]) Systolic blood pressure 122 mm[Hg] 122 mm[Hg] M EDENT ([facility]) Diastolic blood pressure 64 mm[Hg] 64 mm[Hg] [facility] ([facility]) Body weight 164.00 [lb_av] 164.00 [lb_av] MEDEN T ([facility]) Body height 66 [in_i] 66 [in_i] MEDENT ([facility]) 5'6" [place] body weight 130 [lb_av] 130 [lb_av] MEDEN T ([facility]) Body mass index (BMI) [Ratio] 26.5 kg/m2 26.5 k g/m2 [facility] ([facility]) Heart rate 103 /min 103 /min [facility] ([facility]) Respiratory rate 18 /min 18 /min [facility] ( [facility]) Body temperature 98.9 [degF] 98.9 [degF] MEDENT ([facility]) Oxygen saturation in Arterial blood by Pulse oximetry 96 % 96 % [facility] ([facility]) Systolic blood pressure 112 mm[Hg] 112 mm[Hg] M EDENT ([facility]) Diastolic blood pressure 70 mm[Hg] 70 mm[Hg] [facility] ([facility]) Body height 66 [in_i] 66 [in_i] MEDENT ([facility]) 5'6" Body weight 166.38 [lb_av] 166.38 [lb_av] MEDEN T ([facility]) Body mass index (BMI) [Ratio] 26.9 kg/m2 26.9 k g/m2 [facility] ([facility]) Heart rate 99 /min 99 /min [facility] ([facility]) Respiratory rate 18 /min 18 /min [facility] ( [facility]) Body temperature 99.0 [degF] 99.0 [degF] [facility] ([facility]) Oxygen saturation in Arterial blood by Pulse oximetry 99 % 99 % [facility] ([facility]) [place] body weight 130 [lb_av] 130 [lb_av] MEDEN T ([facility]) Diastolic blood pressure 60 mm[Hg] 60 mm[Hg] [facility] ([facility]) Body height 66 [in_i] 66 [in_i] [facility] ([facility]) 5'6" Body weight 162.00 [lb_av] 162.00 [lb_av] MEDEN T ([facility]) Systolic blood pressure 120 mm[Hg] 120 mm[Hg] [facility]) Body mass index (BMI) [Ratio] 26.1 kg/m2 26.1 k g/m2 [facility] ([facility]) [place] body weight 130 [lb_av] 130 [lb_av] [facility] ([facility]) Body weight 73.483 kg 73.483 kg [facility] ([facility]) Body surface area Derived from formula 1.83 m2 1.83 m2 [facility] ([facility]) Systolic blood pressure 114 mm[Hg] 114 mm[Hg] [facility] Body height 66 [in_i] 66 [in_i] [facility] ([facility]) 5'6" Body temperature 99.1 [degF] 99.1 [degF] [facility] ([facility]) Heart rate 66 /min 66 /min [facility] ([facility]) [place] body weight 130 [lb_av] 130 [lb_av] [facility] T ([facility]) Oxygen saturation in Arterial blood by Pulse oximetry 97 % 97 % [facility] ([facility]) Body weight 158.38 [lb_av] 158.38 [lb_av] [facility] T ([facility]) Diastolic blood pressure 68 mm[Hg] 68 mm[Hg] [facility] ([facility]) Respiratory rate 18 /min 18 /min [facility] ( [facility]) Body mass index (BMI) [Ratio] 25.6 kg/m2 25.6 k g/m2 [facility] ([facility])
== END 2021-02-17 01:56 | disposition left against medical advice (07) ==
LOC: M ED 00:49
DX: Z53.29 Procedure and treatment not carried out because of patient's decision for other reasons (principal)

== ENCOUNTER → 2021-02-21 | Outpatient (CLI) | payer OTHER ==
[~2021-02-21] MED LIST changes: -MONT10TA10; +MONT10TA97
[2021-02-21 18:45] LABS: GC DNA AMPLIFICATION NEGATIVE (NEGATIVE)
== END ==
LOC: M PLALAB 14:42
PROVIDERS: ATTEND Specialist
DX: Z20.2 Contact with and (suspected) exposure to infections with a predominantly sexual mode of transmission (principal)
CPT/HCPCS: 36415; 87491; 87591; 90471; 90686; G0463

== ENCOUNTER → 2021-04-11 | Outpatient (CLI) | payer OTHER | LOC: M WHC 14:11 | PROVIDERS: ATTEND Advanced Practice Midwife | DX: Z53.9 Procedure and treatment not carried out, unspecified reason (principal) ==

== ENCOUNTER → 2021-04-20 | Outpatient (CLI) | payer OTHER | LOC: M WHC 08:47 | PROVIDERS: ATTEND Specialist | DX: O26.892 Other specified pregnancy related conditions, second trimester (principal); Z3A.19 19 weeks gestation of pregnancy ==

== ENCOUNTER → 2021-05-07 | Outpatient (CLI) | payer OTHER | LOC: M WHC 08:34 | PROVIDERS: ATTEND Specialist | DX: Z34.82 Encounter for supervision of other normal pregnancy, second trimester (principal) ==

== ENCOUNTER → 2021-05-30 | Outpatient (CLI) | payer OTHER ==
[2021-05-30 14:21] LABS: ALBUMIN 2.7 GM/DL (3.2-5.2); ALT/SGPT 15 U/L (12-78); AMYLASE 76 U/L (25-115); BILIRUBIN,TOTAL 0.3 MG/DL (0.2-1.0); BLOOD UREA NITROGEN 4 MG/DL (7-18); CALCIUM LEVEL 8.4 MG/DL (8.5-10.1); CARBON DIOXIDE LEVEL 25 MEQ/L (21-32); CHLORIDE LEVEL 106 MEQ/L (98-107); GLOMERULAR FILTRATION RATE > 60.0 (>60); GLUCOSE, FASTING 167 MG/DL (70-100); LIPASE 98 U/L (73-393); POTASSIUM SERUM 3.9 MEQ/L (3.5-5.1); SODIUM LEVEL 136 MEQ/L (136-145); TOTAL PROTEIN 6.2 GM/DL (6.4-8.2)
== END ==
LOC: M PLALAB 10:30
PROVIDERS: ATTEND Advanced Practice Midwife
DX: O26.892 Other specified pregnancy related conditions, second trimester (principal)

== ENCOUNTER → 2021-05-30 | Outpatient (CLI) | payer OTHER ==
[2021-05-30 14:09] LABS: HEMATOCRIT 35.5 % (36.0-47.0); HEMOGLOBIN 11.3 g/dl (12.0-15.5); MEAN CORPUSCULAR HEMOGLOBIN 28.8 pg (27.0-33.0); MEAN CORPUSCULAR HGB CONC 31.8 g/dl (32.0-36.5); MEAN CORPUSCULAR VOLUME 90.3 fl (80.0-96.0); PLATELET COUNT, AUTOMATED 296 10^3/uL (150-450); RED BLOOD COUNT 3.93 10^6/uL (4.00-5.40); WHITE BLOOD COUNT 12.4 10^3/uL (4.0-10.0)
[2021-05-30 15:30] LABS: GC DNA AMPLIFICATION NEGATIVE (NEGATIVE)
== END ==
LOC: M PLALAB 10:27
PROVIDERS: ATTEND Obstetrics & Gynecology
DX: Z36.89 Encounter for other specified antenatal screening (principal); Z3A.25 25 weeks gestation of pregnancy

== ENCOUNTER → 2021-06-05 | Outpatient (CLI) | payer OTHER | LOC: M LAB 07:15 | PROVIDERS: ATTEND Obstetrics & Gynecology | DX: O99.810 Abnormal glucose complicating pregnancy (principal) ==

== ENCOUNTER 2021-06-09 19:01 | Emergency (ER) | payer OTHER ==
[~2021-06-09] VITALS: Ht 167.6 cm; Wt 78.2 kg
[2021-06-09] MEDS ORDERED: PROAAER10 PO (19:15)
[2021-06-09] MEDS ORDERED: PREN1TAB14 PO (19:15)
[2021-06-09] MEDS ORDERED: PANT40TA29 PO (19:15)
[2021-06-09] MEDS ORDERED: ALBUTEROL SULFATE 2.5 MG/0.5 ML INH NEB SOLN NEB PRN (20:20)
[2021-06-09 21:17] LABS: BASO % 0.3 % (0.0-1.0); EOS # 0.6 10^3/uL (0.0-0.5); EOS % 4.5 % (0.0-3.0); HEMATOCRIT 30.7 % (36.0-47.0); LYMPH # 2.6 10^3/uL (1.5-5.0); LYMPH % 20.5 % (24.0-44.0); MEAN CORPUSCULAR HEMOGLOBIN 28.6 pg (27.0-33.0); MEAN CORPUSCULAR HGB CONC 32.6 g/dl (32.0-36.5); MEAN CORPUSCULAR VOLUME 87.7 fl (80.0-96.0); MONO # 1.1 10^3/uL (0.0-0.8); MONO % 8.7 % (2.0-8.0); NEUTROPHILS # 8.2 10^3/uL (1.5-8.5); NEUTROPHILS % 65.6 % (36.0-66.0); PLATELET COUNT, AUTOMATED 305 10^3/uL (150-450); WHITE BLOOD COUNT 12.5 10^3/uL (4.0-10.0)
[2021-06-09 21:30] LABS: ALBUMIN 2.7 GM/DL (3.2-5.2); ALT/SGPT 16 U/L (12-78); BILIRUBIN,DIRECT < 0.1 MG/DL (0.0-0.2); BILIRUBIN,TOTAL 0.1 MG/DL (0.2-1.0); BLOOD UREA NITROGEN 5 MG/DL (7-18); CALCIUM LEVEL 8.3 MG/DL (8.5-10.1); CARBON DIOXIDE LEVEL 25 MEQ/L (21-32); CHLORIDE LEVEL 108 MEQ/L (98-107); CREATININE FOR GFR 0.49 MG/DL (0.55-1.30); GLOMERULAR FILTRATION RATE > 60.0 (>60); GLUCOSE, FASTING 80 MG/DL (70-100); POTASSIUM SERUM 3.5 MEQ/L (3.5-5.1); SODIUM LEVEL 139 MEQ/L (136-145)
[2021-06-09 21:35] LABS: AMORPHOUS SEDIMENT SMALL (NEGATIVE); APPEARANCE, URINE CLOUDY (CLEAR); BACTERIA, URINE AUTO 1+ (NEGATIVE); BILIRUBIN, URINE AUTO NEGATIVE (NEGATIVE); BLOOD, URINE BLOOD NEGATIVE (NEGATIVE); COLOR, URINE YELLOW (YELLOW); GLUCOSE, URINE (UA) AUTO NEGATIVE (NEGATIVE); KETONE, URINE AUTO NEGATIVE (NEGATIVE); LEUKOCYTE ESTERASE, URINE AUTO 3+ (NEGATIVE); NITRITE, URINE AUTO NEGATIVE (NEGATIVE); PROTEIN, URINE AUTO 1+ mg/dL (NEGATIVE); RBC, URINE AUTO 2 /HPF (0-3); SPECIFIC GRAVITY URINE AUTO 1.014 (1.002-1.035); SQUAMOUS EPITHELIAL CELL UR AU 12 /HPF (0-6); UROBILINOGEN, URINE AUTO 0.2 mg/dL (0.0-2.0); WBC, URINE AUTO 18 /HPF (0-3)
[2021-06-09 22:01] LABS: RSV AMPLIFICATION NEGATIVE (NEGATIVE)
[2021-06-09 23:00] VITALS: BP 131/73
[2021-06-09] MEDS ORDERED: ALBU83IN NEB (23:02)
[2021-06-10] MEDS ORDERED: FOSFOMYCIN TROMETHAMINE 3 GM POWDER PACKET (MONUROL) PO ONE
== END 2021-06-09 23:40 | disposition home or self-care (01) ==
LOC: M ED 19:01
DX: O23.43 Unspecified infection of urinary tract in pregnancy, third trimester (principal); O99.513 Diseases of the respiratory system complicating pregnancy, third trimester; J45.901 Unspecified asthma with (acute) exacerbation; Z88.6 Allergy status to analgesic agent; Z79.51 Long term (current) use of inhaled steroids; Z79.899 Other long term (current) drug therapy

== ENCOUNTER → 2021-06-27 | Outpatient (CLI) | payer OTHER ==
[~2021-06-27] MED LIST changes: +ALBU83IN NEB; +PREN1TAB14 PO; +PROAAER10 PO
== END ==
LOC: M WHC 13:25
PROVIDERS: ATTEND Obstetrics & Gynecology
DX: O44.43 Low lying placenta NOS or without hemorrhage, third trimester (principal)

== ENCOUNTER 2021-08-05 11:19 | Outpatient (CLI) | payer OTHER ==
[~2021-08-05] VITALS: Ht 167.6 cm; Wt 83.5 kg
[2021-08-05 11:37] VITALS: BP 139/76
== END 2021-08-05 13:05 | disposition home or self-care (01) ==
LOC: M LDO 11:19
PROVIDERS: ATTEND Obstetrics & Gynecology
DX: O26.893 Other specified pregnancy related conditions, third trimester (principal); O23.593 Infection of other part of genital tract in pregnancy, third trimester; Z3A.35 35 weeks gestation of pregnancy
CPT/HCPCS: 59025; 59412; G0378; G0463

== ENCOUNTER → 2021-08-08 | Outpatient (REF) | payer OTHER | LOC: M SFHCWAGY 09:57 | PROVIDERS: ATTEND Obstetrics & Gynecology | DX: Z36.85 Encounter for antenatal screening for Streptococcus B (principal) ==

== ENCOUNTER 2021-08-26 22:15 | Outpatient (CLI) | payer OTHER ==
[~2021-08-26] VITALS: Ht 167.6 cm; Wt 84.6 kg
[~2021-08-26 22:15] MED LIST changes: +ALBU2.5V10 NEB; -ALBU83IN NEB
[2021-08-26 22:41] VITALS: BP 137/79
[2021-08-26] MEDS ORDERED: PROTPAK PO (23:02)
[2021-08-26] MEDS ORDERED: LR 1,000 ML IV ONE (23:50)
[2021-08-27] MEDS ORDERED: LR 1,000 ML IV ONE (00:05)
[2021-08-27] MEDS ORDERED: ACETAMINOPHEN 500 MG TAB PO ONE (00:05)
[2021-08-27 00:20] VITALS: BP 130/76
== END 2021-08-27 01:40 | disposition home or self-care (01) ==
LOC: M LDO 22:15
PROVIDERS: ATTEND Obstetrics & Gynecology
DX: O26.893 Other specified pregnancy related conditions, third trimester (principal); N89.8 Other specified noninflammatory disorders of vagina; R06.02 Shortness of breath; Z3A.38 38 weeks gestation of pregnancy

== ENCOUNTER 2021-08-30 08:31 | Inpatient (IN) | payer OTHER ==
[2021-08-30] VITALS (34 sets, daily range): BP systolic 110–168; BP diastolic 56–92
[~2021-08-30] VITALS: Ht 167.6 cm; Wt 83.7 kg
[~2021-08-30 08:31] MED LIST changes: +PROTPAK PO
[2021-08-30 09:31] LABS: HEMATOCRIT 37.9 % (36.0-47.0); HEMOGLOBIN 12.2 g/dl (12.0-15.5); MEAN CORPUSCULAR HEMOGLOBIN 28.6 pg (27.0-33.0); MEAN CORPUSCULAR HGB CONC 32.2 g/dl (32.0-36.5); MEAN CORPUSCULAR VOLUME 88.8 fl (80.0-96.0); PLATELET COUNT, AUTOMATED 256 10^3/uL (150-450); RED BLOOD COUNT 4.27 10^6/uL (4.00-5.40); WHITE BLOOD COUNT 10.6 10^3/uL (4.0-10.0)
[2021-08-30] MEDS ORDERED: CARBOPROST TROMETHAMINE 250 MCG/ML AMP IM PRN (10:40)
[2021-08-30] MEDS ORDERED: miSOPROStol 50MCG 1/2 TABLET PO ONE (10:40)
[2021-08-30] MEDS ORDERED: TRANEXAMIC ACID INJection 1,000 MG in NS 100 ML IV PRN (10:40)
[2021-08-30] MEDS ORDERED: LIDOCAINE 1% MDV 20ML VIAL INFIL PRN (10:40)
[2021-08-30] MEDS ORDERED: METHYLERGONOVINE MALEATE 0.2 MG/ML VIAL (J2210) IM PRN (10:40)
[2021-08-30] MEDS: LR 1,000 ML IV SCH ×2 (17:19→20:36)
[2021-08-30] MEDS: OXYTOCIN DRIP 30 UNITS in IV 1 EA IV SCH (17:20)
[2021-08-30] MEDS ORDERED: FENTANYL 2MCG/ML ROPIVACAINE 0.2% IN 0.9% NACL 100ML IVBAG As Ordered ONE (19:39)
[2021-08-30] MEDS ORDERED: ePHEDrine SULFATE 25 MG/5 ML(5MG/ML) SYRINGE IVP PRN (21:10)
[2021-08-30] MEDS ORDERED: LR 500 ML IV PRN (21:10)
[2021-08-30] MEDS ORDERED: NALOXONE INJ 0.4MG/1ML VIAL (J2310 PER 1MG) IV PRN (21:10)
[2021-08-30] MEDS ORDERED: EPIDURAL/PCA KEYS XX PRN (21:10)
[2021-08-30] MEDS: FENTANYL/ROPIVACAINE/NACL BAG 100 ML EPIDURAL SCH (21:14)
[2021-08-30] MEDS: ONDANSETRON 4MG/2ML VIAL IV PRN (21:19)
[2021-08-31] VITALS (10 sets, daily range): BP systolic 114–156; BP diastolic 65–101
[2021-08-31 00:12] LABS: CORD GAS ABE A -1.9; CORD GAS HCO3 A 24.5 MEQ/L; CORD GAS HCO3 V 24.3 MEQ/L; CORD GAS O2 SAT A 75.8 %; CORD GAS O2 SAT V 76.2 %; CORD GAS PCO2 A 47.3 mmHg; CORD GAS PCO2 V 46.8 mmHg; CORD GAS PH A 7.332 UNITS; CORD GAS PH V 7.334 UNITS; CORD GAS PO2 A 30.9 mmHg; CORD GAS PO2 V 31.4 mmHg; CORD GAS SBC A 22.3 MEQ/L; CORD GAS SBC V 22.2 MEQ/L; CORD GAS TCO2 A 25.9 MEQ/L; CORD GAS TCO2 V 25.8 MEQ/L
[2021-08-31] MEDS ORDERED: OXYTOCIN DRIP 30 UNITS in IV 1 EA IV SCH (00:30)
[2021-08-31] MEDS ORDERED: RHOGAM 300 MCG (1500 IU) INJ (J2790) IM SCH (00:30)
[2021-08-31] MEDS ORDERED: MOM 30ML SUSPENSION UDC PO PRN (00:30)
[2021-08-31] MEDS ORDERED: DIBUCAINE 1% OINTMENT 30GM TOP PRN (00:30)
[2021-08-31] MEDS ORDERED: ACETAMINOPHEN TAB 650MG DOSE (2X325MG) PO PRN (00:30)
[2021-08-31] MEDS ORDERED: METHYLERGONOVINE MALEATE 0.2 MG TAB PO PRN (00:30)
[2021-08-31] MEDS ORDERED: DOCUSATE SODIUM 100MG CAPSULE PO PRN (00:30)
[2021-08-31] MEDS ORDERED: IBUPROFEN 600MG TAB PO PRN (00:30)
[2021-08-31] MEDS: ONDANSETRON 4MG/2ML VIAL IV PRN (05:08)
[2021-08-31] MEDS: OXYTOCIN DRIP 30 UNITS in IV 1 EA IV PRN ×2 (05:09→05:16)
[2021-08-31] MEDS: IBUPROFEN 800 MG TAB PO PRN ×3 (05:09→22:56)
[2021-08-31] MEDS: diphenhydrAMINE 50MG/ML VIAL (J1200) IV PRN ×2 (05:10→05:16)
[2021-08-31] MEDS: LR 1,000 ML IV SCH ×2 (05:12→05:15)
[2021-08-31] MEDS: FENTANYL/ROPIVACAINE/NACL BAG 100 ML EPIDURAL SCH ×3 (05:12→08:16)
[2021-08-31] MEDS: OXYTOCIN DRIP 30 UNITS in IV 1 EA IV SCH ×3 (05:14→08:17)
[2021-08-31] MEDS: PRENATAL VITAMINS CHEWABLE TABLET PO SCH (09:08)
[2021-08-31] MEDS: ACETAMINOPHEN 500 MG TAB PO PRN (09:10)
[2021-08-31] MEDS ORDERED: PERCOCET 5MG/325MG TAB PO PRN (16:10)
[2021-09-01] MEDS: ACETAMINOPHEN 500 MG TAB PO PRN (04:57)
[2021-09-01 06:00] VITALS: BP 117/60
[2021-09-01] MEDS: PRENATAL VITAMINS CHEWABLE TABLET PO SCH (07:45)
[2021-09-01] MEDS ORDERED: ACET-683 PO (10:04)
[2021-09-01] MEDS ORDERED: IBUP80TA PO (10:04)
[2021-09-01] MEDS: IBUPROFEN 800 MG TAB PO PRN (15:14)
[2021-09-02] MEDS ORDERED: MEASLES,MUMPS,RUBELLA VACCINE INJ (MMR-II) (90707) SC.IMMUN ONE (09:00)
== END 2021-09-01 16:35 | disposition home or self-care (01) | DRG 807 ==
LOC: M LDI 08:31 → M OBS 08-31 07:16
PROVIDERS: ADMIT Obstetrics & Gynecology; ATTEND Obstetrics & Gynecology
PROC: 3E033VJ Introduction of Other Hormone into Peripheral Vein, Percutaneous Approach (ICD-10-PCS; 2021-08-30)
PROC: 10E0XZZ Delivery of Products of Conception, External Approach (ICD-10-PCS; principal; 2021-08-31)
DX: O99.344 Other mental disorders complicating childbirth (principal); Z37.0 Single live birth; F43.10 Post-traumatic stress disorder, unspecified; F31.9 Bipolar disorder, unspecified; O69.81X0 Labor and delivery complicated by cord around neck, without compression, not applicable or unspecified; Z3A.39 39 weeks gestation of pregnancy

== ENCOUNTER → 2021-10-01 | Outpatient (CLI) | payer OTHER ==
[~2021-10-01] MED LIST changes: +ACET-683 PO; +IBUP80TA PO
[2021-10-01 17:21] LABS: BASO # 0.1 10^3/uL (0.0-0.2); BASO % 0.6 % (0.0-1.0); EOS # 0.9 10^3/uL (0.0-0.5); EOS % 11.5 % (0.0-3.0); HEMATOCRIT 42.6 % (36.0-47.0); HEMOGLOBIN 13.3 g/dl (12.0-15.5); LYMPH # 2.3 10^3/uL (1.5-5.0); MEAN CORPUSCULAR HEMOGLOBIN 28.7 pg (27.0-33.0); MEAN CORPUSCULAR HGB CONC 31.2 g/dl (32.0-36.5); MEAN CORPUSCULAR VOLUME 91.8 fl (80.0-96.0); MONO # 0.6 10^3/uL (0.0-0.8); MONO % 7.4 % (2.0-8.0); NEUTROPHILS # 4.1 10^3/uL (1.5-8.5); NEUTROPHILS % 51.2 % (36.0-66.0); PLATELET COUNT, AUTOMATED 274 10^3/uL (150-450); RED BLOOD COUNT 4.64 10^6/uL (4.00-5.40)
[2021-10-01 17:36] LABS: ALBUMIN 3.9 GM/DL (3.2-5.2); ALT/SGPT 38 U/L (12-78); BILIRUBIN,DIRECT < 0.1 MG/DL (0.0-0.2); BILIRUBIN,TOTAL 0.3 MG/DL (0.2-1.0); TOTAL PROTEIN 7.1 GM/DL (6.4-8.2)
[2021-10-01 17:55] LABS: HEPATITIS B SURFACE ANTIBODY NEGATIVE (POSITIVE)
[2021-10-01 18:35] LABS: HIV 1&2 SCREEN CENTAUR NEGATIVE (NEGATIVE)
== END ==
LOC: M PLALAB 13:18
PROVIDERS: ATTEND Family Medicine
DX: L40.0 Psoriasis vulgaris (principal)

== ENCOUNTER → 2021-12-26 | Outpatient (REF) | payer OTHER | LOC: M LAB REF 16:43 | PROVIDERS: ATTEND Physician Assistant | DX: J02.9 Acute pharyngitis, unspecified (principal) ==

== ENCOUNTER → 2022-03-28 | Outpatient (CLI) | payer OTHER ==
[~2022-03-28] MED LIST changes: +ADVA115A INH; -DOXY-350 PO; +DOXY-444 PO; +LORA24TA PO
== END ==
LOC: M LABSMTC 09:18
PROVIDERS: ATTEND Anesthesiology
DX: Z01.818 Encounter for other preprocedural examination (principal); Z11.52 Encounter for screening for COVID-19

== ENCOUNTER 2022-04-01 13:26 | Day surgery (SDC) | payer OTHER ==
[~2022-04-01] VITALS: Ht 167.6 cm; Wt 73.4 kg
[~2022-04-01 13:26] MED LIST changes: +NS 1,000 ML IV ONE
[2022-04-01] MEDS ORDERED: fentaNYL 100 MCG/2 ML INJECTION As Ordered ONE (14:23)
[2022-04-01] MEDS ORDERED: propofoL 200 MG/20 ML VIAL As Ordered ONE ×2 (14:24→14:47)
[2022-04-01] MEDS ORDERED: LIDOCAINE 2% 100MG/5ML SDV (FOR ANES.) As Ordered ONE (14:24)
[2022-04-01 15:11] VITALS: BP 134/93
== END 2022-04-01 15:53 | disposition home or self-care (01) ==
LOC: M OPP 13:26
PROVIDERS: ATTEND Internal Medicine Gastroenterology
DX: K22.89 Other specified disease of esophagus (principal); K22.2 Esophageal obstruction; K29.70 Gastritis, unspecified, without bleeding; Z79.02 Long term (current) use of antithrombotics/antiplatelets; Z79.3 Long term (current) use of hormonal contraceptives; Z79.899 Other long term (current) drug therapy; Z79.51 Long term (current) use of inhaled steroids; Z79.1 Long term (current) use of non-steroidal anti-inflammatories (NSAID); Z88.6 Allergy status to analgesic agent; Z91.048 Other nonmedicinal substance allergy status; F32.9 Major depressive disorder, single episode, unspecified; F41.9 Anxiety disorder, unspecified; J45.909 Unspecified asthma, uncomplicated

== ENCOUNTER 2022-04-27 00:41 | Emergency (ER) | payer OTHER ==
[~2022-04-27] VITALS: Ht 167.6 cm; Wt 75.1 kg
[2022-04-27 00:41] VITALS: BP 138/82
[~2022-04-27 00:41] MED LIST changes: -NS 1,000 ML IV ONE
[2022-04-27] MEDS ORDERED: BACT800T5 PO (10:47)
[2022-04-27] MEDS ORDERED: POLYSOL OS (10:47)
== END 2022-04-27 01:30 | disposition left against medical advice (07) ==
LOC: M ED 00:41
DX: Z53.21 Procedure and treatment not carried out due to patient leaving prior to being seen by health care provider (principal)

== ENCOUNTER 2022-04-27 08:33 | Emergency (ER) | payer OTHER ==
[~2022-04-27] VITALS: Ht 167.6 cm; Wt 74.3 kg
[2022-04-27] MEDS ORDERED: BACT800T5 PO (10:47)
[2022-04-27] MEDS ORDERED: POLYSOL OS (10:47)
[2022-04-27 11:00] VITALS: BP 121/80
== END 2022-04-27 11:01 | disposition home or self-care (01) ==
LOC: M ED 08:33
DX: L03.211 Cellulitis of face (principal); Z88.6 Allergy status to analgesic agent; Z91.048 Other nonmedicinal substance allergy status; Z79.899 Other long term (current) drug therapy